=== PATIENT | male | born 1955 | race African-American/Black ===

== ENCOUNTER 2016-09-11 14:21 | Emergency (ER) | payer OTHER ==
[2016-09-11 14:34] VITALS: BP 109/69; PULSE 86; TEMP 97.9; BMI 23.5
[2016-09-11] MEDS ORDERED: LIDOCAINE 5% TOPICAL PATCH TP ONE (14:48)
--- NOTE | 2016-09-11 14:54 | PDOC ---
History of Present Illness - General Chief Complaint: Pain, Acute Stated Complaint: LEG PAIN Time Seen by Provider: 09/11/16 14:31 History Source: Patient - History of Present Illness Occurred: reports: yesterday Severity: Yes: moderate Lower Extremity Pain Location: right: other (thigh) Past History - Past Medical History Allergies/Adverse Reactions: Allergies Allergy/AdvReac Type Severity Reaction Status Date / Time Penicillins Allergy Verified 09/11/16 14:23 aspirin AdvReac Intermediate Verified 09/11/16 14:23 Home Medications: Ambulatory Orders Ammonium Lactate Lotion [Lac-Hydrin 12] 1 applic TP DAILY 07/26/15 Clotrimazole 15 gm TP BID 07/26/15 Fluocinonide 0.05% Cream [Lidex 0.05% Cream -] 1 applic TP BID 07/26/15 Ergocalciferol (Vitamin D2) [Vitamin D2] 50,000 unit PO WEEKLY #5 capsule Folic Acid - 1 mg PO DAILY #30 tablet 07/27/15 Lactobacillus Acidophilus/Pect [Acidophilus-Pectin Capsule] 1 tab PO BID #60 capsule 07/27/15 Lactulose (Oral Use) [Cephulac -] 20 gm PO BID #6 bottle 07/27/15 Levetiracetam 500 mg PO BID #60 tablet 07/27/15 Omeprazole 20 mg PO DAILY #30 capsule.dr 07/27/15 Rifaximin [Xifaxan -] 1 tab PO BID #60 tablet 07/27/15 Sucralfate Oral Suspension [Carafate Oral Suspension -] 1 gm PO TID #60 ml 07/27 Tamsulosin HCl [Flomax -] 0.4 mg PO DAILY #30 cap.er.24h 07/27/15 Lidocaine 5% Patch [Lidoderm Patch -] 1 patch TP DAILY #7 patch 09/11/16 Spironolactone 50 mg PO ASDIR 09/11/16 GI Disorders: Yes (GI bleed) HTN: Yes Liver Disease: Yes (HEP C,cirrhosis) - Surgical History Abdominal Surgery: Yes (GASTRIC BYPASS) - Psycho/Social/Smoking Cessation Hx Anxiety: No Suicidal Ideation: No Smoking History: Former smoker Have you smoked in the past 12 months: No Number of Cigarettes Smoked Daily: 10 If you are a former smoker, when did you quit?: 30 years ago Information on smoking cessation initiated: No 'Breaking Loose' booklet given: 09/10/13 Hx Alcohol Use: No Drug/Substance Use Hx: Yes (HX OF HERION, CRACK) Substance Use Type: Cocaine, Heroin Hx Substance Use Treatment: Yes Review of Systems - Review of Systems Constitutional: No: Chills, Fever Musculoskeletal: No: Back Pain, Joint Pain, Joint Swelling, Muscle Weakness Neurological: No: Numbness, Tingling, Weakness *Physical Exam - Vital Signs Last Vital Signs Temp Pulse Resp BP Pulse Ox 97.9 F 86 18 109/69 98 09/11/16 14:24 09/11/16 14:24 09/11/16 14:24 09/11/16 14:24 09/11/16 14:24 - Physical Exam General Appearance: Yes: Appropriately Dressed. No: Apparent Distress HEENT: positive: Normal Voice Neck: positive: Supple Respiratory/Chest: negative: Respiratory Distress Musculoskeletal: positive: Normal Inspection Extremity: positive: Normal Inspection, Tender. 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 Pain located to posterior aspect of right thigh, unable to describe and does not radiate. Denies any back pain currently and no sensory changes, lower extremity weakness. Patient continues to be able to bear weight with his walker. No history of similar pain in the past. States he saw his doctor yesterday and given naproxen with no relief. Pt well berkley and in in NAD w/ minimal ttp to posterior R thigh but no swelling or skin changes otherwise. Unclear etiology of pain at this time, possibly musculoskeletal. Dc w/ lidoderm patch and encourage PMD f/u if pain persists. *DC/Admit/Observation/Transfer Diagnosis at time of Disposition: Thigh pain Qualifiers: Laterality: right Qualified Code(s): M79.651 - Pain in right thigh - Discharge Dispostion Disposition: HOME - Prescriptions Prescriptions: Lidocaine 5% Patch [Lidoderm Patch -] 1 patch TP DAILY #7 patch - Patient Instructions Additional Instructions: Use patch as directed and follow up with your PMD if pain persists
== END 2016-09-11 15:22 | disposition home or self-care (01) ==
LOC: JERFT 14:21
DX: M79.651 Pain in right thigh (principal); I10 Essential (primary) hypertension; K74.69 Other cirrhosis of liver; B19.20 Unspecified viral hepatitis C without hepatic coma; Z87.891 Personal history of nicotine dependence
CPT/HCPCS: 99281-25

== ENCOUNTER 2016-11-28 19:00 | Inpatient (IN) | payer OTHER ==
--- NOTE | 2016-11-28 20:26 | PDOC ---
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 Patient reports 2 day ago he woke up when he noted some minimal swelling to the left eye. States applying a cold compress to the left eye with no improvement. He reports today the swelling became worse and now he is unable to open his eye. Denies any changes in vision. Also reports decreased appetite because he has been feeling unwell. The patient denies fever, chills, cough, SOB, chest pain, and palpitations. The patient denies abdominal pain, nausea, vomiting, and diarrhea. Allergies: penicillin, aspirin Social History: Polysubstance abuse (heroin and cocaine). Former etoh abuse ( quit several years ago) Past Surgical History: gastric bypass PCP: Dr. Rangel Bernard <Jessy Epps - Last Filed: 11/29/16 01:26> - General Stated Complaint: CELLULITIS LEFT EYE Time Seen by Provider: 11/28/16 20:24 Past History - Past Medical History GI Disorders: Yes (GI bleed) HTN: Yes Liver Disease: Yes (HEP C,cirrhosis) - Surgical History Abdominal Surgery: Yes (GASTRIC BYPASS) - Psycho/Social/Smoking Cessation Hx Anxiety: No Suicidal Ideation: No Smoking History: Current some day smoker Have you smoked in the past 12 months: Yes Number of Cigarettes Smoked Daily: 3 If you are a former smoker, when did you quit?: 30 years ago Information on smoking cessation initiated: No 'Breaking Loose' booklet given: 09/10/13 Hx Alcohol Use: No Drug/Substance Use Hx: No Substance Use Type: Cocaine, Heroin Hx Substance Use Treatment: Yes <Arlene Winter - Last Filed: 11/29/16 00:13> <Jessy Epps - Last Filed: 11/29/16 01:26> - Past Medical History Allergies/Adverse Reactions: Allergies Allergy/AdvReac Type Severity Reaction Status Date / Time Penicillins Allergy Verified 11/28/16 19:08 aspirin AdvReac Intermediate Verified 11/28/16 19:08 Home Medications: Ambulatory Orders Unobtainable [Unobtainable] 11/28/16 Review of Systems - Review of Systems Able to Perform ROS?: Yes Comments:: 11/28/16 21:07 CONSTITUTIONAL: +lack of appetite Absent: fever, no chills, no fatigue EYES: +left eye swelling and redness Absent: visual changes ENT: Absent: ear pain, no sore throat CARDIOVASCULAR: Absent: chest pain, no palpitations RESPIRATORY: Absent: cough, no SOB GI: Absent: abdominal pain, no nausea, no vomiting, no constipation, no diarrhea GENITOURINARY: Absent: dysuria, no frequency, no hematuria MUSCULOSKELETAL: Absent: back pain, no arthralgia, no myalgia SKIN: Absent: rash NEURO: Absent: headache <Jessy Epps - Last Filed: 11/29/16 01:26> *Physical Exam - Vital Signs Last Vital Signs Temp Pulse Resp BP Pulse Ox 102.1 F H 20 134/76 11/28/16 19:05 11/28/16 19:05 11/28/16 19:05 <Arlene Winter - Last Filed: 11/29/16 00:13> - Vital Signs Last Vital Signs Temp Pulse Resp BP Pulse Ox 102.1 F H 20 134/76 11/28/16 19:05 11/28/16 19:05 11/28/16 19:05 - Physical Exam Comments: 11/28/16 21:07 GENERAL: Well-appearing, well-nourished. No apparent distress. HEENT: Normocephalic, atraumatic. PERRL, EOM intact. No conjunctival pallor. Sclera are non-icteric. Left eye redness and swelling that extends across the bridge of the nose to the right side of the face. Minimal pus from the left eye. No pain with shining light to the eyes. CARDIOVASCULAR: Normal S1, S2. Regular rate and rhythm. PULMONARY: Clear to auscultation bilaterally. ABDOMEN: Soft, non-distended, non-tender. EXTREMITIES: Normal ROM in all four extremities. No gross deformities. SKIN: Warm, dry. No rash NEUROLOGICAL: No focal neurological deficits. <Jessy Epps - Last Filed: 11/29/16 01:26> Heart Score/ECG Review - ECG Impressions Comment:: 11/29/16 01:23 NSR with PVC @92bpm <Jessy Epps - Last Filed: 11/29/16 01:26> ED Treatment Course - LABORATORY CBC & Chemistry Diagram: 11/28/16 21:50 11/28/16 21:50 <Arlene Winter - Last Filed: 11/29/16 00:13> - LABORATORY CBC & Chemistry Diagram: 11/28/16 21:50 11/28/16 21:50 - RADIOLOGY Radiograph Interpretation: 11/29/16 00:26 EXAM: CT facial without contrast Reviewed by Imaging recreational therapy aide: FINDINGS: There is soft tissue thickening involving the pre-orbital and pre-nasal soft tissues as well as the upper cheek. This is most likely the known cellulitis. No abscess is identified. No post septal component. The globes and orbits are normal. I cannot identify an immature abscess or fluid collection. However, there are some gas bubbles in the soft tissues just anterior to the inferior portion of the left orbit. Correlate with physical exam in this area. EXAM: CT brain without contrast Reviewed by Imaging recreational therapy aide: FINDINGS: Chronic microvascular changes in the cerebral white matter. No hemorrhage. No mass. No visible acute infarct. Involutional changes are noted. <Jessy Epps - Last Filed: 11/29/16 01:26> Medical Decision Making - Medical Decision Making 11/28/16 23:57 Pt comes with facial cellulitis; WBC 24; pt treated wtrh clindamycin and vancomycin. Pt will be admitted for IV abx. He is also dehydrated BUN and cr are elevated. Pt will be hydrated. CT scans of face and brain done. Patient Name: Andrey Lopez THIS IS A PRELIMINARYREPORT FROM IMAGING PRINTING EQUIPMENT MECHANIC EXAM: CT brain without contrast IMAGES: 77 EXAM DATE AND TIME: 2016-11-28 22: 22:04.0 REASON FOR EXAM: Facial/orbital cellulitis COMPARISON: No FINDINGS: Chronic microvascular changes in the cerebral white matter. No hemorrhage. No mass. No visible acute infarct. Involutional changes are noted. THIS DOCUMENT HAS BEEN ELECTRONICALLY SIGNED 11/29/16 00:00 Patient Name: Andrey Lopez THIS IS A PRELIMINARYREPORT FROM IMAGING PRINTING EQUIPMENT MECHANIC EXAM: CT facial without contrast IMAGES: 458 EXAM DATE AND TIME: 2016-11-28 22 :24:49.0 REASON FOR EXAM: Facial/orbital cellulitis COMPARISON: No FINDINGS: There is soft tissue thickening involving the pre-orbital and pre-nasal soft tissues as well as the upper cheek. This is most likely the known cellulitis. No abscess is identified. No post septal component. The globes and orbits are normal. I cannot identify an immature abscess or fluid collection. However, there are some gas bubbles in the soft tissues just anterior to the inferior portion of the left orbit. Correlate with physical exam in this area. THIS DOCUMENT HAS BEEN ELECTRONICALLY SIGNED Pt will be admitted to the hospitalist, as he goes to [facility]. <Arlene Winter - Last Filed: 11/29/16 00:13> *DC/Admit/Observation/Transfer - Discharge Dispostion Admit: Yes <Arlene Winter - Last Filed: 11/29/16 00:13> - Attestations Scribe Attestion: 11/28/16 21:08 Documentation prepared by Jessy Epps, acting as medical billing supervisor for Arlene Winter MD/DO. <Jessy Epps - Last Filed: 11/29/16 01:26> Diagnosis at time of Disposition: Facial cellulitis, Periorbital cellulitis of left eye, Alcoholic cirrhosis, Hepatitis C - Referrals
[2016-11-28] MEDS ORDERED: CLINDAMYCIN 600MG PREMIX IVPB 50 ML IVPB ONE ×2 (20:28→20:47)
[2016-11-28] MEDS ORDERED: VANCOMYCIN 1,000 MG in DEXTROSE 5%-WATER - 250 ML IVPB ONE (20:45)
[2016-11-28] MEDS ORDERED: ACETAMINOPHEN INJECTION 100 ML IVPB ONE (20:51)
[2016-11-28] MEDS ORDERED: SODIUM CHLORIDE 0.9% 500 ML INFUS.BAG IV ONE (21:01)
[2016-11-28] MEDS ORDERED: ACETAMINOPHEN 1000 MG/100 ML VIAL (NON FORMULARY) IVPB ONE (21:01)
[2016-11-28 22:13] LABS: MCH 27.7 pg (25.7-33.7); MCHC 32.7 g/dl (32.0-35.9); MEAN CELL VOLUME 84.7 fl (80-96); MEAN PLT VOLUME 9.2 fl (7.5-11.1); PLATELET COUNT 121 K/MM3 (134-434); RDW 16.5 % (11.9-15.9); WHITE BLOOD COUNT 42.7 K/mm3 (4.0-10.0)
[2016-11-28 22:25] LABS: INR 1.34 (0.82-1.09); PROTHROMBIN TIME (PATIENT) 14.8 SEC (9.98-11.88)
[2016-11-28 22:27] LABS: ACTIVATED PTT 35.9 SECONDS (26.9-34.4)
[2016-11-28 22:51] LABS: ALBUMIN 2.4 g/dl (3.4-5.0); BILIRUBIN,TOTAL 1.9 mg/dL (0.2-1.0); CALCIUM 8.5 mg/dL (8.5-10.1); COCKROFT - GAULT 27.43; CREATININE 2.4 mg/dL (0.7-1.3); TOT PROT 7.9 g/dl (6.4-8.2)
[2016-11-28] MEDS ORDERED: VANCOMYCIN 1 GRAM (PRE-DOCKED) 250 ML IVPB ONE (23:51)
[2016-11-29] MEDS ORDERED: SODIUM CHLORIDE 1,000 ML IV SCH (01:15)
--- NOTE | 2016-11-29 01:16 | HP ---
Admitting History and Physical - Admission Chief Complaint: facial swelling History of Present Illness: 60 yo m with pmhx of Hep C/Cirrohsis, CKD III, hep.encephalopathy, GI bleed from varices, pancreatitis, htn, seizure do, pancreatitis, polysubstance abuse, chronic LBP who presents to the ER for evaluation of facial erythema and swelling. he is a vague historian. He reports waking up 2 days ago with facial swelling. He denies sob, fevers, cough, chills, sweats, nausea vomiting, diarrhea, trauma. he denies previous episodes of facial swelling or redness. In the ER he was found to have wbc of 42, and temp of 102. A Facial CT scan showed soft tissue thickening of the pre-orbital and prenasal soft tissues as swell as upper cheek, and gas bubbles in the soft tissues just anterior to the inferior portion of the L orbit. He was given Vanc and Clindamycin in the ER. PMH: Hep C/Cirrohsis, CKD III, hep.encephalopathy, GI bleed from varices, pancreatitis, htn, seizure do, pancreatitis, polysubstance abuse, chronic LBP Shx: Gastric Bypass Fam hx: Unknown Social hx: Smoker Ros neg except for HPI Physical Gen- in nad, sleepy HENT- facial swelling, dry DC to L eyelid, erythema to face, trachea midline, no thyromegaly, thrush on tongue Resp- no cough, no ronchi, no wheeze, no rales Cards- s1s2 heard, no JVD, no leg edema, RRR Skin- erythema to BL facial orbits, and cheeks. Swelling to BL orbits L>R, small abrasion to left eyelid Gi- soft nontender, no guarding, no rebound, BS+, no rigidity Neuro- alert, sleepy, no seizures, speech clear Psych- cooperative, no agitation Prob list facial cellulitis Sepsis hponatremia CKD thrombocytopenia transaminitis Lactic acidosis Imagin11/29/16 00:26 EXAM: CT facial without contrast Reviewed by Imaging refrigeration engineering teacher: FINDINGS: There is soft tissue thickening involving the pre-orbital and pre-nasal soft tissues as well as the upper cheek. This is most likely the known cellulitis. No abscess is identified. No post septal component. The globes and orbits are normal. I cannot identify an immature abscess or fluid collection. However, there are some gas bubbles in the soft tissues just anterior to the inferior portion of the left orbit. Correlate with physical exam in this area. EXAM: CT brain without contrast Reviewed by Imaging refrigeration engineering teacher: FINDINGS: Chronic microvascular changes in the cerebral white matter. No hemorrhage. No mass. No visible acute infarct. Involutional changes are noted. CXR appears clear by my eye A/p-60 yo m with pmhx of Hep C/Cirrohsis, CKD III, hep.encephalopathy, GI bleed from varices, pancreatitis, htn, seizure do, pancreatitis, polysubstance abuse, chronic LBP who presents to the ER for evaluation of facial erythema and swelling admitted for evaluation of their emergent condition 1. Facial cellulitis Given Vanc and Clindamycin in the ER Cont Vanc and Clinda; Add LVQ renal dosing Stat plastic surgery consult called; awaiting call back Lrinec score 7 FU Crp ID consult Continue ABX 2. Sepsis likely 2/2 cellulitis Continue ABX FU BC Cautious w IVF given hx of Varices 3. ?SILVANA on CKD Baseline Cr ~ 1.6-1.7 Monitor BMP FU renal US FU urine lytes 4. Hyponatremia (mild) Monitor BMP 5. Transamintis likely 2/2 liver disease Monitor LFTs 6. Thrombocytopenia likely chronic and 2/2 liver disease No S/S of bleeding monitor Plt 7. Lactic acidosis likely 2/2 cellulitis Judicious IVF given history of variceal bleed Trend lactic DVT prophy SCD, OOB FEN Gentle Hydration Low salt Called and paged plastics 2nd time at 330AM 11/29/16 Dispo- Requires > 2MN stay for cellulitis. Per RN, the patient is not on any home meds but reportedly gets his meds from [facility]. RN asked to FU in AM with pharmacy. History Source: Patient Limitations to Obtaining History: No Limitations - Past Medical History NPS: Yes: Other (HE) Gastrointestinal: Yes: Esophageal Varices Hepatobiliary: Yes: Cirrhosis - Smoking History Smoking history: Current some day smoker Have you smoked in the past 12 months: Yes Aproximately how many cigarettes per day: 3 If you are a former smoker, when did you quit?: 30 years ago - Alcohol/Substance Use Hx Alcohol Use: No Home Medications - Allergies Allergies/Adverse Reactions: Allergies Allergy/AdvReac Type Severity Reaction Status Date / Time Penicillins Allergy Verified 11/28/16 19:08 aspirin AdvReac Intermediate Verified 11/28/16 19:08 - Home Medications Home Medications: Ambulatory Orders NK [No Known Home Medication] 11/29/16 Physical Examination Vital Signs: Vital Signs Temperature 99.9 F H 11/28/16 23:48 Pulse Rate Respiratory Rate 20 11/28/16 19:05 Blood Pressure 134/76 11/28/16 19:05 O2 Sat by Pulse Oximetry (%) Labs: CBC, BMP 11/28/16 21:50 11/28/16 21:50 Visit type - Emergency Visit Emergency Visit: Yes ED Registration Date: 11/29/16 Care time: The patient presented to the Emergency Department on the above date and was hospitalized for further evaluation of their emergent condition. - New Patient This patient is new to me today: Yes Date on this admission: 11/29/16 - Critical Care Critical Care patient: No
[2016-11-29] MEDS ORDERED: LEVOFLOXACIN 750 MG IVPB 150 ML IVPB ONE (01:45)
[2016-11-29] MEDS ORDERED: SODIUM CHLORIDE 500 ML IV STA (02:17)
[2016-11-29 03:24] VITALS: BMI 22.1
[2016-11-29] MEDS: CLINDAMYCIN 600MG PREMIX IVPB 50 ML IVPB SCH ×3 (05:39→17:18)
--- NOTE | 2016-11-29 08:01 | PN ---
Physical Exam: SUBJECTIVE: Patient seen and examined. States he feels "stuffy". Denies shortness of breath. He denies any new mediations, any trauma. OBJECTIVE: Periorbital facial cellulitis Left eye shut closed secondary to facial edema +pus drainage, will order eye drops antbx, warm compressess and eye ointment @ Spoke with answering service for Dr. Isauro Sheets [phone] to call in consult - Dr. Sheets unable to see pt today Called placed to Dr. Juan David Stephenson MD to see patient this evening Spoke to ID (Mikayla) who will come see pt today ID wants pt on Meropenem, Clindamycin, Vancomycin Patient has Penicillin allergy Will initiate transfer to [facility] - spoke with Dr. Schmitt (plastic surgery) and Dr. Molina (oral surgery) Since source of cellulitis is uncertain, pt may need admission to internal medicine @ [facility] to fax paperwork and then will contact me with an accepting physician. Also called in ophthalmology consult with Dr. Wall - I spoke to call service and stressed that it is important for pt to be seen today Discussed CT findings with radiologist, no air in tissues seen, air under the lid adjacent to globe. No abscess Vital Signs Period Temp Pulse Resp BP Sys/Eisenberg Pulse Ox Last 24 Hr 98.1 F-99.9 F 78-85 16-18 130-136/63-70 98-98 General: Alert and oriented x 3, in on acute distress HEAD: periorbital facial swelling, +pus of left eye, erythema to face, trachea midline, no thyromegaly, thrush on tongue - +pain of facial cellulitis RESPIRATORY: Bilateral lungs clear to auscultation, no cough, no rhonchi HEART- regular rate and rhytym SKIN: +erythema to bilateral facial orbits, and cheeks. Swelling to BL orbits L> R, small abrasion to left eyelid - +pus drainage of left eye GI: soft nontender, no guarding, no rebound, BS+, no rigidity NEURO: alert and oriented x 3 Psych- cooperative, no agitation Ambulates, steady gait Laboratory Results - last 24 hr 11/29/16 11/29/16 11/29/16 00:36 02:07 04:00 Lactic Acid 2.303 H* Ammonia 20.81 U Random Total Protein 21 H Urine Creatinine 119.0 Protein/Creatinin Ratio 1.9 11/29/16 04:00 Lactic Acid Ammonia U Random Total Protein Urine Creatinine 119.0 Protein/Creatinin Ratio Active Medications Generic Name Dose Route Start Last Admin Trade Name Capo PRN Reason Stop Dose Admin Acetaminophen 650 mg 11/29/16 00:59 Tylenol - PO Q12H PRN FEVER OR PAIN Heparin Sodium (Porcine) 5,000 unit 11/29/16 22:00 Heparin - SQ TID PIERO Clindamycin Phosphate 50 mls @ 100 mls/hr 11/29/16 06:00 11/29/16 05:39 Cleocin 600 Mg Premix Ivpb - IVPB 100 mls/hr Q8H-IV PIERO Administration Vancomycin HCl 1,000 mg/ 250 mls @ 250 mls/hr 11/29/16 10:00 Dextrose IVPB DAILY PIERO Protocol Sodium Chloride 1,000 mls @ 42 mls/hr 11/29/16 01:15 11/29/16 01:40 Normal Saline - IV 42 mls/hr ASDIR PIERO Administration Levofloxacin 150 mls @ 100 mls/hr 11/30/16 10:00 Levaquin 750 Mg Premixed Ivpb - IVPB Q48H PIERO ASSESSMENT/PLAN: Patient is a 60 year old male with a significant past medical history of Hepatitis C, cirrhosis, CKD III, hep. encephalopathy, GI bleed from varices, pancreatitis, hypertension, seizure disorder, pancreatitis and polysubstance abuse (+cocaine). He presented to the ED on 11/29/2016 with facial erythema and swelling. Patient is a poor historian. As per patient, he woke up about 2 days ago with facial swelling and facial pain. He denies any shortness of breath, fever, chills, nausea or vomiting. He denies any trauma or any recent new medications. He further any recent alcohol or drug use. States last time he drank or did drugs was "last January". On admission, he was found to have the following labs: WBC of 42, and fever of 102F, lactic acidosis of 2.3. A facial CT was done call box wirer showed soft tissue thickening of the preorbital and prenasal soft tissues as well as the upper cheeks. There were gas bubbles present in the soft tissues anterior to the inferior portion of the left orbit. In the ER he was given Clindamycin and Vancomycin. Discussed case with radiologist, no air in tissues seen, air under the lid adjacent to globe. No abscess Transfer to [facility] initiated this morning, however patient seems to be responding to the antibiotics, no abscess was seen on CT and as per radiologist , no air in tissues seen (gas bubbles), air present under the lid. If patient continues to respond will continue to treat @ [place], but if swelling worsens, may need transfer to [facility] Imaging: Facial bone CT 11/29/2016: No acute facial fracture opacification of the paranasal sinus mastoid air cells or middle ear, left facial Head CT 11/29/2016: No evidence of acute intracranial hemorrhage, edema or midline shift, no mass effect or skull fracture ID: SIRS: Sepsis secondary to facial cellulitis - acute Assessment/Plan: Met sepsis criteria on admission Severe facial cellulitis on admission, patient denies trauma, new medications Pus of left eye culture sent Lactic acidosis @2.3, WBC 42, Fever 102F Given Vancomycin and Clindamycin in ER Now on Vancomycin daily, Meropenem q9 and Clindamycin q8 Normal saline @100cc/hr Repeat cbc/cmp ID consulted Ophthalmology: Lolly-orbital swelling/edema/pus Assessment/Plan: Left eye with drainage of pus, left eye closed shut Unable to assess left eye secondary to edema, pain Right eye pupil reactive to light, no trauma to right eye noted Ophthalmology consulted Bacitracin to upper lids q4 Bacitracin ointment to bilateral eyes @ hs Tobramycin eye drops Warm compresses to facial cellulitis Eyelet Punch Operator consulted Neuro: History of seizures Assessment/Plan: On Keppra 500mg BID Will order Keppra level in a.m. Renal: CKD III - acute on chronic Assessment/Plan: Creat 2.2, baseline 1.2 Normal saline @ 100cc/hr Monitor SILVANA in setting of sepsis Cardiology: Hypertension - controlled Assessment/Plan: Lisinopril on hold secondary to sepsis Utox + for cocaine, beta inocencia contraindicated Monitor BP Echo ordered secondary to htn and recent cocaine use F.E.N. Fluids: Normal saline @100cc/hr Electrolytes: monitor Nutrition: renal diet Prophylaxis: DVT: Heparin SC GI: Protonix 40mg Disposition: Requires inpatient hospitalization. Full Code. Visit type - Emergency Visit Emergency Visit: Yes ED Registration Date: 11/29/16 Care time: The patient presented to the Emergency Department on the above date and was hospitalized for further evaluation of their emergent condition. - New Patient This patient is new to me today: Yes Date on this admission: 11/29/16 - Critical Care Critical Care patient: No - Discharge Referral [facility]erred to [facility] Med P.C.: No
[2016-11-29 08:19] LABS: BASOPHIL 0.3 % (0-2.0); EOSINOPHIL 0.4 % (0-4.5); MCH 28.4 pg (25.7-33.7); MCHC 33.2 g/dl (32.0-35.9); MEAN CELL VOLUME 85.6 fl (80-96); MEAN PLT VOLUME 9.4 fl (7.5-11.1); PLATELET COUNT 103 K/MM3 (134-434); RDW 17.2 % (11.9-15.9); WHITE BLOOD COUNT 36.8 K/mm3 (4.0-10.0)
[2016-11-29 08:32] LABS: ALBUMIN 1.8 g/dl (3.4-5.0); CALCIUM 7.9 mg/dL (8.5-10.1)
[2016-11-29 08:36] LABS: BILIRUBIN,TOTAL 1.8 mg/dL (0.2-1.0); COCKROFT - GAULT 29.75; CREATININE 2.2 mg/dL (0.7-1.3); TOT PROT 6.5 g/dl (6.4-8.2)
[2016-11-29] MEDS ORDERED: PT OWN MED DRAWER 7, Y5N ONE ×4 (08:44→22:23)
[2016-11-29] MEDS: MEROPENEM 1 GM in DEXTROSE 5%-WATER - 100 ML IVPB SCH ×3 (09:33→22:27)
[2016-11-29] MEDS ORDERED: LEVOFLOXACIN 750 MG IVPB 150 ML IVPB SCH (10:00)
[2016-11-29] MEDS ORDERED: TOBRAMYCIN 0.3% OPHTH SOLN 5 ML BOTTLE OD SCH (10:00)
[2016-11-29 10:02] LABS: URINE MARIJUANA THC NEGATIVE ng/ml (CUTOFF=50)
[2016-11-29] MEDS ORDERED: BACITRACIN/POLYMYXIN B SULFATE 15 GM TUBE TP SCH (11:15)
[2016-11-29] MEDS: SODIUM CHLORIDE 1,000 ML IV SCH (11:41)
[2016-11-29] MEDS ORDERED: BACITRACIN 3.5 GM OPTHALMIC OINT TUBE OD SCH ×2 (12:00→22:00)
--- NOTE | 2016-11-29 13:31 | EKG ---
Test Reason : Blood Pressure : / mmHG Vent. Rate : 092 BPM Atrial Rate : 092 BPM P-R Int : 142 ms QRS Dur : 082 ms QT Int : 358 ms P-R-T Axes : 070 023 081 degrees QTc Int : 442 ms SINUS RHYTHM WITH FREQUENT PREMATURE VENTRICULAR COMPLEXES SEPTAL INFARCT (CITED ON OR BEFORE 20-OCT-2013) ABNORMAL ECG WHEN COMPARED WITH ECG OF 25-JUL-2015 18:03, PREMATURE VENTRICULAR COMPLEXES ARE NOW PRESENT VENT. RATE HAS INCREASED BY 43 BPM T WAVE VARIATION Confirmed by JAIRO ARGUETA MD ([id number]) on 11/29/2016 1:31:03 PM Referred By: Confirmed By:JAIRO ARGUETA MD
[2016-11-29] MEDS: levETIRAcetam 500 MG TABLET (FP) PO SCH ×2 (13:35→22:27)
[2016-11-29] MEDS: TOBRAMYCIN 0.3% OPHTH SOLN 5 ML BOTTLE OD SCH ×3 (13:37→22:29)
[2016-11-29 14:13] LABS: BASOPHIL 0.2 % (0-2.0); EOSINOPHIL 1.3 % (0-4.5); MCH 27.9 pg (25.7-33.7); MCHC 32.2 g/dl (32.0-35.9); MEAN CELL VOLUME 86.7 fl (80-96); MEAN PLT VOLUME 9.3 fl (7.5-11.1); NEUTROPHILS 84.4 % (42.8-82.8); PLATELET COUNT 98 K/MM3 (134-434); RDW 16.8 % (11.9-15.9)
[2016-11-29 14:29] LABS: ALBUMIN 1.9 g/dl (3.4-5.0); BILIRUBIN,TOTAL 1.8 mg/dL (0.2-1.0); CALCIUM 7.8 mg/dL (8.5-10.1); COCKROFT - GAULT 32.72; TOT PROT 6.6 g/dl (6.4-8.2)
[2016-11-29] MEDS ORDERED: SODIUM CHLORIDE 1,000 ML IV STA (14:47)
[2016-11-29] MEDS: PANTOPRAZOLE 40 MG TABLET (FP) PO SCH (14:57)
[2016-11-29] MEDS: ACETAMINOPHEN 325 MG TABLET (FP) PO PRN (14:57)
[2016-11-29] MEDS: TAMSULOSIN HCL 0.4 MG CAP.ER.24H (FP) PO SCH (14:58)
[2016-11-29 15:31] LABS: HIV 1 & 2 AB NEGATIVE; HIV 1 AGp24 NEGATIVE
--- NOTE | 2016-11-29 17:01 | CONSULT ---
Consult Consult Specialty:: infectious diseases Reason for Consultation:: facial cellulitits - History of Present Illness History of Present Illness: 60 yo m with pmhx of Hep C/Cirrohsis, CKD III, hep.encephalopathy, GI bleed from varices, pancreatitis, htn, seizure do, pancreatitis, polysubstance abuse, chronic LBP admitted for facial erythema and swelling. . He reports waking up 2 days ago with facial swelling. He denies sob, fevers, cough, chills, sweats, nausea vomiting, diarrhea, trauma. he denies previous episodes of facial swelling or redness. Denies any bites injuries does not know what happened In the ER he was found to have wbc of 42, and temp of 102. A Facial CT scan showed soft tissue thickening of the pre-orbital and prenasal soft tissues as swell as upper cheek, and gas bubbles in the soft tissues just anterior to the inferior portion of the L orbit. He was given Vanc and Clindamycin in the ER. 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: Other (HE) Gastrointestinal: Yes: Esophageal Varices Hepatobiliary: Yes: Cirrhosis - Alcohol/Substance Use Hx Alcohol Use: No - Smoking History Smoking history: Current some day smoker Have you smoked in the past 12 months: Yes Aproximately how many cigarettes per day: 3 If you are a former smoker, when did you quit?: 30 years ago Home Medications - Allergies Allergies/Adverse Reactions: Allergies Allergy/AdvReac Type Severity Reaction Status Date / Time Penicillins Allergy Verified 11/28/16 19:08 aspirin AdvReac Intermediate Verified 11/28/16 19:08 - Home Medications Home Medications: Ambulatory Orders Folic Acid 1 mg PO 11/29/16 Levetiracetam [Keppra -] 500 mg PO BID 11/29/16 Lisinopril 10 mg PO 11/29/16 Ropinirole HCl 0.25 mg PO 11/29/16 Spironolactone [Aldactone] 50 mg PO BID 11/29/16 Tamsulosin HCl [Flomax] 0.4 mg PO DAILY 11/29/16 Vit B Comp/C/FA/Iron/Vit E [Vitamin B Complex Tablet] 1 each PO 11/29/16 Review of Systems - Review of Systems Constitutional: reports: No Symptoms Eyes: reports: No Symptoms HENT: reports: Other (lt eye swelling lt facial swelling pus from the wound from the lt eyelid) Neck: reports: No Symptoms Cardiovascular: reports: No Symptoms Respiratory: reports: No Symptoms Gastrointestinal: reports: No Symptoms Genitourinary: reports: No Symptoms Breasts: reports: No Symptoms Reported Musculoskeletal: reports: No Symptoms Integumentary: reports: Erythema, Lesions, Wound Neurological: reports: No Symptoms Endocrine: reports: No Symptoms Hematology/Lymphatic: reports: No Symptoms Psychiatric: reports: No Symptoms Physical Exam Vital Signs: Vital Signs Temperature 98.6 F 11/29/16 15:45 Pulse Rate 86 11/29/16 15:45 Respiratory Rate 16 11/29/16 10:00 Blood Pressure 101/71 11/29/16 15:45 O2 Sat by Pulse Oximetry (%) 98 11/29/16 09:00 Constitutional: Yes: Calm, Mild Distress Eyes: Yes: Other (left eye shut due to swelling,left sided facial cellulitis wound on the left eyelid pus draiang from the wound) HENT: Yes: Atraumatic Neck: Yes: Supple, Trachea Midline Cardiovascular: Yes: Regular Rate and Rhythm Respiratory: Yes: Regular, CTA Bilaterally Gastrointestinal: Yes: Normal Bowel Sounds, Soft Musculoskeletal: Yes: WNL Extremities: Yes: WNL Integumentary: Yes: Erythema, Other (wound on left eyelid) Wound/Incision: Yes: Draining Neurological: Yes: Alert, Oriented Psychiatric: Yes: Alert, Oriented Labs: CBC, BMP 11/29/16 13:50 11/29/16 13:50 Imaging - Results Cat Scan: Report Reviewed, Image Reviewed Assessment/Plan Problems (1) Facial cellulitis Code(s): L03.211 - CELLULITIS OF FACE (2) Alcoholic cirrhosis Code(s): K70.30 - ALCOHOLIC CIRRHOSIS OF LIVER WITHOUT ASCITES (3) Hepatitis C Code(s): B19.20 - UNSPECIFIED VIRAL HEPATITIS C WITHOUT HEPATIC COMA (4) Seizure disorder Code(s): G40.909 - EPILEPSY, UNSP, NOT INTRACTABLE, WITHOUT STATUS EPILEPTICUS (5) CKD (chronic kidney disease) Code(s): N18.9 - CHRONIC KIDNEY DISEASE, UNSPECIFIED drug abuse plan will start patient on meropenam clinda await for cx report await for opthalm to see the patient close monitoring rest as per primary
--- NOTE | 2016-11-29 19:14 | CONSULT ---
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) Gastrointestinal: Yes: Esophageal Varices Hepatobiliary: Yes: Cirrhosis - Alcohol/Substance Use Hx Alcohol Use: No - Smoking History Smoking history: Current some day smoker Have you smoked in the past 12 months: Yes Aproximately how many cigarettes per day: 3 If you are a former smoker, when did you quit?: 30 years ago Home Medications - Allergies Allergies/Adverse Reactions: Allergies Allergy/AdvReac Type Severity Reaction Status Date / Time Penicillins Allergy Verified 11/28/16 19:08 aspirin AdvReac Intermediate Verified 11/28/16 19:08 - Home Medications Home Medications: Ambulatory Orders Folic Acid 1 mg PO 11/29/16 Levetiracetam [Keppra -] 500 mg PO BID 11/29/16 Lisinopril 10 mg PO 11/29/16 Naproxen [Naprosyn -] 500 mg PO BID 11/29/16 Ropinirole HCl 0.25 mg PO 11/29/16 Spironolactone [Aldactone] 50 mg PO BID 11/29/16 Tamsulosin HCl [Flomax] 0.4 mg PO DAILY 11/29/16 Vit B Comp/C/FA/Iron/Vit E [Vitamin B Complex Tablet] 1 each PO 11/29/16 Physical Exam Vital Signs: Vital Signs Temperature 98.6 F 11/29/16 15:45 Pulse Rate 86 11/29/16 15:45 Respiratory Rate 16 11/29/16 10:00 Blood Pressure 101/71 11/29/16 15:45 O2 Sat by Pulse Oximetry (%) 98 11/29/16 09:00 Labs: CBC, BMP 11/29/16 13:50 11/29/16 13:50 Assessment/Plan Patient is a 61 year-old black male admitted with cellulitis of the upper cheeks and eyelids that has improved since this morning. This patient gives a simple history of going to sleep and waking up with significant redness and swelling of the face. Additional history is that he denies any alcohol or substance abuse or recent trauma. PE: Patient is obviously cachectic with temporal and facial wasting. His upper cheeks and eyelids are swollen bilaterally. The left eye is swollen shut with eschars on the medial left upper lids. There are no other wounds on the face. Vision is normal in both eyes according to patient. He is edentulous and there are no intra-oral wounds or obvious pathology. Nasal exam is normal although the dorsum and glabella are swollen. Labs show a high WBC and Cocaine. HIV Neg. Assessment: This case is unusual. Cellulitis and facial swelling is not severe and is improving. Case is consistent with pressure changes on the upper face, with eschar over open wound of left upper eyelid. I believe this issue is NOT new and this has evolved over several days or a week. Suggest: Continue current IV antibiotic regimen and elevation. No surgical intervention indicated. Please reconsult if necessary. Thank you.
[2016-11-29] MEDS ORDERED: TOBRAMYCIN/DEXAMETHASONE OPHTH. OINTMENT 1 TUBE OS SCH (22:00)
[2016-11-29] MEDS ORDERED: VANCOMYCIN 1 GRAM (PRE-DOCKED) 250 ML IVPB SCH (22:00)
[2016-11-29] MEDS: HEPARIN NA (PORCINE) 5,000 UNITS/ML 1ML VIAL SQ SCH (22:27)
[2016-11-29] MEDS: TOBRAMYCIN/DEXAMETHASONE OPHTH. OINTMENT 1 TUBE OS SCH (22:28)
[2016-11-30] MEDS ORDERED: PT OWN MED DRAWER 7, Y5N ONE ×4 (02:33→17:39)
[2016-11-30] MEDS: MEROPENEM 1 GM in DEXTROSE 5%-WATER - 100 ML IVPB SCH ×4 (02:43→21:54)
[2016-11-30] MEDS: CLINDAMYCIN 600MG PREMIX IVPB 50 ML IVPB SCH ×3 (02:43→17:53)
[2016-11-30] MEDS: TOBRAMYCIN 0.3% OPHTH SOLN 5 ML BOTTLE OD SCH ×5 (06:35→21:58)
[2016-11-30] MEDS: HEPARIN NA (PORCINE) 5,000 UNITS/ML 1ML VIAL SQ SCH ×4 (06:38→21:56)
--- NOTE | 2016-11-30 08:36 | PN ---
Physical Exam: SUBJECTIVE: Patient seen and examined. He states he feels like he is not improving but acknowledges that he can now open his left eye slightly. Denies any visual deficits, denies headache. OBJECTIVE: Facial edema improving, pt attempting to open left eye, still some pus drainage from this eye - gram stain pending Spoke with plastic surgeon yesterday - no surgical intervention at this time Film Editor Supervisor paper/chart note reviewed - no visual loss of either eye. Patient is vague about cause of cellulitis or how long he has had same but since his urine is positive for cocaine, has history of falls, seizures and his CPK is elevated, the cellulitis may be due to injury after passing out at home ( secondary to a seizure? drug induced?) patient denies this. Labs pending Vital Signs Period Temp Pulse Resp BP Sys/Eisenberg Pulse Ox Last 24 Hr 98.1 F-98.9 F 74-86 16-18 96-110/56-72 98-98 General: Alert and oriented x 3, in on acute distress HEAD: improving periorbital facial swelling, +pus of left eye, erythema to face , trachea midline, no thyromegaly, thrush on tongue - +pain of facial cellulitis , tongue not swollen, no swelling of oral cavity. RESPIRATORY: Bilateral lungs clear to auscultation, no cough, no rhonchi HEART- regular rate and rhytym SKIN: +erythema to bilateral facial orbits, and cheeks. Swelling to BL orbits L> R, small abrasion to left eyelid - +pus drainage of left eye GI: soft nontender, no guarding, no rebound, BS+, no rigidity NEURO: alert and oriented x 3 PSYCH: cooperative, no agitation Ambulates, steady gait Laboratory Results - last 24 hr 11/29/16 11/29/16 11/29/16 06:30 06:38 06:38 WBC 36.8 H* RBC 4.04 Hgb 11.5 L Hct 34.6 L MCV 85.6 MCHC 33.2 RDW 17.2 H Plt Count 103 L MPV 9.4 Neutrophils % 83.0 H Lymphocytes % 2.0 L D Monocytes % 14.3 H Eosinophils % 0.4 D Basophils % 0.3 D Sodium 139 Potassium 4.6 Chloride 107 Carbon Dioxide 19 L Anion Gap 13 BUN 34 H Creatinine 2.2 H Creat Clearance w eGFR 30.48 Random Glucose 80 Lactic Acid Calcium 7.9 L Total Bilirubin 1.8 H AST 115 H ALT 47 Alkaline Phosphatase 119 H D Total Protein 6.5 Albumin 1.8 L D Opiates Screen Negative Methadone Screen Negative Barbiturate Screen Negative Phencyclidine Screen Negative Ur Amphetamines Screen Negative MDMA (Ecstasy) Screen Negative Benzodiazepines Screen Negative Cocaine Screen Positive U Marijuana (THC) Screen Negative HIV 1&2 Antibody Screen HIV P24 Antigen 11/29/16 11/29/16 11/29/16 06:38 13:50 13:50 WBC 37.0 H* RBC 4.09 Hgb 11.4 L Hct 35.5 MCV 86.7 MCHC 32.2 RDW 16.8 H Plt Count 98 L MPV 9.3 Neutrophils % 84.4 H Lymphocytes % 1.7 L Monocytes % 12.4 H Eosinophils % 1.3 D Basophils % 0.2 Sodium 139 Potassium 4.4 Chloride 107 Carbon Dioxide 21 Anion Gap 11 BUN 33 H Creatinine 2.0 H Creat Clearance w eGFR 34.03 Random Glucose 117 H D Lactic Acid 1.991 Calcium 7.8 L Total Bilirubin 1.8 H AST 120 H ALT 48 Alkaline Phosphatase 115 Total Protein 6.6 Albumin 1.9 L Opiates Screen Methadone Screen Barbiturate Screen Phencyclidine Screen Ur Amphetamines Screen MDMA (Ecstasy) Screen Benzodiazepines Screen Cocaine Screen U Marijuana (THC) Screen HIV 1&2 Antibody Screen HIV P24 Antigen 11/29/16 11/29/16 11/29/16 13:50 13:50 17:10 WBC RBC Hgb Hct MCV MCHC RDW Plt Count MPV Neutrophils % Lymphocytes % Monocytes % Eosinophils % Basophils % Sodium Potassium Chloride Carbon Dioxide Anion Gap BUN Creatinine Creat Clearance w eGFR Random Glucose Lactic Acid 2.383 H* 1.966 Calcium Total Bilirubin AST ALT Alkaline Phosphatase Total Protein Albumin Opiates Screen Methadone Screen Barbiturate Screen Phencyclidine Screen Ur Amphetamines Screen MDMA (Ecstasy) Screen Benzodiazepines Screen Cocaine Screen U Marijuana (THC) Screen HIV 1&2 Antibody Screen Negative HIV P24 Antigen Negative Active Medications Generic Name Dose Route Start Last Admin Trade Name Freq PRN Reason Stop Dose Admin Acetaminophen 650 mg 11/29/16 00:59 11/29/16 14:57 Tylenol - PO 650 mg Q12H PRN Administration FEVER OR PAIN Heparin Sodium (Porcine) 5,000 unit 11/29/16 22:00 11/30/16 06:38 Heparin - SQ Not Given TID PIERO Clindamycin Phosphate 50 mls @ 100 mls/hr 11/29/16 06:00 11/30/16 02:43 Cleocin 600 Mg Premix Ivpb - IVPB 100 mls/hr Q8H-IV PIERO Administration Meropenem 1 gm/ Dextrose 100 mls @ 100 mls/hr 11/29/16 09:00 11/30/16 02:43 IVPB 100 mls/hr Q6H-IV PIERO Administration Protocol Sodium Chloride 1,000 mls @ 100 mls/hr 11/29/16 11:11 11/29/16 11:41 Normal Saline - IV 100 mls/hr ASDIR PIERO Administration Levetiracetam 500 mg 11/29/16 12:45 11/29/16 22:27 Keppra - PO 500 mg BID PIERO Administration Nadolol 20 mg 11/30/16 10:00 Corgard - PO DAILY PIERO Pantoprazole Sodium 40 mg 11/29/16 14:15 11/29/16 14:57 Protonix - PO 40 mg DAILY PIERO Administration Tamsulosin HCl 0.4 mg 11/29/16 14:00 11/29/16 14:58 Flomax - PO 0.4 mg DAILY@0830 PIERO Administration Tobramycin Sulfate 1 drop 11/29/16 14:00 11/30/16 06:35 Tobrex Ophthalmic Solution - OD 1 drop Q4HWA PIERO Administration Tobramycin/Dexamethasone 1 applic 11/29/16 22:00 11/29/16 22:28 Tobradex Ophthalmic Ointment - OS 1 applic HS PIERO Administration ASSESSMENT/PLAN: Patient is a 60 year old male with a significant past medical history of Hepatitis C, cirrhosis, CKD III, hep. encephalopathy, GI bleed from varices, pancreatitis, hypertension, seizure disorder, falls, pancreatitis and polysubstance abuse (+cocaine). He presented to the ED on 11/29/2016 with facial erythema and swelling. Patient is a poor historian. As per patient, he woke up about 2 days ago with facial swelling and facial pain. He denies any shortness of breath, fever, chills, nausea or vomiting. He denies any trauma or any recent new medications. He further any recent alcohol or drug use. States last time he drank or did drugs was "last January". On admission, he was found to have the following labs: WBC of 42, and fever of 102F, lactic acidosis of 2.3. A facial CT was done gear cutter showed soft tissue thickening of the preorbital and prenasal soft tissues as well as the upper cheeks. As per night hawk reading, there were gas bubbles present in the soft tissues anterior to the inferior portion of the left orbit. In the ER he was given Clindamycin and Vancomycin. Discussed case with radiologist, no air in tissues seen, +air under the lid adjacent to globe. No abscess Transfer to [facility] initiated yesterday, however since no surgical intervention is warranted and pt is improving will continue to treat with IV antibiotics. Imaging: Facial bone CT 11/29/2016: No acute facial fracture opacification of the paranasal sinus mastoid air cells or middle ear, left facial Head CT 11/29/2016: No evidence of acute intracranial hemorrhage, edema or midline shift, no mass effect or skull fracture ID: SIRS: Sepsis secondary to facial cellulitis - improving Assessment/Plan: Met sepsis criteria on admission Severe facial cellulitis on admission, patient denies trauma, new medications Pus of left eye culture sent - pending On admission:Lactic acidosis @2.3, WBC 42, Fever 102F Lactic acidosis now resolved, WBC trending down 42>23, low grade fevers overnight (99.9F) Given Vancomycin and Clindamycin in ER Now on Meropenem (day 2) and Clindamycin (day 2), Vancomycin stopped yesterday by ID Normal saline @100cc/hr ID following Ophthalmology: Lolly-orbital swelling/edema/pus Assessment/Plan: Left eye with drainage of pus Unable to assess left eye secondary to edema, pain Right eye pupil reactive to light, no trauma to right eye noted On Tobramycin gtts and ointment Warm compresses to facial cellulitis Film Editor Supervisor notes reviewed Neuro: History of seizures - pt reports last seizure 5 years ago Assessment/Plan: On Keppra 500mg BID Keppra level pending Renal: CKD III - acute on chronic Assessment/Plan: Creat 2.2, baseline 1.2 Normal saline @ 100cc/hr Monitor SILVANA in setting of sepsis Rhabdo rule out Assessment/Plan: unable to exclude this diagnosis CPK was elevated, he has a history of drug use and has hx of seizures face trauma may be due to fall after cocaine use vs. seizure event On IVF @100cc/hr, has good urine output Renal consulted, a pt was told by PCP that he should f/u with renal for CKD Cardiology: Hypertension - controlled Assessment/Plan: Lisinopril on hold secondary to sepsis Utox + for cocaine, beta inocencia contraindicated Monitor BP Echo ordered secondary to htn and recent cocaine use Hematology: Thrombocytopenia - acute Assessment/Plan: Likely secondary to sepsis Monitor F.E.N. Fluids: Normal saline @100cc/hr Electrolytes: monitor Nutrition: renal diet Prophylaxis: DVT: Heparin SC GI: Protonix 40mg Disposition: Requires inpatient hospitalization. Full Code. Visit type - Emergency Visit Emergency Visit: Yes ED Registration Date: 11/29/16 Care time: The patient presented to the Emergency Department on the above date and was hospitalized for further evaluation of their emergent condition. - New Patient This patient is new to me today: No - Critical Care Critical Care patient: No - Discharge Referral Referred to [facility] Med P.C.: No
[2016-11-30 09:09] LABS: BASOPHIL 0.4 % (0-2.0); EOSINOPHIL 0.5 % (0-4.5); MCH 28.2 pg (25.7-33.7); MCHC 32.7 g/dl (32.0-35.9); MEAN CELL VOLUME 86.3 fl (80-96); MEAN PLT VOLUME 9.5 fl (7.5-11.1); NEUTROPHILS 81.9 % (42.8-82.8); PLATELET COUNT 92 K/MM3 (134-434); RDW 17.3 % (11.9-15.9); WHITE BLOOD COUNT 23.2 K/mm3 (4.0-10.0)
[2016-11-30] MEDS: levETIRAcetam 500 MG TABLET (FP) PO SCH ×2 (09:14→21:57)
[2016-11-30] MEDS: NADOLOL 20 MG TABLET (FP) PO SCH (09:14)
[2016-11-30] MEDS: TAMSULOSIN HCL 0.4 MG CAP.ER.24H (FP) PO SCH (09:14)
[2016-11-30] MEDS: PANTOPRAZOLE 40 MG TABLET (FP) PO SCH (09:15)
[2016-11-30 09:37] LABS: ALBUMIN 1.8 g/dl (3.4-5.0); CALCIUM 7.6 mg/dL (8.5-10.1); COCKROFT - GAULT 36.36; CREATININE 1.8 mg/dL (0.7-1.3)
[2016-11-30 09:39] LABS: BILIRUBIN,TOTAL 1.3 mg/dL (0.2-1.0)
[2016-11-30] MEDS ORDERED: LEVOFLOXACIN 750 MG IVPB 150 ML IVPB SCH (10:00)
[2016-11-30] MEDS: ACETAMINOPHEN 325 MG TABLET (FP) PO PRN ×2 (10:07→22:25)
[2016-11-30] MEDS: SODIUM CHLORIDE 1,000 ML IV SCH ×2 (12:19→21:56)
--- NOTE | 2016-11-30 12:38 | PN ---
Progress Note, Physician History of Present Illness: starting to look better still wound draining swelling improving cellulitis improving slightly more opening of the eye - Current Medication List Current Medications: Active Medications Acetaminophen (Tylenol -) 650 mg PO Q12H PRN PRN Reason: FEVER OR PAIN Last Admin: 11/30/16 10:07 Dose: 650 mg Heparin Sodium (Porcine) (Heparin -) 5,000 unit SQ TID PENDING SALE TO [facility] Last Admin: 11/30/16 06:38 Dose: Not Given Clindamycin Phosphate (Cleocin 600 Mg Premix Ivpb -) 50 mls @ 100 mls/hr IVPB Q8H-IV PENDING SALE TO [facility] Last Admin: 11/30/16 09:17 Dose: 100 mls/hr Meropenem 1 gm/ Dextrose 100 mls @ 100 mls/hr IVPB Q6H-IV PIERO PRN Reason: Protocol Last Admin: 11/30/16 09:13 Dose: 100 mls/hr Sodium Chloride (Normal Saline -) 1,000 mls @ 100 mls/hr IV ASDIR PENDING SALE TO [facility] Last Admin: 11/30/16 12:19 Dose: Not Given Levetiracetam (Keppra -) 500 mg PO BID PENDING SALE TO [facility] Last Admin: 11/30/16 09:14 Dose: 500 mg Nadolol (Corgard -) 20 mg PO DAILY PENDING SALE TO [facility] Last Admin: 11/30/16 09:14 Dose: 20 mg Pantoprazole Sodium (Protonix -) 40 mg PO DAILY PENDING SALE TO [facility] Last Admin: 11/30/16 09:15 Dose: 40 mg Tamsulosin HCl (Flomax -) 0.4 mg PO DAILY@0830 PENDING SALE TO [facility] Last Admin: 11/30/16 09:14 Dose: 0.4 mg Tobramycin Sulfate (Tobrex Ophthalmic Solution -) 1 drop OD Q4HWA PENDING SALE TO [facility] Last Admin: 11/30/16 09:15 Dose: 1 drop Tobramycin/Dexamethasone (Tobradex Ophthalmic Ointment -) 1 applic OS HS PENDING SALE TO [facility] Last Admin: 11/29/16 22:28 Dose: 1 applic - Objective Vital Signs: Vital Signs Temperature 98.9 F 11/30/16 10:00 Pulse Rate 78 11/30/16 10:00 Respiratory Rate 18 11/30/16 10:00 Blood Pressure 109/66 11/30/16 10:00 O2 Sat by Pulse Oximetry (%) 98 11/29/16 21:00 Constitutional: Yes: No Distress, Calm HENT: Yes: Other (still with draining wound from the left eyelid,swelling decreasing of the face) Cardiovascular: Yes: Regular Rate and Rhythm Respiratory: Yes: Regular, CTA Bilaterally Gastrointestinal: Yes: Normal Bowel Sounds, Soft Musculoskeletal: Yes: WNL Extremities: Yes: WNL Neurological: Yes: Alert, Oriented Psychiatric: Yes: Alert, Oriented Labs: CBC, BMP 11/30/16 08:00 11/30/16 08:00 INR, PTT INR 1.34 (0.82-1.09) H 11/28/16 21:50 Assessment/Plan Problems (1) Facial cellulitis Code(s): L03.211 - CELLULITIS OF FACE (2) Alcoholic cirrhosis Code(s): K70.30 - ALCOHOLIC CIRRHOSIS OF LIVER WITHOUT ASCITES (3) Hepatitis C Code(s): B19.20 - UNSPECIFIED VIRAL HEPATITIS C WITHOUT HEPATIC COMA (4) Seizure disorder Code(s): G40.909 - EPILEPSY, UNSP, NOT INTRACTABLE, WITHOUT STATUS EPILEPTICUS (5) CKD (chronic kidney disease) Code(s): N18.9 - CHRONIC KIDNEY DISEASE, UNSPECIFIED drug abuse plan continue current mgmt opthalm note noted close monitoring rest as per primary cx result noted
--- NOTE | 2016-11-30 17:04 | CONSULT ---
Consult Consult Specialty:: Nephrology Reason for Consultation:: CKD with acute component - History of Present Illness Chief Complaint: pain and swelling around eyes History of Present Illness: Pt is a 61 year old male with pmhx of CKD, HTN, Hep C, polysubstance abuse, and pancreatitis who presents to the ER with left eye swelling and redness. He complained of malaise and chills at the time. He was found to have elevated creatinine and I was called to evaluate him. He has history of CKD and follows with me in the office. He has missed his last few visits. He denies dysuria or hematuria. His renal function improved with fluids through the hospital course. He feels that the facial cellulitis is improving. He still used nsaids. 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 Gastrointestinal: Yes: Esophageal Varices Hepatobiliary: Yes: Cirrhosis, Hepatitis C Renal/: Yes: Renal Inusuff - Alcohol/Substance Use Hx Alcohol Use: No History of Substance Use: reports: Cocaine - Smoking History Smoking history: Current some day smoker Have you smoked in the past 12 months: Yes Aproximately how many cigarettes per day: 3 If you are a former smoker, when did you quit?: 30 years ago Home Medications - Allergies Allergies/Adverse Reactions: Allergies Allergy/AdvReac Type Severity Reaction Status Date / Time Penicillins Allergy Verified 11/28/16 19:08 aspirin AdvReac Intermediate Verified 11/28/16 19:08 - Home Medications Home Medications: Ambulatory Orders Folic Acid 1 mg PO 11/29/16 Levetiracetam [Keppra -] 500 mg PO BID 11/29/16 Lisinopril 10 mg PO 11/29/16 Naproxen [Naprosyn -] 500 mg PO BID 11/29/16 Ropinirole HCl 0.25 mg PO 11/29/16 Spironolactone [Aldactone] 50 mg PO BID 11/29/16 Tamsulosin HCl [Flomax] 0.4 mg PO DAILY 11/29/16 Vit B Comp/C/FA/Iron/Vit E [Vitamin B Complex Tablet] 1 each PO 11/29/16 Family Disease History - Family Disease History Family History: Denies Review of Systems - Review of Systems Constitutional: reports: No Symptoms Eyes: reports: Eye Pain, Other (facial cellulitis) Neck: reports: No Symptoms Cardiovascular: reports: No Symptoms Respiratory: reports: No Symptoms Gastrointestinal: reports: No Symptoms Genitourinary: reports: No Symptoms Musculoskeletal: reports: No Symptoms Integumentary: reports: No Symptoms Neurological: reports: No Symptoms Endocrine: reports: No Symptoms Hematology/Lymphatic: reports: No Symptoms Physical Exam Vital Signs: Vital Signs Temperature 98.9 F 11/30/16 10:00 Pulse Rate 78 11/30/16 10:00 Respiratory Rate 18 11/30/16 10:00 Blood Pressure 109/66 11/30/16 10:00 O2 Sat by Pulse Oximetry (%) 98 11/30/16 09:00 Constitutional: Yes: Calm Eyes: Yes: Other (facial cellulitis) Neck: Yes: Supple Cardiovascular: Yes: S1, S2 Gastrointestinal: Yes: Soft Renal/: Yes: WNL Musculoskeletal: Yes: WNL Edema: No Neurological: Yes: Oriented Psychiatric: Yes: Oriented Labs: CBC, BMP 11/30/16 08:00 11/30/16 08:00 Laboratory Tests 09/11/13 09/12/13 09/15/13 06:00 08:14 06:00 WBC Hgb Sodium Potassium Chloride Carbon Dioxide Anion Gap BUN Creatinine 1.6 H 1.4 H 1.2 Creat Clearance w eGFR Random Glucose Lactic Acid Total Bilirubin AST Creatine Kinase Cocaine Screen HIV 1&2 Antibody Screen HIV P24 Antigen 07/25/15 07/25/15 07/27/15 17:43 22:00 07:15 WBC Hgb Sodium Potassium Chloride Carbon Dioxide Anion Gap BUN Creatinine 1.7 H D 1.7 H 1.7 H Creat Clearance w eGFR Random Glucose Lactic Acid Total Bilirubin AST Creatine Kinase Cocaine Screen HIV 1&2 Antibody Screen HIV P24 Antigen 11/28/16 11/28/16 11/29/16 21:50 21:50 06:30 WBC 42.7 H* D Hgb Sodium Potassium Chloride Carbon Dioxide Anion Gap BUN Creatinine 2.4 H D Creat Clearance w eGFR Random Glucose Lactic Acid Total Bilirubin AST Creatine Kinase Cocaine Screen Positive HIV 1&2 Antibody Screen HIV P24 Antigen 11/29/16 11/29/16 11/29/16 06:38 13:50 13:50 WBC 37.0 H* Hgb 11.4 L Sodium Potassium Chloride Carbon Dioxide Anion Gap BUN Creatinine 2.2 H 2.0 H Creat Clearance w eGFR Random Glucose Lactic Acid Total Bilirubin AST Creatine Kinase Cocaine Screen HIV 1&2 Antibody Screen HIV P24 Antigen 11/29/16 11/29/16 11/29/16 13:50 13:50 17:10 WBC Hgb Sodium Potassium Chloride Carbon Dioxide Anion Gap BUN Creatinine Creat Clearance w eGFR Random Glucose Lactic Acid 2.383 H* 1.966 Total Bilirubin AST Creatine Kinase Cocaine Screen HIV 1&2 Antibody Screen Negative HIV P24 Antigen Negative 11/30/16 11/30/16 11/30/16 08:00 08:00 08:00 WBC 23.2 H D Hgb 11.0 L Sodium 143 Potassium 4.4 Chloride 111 H Carbon Dioxide 20 L Anion Gap 12 BUN 28 H Creatinine 1.8 H Creat Clearance w eGFR 38.42 Random Glucose 73 L D Lactic Acid Total Bilirubin 1.3 H D AST 128 H Creatine Kinase 442 H D Cocaine Screen HIV 1&2 Antibody Screen HIV P24 Antigen 11/30/16 08:00 WBC Hgb Sodium Potassium Chloride Carbon Dioxide Anion Gap BUN Creatinine Creat Clearance w eGFR Random Glucose Lactic Acid 1.187 Total Bilirubin AST Creatine Kinase Cocaine Screen HIV 1&2 Antibody Screen HIV P24 Antigen Imaging - Results Ultrasound: Report Reviewed (morphologically normal kidneys) Problem List - Problems (1) Facial cellulitis Code(s): L03.211 - CELLULITIS OF FACE (2) Alcoholic cirrhosis Code(s): K70.30 - ALCOHOLIC CIRRHOSIS OF LIVER WITHOUT ASCITES (3) Hepatitis C Code(s): B19.20 - UNSPECIFIED VIRAL HEPATITIS C WITHOUT HEPATIC COMA (4) Seizure disorder Code(s): G40.909 - EPILEPSY, UNSP, NOT INTRACTABLE, WITHOUT STATUS EPILEPTICUS (5) CKD (chronic kidney disease) Code(s): N18.9 - CHRONIC KIDNEY DISEASE, UNSPECIFIED Assessment/Plan Current Medications Generic Name Dose Route Start Last Admin Trade Name Freq PRN Reason Stop Dose Admin Acetaminophen 650 mg 11/29/16 00:59 11/30/16 22:25 Tylenol - PO 650 mg Q12H PRN Administration FEVER OR PAIN Benzocaine/Menthol 1 each 11/30/16 21:23 Cepacol Lozenge - MM PRN PRN SORE THROAT Guaifenesin 10 ml 11/30/16 21:22 11/30/16 21:53 Robitussin - PO 10 ml Q4H PRN Administration COUGH Heparin Sodium (Porcine) 5,000 unit 11/29/16 22:00 11/30/16 21:56 Heparin - SQ Not Given TID PIERO Clindamycin Phosphate 50 mls @ 100 mls/hr 11/29/16 06:00 11/30/16 17:53 Cleocin 600 Mg Premix Ivpb - IVPB 100 mls/hr Q8H-IV PIERO Administration Meropenem 1 gm/ Dextrose 100 mls @ 100 mls/hr 11/29/16 09:00 11/30/16 21:54 IVPB 100 mls/hr Q6H-IV PIERO Administration Protocol Sodium Chloride 1,000 mls @ 100 mls/hr 11/29/16 11:11 11/30/16 21:56 Normal Saline - IV 100 mls/hr ASDIR PIERO Administration Levetiracetam 500 mg 11/29/16 12:45 11/30/16 21:57 Keppra - PO 500 mg BID PIERO Administration Nadolol 20 mg 11/30/16 10:00 11/30/16 09:14 Corgard - PO 20 mg DAILY PIERO Administration Pantoprazole Sodium 40 mg 11/29/16 14:15 11/30/16 09:15 Protonix - PO 40 mg DAILY PIERO Administration Tamsulosin HCl 0.4 mg 11/29/16 14:00 11/30/16 09:14 Flomax - PO 0.4 mg DAILY@0830 PIERO Administration Tobramycin Sulfate 1 drop 11/29/16 14:00 11/30/16 21:58 Tobrex Ophthalmic Solution - OD 1 drop Q4HWA PIERO Administration Tobramycin/Dexamethasone 1 applic 11/29/16 22:00 11/30/16 21:58 Tobradex Ophthalmic Ointment - OS 1 applic HS PIERO Administration Impression 1. CKD with acute component 2. Hep C 3. liver cirrhosis 4. facial cellulitis 5. epilepsy 6. substance abuse Plan - renal function is improvuing - will obtain office records to check baseline creatinine - cand change fluids to 1/2ns and decrease rate - lactic acid is improved - cont abx per ID - will follow Dr Williamson
--- NOTE | 2016-11-30 21:30 | HOSP ---
[id number] slightly low BP, systolic in 80s Subjective: pt reports his cough has gotten worse since arrival to hospital, now keeping him awake at night. He states that he normally keeps it under control with halls cough drops. Denies acute SOB. "Just a lot of mucous." General: Yes: Chills Pulmonary: Yes: Cough. No: Pleuritic Chest Pain Cardiovascular: No: Chest Pain, Palpitations, Orthopnea, Light Headedness Neurological: No: Weakness Physical Examination Vital Signs: Vital Signs Temperature 98.3 F 11/30/16 19:55 Pulse Rate 64 11/30/16 19:55 Respiratory Rate 18 11/30/16 19:55 Blood Pressure 127/55 11/30/16 19:55 O2 Sat by Pulse Oximetry (%) 98 11/30/16 09:00 Constitutional: Yes: Well Nourished, No Distress, Calm Cardiovascular: Yes: Regular Rate and Rhythm, S1, S2 Respiratory: Yes: CTA Bilaterally Gastrointestinal: Yes: Normal Bowel Sounds, Soft. No: Tenderness Labs: CBC, BMP 11/30/16 08:00 11/30/16 08:00 Hospitalist Encounter Assessment: cough - start robitussin, cepacol - if persistent or becomes hypoxic, obtain CXR Hypotension (relative) - isolated finding of SBP in 80s, asymptomatic - on IVF, cont same, repeat BP in 1-2 hours. Addendum: 00:30 Repeat SBP in 80s, 250 cc bolus given. BP remains same, asymptomatic. Will defer further bolus and observe.
[2016-11-30] MEDS: guaiFENesin 200 MG/10 ML 10 ML UNIT-DOSE CUPS PO PRN (21:53)
[2016-11-30] MEDS: TOBRAMYCIN/DEXAMETHASONE OPHTH. OINTMENT 1 TUBE OS SCH (21:58)
[2016-11-30] MEDS ORDERED: SODIUM CHLORIDE 0.45% 1,000 ML IV SCH (22:45)
[2016-12-01] MEDS ORDERED: PT OWN MED DRAWER 7, Y5N ONE ×2 (01:49→14:52)
[2016-12-01] MEDS: CLINDAMYCIN 600MG PREMIX IVPB 50 ML IVPB SCH ×3 (02:01→18:06)
[2016-12-01] MEDS: MEROPENEM 1 GM in DEXTROSE 5%-WATER - 100 ML IVPB SCH ×4 (03:53→21:55)
[2016-12-01] MEDS: guaiFENesin 200 MG/10 ML 10 ML UNIT-DOSE CUPS PO PRN (04:08)
[2016-12-01] MEDS ORDERED: SODIUM CHLORIDE 250 ML IV ONE (04:30)
[2016-12-01] MEDS: HEPARIN NA (PORCINE) 5,000 UNITS/ML 1ML VIAL SQ SCH ×3 (06:27→21:55)
[2016-12-01] MEDS: TOBRAMYCIN 0.3% OPHTH SOLN 5 ML BOTTLE OD SCH ×5 (06:30→22:01)
[2016-12-01 08:09] LABS: BASOPHIL 0.6 % (0-2.0); EOSINOPHIL 2.3 % (0-4.5); MCH 28.2 pg (25.7-33.7); MCHC 32.9 g/dl (32.0-35.9); MEAN CELL VOLUME 85.6 fl (80-96); MEAN PLT VOLUME 9.4 fl (7.5-11.1); NEUTROPHILS 73.1 % (42.8-82.8); PLATELET COUNT 93 K/MM3 (134-434); RDW 17.2 % (11.9-15.9)
[2016-12-01 08:58] LABS: ALBUMIN 1.7 g/dl (3.4-5.0); CALCIUM 7.4 mg/dL (8.5-10.1); COCKROFT - GAULT 34.44; CREATININE 1.9 mg/dL (0.7-1.3)
[2016-12-01 09:00] LABS: BILIRUBIN,TOTAL 0.9 mg/dL (0.2-1.0); TOT PROT 6.2 g/dl (6.4-8.2)
[2016-12-01] MEDS: TAMSULOSIN HCL 0.4 MG CAP.ER.24H (FP) PO SCH (09:08)
[2016-12-01 09:22] LABS: URINE APPEARANCE CLEAR; URINE BILIRUBIN NEGATIVE (NEGATIVE); URINE BLOOD NEGATIVE (NEGATIVE); URINE COLOR LTYELLOW; URINE GLUCOSE (UA) NEGATIVE (NEGATIVE); URINE KETONE TRACE (NEGATIVE); URINE NITRITE NEGATIVE (NEGATIVE); URINE PROTEIN NEGATIVE (NEGATIVE); URINE UROBILINOGEN NEGATIVE E.U./dl (0.2-1.0)
[2016-12-01] MEDS: PANTOPRAZOLE 40 MG TABLET (FP) PO SCH (09:52)
[2016-12-01] MEDS: levETIRAcetam 500 MG TABLET (FP) PO SCH ×2 (09:52→21:55)
[2016-12-01] MEDS: NADOLOL 20 MG TABLET (FP) PO SCH (09:53)
[2016-12-01 09:55] LABS: URINE LEUK ESTERASE TRACE (NEGATIVE)
[2016-12-01] MEDS: BENZOCAINE/MENTH/CETYLPYRD CL 1 EACH LOZENGE MM PRN ×2 (09:56→18:10)
--- NOTE | 2016-12-01 11:12 | PN ---
Physical Exam: SUBJECTIVE: Patient seen and examined. His face is itching him. He said he tried cocain on his gums last tuesday, but doesn't remember getting bit by any bugs. Events: - Relative hypotension, no fluids given - AM Hypotension, however asymptomatic OBJECTIVE: Vital Signs Period Temp Pulse Resp BP Sys/Eisenberg Pulse Ox Last 24 Hr 98.3 F-98.8 F 64-76 18-18 85-127/51-58 98 PE Neuro: alert, awake, cn 2-12intact HEENT: facial cellulitis, erythema to forehead, over right orbital, dried skin to edges on cheeks, R supraorbital swelling, L supraorbital eye with pus, no draining + tenderness, no visual filed deficit Pulm: CTAB, + dry cough CV: s1 s2 rrr no mrg Abd: s nt nd +bs CBCD WBC 14.0 K/mm3 (4.0-10.0) H D 12/01/16 07:03 RBC 3.95 M/mm3 (4.00-5.60) L 12/01/16 07:03 Hgb 11.1 GM/dL (11.7-16.9) L 12/01/16 07:03 Hct 33.8 % (35.4-49) L 12/01/16 07:03 MCV 85.6 fl (80-96) 12/01/16 07:03 MCHC 32.9 g/dl (32.0-35.9) 12/01/16 07:03 RDW 17.2 % (11.9-15.9) H 12/01/16 07:03 Plt Count 93 K/MM3 (134-434) L 12/01/16 07:03 MPV 9.4 fl (7.5-11.1) 12/01/16 07:03 CMP Sodium 141 mmol/L (136-145) 12/01/16 07:03 Potassium 4.5 mmol/L (3.5-5.1) 12/01/16 07:03 Chloride 113 mmol/L (98-107) H 12/01/16 07:03 Carbon Dioxide 19 mmol/L (21-32) L 12/01/16 07:03 Anion Gap 9 (8-16) 12/01/16 07:03 BUN 28 mg/dL (7-18) H 12/01/16 07:03 Creatinine 1.9 mg/dL (0.7-1.3) H 12/01/16 07:03 Creat Clearance w eGFR 36.10 (>60) 12/01/16 07:03 Calcium 7.4 mg/dL (8.5-10.1) L 12/01/16 07:03 Total Bilirubin 0.9 mg/dL (0.2-1.0) D 12/01/16 07:03 AST 126 U/L (15-37) H 12/01/16 07:03 ALT 51 U/L (12-78) 12/01/16 07:03 Alkaline Phosphatase 146 U/L (45-117) H D 12/01/16 07:03 Total Protein 6.2 g/dl (6.4-8.2) L 12/01/16 07:03 Albumin 1.7 g/dl (3.4-5.0) L 12/01/16 07:03 11/30/16 08:00 Lactic Acid 1.187 Current Medications Generic Name Dose Route Start Last Admin Trade Name Freq PRN Reason Stop Dose Admin Acetaminophen 650 mg 11/29/16 00:59 11/30/16 22:25 Tylenol - PO 650 mg Q12H PRN Administration FEVER OR PAIN Benzocaine/Menthol 1 each 11/30/16 21:23 12/01/16 09:56 Cepacol Lozenge - MM 1 each PRN PRN Administration SORE THROAT Guaifenesin 10 ml 11/30/16 21:22 12/01/16 04:08 Robitussin - PO 10 ml Q4H PRN Administration COUGH Heparin Sodium (Porcine) 5,000 unit 11/29/16 22:00 12/01/16 14:59 Heparin - SQ 5,000 unit TID PIERO Administration Clindamycin Phosphate 50 mls @ 100 mls/hr 11/29/16 06:00 12/01/16 09:52 Cleocin 600 Mg Premix Ivpb - IVPB 100 mls/hr Q8H-IV PIERO Administration Meropenem 1 gm/ Dextrose 100 mls @ 100 mls/hr 11/29/16 09:00 12/01/16 14:57 IVPB 100 mls/hr Q6H-IV PIERO Administration Protocol Sodium Chloride 1,000 mls @ 40 mls/hr 12/01/16 13:28 12/01/16 14:58 1/2 Normal Saline IV Not Given ASDIR PIERO Levetiracetam 500 mg 11/29/16 12:45 12/01/16 09:52 Keppra - PO 500 mg BID PIERO Administration Pantoprazole Sodium 40 mg 11/29/16 14:15 12/01/16 09:52 Protonix - PO 40 mg DAILY PIERO Administration Tamsulosin HCl 0.4 mg 11/29/16 14:00 12/01/16 09:08 Flomax - PO 0.4 mg DAILY@0830 PIERO Administration Tobramycin Sulfate 1 drop 11/29/16 14:00 12/01/16 14:57 Tobrex Ophthalmic Solution - OD 1 drop Q4HWA PIERO Administration Tobramycin/Dexamethasone 1 applic 11/29/16 22:00 11/30/16 21:58 Tobradex Ophthalmic Ointment - OS 1 applic HS PIERO Administration Microbiology 11/29/16 11:40 Wound Culture - Preliminary Eyelid - Left Beta Hem Streptococcus Group F 11/28/16 21:50 Blood Culture - Preliminary Blood - Peripheral Venous NO GROWTH OBTAINED AFTER 48 HOURS, INCUBATION TO CONTINUE FOR 3 DAYS. 11/28/16 21:50 Blood Culture - Preliminary Blood - Peripheral Venous NO GROWTH OBTAINED AFTER 48 HOURS, INCUBATION TO CONTINUE FOR 3 DAYS. 11/29/16 04:00 Urine Culture - Preliminary Urine - Urine Clean Catch Group D Strep Or Entero Coccus Assessment: 60 year old male with Hepatitis C, cirrhosis with varices, hx of GI bleed, CKD, encephalopathy, pancreatitis, HTN, seizure disorder, falls, pancreatitis and polysubstance abuse (+cocaine) admitted with facial erythema and swelling. Plan: 1. Sepsis d/t mod facial cellulitis - Leukocytosis improving - Wound cx pre shelby beta strep - No visual compromise per optho noted - Continue meropenem (day 3) - Continue clindamycin (day 4) - Continue Tobramycin drops 2. SILVANA on CKD - Cr improving - Decrease fluids 1/2 NS 40cc/hr - Hold Spironoloctone/LEEANN 3. Liver cirrhosis with varices - Hold Nadolol 4. Seizure - Keppra 500mg BID 5. UTI - Awaiting speciation - UA +1LE 6. Substance abuse - Counseled on abstatining 7. Hypotension - Hold BB Visit type - Emergency Visit Emergency Visit: Yes ED Registration Date: 11/29/16 Care time: The patient presented to the Emergency Department on the above date and was hospitalized for further evaluation of their emergent condition. - New Patient This patient is new to me today: Yes Date on this admission: 12/01/16 - Critical Care Critical Care patient: No
--- NOTE | 2016-12-01 12:31 | PN ---
Progress Note, Physician History of Present Illness: more improvement eyelid better drainage minimal erythema less - Current Medication List Current Medications: Active Medications Acetaminophen (Tylenol -) 650 mg PO Q12H PRN PRN Reason: FEVER OR PAIN Last Admin: 11/30/16 22:25 Dose: 650 mg Benzocaine/Menthol (Cepacol Lozenge -) 1 each MM PRN PRN PRN Reason: SORE THROAT Last Admin: 12/01/16 09:56 Dose: 1 each Guaifenesin (Robitussin -) 10 ml PO Q4H PRN PRN Reason: COUGH Last Admin: 12/01/16 04:08 Dose: 10 ml Heparin Sodium (Porcine) (Heparin -) 5,000 unit SQ TID PIERO Last Admin: 12/01/16 06:27 Dose: Not Given Clindamycin Phosphate (Cleocin 600 Mg Premix Ivpb -) 50 mls @ 100 mls/hr IVPB Q8H-IV PIERO Last Admin: 12/01/16 09:52 Dose: 100 mls/hr Meropenem 1 gm/ Dextrose 100 mls @ 100 mls/hr IVPB Q6H-IV PIERO PRN Reason: Protocol Last Admin: 12/01/16 09:52 Dose: 100 mls/hr Sodium Chloride (1/2 Normal Saline) 1,000 mls @ 75 mls/hr IV ASDIR [facility] Last Admin: 12/01/16 02:04 Dose: 75 mls/hr Levetiracetam (Keppra -) 500 mg PO BID [facility] Last Admin: 12/01/16 09:52 Dose: 500 mg Pantoprazole Sodium (Protonix -) 40 mg PO DAILY [facility] Last Admin: 12/01/16 09:52 Dose: 40 mg Tamsulosin HCl (Flomax -) 0.4 mg PO DAILY@0830 [facility] Last Admin: 12/01/16 09:08 Dose: 0.4 mg Tobramycin Sulfate (Tobrex Ophthalmic Solution -) 1 drop OD Q4HWA [facility] Last Admin: 12/01/16 09:55 Dose: 1 drop Tobramycin/Dexamethasone (Tobradex Ophthalmic Ointment -) 1 applic OS HS [facility] Last Admin: 11/30/16 21:58 Dose: 1 applic - Objective Vital Signs: Vital Signs Temperature 98.6 F 12/01/16 06:00 Pulse Rate 67 12/01/16 06:00 Respiratory Rate 18 12/01/16 06:00 Blood Pressure 91/51 12/01/16 06:00 O2 Sat by Pulse Oximetry (%) 98 11/30/16 21:00 Constitutional: Yes: No Distress, Calm Eyes: Yes: Other (left eyelid improving) HENT: Yes: Other (facial cellulitits much better) Cardiovascular: Yes: Regular Rate and Rhythm Respiratory: Yes: Regular, CTA Bilaterally Gastrointestinal: Yes: Normal Bowel Sounds, Soft Musculoskeletal: Yes: WNL Extremities: Yes: WNL Integumentary: Yes: Erythema (improving) Wound/Incision: Yes: Draining Neurological: Yes: Alert, Oriented Psychiatric: Yes: Alert, Oriented Labs: CBC, BMP 12/01/16 07:03 12/01/16 07:03 INR, PTT INR 1.34 (0.82-1.09) H 11/28/16 21:50 Assessment/Plan Problems (1) Facial cellulitis Code(s): L03.211 - CELLULITIS OF FACE (2) Alcoholic cirrhosis Code(s): K70.30 - ALCOHOLIC CIRRHOSIS OF LIVER WITHOUT ASCITES (3) Hepatitis C Code(s): B19.20 - UNSPECIFIED VIRAL HEPATITIS C WITHOUT HEPATIC COMA (4) Seizure disorder Code(s): G40.909 - EPILEPSY, UNSP, NOT INTRACTABLE, WITHOUT STATUS EPILEPTICUS (5) CKD (chronic kidney disease) Code(s): N18.9 - CHRONIC KIDNEY DISEASE, UNSPECIFIED drug abuse plan continue current mgmt opthalm note noted close monitoring rest as per primary patient improving
[2016-12-01] MEDS ORDERED: SODIUM CHLORIDE 0.45% 1,000 ML IV SCH (13:28)
--- NOTE | 2016-12-01 13:28 | PN ---
Progress Note, Physician History of Present Illness: Pt seen and examined at bedside. He is awake and appears comfortable. - Current Medication List Current Medications: Active Medications Acetaminophen (Tylenol -) 650 mg PO Q12H PRN PRN Reason: FEVER OR PAIN Last Admin: 11/30/16 22:25 Dose: 650 mg Benzocaine/Menthol (Cepacol Lozenge -) 1 each MM PRN PRN PRN Reason: SORE THROAT Last Admin: 12/01/16 09:56 Dose: 1 each Guaifenesin (Robitussin -) 10 ml PO Q4H PRN PRN Reason: COUGH Last Admin: 12/01/16 04:08 Dose: 10 ml Heparin Sodium (Porcine) (Heparin -) 5,000 unit SQ TID [facility] Last Admin: 12/01/16 06:27 Dose: Not Given Clindamycin Phosphate (Cleocin 600 Mg Premix Ivpb -) 50 mls @ 100 mls/hr IVPB Q8H-IV PIERO Last Admin: 12/01/16 09:52 Dose: 100 mls/hr Meropenem 1 gm/ Dextrose 100 mls @ 100 mls/hr IVPB Q6H-IV PIERO PRN Reason: Protocol Last Admin: 12/01/16 09:52 Dose: 100 mls/hr Sodium Chloride (1/2 Normal Saline) 1,000 mls @ 75 mls/hr IV ASDIR [facility] Last Admin: 12/01/16 02:04 Dose: 75 mls/hr Levetiracetam (Keppra -) 500 mg PO BID [facility] Last Admin: 12/01/16 09:52 Dose: 500 mg Pantoprazole Sodium (Protonix -) 40 mg PO DAILY [facility] Last Admin: 12/01/16 09:52 Dose: 40 mg Tamsulosin HCl (Flomax -) 0.4 mg PO DAILY@0830 [facility] Last Admin: 12/01/16 09:08 Dose: 0.4 mg Tobramycin Sulfate (Tobrex Ophthalmic Solution -) 1 drop OD Q4HWA [facility] Last Admin: 12/01/16 09:55 Dose: 1 drop Tobramycin/Dexamethasone (Tobradex Ophthalmic Ointment -) 1 applic OS HS [facility] Last Admin: 11/30/16 21:58 Dose: 1 applic - Objective Vital Signs: Vital Signs Temperature 98.6 F 12/01/16 06:00 Pulse Rate 67 12/01/16 06:00 Respiratory Rate 18 12/01/16 06:00 Blood Pressure 91/51 12/01/16 06:00 O2 Sat by Pulse Oximetry (%) 98 11/30/16 21:00 Constitutional: Yes: Calm Eyes: Yes: Other (facila cellulitis) Cardiovascular: Yes: S1, S2 Respiratory: Yes: CTA Bilaterally Gastrointestinal: Yes: Soft Genitourinary: Yes: WNL Musculoskeletal: Yes: WNL Edema: No Neurological: Yes: Oriented Psychiatric: Yes: Oriented Labs: CBC, BMP 12/01/16 07:03 12/01/16 07:03 INR, PTT INR 1.34 (0.82-1.09) H 11/28/16 21:50 Problem List - Problems (1) Facial cellulitis Code(s): L03.211 - CELLULITIS OF FACE (2) Alcoholic cirrhosis Code(s): K70.30 - ALCOHOLIC CIRRHOSIS OF LIVER WITHOUT ASCITES (3) Hepatitis C Code(s): B19.20 - UNSPECIFIED VIRAL HEPATITIS C WITHOUT HEPATIC COMA (4) Seizure disorder Code(s): G40.909 - EPILEPSY, UNSP, NOT INTRACTABLE, WITHOUT STATUS EPILEPTICUS (5) CKD (chronic kidney disease) Code(s): N18.9 - CHRONIC KIDNEY DISEASE, UNSPECIFIED Assessment/Plan Current Medications Generic Name Dose Route Start Last Admin Trade Name Freq PRN Reason Stop Dose Admin Acetaminophen 650 mg 11/29/16 00:59 11/30/16 22:25 Tylenol - PO 650 mg Q12H PRN Administration FEVER OR PAIN Benzocaine/Menthol 1 each 11/30/16 21:23 12/01/16 09:56 Cepacol Lozenge - MM 1 each PRN PRN Administration SORE THROAT Guaifenesin 10 ml 11/30/16 21:22 12/01/16 04:08 Robitussin - PO 10 ml Q4H PRN Administration COUGH Heparin Sodium (Porcine) 5,000 unit 11/29/16 22:00 12/01/16 06:27 Heparin - SQ Not Given TID PIERO Clindamycin Phosphate 50 mls @ 100 mls/hr 11/29/16 06:00 12/01/16 09:52 Cleocin 600 Mg Premix Ivpb - IVPB 100 mls/hr Q8H-IV PIERO Administration Meropenem 1 gm/ Dextrose 100 mls @ 100 mls/hr 11/29/16 09:00 12/01/16 09:52 IVPB 100 mls/hr Q6H-IV PIERO Administration Protocol Sodium Chloride 1,000 mls @ 75 mls/hr 11/30/16 22:45 12/01/16 02:04 1/2 Normal Saline IV 75 mls/hr ASDIR PIERO Administration Levetiracetam 500 mg 11/29/16 12:45 12/01/16 09:52 Keppra - PO 500 mg BID PIERO Administration Pantoprazole Sodium 40 mg 11/29/16 14:15 12/01/16 09:52 Protonix - PO 40 mg DAILY PIERO Administration Tamsulosin HCl 0.4 mg 11/29/16 14:00 12/01/16 09:08 Flomax - PO 0.4 mg DAILY@0830 PIERO Administration Tobramycin Sulfate 1 drop 11/29/16 14:00 12/01/16 09:55 Tobrex Ophthalmic Solution - OD 1 drop Q4HWA PIERO Administration Tobramycin/Dexamethasone 1 applic 11/29/16 22:00 11/30/16 21:58 Tobradex Ophthalmic Ointment - OS 1 applic HS PIERO Administration Impression 1. CKD with acute component 2. Hep C 3. liver cirrhosis 4. facial cellulitis 5. epilepsy 6. substance abuse Plan - will decrease rate of fluids - repeat labs in am - herb counselor about drug use, cocaine - cont abx per ID - will see pt office - will follow Dr Williamson
[2016-12-01] MEDS: TOBRAMYCIN/DEXAMETHASONE OPHTH. OINTMENT 1 TUBE OS SCH (22:00)
[2016-12-01] MEDS: rOPINIRole HCL 0.25 MG TABLET PO SCH (22:08)
[2016-12-02] MEDS: guaiFENesin 200 MG/10 ML 10 ML UNIT-DOSE CUPS PO PRN ×3 (00:04→18:27)
[2016-12-02] MEDS: CLINDAMYCIN 600MG PREMIX IVPB 50 ML IVPB SCH ×3 (01:33→18:26)
[2016-12-02] MEDS: MEROPENEM 1 GM in DEXTROSE 5%-WATER - 100 ML IVPB SCH ×4 (02:31→21:29)
--- NOTE | 2016-12-02 04:25 | HOSP ---
Addendum entered and electronically signed by Kg Husain RES 12/02/16 04: 55: Pt said he is not allergic to Aspirin, it just cause heartburn and GI discomfort. Original Note: Physical Examination Vital Signs: Vital Signs Temperature 98.2 F 12/01/16 18:00 Pulse Rate 53 L 12/01/16 18:00 Respiratory Rate 20 12/01/16 21:00 Blood Pressure 103/53 12/01/16 18:00 O2 Sat by Pulse Oximetry (%) 100 12/01/16 21:00 Constitutional: Yes: Anxious Eyes: Yes: Other (periorbital swelling left worse than right) Cardiovascular: Yes: Regular Rate and Rhythm, S1, S2 Respiratory: Yes: Regular, CTA Bilaterally Gastrointestinal: Yes: Normal Bowel Sounds, Soft Musculoskeletal: Yes: Other (chest wall tenderness) Edema: No Peripheral Pulses WNL: Yes Integumentary: Yes: Erythema (facial) Neurological: Yes: Alert, Oriented ...Motor Strength: WNL Psychiatric: Yes: Alert, Oriented Labs: CBC, BMP 12/01/16 07:03 12/01/16 07:03 Hospitalist Encounter Assessment: was called to assess a 60 yo m with pmh Hep C/Cirrhosis, CKD III, hepatitis encephalopathy, GI bleed from varices, pancreatitis, htn, seizure disorder, pancreatitis, polysubstance abuse, chronic Low Back Pain who is being treated for sepsis from facial cellulitis who is now complaining of chest pain. The Chest pain is located on left chest, 7/10, sharp, intermittent, lasting less than 5mn, associated with coughing, not associated with position, no worsening factor or alleviating factor, no radiation, no diaphoresis, no feeling of impending doom. Pt said he had been having that chest pain for weeks. Pt has a h /o heart burn and acid reflux. On physical exam pt complained of chest wall tenderness in left chest in area of chest pain. Pt had recent echo which showed normal LV size, thickness, function and grade 1 diastolic dysfunction. recent EKg show SR with PVC and Qwaves in V1, V2, V3 (septal infarct, no change from 2014) Impression Atypical chest Pain, more likely pleuretic vs musculoskeletal, r/o GERD, ACS Plan Stat EKG Cardiac Profile CXR Stat Aspirin 324 mg po once Maalox PO once Visit type - Emergency Visit Emergency Visit: Yes ED Registration Date: 11/29/16 Care time: The patient presented to the Emergency Department on the above date and was hospitalized for further evaluation of their emergent condition. - New Patient This patient is new to me today: Yes Date on this admission: 12/02/16 - Critical Care Critical Care patient: No
[2016-12-02] MEDS ORDERED: ASPIRIN 81 MG CHEWABLE TABLETS PO ONE (04:33)
[2016-12-02] MEDS ORDERED: MAG HYDROX/AL HYDROX/SIMETH 30 ML UNIT-DOSE CUP PO ONE (04:34)
[2016-12-02] MEDS: ACETAMINOPHEN 325 MG TABLET (FP) PO PRN ×2 (04:46→21:31)
[2016-12-02 04:47] LABS: MCH 28.1 pg (25.7-33.7); MCHC 33.3 g/dl (32.0-35.9); MEAN CELL VOLUME 84.4 fl (80-96); MEAN PLT VOLUME 9.4 fl (7.5-11.1); PLATELET COUNT 107 K/MM3 (134-434); RDW 16.6 % (11.9-15.9)
[2016-12-02 05:19] LABS: ALBUMIN 1.8 g/dl (3.4-5.0); BILIRUBIN,TOTAL 0.8 mg/dL (0.2-1.0); CALCIUM 7.3 mg/dL (8.5-10.1); COCKROFT - GAULT 38.5; CREATININE 1.7 mg/dL (0.7-1.3); TOT PROT 6.6 g/dl (6.4-8.2)
[2016-12-02 05:28] LABS: TROPONIN I < 0.02 ng/ml (0.00-0.05)
[2016-12-02] MEDS: HEPARIN NA (PORCINE) 5,000 UNITS/ML 1ML VIAL SQ SCH ×3 (05:48→21:31)
[2016-12-02] MEDS: TOBRAMYCIN 0.3% OPHTH SOLN 5 ML BOTTLE OD SCH ×5 (05:49→21:40)
[2016-12-02 07:52] LABS: MCH 27.9 pg (25.7-33.7); MCHC 32.6 g/dl (32.0-35.9); MEAN CELL VOLUME 85.8 fl (80-96); MEAN PLT VOLUME 9.9 fl (7.5-11.1); PLATELET COUNT 97 K/MM3 (134-434); RDW 17.1 % (11.9-15.9); WHITE BLOOD COUNT 11.1 K/mm3 (4.0-10.0)
[2016-12-02] MEDS: TAMSULOSIN HCL 0.4 MG CAP.ER.24H (FP) PO SCH (08:16)
[2016-12-02 08:38] LABS: CALCIUM 7.8 mg/dL (8.5-10.1); COCKROFT - GAULT 38.5; CREATININE 1.7 mg/dL (0.7-1.3)
[2016-12-02] MEDS: levETIRAcetam 500 MG TABLET (FP) PO SCH ×2 (10:52→21:30)
[2016-12-02] MEDS: PANTOPRAZOLE 40 MG TABLET (FP) PO SCH (10:52)
[2016-12-02] MEDS: BENZOCAINE/MENTH/CETYLPYRD CL 1 EACH LOZENGE MM PRN ×2 (11:10→18:27)
[2016-12-02 11:13] LABS: PLATELET ESTIMATE DECREASED (NORMAL)
--- NOTE | 2016-12-02 12:41 | EKG ---
Test Reason : Blood Pressure : / mmHG Vent. Rate : 060 BPM Atrial Rate : 060 BPM P-R Int : 162 ms QRS Dur : 088 ms QT Int : 422 ms P-R-T Axes : 069 007 062 degrees QTc Int : 422 ms NORMAL SINUS RHYTHM POSSIBLE LEFT ATRIAL ENLARGEMENT ANTEROSEPTAL INFARCT (CITED ON OR BEFORE 20-OCT-2013) ABNORMAL ECG WHEN COMPARED WITH ECG OF 29-NOV-2016 00:33, PREMATURE VENTRICULAR COMPLEXES ARE NO LONGER PRESENT VENT. RATE HAS DECREASED BY 32 BPM T WAVE INVERSION NOW EVIDENT IN ANTERIOR LEADS Confirmed by LILI MOREJON MD ([id number]) on 12/02/2016 12:40:48 PM Referred By: Confirmed By:LILI MOREJON MD
--- NOTE | 2016-12-02 14:18 | PN ---
Physical Exam: SUBJECTIVE: Patient seen and examined. He c/o of insomnia and left sided chest discomfort overnight, from the persistent coughing. Events: - Chest pain overnight, likely pleuritic - CE negative - EKG negative for acute ischemia, old anteroseptal infarct OBJECTIVE: Vital Signs Period Temp Pulse Resp BP Sys/Eisenberg Pulse Ox Last 24 Hr 98.0 F-98.3 F 53-58 17-20 82-114/46-57 100 PE Neuro: alert, awake, cn 2-12intact HEENT: facial cellulitis, erythema-less, over right orbital skin peeling, dried scabs, L supraorbital eye with pus and dried lesion, swelling improved L eye open Pulm: CTAB, + dry cough CV: s1 s2 rrr no mrg Abd: s nt nd +bs Ext: no le edema, warm CBCD WBC 11.1 K/mm3 (4.0-10.0) H 12/02/16 06:30 RBC 4.01 M/mm3 (4.00-5.60) 12/02/16 06:30 Hgb 11.2 GM/dL (11.7-16.9) L 12/02/16 06:30 Hct 34.4 % (35.4-49) L 12/02/16 06:30 MCV 85.8 fl (80-96) 12/02/16 06:30 MCHC 32.6 g/dl (32.0-35.9) 12/02/16 06:30 RDW 17.1 % (11.9-15.9) H 12/02/16 06:30 Plt Count 97 K/MM3 (134-434) L 12/02/16 06:30 MPV 9.9 fl (7.5-11.1) 12/02/16 06:30 CMP Sodium 139 mmol/L (136-145) 12/02/16 06:30 Potassium 4.3 mmol/L (3.5-5.1) 12/02/16 06:30 Chloride 110 mmol/L (98-107) H 12/02/16 06:30 Carbon Dioxide 21 mmol/L (21-32) 12/02/16 06:30 Anion Gap 8 (8-16) 12/02/16 06:30 BUN 27 mg/dL (7-18) H 12/02/16 06:30 Creatinine 1.7 mg/dL (0.7-1.3) H 12/02/16 06:30 Creat Clearance w eGFR 41.04 (>60) 12/02/16 04:30 Calcium 7.8 mg/dL (8.5-10.1) L 12/02/16 06:30 Total Bilirubin 0.8 mg/dL (0.2-1.0) 12/02/16 04:30 AST 113 U/L (15-37) H 12/02/16 04:30 ALT 50 U/L (12-78) 12/02/16 04:30 Alkaline Phosphatase 183 U/L (45-117) H D 12/02/16 04:30 Total Protein 6.6 g/dl (6.4-8.2) 12/02/16 04:30 Albumin 1.8 g/dl (3.4-5.0) L 12/02/16 04:30 12/02/16 04:30 Creatine Kinase 182 D Creatine Kinase Index 0.7 CK-MB (CK-2) 1.214 Troponin I < 0.02 Active Medications Generic Name Dose Route Start Last Admin Trade Name Freq PRN Reason Stop Dose Admin Acetaminophen 650 mg 11/29/16 00:59 12/02/16 04:46 Tylenol - PO 650 mg Q12H PRN Administration FEVER OR PAIN Benzocaine/Menthol 1 each 11/30/16 21:23 12/02/16 11:10 Cepacol Lozenge - MM 1 each PRN PRN Administration SORE THROAT Guaifenesin 10 ml 11/30/16 21:22 12/02/16 12:11 Robitussin - PO 10 ml Q4H PRN Administration COUGH Guaifenesin 1 tablet 12/02/16 14:15 Mucinex Dm - PO BID [facility] Heparin Sodium (Porcine) 5,000 unit 11/29/16 22:00 12/02/16 05:48 Heparin - SQ 5,000 unit TID [facility] Administration Clindamycin Phosphate 50 mls @ 100 mls/hr 11/29/16 06:00 12/02/16 10:51 Cleocin 600 Mg Premix Ivpb - IVPB 100 mls/hr Q8H-IV [facility] Administration Meropenem 1 gm/ Dextrose 100 mls @ 100 mls/hr 11/29/16 09:00 12/02/16 10:51 IVPB 100 mls/hr Q6H-IV [facility] Administration Protocol Levetiracetam 500 mg 11/29/16 12:45 12/02/16 10:52 Keppra - PO 500 mg BID [facility] Administration Pantoprazole Sodium 40 mg 11/29/16 14:15 12/02/16 10:52 Protonix - PO 40 mg DAILY [facility] Administration Ropinirole HCl 0.25 mg 12/01/16 22:00 12/01/16 22:08 Requip - PO 0.25 mg HS [facility] Administration Tamsulosin HCl 0.4 mg 11/29/16 14:00 12/02/16 08:16 Flomax - PO 0.4 mg DAILY@0830 [facility] Administration Tobramycin Sulfate 1 drop 11/29/16 14:00 12/02/16 10:54 Tobrex Ophthalmic Solution - OD 1 drop Q4HWA [facility] Administration Tobramycin/Dexamethasone 1 applic 11/29/16 22:00 12/01/16 22:00 Tobradex Ophthalmic Ointment - OS 1 applic HS [facility] Administration Microbiology 11/28/16 21:50 Blood Culture - Preliminary Blood - Peripheral Venous NO GROWTH OBTAINED AFTER 72 HOURS, INCUBATION TO CONTINUE FOR 2 DAYS. 11/28/16 21:50 Blood Culture - Preliminary Blood - Peripheral Venous NO GROWTH OBTAINED AFTER 72 HOURS, INCUBATION TO CONTINUE FOR 2 DAYS. 11/29/16 04:00 Urine Culture - Final Urine - Urine Clean Catch Enterococcus Faecalis 11/29/16 11:40 Wound Culture - Final Eyelid - Left Beta Hem Streptococcus Group F Assessment: 60 year old male with Hepatitis C, cirrhosis with varices, hx of GI bleed, CKD, encephalopathy, pancreatitis, HTN, seizure disorder, falls, pancreatitis and polysubstance abuse (+cocaine) admitted with facial erythema and swelling. Plan: 1. Sepsis d/t mod facial cellulitis 2/2 beta strep group F - Sepsis resolved - Cellulitis improving - Continue meropenem (day 4) - Continue clindamycin (day 5) - Continue Tobramycin drops q4WA, HS 2. SILVANA on CKD - Cr stable - Will stop fluids - Hold Spironoloctone/LEEANN 3. Liver cirrhosis with varices - Hold Nadolol 4. Seizure - Keppra 500mg BID 5. Enterococcus Faecalis UTI - Abx as above 6. Substance abuse - Counseled on abstatining 7. Hypotension - BP improving - Likely restart BB tomorrow 8. Musculoskeletal CP d/t persistent dry cough - Start mucinex BID - Incentive spirometry - Tylenol PRN - Avoid NSAIDs/nephrotoxic agents Visit type - Emergency Visit Emergency Visit: Yes ED Registration Date: 11/29/16 Care time: The patient presented to the Emergency Department on the above date and was hospitalized for further evaluation of their emergent condition. - New Patient This patient is new to me today: No - Critical Care Critical Care patient: No
[2016-12-02] MEDS ORDERED: LIDOCAINE 5% TOPICAL PATCH TP ONE ×3 (14:44→18:15)
[2016-12-02] MEDS ORDERED: PT OWN MED DRAWER 7, Y5N ONE ×3 (15:10→16:31)
--- NOTE | 2016-12-02 15:15 | PN ---
Progress Note, Physician History of Present Illness: Pt seen and examined at bedside. He feels that his facial cellulitis is much improved. He denies shortness of breath. - Current Medication List Current Medications: Active Medications Acetaminophen (Tylenol -) 650 mg PO Q4H PRN PRN Reason: FEVER OR PAIN Benzocaine/Menthol (Cepacol Lozenge -) 1 each MM PRN PRN PRN Reason: SORE THROAT Last Admin: 12/02/16 11:10 Dose: 1 each Diphenhydramine HCl (Benadryl -) 25 mg PO HS [facility] Guaifenesin (Robitussin -) 10 ml PO Q4H PRN PRN Reason: COUGH Last Admin: 12/02/16 12:11 Dose: 10 ml Guaifenesin (Mucinex Dm -) 1 tablet PO BID [facility] Heparin Sodium (Porcine) (Heparin -) 5,000 unit SQ TID [facility] Last Admin: 12/02/16 05:48 Dose: 5,000 unit Clindamycin Phosphate (Cleocin 600 Mg Premix Ivpb -) 50 mls @ 100 mls/hr IVPB Q8H-IV [facility] Last Admin: 12/02/16 10:51 Dose: 100 mls/hr Meropenem 1 gm/ Dextrose 100 mls @ 100 mls/hr IVPB Q6H-IV [facility] PRN Reason: Protocol Last Admin: 12/02/16 10:51 Dose: 100 mls/hr Levetiracetam (Keppra -) 500 mg PO BID [facility] Last Admin: 12/02/16 10:52 Dose: 500 mg Lidocaine (Lidoderm Patch -) 1 patch TP ONCE ONE Stop: 12/02/16 14:45 Pantoprazole Sodium (Protonix -) 40 mg PO DAILY [facility] Last Admin: 12/02/16 10:52 Dose: 40 mg Ropinirole HCl (Requip -) 0.25 mg PO HS [facility] Last Admin: 12/01/16 22:08 Dose: 0.25 mg Tamsulosin HCl (Flomax -) 0.4 mg PO DAILY@0830 [facility] Last Admin: 12/02/16 08:16 Dose: 0.4 mg Tobramycin Sulfate (Tobrex Ophthalmic Solution -) 1 drop OD Q4HWA [facility] Last Admin: 12/02/16 10:54 Dose: 1 drop Tobramycin/Dexamethasone (Tobradex Ophthalmic Ointment -) 1 applic OS HS [facility] Last Admin: 12/01/16 22:00 Dose: 1 applic - Objective Vital Signs: Vital Signs Temperature 98.0 F 12/02/16 14:00 Pulse Rate 57 L 12/02/16 14:00 Respiratory Rate 17 12/02/16 14:00 Blood Pressure 82/46 12/02/16 14:00 O2 Sat by Pulse Oximetry (%) 100 12/01/16 21:00 Constitutional: Yes: Calm Eyes: Yes: Conjunctiva Clear HENT: Yes: Atraumatic Neck: Yes: Supple Cardiovascular: Yes: S1, S2 Respiratory: Yes: CTA Bilaterally Gastrointestinal: Yes: Soft Genitourinary: Yes: WNL Musculoskeletal: Yes: WNL Edema: No Neurological: Yes: Oriented Psychiatric: Yes: Oriented Labs: CBC, BMP 12/02/16 06:30 12/02/16 06:30 INR, PTT INR 1.34 (0.82-1.09) H 11/28/16 21:50 Problem List - Problems (1) Facial cellulitis Code(s): L03.211 - CELLULITIS OF FACE (2) Alcoholic cirrhosis Code(s): K70.30 - ALCOHOLIC CIRRHOSIS OF LIVER WITHOUT ASCITES (3) Hepatitis C Code(s): B19.20 - UNSPECIFIED VIRAL HEPATITIS C WITHOUT HEPATIC COMA (4) Seizure disorder Code(s): G40.909 - EPILEPSY, UNSP, NOT INTRACTABLE, WITHOUT STATUS EPILEPTICUS (5) CKD (chronic kidney disease) Code(s): N18.9 - CHRONIC KIDNEY DISEASE, UNSPECIFIED Assessment/Plan Current Medications Generic Name Dose Route Start Last Admin Trade Name Freq PRN Reason Stop Dose Admin Acetaminophen 650 mg 12/02/16 14:43 Tylenol - PO Q4H PRN FEVER OR PAIN Benzocaine/Menthol 1 each 11/30/16 21:23 12/02/16 11:10 Cepacol Lozenge - MM 1 each PRN PRN Administration SORE THROAT Diphenhydramine HCl 25 mg 12/02/16 22:00 Benadryl - PO HS [facility] Guaifenesin 10 ml 11/30/16 21:22 12/02/16 12:11 Robitussin - PO 10 ml Q4H PRN Administration COUGH Guaifenesin 1 tablet 12/02/16 14:15 Mucinex Dm - PO BID [facility] Heparin Sodium (Porcine) 5,000 unit 11/29/16 22:00 12/02/16 05:48 Heparin - SQ 5,000 unit TID [facility] Administration Clindamycin Phosphate 50 mls @ 100 mls/hr 11/29/16 06:00 12/02/16 10:51 Cleocin 600 Mg Premix Ivpb - IVPB 100 mls/hr Q8H-IV [facility] Administration Meropenem 1 gm/ Dextrose 100 mls @ 100 mls/hr 11/29/16 09:00 12/02/16 10:51 IVPB 100 mls/hr Q6H-IV [facility] Administration Protocol Levetiracetam 500 mg 11/29/16 12:45 12/02/16 10:52 Keppra - PO 500 mg BID [facility] Administration Lidocaine 1 patch 12/02/16 14:44 Lidoderm Patch - TP 12/02/16 14:45 ONCE ONE Pantoprazole Sodium 40 mg 11/29/16 14:15 12/02/16 10:52 Protonix - PO 40 mg DAILY [facility] Administration Ropinirole HCl 0.25 mg 12/01/16 22:00 12/01/16 22:08 Requip - PO 0.25 mg HS [facility] Administration Tamsulosin HCl 0.4 mg 11/29/16 14:00 12/02/16 08:16 Flomax - PO 0.4 mg DAILY@0830 [facility] Administration Tobramycin Sulfate 1 drop 11/29/16 14:00 12/02/16 10:54 Tobrex Ophthalmic Solution - OD 1 drop Q4HWA [facility] Administration Tobramycin/Dexamethasone 1 applic 11/29/16 22:00 12/01/16 22:00 Tobradex Ophthalmic Ointment - OS 1 applic HS [facility] Administration Impression 1. CKD with acute component 2. Hep C 3. liver cirrhosis 4. facial cellulitis 5. epilepsy 6. substance abuse Plan - can stop fluids - monitor renal function - will see pt in office - counselled about drug use, cocaine - cont abx per ID - discussed with hospitalist team - will follow Dr Williamson
--- NOTE | 2016-12-02 17:08 | PN ---
Progress Note, Physician History of Present Illness: doing well eye looks much better minimal draiange - Current Medication List Current Medications: Active Medications Acetaminophen (Tylenol -) 650 mg PO Q4H PRN PRN Reason: FEVER OR PAIN Benzocaine/Menthol (Cepacol Lozenge -) 1 each MM PRN PRN PRN Reason: SORE THROAT Last Admin: 12/02/16 11:10 Dose: 1 each Diphenhydramine HCl (Benadryl -) 25 mg PO [facility] Guaifenesin (Robitussin -) 10 ml PO Q4H PRN PRN Reason: COUGH Last Admin: 12/02/16 12:11 Dose: 10 ml Guaifenesin (Mucinex Dm -) 1 tablet PO BID [facility] Heparin Sodium (Porcine) (Heparin -) 5,000 unit SQ TID [facility] Last Admin: 12/02/16 15:40 Dose: 5,000 unit Clindamycin Phosphate (Cleocin 600 Mg Premix Ivpb -) 50 mls @ 100 mls/hr IVPB Q8H-IV [facility] Last Admin: 12/02/16 10:51 Dose: 100 mls/hr Meropenem 1 gm/ Dextrose 100 mls @ 100 mls/hr IVPB Q6H-IV [facility] PRN Reason: Protocol Last Admin: 12/02/16 15:40 Dose: 100 mls/hr Levetiracetam (Keppra -) 500 mg PO BID [facility] Last Admin: 12/02/16 10:52 Dose: 500 mg Pantoprazole Sodium (Protonix -) 40 mg PO DAILY [facility] Last Admin: 12/02/16 10:52 Dose: 40 mg Ropinirole HCl (Requip -) 0.25 mg PO [facility] Last Admin: 12/01/16 22:08 Dose: 0.25 mg Tamsulosin HCl (Flomax -) 0.4 mg PO DAILY@0830 [facility] Last Admin: 12/02/16 08:16 Dose: 0.4 mg Tobramycin Sulfate (Tobrex Ophthalmic Solution -) 1 drop OD Q4HWA [facility] Last Admin: 12/02/16 15:41 Dose: 1 drop Tobramycin/Dexamethasone (Tobradex Ophthalmic Ointment -) 1 applic OS [facility] Last Admin: 12/01/16 22:00 Dose: 1 applic - Objective Vital Signs: Vital Signs Temperature 98.0 F 12/02/16 14:00 Pulse Rate 57 L 12/02/16 14:00 Respiratory Rate 17 12/02/16 14:00 Blood Pressure 82/46 12/02/16 14:00 O2 Sat by Pulse Oximetry (%) 97 12/02/16 09:00 Constitutional: Yes: No Distress, Calm Cardiovascular: Yes: Regular Rate and Rhythm Respiratory: Yes: Regular, CTA Bilaterally Gastrointestinal: Yes: Normal Bowel Sounds, Soft Musculoskeletal: Yes: WNL Extremities: Yes: WNL Integumentary: Yes: Erythema (of the eye much better) Wound/Incision: Yes: Other (im) Neurological: Yes: Alert, Oriented Psychiatric: Yes: Alert Labs: CBC, BMP 12/02/16 06:30 12/02/16 06:30 INR, PTT INR 1.34 (0.82-1.09) H 11/28/16 21:50 Assessment/Plan Problems (1) Facial cellulitis Code(s): L03.211 - CELLULITIS OF FACE (2) Alcoholic cirrhosis Code(s): K70.30 - ALCOHOLIC CIRRHOSIS OF LIVER WITHOUT ASCITES (3) Hepatitis C Code(s): B19.20 - UNSPECIFIED VIRAL HEPATITIS C WITHOUT HEPATIC COMA (4) Seizure disorder Code(s): G40.909 - EPILEPSY, UNSP, NOT INTRACTABLE, WITHOUT STATUS EPILEPTICUS (5) CKD (chronic kidney disease) Code(s): N18.9 - CHRONIC KIDNEY DISEASE, UNSPECIFIED drug abuse plan continue current mgmt improving close monitoring rest as per primary patient improving
[2016-12-02] MEDS: guaiFENesin/D-METHORPHAN HB 1 EACH TAB.ER.12H PO SCH ×2 (18:26→21:30)
[2016-12-02] MEDS: diphenhydrAMINE HCL 25 MG CAPSULE (FP) PO SCH (21:30)
[2016-12-02] MEDS: rOPINIRole HCL 0.25 MG TABLET PO SCH (21:37)
[2016-12-02] MEDS: TOBRAMYCIN/DEXAMETHASONE OPHTH. OINTMENT 1 TUBE OS SCH (21:41)
[2016-12-03] MEDS: CLINDAMYCIN 600MG PREMIX IVPB 50 ML IVPB SCH ×3 (02:00→17:12)
[2016-12-03] MEDS: MEROPENEM 1 GM in DEXTROSE 5%-WATER - 100 ML IVPB SCH ×4 (02:56→21:15)
[2016-12-03] MEDS: HEPARIN NA (PORCINE) 5,000 UNITS/ML 1ML VIAL SQ SCH ×3 (06:20→21:15)
[2016-12-03] MEDS: TOBRAMYCIN 0.3% OPHTH SOLN 5 ML BOTTLE OD SCH ×5 (06:21→21:20)
[2016-12-03 07:34] LABS: MCH 28.9 pg (25.7-33.7); MCHC 34.1 g/dl (32.0-35.9); MEAN CELL VOLUME 84.8 fl (80-96); MEAN PLT VOLUME 9.8 fl (7.5-11.1); PLATELET COUNT 116 K/MM3 (134-434); RDW 16.8 % (11.9-15.9); WHITE BLOOD COUNT 8.7 K/mm3 (4.0-10.0)
[2016-12-03 08:47] LABS: PLATELET ESTIMATE DECREASED (NORMAL)
[2016-12-03 08:48] LABS: CALCIUM 7.7 mg/dL (8.5-10.1); COCKROFT - GAULT 38.5; CREATININE 1.7 mg/dL (0.7-1.3)
--- NOTE | 2016-12-03 10:12 | PN ---
Progress Note, Physician History of Present Illness: much better now eye nearly open still some swelling left with induration and erythema drainage minimal - Current Medication List Current Medications: Active Medications Acetaminophen (Tylenol -) 650 mg PO Q4H PRN PRN Reason: FEVER OR PAIN Last Admin: 12/02/16 21:31 Dose: 650 mg Benzocaine/Menthol (Cepacol Lozenge -) 1 each MM PRN PRN PRN Reason: SORE THROAT Last Admin: 12/02/16 18:27 Dose: 1 each Diphenhydramine HCl (Benadryl -) 25 mg PO HS [facility] Last Admin: 12/02/16 21:30 Dose: 25 mg Guaifenesin (Robitussin -) 10 ml PO Q4H PRN PRN Reason: COUGH Last Admin: 12/02/16 18:27 Dose: 10 ml Guaifenesin (Mucinex Dm -) 1 tablet PO BID [facility] Last Admin: 12/02/16 21:30 Dose: 1 tablet Heparin Sodium (Porcine) (Heparin -) 5,000 unit SQ TID [facility] Last Admin: 12/03/16 06:20 Dose: 5,000 unit Clindamycin Phosphate (Cleocin 600 Mg Premix Ivpb -) 50 mls @ 100 mls/hr IVPB Q8H-IV [facility] Last Admin: 12/03/16 02:00 Dose: 100 mls/hr Meropenem 1 gm/ Dextrose 100 mls @ 100 mls/hr IVPB Q6H-IV [facility] PRN Reason: Protocol Last Admin: 12/03/16 02:56 Dose: 100 mls/hr Levetiracetam (Keppra -) 500 mg PO BID [facility] Last Admin: 12/02/16 21:30 Dose: 500 mg Pantoprazole Sodium (Protonix -) 40 mg PO DAILY [facility] Last Admin: 12/02/16 10:52 Dose: 40 mg Ropinirole HCl (Requip -) 0.25 mg PO HS [facility] Last Admin: 12/02/16 21:37 Dose: 0.25 mg Tamsulosin HCl (Flomax -) 0.4 mg PO DAILY@0830 [facility] Last Admin: 12/02/16 08:16 Dose: 0.4 mg Tobramycin Sulfate (Tobrex Ophthalmic Solution -) 1 drop OD Q4HWA [facility] Last Admin: 12/03/16 06:21 Dose: 1 drop Tobramycin/Dexamethasone (Tobradex Ophthalmic Ointment -) 1 applic OS HS [facility] Last Admin: 12/02/16 21:41 Dose: 1 applic - Objective Vital Signs: Vital Signs Temperature 98.3 F 12/03/16 05:46 Pulse Rate 51 L 12/03/16 05:46 Respiratory Rate 20 12/03/16 05:46 Blood Pressure 108/67 12/03/16 05:46 O2 Sat by Pulse Oximetry (%) 98 12/02/16 21:00 Constitutional: Yes: No Distress, Calm Eyes: Yes: Other (wound healing on the eyelid and swelling less) HENT: Yes: Other (facial cellulitits minimal) Cardiovascular: Yes: Regular Rate and Rhythm Respiratory: Yes: Regular, CTA Bilaterally Gastrointestinal: Yes: Normal Bowel Sounds, Soft Musculoskeletal: Yes: WNL Extremities: Yes: WNL Integumentary: Yes: Erythema (minimal) Wound/Incision: Yes: Clean/Dry Neurological: Yes: Alert, Oriented Psychiatric: Yes: Alert, Oriented Labs: CBC, BMP 12/03/16 06:00 12/03/16 06:00 INR, PTT INR 1.34 (0.82-1.09) H 11/28/16 21:50 Assessment/Plan Problems (1) Facial cellulitis Code(s): L03.211 - CELLULITIS OF FACE (2) Alcoholic cirrhosis Code(s): K70.30 - ALCOHOLIC CIRRHOSIS OF LIVER WITHOUT ASCITES (3) Hepatitis C Code(s): B19.20 - UNSPECIFIED VIRAL HEPATITIS C WITHOUT HEPATIC COMA (4) Seizure disorder Code(s): G40.909 - EPILEPSY, UNSP, NOT INTRACTABLE, WITHOUT STATUS EPILEPTICUS (5) CKD (chronic kidney disease) Code(s): N18.9 - CHRONIC KIDNEY DISEASE, UNSPECIFIED drug abuse uti plan continue current mgmt improving draiange minimal no treatment for uti rest as per primary
[2016-12-03] MEDS ORDERED: PT OWN MED DRAWER 7, Y5N ONE ×3 (10:13→20:48)
[2016-12-03] MEDS: TAMSULOSIN HCL 0.4 MG CAP.ER.24H (FP) PO SCH (10:18)
[2016-12-03] MEDS: ACETAMINOPHEN 325 MG TABLET (FP) PO PRN ×2 (10:18→17:11)
[2016-12-03] MEDS: PANTOPRAZOLE 40 MG TABLET (FP) PO SCH (10:18)
[2016-12-03] MEDS: levETIRAcetam 500 MG TABLET (FP) PO SCH ×2 (10:19→21:15)
[2016-12-03] MEDS: guaiFENesin/D-METHORPHAN HB 1 EACH TAB.ER.12H PO SCH ×2 (10:20→21:16)
--- NOTE | 2016-12-03 15:35 | PN ---
Physical Exam: SUBJECTIVE: Patient seen and examined. He has rectal pain, his chest is still operator batch or continuous and painful when he takes a deep breathing, is sleeping better. OBJECTIVE: Vital Signs Period Temp Pulse Resp BP Sys/Eisenberg Pulse Ox Last 24 Hr 98.2 F-98.6 F 50-56 17-21 100-108/53-67 98-98 PE Neuro: alert, awake, cn 2-12intact HEENT: facial cellulitis, over right orbital with suborbital edema, dried scab L supraorbital eye with pus, swelling improved L eye open Pulm: CTAB, + dry cough- improved CV: s1 s2 rrr no mrg, +substernal tenderness to palpation Abd: s nt nd +bs :no internal hemorrhoids palpated, no external noted, no erythema, no discharge Ext: no le edema, warm Laboratory Results - last 24 hr 11/29/16 12/03/16 12/03/16 17:10 06:00 06:00 WBC 8.7 RBC 4.15 Hgb 12.0 Hct 35.2 L MCV 84.8 MCHC 34.1 RDW 16.8 H Plt Count 116 L MPV 9.8 Neutrophils % 60.0 Lymphocytes % 20.0 D Monocytes % 12.0 H D Eosinophils % 5.0 H Band Neutrophils 1.0 D Reactive Lymphocytes 2 Platelet Estimate Decreased Platelet Comment No clumping noted Sodium 142 Potassium 4.3 Chloride 112 H Carbon Dioxide 22 Anion Gap 8 BUN 26 H Creatinine 1.7 H Random Glucose 88 Calcium 7.7 L Levetiracetam 11.1 Active Medications Generic Name Dose Route Start Last Admin Trade Name Capo PRN Reason Stop Dose Admin Acetaminophen 650 mg 12/02/16 14:43 12/03/16 10:18 Tylenol - PO 650 mg Q4H PRN Administration FEVER OR PAIN Benzocaine/Menthol 1 each 11/30/16 21:23 12/02/16 18:27 Cepacol Lozenge - MM 1 each PRN PRN Administration SORE THROAT Diphenhydramine HCl 25 mg 12/02/16 22:00 12/02/16 21:30 Benadryl - PO 25 mg HS [facility] Administration Guaifenesin 10 ml 11/30/16 21:22 12/02/16 18:27 Robitussin - PO 10 ml Q4H PRN Administration COUGH Guaifenesin 1 tablet 12/02/16 14:15 12/03/16 10:20 Mucinex Dm - PO 1 tablet BID [facility] Administration Heparin Sodium (Porcine) 5,000 unit 11/29/16 22:00 12/03/16 14:41 Heparin - SQ 5,000 unit TID [facility] Administration Clindamycin Phosphate 50 mls @ 100 mls/hr 11/29/16 06:00 12/03/16 10:15 Cleocin 600 Mg Premix Ivpb - IVPB 100 mls/hr Q8H-IV [facility] Administration Meropenem 1 gm/ Dextrose 100 mls @ 100 mls/hr 11/29/16 09:00 12/03/16 14:40 IVPB 100 mls/hr Q6H-IV [facility] Administration Protocol Levetiracetam 500 mg 11/29/16 12:45 12/03/16 10:19 Keppra - PO 500 mg BID [facility] Administration Pantoprazole Sodium 40 mg 11/29/16 14:15 12/03/16 10:18 Protonix - PO 40 mg DAILY [facility] Administration Ropinirole HCl 0.25 mg 12/01/16 22:00 12/02/16 21:37 Requip - PO 0.25 mg HS [facility] Administration Tamsulosin HCl 0.4 mg 11/29/16 14:00 12/03/16 10:18 Flomax - PO 0.4 mg DAILY@0830 [facility] Administration Tobramycin Sulfate 1 drop 11/29/16 14:00 12/03/16 14:41 Tobrex Ophthalmic Solution - OD 1 drop Q4HWA [facility] Administration Tobramycin/Dexamethasone 1 applic 11/29/16 22:00 12/02/16 21:41 Tobradex Ophthalmic Ointment - OS 1 applic HS [facility] Administration Assessment: 60 year old male with Hepatitis C, cirrhosis with varices, hx of GI bleed, CKD, encephalopathy, pancreatitis, HTN, seizure disorder, falls, pancreatitis and polysubstance abuse (+cocaine) admitted with facial erythema and swelling. Plan: 1. Sepsis d/t mod facial cellulitis 2/2 beta strep group F - Sepsis resolved - Cellulitis improving - Continue Meropenem (day 5) - Continue Clindamycin (day 6) - Continue Tobramycin drops q4WA, HS 2. SILVANA on CKD - Cr stable - Hold Spironoloctone/LEEANN 3. Liver cirrhosis with varices - Hold Nadolol, hypotensive 4. Seizure - Keppra 500mg BID 5. Enterococcus Faecalis UTI - Abx as above 6. Substance abuse - Counseled on abstatining 7. Hypotension - Asymptomatic, however will hold meds 8. Musculoskeletal CP d/t persistent dry cough - Mucinex BID - Incentive spirometry - Tylenol PRN - Will give ibuprofen 400mg x1, OK with renal 9. Rectal burning/itching - No bleeding on digital rectal - Start anusol Visit type - Emergency Visit Emergency Visit: Yes ED Registration Date: 11/29/16 Care time: The patient presented to the Emergency Department on the above date and was hospitalized for further evaluation of their emergent condition. - New Patient This patient is new to me today: No - Critical Care Critical Care patient: No
[2016-12-03] MEDS ORDERED: IBUPROFEN 400 MG TABLET (FP) PO ONE (15:39)
[2016-12-03] MEDS: guaiFENesin 200 MG/10 ML 10 ML UNIT-DOSE CUPS PO PRN (17:12)
[2016-12-03] MEDS: HYDROCORTISONE 2.5% TOPICAL CREAM 30 GM TUBE TP SCH (17:52)
--- NOTE | 2016-12-03 19:09 | PN ---
Progress Note, Physician History of Present Illness: Pt seen and examined at bedside. He is awake and alert. He denies shortness of breath. - Current Medication List Current Medications: Active Medications Acetaminophen (Tylenol -) 650 mg PO Q4H PRN PRN Reason: FEVER OR PAIN Last Admin: 12/03/16 17:11 Dose: 650 mg Benzocaine/Menthol (Cepacol Lozenge -) 1 each MM PRN PRN PRN Reason: SORE THROAT Last Admin: 12/02/16 18:27 Dose: 1 each Diphenhydramine HCl (Benadryl -) 25 mg PO HS PIERO Last Admin: 12/02/16 21:30 Dose: 25 mg Guaifenesin (Robitussin -) 10 ml PO Q4H PRN PRN Reason: COUGH Last Admin: 12/03/16 17:12 Dose: 10 ml Guaifenesin (Mucinex Dm -) 1 tablet PO BID REPLACED BY [facility] Last Admin: 12/03/16 10:20 Dose: 1 tablet Heparin Sodium (Porcine) (Heparin -) 5,000 unit SQ TID REPLACED BY [facility] Last Admin: 12/03/16 14:41 Dose: 5,000 unit Hydrocortisone (Anusol 2.5% Hc Cream -) 1 applic TP DAILY REPLACED BY [facility] Last Admin: 12/03/16 17:52 Dose: 1 applic Clindamycin Phosphate (Cleocin 600 Mg Premix Ivpb -) 50 mls @ 100 mls/hr IVPB Q8H-IV [facility]ERO Last Admin: 12/03/16 17:12 Dose: 100 mls/hr Meropenem 1 gm/ Dextrose 100 mls @ 100 mls/hr IVPB Q6H-IV [facility]ERO PRN Reason: Protocol Last Admin: 12/03/16 14:40 Dose: 100 mls/hr Levetiracetam (Keppra -) 500 mg PO BID REPLACED BY [facility] Last Admin: 12/03/16 10:19 Dose: 500 mg Pantoprazole Sodium (Protonix -) 40 mg PO DAILY REPLACED BY [facility] Last Admin: 12/03/16 10:18 Dose: 40 mg Ropinirole HCl (Requip -) 0.25 mg PO HS REPLACED BY [facility] Last Admin: 12/02/16 21:37 Dose: 0.25 mg Tamsulosin HCl (Flomax -) 0.4 mg PO DAILY@0830 REPLACED BY [facility] Last Admin: 12/03/16 10:18 Dose: 0.4 mg Tobramycin Sulfate (Tobrex Ophthalmic Solution -) 1 drop OD Q4HWA REPLACED BY [facility] Last Admin: 12/03/16 17:13 Dose: 1 drop Tobramycin/Dexamethasone (Tobradex Ophthalmic Ointment -) 1 applic OS HS REPLACED BY [facility] Last Admin: 12/02/16 21:41 Dose: 1 applic - Objective Vital Signs: Vital Signs Temperature 98.2 F 12/03/16 14:00 Pulse Rate 50 L 12/03/16 14:00 Respiratory Rate 17 12/03/16 14:00 Blood Pressure 102/66 12/03/16 10:00 O2 Sat by Pulse Oximetry (%) 98 12/03/16 10:00 Constitutional: Yes: Calm Eyes: Yes: Conjunctiva Clear HENT: Yes: Atraumatic Cardiovascular: Yes: S1, S2 Respiratory: Yes: On Nasal O2 Genitourinary: Yes: WNL Musculoskeletal: Yes: WNL Edema: No Neurological: Yes: Oriented Psychiatric: Yes: Oriented Labs: CBC, BMP 12/03/16 06:00 12/03/16 06:00 INR, PTT INR 1.34 (0.82-1.09) H 11/28/16 21:50 Problem List - Problems (1) Facial cellulitis Code(s): L03.211 - CELLULITIS OF FACE (2) Alcoholic cirrhosis Code(s): K70.30 - ALCOHOLIC CIRRHOSIS OF LIVER WITHOUT ASCITES (3) Hepatitis C Code(s): B19.20 - UNSPECIFIED VIRAL HEPATITIS C WITHOUT HEPATIC COMA (4) Seizure disorder Code(s): G40.909 - EPILEPSY, UNSP, NOT INTRACTABLE, WITHOUT STATUS EPILEPTICUS (5) CKD (chronic kidney disease) Code(s): N18.9 - CHRONIC KIDNEY DISEASE, UNSPECIFIED Assessment/Plan Current Medications Generic Name Dose Route Start Last Admin Trade Name Freq PRN Reason Stop Dose Admin Acetaminophen 650 mg 12/02/16 14:43 12/03/16 17:11 Tylenol - PO 650 mg Q4H PRN Administration FEVER OR PAIN Benzocaine/Menthol 1 each 11/30/16 21:23 12/02/16 18:27 Cepacol Lozenge - MM 1 each PRN PRN Administration SORE THROAT Diphenhydramine HCl 25 mg 12/02/16 22:00 12/02/16 21:30 Benadryl - PO 25 mg HS PIERO Administration Guaifenesin 10 ml 11/30/16 21:22 12/03/16 17:12 Robitussin - PO 10 ml Q4H PRN Administration COUGH Guaifenesin 1 tablet 12/02/16 14:15 12/03/16 10:20 Mucinex Dm - PO 1 tablet BID PIERO Administration Heparin Sodium (Porcine) 5,000 unit 11/29/16 22:00 12/03/16 14:41 Heparin - SQ 5,000 unit TID [facility]ERO Administration Hydrocortisone 1 applic 12/03/16 16:30 12/03/16 17:52 Anusol 2.5% Hc Cream - TP 1 applic DAILY [facility]ERO Administration Clindamycin Phosphate 50 mls @ 100 mls/hr 11/29/16 06:00 12/03/16 17:12 Cleocin 600 Mg Premix Ivpb - IVPB 100 mls/hr Q8H-IV PIERO Administration Meropenem 1 gm/ Dextrose 100 mls @ 100 mls/hr 11/29/16 09:00 12/03/16 14:40 IVPB 100 mls/hr Q6H-IV PIERO Administration Protocol Levetiracetam 500 mg 11/29/16 12:45 12/03/16 10:19 Keppra - PO 500 mg BID PIERO Administration Pantoprazole Sodium 40 mg 11/29/16 14:15 12/03/16 10:18 Protonix - PO 40 mg DAILY PIERO Administration Ropinirole HCl 0.25 mg 12/01/16 22:00 12/02/16 21:37 Requip - PO 0.25 mg HS PIERO Administration Tamsulosin HCl 0.4 mg 11/29/16 14:00 12/03/16 10:18 Flomax - PO 0.4 mg DAILY@0830 [facility] Administration Tobramycin Sulfate 1 drop 11/29/16 14:00 12/03/16 17:13 Tobrex Ophthalmic Solution - OD 1 drop Q4HWA PIERO Administration Tobramycin/Dexamethasone 1 applic 11/29/16 22:00 12/02/16 21:41 Tobradex Ophthalmic Ointment - OS 1 applic HS PIERO Administration Impression 1. CKD with acute component 2. Hep C 3. liver cirrhosis 4. facial cellulitis 5. epilepsy 6. substance abuse Plan - renal function is stable - will give one dose of ibuprofen for chest wall discomfort, discusses with pt and hospitalist - repeat labs in am - will see pt in office - counselled about drug use, cocaine - cont abx per ID - will follow Dr Williamson
[2016-12-03] MEDS: diphenhydrAMINE HCL 25 MG CAPSULE (FP) PO SCH (21:15)
[2016-12-03] MEDS: rOPINIRole HCL 0.25 MG TABLET PO SCH (21:17)
[2016-12-03] MEDS: TOBRAMYCIN/DEXAMETHASONE OPHTH. OINTMENT 1 TUBE OS SCH (21:18)
[2016-12-04] MEDS: CLINDAMYCIN 600MG PREMIX IVPB 50 ML IVPB SCH ×3 (02:20→18:05)
[2016-12-04] MEDS: MEROPENEM 1 GM in DEXTROSE 5%-WATER - 100 ML IVPB SCH ×3 (03:50→15:11)
[2016-12-04] MEDS: HEPARIN NA (PORCINE) 5,000 UNITS/ML 1ML VIAL SQ SCH ×3 (05:55→21:52)
[2016-12-04] MEDS: TOBRAMYCIN 0.3% OPHTH SOLN 5 ML BOTTLE OD SCH ×5 (05:55→21:55)
[2016-12-04] MEDS: TAMSULOSIN HCL 0.4 MG CAP.ER.24H (FP) PO SCH (08:04)
[2016-12-04 09:16] LABS: MCH 28.2 pg (25.7-33.7); MEAN CELL VOLUME 85.5 fl (80-96); MEAN PLT VOLUME 9.5 fl (7.5-11.1); PLATELET COUNT 136 K/MM3 (134-434); RDW 16.9 % (11.9-15.9); WHITE BLOOD COUNT 7.6 K/mm3 (4.0-10.0)
[2016-12-04 09:27] LABS: CALCIUM 7.4 mg/dL (8.5-10.1); COCKROFT - GAULT 38.5; CREATININE 1.7 mg/dL (0.7-1.3)
--- NOTE | 2016-12-04 09:46 | PN ---
Physical Exam: SUBJECTIVE: Patient seen and examined. His chest discomfort has improved, still gets it when he moves his arm or coughs. He said the Benadryl isn't helping him sleep. Also reports watery stool/incontinence OBJECTIVE: Vital Signs Period Temp Pulse Resp BP Sys/Eisenberg Pulse Ox Last 24 Hr 97.7 F-98.4 F 50-60 17-20 93-132/63-90 98-98 PE Neuro: alert, awake, cn 2-12intact HEENT: facial cellulitis- improved, L supra orbital scab, b/l infraorbital edema - greatly improved Pulm: CTAB CV: s1 s2 rrr no mrg, mild substernal tenderness w/ movement Abd: s nt nd +bs Ext: no le edema, warm Laboratory Results - last 24 hr 12/04/16 12/04/16 08:10 08:10 WBC 7.6 RBC 4.03 Hgb 11.4 L Hct 34.5 L MCV 85.5 MCHC 33.0 RDW 16.9 H Plt Count 136 MPV 9.5 Neutrophils % Y Lymphocytes % Y Sodium 140 Potassium 4.2 Chloride 110 H Carbon Dioxide 24 Anion Gap 6 L BUN 24 H Creatinine 1.7 H Random Glucose 83 Calcium 7.4 L Active Medications Generic Name Dose Route Start Last Admin Trade Name Freq PRN Reason Stop Dose Admin Acetaminophen 650 mg 12/02/16 14:43 12/03/16 17:11 Tylenol - PO 650 mg Q4H PRN Administration FEVER OR PAIN Benzocaine/Menthol 1 each 11/30/16 21:23 12/02/16 18:27 Cepacol Lozenge - MM 1 each PRN PRN Administration SORE THROAT Diphenhydramine HCl 25 mg 12/02/16 22:00 12/03/16 21:15 Benadryl - PO 25 mg HS PIERO Administration Guaifenesin 10 ml 11/30/16 21:22 12/03/16 17:12 Robitussin - PO 10 ml Q4H PRN Administration COUGH Guaifenesin 1 tablet 12/02/16 14:15 12/03/16 21:16 Mucinex Dm - PO 1 tablet BID PIERO Administration Heparin Sodium (Porcine) 5,000 unit 11/29/16 22:00 12/04/16 05:55 Heparin - SQ 5,000 unit TID PIERO Administration Hydrocortisone 1 applic 12/03/16 16:30 12/03/16 17:52 Anusol 2.5% Hc Cream - TP 1 applic DAILY [facility] Administration Clindamycin Phosphate 50 mls @ 100 mls/hr 11/29/16 06:00 12/04/16 02:20 Cleocin 600 Mg Premix Ivpb - IVPB 100 mls/hr Q8H-IV PIERO Administration Meropenem 1 gm/ Dextrose 100 mls @ 100 mls/hr 11/29/16 09:00 12/04/16 03:50 IVPB 100 mls/hr Q6H-IV PIERO Administration Protocol Levetiracetam 500 mg 11/29/16 12:45 12/03/16 21:15 Keppra - PO 500 mg BID PIERO Administration Pantoprazole Sodium 40 mg 11/29/16 14:15 12/03/16 10:18 Protonix - PO 40 mg DAILY PIERO Administration Ropinirole HCl 0.25 mg 12/01/16 22:00 12/03/16 21:17 Requip - PO 0.25 mg HS PIERO Administration Tamsulosin HCl 0.4 mg 11/29/16 14:00 12/04/16 08:04 Flomax - PO 0.4 mg DAILY@0830 [facility] Administration Tobramycin Sulfate 1 drop 11/29/16 14:00 12/04/16 05:55 Tobrex Ophthalmic Solution - OD 1 drop Q4HWA [facility]ERO Administration Tobramycin/Dexamethasone 1 applic 11/29/16 22:00 12/03/16 21:18 Tobradex Ophthalmic Ointment - OS 1 applic HS PIERO Administration Assessment: 60 year old male with Hepatitis C, cirrhosis with varices, hx of GI bleed, CKD, encephalopathy, pancreatitis, HTN, seizure disorder, falls, pancreatitis and polysubstance abuse (+cocaine) admitted with facial erythema and swelling. Plan: 1. Sepsis d/t mod facial cellulitis 2/2 beta strep group F - Sepsis resolved - Continue Meropenem (day 6) - Continue Clindamycin (day 7) - Continue Tobramycin drops q4WA, HS 2. Diarrhea - Send C diff - Deescalate abx per ID 3. SILVANA on CKD - Cr stable - Hold Spironoloctone/LEEANN 4. Liver cirrhosis with varices - Resume Nadolol today 5. Seizure - Keppra 500mg BID 6. Enterococcus Faecalis UTI - Abx as above 7. Hypotension - Improved - Will resume nadolol 20mg daily 8. Musculoskeletal CP d/t persistent dry cough - Improved - Mucinex BID, will DC tomorrow 9. Rectal Itching - Possibly from increased diarrhea - Cont anusol 10. Substance abuse - Counseled on abstatining Visit type - Emergency Visit Emergency Visit: Yes ED Registration Date: 11/29/16 Care time: The patient presented to the Emergency Department on the above date and was hospitalized for further evaluation of their emergent condition. - New Patient This patient is new to me today: No - Critical Care Critical Care patient: No
[2016-12-04] MEDS ORDERED: PT OWN MED DRAWER 7, Y5N ONE ×4 (09:48→15:09)
[2016-12-04] MEDS: PANTOPRAZOLE 40 MG TABLET (FP) PO SCH (09:57)
[2016-12-04] MEDS: levETIRAcetam 500 MG TABLET (FP) PO SCH ×2 (09:57→21:51)
[2016-12-04] MEDS: guaiFENesin/D-METHORPHAN HB 1 EACH TAB.ER.12H PO SCH ×2 (09:58→21:52)
[2016-12-04] MEDS: BENZOCAINE/MENTH/CETYLPYRD CL 1 EACH LOZENGE MM PRN (09:59)
[2016-12-04] MEDS: HYDROCORTISONE 2.5% TOPICAL CREAM 30 GM TUBE TP SCH (09:59)
[2016-12-04] MEDS: NADOLOL 20 MG TABLET (FP) PO SCH (12:25)
--- NOTE | 2016-12-04 12:54 | PN ---
Progress Note, Physician History of Present Illness: Pt seen and examined at bedside. He has loose stools. - Current Medication List Current Medications: Active Medications Acetaminophen (Tylenol -) 650 mg PO Q4H PRN PRN Reason: FEVER OR PAIN Last Admin: 12/03/16 17:11 Dose: 650 mg Benzocaine/Menthol (Cepacol Lozenge -) 1 each MM PRN PRN PRN Reason: SORE THROAT Last Admin: 12/04/16 09:59 Dose: 1 each Diphenhydramine HCl (Benadryl -) 25 mg PO HS PIERO Last Admin: 12/03/16 21:15 Dose: 25 mg Guaifenesin (Robitussin -) 10 ml PO Q4H PRN PRN Reason: COUGH Last Admin: 12/03/16 17:12 Dose: 10 ml Guaifenesin (Mucinex Dm -) 1 tablet PO BID [facility]ERO Last Admin: 12/04/16 09:58 Dose: 1 tablet Heparin Sodium (Porcine) (Heparin -) 5,000 unit SQ TID [facility]ERO Last Admin: 12/04/16 05:55 Dose: 5,000 unit Hydrocortisone (Anusol 2.5% Hc Cream -) 1 applic TP DAILY [facility] Last Admin: 12/04/16 09:59 Dose: 1 applic Clindamycin Phosphate (Cleocin 600 Mg Premix Ivpb -) 50 mls @ 100 mls/hr IVPB Q8H-IV PIERO Last Admin: 12/04/16 09:57 Dose: 100 mls/hr Meropenem 1 gm/ Dextrose 100 mls @ 100 mls/hr IVPB Q6H-IV PIERO PRN Reason: Protocol Last Admin: 12/04/16 09:57 Dose: 100 mls/hr Levetiracetam (Keppra -) 500 mg PO BID [facility]ERO Last Admin: 12/04/16 09:57 Dose: 500 mg Nadolol (Corgard -) 20 mg PO DAILY [facility] Last Admin: 12/04/16 12:25 Dose: 20 mg Pantoprazole Sodium (Protonix -) 40 mg PO DAILY [facility] Last Admin: 12/04/16 09:57 Dose: 40 mg Ropinirole HCl (Requip -) 0.25 mg PO HS [facility] Last Admin: 12/03/16 21:17 Dose: 0.25 mg Tamsulosin HCl (Flomax -) 0.4 mg PO DAILY@0830 [facility] Last Admin: 12/04/16 08:04 Dose: 0.4 mg Tobramycin Sulfate (Tobrex Ophthalmic Solution -) 1 drop OD Q4HWA [facility] Last Admin: 12/04/16 09:58 Dose: 1 drop Tobramycin/Dexamethasone (Tobradex Ophthalmic Ointment -) 1 applic OS HS [facility] Last Admin: 12/03/16 21:18 Dose: 1 applic - Objective Vital Signs: Vital Signs Temperature 97.7 F 12/04/16 05:43 Pulse Rate 60 12/04/16 05:43 Respiratory Rate 20 12/04/16 05:43 Blood Pressure 132/90 12/04/16 05:43 O2 Sat by Pulse Oximetry (%) 98 12/03/16 21:00 Constitutional: Yes: Calm Cardiovascular: Yes: S1, S2 Respiratory: Yes: CTA Bilaterally Gastrointestinal: Yes: Soft Genitourinary: Yes: WNL Musculoskeletal: Yes: WNL Edema: No Neurological: Yes: Oriented Psychiatric: Yes: Oriented Labs: CBC, BMP 12/04/16 08:10 12/04/16 08:10 INR, PTT INR 1.34 (0.82-1.09) H 11/28/16 21:50 Problem List - Problems (1) Facial cellulitis Code(s): L03.211 - CELLULITIS OF FACE (2) Alcoholic cirrhosis Code(s): K70.30 - ALCOHOLIC CIRRHOSIS OF LIVER WITHOUT ASCITES (3) Hepatitis C Code(s): B19.20 - UNSPECIFIED VIRAL HEPATITIS C WITHOUT HEPATIC COMA (4) Seizure disorder Code(s): G40.909 - EPILEPSY, UNSP, NOT INTRACTABLE, WITHOUT STATUS EPILEPTICUS (5) CKD (chronic kidney disease) Code(s): N18.9 - CHRONIC KIDNEY DISEASE, UNSPECIFIED Assessment/Plan Current Medications Generic Name Dose Route Start Last Admin Trade Name Freq PRN Reason Stop Dose Admin Acetaminophen 650 mg 12/02/16 14:43 12/03/16 17:11 Tylenol - PO 650 mg Q4H PRN Administration FEVER OR PAIN Benzocaine/Menthol 1 each 11/30/16 21:23 12/04/16 09:59 Cepacol Lozenge - MM 1 each PRN PRN Administration SORE THROAT Diphenhydramine HCl 25 mg 12/02/16 22:00 12/03/16 21:15 Benadryl - PO 25 mg HS PIERO Administration Guaifenesin 10 ml 11/30/16 21:22 12/03/16 17:12 Robitussin - PO 10 ml Q4H PRN Administration COUGH Guaifenesin 1 tablet 12/02/16 14:15 12/04/16 09:58 Mucinex Dm - PO 1 tablet BID PIERO Administration Heparin Sodium (Porcine) 5,000 unit 11/29/16 22:00 12/04/16 05:55 Heparin - SQ 5,000 unit TID PIERO Administration Hydrocortisone 1 applic 12/03/16 16:30 12/04/16 09:59 Anusol 2.5% Hc Cream - TP 1 applic DAILY [facility] Administration Clindamycin Phosphate 50 mls @ 100 mls/hr 11/29/16 06:00 12/04/16 09:57 Cleocin 600 Mg Premix Ivpb - IVPB 100 mls/hr Q8H-IV PIERO Administration Meropenem 1 gm/ Dextrose 100 mls @ 100 mls/hr 11/29/16 09:00 12/04/16 09:57 IVPB 100 mls/hr Q6H-IV PIERO Administration Protocol Levetiracetam 500 mg 11/29/16 12:45 12/04/16 09:57 Keppra - PO 500 mg BID PIERO Administration Nadolol 20 mg 12/04/16 10:00 12/04/16 12:25 Corgard - PO 20 mg DAILY [facility]ERO Administration Pantoprazole Sodium 40 mg 11/29/16 14:15 12/04/16 09:57 Protonix - PO 40 mg DAILY PIERO Administration Ropinirole HCl 0.25 mg 12/01/16 22:00 12/03/16 21:17 Requip - PO 0.25 mg HS PIERO Administration Tamsulosin HCl 0.4 mg 11/29/16 14:00 12/04/16 08:04 Flomax - PO 0.4 mg DAILY@0830 [facility] Administration Tobramycin Sulfate 1 drop 11/29/16 14:00 12/04/16 09:58 Tobrex Ophthalmic Solution - OD 1 drop Q4HWA [facility] Administration Tobramycin/Dexamethasone 1 applic 11/29/16 22:00 12/03/16 21:18 Tobradex Ophthalmic Ointment - OS 1 applic HS PIERO Administration Impression 1. CKD with acute component 2. Hep C 3. liver cirrhosis 4. facial cellulitis 5. epilepsy 6. substance abuse Plan - will see pt in office - renal function is stable - cont current meds - discussed with hospitalist - counselled about drug use, cocaine - cont abx per ID - will follow PRN Dr Williamson
[2016-12-04 14:31] LABS: METAMYELOCYTE 3 % (0-2)
[2016-12-04 14:32] LABS: PLATELET ESTIMATE ADEQUATE (NORMAL)
--- NOTE | 2016-12-04 18:28 | PN ---
Progress Note, Physician History of Present Illness: much better now minimal swelling now no drainage scab formation over the wound eye nearly completely open - Current Medication List Current Medications: Active Medications Acetaminophen (Tylenol -) 650 mg PO Q4H PRN PRN Reason: FEVER OR PAIN Last Admin: 12/03/16 17:11 Dose: 650 mg Benzocaine/Menthol (Cepacol Lozenge -) 1 each MM PRN PRN PRN Reason: SORE THROAT Last Admin: 12/04/16 09:59 Dose: 1 each Diphenhydramine HCl (Benadryl -) 25 mg PO HS PIERO Last Admin: 12/03/16 21:15 Dose: 25 mg Guaifenesin (Robitussin -) 10 ml PO Q4H PRN PRN Reason: COUGH Last Admin: 12/03/16 17:12 Dose: 10 ml Guaifenesin (Mucinex Dm -) 1 tablet PO BID [facility]ERO Last Admin: 12/04/16 09:58 Dose: 1 tablet Heparin Sodium (Porcine) (Heparin -) 5,000 unit SQ TID [facility]ERO Last Admin: 12/04/16 15:11 Dose: 5,000 unit Hydrocortisone (Anusol 2.5% Hc Cream -) 1 applic TP DAILY [facility] Last Admin: 12/04/16 09:59 Dose: 1 applic Clindamycin Phosphate (Cleocin 600 Mg Premix Ivpb -) 50 mls @ 100 mls/hr IVPB Q8H-IV PIERO Last Admin: 12/04/16 18:05 Dose: 100 mls/hr Meropenem 1 gm/ Dextrose 100 mls @ 100 mls/hr IVPB Q6H-IV PIERO PRN Reason: Protocol Last Admin: 12/04/16 15:11 Dose: 100 mls/hr Levetiracetam (Keppra -) 500 mg PO BID [facility] Last Admin: 12/04/16 09:57 Dose: 500 mg Nadolol (Corgard -) 20 mg PO DAILY [facility] Last Admin: 12/04/16 12:25 Dose: 20 mg Pantoprazole Sodium (Protonix -) 40 mg PO DAILY [facility] Last Admin: 12/04/16 09:57 Dose: 40 mg Ropinirole HCl (Requip -) 0.25 mg PO HS [facility] Last Admin: 12/03/16 21:17 Dose: 0.25 mg Tamsulosin HCl (Flomax -) 0.4 mg PO DAILY@0830 [facility] Last Admin: 12/04/16 08:04 Dose: 0.4 mg Tobramycin Sulfate (Tobrex Ophthalmic Solution -) 1 drop OD Q4HWA [facility] Last Admin: 12/04/16 18:05 Dose: 1 drop Tobramycin/Dexamethasone (Tobradex Ophthalmic Ointment -) 1 applic OS HS [facility] Last Admin: 12/03/16 21:18 Dose: 1 applic - Objective Vital Signs: Vital Signs Temperature 97.5 F L 12/04/16 17:56 Pulse Rate 71 12/04/16 17:56 Respiratory Rate 20 12/04/16 17:56 Blood Pressure 112/62 12/04/16 17:56 O2 Sat by Pulse Oximetry (%) 100 12/04/16 09:00 Constitutional: Yes: No Distress, Calm Eyes: Yes: Other (much better) HENT: Yes: Other (facial cellultits nearly resolved) Cardiovascular: Yes: Regular Rate and Rhythm Respiratory: Yes: Regular, CTA Bilaterally Gastrointestinal: Yes: Normal Bowel Sounds, Soft Musculoskeletal: Yes: WNL Extremities: Yes: WNL Wound/Incision: Yes: Clean/Dry Neurological: Yes: Alert, Oriented Psychiatric: Yes: Alert, Oriented Labs: CBC, BMP 12/04/16 08:10 12/04/16 08:10 INR, PTT INR 1.34 (0.82-1.09) H 11/28/16 21:50 Assessment/Plan Problems (1) Facial cellulitis Code(s): L03.211 - CELLULITIS OF FACE (2) Alcoholic cirrhosis Code(s): K70.30 - ALCOHOLIC CIRRHOSIS OF LIVER WITHOUT ASCITES (3) Hepatitis C Code(s): B19.20 - UNSPECIFIED VIRAL HEPATITIS C WITHOUT HEPATIC COMA (4) Seizure disorder Code(s): G40.909 - EPILEPSY, UNSP, NOT INTRACTABLE, WITHOUT STATUS EPILEPTICUS (5) CKD (chronic kidney disease) Code(s): N18.9 - CHRONIC KIDNEY DISEASE, UNSPECIFIED drug abuse uti plan continue current mgmt improving draiange minimal no treatment for uti rest as per primary might deescalate abx in a day or so depending on the facial cellulitits
[2016-12-04] MEDS: diphenhydrAMINE HCL 25 MG CAPSULE (FP) PO SCH (21:52)
[2016-12-04] MEDS: rOPINIRole HCL 0.25 MG TABLET PO SCH (21:53)
[2016-12-04] MEDS: TOBRAMYCIN/DEXAMETHASONE OPHTH. OINTMENT 1 TUBE OS SCH (21:55)
[2016-12-05] MEDS: CLINDAMYCIN HCL 150 MG CAPSULE (FP) PO SCH ×4 (00:05→17:09)
[2016-12-05] MEDS: ACETAMINOPHEN 325 MG TABLET (FP) PO PRN ×2 (00:13→21:28)
[2016-12-05] MEDS: MEROPENEM 1 GM in DEXTROSE 5%-WATER - 100 ML IVPB SCH ×3 (01:56→17:09)
[2016-12-05] MEDS: HEPARIN NA (PORCINE) 5,000 UNITS/ML 1ML VIAL SQ SCH ×3 (06:23→21:29)
[2016-12-05] MEDS: TOBRAMYCIN 0.3% OPHTH SOLN 5 ML BOTTLE OD SCH ×5 (06:24→21:31)
[2016-12-05] MEDS: LACTOBACILLUS ACIDOPHILUS 1 EACH TAB (FP) PO SCH ×2 (07:52→09:11)
[2016-12-05] MEDS: TAMSULOSIN HCL 0.4 MG CAP.ER.24H (FP) PO SCH (08:09)
[2016-12-05] MEDS ORDERED: PT OWN MED DRAWER 7, Y5N ONE (09:10)
[2016-12-05] MEDS: levETIRAcetam 500 MG TABLET (FP) PO SCH ×2 (09:11→21:28)
[2016-12-05] MEDS: PANTOPRAZOLE 40 MG TABLET (FP) PO SCH (09:11)
[2016-12-05] MEDS: guaiFENesin/D-METHORPHAN HB 1 EACH TAB.ER.12H PO SCH ×2 (09:12→21:30)
[2016-12-05] MEDS: NADOLOL 20 MG TABLET (FP) PO SCH (09:12)
[2016-12-05] MEDS: HYDROCORTISONE 2.5% TOPICAL CREAM 30 GM TUBE TP SCH (09:14)
--- NOTE | 2016-12-05 10:10 | PN ---
Physical Exam: SUBJECTIVE: Patient seen and examined. He says his loose stool is better, he has yet to go this AM. His chest discomfort comes and goes OBJECTIVE: Vital Signs Period Temp Pulse Resp BP Sys/Eisenberg Pulse Ox Last 24 Hr 97.5 F-98 F 62-71 20-20 107-115/57-71 100 PE Neuro: alert, awake, cn 2-12intact HEENT: L supra orbital scab with mild infraorbital edema, R eye mild edema- overall improved Pulm: CTAB CV: s1 s2 rrr no mrg, mild substernal tenderness Abd: s nt nd +bs Ext: no le edema, warm Active Medications Generic Name Dose Route Start Last Admin Trade Name Freq PRN Reason Stop Dose Admin Acetaminophen 650 mg 12/02/16 14:43 12/05/16 00:13 Tylenol - PO 650 mg Q4H PRN Administration FEVER OR PAIN Benzocaine/Menthol 1 each 11/30/16 21:23 12/04/16 09:59 Cepacol Lozenge - MM 1 each PRN PRN Administration SORE THROAT Clindamycin HCl 300 mg 12/05/16 00:00 12/05/16 06:23 Cleocin - PO 300 mg Q6HPO [facility]ERO Administration Diphenhydramine HCl 25 mg 12/02/16 22:00 12/04/16 21:52 Benadryl - PO 25 mg HS PIERO Administration Guaifenesin 10 ml 11/30/16 21:22 12/03/16 17:12 Robitussin - PO 10 ml Q4H PRN Administration COUGH Guaifenesin 1 tablet 12/02/16 14:15 12/05/16 09:12 Mucinex Dm - PO 1 tablet BID PIERO Administration Heparin Sodium (Porcine) 5,000 unit 11/29/16 22:00 12/05/16 06:23 Heparin - SQ 5,000 unit TID [facility]ERO Administration Hydrocortisone 1 applic 12/03/16 16:30 12/05/16 09:14 Anusol 2.5% Hc Cream - TP 1 applic DAILY [facility] Administration Meropenem 1 gm/ Dextrose 100 mls @ 100 mls/hr 12/05/16 02:00 12/05/16 09:48 IVPB 100 mls/hr Q8H-IV PIERO Administration Protocol Lactobacillus Acidophilus 1 tab 12/04/16 18:30 12/05/16 09:11 Bacid - PO 1 tab DAILY [facility]ERO Administration Levetiracetam 500 mg 11/29/16 12:45 12/05/16 09:11 Keppra - PO 500 mg BID PIERO Administration Nadolol 20 mg 12/04/16 10:00 12/05/16 09:12 Corgard - PO 20 mg DAILY [facility] Administration Pantoprazole Sodium 40 mg 11/29/16 14:15 12/05/16 09:11 Protonix - PO 40 mg DAILY [facility]ERO Administration Ropinirole HCl 0.25 mg 12/01/16 22:00 12/04/16 21:53 Requip - PO 0.25 mg HS [facility]ERO Administration Tamsulosin HCl 0.4 mg 11/29/16 14:00 12/05/16 08:09 Flomax - PO 0.4 mg DAILY@0830 [facility] Administration Tobramycin Sulfate 1 drop 11/29/16 14:00 12/05/16 09:13 Tobrex Ophthalmic Solution - OD 1 drop Q4HWA [facility] Administration Tobramycin/Dexamethasone 1 applic 11/29/16 22:00 12/04/16 21:55 Tobradex Ophthalmic Ointment - OS 1 applic HS [facility] Administration Assessment: 60 year old male with Hepatitis C, cirrhosis with varices, hx of GI bleed, CKD, encephalopathy, pancreatitis, HTN, seizure disorder, falls, pancreatitis and polysubstance abuse (+cocaine) admitted with facial erythema and swelling. Plan: 1. Sepsis d/t mod facial cellulitis 2/2 beta strep group F - Sepsis resolved - Decreased Meropenem q8hr (day 7) - Transition to PO Clindamycin 300mg q6 (day 8) - Continue Tobramycin drops q4WA, HS - Abx per ID 2. Diarrhea - C Diff negative 3. SILVANA on CKD - Cr stable - Hold Spironoloctone/LEEANN 4. Liver cirrhosis with varices - Nadolol 20mg daily 5. Seizure - Keppra 500mg BID 6. Enterococcus Faecalis UTI - Abx as above 7. Hypotension - Resolved 8. Musculoskeletal CP d/t persistent dry cough - Resolving - DC mucinex tonight 9. Rectal Itching - Improved - Cont anusol until diarrhea resolved 10. Substance abuse - Counseled on abstatining Visit type - Emergency Visit Emergency Visit: Yes ED Registration Date: 11/29/16 Care time: The patient presented to the Emergency Department on the above date and was hospitalized for further evaluation of their emergent condition. - New Patient This patient is new to me today: No - Critical Care Critical Care patient: No
--- NOTE | 2016-12-05 12:07 | PN ---
Progress Note, Physician History of Present Illness: cellulitits significantly better wound healed patient still c/o of some pain in the face no drainage - Current Medication List Current Medications: Active Medications Acetaminophen (Tylenol -) 650 mg PO Q4H PRN PRN Reason: FEVER OR PAIN Last Admin: 12/05/16 00:13 Dose: 650 mg Benzocaine/Menthol (Cepacol Lozenge -) 1 each MM PRN PRN PRN Reason: SORE THROAT Last Admin: 12/04/16 09:59 Dose: 1 each Clindamycin HCl (Cleocin -) 300 mg PO Q6HPO [facility] Last Admin: 12/05/16 11:34 Dose: 300 mg Diphenhydramine HCl (Benadryl -) 25 mg PO HS [facility] Last Admin: 12/04/16 21:52 Dose: 25 mg Guaifenesin (Robitussin -) 10 ml PO Q4H PRN PRN Reason: COUGH Last Admin: 12/03/16 17:12 Dose: 10 ml Guaifenesin (Mucinex Dm -) 1 tablet PO BID [facility] Stop: 12/05/16 23:59 Last Admin: 12/05/16 09:12 Dose: 1 tablet Heparin Sodium (Porcine) (Heparin -) 5,000 unit SQ TID [facility] Last Admin: 12/05/16 06:23 Dose: 5,000 unit Hydrocortisone (Anusol 2.5% Hc Cream -) 1 applic TP DAILY [facility] Last Admin: 12/05/16 09:14 Dose: 1 applic Meropenem 1 gm/ Dextrose 100 mls @ 100 mls/hr IVPB Q8H-IV [facility] PRN Reason: Protocol Last Admin: 12/05/16 09:48 Dose: 100 mls/hr Lactobacillus Acidophilus (Bacid -) 1 tab PO DAILY [facility] Last Admin: 12/05/16 09:11 Dose: 1 tab Levetiracetam (Keppra -) 500 mg PO BID [facility] Last Admin: 12/05/16 09:11 Dose: 500 mg Nadolol (Corgard -) 20 mg PO DAILY [facility] Last Admin: 12/05/16 09:12 Dose: 20 mg Pantoprazole Sodium (Protonix -) 40 mg PO DAILY [facility] Last Admin: 12/05/16 09:11 Dose: 40 mg Ropinirole HCl (Requip -) 0.25 mg PO HS [facility] Last Admin: 12/04/16 21:53 Dose: 0.25 mg Tamsulosin HCl (Flomax -) 0.4 mg PO DAILY@0830 [facility] Last Admin: 12/05/16 08:09 Dose: 0.4 mg Tobramycin Sulfate (Tobrex Ophthalmic Solution -) 1 drop OD Q4HWA [facility] Last Admin: 12/05/16 09:13 Dose: 1 drop Tobramycin/Dexamethasone (Tobradex Ophthalmic Ointment -) 1 applic OS [facility] Last Admin: 12/04/16 21:55 Dose: 1 applic - Objective Vital Signs: Vital Signs Temperature 97.9 F 12/05/16 10:00 Pulse Rate 56 L 12/05/16 10:00 Respiratory Rate 18 12/05/16 10:00 Blood Pressure 125/58 12/05/16 10:00 O2 Sat by Pulse Oximetry (%) 100 12/04/16 20:30 Constitutional: Yes: No Distress, Calm Eyes: Yes: Other HENT: Yes: Atraumatic Cardiovascular: Yes: Regular Rate and Rhythm Respiratory: Yes: Regular Gastrointestinal: Yes: Normal Bowel Sounds, Soft Musculoskeletal: Yes: WNL Extremities: Yes: WNL Integumentary: Yes: Erythema (resolved) Neurological: Yes: Alert, Oriented Psychiatric: Yes: Alert, Oriented Labs: CBC, BMP 12/04/16 08:10 12/04/16 08:10 INR, PTT INR 1.34 (0.82-1.09) H 11/28/16 21:50 Assessment/Plan Problems (1) Facial cellulitis Code(s): L03.211 - CELLULITIS OF FACE (2) Alcoholic cirrhosis Code(s): K70.30 - ALCOHOLIC CIRRHOSIS OF LIVER WITHOUT ASCITES (3) Hepatitis C Code(s): B19.20 - UNSPECIFIED VIRAL HEPATITIS C WITHOUT HEPATIC COMA (4) Seizure disorder Code(s): G40.909 - EPILEPSY, UNSP, NOT INTRACTABLE, WITHOUT STATUS EPILEPTICUS (5) CKD (chronic kidney disease) Code(s): N18.9 - CHRONIC KIDNEY DISEASE, UNSPECIFIED drug abuse uti plan continue current mgmt improving draiange minimal no treatment for uti rest as per primary will stop iv abx tomorrow
[2016-12-05] MEDS: diphenhydrAMINE HCL 25 MG CAPSULE (FP) PO SCH (21:28)
[2016-12-05] MEDS: TOBRAMYCIN/DEXAMETHASONE OPHTH. OINTMENT 1 TUBE OS SCH (21:32)
[2016-12-05] MEDS: rOPINIRole HCL 0.25 MG TABLET PO SCH (21:32)
[2016-12-06] MEDS: CLINDAMYCIN HCL 150 MG CAPSULE (FP) PO SCH ×5 (00:28→23:34)
[2016-12-06] MEDS: MEROPENEM 1 GM in DEXTROSE 5%-WATER - 100 ML IVPB SCH ×2 (02:46→10:01)
[2016-12-06] MEDS: TOBRAMYCIN 0.3% OPHTH SOLN 5 ML BOTTLE OD SCH ×5 (05:29→21:13)
[2016-12-06] MEDS: HEPARIN NA (PORCINE) 5,000 UNITS/ML 1ML VIAL SQ SCH ×3 (05:32→21:13)
[2016-12-06 08:10] LABS: MCH 28.3 pg (25.7-33.7); MCHC 33.1 g/dl (32.0-35.9); MEAN CELL VOLUME 85.4 fl (80-96); MEAN PLT VOLUME 9.3 fl (7.5-11.1); PLATELET COUNT 165 K/MM3 (134-434); RDW 16.9 % (11.9-15.9); WHITE BLOOD COUNT 7.7 K/mm3 (4.0-10.0)
[2016-12-06] MEDS: TAMSULOSIN HCL 0.4 MG CAP.ER.24H (FP) PO SCH (08:26)
[2016-12-06 08:41] LABS: CALCIUM 7.6 mg/dL (8.5-10.1)
[2016-12-06 08:43] LABS: COCKROFT - GAULT 43.63; CREATININE 1.5 mg/dL (0.7-1.3); MAGNESIUM 1.9 mg/dL (1.8-2.4); PHOSPHOROUS 2.1 mg/dL (2.5-4.9)
[2016-12-06] MEDS ORDERED: PT OWN MED DRAWER 7, Y5N ONE ×2 (09:57→21:12)
[2016-12-06] MEDS: NADOLOL 20 MG TABLET (FP) PO SCH (10:00)
[2016-12-06] MEDS: LACTOBACILLUS ACIDOPHILUS 1 EACH TAB (FP) PO SCH (10:01)
[2016-12-06] MEDS: levETIRAcetam 500 MG TABLET (FP) PO SCH ×2 (10:01→21:13)
[2016-12-06] MEDS: PANTOPRAZOLE 40 MG TABLET (FP) PO SCH (10:01)
[2016-12-06] MEDS: HYDROCORTISONE 2.5% TOPICAL CREAM 30 GM TUBE TP SCH (10:03)
--- NOTE | 2016-12-06 10:46 | PN ---
Physical Exam: SUBJECTIVE: Patient seen and examined. He states that feels much better. Denies chest pain, shortness of breath. Denies dizziness or lightheadness. OBJECTIVE: Facial cellulitis resolved left upper lid with scab which is likely where the infection started States he is still having diarrhea, likely secondary to antibiotics, on Bacid - he is Cdiff negative Physical therapy to ambulate patient Once cleared by ID, can be d/c per ID recommendations Vital Signs Period Temp Pulse Resp BP Sys/Eisenberg Pulse Ox Last 24 Hr 97.7 F-98.0 F 50-69 18-20 86-107/45-70 100 General: Alert and oriented x 3, in on acute distress HEAD: resolved periorbital facial swelling, able to open left eye and right eye without difficulty. small scab over left eye lid likely initial entry point of bacteria trachea midline, no thyromegaly RESPIRATORY: Bilateral lungs clear to auscultation, no cough, no rhonchi - mild/ fine right lower lobe crackles at base HEART- regular rate and rhytym SKIN: facial cellulities resolved GI: soft nontender, no guarding, no rebound, BS+, no rigidity NEURO: alert and oriented x 3 PSYCH: cooperative, no agitation Laboratory Results - last 24 hr 12/06/16 12/06/16 07:10 07:10 WBC 7.7 RBC 3.87 L Hgb 11.0 L Hct 33.1 L MCV 85.4 MCHC 33.1 RDW 16.9 H Plt Count 165 D MPV 9.3 Neutrophils % Y Lymphocytes % Y Sodium 141 Potassium 4.2 Chloride 108 H Carbon Dioxide 23 Anion Gap 10 BUN 20 H Creatinine 1.5 H Random Glucose 75 Calcium 7.6 L Phosphorus 2.1 L Magnesium 1.9 Active Medications Generic Name Dose Route Start Last Admin Trade Name Freq PRN Reason Stop Dose Admin Acetaminophen 650 mg 12/02/16 14:43 12/05/16 21:28 Tylenol - PO 650 mg Q4H PRN Administration FEVER OR PAIN Benzocaine/Menthol 1 each 11/30/16 21:23 12/04/16 09:59 Cepacol Lozenge - MM 1 each PRN PRN Administration SORE THROAT Clindamycin HCl 300 mg 12/05/16 00:00 12/06/16 05:28 Cleocin - PO 300 mg Q6HPO [facility] Administration Diphenhydramine HCl 25 mg 12/02/16 22:00 12/05/16 21:28 Benadryl - PO 25 mg HS [facility] Administration Guaifenesin 10 ml 11/30/16 21:22 12/03/16 17:12 Robitussin - PO 10 ml Q4H PRN Administration COUGH Heparin Sodium (Porcine) 5,000 unit 11/29/16 22:00 12/06/16 05:32 Heparin - SQ Not Given TID [facility] Hydrocortisone 1 applic 12/03/16 16:30 12/06/16 10:03 Anusol 2.5% Hc Cream - TP 1 applic DAILY [facility] Administration Meropenem 1 gm/ Dextrose 100 mls @ 100 mls/hr 12/05/16 02:00 12/06/16 10:01 IVPB 100 mls/hr Q8H-IV [facility] Administration Protocol Lactobacillus Acidophilus 1 tab 12/04/16 18:30 12/06/16 10:01 Bacid - PO 1 tab DAILY [facility] Administration Levetiracetam 500 mg 11/29/16 12:45 12/06/16 10:01 Keppra - PO 500 mg BID [facility] Administration Nadolol 20 mg 12/04/16 10:00 12/06/16 10:00 Corgard - PO Not Given DAILY [facility] Pantoprazole Sodium 40 mg 11/29/16 14:15 12/06/16 10:01 Protonix - PO 40 mg DAILY [facility] Administration Ropinirole HCl 0.25 mg 12/01/16 22:00 12/05/16 21:32 Requip - PO 0.25 mg HS [facility] Administration Tamsulosin HCl 0.4 mg 11/29/16 14:00 12/06/16 08:26 Flomax - PO 0.4 mg DAILY@0830 [facility] Administration Tobramycin Sulfate 1 drop 11/29/16 14:00 12/06/16 10:02 Tobrex Ophthalmic Solution - OD 1 drop Q4HWA [facility] Administration Tobramycin/Dexamethasone 1 applic 11/29/16 22:00 12/05/16 21:32 Tobradex Ophthalmic Ointment - OS 1 applic HS [facility] Administration ASSESSMENT/PLAN: Patient is a 60 year old male with a significant past medical history of Hepatitis C, cirrhosis, CKD III, hep. encephalopathy, GI bleed from varices, pancreatitis, hypertension, seizure disorder, falls, pancreatitis and polysubstance abuse (+cocaine). He presented to the ED on 11/29/2016 with facial erythema and swelling. Patient is a poor historian. As per patient, he woke up about 2 days ago with facial swelling and facial pain. He denies any shortness of breath, fever, chills, nausea or vomiting. He denies any trauma or any recent new medications. He further any recent alcohol or drug use. States last time he drank or did drugs was "last January". On admission, he was found to have the following labs: WBC of 42, and fever of 102F, lactic acidosis of 2.3. A facial CT was done call center associate showed soft tissue thickening of the preorbital and prenasal soft tissues as well as the upper cheeks. As per night hawk reading, there were gas bubbles present in the soft tissues anterior to the inferior portion of the left orbit. But after discussion with radiologist, no air in tissues seen, +air under the lid adjacent to globe. No abscess. Imaging: Facial bone CT 11/29/2016: No acute facial fracture opacification of the paranasal sinus mastoid air cells or middle ear, left facial Head CT 11/29/2016: No evidence of acute intracranial hemorrhage, edema or midline shift, no mass effect or skull fracture ID: SIRS: Sepsis secondary to facial cellulitis - resolved Assessment/Plan: Met sepsis criteria on admission, now resolved Facial cellulitis resolved on Meropenem, and Clindamycin WBC 42>7.7, lactic acidosis resolved, afebrile, vitals stable ID following Ophthalmology: Lolly-orbital swelling/edema/pus - resolved Assessment/Plan: no further drainage of left eye, able to open left eye spontaneously Scab noted on left eye Bilateral eyes reactive to light On Tobramycin gtts and ointment Neuro: History of seizures - pt reports last seizure 5 years ago - chronic Assessment/Plan: On Keppra 500mg BID Keppra level within normal limits Renal: CKD III - acute on chronic - improved Assessment/Plan: Creat 2.2 on admission now 1.[address] Williamson on discharge Rhabdo - resolved Assessment/Plan: to follow up with renal as outpatient Cardiology: Hypertension - controlled Assessment/Plan: Lisinopril on hold since hospitalized Restart on d/c Hematology: Thrombocytopenia - resolved F.E.N. Fluids: tolerating PO Electrolytes: within normal limits Nutrition: renal diet Prophylaxis: DVT: Heparin SC GI: Protonix 40mg Disposition: Discharge once cleared by ID. Full Code. Visit type - Emergency Visit Emergency Visit: Yes ED Registration Date: 11/29/16 Care time: The patient presented to the Emergency Department on the above date and was hospitalized for further evaluation of their emergent condition. - New Patient This patient is new to me today: No - Critical Care Critical Care patient: No - Discharge Referral Referred to [facility] No
--- NOTE | 2016-12-06 12:19 | PN ---
Progress Note, Physician History of Present Illness: Pt seen and examined at bedside. He is awake and alert. He has no complaints. - Current Medication List Current Medications: Active Medications Acetaminophen (Tylenol -) 650 mg PO Q4H PRN PRN Reason: FEVER OR PAIN Last Admin: 12/05/16 21:28 Dose: 650 mg Benzocaine/Menthol (Cepacol Lozenge -) 1 each MM PRN PRN PRN Reason: SORE THROAT Last Admin: 12/04/16 09:59 Dose: 1 each Clindamycin HCl (Cleocin -) 300 mg PO Q6HPO [facility] Last Admin: 12/06/16 05:28 Dose: 300 mg Diphenhydramine HCl (Benadryl -) 25 mg PO HS [facility] Last Admin: 12/05/16 21:28 Dose: 25 mg Guaifenesin (Robitussin -) 10 ml PO Q4H PRN PRN Reason: COUGH Last Admin: 12/03/16 17:12 Dose: 10 ml Heparin Sodium (Porcine) (Heparin -) 5,000 unit SQ TID [facility] Last Admin: 12/06/16 05:32 Dose: Not Given Hydrocortisone (Anusol 2.5% Hc Cream -) 1 applic TP DAILY [facility] Last Admin: 12/06/16 10:03 Dose: 1 applic Meropenem 1 gm/ Dextrose 100 mls @ 100 mls/hr IVPB Q8H-IV [facility] PRN Reason: Protocol Last Admin: 12/06/16 10:01 Dose: 100 mls/hr Lactobacillus Acidophilus (Bacid -) 1 tab PO DAILY [facility] Last Admin: 12/06/16 10:01 Dose: 1 tab Levetiracetam (Keppra -) 500 mg PO BID [facility] Last Admin: 12/06/16 10:01 Dose: 500 mg Nadolol (Corgard -) 20 mg PO DAILY [facility] Last Admin: 12/06/16 10:00 Dose: Not Given Pantoprazole Sodium (Protonix -) 40 mg PO DAILY [facility] Last Admin: 12/06/16 10:01 Dose: 40 mg Ropinirole HCl (Requip -) 0.25 mg PO HS [facility] Last Admin: 12/05/16 21:32 Dose: 0.25 mg Tamsulosin HCl (Flomax -) 0.4 mg PO DAILY@0830 [facility] Last Admin: 12/06/16 08:26 Dose: 0.4 mg Tobramycin Sulfate (Tobrex Ophthalmic Solution -) 1 drop OD Q4HWA [facility] Last Admin: 12/06/16 10:02 Dose: 1 drop Tobramycin/Dexamethasone (Tobradex Ophthalmic Ointment -) 1 applic OS HS [facility] Last Admin: 12/05/16 21:32 Dose: 1 applic - Objective Vital Signs: Vital Signs Temperature 98.0 F 12/06/16 10:00 Pulse Rate 69 12/06/16 10:00 Respiratory Rate 20 12/06/16 10:00 Blood Pressure 86/45 12/06/16 10:00 O2 Sat by Pulse Oximetry (%) 100 12/05/16 21:00 Constitutional: Yes: Calm HENT: Yes: Atraumatic Cardiovascular: Yes: S1, S2 Respiratory: Yes: CTA Bilaterally Gastrointestinal: Yes: Soft Genitourinary: Yes: WNL Musculoskeletal: Yes: WNL Edema: No Neurological: Yes: Oriented Psychiatric: Yes: Oriented Labs: CBC, BMP 12/06/16 07:10 12/06/16 07:10 INR, PTT INR 1.34 (0.82-1.09) H 11/28/16 21:50 Problem List - Problems (1) Facial cellulitis Code(s): L03.211 - CELLULITIS OF FACE (2) Alcoholic cirrhosis Code(s): K70.30 - ALCOHOLIC CIRRHOSIS OF LIVER WITHOUT ASCITES (3) Hepatitis C Code(s): B19.20 - UNSPECIFIED VIRAL HEPATITIS C WITHOUT HEPATIC COMA (4) Seizure disorder Code(s): G40.909 - EPILEPSY, UNSP, NOT INTRACTABLE, WITHOUT STATUS EPILEPTICUS (5) CKD (chronic kidney disease) Code(s): N18.9 - CHRONIC KIDNEY DISEASE, UNSPECIFIED Assessment/Plan Current Medications Generic Name Dose Route Start Last Admin Trade Name Freq PRN Reason Stop Dose Admin Acetaminophen 650 mg 12/02/16 14:43 12/05/16 21:28 Tylenol - PO 650 mg Q4H PRN Administration FEVER OR PAIN Benzocaine/Menthol 1 each 11/30/16 21:23 12/04/16 09:59 Cepacol Lozenge - MM 1 each PRN PRN Administration SORE THROAT Clindamycin HCl 300 mg 12/05/16 00:00 12/06/16 05:28 Cleocin - PO 300 mg Q6HPO [facility] Administration Diphenhydramine HCl 25 mg 12/02/16 22:00 12/05/16 21:28 Benadryl - PO 25 mg HS [facility] Administration Guaifenesin 10 ml 11/30/16 21:22 12/03/16 17:12 Robitussin - PO 10 ml Q4H PRN Administration COUGH Heparin Sodium (Porcine) 5,000 unit 11/29/16 22:00 12/06/16 05:32 Heparin - SQ Not Given TID [facility] Hydrocortisone 1 applic 12/03/16 16:30 12/06/16 10:03 Anusol 2.5% Hc Cream - TP 1 applic DAILY [facility] Administration Meropenem 1 gm/ Dextrose 100 mls @ 100 mls/hr 12/05/16 02:00 12/06/16 10:01 IVPB 100 mls/hr Q8H-IV [facility] Administration Protocol Lactobacillus Acidophilus 1 tab 12/04/16 18:30 12/06/16 10:01 Bacid - PO 1 tab DAILY [facility] Administration Levetiracetam 500 mg 11/29/16 12:45 12/06/16 10:01 Keppra - PO 500 mg BID [facility] Administration Nadolol 20 mg 12/04/16 10:00 12/06/16 10:00 Corgard - PO Not Given DAILY [facility] Pantoprazole Sodium 40 mg 11/29/16 14:15 12/06/16 10:01 Protonix - PO 40 mg DAILY [facility] Administration Ropinirole HCl 0.25 mg 12/01/16 22:00 12/05/16 21:32 Requip - PO 0.25 mg HS [facility] Administration Tamsulosin HCl 0.4 mg 11/29/16 14:00 12/06/16 08:26 Flomax - PO 0.4 mg DAILY@0830 [facility] Administration Tobramycin Sulfate 1 drop 11/29/16 14:00 12/06/16 10:02 Tobrex Ophthalmic Solution - OD 1 drop Q4HWA [facility] Administration Tobramycin/Dexamethasone 1 applic 11/29/16 22:00 12/05/16 21:32 Tobradex Ophthalmic Ointment - OS 1 applic HS [facility] Administration Impression 1. CKD with acute component 2. Hep C 3. liver cirrhosis 4. facial cellulitis 5. epilepsy 6. substance abuse Plan - renal function is stable - pt is tolerating diet, no need for fluids - abx per ID - will see pt in office - renal function is actually improved - counselled about drug use, cocaine - will follow PRN Dr Williamson
[2016-12-06 14:25] LABS: PLATELET ESTIMATE ADEQUATE (NORMAL)
--- NOTE | 2016-12-06 17:07 | PN ---
Progress Note, Physician History of Present Illness: patient doing much better no new issues eye looks normal scab formation over the eye - Current Medication List Current Medications: Active Medications Acetaminophen (Tylenol -) 650 mg PO Q4H PRN PRN Reason: FEVER OR PAIN Last Admin: 12/05/16 21:28 Dose: 650 mg Benzocaine/Menthol (Cepacol Lozenge -) 1 each MM PRN PRN PRN Reason: SORE THROAT Last Admin: 12/04/16 09:59 Dose: 1 each Clindamycin HCl (Cleocin -) 300 mg PO Q6HPO [facility] Last Admin: 12/06/16 12:23 Dose: 300 mg Diphenhydramine HCl (Benadryl -) 25 mg PO HS [facility] Last Admin: 12/05/16 21:28 Dose: 25 mg Guaifenesin (Robitussin -) 10 ml PO Q4H PRN PRN Reason: COUGH Last Admin: 12/03/16 17:12 Dose: 10 ml Heparin Sodium (Porcine) (Heparin -) 5,000 unit SQ TID [facility] Last Admin: 12/06/16 13:55 Dose: 5,000 unit Hydrocortisone (Anusol 2.5% Hc Cream -) 1 applic TP DAILY [facility] Last Admin: 12/06/16 10:03 Dose: 1 applic Meropenem 1 gm/ Dextrose 100 mls @ 100 mls/hr IVPB Q8H-IV [facility] PRN Reason: Protocol Last Admin: 12/06/16 10:01 Dose: 100 mls/hr Lactobacillus Acidophilus (Bacid -) 1 tab PO DAILY [facility] Last Admin: 12/06/16 10:01 Dose: 1 tab Levetiracetam (Keppra -) 500 mg PO BID [facility] Last Admin: 12/06/16 10:01 Dose: 500 mg Nadolol (Corgard -) 20 mg PO DAILY [facility] Last Admin: 12/06/16 10:00 Dose: Not Given Pantoprazole Sodium (Protonix -) 40 mg PO DAILY [facility] Last Admin: 12/06/16 10:01 Dose: 40 mg Ropinirole HCl (Requip -) 0.25 mg PO HS [facility] Last Admin: 12/05/16 21:32 Dose: 0.25 mg Tamsulosin HCl (Flomax -) 0.4 mg PO DAILY@0830 [facility] Last Admin: 12/06/16 08:26 Dose: 0.4 mg Tobramycin Sulfate (Tobrex Ophthalmic Solution -) 1 drop OD Q4HWA [facility] Last Admin: 12/06/16 13:55 Dose: 1 drop Tobramycin/Dexamethasone (Tobradex Ophthalmic Ointment -) 1 applic OS HS [facility] Last Admin: 12/05/16 21:32 Dose: 1 applic - Objective Vital Signs: Vital Signs Temperature 98.0 F 12/06/16 10:00 Pulse Rate 69 12/06/16 10:00 Respiratory Rate 20 12/06/16 10:00 Blood Pressure 86/45 12/06/16 10:00 O2 Sat by Pulse Oximetry (%) 100 12/05/16 21:00 Constitutional: Yes: No Distress, Calm Eyes: Yes: Other (eye looks normal) HENT: Yes: Other (facial cellulitits resolved) Cardiovascular: Yes: Regular Rate and Rhythm Respiratory: Yes: Regular, CTA Bilaterally Gastrointestinal: Yes: Normal Bowel Sounds, Soft Musculoskeletal: Yes: WNL Extremities: Yes: WNL Integumentary: Yes: WNL Wound/Incision: Yes: Clean/Dry Neurological: Yes: Alert, Oriented Psychiatric: Yes: Alert, Oriented Labs: CBC, BMP 12/06/16 07:10 12/06/16 07:10 INR, PTT INR 1.34 (0.82-1.09) H 11/28/16 21:50 Assessment/Plan Problems (1) Facial cellulitis Code(s): L03.211 - CELLULITIS OF FACE (2) Alcoholic cirrhosis Code(s): K70.30 - ALCOHOLIC CIRRHOSIS OF LIVER WITHOUT ASCITES (3) Hepatitis C Code(s): B19.20 - UNSPECIFIED VIRAL HEPATITIS C WITHOUT HEPATIC COMA (4) Seizure disorder Code(s): G40.909 - EPILEPSY, UNSP, NOT INTRACTABLE, WITHOUT STATUS EPILEPTICUS (5) CKD (chronic kidney disease) Code(s): N18.9 - CHRONIC KIDNEY DISEASE, UNSPECIFIED drug abuse uti plan stop zeusopemaria antonia can send patient home on clinda 300mg every 8hourly for another 5 days
[2016-12-06] MEDS: rOPINIRole HCL 0.25 MG TABLET PO SCH (21:13)
[2016-12-06] MEDS: diphenhydrAMINE HCL 25 MG CAPSULE (FP) PO SCH (21:13)
[2016-12-06] MEDS: TOBRAMYCIN/DEXAMETHASONE OPHTH. OINTMENT 1 TUBE OS SCH (21:13)
[2016-12-07] MEDS: CLINDAMYCIN HCL 150 MG CAPSULE (FP) PO SCH (05:40)
[2016-12-07] MEDS: TOBRAMYCIN 0.3% OPHTH SOLN 5 ML BOTTLE OD SCH ×2 (05:40→09:20)
[2016-12-07] MEDS: HEPARIN NA (PORCINE) 5,000 UNITS/ML 1ML VIAL SQ SCH (05:41)
[2016-12-07 06:23] VITALS: TEMP 97.8
[2016-12-07] MEDS ORDERED: PT OWN MED DRAWER 7, Y5N ONE ×2 (06:27→09:10)
--- NOTE | 2016-12-07 07:30 | DS ---
Physical Exam: SUBJECTIVE: On 12/06/2016, pt seen and examined He states that feels much better. Denies chest pain, shortness of breath. Denies dizziness or lightheadness. OBJECTIVE: Facial cellulitis resolved left upper lid with scab which is likely where the infection started States he is still having diarrhea, likely secondary to antibiotics, on Bacid - he is Cdiff negative Physical therapy to ambulate patient Once cleared by ID, can be d/c per ID recommendations Vital Signs Period Temp Pulse Resp BP Sys/Eisenberg Pulse Ox Last 24 Hr 97.8 F-98.0 F 56-69 18-20 86-139/45-85 PHYSICAL EXAM GENERAL: The patient is awake, alert, and fully oriented, in no acute distress. HEAD: Normal with no signs of trauma. EYES: PERRL, extraocular movements intact, sclera anicteric, conjunctiva clear. ENT: Ears normal, nares patent, oropharynx clear without exudates, moist mucous membranes. NECK: Trachea midline, full range of motion, supple. LUNGS: Breath sounds equal, clear to auscultation bilaterally, no wheezes, no crackles, no accessory muscle use. HEART: Regular rate and rhythm, S1, S2 without murmur, rub or gallop. ABDOMEN: Soft, nontender, nondistended, normoactive bowel sounds, no guarding, no rebound, no hepatosplenomegaly, no masses. EXTREMITIES: 2+ pulses, warm, well-perfused, no edema. NEUROLOGICAL: Cranial nerves II through XII grossly intact. Normal speech, gait not observed. PSYCH: Normal mood, normal affect. SKIN: Warm, dry, normal turgor, no rashes or lesions noted. LABS Laboratory Results - last 24 hr 12/06/16 12/06/16 07:10 07:10 WBC 7.7 RBC 3.87 L Hgb 11.0 L Hct 33.1 L MCV 85.4 MCHC 33.1 RDW 16.9 H Plt Count 165 D MPV 9.3 Neutrophils % 50.0 Lymphocytes % 21.0 Monocytes % 18.0 H Eosinophils % 4.0 Basophils % 1.0 D Band Neutrophils 1.0 Myelocytes 3 H D Differential Comment Manual diff done Reactive Lymphocytes 2 Platelet Estimate Adequate Sodium 141 Potassium 4.2 Chloride 108 H Carbon Dioxide 23 Anion Gap 10 BUN 20 H Creatinine 1.5 H Random Glucose 75 Calcium 7.6 L Phosphorus 2.1 L Magnesium 1.9 HOSPITAL COURSE: Date of Admission:11/29/16 Date of Discharge: 12/06/16 Patient is a 60 year old male with a significant past medical history of Hepatitis C, cirrhosis, CKD III, hep. encephalopathy, GI bleed from varices, pancreatitis, hypertension, seizure disorder, falls, pancreatitis and polysubstance abuse (+cocaine). He presented to the ED on 11/29/2016 with facial erythema and swelling. Patient is a poor historian. As per patient, he woke up about 2 days ago with facial swelling and facial pain. He denies any shortness of breath, fever, chills, nausea or vomiting. He denies any trauma or any recent new medications. He further any recent alcohol or drug use. States last time he drank or did drugs was "last January". On admission, he was found to have the following labs: WBC of 42, and fever of 102F, lactic acidosis of 2.3. A facial CT was done predatory hunter showed soft tissue thickening of the preorbital and prenasal soft tissues as well as the upper cheeks. As per night hawk reading, there were gas bubbles present in the soft tissues anterior to the inferior portion of the left orbit. But after discussion with radiologist, no air in tissues seen, +air under the lid adjacent to globe. No abscess. Imaging: Facial bone CT 11/29/2016: No acute facial fracture opacification of the paranasal sinus mastoid air cells or middle ear, left facial Head CT 11/29/2016: No evidence of acute intracranial hemorrhage, edema or midline shift, no mass effect or skull fracture ID: SIRS: Sepsis secondary to facial cellulitis - resolved Assessment/Plan: Met sepsis criteria on admission, now resolved Facial cellulitis resolved on Meropenem, and Clindamycin WBC 42>7.7, lactic acidosis resolved, afebrile, vitals stable ID following Ophthalmology: Lolly-orbital swelling/edema/pus - resolved Assessment/Plan: no further drainage of left eye, able to open left eye spontaneously Scab noted on left eye Bilateral eyes reactive to light On Tobramycin gtts and ointment Neuro: History of seizures - pt reports last seizure 5 years ago - chronic Assessment/Plan: On Keppra 500mg BID Keppra level within normal limits Renal: CKD III - acute on chronic - improved Assessment/Plan: Creat 2.2 on admission now 1.[address] Williamson on discharge Rhabdo - resolved Assessment/Plan: to follow up with renal as outpatient Cardiology: Hypertension - controlled Assessment/Plan: Lisinopril on hold since hospitalized Restart on d/c Hematology: Thrombocytopenia - resolved Disposition: Discharge home to follow up with PCP and Renal as an outpatient. Full Code. Minutes to complete discharge: 60 Discharge Summary Reason For Visit: FACIAL CELLULITIS ALCOHOLIC CIRRHOSIS Current Active Problems CKD (chronic kidney disease) (Acute) Facial cellulitis (Acute) Periorbital cellulitis of left eye (Acute) Alcoholic cirrhosis (Chronic) Hepatitis C (Chronic) Condition: Stable - Instructions Diet, Activity, Other Instructions: Mr. Lopez: Continue Clindamycin 300mg every 8 hours for 5 more days Continue the eye drops and ointment as prescribed Please take all medications that were sent to your pharmacy as prescribed. Please follow up with your PCP and Dr. Williamson within 5 days after discharge. Please return to the ER with any new or persistent symptoms. Referrals: Sofia Degroot MD [Staff Physician] - Rangel Bernard MD [Primary Care Provider] - Bismark Williamson MD [Staff Physician] - Disposition: HOME - Home Medications Comprehensive Discharge Medication List: Ambulatory Orders Folic Acid 1 mg PO 11/29/16 Levetiracetam [Keppra -] 500 mg PO BID 11/29/16 Lisinopril 10 mg PO 11/29/16 Ropinirole HCl 0.25 mg PO 11/29/16 Spironolactone [Aldactone] 50 mg PO BID 11/29/16 Tamsulosin HCl [Flomax -] 0.4 mg PO DAILY 11/29/16 Vit B Comp/C/FA/Iron/Vit E [Vitamin B Complex Tablet] 1 each PO 11/29/16 Clindamycin [Cleocin -] 300 mg PO Q8H #20 tab 12/06/16 Levetiracetam [Keppra -] 500 mg PO BID tablet 12/06/16 Nadolol [Corgard -] 20 mg PO DAILY #30 tablet 12/06/16 Pantoprazole Sodium [Protonix -] 40 mg PO DAILY #30 tab 12/06/16 Tamsulosin HCl [Flomax -] 0.4 mg PO DAILY@0830 #30 cap 12/06/16 Tobramycin 0.3% Ophth Soln [Tobrex Ophthalmic Solution -] 1 drop OD Q4HWA #1 bottle 12/06/16 Tobramycin Sulf/Dexamethasone [Tobradex Ophthalmic Ointment -] 1 applic OS HS # 1 tube 12/06/16 This patient is new to me today: No Emergency Visit: Yes ED Registration Date: 11/29/16 Care time: The patient presented to the Emergency Department on the above date and was hospitalized for further evaluation of their emergent condition. Critical Care patient: No - Discharge Referral Referred to [facility] Med P.C.: No
[2016-12-07] MEDS: TAMSULOSIN HCL 0.4 MG CAP.ER.24H (FP) PO SCH (08:16)
[2016-12-07] MEDS: ACETAMINOPHEN 325 MG TABLET (FP) PO PRN (08:19)
[2016-12-07] MEDS: NADOLOL 20 MG TABLET (FP) PO SCH (09:20)
[2016-12-07] MEDS: PANTOPRAZOLE 40 MG TABLET (FP) PO SCH (09:20)
[2016-12-07] MEDS: LACTOBACILLUS ACIDOPHILUS 1 EACH TAB (FP) PO SCH (09:20)
[2016-12-07] MEDS: levETIRAcetam 500 MG TABLET (FP) PO SCH (09:20)
[2016-12-07] MEDS: HYDROCORTISONE 2.5% TOPICAL CREAM 30 GM TUBE TP SCH (09:25)
[2016-12-07 09:35] VITALS: BP 117/74; PULSE 64
== END 2016-12-07 11:32 | disposition home or self-care (01) | DRG 720 ==
LOC: JER 19:00 → JERBED 11-29 00:14 → J6S 11-29 02:25
PROVIDERS: ADMIT Internal Medicine; ATTEND Nurse Practitioner Family
DX: A41.9 Sepsis, unspecified organism (principal); N17.9 Acute kidney failure, unspecified; E87.2 Acidosis; R64 Cachexia; D69.6 Thrombocytopenia, unspecified; K70.30 Alcoholic cirrhosis of liver without ascites; I95.9 Hypotension, unspecified; E87.1 Hypo-osmolality and hyponatremia; N18.3 Chronic kidney disease, stage 3 (moderate); L03.211 Cellulitis of face; N39.0 Urinary tract infection, site not specified; B19.20 Unspecified viral hepatitis C without hepatic coma; F14.10 Cocaine abuse, uncomplicated; F10.10 Alcohol abuse, uncomplicated; F11.10 Opioid abuse, uncomplicated; I12.9 Hypertensive chronic kidney disease with stage 1 through stage 4 chronic kidney disease, or unspecified chronic kidney disease; M54.5 Low back pain; Z88.0 Allergy status to penicillin; G40.909 Epilepsy, unspecified, not intractable, without status epilepticus; R74.0 Nonspecific elevation of levels of transaminase and lactic acid dehydrogenase [LDH]; F17.210 Nicotine dependence, cigarettes, uncomplicated; R05 Cough; B95.2 Enterococcus as the cause of diseases classified elsewhere; R07.89 Other chest pain; R19.7 Diarrhea, unspecified; Z68.22 Body mass index [BMI] 22.0-22.9, adult
CPT/HCPCS: 36415; 70450-TC; 70486-TC; 71010-TC; 76775-TC; 80048; 80053; 80307; 81003; 81015; 82140; 82550; 82553; 82570; 83605; 83735; 84100; 84156; 84484; 85025; 85610; 85730; 86140; 87040; 87070; 87086; 87186; 87205; 87324; 87389; 87449; 93005; 93010; 93306-TC; 94010; 97116-GP; 97161-GP; 99283-25; J1644

== ENCOUNTER 2017-05-09 10:13 | Day surgery (SDC) | payer OTHER ==
[2017-05-09] MEDS ORDERED: LEVOFLOXACIN 500 MG IVPB 100 ML IVPB ONE (10:17)
[2017-05-09] MEDS ORDERED: MIDAZOLAM HCL 2 MG/2 ML SINGLE DOSE VIAL ONE (10:17)
[2017-05-09 11:02] VITALS: BMI 21.6
[2017-05-09] MEDS ORDERED: ONDANSETRON 4 MG/2 ML VIAL IVPUSH PRN (11:20)
[2017-05-09] MEDS ORDERED: oxyCODONE HCL 5 MG TABLET PO PRN (11:20)
[2017-05-09] MEDS ORDERED: LACTATED RINGERS SOLUTION 1,000 ML IV SCH (11:30)
[2017-05-09] MEDS ORDERED: LEVOFLOXACIN 500 MG PREMIX BAG IVPB ONE (12:00)
[2017-05-09 13:34] VITALS: TEMP 99
[2017-05-09 14:11] VITALS: BP 132/71
[2017-05-09 14:14] VITALS: PULSE 60
--- NOTE | 2017-05-09 16:04 | OP ---
Operative Note - Note: Operative Date: 05/09/17 Pre-Operative Diagnosis: left renal stone Operation: left eswl Post-Operative Diagnosis: Same as Pre-op Surgeon: Larry Merino Anesthesia: Fractional
--- NOTE | 2017-05-10 14:38 | OP ---
DATE OF OPERATION: 05/09/2017 PREOPERATIVE DIAGNOSIS: Left renal stone. POSTOPERATIVE DIAGNOSIS: Left renal stone. PROCEDURE: Left extracorporeal shock wave lithotripsy. ATTENDING: Angel Luu MD ANESTHESIA: Fractional. DESCRIPTION OF OPERATION: The patient was brought in the operating room and placed in a supine position on the operating room table. Ultrasonography and fluoroscopy were performed. A 5-mm left mid-pole stone was identified. At this point, anesthesia was administered as well as preoperative surgical prophylactic antibiotics. With this accomplished, extracorporeal shock wave lithotripsy was performed; 2500 impulses at 17 joules of power were administered to the stone. Excellent fragmentation was noted under real-time ultrasonography and fluoroscopy. No complications were noted. The patient tolerated the procedure very well. The disposition of the patient was to the recovery room. ANGEL LUU M.D. [id number]
== END 2017-05-09 14:16 | disposition home or self-care (01) ==
LOC: JASU-SURG 10:13
PROVIDERS: ATTEND Urology
PROC: 0TF4XZZ Fragmentation in Left Kidney Pelvis, External Approach (ICD-10-PCS; principal; 2017-05-09 10:15)
DX: N20.0 Calculus of kidney (principal)
CPT/HCPCS: 94760

== ENCOUNTER 2017-11-16 12:41 | Emergency (ER) | payer OTHER ==
[2017-11-16 12:57] VITALS: BMI 22.1
--- NOTE | 2017-11-16 13:29 | PDOC ---
History of Present Illness - General Chief Complaint: Bleeding from Anus Stated Complaint: GI BLEED Time Seen by Provider: 11/16/17 12:58 - History of Present Illness Initial Comments: 11/16/17 13:34 62yo M with h/o Hep C, IVTUYET who presents today from Dr. Lopez's office where she noted the patients hemoglobin trending down and multiple frequent falls. 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 He experienced some weakness which caused him to have multiple frequent falls. At this point he went to see Dr. Lopez prompting his evaluation here. Pt endorses periods of diarrhea and constipation, however he reports never looking at his BM and that he was unaware of any blood in his stool until his guaiac assessment today. Pt denies any pain with defecation. In addition he endorses some slight anorexia because his taste of food has change, but still has some appetite. In addition, pt has had prior workup for hepatitis C prior, but did not remember his physician's name. Pt denies any history of colonoscopy or endoscopy before. Pt denies fever/chills, nausea, vomiting, SOB, CP/discomfort, abdominal pain, dysuria. PCP: Dr. Bernard (seen by Dr. Lopez today) Past History - Past Medical History Allergies/Adverse Reactions: Allergies Allergy/AdvReac Type Severity Reaction Status Date / Time Penicillins Allergy Verified 11/16/17 12:56 aspirin AdvReac Intermediate Verified 11/16/17 12:56 Home Medications: Ambulatory Orders Folic Acid 1 mg PO DAILY 11/29/16 Lisinopril 10 mg PO DAILY 11/29/16 Vit B Comp/C/Folic/Iron/Vit E [Vitamin B Complex Tablet] 1 each PO DAILY levETIRAcetam [Keppra -] 500 mg PO BID tablet 12/06/16 Budesonide/Formeterol Fumarate [SYMBICORT 160/4.5mcg -] 1 inh PO BID 11/16/17 Cholecalciferol (Vitamin D3) [Vitamin D3 -] 2,000 unit PO DAILY 11/16/17 Lipase/Protease/Amylase [Kwame Curry 36,000 Units Capsule] 1 each PO TID 11/16/17 Oxybutynin Chloride [Oxybutynin Chloride ER] 10 mg PO DAILY 11/16/17 Ropinirole HCl [Requip] 0.25 mg PO DAILY 11/16/17 Tamsulosin HCl [Flomax -] 0.4 mg PO BID 11/16/17 CVA: (hepatic encephalopathy) COPD: No Diabetes: No GI Disorders: Yes (GI bleed) Disorders: Yes (STONES,BPH) HTN: Yes Liver Disease: Yes (CIRRHOSIS) Seizures: Yes (5YRS AGO) Thyroid Disease: No Other medical history: BPH, GERD,HEP C - Surgical History Abdominal Surgery: Yes (GASTRIC BYPASS) - Suicide/Smoking/Psychosocial Hx Smoking History: Former smoker Have you smoked in the past 12 months: No Number of Cigarettes Smoked Daily: 3 If you are a former smoker, when did you quit?: 2001 Information on smoking cessation initiated: No 'Breaking Loose' booklet given: 09/10/13 Hx Alcohol Use: No Drug/Substance Use Hx: No Substance Use Type: Cocaine Hx Substance Use Treatment: Yes Review of Systems - Review of Systems Constitutional: Yes: Weakness. No: Chills, Fever, Night Sweats HEENTM: No: Eye Pain, Blurred Vision, Nose Congestion, Throat Pain Respiratory: No: Cough, Shortness of Breath, Wheezing Cardiac (ROS): No: Chest Pain, Edema, Lightheadedness, Palpitations, Syncope, Chest Tightness ABD/GI: Yes: Constipated, Diarrhea, Poor Appetite. No: Abdominal Distended, Abd. Pain w/ defecation, Nausea, Vomiting, Abdominal cramping : No: Dysuria, Frequency, Incontinence Musculoskeletal: Yes: Back Pain. No: Neck Pain Integumentary: Yes: Pallor. No: Rash Neurological: No: Headache, Numbness, Tingling Psychiatric: No: Anxiety, Depression Hematologic/Lymphatic: No: Easy Bleeding, Easy Bruising *Physical Exam - Vital Signs Last Vital Signs Temp Pulse Resp BP Pulse Ox 98.1 F 51 L 16 133/63 100 11/16/17 12:52 11/16/17 12:52 11/16/17 12:52 11/16/17 12:52 11/16/17 12:52 - Physical Exam Comments: 11/16/17 14:40 GEN: NAD, awake, alert, cachectic appearing, pallor around eyes HEENT: NC/AT, EOMI, JOSE ALBERTO, conjunctival pallor, sclera discoloration noted, dry- moist mucosa, poor dentition, Temporal wasting LUNGS: CTA bilaterally CARDIAC: RRR no murmurs appreciated ABD: Soft, hyperactive BS, nondistended, discomfort with deep palpation near lower quadrants, hepatomegaly (1.5 finger widths below rib angle), no rebound, negative Moore's RECTAL: No mass, stool soft, good sphincter tone, light brown coloured stool, prostate slightly enlarged EXT: No edema, 2+ DP pulses Heart Score/ECG Review #1 11/16/17 15:00 NSR @58bpm, frequent PVCs noted, normal axis, normal R wave progression. OK interval 152ms, Qtc 420ms. No ST abnormalities ED Treatment Course - LABORATORY CBC & Chemistry Diagram: 11/16/17 13:35 11/16/17 15:08 Medical Decision Making - Medical Decision Making 11/16/17 13:44 62yo M sent over for decreasing Hgb, stool + occult blood, weakness/fatigue --R/o GI bleed (upper vs. lower), r/o mass, r/o diverticulitis, r/o mass, r/ o GI bleed, r/o 11/16/17 14:29 CBC with Hgb of 13.0, CMP hemolyzed (will redraw), Guaiac postive for occult blood Will attempt to call Dr. Lopez and discuss 11/16/17 14:[address] Lopez: If able to will add on AFP and CEA, stated that earlier she tried to find a GI office to send the pt to, however offices were full and Dr. Alonzo's office can see him tomorrow --Will touch base with Dr. Silvia Alonzo's office --Being that pt has stool positive guaiac in the setting of extreme weight loss, cachexia, and decreased appetite will order abd CT to r/o mass 11/16/17 15:[address] Silvia Alonzo's office: pt can come as early as 9am tomorrow to follow-up. *DC/Admit/Observation/Transfer Diagnosis at time of Disposition: Rectal bleed - Discharge Dispostion Disposition: HOME Condition at time of disposition: Stable Admit: No - Referrals Referrals: Rangel Bernard MD [Primary Care Provider] - Sonny Alonzo DO [Staff Physician] - Miguel Angel Coates MD [Staff Physician] - - Patient Instructions Printed Discharge Instructions: Gastrointestinal Bleeding Additional Instructions: You were seen here because Dr. Lopez noticed rectal bleeding. We also found that you have some rectal bleeding, however your blood counts were normal. You other labs were also unchanged from your prior labs. The CAT scan of your abdomen showed you have gallstones and we recommend you have elective surgery at a later point if you have abdominal pain that bothers you. --I gave you the information for Dr. Coates who is a general surgeon and if you would like to have surgery it would be best discussed with him I spoke to Dr. Devin Alonzo's office (a license distributor) and you can see him tomorrow as early as 9am --It is VERY important to see him as he will most likely need to do a scope to find a source of the bleeding It is also very important to follow-up with your general doctor (either Dr. Lopez or Dr. Bernard) - Post Discharge Activity
[2017-11-16 13:46] LABS: BASO % 0.5 % (0-2.0); EOS % 2.5 % (0-4.5); HEMATOCRIT 39.2 % (35.4-49); LYMPH % 22.1 % (8-40); MCH 29.1 pg (25.7-33.7); MCHC 33.2 g/dl (32.0-35.9); MEAN CELL VOLUME 87.6 fl (80-96); MEAN PLT VOLUME 9.4 fl (7.5-11.1); MONO % 13.3 % (3.8-10.2); NEUT % 61.6 % (42.8-82.8); PLATELET COUNT 125 K/MM3 (134-434); RBC 4.47 M/mm3 (4.00-5.60); RDW 17.8 % (11.9-15.9); WHITE BLOOD COUNT 6.6 K/mm3 (4.0-10.0)
[2017-11-16 13:58] LABS: INR 1.04 (0.82-1.09); PROTHROMBIN TIME (PATIENT) 11.7 SEC (9.7-13.0)
--- NOTE | 2017-11-16 14:44 | PDOC ---
Attending Attestation - Resident Resident Name: ZoëMissael - ED Attending Attestation I have performed the following: I have examined & evaluated the patient, The case was reviewed & discussed with the resident, I agree w/resident's findings & plan, Exceptions are as noted - HPI HPI: 11/16/17 14:29 Mr Lopez is a 62 yo M who presents to the ER from PMDs office due to progressively decreasing Hgb and weakness. No fevers or chills No abdominal pain, no nausea or vomiting Pt reports repeated falls No dizziness, no vertigo No headache no focal weakness or numbness - Physicial Exam PE: 11/16/17 14:44 GENERAL: The patient is in no acute distress. EYES: PERRLA, EOMI, sclera anicteric, conjunctiva clear. ENT: Ears normal, nares patent, oropharynx clear without exudates. Moist mucous membranes. NECK: Normal range of motion, supple LUNGS: Breath sounds equal, clear to auscultation bilaterally. No wheezes, and no crackles. HEART:Regular rate and rhythm, normal S1 and S2 without murmur, rub or gallop. ABDOMEN: Soft, nontender EXTREMITIES: Normal range of motion, no edema. NEUROLOGICAL: Cranial nerves II through XII grossly intact. Normal speech. No focal neurological deficits. MUSCULOSKELETAL: Back non-tender to palpation, no CVA tenderness SKIN: Warm, Dry, normal turgor, no rashes or lesions noted. - Medical Decision Making 11/16/17 14:46 Laboratory Tests 11/16/17 11/16/17 11/16/17 13:35 13:35 14:08 WBC 6.6 Hgb 13.0 Hct 39.2 Plt Count 125 L INR 1.04 Stool Occult Blood Positive Pt Hgb is 13.0 here Case reviewed with Dr. Lopez. She requests adding AFP and CEA Stool positive guaiac + weight loss, cachexia, and decreased appetite will order abd CT to r/o mass (no prior colonscopy) CT demonstrates: cholelithiasis, ductal dilitation which is stable, no masses seen Will discharge to home Pt to follow up with PMD in 1 week We have scheduled follow up with Dr Alonzo tomorrow Clinical Impression: guiaic positive stools, initial presentation
--- NOTE | 2017-11-16 15:33 | EKG ---
Test Reason : Blood Pressure : / mmHG Vent. Rate : 058 BPM Atrial Rate : 058 BPM P-R Int : 152 ms QRS Dur : 084 ms QT Int : 428 ms P-R-T Axes : 069 005 060 degrees QTc Int : 420 ms SINUS BRADYCARDIA WITH FREQUENT PREMATURE VENTRICULAR COMPLEXES OTHERWISE NORMAL ECG WHEN COMPARED WITH ECG OF 02-DEC-2016 04:16, PREMATURE VENTRICULAR COMPLEXES ARE NOW PRESENT CRITERIA FOR ANTEROSEPTAL INFARCT ARE NO LONGER PRESENT T WAVE INVERSION NO LONGER EVIDENT IN ANTERIOR LEADS Confirmed by ETHEL BOYD, CHEIKH ([id number]) on 11/16/2017 3:32:46 PM Referred By: Confirmed By:CHEIKH DAVENPORT MD
[2017-11-16 15:41] LABS: ALBUMIN 3.1 g/dl (3.4-5.0); ANION GAP 4 (8-16); BILIRUBIN,TOTAL 0.8 mg/dL (0.2-1.0); BLOOD UREA NITROGEN 15 mg/dL (7-18); CALCIUM 9.5 mg/dL (8.5-10.1); CHLORIDE 110 mmol/L (98-107); CO2 27 mmol/L (21-32); CREATININE 1.6 mg/dL (0.7-1.3); GLUCOSE,RANDOM 77 mg/dL (74-106); SGPT/ALT 46 U/L (12-78); SODIUM 141 mmol/L (136-145); TOT PROT 8.9 g/dl (6.4-8.2)
[2017-11-16 15:44] LABS: ALK PHOS 203 U/L (45-117)
[2017-11-16 15:50] LABS: POTASSIUM 4.8 mmol/L (3.5-5.1); SGOT/AST 51 U/L (15-37)
[2017-11-16 17:43] VITALS: TEMP 97.8
[2017-11-16 21:38] VITALS: BP 129/76; PULSE 54
== END 2017-11-16 21:09 | disposition home or self-care (01) ==
LOC: JER 12:41
DX: K62.5 Hemorrhage of anus and rectum (principal); K74.60 Unspecified cirrhosis of liver; B18.2 Chronic viral hepatitis C; Z91.81 History of falling; Z87.442 Personal history of urinary calculi; Z87.891 Personal history of nicotine dependence; N40.0 Benign prostatic hyperplasia without lower urinary tract symptoms
CPT/HCPCS: 36415; 74176-TC; 80053; 82105; 82272; 82378; 82550; 84484; 85025; 85610; 93005; 93010; 99283-25

== ENCOUNTER 2017-11-22 10:55 | Day surgery (SDC) | payer OTHER ==
[2017-11-21 15:23] VITALS: BMI 22.1
[2017-11-22] MEDS ORDERED: PROPOFOL 20 ML ONE (11:30)
[2017-11-22] MEDS ORDERED: SODIUM CHLORIDE 1,000 ML IV SCH (14:15)
[2017-11-22 14:27] LABS: HEMATOCRIT 33.3 % (35.4-49); MCH 29.2 pg (25.7-33.7); MCHC 33.1 g/dl (32.0-35.9); MEAN CELL VOLUME 88.1 fl (80-96); MEAN PLT VOLUME 9.3 fl (7.5-11.1); PLATELET COUNT 95 K/MM3 (134-434); RBC 3.78 M/mm3 (4.00-5.60); RDW 18.3 % (11.9-15.9); WHITE BLOOD COUNT 5.3 K/mm3 (4.0-10.0)
--- NOTE | 2017-11-22 14:33 | HP ---
CHIEF COMPLAINT: Rectal Bleeding s/p colonoscopy PCP: Dr Clements GI: Dr. Parham HISTORY OF PRESENT ILLNESS: 62 year old M with pmh of cirrhosis, hepatitis C, GERD, CKD stage 3, IVDA, HTN, pancreatic insufficiency, rectal variceal bleeding, bph, and seizure d/o presented with rectal bleeding during colonoscopy. Patient went to PCP a week ago and found to have low hgb and + FOBT. Patient sent to ER for further evaluation. Patient f/u with Dr. Parham today for colonoscpoy. During procedure, patient found to have erythematous mucosa, which was biopsied. Patient had significant bleeding after biopsy. Hemostasis was achieved with endoclips. Patient to be observed for further bleeding after procedure. Patient endorses 10 lb weight loss over past month and loss of appetite. Patient denies fever, chills, night sweats, chest pain, sob, blood in urine, yellow stool, yellowing of skin/eyes. Currently patient feels well without any headache, dizziness or lightheadedness. PAST MEDICAL HISTORY: as per hpi PAST SURGICAL HISTORY: gastric bypass Social History: Smoking: quit years ago Alcohol: quit 2 years ago Drugs: +cocaine Family History: Allergies Penicillins Allergy (Verified 11/16/17 12:56) aspirin Adverse Reaction (Intermediate, Verified 11/16/17 12:56) HOME MEDICATIONS: Home Medications Medication Instructions Recorded Folic Acid 1 mg PO DAILY 11/29/16 Lisinopril 10 mg PO DAILY 11/29/16 Vit B Comp/C/Folic/Iron/Vit E 1 each PO DAILY 11/29/16 [Vitamin B Complex Tablet] levETIRAcetam [Keppra -] 500 mg PO BID tablet 12/06/16 Budesonide/Formeterol Fumarate 1 inh PO BID 11/16/17 [SYMBICORT 160/4.5mcg -] Cholecalciferol (Vitamin D3) 2,000 unit PO DAILY 11/16/17 [Vitamin D3 -] Lipase/Protease/Amylase [Kwame Curry 1 each PO TID 11/16/17 36,000 Units Capsule] Oxybutynin Chloride [Oxybutynin 10 mg PO DAILY 11/16/17 Chloride ER] Ropinirole HCl [Requip] 0.25 mg PO DAILY 11/16/17 Tamsulosin HCl [Flomax -] 0.4 mg PO BID 11/16/17 REVIEW OF SYSTEMS CONSTITUTIONAL: Absent: fever, chills, diaphoresis, generalized weakness, malaise, loss of appetite, weight change HEENT: Absent: rhinorrhea, nasal congestion, throat pain, throat swelling, difficulty swallowing, mouth swelling, ear pain, eye pain, visual changes CARDIOVASCULAR: Absent: chest pain, syncope, palpitations, irregular heart rate, lightheadedness , peripheral edema RESPIRATORY: Absent: cough, shortness of breath, dyspnea with exertion, orthopnea, wheezing, stridor, hemoptysis GASTROINTESTINAL: Absent: abdominal pain, abdominal distension, nausea, vomiting, diarrhea, constipation, melena, hematochezia GENITOURINARY: Absent: dysuria, frequency, urgency, hesitancy, hematuria, flank pain, genital pain MUSCULOSKELETAL: Absent: myalgia, arthralgia, joint swelling, back pain, neck pain SKIN: Absent: rash, itching, pallor HEMATOLOGIC/IMMUNOLOGIC: Absent: easy bleeding, easy bruising, lymphadenopathy, frequent infections ENDOCRINE: Absent: unexplained weight gain, unexplained weight loss, heat intolerance, cold intolerance NEUROLOGIC: Absent: headache, focal weakness or paresthesias, dizziness, unsteady gait, seizure, mental status changes, bladder or bowel incontinence PSYCHIATRIC: Absent: anxiety, depression, suicidal or homicidal ideation, hallucinations. PHYSICAL EXAMINATION Vital Signs - 24 hr 11/22/17 11/22/17 11/22/17 12:11 13:13 13:30 Temperature 98.3 F 97.8 F Pulse Rate 69 76 62 Respiratory 18 20 18 Rate Blood Pressure 135/85 148/95 116/69 O2 Sat by Pulse 100 100 100 Oximetry (%) 11/22/17 11/22/17 13:46 14:07 Temperature Pulse Rate 53 L 64 Respiratory 18 18 Rate Blood Pressure 146/59 154/99 O2 Sat by Pulse 100 100 Oximetry (%) GENERAL: Awake, alert, and fully oriented, in no acute distress. +appears uncomfortable in bed HEAD: Normal with no signs of trauma. EYES: Pupils equal, round and reactive to light, Extraocular movements intact, sclera anicteric, conjunctiva clear. No lid lag. EARS, NOSE, THROAT: Oropharynx clear without exudates. Moist mucous membranes. LUNGS: Breath sounds equal, clear to auscultation bilaterally. No wheezes, and no crackles. No accessory muscle use. HEART: Regular rate and rhythm, normal S1 and S2 without murmur, rub or gallop. ABDOMEN: Soft, nontender, not distended, normoactive bowel sounds, no guarding, no rebound, no masses. \ UPPER EXTREMITIES: 2+ pulses, cool. No cyanosis. No clubbing. No peripheral edema. LOWER EXTREMITIES: 2+ pulses, cool. No calf tenderness. No peripheral edema. NEUROLOGICAL: Normal speech. PSYCHIATRIC: Cooperative. Good eye contact. Appropriate mood and affect. SKIN: cool peripheral extremities, dry ASSESSMENT/PLAN: 62 year old M with pmh of cirrhosis, hepatitis C, GERD, CKD stage 3, IVDA, HTN, pancreatic insufficiency, rectal variceal bleeding, bph, and seizure d/o presented with rectal bleeding during colonoscopy placed into observation for further monitoring #Rectal bleeding s/p colonoscopy in setting of chronic liver disease, DDx: Rectal varicies, supratheraputic INR, aneurysm, thrombocytopenia -GI consult, Dr. Parham -Clear liquid diet -CBC q6h, if H/H <7 or patient is symptomatic, transfuse as needed -NS @ 100 cc/hr -Monitor for further episodes of bleeding -If INR >1.5, will give FFP and vitamin K -Monitor vital signs, maintain BP > 90/60 -PT/INR, CBC, CMP pending -Type and screen pending #COPD, stable -continue symbicort #Seizure d/o -continue keppra 500 mg bid #Pancreatic insufficency -continue pancreatic enzymes #BPH -continue flomax and oxybutynin #HTN -continue lisinopril #GERD -continue protonix #CKD stage 3 -cmp pending -avoid nephrotoxic medications, no nsaids -monitor cr, urine output #FEN/GI -NS @ 100 cc/hr -will monitor -clear liquid diet #PPx -SCDs -protonix Dispo: M/S Obs Visit type - Emergency Visit Emergency Visit: No - New Patient This patient is new to me today: Yes Date on this admission: 11/22/17 - Critical Care Critical Care patient: No Hospitalist Screening - Colonoscopy Questionnaire Colonoscopy Questionnaire: Colonoscopy Questionnaire - Patient: 50 - 75 years old and never had a screening colonoscopy: No History of colon or rectal polyps, or CA: Unknown History of IBD, Crohn's disease or UC: Unknown History of abdominal radiation therapy as a child: Unknown - Relative: 1 with colon or rectal CA, or polyps at age 60 or younger: Unknown Colon or rectal CA diagnosed at age 45 or younger: Unknown Multiple relatives with colon or rectal CA: Unknown - Outcome: Screening Result: Negative Screen
[2017-11-22 14:37] LABS: INR 1.11 (0.82-1.09); PROTHROMBIN TIME (PATIENT) 12.5 SEC (9.7-13.0)
[2017-11-22 15:16] LABS: ALBUMIN 2.8 g/dl (3.4-5.0); ALK PHOS 144 U/L (45-117); ANION GAP 6 (8-16); BILIRUBIN,TOTAL 0.8 mg/dL (0.2-1.0); BLOOD UREA NITROGEN 13 mg/dL (7-18); CALCIUM 8.1 mg/dL (8.5-10.1); CHLORIDE 112 mmol/L (98-107); CO2 24 mmol/L (21-32); CREATININE 1.4 mg/dL (0.7-1.3); GLUCOSE,RANDOM 83 mg/dL (74-106); POTASSIUM 4.4 mmol/L (3.5-5.1); SGOT/AST 43 U/L (15-37); SGPT/ALT 31 U/L (12-78); SODIUM 142 mmol/L (136-145); TOT PROT 7.8 g/dl (6.4-8.2)
--- NOTE | 2017-11-22 16:32 | CON.GI ---
Consult Consult Specialty:: GI Referred by:: Hospitalist Service Reason for Consultation:: Cirrhosis / rectal bleed - History of Present Illness Chief Complaint: S/P colonoscopy with rectal bleeding History of Present Illness: 62M whom I recently met in office after he was referred for evaluation of guaiac + stool. He has a history of HCV that was treated at the [facility] and has h/o alcohol abuse with sequela of cirrhosis. He was guaiac negative when I saw him in office and he gave no history of overt GI bleeding. Hgb last week was 13. He underwent colonoscopy today for evaluation of guaiac positive stool. He had a fair colon prep, two small sigmoid polyps were removed and there were tow patches of erythematous rectal mucosa that were biopsied. One of the biopsy sites in the rectum developed active bright red bleeding. This was stopped through tamponade with the tip of the endoscope and placement of two endoclips. His vitals remained stable and he denied any focal complaints. - History Source History Provided By: Patient Limitations to Obtaining History: No Limitations - Past Medical History [employer]: Yes: Other (HE) Gastrointestinal: Yes: Esophageal Varices (Unclear by his history) Hepatobiliary: Yes: Cirrhosis Renal/: Yes: Renal Inusuff - Alcohol/Substance Use Hx Alcohol Use: Yes (previous alcohol abuse) History of Substance Use: reports: Cocaine, Heroin - Smoking History Smoking history: Former smoker Have you smoked in the past 12 months: No Aproximately how many cigarettes per day: 3 If you are a former smoker, when did you quit?: 2001 - Social History Usual Living Arrangement: Alone ADL: Support Services Place of : [facility] Home Medications - Allergies Allergies/Adverse Reactions: Allergies Allergy/AdvReac Type Severity Reaction Status Date / Time Penicillins Allergy Verified 11/16/17 12:56 aspirin AdvReac Intermediate Verified 11/16/17 12:56 - Home Medications Home Medications: Ambulatory Orders Folic Acid 1 mg PO DAILY 11/29/16 Lisinopril 10 mg PO DAILY 11/29/16 Vit B Comp/C/Folic/Iron/Vit E [Vitamin B Complex Tablet] 1 each PO DAILY levETIRAcetam [Keppra -] 500 mg PO BID tablet 12/06/16 Budesonide/Formeterol Fumarate [SYMBICORT 160/4.5mcg -] 1 inh PO BID 11/16/17 Cholecalciferol (Vitamin D3) [Vitamin D3 -] 2,000 unit PO DAILY 11/16/17 Lipase/Protease/Amylase [Kwame Curry 36,000 Units Capsule] 1 each PO TID 11/16/17 Oxybutynin Chloride [Oxybutynin Chloride ER] 10 mg PO DAILY 11/16/17 Ropinirole HCl [Requip] 0.25 mg PO DAILY 11/16/17 Tamsulosin HCl [Flomax -] 0.4 mg PO BID 11/16/17 Family Disease History - Family Disease History Other Family History: No family history of colorectal cancer or liver disease Review of Systems - Review of Systems Constitutional: denies: Chills Cardiovascular: denies: Chest Pain Respiratory: denies: SOB Gastrointestinal: reports: Rectal Bleeding (as described above). denies: Abdominal Pain, Melena, Nausea, Vomiting, Vomiting Blood Physical Exam-GI Vital Signs: Vital Signs Temperature 97.8 F 11/22/17 15:18 Pulse Rate 61 11/22/17 15:18 Respiratory Rate 18 11/22/17 15:18 Blood Pressure 161/100 11/22/17 15:18 O2 Sat by Pulse Oximetry (%) 100 11/22/17 15:18 Constitutional: Yes: Calm Eyes: No: Sclera Icterus Cardiovascular: Yes: Regular Rate and Rhythm Respiratory: Yes: CTA Bilaterally Gastrointestinal Inspection: No: Distention ...Auscultate: Yes: Normoactive Bowel Sounds ...Palpate: No: Tenderness ...Percussion: No: Tympanitic ...Rectal Exam: Yes: Other (Performed prior to colonoscopy. enlarged prostate) Edema: No (No LE edema) Neurological: Yes: Alert, Oriented. No: Asterixis Labs: CBC, BMP 11/22/17 14:00 11/22/17 14:00 INR, PTT INR 1.11 (0.82-1.09) 11/22/17 14:00 Laboratory Tests 07/15/17 11/16/17 11:50 15:08 Tumor Marker AFP 2.7 2.9 Problem List - Problems (1) Rectal bleed Assessment/Plan: Unclear if the erythematous patch was just overlying a small highly vascular area, underlying hemorrhoid or less likely rectal varix. there were no overt rectal varices noted on examination of the rectum Plan for now: Clear liquids tonight and advance if no further bleeding in AM Is scheduled for EGD next week to screen for varices Patient counseled in office regarding his liver disease, If active bleeding, transfer to ICU setting. Code(s): K62.5 - HEMORRHAGE OF ANUS AND RECTUM
[2017-11-22] MEDS: PANTOPRAZOLE SODIUM 40 MG VIAL IVPUSH SCH (17:18)
[2017-11-22 18:21] LABS: HEMATOCRIT 35.1 % (35.4-49); HEMOGLOBIN 11.7 GM/dL (11.7-16.9); MCHC 33.4 g/dl (32.0-35.9); MEAN CELL VOLUME 86.8 fl (80-96); MEAN PLT VOLUME 9.9 fl (7.5-11.1); PLATELET COUNT 99 K/MM3 (134-434); RBC 4.05 M/mm3 (4.00-5.60); RDW 17.3 % (11.9-15.9); WHITE BLOOD COUNT 6.1 K/mm3 (4.0-10.0)
--- NOTE | 2017-11-22 19:08 | PN ---
Teaching Attending Note Name of Resident: Clyde Fung ATTENDING PHYSICIAN STATEMENT I saw and evaluated the patient. I reviewed the resident's note and discussed the case with the resident. I agree with the resident's findings and plan as documented. SUBJECTIVE: Patient is a 62yo male with PMHx of HCV, Alcohol abuse; liver cirrhosis was in endoscopy suite today where 2 small sigmoid polyps were removed and biopsied as per GI, one of the site of the biopsy developed active bright red, bleeding. Patient denies any shortness of breath, No dizziness. Denies any loss of consciousness. OBJECTIVE: Vital Signs Temperature 98.0 F 11/22/17 18:00 Pulse Rate 57 L 11/22/17 18:00 Respiratory Rate 18 11/22/17 18:00 Blood Pressure 146/93 11/22/17 18:00 O2 Sat by Pulse Oximetry (%) 100 11/22/17 15:18 GENERAL: Awake, alert, and fully oriented, in no acute distress. +appears uncomfortable in bed HEAD: Normal with no signs of trauma. EYES: Pupils equal, round and reactive to light, Extraocular movements intact, sclera anicteric, conjunctiva clear. EARS, NOSE, THROAT: Oropharynx clear without exudates. Moist mucous membranes. LUNGS: Breath sounds equal, clear to auscultation bilaterally. No wheezes, and no crackles. No accessory muscle use. HEART: Regular rate and rhythm, normal S1 and S2 without murmur, rub or gallop. ABDOMEN: Soft, nontender, not distended, normoactive bowel sounds, no guarding, no rebound, no masses. \ EXTREMITIES: 2+ pulses, cool. No cyanosis. No clubbing. No peripheral edema. NEUROLOGICAL: Normal speech. PSYCHIATRIC: Cooperative. Good eye contact. Appropriate mood and affect. SKIN: cool peripheral extremities, dry CBCD WBC 6.1 K/mm3 (4.0-10.0) 11/22/17 18:00 RBC 4.05 M/mm3 (4.00-5.60) 11/22/17 18:00 Hgb 11.7 GM/dL (11.7-16.9) 11/22/17 18:00 Hct 35.1 % (35.4-49) L 11/22/17 18:00 MCV 86.8 fl (80-96) 11/22/17 18:00 MCHC 33.4 g/dl (32.0-35.9) 11/22/17 18:00 RDW 17.3 % (11.9-15.9) H 11/22/17 18:00 Plt Count 99 K/MM3 (134-434) L 11/22/17 18:00 MPV 9.9 fl (7.5-11.1) 11/22/17 18:00 CMP Sodium 142 mmol/L (136-145) 11/22/17 14:00 Potassium 4.4 mmol/L (3.5-5.1) 11/22/17 14:00 Chloride 112 mmol/L (98-107) H 11/22/17 14:00 Carbon Dioxide 24 mmol/L (21-32) 11/22/17 14:00 Anion Gap 6 (8-16) L 11/22/17 14:00 BUN 13 mg/dL (7-18) 11/22/17 14:00 Creatinine 1.4 mg/dL (0.7-1.3) H 11/22/17 14:00 Creat Clearance w eGFR 51.18 (>60) 11/22/17 14:00 Random Glucose 83 mg/dL (74-106) 11/22/17 14:00 Calcium 8.1 mg/dL (8.5-10.1) L 11/22/17 14:00 Total Bilirubin 0.8 mg/dL (0.2-1.0) 11/22/17 14:00 AST 43 U/L (15-37) H 11/22/17 14:00 ALT 31 U/L (12-78) D 11/22/17 14:00 Alkaline Phosphatase 144 U/L (45-117) H D 11/22/17 14:00 Total Protein 7.8 g/dl (6.4-8.2) 11/22/17 14:00 Albumin 2.8 g/dl (3.4-5.0) L 11/22/17 14:00 Current Medications Generic Name Dose Route Start Last Admin Trade Name Freq PRN Reason Stop Dose Admin Budesonide/Formoterol Fumarate 1 puff 11/22/17 22:00 Symbicort 160/4.5mcg - IH BID PIERO Folic Acid 1 mg 11/23/17 10:00 Folic Acid - PO DAILY PIERO Sodium Chloride 1,000 mls @ 100 mls/hr 11/22/17 14:15 11/22/17 17:18 Normal Saline - IV Not Given ASDIR PIERO Levetiracetam 500 mg 11/22/17 22:00 Keppra - PO BID PIERO Lisinopril 10 mg 11/23/17 10:00 Prinivil PO DAILY [facility] Pancrelipase 1 cap 11/23/17 08:00 Kwame Curry 36,000 Units Capsule PO TIDCM [facility] Pantoprazole Sodium 40 mg 11/22/17 18:00 11/22/17 17:18 Protonix Iv IVPUSH 40 mg DAILY [facility] Administration Ropinirole HCl 0.25 mg 11/23/17 10:00 Requip - PO DAILY [facility] Solifenacin 5 mg 11/23/17 10:00 Vesicare - PO DAILY [facility] Tamsulosin HCl 0.4 mg 11/22/17 22:00 Flomax - PO BID [facility] Home Medications Medication Instructions Recorded Folic Acid 1 mg PO DAILY 11/29/16 Lisinopril 10 mg PO DAILY 11/29/16 Vit B Comp/C/Folic/Iron/Vit E 1 each PO DAILY 11/29/16 [Vitamin B Complex Tablet] levETIRAcetam [Keppra -] 500 mg PO BID tablet 12/06/16 Budesonide/Formeterol Fumarate 1 inh PO BID 11/16/17 [SYMBICORT 160/4.5mcg -] Cholecalciferol (Vitamin D3) 2,000 unit PO DAILY 11/16/17 [Vitamin D3 -] Lipase/Protease/Amylase [Kwame Curry 1 each PO TID 11/16/17 36,000 Units Capsule] Oxybutynin Chloride [Oxybutynin 10 mg PO DAILY 11/16/17 Chloride ER] Ropinirole HCl [Requip] 0.25 mg PO DAILY 11/16/17 Tamsulosin HCl [Flomax -] 0.4 mg PO BID 11/16/17 ASSESSMENT AND PLAN: Patient is a 62yo male with PMHx of HCV, Alcohol abuse; liver cirrhosis was in endoscopy suite today where 2 small sigmoid polyps were removed and biopsied as per GI, one of the site of the biopsy developed active bright red, bleeding. Patient denies any shortness of breath, No dizziness. Denies any loss of consciousness. # Acute Rectal bleed per rectum , will monitor H/h, protonix IV Daily , clears, GI on the case , advance if no further bleed in am. If active bleeding, transfer patient to ICU , type and screen. If no further bleed will discuss in am with Dr. bone for possible discharge. DVT Px: SCDs
[2017-11-22] MEDS ORDERED: TAMSULOSIN HCL 0.4 MG CAP.ER.24H (FP) PO SCH (22:00)
[2017-11-22] MEDS: levETIRAcetam 500 MG TABLET (FP) PO SCH (22:18)
[2017-11-22] MEDS: BUDESONIDE/FORMETEROL FUMARATE 160/4.5 mcg INHALER IH SCH (22:52)
[2017-11-23] MEDS ORDERED: TAMSULOSIN HCL 0.4 MG CAP.ER.24H (FP) PO SCH (07:13)
--- NOTE | 2017-11-23 08:48 | PN ---
GI Progress Note Subjective: No rectal bleeding reported No focal complaints - Objective Vital Signs: Vital Signs Temperature 98.3 F 11/23/17 06:00 Pulse Rate 83 11/23/17 06:00 Respiratory Rate 18 11/23/17 06:00 Blood Pressure 127/74 11/23/17 06:00 O2 Sat by Pulse Oximetry (%) 100 11/22/17 15:18 Constitutional: Calm Eyes: No: Sclera Icterus Cardiovascular: Yes: Regular Rate and Rhythm Gastrointestinal Inspection: No: Distention ...Auscultate: Yes: Normoactive Bowel Sounds ...Palpate: No: Tenderness Edema: No (No LE edema) Neurological: Yes: Alert, Oriented Labs: AM CBC pending Problem List - Problems (1) Rectal bleed Assessment/Plan: Resolved rectal bleeding s/p endoclip of rectal biopsy site Awaiting CBC Added MiraLAX 17g once daily to regimen to facilitate softer BM's Scheduled for EGD next tuesday as outpatient Advanced diet No objection to d/c home today if no further bleeding this morning Code(s): K62.5 - HEMORRHAGE OF ANUS AND RECTUM
[2017-11-23 08:52] LABS: BASO % 0.8 % (0-2.0); EOS % 2.1 % (0-4.5); HEMATOCRIT 31.3 % (35.4-49); HEMOGLOBIN 10.3 GM/dL (11.7-16.9); LYMPH % 21.8 % (8-40); MCH 28.9 pg (25.7-33.7); MEAN CELL VOLUME 87.6 fl (80-96); MEAN PLT VOLUME 9.2 fl (7.5-11.1); MONO % 16.9 % (3.8-10.2); NEUT % 58.4 % (42.8-82.8); PLATELET COUNT 88 K/MM3 (134-434); RBC 3.57 M/mm3 (4.00-5.60); RDW 17.3 % (11.9-15.9); WHITE BLOOD COUNT 5.5 K/mm3 (4.0-10.0)
[2017-11-23 09:24] LABS: ALBUMIN 2.5 g/dl (3.4-5.0); ALK PHOS 117 U/L (45-117); ANION GAP 5 (8-16); BILIRUBIN,TOTAL 0.9 mg/dL (0.2-1.0); BLOOD UREA NITROGEN 13 mg/dL (7-18); CALCIUM 7.8 mg/dL (8.5-10.1); CHLORIDE 111 mmol/L (98-107); CO2 25 mmol/L (21-32); CREATININE 1.4 mg/dL (0.7-1.3); GLUCOSE,RANDOM 90 mg/dL (74-106); POTASSIUM 3.9 mmol/L (3.5-5.1); SGOT/AST 35 U/L (15-37); SGPT/ALT 28 U/L (12-78); SODIUM 141 mmol/L (136-145)
[2017-11-23] MEDS ORDERED: PT OWN MED DRAWER 7, Y5N ONE ×2 (09:27→12:39)
[2017-11-23] MEDS: levETIRAcetam 500 MG TABLET (FP) PO SCH (09:34)
[2017-11-23] MEDS: LIPASE/PROTEASE/AMYLASE 36,000 UNIT CAPSULE PO SCH ×2 (09:35→12:41)
[2017-11-23] MEDS: PANTOPRAZOLE SODIUM 40 MG VIAL IVPUSH SCH ×2 (09:35→09:52)
[2017-11-23] MEDS ORDERED: rOPINIRole HCL 0.25 MG TABLET PO SCH (10:00)
[2017-11-23] MEDS ORDERED: PANTOPRAZOLE 40 MG TABLET (FP) PO SCH (10:00)
[2017-11-23] MEDS ORDERED: FOLIC ACID 1 MG TABLET (FP) PO SCH (10:00)
[2017-11-23] MEDS ORDERED: POLYETHYLENE GLYCOL 3350 119 GM BTL PO SCH (10:00)
[2017-11-23] MEDS ORDERED: LISINOPRIL 10 MG TABLET (FP) PO SCH (10:00)
[2017-11-23] MEDS ORDERED: SOLIFENACIN SUCCINATE 5 MG TAB (FP) PO SCH (10:00)
[2017-11-23] MEDS: BUDESONIDE/FORMETEROL FUMARATE 160/4.5 mcg INHALER IH SCH (10:15)
--- NOTE | 2017-11-23 11:26 | EKG ---
Test Reason : Blood Pressure : / mmHG Vent. Rate : 071 BPM Atrial Rate : 071 BPM P-R Int : 160 ms QRS Dur : 096 ms QT Int : 412 ms P-R-T Axes : 077 003 071 degrees QTc Int : 447 ms NORMAL SINUS RHYTHM SEPTAL INFARCT , AGE UNDETERMINED ABNORMAL ECG WHEN COMPARED WITH ECG OF 16-NOV-2017 13:26, PREMATURE VENTRICULAR COMPLEXES ARE NO LONGER PRESENT SEPTAL INFARCT IS NOW PRESENT Confirmed by ETHEL BOYD, CHEIKH ([id number]) on 11/23/2017 11:26:38 AM Referred By: Herberth Alonzo Confirmed By:CHEIKH DAVENPORT MD
[2017-11-23 14:46] VITALS: BP 153/89; PULSE 83; TEMP 98
--- NOTE | 2017-11-23 15:01 | DS ---
Physical Exam: Selected Entries 11/23/17 14:45 Temperature 98.0 F Pulse Rate 83 Respiratory 18 Rate Blood Pressure 153/89 Laboratory Tests 11/22/17 11/22/17 11/23/17 14:00 18:00 08:10 WBC 5.3 5.5 Hgb 11.0 L D 11.7 10.3 L D Hct 33.3 L D 35.1 L 31.3 L Plt Count 88 L HOSPITAL COURSE: Date of Admission:11/22/17 Date of Discharge: 11/23/17 62 year old M with pmh of cirrhosis, hepatitis C, GERD, CKD stage 3, IVDA, HTN, pancreatic insufficiency, rectal variceal bleeding, bph, and seizure d/o presented with rectal bleeding during colonoscopy. During procedure, patient found to have erythematous mucosa, which was biopsied. Patient had significant bleeding after biopsy. Hemostasis was achieved with endoclips. Patient was observed for further bleeding after procedure. No further bleeding noted. Patient's h/h stable. No alterations in the hemodynamics. Patient will f/u outpt with pcp and GI for biopsy results and further workup with EGD. Minutes to complete discharge: 38 Discharge Summary Reason For Visit: OTHER FECAL ABNORMALITIES & CIRRHOSIS OF LIVER Current Active Problems Rectal bleed (Acute) Condition: Improved - Instructions Diet, Activity, Other Instructions: You were observed in the hospital for bleeding during your colonoscopy. The bleeding was clipped and your blood counts have been stable. Please follow up with your pcp and GI doctor within 1 week. You a scheduled for EGD next tuesday as outpatient with Dr. Alonzo. Contact information has been provided, please call to make an appointment. Continue your home medications as prescribed. Take Miralax, can be bought over the counter for have softer bowel movements. Make sure to drink plenty of fluids to stay hydrated. If you have chest pain, shortness of breath, large bloody bowel movements, loss of consciousness or any new/worsening symptoms please come back to the hospital immediately. Take miralax to soften your stool and avoid constipation . your endoscopy is scheduled for next Tuesday Referrals: Rangel Bernard MD [Staff Physician] - 1 Week Sonny Alonzo DO [Staff Physician] - 1 Week Disposition: HOME - Home Medications Comprehensive Discharge Medication List: Ambulatory Orders Folic Acid 1 mg PO DAILY 11/29/16 Lisinopril 10 mg PO DAILY 11/29/16 Vit B Comp/C/Folic/Iron/Vit E [Vitamin B Complex Tablet] 1 each PO DAILY levETIRAcetam [Keppra -] 500 mg PO BID tablet 12/06/16 Budesonide/Formeterol Fumarate [SYMBICORT 160/4.5mcg -] 1 inh PO BID 11/16/17 Cholecalciferol (Vitamin D3) [Vitamin D -] 2,000 unit PO DAILY 11/16/17 Lipase/Protease/Amylase [Creon Dr 36,000 Units Capsule] 1 each PO TID 11/16/17 Oxybutynin Chloride [Oxybutynin Chloride ER] 10 mg PO DAILY 11/16/17 Ropinirole HCl [Requip] 0.25 mg PO DAILY 11/16/17 Tamsulosin HCl [Flomax -] 0.4 mg PO BID 11/16/17 Polyethylene Glycol 3350 [Miralax 119 gm Btl -] 17 gm PO DAILY #1 bottle Ranitidine HCl [Zantac] 150 mg PO BID #60 tablet 11/23/17 This patient is new to me today: No Emergency Visit: Yes Care time: The patient presented to the Emergency Department on the above date and was hospitalized for further evaluation of their emergent condition. Critical Care patient: No - Discharge Referral Referred to [facility] Med [facility].: No
--- NOTE | 2017-11-23 15:01 | PN ---
Teaching Attending Note Name of Resident: Clyde Fung ATTENDING PHYSICIAN STATEMENT I saw and evaluated the patient. I reviewed the resident's note and discussed the case with the resident. I agree with the resident's findings and plan as documented. SUBJECTIVE: No fever or chills, no abd pain, one liquid green bowel movement this morning . no rectal bleed OBJECTIVE: NAD Cv: Regularly irreg , 3/6 SM at LLSb Abd: soft, Nd, NL BS , NT Ext : no edema ASSESSMENT AND PLAN: 62 y/o man with h/o Hep C , cirrhosis , ETOH abuse who presented after developing rectal bleed due to polyp biopsy . 1- Lower GI bleed. resolved . HB slightly dropped but on IVF. stable hemodynamically cont diet as tolerated f/u with GI for bx results and repeat blood work EGD in 1 week as scheduled by GI 2- H/o HEp C and cirrhosis . f/u with GI . dispo : dc home
--- NOTE | 2017-11-24 15:42 | PATH ---
Surgical Pathology Report Patient Name: COLTON VALENTINO [facility]. Rec. #: [id number] /Age/Gender: 1955 (Age: 62) / M Account: [id number] Location: U-ENDOSCOPY Taken: 11/22/2017 Received: 11/22/2017 Reported: 11/24/2017 Physicians: Alexis Alonzo D.O. Specimen(s) Received A: BX SIGMOID COLON POLYPS B: BX RECTUM Clinical History Fecal abnormalities, abnormal liver function test Postoperative diagnosis: Colon polyp, bleeding Final Diagnosis A. SIGMOID COLON, POLYPS, BIOPSY: HYPERPLASTIC POLYPS B. RECTUM, BIOPSY: COLONIC/RECTAL MUCOSA SHOWING MILD SURFACE HYPERPLASTIC CHANGE. Electronically Signed Ama Artis M.D. Gross Description A. Received in formalin, labeled "biopsy sigmoid colon polyps" are 3 maher, irregular portions of soft tissue ranging from 0.1-0.2 cm. in greatest dimension. The specimens are submitted in toto in one cassette. B. Received in formalin, labeled "biopsy rectum" are 2 maher, irregular portions of soft tissue averaging 0.2 cm. in greatest dimension. The specimens are submitted in toto in one cassette. /11/22/2017 saudi11/22/2017
--- NOTE | 2017-11-30 13:09 | PN ---
Progress Note (short form) - Note Progress Note: Spoke with his son Pravin via telephone today Mr. Lopez gave me permission to speak to him earlier today Explained diagnosis of cirrhosis, varices, his father's continued drug use. Made him aware that chronic liver disease and complications from it can be life threatening. Problem List - Problems (1) Rectal bleed Code(s): K62.5 - HEMORRHAGE OF ANUS AND RECTUM
== END 2017-11-23 20:11 | disposition home or self-care (01) ==
LOC: JASU-ENDO 10:55 → SUATTDRO 10:55 → J8W 15:00 → JASU-ENDO 11-23 20:11
PROVIDERS: ATTEND Internal Medicine
PROC: 0DBN8ZX Excision of Sigmoid Colon, Via Natural or Artificial Opening Endoscopic, Diagnostic (ICD-10-PCS; 2017-11-22)
PROC: 0DBP8ZX Excision of Rectum, Via Natural or Artificial Opening Endoscopic, Diagnostic (ICD-10-PCS; principal; 2017-11-22 12:45)
DX: K63.5 Polyp of colon (principal); K62.5 Hemorrhage of anus and rectum; R19.5 Other fecal abnormalities; B18.2 Chronic viral hepatitis C; K74.60 Unspecified cirrhosis of liver; K21.9 Gastro-esophageal reflux disease without esophagitis; I12.9 Hypertensive chronic kidney disease with stage 1 through stage 4 chronic kidney disease, or unspecified chronic kidney disease; N18.3 Chronic kidney disease, stage 3 (moderate); N40.0 Benign prostatic hyperplasia without lower urinary tract symptoms; G40.909 Epilepsy, unspecified, not intractable, without status epilepticus; F10.10 Alcohol abuse, uncomplicated
CPT/HCPCS: 36415; 71250-TC; 80053; 85025; 85027; 85610; 86850; 86900; 86901; 88305-TC; 93005; 93010

== ENCOUNTER 2017-11-29 11:31 | Observation (INO) | payer OTHER ==
[2017-11-29 11:54] VITALS: BMI 24.1
[2017-11-29 11:55] LABS: BASO % 1.4 % (0-2.0); EOS % 6.8 % (0-4.5); HEMATOCRIT 31.7 % (35.4-49); HEMOGLOBIN 10.7 GM/dL (11.7-16.9); MCHC 33.9 g/dl (32.0-35.9); MEAN CELL VOLUME 88.3 fl (80-96); MEAN PLT VOLUME 8.9 fl (7.5-11.1); MONO % 17.5 % (3.8-10.2); NEUT % 52.3 % (42.8-82.8); PLATELET COUNT 103 K/MM3 (134-434); RBC 3.59 M/mm3 (4.00-5.60); RDW 17.3 % (11.9-15.9); WHITE BLOOD COUNT 5.5 K/mm3 (4.0-10.0)
[2017-11-29 12:08] LABS: ACTIVATED PTT 34.8 SECONDS (26.9-34.4)
[2017-11-29 12:15] LABS: INR 1.16 (0.82-1.09); PROTHROMBIN TIME (PATIENT) 13.1 SEC (9.7-13.0)
[2017-11-29] MEDS ORDERED: LIDOCAINE HCL/PF 2% SDV 5ML VIAL ONE (12:24)
[2017-11-29] MEDS ORDERED: PROPOFOL 20 ML ONE ×2 (12:24)
--- NOTE | 2017-11-29 14:16 | HP ---
<Myra Lux - Last Filed: 11/29/17 15:52> CHIEF COMPLAINT: GI bleeding PCP: Dr Lopez HISTORY OF PRESENT ILLNESS: The patient is a 62 year old male with pmh of cirrhosis, hepatitis C, GERD, CKD stage 3, h/o IVDA, cocaine use, HTN, pancreatic insufficiency, bph, and seizure disease, presented to the hospital for upper endoscopy. During procedure, he was found to have esophageal varices that were banded. No bleeding was noted. The patient was admitted to be observed for further bleeding after procedure in light of bradycardia and cocaine use (last one last week), that would prevent to treat the patient with b blockers. He was recently discharged from [facility] for rectal bleeding during colonoscopy, 11/23/17. When I saw the patient after endoscopy, he was complaining of difficulty urinating that started after the procedure. He denies nausea, vomiting, bleeding , diarrhea, constipation. He also denies fever, chills, night sweats, chest pain , sob, blood in urine. He doesn't know his home medications but follows [facility] 3 x week where he is getting help with that. History was taken from the patient as well as from medical records as the patient is poor historian. PAST MEDICAL HISTORY: as above PAST SURGICAL HISTORY: none Social History: Smoking:former smoker, quit in 2017, 1/2 pack/day for 40 years Alcohol:quit in 2016 Drugs: heroin, speedballs, intranasal cocaine- last time week ago lives alone and uses walker. Family History: Mother: none Father: ESRD, on HD brother: sickle cell disease children healthy Allergies Penicillins Allergy (Verified 11/16/17 12:56) aspirin Adverse Reaction (Intermediate, Verified 11/16/17 12:56) HOME MEDICATIONS: Home Medications Medication Instructions Recorded Folic Acid 1 mg PO DAILY 11/29/16 Lisinopril 10 mg PO DAILY 11/29/16 Vit B Comp/C/Folic/Iron/Vit E 1 each PO DAILY 11/29/16 [Vitamin B Complex Tablet] levETIRAcetam [Keppra -] 500 mg PO BID tablet 12/06/16 Budesonide/Formeterol Fumarate 1 inh PO BID 11/16/17 [SYMBICORT 160/4.5mcg -] Cholecalciferol (Vitamin D3) 2,000 unit PO DAILY 11/16/17 [Vitamin D -] Lipase/Protease/Amylase [Creon Dr 1 each PO TID 11/16/17 36,000 Units Capsule] Oxybutynin Chloride [Oxybutynin 10 mg PO DAILY 11/16/17 Chloride ER] Ropinirole HCl [Requip] 0.25 mg PO DAILY 11/16/17 Tamsulosin HCl [Flomax -] 0.4 mg PO BID 11/16/17 Polyethylene Glycol 3350 [Miralax 17 gm PO DAILY #1 bottle 11/23/17 119 gm Btl -] Ranitidine HCl [Zantac] 150 mg PO BID #60 tablet 11/23/17 REVIEW OF SYSTEMS CONSTITUTIONAL: Absent: fever, chills, diaphoresis, generalized weakness, HEENT: Absent: rhinorrhea,visual changes CARDIOVASCULAR: Absent: chest pain, syncope, palpitations, irregular heart rate, lightheadedness , peripheral edema RESPIRATORY: Absent: cough, shortness of breath, dyspnea with exertion, orthopnea, wheezing, stridor, hemoptysis GASTROINTESTINAL:abdominal pain, abdominal distension Absent: nausea, vomiting, diarrhea, constipation, melena, hematochezia GENITOURINARY: dysuria, Absent: frequency, urgency, hesitancy, hematuria, flank pain, genital pain MUSCULOSKELETAL: Absent: myalgia, arthralgia, joint swelling, back pain, neck pain ENDOCRINE: Absent: unexplained weight gain, unexplained weight loss, NEUROLOGIC: unsteady gait Absent: headache, focal weakness or paresthesias, dizziness, seizure, PSYCHIATRIC: Absent: anxiety, depression PHYSICAL EXAMINATION Vital Signs - 24 hr 11/29/17 11/29/17 11/29/17 11:40 13:14 13:29 Temperature 97.9 F 97.7 F Pulse Rate 51 L 86 85 Respiratory 14 15 22 Rate Blood Pressure 106/71 133/79 158/89 O2 Sat by Pulse 99 100 100 Oximetry (%) 11/29/17 13:44 Temperature Pulse Rate 80 Respiratory 17 Rate Blood Pressure 152/100 O2 Sat by Pulse 100 Oximetry (%) GENERAL: Awake, alert, and fully oriented, in no acute distress. HEAD: Normal with no signs of trauma. EYES: Extraocular movements intact, sclera anicteric, conjunctiva clear. EARS, NOSE, THROAT: Oropharynx clear without exudates. Moist mucous membranes. NECK: Normal range of motion, supple without lymphadenopathy, JVD, or masses. LUNGS: Breath sounds equal, clear to auscultation bilaterally. No wheezes, and no crackles. No accessory muscle use. HEART: Regular rate and rhythm, normal S1 and S2 without murmur, rub or gallop. ABDOMEN: Tender to palpation in lower abdomen, distended, normoactive bowel sounds, no guarding, no rebound, no masses. Organomegaly not assessed due to distention. MUSCULOSKELETAL: Normal range of motion at all joints. No bony deformities or tenderness. UPPER EXTREMITIES: No peripheral edema. LOWER EXTREMITIES: 2+ pulses, no peripheral edema. NEUROLOGICAL: Normal speech, no facial asymmetry, gait not observed. PSYCHIATRIC: Cooperative. Good eye contact. Appropriate mood and affect. SKIN: Warm, dry, normal turgor, no rashes or lesions noted. Laboratory Results - last 24 hr 11/29/17 11/29/17 11/29/17 11:42 11:42 11:42 WBC 5.5 RBC 3.59 L Hgb 10.7 L Hct 31.7 L MCV 88.3 MCH 30.0 MCHC 33.9 RDW 17.3 H Plt Count 103 L MPV 8.9 Neutrophils % 52.3 Lymphocytes % 22.0 Monocytes % 17.5 H Eosinophils % 6.8 H D Basophils % 1.4 PT with INR 13.10 H INR 1.16 H PTT (Actin FS) 34.8 H Blood Type O POSITIVE Antibody Screen Negative ASSESSMENT/PLAN: The patient is a 62 year old male with pmh of cirrhosis, hepatitis C, GERD, CKD stage 3, h/o IVDA, cocaine use, HTN, pancreatic insufficiency, bph, and seizure disease, presented to the hospital for upper endoscopy. During procedure, he was found to have esophageal varices that were banded. No bleeding was noted. The patient was admitted to be observed for further bleeding after procedure in light of bradycardia and cocaine use (last one last week), that would prevent to treat the patient with b blockers. S/p endoscopy: ( two columns of medium to large varices spanning from 30 cmfrom the incisors to 40 cm just prox. to the GE Junction., two large varices were more distally. 4 bands were applied) -continue Protonix 20 mg daily -NS given in endoscopy -clear liquid diet and then continue full liquid with dinner -no B Blockers -monitor for signs of bleeding -CBC in the morning -discussed with Dr Alexis Parham, will follow up recommendations Liver cirrhosis: -secondary due to Hepatitis C along with history of alcohol abuse. Recently treated at [facility], PCR was undetectable -cont to have GI follow up as outpatient ( US every 6 months and tumor markers) BPH: -the patient has been complaining of urinary retention after the procedure -Bladder scan was ordered as well as staight cath., followed by Mensah catheter. -Flomax 0.4 mg ONCE was ordered and home dose resumed, starting this evening -cont. oxybutynin Bradycardia: -no more episodes after the procedure -will monitor vital signs COPD -stable -continue symbicort Seizures -continue Keppra 500 mg bid Pancreatic insufficency -continue pancreatic enzymes HTN -continue lisinopril in Am when CMP stable CKD stage 3 -cmp pending -avoid nephrotoxic medications, no nsaids -monitor Cr, urine output FEN/GI -no fluids -will monitor -clear liquid diet PPx -SCDs, no Heparin -protonix Dispo: M/S Obs Discussed with Dr Hanna Problem List - Problem (1) Alcoholic cirrhosis Code(s): K70.30 - ALCOHOLIC CIRRHOSIS OF LIVER WITHOUT ASCITES (2) CKD (chronic kidney disease) Code(s): N18.9 - CHRONIC KIDNEY DISEASE, UNSPECIFIED (3) DVT prophylaxis Code(s): [id number] - (4) Hepatitis C Code(s): B19.20 - UNSPECIFIED VIRAL HEPATITIS C WITHOUT HEPATIC COMA (5) Hypertension Code(s): I10 - ESSENTIAL (PRIMARY) HYPERTENSION (6) Rectal bleed Code(s): K62.5 - HEMORRHAGE OF ANUS AND RECTUM (7) Seizure disorder Code(s): G40.909 - EPILEPSY, UNSP, NOT INTRACTABLE, WITHOUT STATUS EPILEPTICUS (8) Substance abuse Code(s): F19.10 - OTHER PSYCHOACTIVE SUBSTANCE ABUSE, UNCOMPLICATED Visit type - Emergency Visit Emergency Visit: No - New Patient This patient is new to me today: Yes Date on this admission: 11/29/17 - Critical Care Critical Care patient: No Hospitalist Screening - Colonoscopy Questionnaire Colonoscopy Questionnaire: Colonoscopy Questionnaire - Patient: 50 - 75 years old and never had a screening colonoscopy: No History of colon or rectal polyps, or CA: No History of IBD, Crohn's disease or UC: No History of abdominal radiation therapy as a child: No - Relative: 1 with colon or rectal CA, or polyps at age 60 or younger: No Colon or rectal CA diagnosed at age 45 or younger: No Multiple relatives with colon or rectal CA: No - Outcome: Screening Result: Negative Screen <Kavitha Hanna - Last Filed: 11/29/17 19:00> patient seen and examined with Dr Fajardo, Agree with above findings and plan of care with exceptions below. O/e: Vss in no acute distress in bed, attempting to urinate Abdomen: soft, mild suprapubic tenderness, NT/ND otherwise Extremities: no edema Chest: CTAB, no rales or wheezing Assessment/Plan: -Esophageal varices s/p banding _-CKD stage III Cr 1.6 -Pancreatic insufficiency -Bradycardia with PVCs GI input appreciated. Monitor overnight and trend CBC in AM. Monitor renal function. Bladder scan and straight cath prn, patient agreable. Resume oxybutynin and flomax. COntinue home meds. Monitor Mg/Phos D/c in 24 hours if h/h stable and no concerns. PLan discussed with patient in detail, and all questions answered. Total admit time 50 min. Hospitalist Screening - Colonoscopy Questionnaire Colonoscopy Questionnaire: Colonoscopy Questionnaire
--- NOTE | 2017-11-29 14:37 | PN ---
Progress Note (short form) - Note Progress Note: EGD complete. copy left in physical chart and to be scanned into [facility]. I discussed findings of esophageal varices with Mr. Lopez. He gives an unclear history as to whether or not he had banding performed in the past. We discussed his cocaines use and that he needs to completely abstain from this as well as other illicit drugs and alcohol. I explained that continued cocaine use prevents the use of beta inocencia as part of treating his esophageal varices. His episodic bradycardia is prohibitive as well and will need to be investigated further. He complained of being unable to pass urine s/p EGD. This is being evaluated by the medical team. He does have a history of BPH.
[2017-11-29] MEDS ORDERED: TAMSULOSIN HCL 0.4 MG CAP.ER.24H (FP) PO ONE (15:15)
[2017-11-29] MEDS: PANTOPRAZOLE 20 MG TABLET (FP) PO SCH (15:33)
[2017-11-29 17:23] LABS: ALBUMIN 2.9 g/dl (3.4-5.0); ALK PHOS 127 U/L (45-117); ANION GAP 6 (8-16); BILIRUBIN,TOTAL 0.7 mg/dL (0.2-1.0); BLOOD UREA NITROGEN 12 mg/dL (7-18); CALCIUM 8.2 mg/dL (8.5-10.1); CHLORIDE 111 mmol/L (98-107); CO2 26 mmol/L (21-32); CREATININE 1.6 mg/dL (0.7-1.3); GLUCOSE,RANDOM 75 mg/dL (74-106); MAGNESIUM 1.9 mg/dL (1.8-2.4); PHOSPHOROUS 3.1 mg/dL (2.5-4.9); POTASSIUM 3.8 mmol/L (3.5-5.1); SGOT/AST 38 U/L (15-37); SGPT/ALT 30 U/L (12-78); SODIUM 143 mmol/L (136-145); TOT PROT 7.7 g/dl (6.4-8.2)
[2017-11-29] MEDS: ACETAMINOPHEN 325 MG TABLET (FP) PO ONE (20:35)
[2017-11-29] MEDS: TAMSULOSIN HCL 0.4 MG CAP.ER.24H (FP) PO SCH (20:35)
[2017-11-29] MEDS: BUDESONIDE/FORMETEROL FUMARATE 160/4.5 mcg INHALER IH SCH (21:04)
[2017-11-29] MEDS: levETIRAcetam 500 MG TABLET (FP) PO SCH (21:04)
[2017-11-29] MEDS ORDERED: BUDESONIDE/FORMETEROL FUMARATE 160/4.5 mcg INHALER IH SCH (22:00)
[2017-11-30] MEDS: TAMSULOSIN HCL 0.4 MG CAP.ER.24H (FP) PO SCH ×2 (07:51→21:21)
[2017-11-30] MEDS: LIPASE/PROTEASE/AMYLASE 36,000 UNIT CAPSULE PO SCH ×3 (07:51→17:48)
--- NOTE | 2017-11-30 08:41 | PN ---
GI Progress Note Subjective: No acute events Had mariano catheter placed for urinary retention Some abdominal cramping, + Flatus - Objective Vital Signs: Vital Signs Temperature 97.8 F 11/30/17 06:38 Pulse Rate 66 11/30/17 06:38 Respiratory Rate 20 11/30/17 06:38 Blood Pressure 122/79 11/30/17 06:38 O2 Sat by Pulse Oximetry (%) 97 11/30/17 06:00 Constitutional: Calm Eyes: No: Sclera Icterus Cardiovascular: Yes: Regular Rate and Rhythm Respiratory: Yes: CTA Bilaterally Gastrointestinal Inspection: No: Distention ...Auscultate: Yes: Normoactive Bowel Sounds ...Palpate: No: Tenderness ...Percussion: No: Tympanitic Edema: No Neurological: Yes: Alert, Oriented Labs: INR 1.16 (0.82-1.09) H 11/29/17 11:42 Hepatic Panel Total Bilirubin 0.7 mg/dL (0.2-1.0) D 11/29/17 16:00 AST 38 U/L (15-37) H 11/29/17 16:00 ALT 30 U/L (12-78) 11/29/17 16:00 Alkaline Phosphatase 127 U/L (45-117) H 11/29/17 16:00 Albumin 2.9 g/dl (3.4-5.0) L 11/29/17 16:00 Problem List - Problems (1) Esophageal varices determined by endoscopy Assessment/Plan: He does not give a history of variceal bleeding in the past. 2 columns of medium to large varices noted on EGD yesterday. Two with red jose sign. s/p band ligation x 4 Given continued cocaine use and episodes of bradycardia, non-selective beta inocencia therapy deferred Will need continued endoscopic ablation as therapy as primary prophylaxis of variceal bleeding Explained this again to Mr. Lopez today. Advised the need for illicit drug cessation and avoidance of alcohol Full liquid diet for 2 more days as outpatient then soft diet Repeat EGD in 2 weeks Code(s): I85.00 - ESOPHAGEAL VARICES WITHOUT BLEEDING (2) Urinary retention Assessment/Plan: Plan per medical team. h/o BPH with elevated baseline creatinine. unclear if any other etiology Code(s): R33.9 - RETENTION OF URINE, UNSPECIFIED (3) Bradycardia Assessment/Plan: Intermittent episodes of bradycardia w/ PAC's / PVC's. Noted prior to procedure and seen on previous EKG. W/U per primary team Code(s): R00.1 - BRADYCARDIA, UNSPECIFIED (4) Chest pain Assessment/Plan: Describes intermittent episodes of left sided chest pain lasting a few seconds. Mr. Lopez's nurse was in the room with me when he described this. She stated that she would tell the medical team this morning. Code(s): R07.9 - CHEST PAIN, UNSPECIFIED
[2017-11-30 09:10] LABS: HEMATOCRIT 34.5 % (35.4-49); HEMOGLOBIN 11.7 GM/dL (11.7-16.9); MCH 29.9 pg (25.7-33.7); MCHC 33.8 g/dl (32.0-35.9); MEAN CELL VOLUME 88.5 fl (80-96); MEAN PLT VOLUME 10.3 fl (7.5-11.1); PLATELET COUNT 113 K/MM3 (134-434); RDW 17.4 % (11.9-15.9); WHITE BLOOD COUNT 6.2 K/mm3 (4.0-10.0)
--- NOTE | 2017-11-30 09:17 | PN ---
<Felisha Carmona - Last Filed: 11/30/17 17:10> Physical Exam: SUBJECTIVE: Patient seen and examined at bedside. Pt s/p esophageal banding. Overnight, c/o abdominal cramping- received Tylenol [id number]. This AM, pt still c /o cramping and lower back pain. Otherwise denies GALE, fever, chills, SOB, or chest pain. OBJECTIVE: Vital Signs Period Temp Pulse Resp BP Sys/Eisenberg Pulse Ox Last 24 Hr 97.7 F-99.4 F 51-86 14-22 106-158/70-100 97-100 GENERAL: The patient is lying down; awake, alert, and fully oriented, in mild distress HEAD: Normal with no signs of trauma. EYES: PERRL, extraocular movements intact, sclera anicteric, conjunctiva clear. ENT: Ears normal, nares patent, oropharynx clear without exudates, dry mucous membranes TEETH: +poor dentition NECK: Trachea midline, supple. LUNGS: Breath sounds equal, clear to auscultation bilaterally, no wheezes, no crackles, no accessory muscle use. HEART: Regular rate and rhythm, S1, S2 without murmur, rub or gallop. ABDOMEN: Soft, nontender, nondistended, normoactive bowel sounds, no guarding, no rebound, no hepatosplenomegaly, no masses. EXTREMITIES: 2+ pulses, warm, well-perfused, no edema. NEUROLOGICAL: Cranial nerves II through XII grossly intact. Normal speech, gait not observed. PSYCH: Normal mood, normal affect. SKIN: Warm, dry, normal turgor, no rashes or lesions noted Laboratory Results - last 24 hr 11/29/17 11/29/17 11/29/17 11:42 11:42 11:42 WBC 5.5 RBC 3.59 L Hgb 10.7 L Hct 31.7 L MCV 88.3 MCH 30.0 MCHC 33.9 RDW 17.3 H Plt Count 103 L MPV 8.9 Neutrophils % 52.3 Lymphocytes % 22.0 Monocytes % 17.5 H Eosinophils % 6.8 H D Basophils % 1.4 PT with INR 13.10 H INR 1.16 H PTT (Actin FS) 34.8 H Sodium Alkaline Phosphatase Total Protein Albumin Blood Type O POSITIVE Antibody Screen Negative 11/29/17 16:00 PTT (Actin FS) Sodium 143 Potassium 3.8 Chloride 111 H Carbon Dioxide 26 Anion Gap 6 L BUN 12 Creatinine 1.6 H Creat Clearance w eGFR 43.87 Random Glucose 75 Calcium 8.2 L Phosphorus 3.1 D Magnesium 1.9 Total Bilirubin 0.7 D AST 38 H ALT 30 Alkaline Phosphatase 127 H Total Protein 7.7 Albumin 2.9 L Blood Type Active Medications Generic Name Dose Route Start Last Admin Trade Name Freq PRN Reason Stop Dose Admin Budesonide/Formoterol Fumarate 2 puff 11/29/17 22:00 11/29/17 21:04 Symbicort 160/4.5mcg - IH 2 puff BID PIERO Administration Cholecalciferol 2,000 unit 11/30/17 10:00 Vitamin D3 - PO DAILY [facility] Folic Acid 1 mg 11/30/17 10:00 Folic Acid - PO DAILY PIERO Levetiracetam 500 mg 11/29/17 22:00 11/29/17 21:04 Keppra - PO 500 mg BID PIERO Administration Lisinopril 10 mg 11/30/17 10:00 Prinivil PO DAILY [facility] Multivitamins 1 each 11/30/17 10:00 Total B With C - PO DAILY [facility] Pancrelipase 1 cap 11/30/17 08:00 11/30/17 07:51 Creon 36,000 Units Capsule PO 1 cap TIDCM PIERO Administration Pantoprazole Sodium 20 mg 11/29/17 14:45 11/29/17 15:33 Protonix - PO 20 mg DAILY PIERO Administration Ropinirole HCl 0.25 mg 11/30/17 10:00 Requip - PO DAILY [facility] Solifenacin 5 mg 11/30/17 10:00 Vesicare - PO DAILY [facility] Tamsulosin HCl 0.4 mg 11/29/17 20:30 11/30/17 07:51 Flomax - PO 0.4 mg BID@0830,2030 PIERO Administration EGD: two columns of medium to large varices spanning from 30 cm from the incisors to 40 cm just prox. to the GE Junction., two large varices distally. 4 bands applied ASSESSMENT/PLAN: 62 y/o M with PMH cirrhosis, hepatitis C, GERD, CKD stage 3, h/o IVDA, cocaine use, HN, pancreatic insufficiency, BPH, and seizure disease, who presented to the hospital for upper endoscopy. Pt s/p variceal banding - Day 1. #s/p variceal banding - Day 1 -Continue protonix 20mg PO qd -Will need continued endoscopic ablation as therapy as primary prophylaxis of variceal bleeding -Full liquid diet for two additional days when d/c as outpatient then soft diet - Post procedural H&H: 11.7/34.5 -GI- -F/u CBC #abdominal cramping s/p food intake -F/u CT abdomen pelvis w/o contrast (no IV contrast- CKD stage 3 - however with PO contrast) -to determine whether any additional pathology #episodic bradycardia -last recorded on admission - HR ~50s -Cardio consult: Dr. Christianson -F/u ECHO -F/u TSH -Holter monitoring r/o syncopal events #hepatic cirrhosis 2/2 Hepatitis C, hx alcohol abuse -recently treated at [facility], PCR was undetectable -will need GI followup as outpt (US every 6 months, AFP, CEA) #BPH -bladder scan, straight cath -With mariano - trial off -Continue tamsulosin 0.4mg PO BID -vesicare 5mg PO qd #COPD -without current complaint -continue symbicort 2 puff IH BID #Seizures -continue Keppra 500 mg BID #Pancreatic insufficency -continue pancreatic enzymes (lipase/protease/amylase) #HTN-controlled -continue lisinopril 10mg PO qd #CKD stage 3 -avoid nephrotoxic medications, no NSAIDs -continue to monitor Cr, urine output #F/E/N -not on IVF currently -monitoring lytes -full liquid diet #PPX DVT: SCD's, no heparin #Dispo in observation Visit type - Emergency Visit Emergency Visit: No - New Patient This patient is new to me today: Yes Date on this admission: 11/30/17 - Critical Care Critical Care patient: No <Rhina Zavala - Last Filed: 12/01/17 18:26> Physical Exam: Agree with the resident's note, cardio consult appreciated.
[2017-11-30] MEDS: FOLIC ACID 1 MG TABLET (FP) PO SCH (09:55)
[2017-11-30] MEDS: PANTOPRAZOLE 20 MG TABLET (FP) PO SCH (09:55)
[2017-11-30] MEDS: levETIRAcetam 500 MG TABLET (FP) PO SCH ×2 (09:55→21:22)
[2017-11-30 09:57] LABS: ANION GAP 7 (8-16); BLOOD UREA NITROGEN 13 mg/dL (7-18); CALCIUM 8.4 mg/dL (8.5-10.1); CHLORIDE 110 mmol/L (98-107); CO2 25 mmol/L (21-32); GLUCOSE,RANDOM 60 mg/dL (74-106); MAGNESIUM 1.9 mg/dL (1.8-2.4); POTASSIUM 4.6 mmol/L (3.5-5.1); SODIUM 142 mmol/L (136-145)
[2017-11-30] MEDS: LISINOPRIL 10 MG TABLET (FP) PO SCH (09:58)
[2017-11-30] MEDS: rOPINIRole HCL 0.25 MG TABLET PO SCH (09:58)
[2017-11-30] MEDS: CHOLECALCIFEROL (VITAMIN D3) 400 UNIT TABLET (FP) PO SCH (09:59)
[2017-11-30] MEDS: BUDESONIDE/FORMETEROL FUMARATE 160/4.5 mcg INHALER IH SCH ×2 (09:59→21:22)
[2017-11-30] MEDS: VITAMIN B COMPLEX W/C COMBO TABLET (FP) PO SCH (09:59)
[2017-11-30] MEDS: SOLIFENACIN SUCCINATE 5 MG TAB (FP) PO SCH (09:59)
[2017-11-30 10:00] LABS: CREATININE 1.6 mg/dL (0.7-1.3); PHOSPHOROUS 3.3 mg/dL (2.5-4.9)
--- NOTE | 2017-11-30 12:24 | PN ---
Teaching Attending Note Name of Resident: Felisha Carmona ATTENDING PHYSICIAN STATEMENT I saw and evaluated the patient. I reviewed the resident's note and discussed the case with the resident. I agree with the resident's findings and plan as documented. SUBJECTIVE: Patient is c/o having abdominal cramps post eating. OBJECTIVE: Vital Signs Temperature 97.8 F 11/30/17 06:38 Pulse Rate 74 11/30/17 10:00 Respiratory Rate 18 11/30/17 10:00 Blood Pressure 112/64 11/30/17 10:00 O2 Sat by Pulse Oximetry (%) 97 11/30/17 06:00 CBCD WBC 6.2 K/mm3 (4.0-10.0) 11/30/17 07:45 RBC 3.90 M/mm3 (4.00-5.60) L 11/30/17 07:45 Hgb 11.7 GM/dL (11.7-16.9) 11/30/17 07:45 Hct 34.5 % (35.4-49) L 11/30/17 07:45 MCV 88.5 fl (80-96) 11/30/17 07:45 MCHC 33.8 g/dl (32.0-35.9) 11/30/17 07:45 RDW 17.4 % (11.9-15.9) H 11/30/17 07:45 Plt Count 113 K/MM3 (134-434) L 11/30/17 07:45 MPV 10.3 fl (7.5-11.1) D 11/30/17 07:45 CMP Sodium 142 mmol/L (136-145) 11/30/17 07:45 Potassium 4.6 mmol/L (3.5-5.1) D 11/30/17 07:45 Chloride 110 mmol/L (98-107) H 11/30/17 07:45 Carbon Dioxide 25 mmol/L (21-32) 11/30/17 07:45 Anion Gap 7 (8-16) L 11/30/17 07:45 BUN 13 mg/dL (7-18) 11/30/17 07:45 Creatinine 1.6 mg/dL (0.7-1.3) H 11/30/17 07:45 Creat Clearance w eGFR 43.87 (>60) 11/29/17 16:00 Random Glucose 60 mg/dL (74-106) L 11/30/17 07:45 Calcium 8.4 mg/dL (8.5-10.1) L 11/30/17 07:45 Total Bilirubin 0.7 mg/dL (0.2-1.0) D 11/29/17 16:00 AST 38 U/L (15-37) H 11/29/17 16:00 ALT 30 U/L (12-78) 11/29/17 16:00 Alkaline Phosphatase 127 U/L (45-117) H 11/29/17 16:00 Total Protein 7.7 g/dl (6.4-8.2) 11/29/17 16:00 Albumin 2.9 g/dl (3.4-5.0) L 11/29/17 16:00 Current Medications Generic Name Dose Route Start Last Admin Trade Name Freq PRN Reason Stop Dose Admin Budesonide/Formoterol Fumarate 2 puff 11/29/17 22:00 11/30/17 09:59 Symbicort 160/4.5mcg - IH 2 puff BID PIERO Administration Cholecalciferol 2,000 unit 11/30/17 10:00 11/30/17 09:59 Vitamin D3 - PO 2,000 unit DAILY PIERO Administration Folic Acid 1 mg 11/30/17 10:00 11/30/17 09:55 Folic Acid - PO 1 mg DAILY PIERO Administration Levetiracetam 500 mg 11/29/17 22:00 11/30/17 09:55 Keppra - PO 500 mg BID PIERO Administration Lisinopril 10 mg 11/30/17 10:00 11/30/17 09:58 Prinivil PO 10 mg DAILY PIERO Administration Multivitamins 1 each 11/30/17 10:00 11/30/17 09:59 Total B With C - PO 1 each DAILY PIERO Administration Pancrelipase 1 cap 11/30/17 08:00 11/30/17 07:51 Kwame Curry 36,000 Units Capsule PO 1 cap TIDCM PIERO Administration Pantoprazole Sodium 20 mg 11/29/17 14:45 11/30/17 09:55 Protonix - PO 20 mg DAILY PIERO Administration Ropinirole HCl 0.25 mg 11/30/17 10:00 11/30/17 09:58 Requip - PO 0.25 mg DAILY PIERO Administration Solifenacin 5 mg 11/30/17 10:00 11/30/17 09:59 Vesicare - PO 5 mg DAILY PIERO Administration Tamsulosin HCl 0.4 mg 11/29/17 20:30 11/30/17 07:51 Flomax - PO 0.4 mg BID@0830,2030 PIERO Administration Home Medications Medication Instructions Recorded Folic Acid 1 mg PO DAILY 11/29/16 Lisinopril 10 mg PO DAILY 11/29/16 Vit B Comp/C/Folic/Iron/Vit E 1 each PO DAILY 11/29/16 [Vitamin B Complex Tablet] levETIRAcetam [Keppra -] 500 mg PO BID tablet 12/06/16 Budesonide/Formeterol Fumarate 1 inh PO BID 11/16/17 [SYMBICORT 160/4.5mcg -] Cholecalciferol (Vitamin D3) 2,000 unit PO DAILY 11/16/17 [Vitamin D -] Lipase/Protease/Amylase [Kwame Dr 1 each PO TID 11/16/17 36,000 Units Capsule] Oxybutynin Chloride [Oxybutynin 10 mg PO DAILY 11/16/17 Chloride ER] Ropinirole HCl [Requip] 0.25 mg PO DAILY 11/16/17 Tamsulosin HCl [Flomax -] 0.4 mg PO BID 11/16/17 Polyethylene Glycol 3350 [Miralax 17 gm PO DAILY #1 bottle 11/23/17 119 gm Btl -] Ranitidine HCl [Zantac] 150 mg PO BID #60 tablet 11/23/17 ASSESSMENT AND PLAN: Cardio to evaluate the patient patient is going for CT scan of abdomen
--- NOTE | 2017-11-30 15:55 | CON.CARD ---
Cardiology Consult (text) - Consultation Consultation Note: Full Consult Dictated IMP: Hep C Cirrhosis Esophageal Varices Cocaine Abuse Incidentally detected Sinus Bradycardia REC: 1. Echo 2. Holter 3. TSH 4. Keep electrolytes normalized 5. I share the same hesitation w/ Dr. Alonzo re use of beta blockers to treat his varices.
--- NOTE | 2017-11-30 16:39 | CONS ---
CARDIOLOGY CONSULTATION DATE OF CONSULTATION: 11/30/2017 CONSULTATION REQUESTED BY: Dr. Parham. REASON FOR EVALUATION: Consultation is requested for evaluation of sinus bradycardia and PVCs. HISTORY PRESENT ILLNESS: The patient is a 62-year-old male with past medical history of alcoholic and hepatitis C cirrhosis, hepatitis C, hypertension, history of seizure disorder, restless leg syndrome, GERD, BPH, COPD, CKD, former smoker, former alcohol abuse, former IV drug abuse with heroin, former cocaine use, last usage 1 week ago. The patient was admitted for upper endoscopy due to guaiac-positive stool which he underwent on November 29, showing large varices, gastritis. During the procedure he was noted to be intermittently bradycardic, sinus bradycardia with PVCs and PACs. Cardiology consultation was therefore obtained. He denies any cardiac history. Denies syncope, denies loss of consciousness, denies previous history of bradycardia. HOME MEDICATIONS: Include Cipro, Ultram, Symbicort, Spiriva, vitamin D3, tramadol, Naprosyn p.r.n., Flonase, Requip, lactulose, Keppra, Flomax, lisinopril, omeprazole and spironolactone. ALLERGIES: PENICILLIN and ASPIRIN. FAMILY HISTORY: Noncontributory. SOCIAL HISTORY: As above. LABORATORY: White count 6, hematocrit 34.5, platelets 113. INR 1.16. Sodium 142, potassium 4.6, creatinine 1.6, magnesium 1.9. PHYSICAL EXAM:Vital Signs: Temperature 97.8, blood pressure 122/79, 97 on room air. Neck: No JVD or bruits.Heart: S1, 2 regular. No murmurs. Chest: Clear. Abdomen: Soft, nontender. Extremities: No edema. There is no EKG in the chart to review. IMPRESSION: 1. Hepatitis C. 2. Cirrhosis. 3. Drug abuse, including recent cocaine use. 4. Incidentally detected sinus bradycardiac and premature ventricular contractions. RECOMMENDATIONS: 1. Echocardiogram. 2. Holter monitor and EKG. 3. Keep electrolytes normalized. 4. I share the same hesitation with Dr. Parham for the use of beta blockers for prophylaxis for variceal bleeding in this patient. Serial banding should be considered. Further recommendations pending above. LIZA MORRIS M.D. [id number]
--- NOTE | 2017-11-30 17:07 | PATH ---
Surgical Pathology Report Patient Name: COLTON VALENTINO [facility]. Rec. #: [id number] /Age/Gender: 1955 (Age: 62) / M Account: [id number] Location: [address] [place] [address]/[facility] Taken: 11/29/2017 Received: 11/29/2017 Reported: 11/30/2017 Physicians: Alexis Alonzo D.O. Specimen(s) Received BX ANTRUM EROSION Clinical History Cirrhosis of liver Postoperative diagnosis: Antral erosions, medium to large esophageal varices Final Diagnosis STOMACH, ANTRUM, BIOPSY:GASTRIC ANTRAL MUCOSA WITH MILD CHRONIC ACTIVE GASTRITIS AND ASSOCIATED FOCAL EROSION. IMMUNOHISTOCHEMICAL STAIN FOR H. PYLORI IS NEGATIVE. Electronically Signed Trang Dey M.D. Gross Description Received in formalin, labeled "biopsy antral erosions" are 2 maher, irregular portions of soft tissue measuring 0.1 and 0.4 cm. in greatest dimension. The specimens are submitted in toto in one cassette. 11/29/2017 [facility]11/29/2017
[2017-11-30] MEDS ORDERED: ACETAMINOPHEN 325 MG TABLET (FP) ONE (21:20)
[2017-11-30] MEDS: ACETAMINOPHEN 325 MG TABLET (FP) PO ONE (21:21)
[2017-11-30] MEDS ORDERED: ACETAMINOPHEN 325 MG TABLET (FP) PO ONE (21:45)
[2017-12-01] MEDS ORDERED: PT OWN MED DRAWER 7, Y5N ONE ×2 (06:36→21:27)
[2017-12-01 07:22] LABS: BASO % 0.8 % (0-2.0); EOS % 3.1 % (0-4.5); HEMATOCRIT 35.2 % (35.4-49); HEMOGLOBIN 11.6 GM/dL (11.7-16.9); LYMPH % 16.5 % (8-40); MCH 29.1 pg (25.7-33.7); MCHC 32.9 g/dl (32.0-35.9); MEAN CELL VOLUME 88.5 fl (80-96); MEAN PLT VOLUME 8.7 fl (7.5-11.1); MONO % 17.5 % (3.8-10.2); NEUT % 62.1 % (42.8-82.8); PLATELET COUNT 104 K/MM3 (134-434); RBC 3.97 M/mm3 (4.00-5.60); RDW 17.5 % (11.9-15.9); WHITE BLOOD COUNT 7.4 K/mm3 (4.0-10.0)
[2017-12-01 08:44] LABS: ANION GAP 5 (8-16); BLOOD UREA NITROGEN 11 mg/dL (7-18); CALCIUM 8.3 mg/dL (8.5-10.1); CHLORIDE 109 mmol/L (98-107); CO2 27 mmol/L (21-32); GLUCOSE,RANDOM 71 mg/dL (74-106); POTASSIUM 4.4 mmol/L (3.5-5.1); SODIUM 141 mmol/L (136-145)
[2017-12-01] MEDS: TAMSULOSIN HCL 0.4 MG CAP.ER.24H (FP) PO SCH ×2 (08:47→21:29)
[2017-12-01] MEDS: LIPASE/PROTEASE/AMYLASE 36,000 UNIT CAPSULE PO SCH ×3 (08:49→17:41)
[2017-12-01 08:54] LABS: CREATININE 1.6 mg/dL (0.7-1.3)
[2017-12-01] MEDS: CHOLECALCIFEROL (VITAMIN D3) 400 UNIT TABLET (FP) PO SCH (09:47)
[2017-12-01] MEDS: PANTOPRAZOLE 20 MG TABLET (FP) PO SCH (09:48)
[2017-12-01] MEDS: SOLIFENACIN SUCCINATE 5 MG TAB (FP) PO SCH (09:48)
[2017-12-01] MEDS: VITAMIN B COMPLEX W/C COMBO TABLET (FP) PO SCH (09:48)
[2017-12-01] MEDS: FOLIC ACID 1 MG TABLET (FP) PO SCH (09:48)
[2017-12-01] MEDS: levETIRAcetam 500 MG TABLET (FP) PO SCH ×2 (09:49→21:29)
[2017-12-01] MEDS: rOPINIRole HCL 0.25 MG TABLET PO SCH (09:50)
[2017-12-01] MEDS: LISINOPRIL 10 MG TABLET (FP) PO SCH (09:50)
[2017-12-01] MEDS: BUDESONIDE/FORMETEROL FUMARATE 160/4.5 mcg INHALER IH SCH ×2 (09:50→21:29)
--- NOTE | 2017-12-01 10:13 | PN ---
Teaching Attending Note Name of Resident: Felisha Carmona ATTENDING PHYSICIAN STATEMENT I saw and evaluated the patient. I reviewed the resident's note and discussed the case with the resident. I agree with the resident's findings and plan as documented. SUBJECTIVE: Patient continues to have mid-epigastric pain. OBJECTIVE: Vital Signs Temperature 98.3 F 12/01/17 08:05 Pulse Rate 75 12/01/17 08:05 Respiratory Rate 20 12/01/17 08:05 Blood Pressure 108/69 12/01/17 08:05 O2 Sat by Pulse Oximetry (%) 96 12/01/17 02:00 CBCD WBC 7.4 K/mm3 (4.0-10.0) 12/01/17 06:40 RBC 3.97 M/mm3 (4.00-5.60) L 12/01/17 06:40 Hgb 11.6 GM/dL (11.7-16.9) L 12/01/17 06:40 Hct 35.2 % (35.4-49) L 12/01/17 06:40 MCV 88.5 fl (80-96) 12/01/17 06:40 MCHC 32.9 g/dl (32.0-35.9) 12/01/17 06:40 RDW 17.5 % (11.9-15.9) H 12/01/17 06:40 Plt Count 104 K/MM3 (134-434) L 12/01/17 06:40 MPV 8.7 fl (7.5-11.1) D 12/01/17 06:40 CMP Sodium 141 mmol/L (136-145) 12/01/17 06:40 Potassium 4.4 mmol/L (3.5-5.1) 12/01/17 06:40 Chloride 109 mmol/L (98-107) H 12/01/17 06:40 Carbon Dioxide 27 mmol/L (21-32) 12/01/17 06:40 Anion Gap 5 (8-16) L 12/01/17 06:40 BUN 11 mg/dL (7-18) 12/01/17 06:40 Creatinine 1.6 mg/dL (0.7-1.3) H 12/01/17 06:40 Creat Clearance w eGFR 43.87 (>60) 11/29/17 16:00 Random Glucose 71 mg/dL (74-106) L 12/01/17 06:40 Calcium 8.3 mg/dL (8.5-10.1) L 12/01/17 06:40 Total Bilirubin 0.7 mg/dL (0.2-1.0) D 11/29/17 16:00 AST 38 U/L (15-37) H 11/29/17 16:00 ALT 30 U/L (12-78) 11/29/17 16:00 Alkaline Phosphatase 127 U/L (45-117) H 11/29/17 16:00 Total Protein 7.7 g/dl (6.4-8.2) 11/29/17 16:00 Albumin 2.9 g/dl (3.4-5.0) L 11/29/17 16:00 Current Medications Generic Name Dose Route Start Last Admin Trade Name Freq PRN Reason Stop Dose Admin Budesonide/Formoterol Fumarate 2 puff 11/29/17 22:00 12/01/17 09:50 Symbicort 160/4.5mcg - IH 2 puff BID PIERO Administration Cholecalciferol 2,000 unit 11/30/17 10:00 12/01/17 09:47 Vitamin D3 - PO 2,000 unit DAILY PIERO Administration Folic Acid 1 mg 11/30/17 10:00 12/01/17 09:48 Folic Acid - PO 1 mg DAILY PIERO Administration Levetiracetam 500 mg 11/29/17 22:00 12/01/17 09:49 Keppra - PO 500 mg BID PIERO Administration Lisinopril 10 mg 11/30/17 10:00 12/01/17 09:50 Prinivil PO Not Given DAILY [facility] Multivitamins 1 each 11/30/17 10:00 12/01/17 09:48 Total B With C - PO 1 each DAILY PIERO Administration Pancrelipase 1 cap 11/30/17 08:00 12/01/17 08:49 Kwame Curry 36,000 Units Capsule PO 1 cap TIDCM PIERO Administration Pantoprazole Sodium 20 mg 11/29/17 14:45 12/01/17 09:48 Protonix - PO 20 mg DAILY PIERO Administration Ropinirole HCl 0.25 mg 11/30/17 10:00 12/01/17 09:50 Requip - PO 0.25 mg DAILY PIERO Administration Solifenacin 5 mg 11/30/17 10:00 12/01/17 09:48 Vesicare - PO 5 mg DAILY PIERO Administration Tamsulosin HCl 0.4 mg 11/29/17 20:30 12/01/17 08:47 Flomax - PO 0.4 mg BID@0830,2030 PIERO Administration Home Medications Medication Instructions Recorded Folic Acid 1 mg PO DAILY 11/29/16 Lisinopril 10 mg PO DAILY 11/29/16 Vit B Comp/C/Folic/Iron/Vit E 1 each PO DAILY 11/29/16 [Vitamin B Complex Tablet] levETIRAcetam [Keppra -] 500 mg PO BID tablet 12/06/16 Budesonide/Formeterol Fumarate 1 inh PO BID 11/16/17 [SYMBICORT 160/4.5mcg -] Cholecalciferol (Vitamin D3) 2,000 unit PO DAILY 11/16/17 [Vitamin D -] Lipase/Protease/Amylase [Kwame Curry 1 each PO TID 11/16/17 36,000 Units Capsule] Oxybutynin Chloride [Oxybutynin 10 mg PO DAILY 11/16/17 Chloride ER] Ropinirole HCl [Requip] 0.25 mg PO DAILY 11/16/17 Tamsulosin HCl [Flomax -] 0.4 mg PO BID 11/16/17 Polyethylene Glycol 3350 [Miralax 17 gm PO DAILY #1 bottle 11/23/17 119 gm Btl -] Ranitidine HCl [Zantac] 150 mg PO BID #60 tablet 11/23/17 PE: per resident's note EGD: two columns of medium to large varices spanning from 30 cm from the incisors to 40 cm just prox. to the [place]unction., two large varices distally. 4 bands applied ASSESSMENT/PLAN: 62 y/o M with PMH cirrhosis, hepatitis C, GERD, CKD stage 3, h/o IVDA, cocaine use, HN, pancreatic insufficiency, BPH, and seizure disease, who presented to the hospital for upper endoscopy. Pt s/p variceal banding #s/p variceal banding - Day 3 ,on protonix 20mg PO qd, Ct #abdominal cramping s/p food intake also CT of abdomen and pelvix reports gallstones, will discuss with GI #episodic bradycardia Cardio consult: Dr. Christianson; f/u ECHO, TSH -Holter monitoring while patient is in hospital r/o syncopal events #hepatic cirrhosis 2/2 Hepatitis C, hx alcohol abuse;recently treated at [facility], PCR was undetectable;will need GI followup as outpt (US every 6 months, AFP, CEA) #BPH Continue tamsulosin 0.4mg PO BID ;vesicare 5mg PO qd #COPD without current complaint ;continue symbicort 2 puff IH BID #Seizures continue Keppra 500 mg BID #Pancreatic insufficency continue pancreatic enzymes (lipase/protease/amylase) #HTN-controlled continue lisinopril 10mg PO qd #CKD stage 3 avoid nephrotoxic medications, no NSAIDs continue to monitor DVT Px: SCD's, no heparin due to varices
--- NOTE | 2017-12-01 11:41 | EKG ---
Test Reason : Blood Pressure : / mmHG Vent. Rate : 063 BPM Atrial Rate : 063 BPM P-R Int : 152 ms QRS Dur : 086 ms QT Int : 422 ms P-R-T Axes : 080 004 059 degrees QTc Int : 431 ms SINUS RHYTHM WITH FREQUENT PREMATURE VENTRICULAR COMPLEXES SEPTAL INFARCT (CITED ON OR BEFORE 20-OCT-2013) ABNORMAL ECG WHEN COMPARED WITH ECG OF 23-NOV-2017 11:02, PREMATURE VENTRICULAR COMPLEXES ARE NOW PRESENT QUESTIONABLE CHANGE IN INITIAL FORCES OF SEPTAL LEADS Confirmed by LILI MOREJON MD ([id number]) on 12/01/2017 11:41:15 AM Referred By: LIZA MORRIS Confirmed By:LILI MOREJON MD
[2017-12-01] MEDS ORDERED: ACETAMINOPHEN 500 MG TABLET (FP) PO ONE (13:14)
--- NOTE | 2017-12-01 14:57 | PN ---
Physical Exam: SUBJECTIVE: Patient seen and examined at bedside. Overnight pt continues to c/o abdominal cramping, received Tylenol 650mg PO x 1. Today, pt c/o same pain, given additional dose of tylenol. Otherwise pt denies GALE, fever, chills, SOB, or changes in urinary or bowel function. OBJECTIVE: Vital Signs Period Temp Pulse Resp BP Sys/Eisenberg Pulse Ox Last 24 Hr 98.3 F-99.0 F 66-76 18-21 95-130/55-80 96-98 GENERAL: The patient is lying down. awake, alert, and fully oriented, in mild distress HEAD: Normal with no signs of trauma. EYES: PERRL, extraocular movements intact, sclera anicteric, conjunctiva clear. ENT: Ears normal, nares patent, oropharynx clear without exudates, dry mucous membranes NECK: Trachea midline, supple. LUNGS: Breath sounds equal, clear to auscultation bilaterally, no wheezes, no crackles, no accessory muscle use. HEART: Regular rate and rhythm, S1, S2 without murmur, rub or gallop. ABDOMEN: Soft, nontender, nondistended, normoactive bowel sounds, no guarding, no rebound, no hepatosplenomegaly, no masses. EXTREMITIES: 2+ posterior tibial pulses, warm, well-perfused, no edema. NEUROLOGICAL: Cranial nerves II through XII grossly intact. Normal speech, gait not observed. PSYCH: Normal mood, normal affect. SKIN: Warm, dry, normal turgor, no rashes or lesions noted Laboratory Results - last 24 hr 12/01/17 12/01/17 06:40 06:40 WBC 7.4 RBC 3.97 L Hgb 11.6 L Hct 35.2 L MCV 88.5 MCH 29.1 MCHC 32.9 RDW 17.5 H Plt Count 104 L MPV 8.7 D Neutrophils % 62.1 Lymphocytes % 16.5 D Monocytes % 17.5 H Eosinophils % 3.1 Basophils % 0.8 Sodium 141 Potassium 4.4 Chloride 109 H Carbon Dioxide 27 Anion Gap 5 L BUN 11 Creatinine 1.6 H Random Glucose 71 L Calcium 8.3 L TSH 1.69 Active Medications Generic Name Dose Route Start Last Admin Trade Name Freq PRN Reason Stop Dose Admin Budesonide/Formoterol Fumarate 2 puff 11/29/17 22:00 12/01/17 09:50 Symbicort 160/4.5mcg - IH 2 puff BID PIERO Administration Cholecalciferol 2,000 unit 11/30/17 10:00 12/01/17 09:47 Vitamin D3 - PO 2,000 unit DAILY PIERO Administration Folic Acid 1 mg 11/30/17 10:00 12/01/17 09:48 Folic Acid - PO 1 mg DAILY PIERO Administration Levetiracetam 500 mg 11/29/17 22:00 12/01/17 09:49 Keppra - PO 500 mg BID PIERO Administration Lisinopril 10 mg 11/30/17 10:00 12/01/17 09:50 Prinivil PO Not Given DAILY [facility] Multivitamins 1 each 11/30/17 10:00 12/01/17 09:48 Total B With C - PO 1 each DAILY PIERO Administration Pancrelipase 1 cap 11/30/17 08:00 12/01/17 12:30 Kwame Curry 36,000 Units Capsule PO 1 cap TIDCM PIERO Administration Pantoprazole Sodium 20 mg 11/29/17 14:45 12/01/17 09:48 Protonix - PO 20 mg DAILY PIERO Administration Ropinirole HCl 0.25 mg 11/30/17 10:00 12/01/17 09:50 Requip - PO 0.25 mg DAILY PIERO Administration Solifenacin 5 mg 11/30/17 10:00 12/01/17 09:48 Vesicare - PO 5 mg DAILY PIERO Administration Tamsulosin HCl 0.4 mg 11/29/17 20:30 12/01/17 08:47 Flomax - PO 0.4 mg BID@ PIERO Administration ASSESSMENT/PLAN: 62 y/o M with PMH cirrhosis, hepatitis C, GERD, CKD stage 3, h/o IVDA, cocaine use, HN, pancreatic insufficiency, BPH, and seizure disease, who presented to the hospital for upper endoscopy. Pt s/p variceal banding - Day 1. #s/p variceal banding - Day 2 -Continue protonix 20mg PO qd -Will need continued endoscopic ablation as therapy as primary prophylaxis of variceal bleeding -Full liquid diet will continue on soft diet after additional day -GI- -F/u CBC #abdominal cramping s/p food intake -F/u CT abdomen pelvis w/o contrast (no IV contrast- CKD stage 3 - however with PO contrast) -to determine whether any additional pathology #episodic bradycardia -last recorded on admission - HR ~50s -Cardio consult: Dr. Christianson -F/u ECHO - still pending -TSH WNL (1.69) -Holter monitoring r/o syncopal events #hepatic cirrhosis 2/2 Hepatitis C, hx alcohol abuse -recently treated at [facility], PCR was undetectable -will need GI followup as outpt (US every 6 months, AFP, CEA) #BPH -bladder scan, straight cath -With mariano - trial off -Continue tamsulosin 0.4mg PO BID -vesicare 5mg PO qd #COPD -without current complaint -continue symbicort 2 puff IH BID #Seizures -continue Keppra 500 mg BID #Pancreatic insufficency -continue pancreatic enzymes (lipase/protease/amylase) #HTN-controlled -continue lisinopril 10mg PO qd #CKD stage 3 -avoid nephrotoxic medications, no NSAIDs -continue to monitor Cr, urine output #F/E/N -not on IVF currently -monitoring lytes -full liquid diet #PPX DVT: SCD's, no heparin as pt with varices. #Dispo in observation Visit type - Emergency Visit Emergency Visit: No - New Patient This patient is new to me today: No - Critical Care Critical Care patient: No
--- NOTE | 2017-12-01 19:44 | PN ---
GI Progress Note Subjective: No acute events Abdominal cramping has improved CT scan had revealed cirrhotic looking liver, small amount of ascites and question of thickening in multiple part of intestinal that have all just recently been directly visualized. - Objective Vital Signs: Vital Signs Temperature 98.7 F 12/01/17 18:00 Pulse Rate 61 12/01/17 18:00 Respiratory Rate 18 12/01/17 18:00 Blood Pressure 115/63 12/01/17 18:00 O2 Sat by Pulse Oximetry (%) 98 12/01/17 18:00 Constitutional: Calm Eyes: No: Sclera Icterus Cardiovascular: Yes: Regular Rate and Rhythm Respiratory: Yes: CTA Bilaterally ...Auscultate: Yes: Normoactive Bowel Sounds ...Palpate: No: Hepatomegaly, Tenderness ...Percussion: No: Tympanitic Edema: No (No LE edema) Neurological: Yes: Alert, Oriented. No: Asterixis Labs: CBC, BMP 12/01/17 06:40 12/01/17 06:40 INR, PTT INR 1.16 (0.82-1.09) H 11/29/17 11:42 - ....Imaging Cat Scan: Report Reviewed, Image Reviewed Problem List - Problems (1) Esophageal varices determined by endoscopy Assessment/Plan: I suspect that the thickening of the esophagus seen on CT scan is from the banding H/H stable Full liquid one more day then soft diet, sodium controlled. Can go home on full liquid diet Thickening on CT scan: cecum and upper GI tract just recently directly visualized. No diarrhea suggestive of colitis. ? if overreading of thickening by the radiologist Avoid opiate analgesia Repeat EGD in 2 weeks. Follow-up in office in 1 week Code(s): I85.00 - ESOPHAGEAL VARICES WITHOUT BLEEDING (2) Urinary retention Code(s): R33.9 - RETENTION OF URINE, UNSPECIFIED (3) Bradycardia Code(s): R00.1 - BRADYCARDIA, UNSPECIFIED (4) Chest pain Code(s): R07.9 - CHEST PAIN, UNSPECIFIED
[2017-12-02 06:09] VITALS: TEMP 98.3
[2017-12-02 07:38] LABS: BASO % 1.2 % (0-2.0); EOS % 4.2 % (0-4.5); HEMATOCRIT 32.6 % (35.4-49); HEMOGLOBIN 10.8 GM/dL (11.7-16.9); LYMPH % 19.8 % (8-40); MCH 29.2 pg (25.7-33.7); MCHC 33.1 g/dl (32.0-35.9); MEAN CELL VOLUME 88.2 fl (80-96); MEAN PLT VOLUME 8.8 fl (7.5-11.1); MONO % 15.2 % (3.8-10.2); NEUT % 59.6 % (42.8-82.8); PLATELET COUNT 106 K/MM3 (134-434); RDW 17.2 % (11.9-15.9); WHITE BLOOD COUNT 6.9 K/mm3 (4.0-10.0)
[2017-12-02 08:01] LABS: CHLORIDE 110 mmol/L (98-107); SODIUM 142 mmol/L (136-145)
[2017-12-02] MEDS: TAMSULOSIN HCL 0.4 MG CAP.ER.24H (FP) PO SCH (08:18)
[2017-12-02 08:27] LABS: ANION GAP 7 (8-16); BLOOD UREA NITROGEN 9 mg/dL (7-18); CALCIUM 8.3 mg/dL (8.5-10.1); CO2 25 mmol/L (21-32); CREATININE 1.6 mg/dL (0.7-1.3); GLUCOSE,RANDOM 82 mg/dL (74-106)
--- NOTE | 2017-12-02 08:51 | PN ---
Progress Note, Physician Chief Complaint: alert and oriented Holter in progress - Current Medication List Current Medications: Active Medications Budesonide/Formoterol Fumarate (Symbicort 160/4.5mcg -) 2 puff IH BID [facility] Last Admin: 12/01/17 21:29 Dose: 2 puff Cholecalciferol (Vitamin D3 -) 2,000 unit PO DAILY [facility] Last Admin: 12/01/17 09:47 Dose: 2,000 unit Folic Acid (Folic Acid -) 1 mg PO DAILY [facility] Last Admin: 12/01/17 09:48 Dose: 1 mg Levetiracetam (Keppra -) 500 mg PO BID [facility] Last Admin: 12/01/17 21:29 Dose: 500 mg Lisinopril (Prinivil) 10 mg PO DAILY [facility] Last Admin: 12/01/17 09:50 Dose: Not Given Multivitamins (Total B With C -) 1 each PO DAILY [facility] Last Admin: 12/01/17 09:48 Dose: 1 each Pancrelipase (Creon Dr 36,000 Units Capsule) 1 cap PO TIDCM [facility] Last Admin: 12/01/17 17:41 Dose: 1 cap Pantoprazole Sodium (Protonix -) 20 mg PO DAILY [facility] Last Admin: 12/01/17 09:48 Dose: 20 mg Ropinirole HCl (Requip -) 0.25 mg PO DAILY [facility] Last Admin: 12/01/17 09:50 Dose: 0.25 mg Solifenacin (Vesicare -) 5 mg PO DAILY [facility] Last Admin: 12/01/17 09:48 Dose: 5 mg Tamsulosin HCl (Flomax -) 0.4 mg PO BID@0830,2030 [facility] Last Admin: 12/02/17 08:18 Dose: 0.4 mg - Objective Vital Signs: Vital Signs Temperature 98.3 F 12/02/17 06:00 Pulse Rate 55 L 12/02/17 06:00 Respiratory Rate 16 12/02/17 06:00 Blood Pressure 106/68 12/02/17 06:00 O2 Sat by Pulse Oximetry (%) 98 12/02/17 06:00 Constitutional: Yes: No Distress Cardiovascular: Yes: Regular Rate and Rhythm Respiratory: Yes: CTA Bilaterally Gastrointestinal: Yes: Soft Edema: No Neurological: Yes: Alert, Oriented ...Motor Strength: WNL Labs: CBC, BMP 12/02/17 06:30 12/02/17 06:30 INR, PTT INR 1.16 (0.82-1.09) H 11/29/17 11:42 Assessment/Plan IMP: Hep C Cirrhosis Esophageal Varices Cocaine Abuse Incidentally detected Sinus Bradycardia REC: 1. F/u Holter 2. Echo 3. Avoid AV bert agents
[2017-12-02] MEDS: LIPASE/PROTEASE/AMYLASE 36,000 UNIT CAPSULE PO SCH ×2 (08:57→11:48)
[2017-12-02] MEDS: VITAMIN B COMPLEX W/C COMBO TABLET (FP) PO SCH (09:38)
[2017-12-02] MEDS: SOLIFENACIN SUCCINATE 5 MG TAB (FP) PO SCH (09:38)
[2017-12-02] MEDS: CHOLECALCIFEROL (VITAMIN D3) 400 UNIT TABLET (FP) PO SCH (09:38)
[2017-12-02] MEDS: PANTOPRAZOLE 20 MG TABLET (FP) PO SCH (09:38)
[2017-12-02] MEDS: FOLIC ACID 1 MG TABLET (FP) PO SCH (09:38)
[2017-12-02] MEDS: levETIRAcetam 500 MG TABLET (FP) PO SCH (09:38)
[2017-12-02] MEDS: LISINOPRIL 10 MG TABLET (FP) PO SCH (09:38)
[2017-12-02] MEDS: BUDESONIDE/FORMETEROL FUMARATE 160/4.5 mcg INHALER IH SCH (09:39)
[2017-12-02 09:47] VITALS: BP 101/58; PULSE 78
[2017-12-02] MEDS ORDERED: PT OWN MED DRAWER 7, Y5N ONE (11:23)
[2017-12-02] MEDS: rOPINIRole HCL 0.25 MG TABLET PO SCH (11:48)
--- NOTE | 2017-12-02 13:48 | DS ---
Physical Exam: SUBJECTIVE: Patient seen and examined at bedside. No acute events overnight. Today, pt states that he feels well and would like to go home. Son at bedside. Denies GALE, fever, chills, SOB, chest pain, or changes in bowel or urinary function. OBJECTIVE: Vital Signs Period Temp Pulse Resp BP Sys/Eisenberg Pulse Ox Last 24 Hr 98.3 F-98.8 F 55-78 16-20 101-121/58-72 98-98 PHYSICAL EXAM GENERAL: The patient is sitting up. OOB, awake, alert, and fully oriented, in no acute distress. HEAD: Normal with no signs of trauma. EYES: PERRL, extraocular movements intact, sclera anicteric, conjunctiva clear. ENT: Ears normal, nares patent, oropharynx clear without exudates, moist mucous membranes. NECK: Trachea midline, supple. LUNGS: Breath sounds equal, clear to auscultation bilaterally, no wheezes, no crackles, no accessory muscle use. HEART: Regular rate and rhythm, S1, S2 without murmur, rub or gallop. ABDOMEN: Soft, nontender, nondistended, normoactive bowel sounds, no guarding EXTREMITIES: 2+ posterior tibial pulses, warm, well-perfused, no edema. NEUROLOGICAL: Cranial nerves II through XII grossly intact. Normal speech PSYCH: Normal mood, normal affect. SKIN: Warm, dry, normal turgor LABS Laboratory Results 12/02/17 12/02/17 06:30 06:30 WBC 6.9 RBC 3.70 L Hgb 10.8 L Hct 32.6 L MCV 88.2 MCH 29.2 MCHC 33.1 RDW 17.2 H Plt Count 106 L MPV 8.8 Neutrophils % 59.6 Lymphocytes % 19.8 Monocytes % 15.2 H Eosinophils % 4.2 Basophils % 1.2 Sodium 142 Potassium 4.0 Chloride 110 H Carbon Dioxide 25 Anion Gap 7 L BUN 9 Creatinine 1.6 H Random Glucose 82 Calcium 8.3 L RADIOLOGY: -CTAP 11/30/17: mild emphysematous changes and minimal atelectatic changes in R lung base extending to the posterior costophrenic angle with mild pleural thickening. Dense calcification of the coronary arteries. Findings are again compatible with liver cirrhosis. Interval small to moderate amount of free fluid /ascites in the RUQ and to a lesser extent int he RLQ and pelvis. Partial distension of the stomach with suggestion of thickening of the fundal and body wall, mainly anteriorly. Further evaluation needed. There is also thickening of the distal esophageal wall. Multiple gallstones without CT evidence of acute cholecystitis. 5 mm nonobstructing L renal lower pole stone. Poor visualization of the appendix due to surrounding inflammatory changes and fluid. However, there is now questionable thickening of the cecal wall. Rule out colitis. 2 small stones again seen layering in the urinary bladder. There is mild diffuse thickening of the urinary bladder wall that may be due to inadequate distension vs. cystitis. No free air is present in the abdomen and pelvis. -EGD 11/29/17 : two columns of medium to large varices spanning from 30 cm from the incisors to 40 cm just prox. to the GE Junction., two large varices distally. 4 bands applied HOSPITAL COURSE: Date of Admission:11/29/17 Date of Discharge: 12/02/17 Admit diagnosis: esophageal varices s/p banding 62 y/o M with PMH cirrhosis, hepatitis C, GERD, CKD stage 3, h/o IVDA, cocaine use, HTN, pancreatic insufficiency, BPH, and seizure disease, who presented to the hospital for upper endoscopy. During the procedure, he was found to have esophageal varices that were banded. Specifically, two columns of medium to large varices were found spanning from 30 cm from the incisors to 40 cm just prox. to the GE Junction.,as well as two large varices distally. No bleeding was noted. The patient was admitted to be observed for further bleeding after procedure in light of bradycardia and cocaine use (last use last week). Pt was seen in the hospital by GI, maintained on protonix 20mg qd, with gradual advancement of diet. He will follow with GI upon d/c for follow-up EGD. Pt also underwent a CTAP d/t abdominal cramping after eating, which revealed liver cirrhosis, gallstones, L renal lower pole stone, as well as a reading of colitis. However, as pt was without diarrhea, this was less likely. He will continue GI follow up on d/c for further investigation if needed. During hospitalization, pt also with runs of bradycardia seen by cardiology. He was monitored on a holter monitor, had a TSH checked (WNL; 1.67) and was seen by cardio. He will follow in a week. Minutes to complete discharge: 32 <Felisha Carmona - Last Filed: 12/02/17 14:14> Physical Exam: Patient is comfortable and cam be discharged home. No new complains. Vital Signs Temperature 98.3 F 12/02/17 08:50 Pulse Rate 78 12/02/17 08:50 Respiratory Rate 20 12/02/17 08:50 Blood Pressure 101/58 12/02/17 08:50 O2 Sat by Pulse Oximetry (%) 98 12/02/17 06:00 CBCD WBC 6.9 K/mm3 (4.0-10.0) 12/02/17 06:30 RBC 3.70 M/mm3 (4.00-5.60) L 12/02/17 06:30 Hgb 10.8 GM/dL (11.7-16.9) L 12/02/17 06:30 Hct 32.6 % (35.4-49) L 12/02/17 06:30 MCV 88.2 fl (80-96) 12/02/17 06:30 MCHC 33.1 g/dl (32.0-35.9) 12/02/17 06:30 RDW 17.2 % (11.9-15.9) H 12/02/17 06:30 Plt Count 106 K/MM3 (134-434) L 12/02/17 06:30 MPV 8.8 fl (7.5-11.1) 12/02/17 06:30 CMP Sodium 142 mmol/L (136-145) 12/02/17 06:30 Potassium 4.0 mmol/L (3.5-5.1) 12/02/17 06:30 Chloride 110 mmol/L (98-107) H 12/02/17 06:30 Carbon Dioxide 25 mmol/L (21-32) 12/02/17 06:30 Anion Gap 7 (8-16) L 12/02/17 06:30 BUN 9 mg/dL (7-18) 12/02/17 06:30 Creatinine 1.6 mg/dL (0.7-1.3) H 12/02/17 06:30 Creat Clearance w eGFR 43.87 (>60) 11/29/17 16:00 Random Glucose 82 mg/dL (74-106) 12/02/17 06:30 Calcium 8.3 mg/dL (8.5-10.1) L 12/02/17 06:30 Total Bilirubin 0.7 mg/dL (0.2-1.0) D 11/29/17 16:00 AST 38 U/L (15-37) H 11/29/17 16:00 ALT 30 U/L (12-78) 11/29/17 16:00 Alkaline Phosphatase 127 U/L (45-117) H 11/29/17 16:00 Total Protein 7.7 g/dl (6.4-8.2) 11/29/17 16:00 Albumin 2.9 g/dl (3.4-5.0) L 11/29/17 16:00 Home Medications Medication Instructions Recorded Folic Acid 1 mg PO DAILY 11/29/16 Lisinopril 10 mg PO DAILY 11/29/16 Vit B Comp/C/Folic/Iron/Vit E 1 each PO DAILY 11/29/16 [Vitamin B Complex Tablet] levETIRAcetam [Keppra -] 500 mg PO BID tablet 12/06/16 Budesonide/Formeterol Fumarate 1 inh PO BID 11/16/17 [SYMBICORT 160/4.5mcg -] Cholecalciferol (Vitamin D3) 2,000 unit PO DAILY 11/16/17 [Vitamin D -] Lipase/Protease/Amylase [Creon Dr 1 each PO TID 11/16/17 36,000 Units Capsule] Oxybutynin Chloride [Oxybutynin 10 mg PO DAILY 11/16/17 Chloride ER] Ropinirole HCl [Requip] 0.25 mg PO DAILY 11/16/17 Tamsulosin HCl [Flomax -] 0.4 mg PO BID 11/16/17 Polyethylene Glycol 3350 [Miralax 17 gm PO DAILY #1 bottle 11/23/17 119 gm Btl -] Pantoprazole Sodium [Protonix -] 20 mg PO BID #30 tablet.ec 12/02/17 Minutes to complete discharge: 35 <Rhina Zavala - Last Filed: 12/02/17 20:03> Discharge Summary Reason For Visit: OTHER FECAL ABNORMALITIES,OTHER CIRRHOSIS OF LIVER - Home Medications Comprehensive Discharge Medication List: Ambulatory Orders Folic Acid 1 mg PO DAILY 11/29/16 Lisinopril 10 mg PO DAILY 11/29/16 Vit B Comp/C/Folic/Iron/Vit E [Vitamin B Complex Tablet] 1 each PO DAILY levETIRAcetam [Keppra -] 500 mg PO BID tablet 12/06/16 Budesonide/Formeterol Fumarate [SYMBICORT 160/4.5mcg -] 1 inh PO BID 11/16/17 Cholecalciferol (Vitamin D3) [Vitamin D -] 2,000 unit PO DAILY 11/16/17 Lipase/Protease/Amylase [Kwame Curry 36,000 Units Capsule] 1 each PO TID 11/16/17 Oxybutynin Chloride [Oxybutynin Chloride ER] 10 mg PO DAILY 11/16/17 Ropinirole HCl [Requip] 0.25 mg PO DAILY 11/16/17 Tamsulosin HCl [Flomax -] 0.4 mg PO BID 11/16/17 Polyethylene Glycol 3350 [Miralax 119 gm Btl -] 17 gm PO DAILY #1 bottle Pantoprazole Sodium [Protonix -] 20 mg PO BID #30 tablet.ec 12/02/17 <Felisha Carmona - Last Filed: 12/02/17 14:14> - Home Medications Comprehensive Discharge Medication List: Ambulatory Orders Folic Acid 1 mg PO DAILY 11/29/16 Lisinopril 10 mg PO DAILY 11/29/16 Vit B Comp/C/Folic/Iron/Vit E [Vitamin B Complex Tablet] 1 each PO DAILY levETIRAcetam [Keppra -] 500 mg PO BID tablet 12/06/16 Budesonide/Formeterol Fumarate [SYMBICORT 160/4.5mcg -] 1 inh PO BID 11/16/17 Cholecalciferol (Vitamin D3) [Vitamin D -] 2,000 unit PO DAILY 11/16/17 Lipase/Protease/Amylase [Kwame Curry 36,000 Units Capsule] 1 each PO TID 11/16/17 Oxybutynin Chloride [Oxybutynin Chloride ER] 10 mg PO DAILY 11/16/17 Ropinirole HCl [Requip] 0.25 mg PO DAILY 11/16/17 Tamsulosin HCl [Flomax -] 0.4 mg PO BID 11/16/17 Polyethylene Glycol 3350 [Miralax 119 gm Btl -] 17 gm PO DAILY #1 bottle Pantoprazole Sodium [Protonix -] 20 mg PO BID #30 tablet.ec 12/02/17 <Rhina Zavala - Last Filed: 12/02/17 20:03> Condition: Good - Instructions Diet, Activity, Other Instructions: You were recently in the hospital to have an upper endoscopy. During the procedure, you had banding done of varices in your esophagus. These are dilated vessels. Please continue a soft diet when you go home. We would like you to follow up with Dr. Alexis Alonzo, the gastrointestinal (GI) doctor that saw you in the hospital in one week. You will need a repeat EGD (scope) in two weeks; he will discuss this at your visit. You will likely need to follow up with him frequently after to have abdominal ultrasounds and screenings. Please continue the acid suppressing medication, protonix 20mg twice a day until your visit with Dr. Alonzo. You may continue your other medications. We would also like you to follow up with your primary care physician in a week ( Dr. Clemnets), and a filter cloth maker, Dr. Christianson who saw you in the hospital. Please refrain from alcohol or any drug use, as these will harm your current condition. If you develop chest pain, notice any blood in your stool, or feel as if you will pass out, please go to the hospital. We hope you feel better soon. Referrals: Rangel Bernard MD [Primary Care Provider] - Sonny Alonzo DO [Staff Physician] - 1 Week Musa Christianson MD [Staff Physician] - 1 Week Disposition: HOME This patient is new to me today: No Emergency Visit: No Critical Care patient: No - Discharge Referral Referred to [facility] No <Felisha Carmona - Last Filed: 12/02/17 14:14>
--- NOTE | 2017-12-02 14:03 | HOL ---
Hook-up date: 2017-12-01 09:39:00 Duration: 24:00:00 Test Indications: BRADYCARDIA Medications: 59945 QRS complexes 8261 Ventricular ectopics which represent 8 % of total QRS comp. 23 Supraventricular ectopics which represent <1 % of total QRS comp. * Paced QRS complexs which represent % of total QRS comp. * % of Time Classified as Noise VENTRICULAR ECTOPY 8257 Isolated 266 Bigeminal Cycles 2 Couplets 0 Runs 0 Beats in Runs * Beats LONGEST at * BPM at :: -- * Beats FASTEST at * BPM at :: -- SUPRAVENTRICULAR ECTOPY 21 Isolated 1 Couplets 0 Runs 0 Beats in Runs * Beats LONGEST at * BPM at :: -- * Beats FASTEST at * BPM at :: -- HEART RATES 42 MIN at 04:39:20 2017-12-02 67 AVG 102 MAX at 17:49:43 2017-12-01 LONGEST RR 1.584 secs at 05:08:14 2017-12-02 The underlying rhythm is NSR with an average rate of 67bpm. Frequent single VPCs. Rare ventricular couplets. VPCs occasionally seen in a pattern of bigeminy, Rare APCs. No significant pauses. No diary entries. Confirmed by LIZA MORRIS MD ([id number]) on 12/02/2017 2:02:33 PM Referred By: CLAUDE AVELAR DR Overread By: LIZA MORRIS MD
== END 2017-12-02 14:04 | disposition home or self-care (01) ==
LOC: SUATTDRO 11:31 → JASU-ENDO 11:31 → J6W 14:17 → JASU-ENDO 14:30 → J6S 14:30 → JASU-ENDO 12-02 07:15 → J6S 12-02 07:15 → JASU-ENDO 12-02 14:04
PROVIDERS: ADMIT Internal Medicine; ATTEND Internal Medicine
PROC: 0DB68ZX Excision of Stomach, Via Natural or Artificial Opening Endoscopic, Diagnostic (ICD-10-PCS; 2017-11-29)
PROC: 0T9B70Z Drainage of Bladder with Drainage Device, Via Natural or Artificial Opening (ICD-10-PCS; 2017-11-29)
PROC: 3E0F7GC Introduction of Other Therapeutic Substance into Respiratory Tract, Via Natural or Artificial Opening (ICD-10-PCS; 2017-11-29)
PROC: 06L38CZ Occlusion of Esophageal Vein with Extraluminal Device, Via Natural or Artificial Opening Endoscopic (ICD-10-PCS; principal; 2017-11-29 10:00)
DX: Z13.810 Encounter for screening for upper gastrointestinal disorder (principal); I85.00 Esophageal varices without bleeding; K25.7 Chronic gastric ulcer without hemorrhage or perforation; I12.9 Hypertensive chronic kidney disease with stage 1 through stage 4 chronic kidney disease, or unspecified chronic kidney disease; N18.3 Chronic kidney disease, stage 3 (moderate); N40.0 Benign prostatic hyperplasia without lower urinary tract symptoms; G40.909 Epilepsy, unspecified, not intractable, without status epilepticus; R00.1 Bradycardia, unspecified; K70.30 Alcoholic cirrhosis of liver without ascites; B19.20 Unspecified viral hepatitis C without hepatic coma; F14.90 Cocaine use, unspecified, uncomplicated; R33.9 Retention of urine, unspecified; R07.9 Chest pain, unspecified; J44.9 Chronic obstructive pulmonary disease, unspecified; R10.9 Unspecified abdominal pain; M54.5 Low back pain; K86.89 Other specified diseases of pancreas
CPT/HCPCS: 36415; 51702; 74176-TC; 80048; 80053; 83735; 84100; 84443; 85025; 85027; 85610; 85730; 86850; 86900; 86901; 88305-TC; 88342-TC; 93005; 93010; 93225; 93226; 93306-TC; 94640; G0378

== ENCOUNTER 2017-12-13 11:43 | Day surgery (SDC) | payer OTHER ==
[2017-12-13 11:57] LABS: HEMATOCRIT 31.9 % (35.4-49); HEMOGLOBIN 10.5 GM/dL (11.7-16.9); MCH 28.9 pg (25.7-33.7); MEAN CELL VOLUME 87.6 fl (80-96); MEAN PLT VOLUME 8.5 fl (7.5-11.1); PLATELET COUNT 131 K/MM3 (134-434); RBC 3.64 M/mm3 (4.00-5.60); RDW 17.7 % (11.9-15.9)
[2017-12-13 12:06] VITALS: BMI 23.8
[2017-12-13 13:39] VITALS: TEMP 97.5
[2017-12-13 15:12] VITALS: BP 145/60; PULSE 78
== END 2017-12-13 15:05 | disposition home or self-care (01) ==
LOC: JASU-ENDO 11:43
PROVIDERS: ATTEND Internal Medicine Gastroenterology
PROC: 06L38CZ Occlusion of Esophageal Vein with Extraluminal Device, Via Natural or Artificial Opening Endoscopic (ICD-10-PCS; principal; 2017-12-13 12:15)
DX: I85.00 Esophageal varices without bleeding (principal); K29.70 Gastritis, unspecified, without bleeding; K29.80 Duodenitis without bleeding; B19.20 Unspecified viral hepatitis C without hepatic coma; I10 Essential (primary) hypertension; K74.60 Unspecified cirrhosis of liver; F14.90 Cocaine use, unspecified, uncomplicated; N40.0 Benign prostatic hyperplasia without lower urinary tract symptoms; Z87.891 Personal history of nicotine dependence; J44.9 Chronic obstructive pulmonary disease, unspecified; F10.21 Alcohol dependence, in remission
CPT/HCPCS: 36415; 85027; 86850; 86900; 86901

== ENCOUNTER 2018-01-03 08:50 | Day surgery (SDC) | payer OTHER ==
[2018-01-03] MEDS ORDERED: PROPOFOL 20 ML ONE ×2 (09:21)
[2018-01-03] MEDS ORDERED: LIDOCAINE HCL/PF 1% SDV 5ML VIAL ONE (09:22)
[2018-01-03 09:56] VITALS: BMI 26.2
[2018-01-03 10:25] VITALS: TEMP 97.7
[2018-01-03 15:39] VITALS: BP 110/72; PULSE 74
--- NOTE | 2018-01-04 16:32 | PATH ---
Surgical Pathology Report Patient Name: COLTON VALENTINO [facility]. Rec. #: [id number] /Age/Gender: 1955 (Age: 62) / M Account: [id number] Location: U-ENDOSCOPY Taken: 01/03/2018 Received: 01/03/2018 Reported: 01/04/2018 Physicians: Alexis Alonzo D.O. Specimen(s) Received BX ANTRAL EROSIONS Clinical History Esophageal varices surveillance Final Diagnosis stomach, antrum, biopsy: Gastric Antral mucosa with MILD chronic FOCAL ACTIVE gastritis. Immunohistochemical STAIN FOR H. Pylori is negative. Electronically Signed By Trang Dey M.D. Gross Description Received in formalin, labeled "antral erosions, ruled out H. pylori " are 2 maher, irregular portions of soft tissue measuring 0.4 cm. in greatest dimension. The specimen is submitted in toto in one cassette. LIGIA/01/03/2018 araceli/01/03/2018
== END 2018-01-03 11:50 | disposition home or self-care (01) ==
LOC: JASU-ENDO 08:50
PROVIDERS: ATTEND Internal Medicine Gastroenterology
PROC: 0DB68ZX Excision of Stomach, Via Natural or Artificial Opening Endoscopic, Diagnostic (ICD-10-PCS; principal; 2018-01-03 09:00)
DX: I85.00 Esophageal varices without bleeding (principal); K29.00 Acute gastritis without bleeding; K44.9 Diaphragmatic hernia without obstruction or gangrene; K22.2 Esophageal obstruction
CPT/HCPCS: 88305-TC; 88342-TC

== ENCOUNTER 2018-06-20 12:36 | Day surgery (SDC) | payer OTHER ==
[2018-06-19 17:00] VITALS: BMI 28.3
[2018-06-20 15:14] VITALS: TEMP 98.6
[2018-06-20 16:09] VITALS: BP 110/60; PULSE 75
== END 2018-06-20 16:09 | disposition home or self-care (01) ==
LOC: JASU-ENDO 12:36
PROVIDERS: ATTEND Internal Medicine Gastroenterology
PROC: 0DJ08ZZ Inspection of Upper Intestinal Tract, Via Natural or Artificial Opening Endoscopic (ICD-10-PCS; principal; 2018-06-20 13:30)
DX: I85.10 Secondary esophageal varices without bleeding (principal); K76.6 Portal hypertension; K70.31 Alcoholic cirrhosis of liver with ascites; K31.89 Other diseases of stomach and duodenum; K44.9 Diaphragmatic hernia without obstruction or gangrene; K22.2 Esophageal obstruction; F10.21 Alcohol dependence, in remission; F19.11 Other psychoactive substance abuse, in remission

== ENCOUNTER 2018-09-15 19:11 | Emergency (ER) | payer OTHER ==
--- NOTE | 2018-09-15 19:15 | PDOC ---
Rapid Medical Evaluation Time Seen by Provider: 09/15/18 19:14 Medical Evaluation: Allergies Allergy/AdvReac Type Severity Reaction Status Date / Time Penicillins Allergy Unknown Verified 04/26/18 20:00 aspirin AdvReac Intermediate Verified 04/26/18 15:16 09/15/18 19:14 I have performed a brief in-person evaluation of this patient. The patient presents with a chief complaint of: Abd pain today w/ intermittent diarrhea x 1 week. H/o ETOH cirrhosis (c/b ascites-s/p paracentesis 05/11 while admitted at [facility]), HCV, on lactulose, former cocaine user, HTN, CKD, seizures. Pertinent physical exam findings:Stable and in NAD I have ordered the following:labs The patient will proceed to the ED for further evaluation. Discharge Disposition - Diagnosis Abdominal pain Qualifiers: Abdominal location: unspecified location Qualified Code(s): R10.9 - Unspecified abdominal pain - Referrals - Patient Instructions - Post Discharge Activity
[2018-09-15 19:23] VITALS: BP 161/88; PULSE 87; TEMP 98.4; BMI 28.3
--- NOTE | 2018-09-15 20:24 | PDOC ---
History of Present Illness - General Chief Complaint: Pain Stated Complaint: ABDOMINAL PAIN Time Seen by Provider: 09/15/18 19:14 - History of Present Illness Initial Comments: Patient eloped before medical evaluation. Past History - Past Medical History Allergies/Adverse Reactions: Allergies Allergy/AdvReac Type Severity Reaction Status Date / Time Penicillins Allergy Unknown Verified 04/26/18 20:00 aspirin AdvReac Intermediate Verified 04/26/18 15:16 Home Medications: Ambulatory Orders Folic Acid 1 mg PO DAILY 11/29/16 levETIRAcetam [Keppra -] 500 mg PO BID tablet 12/06/16 Oxybutynin Chloride [Oxybutynin Chloride ER] 10 mg PO DAILY 11/16/17 Ropinirole HCl [Requip] 0.25 mg PO DAILY 11/16/17 Tamsulosin HCl [Flomax -] 0.4 mg PO BID 11/16/17 Spironolactone [Aldactone -] 50 mg PO DAILY #30 tablet 02/03/18 Furosemide [Lasix] 40 mg PO DAILY #30 tablet 02/07/18 Multivitamin with Iron [Multivitamins with Iron] 1 each PO DAILY 04/27/18 Pantoprazole Sodium [Protonix -] 20 mg PO DAILY 04/27/18 Melatonin 5 mg PO HS PRN tab 04/28/18 Budesonide/Formeterol Fumarate [SYMBICORT 160/4.5mcg -] 1 inh PO BID 06/20/18 Lactulose 20 gm PO TID 06/20/18 Lipase/Protease/Amylase [Zenaidaon Dr 36,000 Units Capsule] 1 cap PO DAILY 06/20/18 Xalatan 0.005% Eye Drops - 1 drop OU DAILY 06/20/18 Cardiac Disorders: (CKD) CVA: (hepatic encephalopathy) COPD: Yes CHF: No Diabetes: No GI Disorders: Yes (GI bleed;GERD;ESOPHAGEAL VARICES) Disorders: Yes (CKD,STONES,BPH) HTN: Yes Hypercholesterolemia: Yes Liver Disease: Yes (CIRRHOSIS,HEP C) Seizures: Yes Thyroid Disease: No - Surgical History Abdominal Surgery: Yes (EGD,COLONOSCOPY) - Suicide/Smoking/Psychosocial Hx Smoking History: Current some day smoker Have you smoked in the past 12 months: No Number of Cigarettes Smoked Daily: 1 If you are a former smoker, when did you quit?: 2017 Information on smoking cessation initiated: No 'Breaking Loose' booklet given: 09/10/13 Hx Alcohol Use: No Drug/Substance Use Hx: No Substance Use Type: None Hx Substance Use Treatment: No *Physical Exam - Vital Signs Last Vital Signs Temp Pulse Resp BP Pulse Ox 98.4 F 87 18 161/88 98 09/15/18 19:16 09/15/18 19:16 09/15/18 19:16 09/15/18 19:16 09/15/18 19:16 Moderate Sedation - Procedure Monitoring Vital Signs: Procedure Monitoring Vital Signs Temperature 98.4 F 09/15/18 19:16 Pulse Rate 87 09/15/18 19:16 Respiratory Rate 18 09/15/18 19:16 Blood Pressure 161/88 09/15/18 19:16 O2 Sat by Pulse Oximetry (%) 98 09/15/18 19:16 Medical Decision Making - Medical Decision Making Patient not in room 3 09/15/18 20:31 Patient eloped before medical evaluation 09/15/18 20:51 *DC/Admit/Observation/Transfer Diagnosis at time of Disposition: Abdominal pain Qualifiers: Abdominal location: unspecified location Qualified Code(s): R10.9 - Unspecified abdominal pain - Discharge Dispostion Disposition: ELOPED - Referrals - Patient Instructions - Post Discharge Activity
== END 2018-09-15 20:38 | disposition left against medical advice (07) ==
LOC: JER 19:11
DX: R10.9 Unspecified abdominal pain (principal); I12.9 Hypertensive chronic kidney disease with stage 1 through stage 4 chronic kidney disease, or unspecified chronic kidney disease; N18.9 Chronic kidney disease, unspecified; F17.200 Nicotine dependence, unspecified, uncomplicated; J44.9 Chronic obstructive pulmonary disease, unspecified; K70.31 Alcoholic cirrhosis of liver with ascites; Z86.69 Personal history of other diseases of the nervous system and sense organs; Z87.442 Personal history of urinary calculi; B18.2 Chronic viral hepatitis C; Z87.19 Personal history of other diseases of the digestive system
CPT/HCPCS: 99281-25

== ENCOUNTER 2018-10-05 15:52 | Inpatient (IN) | payer OTHER ==
--- NOTE | 2018-10-05 16:16 | PDOC ---
Rapid Medical Evaluation Time Seen by Provider: 10/05/18 16:13 Medical Evaluation: Allergies Allergy/AdvReac Type Severity Reaction Status Date / Time Penicillins Allergy Unknown Verified 04/26/18 20:00 aspirin AdvReac Intermediate Verified 04/26/18 15:16 10/05/18 16:13 I performed a brief in-person evaluation of this patient. Chief complaint: Abd pain, diarrhea, hx cirrhosis but has stopped taking lactulose Pertinent physical exam findings: Abd mod distended with fluid wave, diffusely tender I have ordered the following: CBC, CMP, lipase, PT/INR, UA Patient will proceed to the ED for further evaluation. Discharge Disposition - Diagnosis Ascites, Abdominal pain - Referrals - Patient Instructions - Post Discharge Activity
[2018-10-05 17:09] LABS: BASO % 1.3 % (0-2.0); EOS % 4.8 % (0-4.5); HEMATOCRIT 34.7 % (35.4-49); HEMOGLOBIN 11.9 GM/dL (11.7-16.9); LYMPH % 12.6 % (8-40); MCH 30.2 pg (25.7-33.7); MCHC 34.1 g/dl (32.0-35.9); MEAN CELL VOLUME 88.4 fl (80-96); MEAN PLT VOLUME 10.1 fl (7.5-11.1); MONO % 17.9 % (3.8-10.2); NEUT % 63.4 % (42.8-82.8); PLATELET COUNT 81 K/MM3 (134-434); RBC 3.93 M/mm3 (4.00-5.60); RDW 18.4 % (11.9-15.9); WHITE BLOOD COUNT 6.3 K/mm3 (4.0-10.0)
[2018-10-05 17:26] LABS: INR 1.07 (0.83-1.09); PROTHROMBIN TIME (PATIENT) 12.6 SEC (9.7-13.0)
[2018-10-05 17:40] LABS: ALBUMIN 2.6 g/dl (3.4-5.0); ALK PHOS 225 U/L (45-117); ANION GAP 4 MMOL/L (8-16); BILIRUBIN,TOTAL 0.8 mg/dL (0.2-1); BLOOD UREA NITROGEN 17 mg/dL (7-18); CALCIUM 8.4 mg/dL (8.5-10.1); CHLORIDE 112 mmol/L (98-107); CO2 23 mmol/L (21-32); CREATININE 1.8 mg/dL (0.55-1.3); GLUCOSE,RANDOM 77 mg/dL (74-106); LIPASE 762 U/L (73-393); POTASSIUM 3.7 mmol/L (3.5-5.1); SGOT/AST 42 U/L (15-37); SGPT/ALT 31 U/L (13-61); SODIUM 140 mmol/L (136-145); TOT PROT 7.2 g/dl (6.4-8.2)
--- NOTE | 2018-10-05 19:36 | PDOC ---
History of Present Illness - General History Source: Patient Exam Limitations: No Limitations - History of Present Illness Initial Comments: 10/05/18 21:10 The patient is a 63-year-old male with a past medical history significant for Alcoholic cirrhosis, HTN, COPD, and CKD present to the emergency department with abdominal bloating. The patient presents with abdominal pressure, associated with pain with pushing on the abdomen. The patient reports the symptoms are accompanied with the feeling full; however, he hasnt had anything to eat. The patient reports associated symptoms of nausea, watery NBNB diarrhea since yesterday, and a productive cough with clear phlegm production for the past 3 days. The patient reports he had difficulty passing urine secondary to an enlarged prostate. The patient ambulates with a walker secondary to an unsteady gait. The patient states his last bowel movement was at noon, which was watery. Denies recent travel, chest pain, SOB, rashes, dysuria. Allergies: penicillins and ASA. PCP: GI: Dr. Bone Cards: Dr. Alexander. <Desiree Cordero - Last Filed: 10/05/18 22:46> <Jennifer Stephen - Last Filed: 10/05/18 23:04> - General Chief Complaint: Pain Stated Complaint: ABD PAIN/ LOWER BACK PAIN Time Seen by Provider: 10/05/18 16:13 Past History <Desiree Cordero - Last Filed: 10/05/18 22:46> - Past Medical History Cardiac Disorders: (CKD) CVA: (hepatic encephalopathy) COPD: Yes CHF: No Diabetes: No GI Disorders: Yes (GI bleed;GERD;ESOPHAGEAL VARICES) Disorders: Yes (CKD,STONES,BPH) HTN: Yes Hypercholesterolemia: Yes Liver Disease: Yes (CIRRHOSIS,HEP C) Seizures: Yes Thyroid Disease: No - Surgical History Abdominal Surgery: Yes (EGD,COLONOSCOPY) - Immunization History Immunization Up to Date: Yes - Suicide/Smoking/Psychosocial Hx Smoking History: Never smoked Have you smoked in the past 12 months: No Number of Cigarettes Smoked Daily: 1 If you are a former smoker, when did you quit?: 2017 Information on smoking cessation initiated: No 'Breaking Loose' booklet given: 09/10/13 Hx Alcohol Use: No Drug/Substance Use Hx: No Substance Use Type: None Hx Substance Use Treatment: No <Jennifer Stephen - Last Filed: 10/05/18 23:04> - Past Medical History Allergies/Adverse Reactions: Allergies Allergy/AdvReac Type Severity Reaction Status Date / Time Penicillins Allergy Unknown Verified 10/05/18 16:18 aspirin AdvReac Intermediate Verified 10/05/18 16:18 Home Medications: Ambulatory Orders Folic Acid 1 mg PO DAILY 11/29/16 levETIRAcetam [Keppra -] 500 mg PO BID tablet 12/06/16 Oxybutynin Chloride [Oxybutynin Chloride ER] 10 mg PO DAILY 11/16/17 Ropinirole HCl [Requip] 0.25 mg PO DAILY 11/16/17 Tamsulosin HCl [Flomax -] 0.4 mg PO BID 11/16/17 Spironolactone [Aldactone -] 50 mg PO DAILY #30 tablet 02/03/18 Furosemide [Lasix] 40 mg PO DAILY #30 tablet 02/07/18 Multivitamin with Iron [Multivitamins with Iron] 1 each PO DAILY 04/27/18 Pantoprazole Sodium [Protonix -] 20 mg PO DAILY 04/27/18 Melatonin 5 mg PO HS PRN tab 04/28/18 Budesonide/Formeterol Fumarate [SYMBICORT 160/4.5mcg -] 1 inh PO BID 06/20/18 Lactulose 20 gm PO TID 06/20/18 Lipase/Protease/Amylase [Kwame Curry 36,000 Units Capsule] 1 cap PO DAILY 06/20/18 Xalatan 0.005% Eye Drops - 1 drop OU DAILY 06/20/18 *Physical Exam - Vital Signs Last Vital Signs Temp Pulse Resp BP Pulse Ox 98.1 F 75 17 166/74 100 10/05/18 16:12 10/05/18 16:12 10/05/18 16:12 10/05/18 16:12 10/05/18 16:12 - Physical Exam Comments: 10/05/18 20:57 GENERAL: Awake, alert, and fully oriented, in no acute distress HEAD: No signs of trauma EYES: PERRLA, EOMI, sclera anicteric, conjunctiva clear ENT: Auricles normal inspection, hearing grossly normal, nares patent, oropharynx clear without exudates. Moist mucosa NECK: Normal ROM, supple, no lymphadenopathy, JVD, or masses LUNGS: +diminished breath sounds at the base. clear to auscultation bilaterally. No wheezes, and no crackles HEART: Regular rate and rhythm, normal S1 and S2, no murmurs, rubs or gallops ABDOMEN: +soft, tenderness to the umbilicus across the lower abdomen to the right and left. Didnt appreciate fluid waves. EXTREMITIES: No edema to the legs. Normal range of motion, no edema. No clubbing or cyanosis. No cords, erythema, or tenderness NEUROLOGICAL: Cranial nerves II through XII grossly intact. Normal speech. SKIN: Warm, Dry, normal turgor, no rashes or lesions noted. <Desiree Cordero - Last Filed: 10/05/18 22:46> - Vital Signs Last Vital Signs Temp Pulse Resp BP Pulse Ox 98.1 F 75 17 166/74 100 10/05/18 16:12 10/05/18 16:12 10/05/18 16:12 10/05/18 16:12 10/05/18 16:12 <Jennifer Stephen - Last Filed: 10/05/18 23:04> Moderate Sedation - Procedure Monitoring Vital Signs: Procedure Monitoring Vital Signs Temperature 98.1 F 10/05/18 16:12 Pulse Rate 75 10/05/18 16:12 Respiratory Rate 17 10/05/18 16:12 Blood Pressure 166/74 10/05/18 16:12 O2 Sat by Pulse Oximetry (%) 100 10/05/18 16:12 <Desiree Cordero - Last Filed: 10/05/18 22:46> - Procedure Monitoring Vital Signs: Procedure Monitoring Vital Signs Temperature 98.1 F 10/05/18 16:12 Pulse Rate 75 10/05/18 16:12 Respiratory Rate 17 10/05/18 16:12 Blood Pressure 166/74 10/05/18 16:12 O2 Sat by Pulse Oximetry (%) 100 10/05/18 16:12 <Jennifer Stephen - Last Filed: 10/05/18 23:04> ED Treatment Course - LABORATORY CBC & Chemistry Diagram: 10/05/18 16:47 10/05/18 16:47 - ADDITIONAL ORDERS Additional order review: Laboratory Results 10/05/18 10/05/18 16:47 16:47 PT with INR 12.60 INR 1.07 Sodium 140 Potassium 3.7 Chloride 112 H Carbon Dioxide 23 Anion Gap 4 L BUN 17 Creatinine 1.8 H Creat Clearance w eGFR 38.18 Random Glucose 77 Calcium 8.4 L Total Bilirubin 0.8 AST 42 H ALT 31 Alkaline Phosphatase 225 H Total Protein 7.2 Albumin 2.6 L Lipase 762 H 10/05/18 16:47 RBC 3.93 L MCV 88.4 MCHC 34.1 RDW 18.4 H MPV 10.1 Neutrophils % 63.4 D Lymphocytes % 12.6 D Monocytes % 17.9 H Eosinophils % 4.8 H Basophils % 1.3 <Desiree Cordero - Last Filed: 10/05/18 22:46> - LABORATORY CBC & Chemistry Diagram: 10/05/18 16:47 10/05/18 16:47 - ADDITIONAL ORDERS Additional order review: Laboratory Results 10/05/18 10/05/18 16:47 16:47 PT with INR 12.60 INR 1.07 Sodium 140 Potassium 3.7 Chloride 112 H Carbon Dioxide 23 Anion Gap 4 L BUN 17 Creatinine 1.8 H Creat Clearance w eGFR 38.18 Random Glucose 77 Calcium 8.4 L Total Bilirubin 0.8 AST 42 H ALT 31 Alkaline Phosphatase 225 H Total Protein 7.2 Albumin 2.6 L Lipase 762 H 10/05/18 16:47 RBC 3.93 L MCV 88.4 MCHC 34.1 RDW 18.4 H MPV 10.1 Neutrophils % 63.4 D Lymphocytes % 12.6 D Monocytes % 17.9 H Eosinophils % 4.8 H Basophils % 1.3 - RADIOLOGY Radiology Studies Ordered: Category Date Time Status ABDOMEN & PELVIS CT WITH CONTR [CT] Stat CT Scan 10/05/18 19:15 Ordered <Jennifer Stephen - Last Filed: 10/05/18 23:04> Medical Decision Making - Medical Decision Making 10/05/18 22:[address] Bone at 10:46 pm. <Desiree Cordero - Last Filed: 10/05/18 22:46> - Medical Decision Making 10/05/18 19:33 63yo male with hx of cirrhosis with diarrhea yesterday and abd pain today -hx of paracentesis in the past -Gi dr. bone -pmd: tricia -pt with diarrhea yesterday and today with lower abd pain -will obtain labs, ct abd/pelvis with contrast to eval for poss colitis -poss small amount of ascites, but not a big fluid wave -will monitor and reassess -denies blood in stool -no vomiting 10/05/18 21:49 pt with ckd - mild elevated cr from baseline pt with elevated lipase ct pending 10/05/18 22:43 pt with gallstones elevated lipase concern for gallstone pancreatitis, will discuss with dr. bone 10/05/18 23:03 pt updated on labs and imaging pain currently controlled still with ttp at the umbilicus pt willing to stay for further eval call placed to Dr. Bone case discussed with Bony from [facility] <Jennifer Stephen - Last Filed: 10/05/18 23:04> *DC/Admit/Observation/Transfer - Attestations Scribe Attestion: 10/05/18 20:57 Documentation prepared by Desiree Cordero, acting as medical hospital sales for Jennifer Stephen DO. <Desiree Cordero - Last Filed: 10/05/18 22:46> - Discharge Dispostion Decision to Admit order: Yes - Attestations Physician Attestion: 10/05/18 23:04 I, Dr. Jennifer Stephen DO, attest that this document has been prepared under my direction and personally reviewed by me in its entirety. I further attest, that it accurately reflects all work, treatment, procedures and medical decision -making performed by me. <Jennifer Stephen - Last Filed: 10/05/18 23:04> Diagnosis at time of Disposition: Ascites, Abdominal pain, Gallstone pancreatitis - Discharge Dispostion Condition at time of disposition: Fair - Referrals Referrals: Rangel Bernard MD [Primary Care Provider] - - Patient Instructions - Post Discharge Activity
[2018-10-05] MEDS ORDERED: SODIUM CHLORIDE 0.9% 1000 ML INFUS.BAG IV ONE (21:33)
[2018-10-05 21:50] LABS: URINE APPEARANCE SLCLOUDY; URINE BILIRUBIN NEGATIVE (<2.0 mg/dL); URINE COLOR DKYELLOW; URINE GLUCOSE (UA) NEGATIVE (NEGATIVE); URINE KETONE NEGATIVE (NEGATIVE); URINE LEUK ESTERASE 3+ (NEGATIVE); URINE NITRITE NEGATIVE (NEGATIVE); URINE PROTEIN 2+ (NEGATIVE)
[2018-10-05] MEDS ORDERED: LACTATED RINGERS SOLUTION 1000 ML INFUS.BAG IV ONE (22:45)
[2018-10-05 23:11] LABS: EPI CELLS RARE /HPF (FEW); URINE MUCUS RARE
--- NOTE | 2018-10-05 23:57 | PN ---
Teaching Attending Note Name of Resident: Micah Bishop ATTENDING PHYSICIAN STATEMENT I saw and evaluated the patient. I reviewed the resident's note and discussed the case with the resident. I agree with the resident's findings and plan as documented. SUBJECTIVE: Patient is a 63 year old man with PMH of Alcoholic liver cirrhosis, Penicillin allergy, HTN, COPD, and CKD who presents to the ER with abdominal bloating. The patient presents with abdominal pressure, associated with pain with pushing on the abdomen. The patient reports the symptoms are accompanied with the feeling fullness; however, he hasnt had anything to eat. The patient reports associated symptoms of nausea, watery NBNB diarrhea since yesterday, and a productive cough with clear phlegm for the past 3 days. The patient reports he had difficulty passing urine secondary to an enlarged prostate. The patient ambulates with a walker secondary to an unsteady gait. The patient states his last bowel movement was at noon, which was watery. Started having loose stools yesterday. Denies recent travel, chest pain, SOB, rashes, dysuria. OBJECTIVE: Alert Vital Signs Period Temp Pulse Resp BP Sys/Eisenberg Pulse Ox Last 24 Hr 98.1 F 75 17 166/74 100 HEENT: No Jaundice, eye redness or discharge, PERRLA, EOMI. Normocephalic, atraumatic. External ears are normal and hearing is grossly intact. No nasal discharge. Neck: Supple, nontender. No palpable adenopathy or thyromegaly. No JVD Chest: Good effort. Clear to auscultation and percussion. Heart: Regular. No S3, rub or murmur Abdomen: Distended, soft, periumblical and lower abdominal tenderness and no HSM. No rebound or guarding. Normal bowel sounds. Ext: Peripheral pulses intact. Left leg edema. Skin: Warm and dry. No petechiae, rash or ecchymosis. Neuro: Alert. Oriented x3. CN 2-12 grossly intact. No tremors or asterexis. Sensation grossly intact in all four extremities and DTR are symmetric. Psych: Appropriate mood and affect. Good insight. Current Medications Generic Name Dose Route Start Last Admin Trade Name Freq PRN Reason Stop Dose Admin Levofloxacin 750 mg in 150 mls @ 100 mls/hr 10/05/18 23:35 Levaquin 750 Mg Premixed Ivpb - IVPB 10/06/18 01:04 ONCE ONE Protocol Home Medications Medication Instructions Recorded Folic Acid 1 mg PO DAILY 11/29/16 levETIRAcetam [Keppra -] 500 mg PO BID tablet 12/06/16 Oxybutynin Chloride [Oxybutynin 10 mg PO DAILY 11/16/17 Chloride ER] Ropinirole HCl [Requip] 0.25 mg PO DAILY 11/16/17 Tamsulosin HCl [Flomax -] 0.4 mg PO BID 11/16/17 Spironolactone [Aldactone -] 50 mg PO DAILY #30 tablet 02/03/18 Furosemide [Lasix] 40 mg PO DAILY #30 tablet 02/07/18 Multivitamin with Iron 1 each PO DAILY 04/27/18 [Multivitamins with Iron] Pantoprazole Sodium [Protonix -] 20 mg PO DAILY 04/27/18 Melatonin 5 mg PO HS PRN tab 04/28/18 Budesonide/Formeterol Fumarate 1 inh PO BID 06/20/18 [SYMBICORT 160/4.5mcg -] Lactulose 20 gm PO TID 06/20/18 Lipase/Protease/Amylase [Creon Dr 1 cap PO DAILY 06/20/18 36,000 Units Capsule] Xalatan 0.005% Eye Drops - 1 drop OU DAILY 06/20/18 Abnormal Lab Results 10/05/18 10/05/18 10/05/18 16:47 16:47 21:30 RBC 3.93 L Hct 34.7 L RDW 18.4 H Plt Count 81 L Monocytes % 17.9 H Eosinophils % 4.8 H Chloride 112 H Anion Gap 4 L Creatinine 1.8 H Calcium 8.4 L AST 42 H Alkaline Phosphatase 225 H Albumin 2.6 L Lipase 762 H Urine Protein 2+ H Ur Leukocyte Esterase 3+ H ASSESSMENT AND PLAN: 1. UTI/Diarrhea - While gallstone pancreatitis is possible in view of elevated lipase, CT scan didnot show evidence of pancreatitis, but showed advanced hepatocellular disease, small and lobulated liver, ascites, cholelithiasis and splenomegaly. Small bladder calculi were also note. Will send stool for culture , analyses and C. Diff toxin. Consult IR for diagnostic paracentesis. Based on historical culture showing Enterococcus, will treat UTI with Levaquin and add Flagyl to cover for possible colitis. He is getting IV LR. Low platelets likely due to liver disease. EKG showed NSR with no significant ST-T wave changes. Consult GI and ID. 2. Hypoalbuminemia - Possibly due to combined effects of malnutrition, proteinuria and inflammation associated with comorbid chronic conditions. Will ensure adequate dietary protein intake and also consult wind turbine engineer. 3. CKD - Cause unclear. Consult nephrology and avoid nephrotoxic agents such as NSAIDS, aminoglycosides, contrast dyes and certain Alternative medicine products. 4. Anemia - Likely multifactorial. Will do basic anemia work up including serial stool guaiacs, reticulocyte count and iron studies. 5. Alcohol abuse - Though he says he has not had a drink since January 2018, we will monitor him closely. Implement CIWA Ativan alcohol withdrawal protocol, seizure, fall and aspiration precautions. Treat with thiamine and folic acid and monitor electrolytes (Ca,Mg,K,P). 6. Uncontrolled Hypertension - Restart outpatient antihypertensive drugs and revise regimen to ensure smooth [id number] good BP control. Nonpharmacologic measures to control hypertension like weight loss, salt restriction and exercise discussed. 7. DVT prophylaxis -.Lovenox 40 mg SQ q 24 hours and monitor platelet count daily 8. Advance directives - Full code
--- NOTE | 2018-10-06 00:42 | HP ---
CHIEF COMPLAINT: Abdominal fullness, cramps and soreness PCP: Dr. Lopez HISTORY OF PRESENT ILLNESS: Pt. is a 63 y.o. M presenting with abdominal fullness and soreness associated with watery diarrhea x1 day. Pt. stated that he had a very dark colored bowel movement and was concerned that it could be blood. Pt. states that he did not look at his watery bowel movements and notes that they could have been dark as well. Pt. endorses froilan-umbilical abdominal pain 8-9/10 in severity that radiates bilaterally to the flanks. Pt. denies any fever or chills. Pt. endorses a productive cough for the last 3 days with white phlegm. Pt. endorses baseline dyspnea on exertion and can walk 1/4 block before feeling short of breath. Pt. endorses difficulty urinating and states that he likes to urinate when he is defecating because it is easier. Pt. endorses unsteady gait and uses walker to ambulate. Pt. denies any chest pain and shortness of breath at rest. Pt. denies any dysuria, hematuria or polyuria and states his urine is usually clear or yellow depending on what he drinks. Pt. denies any dizziness, lightheadedness, numbess/tingling, changes in vision, hallucinations, bugs crawling on skin, nausea or vomiting at this time. ER course was notable for: (1)labs, LA, Lipase (2)UA, CT-A/P (3)IVF(1L NS, 1L LR), Levaquin Recent Travel: No PAST MEDICAL HISTORY: Recurrent UTI, HTN, COPD, CKD(Stage 3a vs 3b?), Esophageal varices, Hep C(Treated?), Seizure Disorder( last seizure 15 years ago ), Restless leg syndrome PAST SURGICAL HISTORY: Social History: Smoking: Smoke 1PPD for 40-50 years, Quit 2016 Alcohol: Pt. states used to drink 1 pint of vodka a day. Last Drink was January of last year. Drugs: "I've done every drug except PCP and sniffing glue," Last drug use was crack cocaine ~1 year ago. Family History: Grandfather from Heat Failure, Father had ESRD, Brother has Sickle Cell Allergies Penicillins Allergy (Unknown, Verified 10/05/18 16:18) aspirin Adverse Reaction (Intermediate, Verified 10/05/18 16:18) HOME MEDICATIONS: Home Medications Medication Instructions Recorded Folic Acid 1 mg PO DAILY 11/29/16 levETIRAcetam [Keppra -] 500 mg PO BID tablet 12/06/16 Oxybutynin Chloride [Oxybutynin 10 mg PO DAILY 11/16/17 Chloride ER] Ropinirole HCl [Requip] 0.25 mg PO DAILY 11/16/17 Tamsulosin HCl [Flomax -] 0.4 mg PO BID 11/16/17 Spironolactone [Aldactone -] 50 mg PO DAILY #30 tablet 02/03/18 Furosemide [Lasix] 40 mg PO DAILY #30 tablet 02/07/18 Multivitamin with Iron 1 each PO DAILY 04/27/18 [Multivitamins with Iron] Pantoprazole Sodium [Protonix -] 20 mg PO DAILY 04/27/18 Melatonin 5 mg PO HS PRN tab 04/28/18 Budesonide/Formeterol Fumarate 1 inh PO BID 06/20/18 [SYMBICORT 160/4.5mcg -] Lactulose 20 gm PO TID 06/20/18 Lipase/Protease/Amylase [Creon Dr 1 cap PO DAILY 06/20/18 36,000 Units Capsule] Xalatan 0.005% Eye Drops - 1 drop OU DAILY 06/20/18 REVIEW OF SYSTEMS CONSTITUTIONAL: Absent: fever, chills, diaphoresis, generalized weakness, malaise, loss of appetite, weight change HEENT: Absent: rhinorrhea, nasal congestion, throat pain, throat swelling, difficulty swallowing, mouth swelling, ear pain, eye pain, visual changes CARDIOVASCULAR: Absent: chest pain, syncope, palpitations, irregular heart rate, lightheadedness , peripheral edema RESPIRATORY: cough, dyspnea with exertion, Absent: shortness of breath, orthopnea, wheezing, stridor, hemoptysis GASTROINTESTINAL: abdominal pain, diarrhea, melena,nausea, Absent: abdominal distension, vomiting, constipation, hematochezia GENITOURINARY: hesitancy Absent: dysuria, frequency, urgency, hematuria, flank pain, genital pain MUSCULOSKELETAL: Absent: myalgia, arthralgia, joint swelling, back pain, neck pain SKIN: Absent: rash, itching, pallor HEMATOLOGIC/IMMUNOLOGIC: Absent: easy bleeding, easy bruising, lymphadenopathy, frequent infections ENDOCRINE: Absent: unexplained weight gain, unexplained weight loss, heat intolerance, cold intolerance NEUROLOGIC: unsteady gait Absent: headache, focal weakness or paresthesias, dizziness, seizure, mental status changes, bladder or bowel incontinence PSYCHIATRIC: Absent: anxiety, depression, suicidal or homicidal ideation, hallucinations. PHYSICAL EXAMINATION Vital Signs - 24 hr 10/05/18 16:12 Temperature 98.1 F Pulse Rate 75 Respiratory 17 Rate Blood Pressure 166/74 O2 Sat by Pulse 100 Oximetry (%) GENERAL: Awake, alert, and fully oriented, in no acute distress. HEAD: Normal with no signs of trauma. EYES: Pupils equal, round and reactive to light, extraocular movements intact, sclera anicteric, conjunctiva clear. No lid lag. EARS, NOSE, THROAT: Ears normal, nares patent, oropharynx clear without exudates. Moist mucous membranes. NECK: Normal range of motion, supple without lymphadenopathy, JVD, or masses. LUNGS: Breath sounds equal, clear to auscultation bilaterally. No wheezes, and no crackles. No accessory muscle use. HEART: Regular rate and rhythm, normal S1 and S2 without murmur, rub or gallop. ABDOMEN: Soft, nontender, not distended, normoactive bowel sounds, no guarding, no rebound, no masses. No hepatomegaly or splenomegaly. MUSCULOSKELETAL: Normal range of motion at all joints. No bony deformities or tenderness. No CVA tenderness. UPPER EXTREMITIES: 2+ pulses, warm, well-perfused. No cyanosis. No clubbing. No peripheral edema. LOWER EXTREMITIES: 2+ pulses, warm, well-perfused. No calf tenderness. No peripheral edema. NEUROLOGICAL: Cranial nerves II-XII intact. Normal speech. Normal gait. PSYCHIATRIC: Cooperative. Good eye contact. Appropriate mood and affect. SKIN: Warm, dry, normal turgor, no rashes or lesions noted, normal capillary refill. Laboratory Results - last 24 hr 10/05/18 10/05/18 10/05/18 16:46 16:47 16:47 WBC 6.3 RBC 3.93 L Hgb 11.9 Hct 34.7 L MCV 88.4 MCH 30.2 D MCHC 34.1 RDW 18.4 H Plt Count 81 L MPV 10.1 Absolute Neuts (auto) 4.0 Neutrophils % 63.4 D Lymphocytes % 12.6 D Monocytes % 17.9 H Eosinophils % 4.8 H Basophils % 1.3 Nucleated RBC % 0 PT with INR 12.60 INR 1.07 PTT (Actin FS) Sodium Potassium Chloride Carbon Dioxide Anion Gap BUN Creatinine Creat Clearance w eGFR Random Glucose Lactic Acid Calcium Total Bilirubin AST ALT Alkaline Phosphatase Total Protein Albumin Triglycerides 59 Lipase Urine Color Urine Appearance Urine pH Ur Specific [place] Urine Protein Urine Glucose (UA) Urine Ketones Urine Blood Urine Nitrite Urine Bilirubin Urine Urobilinogen Ur Leukocyte Esterase Urine WBC (Auto) Urine RBC (Auto) Ur Epithelial Cells Urine Mucus Stool Occult Blood Blood Type Antibody Screen 10/05/18 10/05/18 10/05/18 16:47 20:53 20:54 WBC RBC Hgb Hct MCV MCH MCHC RDW Plt Count MPV Absolute Neuts (auto) Neutrophils % Lymphocytes % Monocytes % Eosinophils % Basophils % Nucleated RBC % PT with INR INR PTT (Actin FS) 35.5 Sodium 140 Potassium 3.7 Chloride 112 H Carbon Dioxide 23 Anion Gap 4 L BUN 17 Creatinine 1.8 H Creat Clearance w eGFR 38.18 Random Glucose 77 Lactic Acid 1.3 Calcium 8.4 L Total Bilirubin 0.8 AST 42 H ALT 31 Alkaline Phosphatase 225 H Total Protein 7.2 Albumin 2.6 L Triglycerides Lipase 762 H Urine Color Urine Appearance Urine pH Ur Specific [place] Urine Protein Urine Glucose (UA) Urine Ketones Urine Blood Urine Nitrite Urine Bilirubin Urine Urobilinogen Ur Leukocyte Esterase Urine WBC (Auto) Urine RBC (Auto) Ur Epithelial Cells Urine Mucus Stool Occult Blood Blood Type Antibody Screen 10/05/18 10/05/18 10/06/18 20:54 21:30 00:25 WBC RBC Hgb Hct MCV MCH MCHC RDW Plt Count MPV Absolute Neuts (auto) Neutrophils % Lymphocytes % Monocytes % Eosinophils % Basophils % Nucleated RBC % PT with INR INR PTT (Actin FS) Sodium Potassium Chloride Carbon Dioxide Anion Gap BUN Creatinine Creat Clearance w eGFR Random Glucose Lactic Acid Calcium Total Bilirubin AST ALT Alkaline Phosphatase Total Protein Albumin Triglycerides Lipase Urine Color Dkyellow Urine Appearance Slcloudy Urine pH 5.0 Ur Specific [place] 1.021 Urine Protein 2+ H Urine Glucose (UA) Negative Urine Ketones Negative Urine Blood Negative Urine Nitrite Negative Urine Bilirubin Negative Urine Urobilinogen 2.0 Ur Leukocyte Esterase 3+ H Urine WBC (Auto) 113 Urine RBC (Auto) 12 Ur Epithelial Cells Rare Urine Mucus Rare Stool Occult Blood Negative Blood Type Cancelled Antibody Screen Cancelled ASSESSMENT/PLAN: Pt. is a 63 y.o. M w/ PMHx. of Recurrent UTI, HTN, COPD, CKD(Stage 3a vs 3b?), Esophageal varices, Hep C(Treated?), Seizure Disorder( last seizure 15 years ago ), Restless leg syndrome presents with abdominal fullness and soreness associated with watery diarrhea x1 day. #Abdominal Pain 2/2 Acute Pancreatitis vs. Colitis vs. Cystitis -CT-A/P: negative for acute pathology, shows advance hepatocellular disease( small, lobulated liver, ascites, and splenomegaly), non-obstructing cholelithiasis, small bladder calculi, arthritic changes @L4-S1 -UA +, f/u UCx. Pt.without fever, or elevated WBCs, deferred BCx. -Received Levaquin 750mg (EKG showed NSR, QTc: 467) in ED, Pt. has Hx. of Seizures and prolonged QTc, would consider using Carbapenem, Doxycycline or Clindamycin considering Penicillin allergy. -f/u stool cultures, daily labs and lactoferrin, low suspicion for C. Diff as Pt. has had no recent Abx. use however if work-up is still equivocal would consider C.Diff Ag. #HTN-uncontrolled -resume home meds: Aldactone and Lasix -BP may be elevated 2/2 pain, will reassess when pain is decreased, may need to add medications and consider drug history when adding (avoid BB). #FEN -LR -monitor electrolytes and replete as needed -NPO #DVT Ppx. -Lovenox 40mg SQ -MUST monitor platelets daily(currently 81k) Visit type - Emergency Visit Emergency Visit: Yes ED Registration Date: 10/05/18 Care time: The patient presented to the Emergency Department on the above date and was hospitalized for further evaluation of their emergent condition. - New Patient This patient is new to me today: Yes Date on this admission: 10/06/18 - Critical Care Critical Care patient: No
[2018-10-06] MEDS ORDERED: metroNIDAZOLE 250 MG TABLET PO ONE (01:29)
[2018-10-06] MEDS: rOPINIRole HCL 0.25 MG TABLET PO SCH ×2 (02:29→22:54)
[2018-10-06] MEDS: MELATONIN 5 MG TABLETS PO PRN (03:04)
[2018-10-06 04:21] VITALS: BMI 25.1
[2018-10-06 07:10] LABS: BASO % 1.1 % (0-2.0); EOS % 6.6 % (0-4.5); HEMATOCRIT 32.2 % (35.4-49); LYMPH % 15.1 % (8-40); MCH 30.2 pg (25.7-33.7); MCHC 34.2 g/dl (32.0-35.9); MEAN CELL VOLUME 88.2 fl (80-96); MONO % 19.5 % (3.8-10.2); NEUT % 57.7 % (42.8-82.8); PLATELET COUNT 76 K/MM3 (134-434); RBC 3.65 M/mm3 (4.00-5.60); WHITE BLOOD COUNT 5.6 K/mm3 (4.0-10.0)
[2018-10-06 07:18] LABS: INR 1.2 (0.83-1.09); PROTHROMBIN TIME (PATIENT) 14.2 SEC (9.7-13.0)
[2018-10-06 07:54] LABS: ALBUMIN 2.2 g/dl (3.4-5.0); ALK PHOS 169 U/L (45-117); ANION GAP 4 MMOL/L (8-16); BILIRUBIN,TOTAL 1.1 mg/dL (0.2-1); BLOOD UREA NITROGEN 17 mg/dL (7-18); CHLORIDE 113 mmol/L (98-107); CO2 24 mmol/L (21-32); CREATININE 1.6 mg/dL (0.55-1.3); GLUCOSE,RANDOM 70 mg/dL (74-106); MAGNESIUM 1.9 mg/dL (1.8-2.4); PHOSPHOROUS 2.6 mg/dL (2.5-4.9); POTASSIUM 3.6 mmol/L (3.5-5.1); SGOT/AST 34 U/L (15-37); SGPT/ALT 25 U/L (13-61); SODIUM 140 mmol/L (136-145); TOT PROT 6.3 g/dl (6.4-8.2)
--- NOTE | 2018-10-06 08:57 | CON.GI ---
Consult Consult Specialty:: GI Referred by:: Hospitalist Service Reason for Consultation:: Abdominal pain and diarrhea - History of Present Illness Chief Complaint: I had abdominal pain and diarrhea History of Present Illness: 63 y/o male with a history of alcoholic cirrhosis, Hepatitis C, esophageal varices with banding, hypoalbumienemia, GERD presenting to [facility] ER for evaluation of 2 day history of abdominal pain and diarrhea. He thinks the diarrhea may have been dark. He points to the suprapubic region when asked where the pain was. Abdominal CT revealed small ascites, uricary bladder calculi , cholelithiasis as well as splenomegaly. He has had serial banding of varcies as he was actively using cocaine and could safely be beta blocked. He is non compliant with a low sodium diet. He denies fevers/chills. He currently states that he is starving. 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 Cardio/Vascular: Yes: HTN Pulmonary: Yes: COPD Gastrointestinal: Yes: Esophageal Varices (Unclear by his history), GERD Hepatobiliary: Yes: Cirrhosis, Hepatitis C Renal/: Yes: Renal Inusuff, BPH - Alcohol/Substance Use Hx Alcohol Use: No History of Substance Use: reports: Cocaine (states abstinence for 1 year), Heroin - Smoking History Smoking history: Never smoked Have you smoked in the past 12 months: No Aproximately how many cigarettes per day: 1 If you are a former smoker, when did you quit?: 2017 - Social History Usual Living Arrangement: Alone ADL: Support Services Occupation: not currently working Place of : [facility] History of Recent Travel: No Home Medications - Allergies Allergies/Adverse Reactions: Allergies Allergy/AdvReac Type Severity Reaction Status Date / Time Penicillins Allergy Unknown Verified 10/05/18 16:18 aspirin AdvReac Intermediate Verified 10/05/18 16:18 - Home Medications Home Medications: Ambulatory Orders Folic Acid 1 mg PO DAILY 11/29/16 levETIRAcetam [Keppra -] 500 mg PO BID tablet 12/06/16 Oxybutynin Chloride [Oxybutynin Chloride ER] 10 mg PO DAILY 11/16/17 Ropinirole HCl [Requip] 0.25 mg PO DAILY 11/16/17 Tamsulosin HCl [Flomax -] 0.4 mg PO BID 11/16/17 Spironolactone [Aldactone -] 50 mg PO DAILY #30 tablet 02/03/18 Furosemide [Lasix] 40 mg PO DAILY #30 tablet 02/07/18 Multivitamin with Iron [Multivitamins with Iron] 1 each PO DAILY 04/27/18 Pantoprazole Sodium [Protonix -] 20 mg PO DAILY 04/27/18 Melatonin 5 mg PO HS PRN tab 04/28/18 Budesonide/Formeterol Fumarate [SYMBICORT 160/4.5mcg -] 1 inh PO BID 06/20/18 Lactulose 20 gm PO TID 06/20/18 Lipase/Protease/Amylase [Kwame Curry 36,000 Units Capsule] 1 cap PO DAILY 06/20/18 Xalatan 0.005% Eye Drops - 1 drop OU DAILY 06/20/18 Family Disease History - Family Disease History Other Family History: No family history of colorectal cancer or other GI malignancy Review of Systems - Review of Systems Constitutional: denies: Chills Cardiovascular: denies: Chest Pain Respiratory: denies: Cough Gastrointestinal: reports: Abdominal Pain, Diarrhea. denies: Rectal Bleeding, Vomiting, Vomiting Blood Physical Exam-GI Vital Signs: Vital Signs Temperature 98.3 F 10/06/18 05:45 Pulse Rate 71 10/06/18 05:45 Respiratory Rate 18 10/06/18 05:45 Blood Pressure 137/82 10/06/18 05:45 O2 Sat by Pulse Oximetry (%) 97 10/06/18 01:32 Constitutional: Yes: Calm Eyes: No: Sclera Icterus Cardiovascular: Yes: Regular Rate and Rhythm, Murmur Respiratory: Yes: CTA Bilaterally Gastrointestinal Inspection: No: Distention ...Auscultate: Yes: Normoactive Bowel Sounds ...Palpate: Yes: Tenderness (TTP suprapubic region) ...Percussion: No: Tympanitic Edema: No (No LE edema) Neurological: Yes: Alert. No: Asterixis Labs: CBC, BMP 10/06/18 06:45 10/06/18 06:45 INR, PTT INR 1.20 (0.83-1.09) H 10/06/18 06:45 Hepatic Panel Total Bilirubin 1.1 mg/dL (0.2-1) H 10/06/18 06:45 AST 34 U/L (15-37) 10/06/18 06:45 ALT 25 U/L (13-61) 10/06/18 06:45 Alkaline Phosphatase 169 U/L (45-117) H 10/06/18 06:45 Albumin 2.2 g/dl (3.4-5.0) L 10/06/18 06:45 Imaging - Results Cat Scan: Report Reviewed, Image Reviewed Problem List - Problems (1) Abdominal pain Assessment/Plan: Tenderness seems focused in the pelvis. He described diarrhea along with the cramping pain and has no further diarrhea. Rectal exam failed to reveal blood or melena and H/H stable. ER diagnosis was gallstone pancreatitis. LFT pattern has been chronic in nature and there was no ductal dulatation on recent abdominal US. He did have stones in his bladder so I question if he may have passed a ureteral stone into the bladder contributing to his pain. He is hungry and there was no evidence of acute pancreatitis on CT scan. I advanced him to a sodium controlled full liquid diet Non contrast MRI/MRCP ordered He states that he has an upcoming appointment with me in October. I advised that he keep it Code(s): R10.9 - UNSPECIFIED ABDOMINAL PAIN
[2018-10-06 09:29] LABS: LIPASE 248 U/L (73-393)
[2018-10-06] MEDS ORDERED: ENOXAPARIN NA (PORCINE) 40 MG/0.4 ML DISP.SYRIN SQ SCH (10:00)
[2018-10-06] MEDS: MULTIVITAMINS THER W-MINERALS COMBO TABLET (FP) PO SCH (10:21)
[2018-10-06] MEDS: PANTOPRAZOLE 20 MG TABLET (FP) PO SCH (10:21)
[2018-10-06] MEDS: SPIRONOLACTONE 25 MG TABLET (FP) PO SCH (10:21)
[2018-10-06] MEDS: levETIRAcetam 500 MG TABLET (FP) PO SCH ×2 (10:21→22:54)
[2018-10-06] MEDS: TAMSULOSIN HCL 0.4 MG CAP PO SCH ×2 (10:22→22:54)
[2018-10-06] MEDS: BUDESONIDE/FORMETEROL FUMARATE 160/4.5 mcg INHALER IH SCH ×2 (10:22→22:53)
[2018-10-06] MEDS: FOLIC ACID 1 MG TABLET (FP) PO SCH (10:22)
[2018-10-06] MEDS: SOLIFENACIN SUCCINATE 5 MG TAB (FP) PO SCH (10:22)
[2018-10-06] MEDS: FUROSEMIDE 40 MG TABLET (FP) PO SCH (10:22)
[2018-10-06] MEDS: LIPASE/PROTEASE/AMYLASE 36,000 UNIT CAPSULE PO SCH ×3 (10:22→18:05)
--- NOTE | 2018-10-06 10:56 | EKG ---
Test Reason : Blood Pressure : / mmHG Vent. Rate : 073 BPM Atrial Rate : 073 BPM P-R Int : 160 ms QRS Dur : 086 ms QT Int : 424 ms P-R-T Axes : 065 -11 056 degrees QTc Int : 467 ms NORMAL SINUS RHYTHM NORMAL ECG Confirmed by LIZA MRORIS MD ([id number]) on 10/06/2018 10:56:23 AM Referred By: Confirmed By:LIZA MORRIS MD
--- NOTE | 2018-10-06 11:47 | PN ---
Progress Note (short form) - Note Progress Note: ID consult dictated imp/reccd 63 yo man with liver cirrhosis, treated hep c gastric varices BPH admitted with abdominal pain for 3 days having difficulty pushing the urine out +uri symptoms one episode diarrhea - dark but FOBT negative on exam has suprapubic abdominal pain no cvat crackles right lung base labs notable for pyuria received levaquin last night urine culture just sent this am probable UTI ?penicillin allergy would continue levaquin 250 mg daily for uti f/u cultures will need urology eval as outpt as he has bph and bladder stones liver cirrhosis- for MRCP thrombocytopenia CKD at baseline
--- NOTE | 2018-10-06 12:31 | PN ---
Physical Exam: SUBJECTIVE: Patient seen and examined at bedside. Abdominal pain improved. Ongoing dysuria. One further episode of diarrhea since admission, no blood noted in stool. OBJECTIVE: Vital Signs Period Temp Pulse Resp BP Sys/Eisenberg Pulse Ox Last 24 Hr 98.1 F-98.3 F 64-75 17-20 137-166/74-86 97-100 GENERAL: A&Ox3, NAD HEENT: NC/AT, PERRLA, EOMI, MMM NECK: Trachea midline, full range of motion, supple. LUNGS: CTA b/l HEART: RRR no m/r/g ABDOMEN: non-tender, distended, tympanitic, trace fluid wave, at baseline from prior encounters EXTREMITIES: 2+ pulses, warm, well-perfused, no edema. 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 No asterixis PSYCH: Normal mood, normal affect. SKIN: Warm, dry, normal turgor, no rashes or lesions noted Laboratory Results - last 24 hr 10/05/18 10/05/18 10/05/18 16:46 16:47 16:47 WBC 6.3 RBC 3.93 L Hgb 11.9 Hct 34.7 L MCV 88.4 MCH 30.2 D MCHC 34.1 RDW 18.4 H Plt Count 81 L MPV 10.1 Absolute Neuts (auto) 4.0 Neutrophils % 63.4 D Lymphocytes % 12.6 D Monocytes % 17.9 H Eosinophils % 4.8 H Basophils % 1.3 Nucleated RBC % 0 PT with INR 12.60 INR 1.07 PTT (Actin FS) Sodium Potassium Chloride Carbon Dioxide Anion Gap BUN Creatinine Creat Clearance w eGFR Random Glucose Lactic Acid Calcium Phosphorus Magnesium Total Bilirubin AST ALT Alkaline Phosphatase Total Protein Albumin Triglycerides 59 Lipase Urine Color Urine Appearance Urine pH Ur Specific [place] Urine Protein Urine Glucose (UA) Urine Ketones Urine Blood Urine Nitrite Urine Bilirubin Urine Urobilinogen Ur Leukocyte Esterase Urine WBC (Auto) Urine RBC (Auto) Ur Epithelial Cells Urine Mucus Stool Occult Blood Blood Type Antibody Screen 10/05/18 10/05/18 10/05/18 16:47 20:53 20:54 WBC RBC Hgb Hct MCV MCH MCHC RDW Plt Count MPV Absolute Neuts (auto) Neutrophils % Lymphocytes % Monocytes % Eosinophils % Basophils % Nucleated RBC % PT with INR INR PTT (Actin FS) 35.5 Sodium 140 Potassium 3.7 Chloride 112 H Carbon Dioxide 23 Anion Gap 4 L BUN 17 Creatinine 1.8 H Creat Clearance w eGFR 38.18 Random Glucose 77 Lactic Acid 1.3 Calcium 8.4 L Phosphorus Magnesium Total Bilirubin 0.8 AST 42 H ALT 31 Alkaline Phosphatase 225 H Total Protein 7.2 Albumin 2.6 L Triglycerides Lipase 762 H Urine Color Urine Appearance Urine pH Ur Specific [place] Urine Protein Urine Glucose (UA) Urine Ketones Urine Blood Urine Nitrite Urine Bilirubin Urine Urobilinogen Ur Leukocyte Esterase Urine WBC (Auto) Urine RBC (Auto) Ur Epithelial Cells Urine Mucus Stool Occult Blood Blood Type Antibody Screen 10/05/18 10/05/18 10/06/18 20:54 21:30 00:25 WBC RBC Hgb Hct MCV MCH MCHC RDW Plt Count MPV Absolute Neuts (auto) Neutrophils % Lymphocytes % Monocytes % Eosinophils % Basophils % Nucleated RBC % PT with INR INR PTT (Actin FS) Sodium Potassium Chloride Carbon Dioxide Anion Gap BUN Creatinine Creat Clearance w eGFR Random Glucose Lactic Acid Calcium Phosphorus Magnesium Total Bilirubin AST ALT Alkaline Phosphatase Total Protein Albumin Triglycerides Lipase Urine Color Dkyellow Urine Appearance Slcloudy Urine pH 5.0 Ur Specific [place] 1.021 Urine Protein 2+ H Urine Glucose (UA) Negative Urine Ketones Negative Urine Blood Negative Urine Nitrite Negative Urine Bilirubin Negative Urine Urobilinogen 2.0 Ur Leukocyte Esterase 3+ H Urine WBC (Auto) 113 Urine RBC (Auto) 12 Ur Epithelial Cells Rare Urine Mucus Rare Stool Occult Blood Negative Blood Type Cancelled Antibody Screen Cancelled 10/06/18 10/06/18 10/06/18 06:45 06:45 06:45 WBC 5.6 RBC 3.65 L Hgb 11.0 L Hct 32.2 L MCV 88.2 MCH 30.2 MCHC 34.2 RDW 18.0 H Plt Count 76 L MPV 10.0 Absolute Neuts (auto) 3.2 Neutrophils % 57.7 Lymphocytes % 15.1 Monocytes % 19.5 H Eosinophils % 6.6 H Basophils % 1.1 Nucleated RBC % 0 PT with INR 14.20 H INR 1.20 H PTT (Actin FS) Sodium 140 Potassium 3.6 Chloride 113 H Carbon Dioxide 24 Anion Gap 4 L BUN 17 Creatinine 1.6 H Creat Clearance w eGFR 43.74 Random Glucose 70 L Lactic Acid Calcium 8.0 L Phosphorus 2.6 Magnesium 1.9 Total Bilirubin 1.1 H AST 34 ALT 25 Alkaline Phosphatase 169 H Total Protein 6.3 L Albumin 2.2 L Triglycerides Lipase 248 Urine Color Urine Appearance Urine pH Ur Specific [place] Urine Protein Urine Glucose (UA) Urine Ketones Urine Blood Urine Nitrite Urine Bilirubin Urine Urobilinogen Ur Leukocyte Esterase Urine WBC (Auto) Urine RBC (Auto) Ur Epithelial Cells Urine Mucus Stool Occult Blood Blood Type Antibody Screen Active Medications Generic Name Dose Route Start Last Admin Trade Name Freq PRN Reason Stop Dose Admin Budesonide/Formoterol Fumarate 1 puff 10/06/18 10:00 10/06/18 10:22 Symbicort 160/4.5mcg - IH 1 puff BID PIERO Administration Enoxaparin Sodium 40 mg 10/06/18 10:00 Lovenox - SQ DAILY PIERO Folic Acid 1 mg 10/06/18 10:00 10/06/18 10:22 Folic Acid - PO 1 mg DAILY PIERO Administration Furosemide 40 mg 10/06/18 10:00 10/06/18 10:22 Lasix - PO 40 mg DAILY PIERO Administration Levofloxacin 250 mg in 50 mls @ 50 mls/hr 10/07/18 10:00 Levaquin 250 Mg Premixed Ivpb - IVPB DAILY [facility] Protocol Latanoprost 1 drop 10/06/18 22:00 Xalatan 0.005% Eye Drops - OU HS PIERO Levetiracetam 500 mg 10/06/18 10:00 10/06/18 10:21 Keppra - PO 500 mg BID PIERO Administration Melatonin 5 mg 10/06/18 01:53 10/06/18 03:04 Melatonin PO 5 mg HS PRN Administration INSOMNIA Multivitamins/Minerals 1 each 10/06/18 10:00 10/06/18 10:21 Theragran-M PO 1 each DAILY PIERO Administration Pancrelipase 1 cap 10/06/18 08:00 10/06/18 10:[address] 36,000 Units Capsule PO 1 cap TIDCM PIERO Administration Pantoprazole Sodium 20 mg 10/06/18 10:00 10/06/18 10:21 Protonix - PO 20 mg DAILY PIERO Administration Ropinirole HCl 0.25 mg 10/06/18 02:00 10/06/18 02:29 Requip - PO 0.25 mg HS PIERO Administration Solifenacin 5 mg 10/06/18 10:00 10/06/18 10:22 Vesicare - PO 5 mg DAILY PIERO Administration Spironolactone 50 mg 10/06/18 10:00 10/06/18 10:21 Aldactone - PO 50 mg DAILY PIERO Administration Tamsulosin HCl 0.4 mg 10/06/18 10:00 10/06/18 10:22 Flomax - PO 0.4 mg BID PIERO Administration ASSESSMENT/PLAN: 63 y/o M w/ PMHx cirrhosis, hepatitis C, COPD, pancreatic insufficiency, EtOH/ cocaine/heroin abuse, esophageal varices s/p banding, Sz disorder in remission, RLS, p/w 1 day h/o of abdominal pain and discomfort, watery diarrhea, single dark stool noted, additionally +dysuria on ROS. Admitted for probable UTI with positive UA. #UTI -afebrile w/o leukocytosis throughout -UA: WBC 113, LE 3+; UCx pending -ID consulted -cont Levaquin -cont Flomax -cont Vesicare #abd pain and diarrhea in setting of known cirrhosis 2/2 hepatitis C and pancreatic insufficiency -known chronic LFT and chemical hepatobiliary abnormalities -GI consulted -MRCP pending -cont Lasix, Aldactone, PTX, Creon -Na-controlled full liquid diet #Sz disorder -cont Keppra #RLS -cont ropinirole #COPD -cont symbicort #FEN -no IVF -monitor and replete electrolytes -Na-controlled full liquid diet, adv as per GI #PPx -DVT: Lovenox sq -GI: PTX #code -full #dispo -cont to monitor on med/surg Visit type - Emergency Visit Emergency Visit: No - New Patient This patient is new to me today: Yes Date on this admission: 10/06/18 - Critical Care Critical Care patient: No
[2018-10-06] MEDS ORDERED: ACETAMINOPHEN 325 MG TABLET (FP) PO ONE (14:14)
--- NOTE | 2018-10-06 18:42 | PN ---
Teaching Attending Note Name of Resident: Phil Weiss ATTENDING PHYSICIAN STATEMENT I saw and evaluated the patient. I reviewed the resident's note and discussed the case with the resident. I agree with the resident's findings and plan as documented. SUBJECTIVE: Still having some abdominal discomfort and watery diarrhea. Dark - no hematochezia. No fever/chills/nausea/vomiting. OBJECTIVE: Afebrile, Hemodynamically Stable. Last Vital Signs Temp Pulse Resp BP Pulse Ox 98 F 71 18 155/84 98 10/06/18 14:08 10/06/18 14:08 10/06/18 14:08 10/06/18 14:08 10/06/18 10:00 HEENT - Atraumatic, Normocephalic Heart - S1, S2, RRR Lungs - clear to auscultation Abdomen - Soft, mild distension, non-tender. Bowel Sounds normal Extremities - No calf tenderness. Neuro - AAO x 3. Tone/Power normal all 4 extremities. Laboratory Results - last 24 hr 10/05/18 10/05/18 10/05/18 16:46 20:53 20:54 WBC RBC Hgb Hct MCV MCH MCHC RDW Plt Count MPV Absolute Neuts (auto) Neutrophils % Lymphocytes % Monocytes % Eosinophils % Basophils % Nucleated RBC % PT with INR INR PTT (Actin FS) 35.5 Sodium Potassium Chloride Carbon Dioxide Anion Gap BUN Creatinine Creat Clearance w eGFR Random Glucose Lactic Acid 1.3 Calcium Phosphorus Magnesium Total Bilirubin AST ALT Alkaline Phosphatase Total Protein Albumin Triglycerides 59 Lipase Urine Color Urine Appearance Urine pH Ur Specific [place] Urine Protein Urine Glucose (UA) Urine Ketones Urine Blood Urine Nitrite Urine Bilirubin Urine Urobilinogen Ur Leukocyte Esterase Urine WBC (Auto) Urine RBC (Auto) Ur Epithelial Cells Urine Mucus Stool Occult Blood Blood Type Antibody Screen 10/05/18 10/05/18 10/06/18 20:54 21:30 00:25 WBC RBC Hgb Hct MCV MCH MCHC RDW Plt Count MPV Absolute Neuts (auto) Neutrophils % Lymphocytes % Monocytes % Eosinophils % Basophils % Nucleated RBC % PT with INR INR PTT (Actin FS) Sodium Potassium Chloride Carbon Dioxide Anion Gap BUN Creatinine Creat Clearance w eGFR Random Glucose Lactic Acid Calcium Phosphorus Magnesium Total Bilirubin AST ALT Alkaline Phosphatase Total Protein Albumin Triglycerides Lipase Urine Color Dkyellow Urine Appearance Slcloudy Urine pH 5.0 Ur Specific [place] 1.021 Urine Protein 2+ H Urine Glucose (UA) Negative Urine Ketones Negative Urine Blood Negative Urine Nitrite Negative Urine Bilirubin Negative Urine Urobilinogen 2.0 Ur Leukocyte Esterase 3+ H Urine WBC (Auto) 113 Urine RBC (Auto) 12 Ur Epithelial Cells Rare Urine Mucus Rare Stool Occult Blood Negative Blood Type Cancelled Antibody Screen Cancelled 10/06/18 10/06/18 10/06/18 06:45 06:45 06:45 WBC 5.6 RBC 3.65 L Hgb 11.0 L Hct 32.2 L MCV 88.2 MCH 30.2 MCHC 34.2 RDW 18.0 H Plt Count 76 L MPV 10.0 Absolute Neuts (auto) 3.2 Neutrophils % 57.7 Lymphocytes % 15.1 Monocytes % 19.5 H Eosinophils % 6.6 H Basophils % 1.1 Nucleated RBC % 0 PT with INR 14.20 H INR 1.20 H PTT (Actin FS) Sodium 140 Potassium 3.6 Chloride 113 H Carbon Dioxide 24 Anion Gap 4 L BUN 17 Creatinine 1.6 H Creat Clearance w eGFR 43.74 Random Glucose 70 L Lactic Acid Calcium 8.0 L Phosphorus 2.6 Magnesium 1.9 Total Bilirubin 1.1 H AST 34 ALT 25 Alkaline Phosphatase 169 H Total Protein 6.3 L Albumin 2.2 L Triglycerides Lipase 248 Urine Color Urine Appearance Urine pH Ur Specific [place] Urine Protein Urine Glucose (UA) Urine Ketones Urine Blood Urine Nitrite Urine Bilirubin Urine Urobilinogen Ur Leukocyte Esterase Urine WBC (Auto) Urine RBC (Auto) Ur Epithelial Cells Urine Mucus Stool Occult Blood Blood Type Antibody Screen Laboratory Results - last 24 hr 10/05/18 10/05/18 10/05/18 16:46 20:53 20:54 WBC RBC Hgb Hct MCV MCH MCHC RDW Plt Count MPV Absolute Neuts (auto) Neutrophils % Lymphocytes % Monocytes % Eosinophils % Basophils % Nucleated RBC % PT with INR INR PTT (Actin FS) 35.5 Sodium Potassium Chloride Carbon Dioxide Anion Gap BUN Creatinine Creat Clearance w eGFR Random Glucose Lactic Acid 1.3 Calcium Phosphorus Magnesium Total Bilirubin AST ALT Alkaline Phosphatase Total Protein Albumin Triglycerides 59 Lipase Urine Color Urine Appearance Urine pH Ur Specific [place] Urine Protein Urine Glucose (UA) Urine Ketones Urine Blood Urine Nitrite Urine Bilirubin Urine Urobilinogen Ur Leukocyte Esterase Urine WBC (Auto) Urine RBC (Auto) Ur Epithelial Cells Urine Mucus Stool Occult Blood Blood Type Antibody Screen 0310/05/18 10/06/18 20:54 21:30 00:25 WBC RBC Hgb Hct MCV MCH MCHC RDW Plt Count MPV Absolute Neuts (auto) Neutrophils % Lymphocytes % Monocytes % Eosinophils % Basophils % Nucleated RBC % PT with INR INR PTT (Actin FS) Sodium Potassium Chloride Carbon Dioxide Anion Gap BUN Creatinine Creat Clearance w eGFR Random Glucose Lactic Acid Calcium Phosphorus Magnesium Total Bilirubin AST ALT Alkaline Phosphatase Total Protein Albumin Triglycerides Lipase Urine Color Dkyellow Urine Appearance Slcloudy Urine pH 5.0 Ur Specific [place] 1.021 Urine Protein 2+ H Urine Glucose (UA) Negative Urine Ketones Negative Urine Blood Negative Urine Nitrite Negative Urine Bilirubin Negative Urine Urobilinogen 2.0 Ur Leukocyte Esterase 3+ H Urine WBC (Auto) 113 Urine RBC (Auto) 12 Ur Epithelial Cells Rare Urine Mucus Rare Stool Occult Blood Negative Blood Type Cancelled Antibody Screen Cancelled 10/06/18 10/06/18 10/06/18 06:45 06:45 06:45 WBC 5.6 RBC 3.65 L Hgb 11.0 L Hct 32.2 L MCV 88.2 MCH 30.2 MCHC 34.2 RDW 18.0 H Plt Count 76 L MPV 10.0 Absolute Neuts (auto) 3.2 Neutrophils % 57.7 Lymphocytes % 15.1 Monocytes % 19.5 H Eosinophils % 6.6 H Basophils % 1.1 Nucleated RBC % 0 PT with INR 14.20 H INR 1.20 H PTT (Actin FS) Sodium 140 Potassium 3.6 Chloride 113 H Carbon Dioxide 24 Anion Gap 4 L BUN 17 Creatinine 1.6 H Creat Clearance w eGFR 43.74 Random Glucose 70 L Lactic Acid Calcium 8.0 L Phosphorus 2.6 Magnesium 1.9 Total Bilirubin 1.1 H AST 34 ALT 25 Alkaline Phosphatase 169 H Total Protein 6.3 L Albumin 2.2 L Triglycerides Lipase 248 Urine Color Urine Appearance Urine pH Ur Specific [place] Urine Protein Urine Glucose (UA) Urine Ketones Urine Blood Urine Nitrite Urine Bilirubin Urine Urobilinogen Ur Leukocyte Esterase Urine WBC (Auto) Urine RBC (Auto) Ur Epithelial Cells Urine Mucus Stool Occult Blood Blood Type Antibody Screen Current Medications Generic Name Dose Route Start Last Admin Trade Name Freq PRN Reason Stop Dose Admin Budesonide/Formoterol Fumarate 1 puff 10/06/18 10:00 10/06/18 10:22 Symbicort 160/4.5mcg - IH 1 puff BID PIERO Administration Enoxaparin Sodium 40 mg 10/06/18 10:00 Lovenox - SQ DAILY PIERO Folic Acid 1 mg 10/06/18 10:00 10/06/18 10:22 Folic Acid - PO 1 mg DAILY PIERO Administration Furosemide 40 mg 10/06/18 10:00 10/06/18 10:22 Lasix - PO 40 mg DAILY PIERO Administration Levofloxacin 250 mg in 50 mls @ 50 mls/hr 10/07/18 10:00 Levaquin 250 Mg Premixed Ivpb - IVPB DAILY [facility] Protocol Latanoprost 1 drop 10/06/18 22:00 Xalatan 0.005% Eye Drops - OU HS PIERO Levetiracetam 500 mg 10/06/18 10:00 10/06/18 10:21 Keppra - PO 500 mg BID PIERO Administration Melatonin 5 mg 10/06/18 01:53 10/06/18 03:04 Melatonin PO 5 mg HS PRN Administration INSOMNIA Multivitamins/Minerals 1 each 10/06/18 10:00 10/06/18 10:21 Theragran-M PO 1 each DAILY PIERO Administration Pancrelipase 1 cap 10/06/18 08:00 10/06/18 18:05 Kwame Curry 36,000 Units Capsule PO 1 cap TIDCM PIERO Administration Pantoprazole Sodium 20 mg 10/06/18 10:00 10/06/18 10:21 Protonix - PO 20 mg DAILY PIERO Administration Ropinirole HCl 0.25 mg 10/06/18 02:00 10/06/18 02:29 Requip - PO 0.25 mg HS PIERO Administration Solifenacin 5 mg 10/06/18 10:00 10/06/18 10:22 Vesicare - PO 5 mg DAILY PIERO Administration Spironolactone 50 mg 10/06/18 10:00 10/06/18 10:21 Aldactone - PO 50 mg DAILY PIERO Administration Tamsulosin HCl 0.4 mg 10/06/18 10:00 10/06/18 10:22 Flomax - PO 0.4 mg BID PIERO Administration ASSESSMENT AND PLAN: 63 year old male with history of Substance Abuse (cocaine), HTN, COPD, recurrent UTIs, Hepatic Portal Hypertension with esophageal varices (s/p Banding ) secondary to Liver Cirrhosis, history of Hepatitis C (treated), CKD 3, Seizure Disorder, RLS, presents with 1 day history of abdominal discomfort, distension, and diarrhea. No fever/chills. No nausea/vomiting. CT-A/P: negative for acute pathology, shows advance hepatocellular disease ( small, lobulated liver, small vol ascites, and splenomegaly), non-obstructing cholelithiasis, small bladder calculi, arthritic changes @L4-S1 1. Non-specific abdominal pain and Diarrhea, etiology unclear, possible UTI. FOBT negative No colitis/enteritis on CT. No evidence of SBP Afebrile, Hemodynamically Stable, no leukocytosis UA - Pyuria, Urine Cx pending, Stool Cx pending. Received Levofloxacin/Flagyl on admission - seen by ID - now only on Levofloxacin for possible UTI 2. HTN - continue Aldactone. 3. History of Portal Hypertension with Esophageal Varices (s/p Banding) secondary to Liver Cirrhosis Elevated Lipase on admission but no evidence of pancreatitis clinically or radiologically. Continue Lasix, Aldactone Evaluated by GI - MRCP requested. 4. BPH/Overactive bladder/multiple Bladder Calculi - Continue Tamsulosin and Vesicare. Urology evaluation requested for bladder calculi in setting of Pyuria. 5. RLS - Continue Requip 6. COPD - Stable - Continue Symbicort 7. Seizure disorder - Continue Keppra. 8. Thrombocytopenia sec to Liver Cirrhosis - no evidence of bruising/bleeding. DVT Px - SCDs. Hold Lovenox sec to Thrombocytopenia
[2018-10-06] MEDS ORDERED: PT OWN MED DRAWER 7, Y5N ONE (22:51)
[2018-10-06] MEDS: LATANOPROST 0.005% OPHTH SOLN 2.5ML BOTTLE OU SCH (22:54)
[2018-10-07] MEDS ORDERED: ACETAMINOPHEN 325 MG TABLET (FP) PO ONE (00:15)
--- NOTE | 2018-10-07 06:20 | CONS ---
DATE OF CONSULTATION: DATE OF DICTATION: 10/06/2018 REQUESTED BY: The hospitalist service. HISTORY OF PRESENT ILLNESS: This is a 63-year-old man with liver cirrhosis, treated hepatitis C, gastric varices and BPH. He is admitted with abdominal discomfort for the last 3 days and having difficulty pushing his urine out. He also notes URI symptoms and 1 episode of diarrhea that was dark but FOBT negative. Comes to the emergency room with these complaints and I am asked to see him for possible UTI. He is awake and alert this morning. He reports feeling improved since admission. He received a dose of Levaquin yesterday. PAST MEDICAL HISTORY: Notable for recurrent UTI, hypertension, COPD, CKD, esophageal varices, hepatitis C, seizure disorder, restless leg syndrome and liver cirrhosis. He denies any fevers and chills. SOCIAL HISTORY: Former cocaine and heroin. Denies any current substance use. No history of smoking. He lives alone. He is unemployed. ALLERGIES: He is allergic to PENICILLIN. Allergy is not clear. He has a history of asthma and allergy as well. MEDICATIONS: As an outpatient include folic acid, Keppra, oxybutynin, Requip, Flomax, Aldactone, Lasix, multivitamins, Protonix, Symbicort, lipase and Xalatan eye drops. FAMILY HISTORY: Unremarkable. REVIEW OF SYSTEMS: There are no chills, but he does have abdominal pain and difficulty urinating. PHYSICAL EXAMINATION: General: He is awake and alert. Vital Signs: Temperature is 98, pulse is 64, blood pressure 162/86, respiratory rate is 18, he is saturating 98%. HEENT: He is normocephalic. His eyes are anicteric. Neck: Supple. Lungs: Have diminished breath sounds at the bases. He has crackles at the right base. Abdomen: Distended but soft. He has got suprapubic discomfort but no CVA tenderness. Extremities: Without edema. LABORATORIES: Notable for a white count of 5.6, hemoglobin 11, platelets of 76,000. INR is 1.2. BUN is 17 and creatinine 1.6. Urinalysis has 3+ leukocyte esterase with 113 white cells. His alkaline phosphatase is 169. Lipase was 762 on admission, repeat is 258. Stool occult blood is negative and cultures are pending of his urine and stool. He had a CAT scan of his abdomen and pelvis mainly notable for findings consistent with advanced hepatocellular carcinoma, cholelithiasis, but no evidence of intraabdominal retroperitoneal adenopathy and no evidence of bowel obstruction or diverticulitis or appendicitis. ASSESSMENT AND RECOMMENDATIONS: 1. In summary, this is a 63-year-old man with probable urinary tract infection and a question of PENICILLIN allergy. Would continue his Levaquin. He will need urology evaluation as an outpatient as he has benign prostatic hypertrophy and bladder stones. 2. Liver cirrhosis. He is scheduled for magnetic resonance cholangiopancreatography. 3. Thrombocytopenia on the basis of liver cirrhosis, chronic kidney disease to which his antibiotics will need to be adjusted. Further recommendations to follow. Asim MEMBRENO/[id number]
--- NOTE | 2018-10-07 08:06 | PN ---
Physical Exam: SUBJECTIVE: Patient seen and examined at bedside. No further abd pain/ discomfort. No further dysuria. One episode of diarrhea after dinner last night , no normal BMs, since admission. OBJECTIVE: Vital Signs Period Temp Pulse Resp BP Sys/Eisenberg Pulse Ox Last 24 Hr 98 F-98.2 F 61-72 16-18 113-162/63-94 97-98 GENERAL: A&Ox3, NAD HEENT: NC/AT, PERRLA, EOMI, MMM NECK: Trachea midline, full range of motion, supple. LUNGS: CTA b/l HEART: RRR no m/r/g ABDOMEN: mild lower abdominal tenderness, distended, tympanitic, trace fluid wave, at baseline from prior encounters EXTREMITIES: 2+ pulses, warm, well-perfused, no edema. 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 No asterixis. + Dysarthria is baseline w/o discrete lower CN deficit. PSYCH: Normal mood, normal affect. SKIN: Warm, dry, normal turgor, no rashes or lesions noted Laboratory Results - last 24 hr 10/06/18 06:45 Sodium 140 Potassium 3.6 Chloride 113 H Carbon Dioxide 24 Anion Gap 4 L BUN 17 Creatinine 1.6 H Creat Clearance w eGFR 43.74 Random Glucose 70 L Calcium 8.0 L Phosphorus 2.6 Magnesium 1.9 Total Bilirubin 1.1 H AST 34 ALT 25 Alkaline Phosphatase 169 H Total Protein 6.3 L Albumin 2.2 L Lipase 248 Active Medications Generic Name Dose Route Start Last Admin Trade Name Freq PRN Reason Stop Dose Admin Budesonide/Formoterol Fumarate 1 puff 10/06/18 10:00 10/06/18 22:53 Symbicort 160/4.5mcg - IH 1 puff BID PIERO Administration Enoxaparin Sodium 40 mg 10/06/18 10:00 Lovenox - SQ DAILY PIERO Folic Acid 1 mg 10/06/18 10:00 10/06/18 10:22 Folic Acid - PO 1 mg DAILY PIERO Administration Furosemide 40 mg 10/06/18 10:00 10/06/18 10:22 Lasix - PO 40 mg DAILY PIERO Administration Levofloxacin 250 mg in 50 mls @ 50 mls/hr 10/07/18 10:00 Levaquin 250 Mg Premixed Ivpb - IVPB DAILY [facility] Protocol Latanoprost 1 drop 10/06/18 22:00 10/06/18 22:54 Xalatan 0.005% Eye Drops - OU 1 drop HS PIERO Administration Levetiracetam 500 mg 10/06/18 10:00 10/06/18 22:54 Keppra - PO 500 mg BID PIERO Administration Melatonin 5 mg 10/06/18 01:53 10/06/18 03:04 Melatonin PO 5 mg HS PRN Administration INSOMNIA Multivitamins/Minerals 1 each 10/06/18 10:00 10/06/18 10:21 Theragran-M PO 1 each DAILY PIERO Administration Pancrelipase 1 cap 10/06/18 08:00 10/06/18 18:05 Credillan Curry 36,000 Units Capsule PO 1 cap TIDCM PIERO Administration Pantoprazole Sodium 20 mg 10/06/18 10:00 10/06/18 10:21 Protonix - PO 20 mg DAILY PIERO Administration Ropinirole HCl 0.25 mg 10/06/18 02:00 10/06/18 22:54 Requip - PO 0.25 mg HS PIERO Administration Solifenacin 5 mg 10/06/18 10:00 10/06/18 10:22 Vesicare - PO 5 mg DAILY PIERO Administration Spironolactone 50 mg 10/06/18 10:00 10/06/18 10:21 Aldactone - PO 50 mg DAILY PIERO Administration Tamsulosin HCl 0.4 mg 10/06/18 10:00 10/06/18 22:54 Flomax - PO 0.4 mg BID PIERO Administration ASSESSMENT/PLAN: 63 y/o M w/ PMHx cirrhosis, hepatitis C, COPD, pancreatic insufficiency, EtOH/ cocaine/heroin abuse, esophageal varices s/p banding, Sz disorder in remission, RLS, p/w 1 day h/o of abdominal pain and discomfort, watery diarrhea, single dark stool noted, additionally +dysuria on ROS. Admitted for probable UTI with positive UA. #UTI -afebrile w/o leukocytosis throughout -UA: WBC 113, LE 3+; UCx pending -Stool Cx pending -ID consulted -urology consulted for comorbid bladder stones -cont Levaquin (day 3) -cont Flomax -cont Vesicare #abd pain and diarrhea in setting of known cirrhosis 2/2 hepatitis C and pancreatic insufficiency -known chronic LFT and chemical hepatobiliary abnormalities -GI consulted -MRCP pending -cont Lasix, Aldactone, PTX, Creon -Na-controlled full liquid diet as per GI #Sz disorder -cont Keppra #RLS -cont ropinirole #COPD -cont symbicort #FEN -no IVF -monitor and replete electrolytes -Na-controlled full liquid diet, adv as per GI #PPx -DVT: Lovenox sq -GI: PTX #code -full #dispo -cont to monitor on med/surg Visit type - Emergency Visit Emergency Visit: No - New Patient This patient is new to me today: No - Critical Care Critical Care patient: No
[2018-10-07 08:39] LABS: BASO % 1.2 % (0-2.0); EOS % 5.4 % (0-4.5); HEMOGLOBIN 11.2 GM/dL (11.7-16.9); LYMPH % 17.9 % (8-40); MCH 29.8 pg (25.7-33.7); MCHC 33.9 g/dl (32.0-35.9); MEAN CELL VOLUME 87.7 fl (80-96); MEAN PLT VOLUME 9.6 fl (7.5-11.1); MONO % 19.5 % (3.8-10.2); PLATELET COUNT 78 K/MM3 (134-434); RBC 3.76 M/mm3 (4.00-5.60); RDW 18.1 % (11.9-15.9); WHITE BLOOD COUNT 5.4 K/mm3 (4.0-10.0)
[2018-10-07 09:00] LABS: ALBUMIN 2.3 g/dl (3.4-5.0); ALK PHOS 170 U/L (45-117); ANION GAP 5 MMOL/L (8-16); BILIRUBIN,TOTAL 0.8 mg/dL (0.2-1); BLOOD UREA NITROGEN 16 mg/dL (7-18); CALCIUM 8.1 mg/dL (8.5-10.1); CHLORIDE 111 mmol/L (98-107); CO2 24 mmol/L (21-32); CREATININE 1.7 mg/dL (0.55-1.3); GLUCOSE,RANDOM 81 mg/dL (74-106); MAGNESIUM 1.8 mg/dL (1.8-2.4); PHOSPHOROUS 2.9 mg/dL (2.5-4.9); POTASSIUM 3.7 mmol/L (3.5-5.1); SGOT/AST 42 U/L (15-37); SGPT/ALT 27 U/L (13-61); SODIUM 139 mmol/L (136-145); TOT PROT 6.6 g/dl (6.4-8.2)
[2018-10-07] MEDS: FUROSEMIDE 40 MG TABLET (FP) PO SCH (09:57)
[2018-10-07] MEDS: SOLIFENACIN SUCCINATE 5 MG TAB (FP) PO SCH (09:57)
[2018-10-07] MEDS: levETIRAcetam 500 MG TABLET (FP) PO SCH ×2 (09:57→22:20)
[2018-10-07] MEDS: FOLIC ACID 1 MG TABLET (FP) PO SCH (09:57)
[2018-10-07] MEDS: LIPASE/PROTEASE/AMYLASE 36,000 UNIT CAPSULE PO SCH ×3 (09:57→17:18)
[2018-10-07] MEDS: PANTOPRAZOLE 20 MG TABLET (FP) PO SCH (09:57)
[2018-10-07] MEDS: MULTIVITAMINS THER W-MINERALS COMBO TABLET (FP) PO SCH (09:57)
[2018-10-07] MEDS: TAMSULOSIN HCL 0.4 MG CAP PO SCH ×2 (09:57→22:19)
[2018-10-07] MEDS: BUDESONIDE/FORMETEROL FUMARATE 160/4.5 mcg INHALER IH SCH ×2 (09:58→22:24)
[2018-10-07] MEDS: SPIRONOLACTONE 25 MG TABLET (FP) PO SCH (09:58)
--- NOTE | 2018-10-07 11:13 | PN ---
Teaching Attending Note Name of Resident: Phil Weiss ATTENDING PHYSICIAN STATEMENT I saw and evaluated the patient. I reviewed the resident's note and discussed the case with the resident. I agree with the resident's findings and plan as documented. SUBJECTIVE: Still having some abdominal discomfort and watery diarrhea. Dark - no hematochezia. No fever/chills/nausea/vomiting. OBJECTIVE: Afebrile, Hemodynamically Stable. Last Vital Signs Temp Pulse Resp BP Pulse Ox 98.0 F 90 16 138/91 97 10/07/18 09:55 10/07/18 09:55 10/07/18 09:55 10/07/18 09:55 10/06/18 21:00 HEENT - Atraumatic, Normocephalic Heart - S1, S2, RRR Lungs - clear to auscultation Abdomen - Soft, mild distension. Bowel Sounds normal Extremities - No calf tenderness. Neuro - AAO x 3. Tone/Power normal all 4 extremities. Laboratory Results - last 24 hr 10/07/18 10/07/18 07:00 07:00 WBC 5.4 RBC 3.76 L Hgb 11.2 L Hct 33.0 L MCV 87.7 MCH 29.8 MCHC 33.9 RDW 18.1 H Plt Count 78 L MPV 9.6 Absolute Neuts (auto) 3.0 Neutrophils % 56.0 Lymphocytes % 17.9 Monocytes % 19.5 H Eosinophils % 5.4 H Basophils % 1.2 Nucleated RBC % 0 Sodium 139 Potassium 3.7 Chloride 111 H Carbon Dioxide 24 Anion Gap 5 L BUN 16 Creatinine 1.7 H Creat Clearance w eGFR 40.78 Random Glucose 81 Calcium 8.1 L Phosphorus 2.9 Magnesium 1.8 Total Bilirubin 0.8 AST 42 H ALT 27 Alkaline Phosphatase 170 H Total Protein 6.6 Albumin 2.3 L Current Medications Generic Name Dose Route Start Last Admin Trade Name Freq PRN Reason Stop Dose Admin Budesonide/Formoterol Fumarate 1 puff 10/06/18 10:00 10/07/18 09:58 Symbicort 160/4.5mcg - IH 1 puff BID PIERO Administration Folic Acid 1 mg 10/06/18 10:00 10/07/18 09:57 Folic Acid - PO 1 mg DAILY PIERO Administration Furosemide 40 mg 10/06/18 10:00 03/16/19 09:57 Lasix - PO 40 mg DAILY PIERO Administration Levofloxacin 250 mg in 50 mls @ 50 mls/hr 10/07/18 10:00 10/07/18 09:58 Levaquin 250 Mg Premixed Ivpb - IVPB 50 mls/hr DAILY PIERO Administration Protocol Latanoprost 1 drop 10/06/18 22:00 10/06/18 22:54 Xalatan 0.005% Eye Drops - OU 1 drop HS PIERO Administration Levetiracetam 500 mg 10/06/18 10:00 10/07/18 09:57 Keppra - PO 500 mg BID PIERO Administration Melatonin 5 mg 10/06/18 01:53 10/06/18 03:04 Melatonin PO 5 mg HS PRN Administration INSOMNIA Multivitamins/Minerals 1 each 10/06/18 10:00 10/07/18 09:57 Theragran-M PO 1 each DAILY PIERO Administration Pancrelipase 1 cap 10/06/18 08:00 10/07/18 09:[address] 36,000 Units Capsule PO 1 cap TIDCM PIERO Administration Pantoprazole Sodium 20 mg 10/06/18 10:00 10/07/18 09:57 Protonix - PO 20 mg DAILY PIERO Administration Ropinirole HCl 0.25 mg 10/06/18 02:00 10/06/18 22:54 Requip - PO 0.25 mg HS PIERO Administration Solifenacin 5 mg 10/06/18 10:00 10/07/18 09:57 Vesicare - PO 5 mg DAILY PIERO Administration Spironolactone 50 mg 10/06/18 10:00 10/07/18 09:58 Aldactone - PO 50 mg DAILY PIERO Administration Tamsulosin HCl 0.4 mg 10/06/18 10:00 10/07/18 09:57 Flomax - PO 0.4 mg BID PIERO Administration ASSESSMENT AND PLAN: 63 year old male with history of Substance Abuse (cocaine), HTN, COPD, recurrent UTIs, Hepatic Portal Hypertension with esophageal varices (s/p Banding ) secondary to Liver Cirrhosis, history of Hepatitis C (treated), CKD 3, Seizure Disorder, RLS, presents with 1 day history of abdominal discomfort, distension, and diarrhea. No fever/chills. No nausea/vomiting. CT-A/P: negative for acute pathology, shows advance hepatocellular disease ( small, lobulated liver, small vol ascites, and splenomegaly), non-obstructing cholelithiasis, small bladder calculi, arthritic changes @L4-S1 1. Non-specific abdominal pain and Diarrhea, etiology unclear, possible UTI. FOBT negative No colitis/enteritis on CT. No evidence of SBP Afebrile, Hemodynamically Stable, no leukocytosis UA - Pyuria, Urine Cx pending, Stool Cx pending. Received Levofloxacin/Flagyl on admission - seen by ID - now only on Levofloxacin for possible UTI 2. HTN - continue Aldactone. 3. History of Portal Hypertension with Esophageal Varices (s/p Banding) secondary to Liver Cirrhosis Elevated Lipase on admission but no evidence of pancreatitis clinically or radiologically. Continue Lasix, Aldactone Evaluated by GI - MRCP pending. 4. BPH/Overactive bladder/multiple Bladder Calculi - Continue Tamsulosin and Vesicare. Urology evaluation requested for bladder calculi in setting of Pyuria. 5. RLS - Continue Requip 6. COPD - Stable - Continue Symbicort 7. Seizure disorder - Continue Keppra. 8. Thrombocytopenia sec to Liver Cirrhosis - no evidence of bruising/bleeding. DVT Px - SCDs. Hold Lovenox sec to Thrombocytopenia
--- NOTE | 2018-10-07 11:56 | PN ---
GI Progress Note Subjective: States feeling well No abdominal pain + loose BMs - Objective Vital Signs: Vital Signs Temperature 98.0 F 10/07/18 09:55 Pulse Rate 90 10/07/18 09:55 Respiratory Rate 16 10/07/18 09:55 Blood Pressure 138/91 10/07/18 09:55 O2 Sat by Pulse Oximetry (%) 100 10/07/18 10:00 Constitutional: Calm Eyes: No: Sclera Icterus Cardiovascular: Yes: Regular Rate and Rhythm Gastrointestinal Inspection: No: Distention ...Auscultate: Yes: Normoactive Bowel Sounds ...Palpate: Yes: Hepatomegaly, Soft. No: Tenderness Edema: No (No LE edema) Neurological: Yes: Alert Labs: CBC, BMP 10/07/18 07:00 10/07/18 07:00 INR, PTT INR 1.20 (0.83-1.09) H 10/06/18 06:45 Problem List - Problems (1) Abdominal pain Assessment/Plan: Clinically improved advance diet MRCP when able Code(s): R10.9 - UNSPECIFIED ABDOMINAL PAIN
--- NOTE | 2018-10-07 12:25 | PN ---
Progress Note (short form) - Note Progress Note: feels well abdominal discomfort is resolved reports good urine output to diuretics Vital Signs Period Temp Pulse Resp BP Sys/Eisenberg Pulse Ox Last 24 Hr 98 F-98.1 F 61-90 16-18 113-155/63-94 97-100 cor-rrr lungs clear abd much softer, no suprapubic discomfort ext no edema CBC, BMP 10/07/18 07:00 10/07/18 07:00 cultures pending a/p probable UTI ?penicillin allergy would continue levaquin 250 mg daily for uti f/u cultures will need urology eval as outpt as he has bph and bladder stones liver cirrhosis- for MRCP thrombocytopenia diarrhea- stools pending, diarrhea has resolved CKD
[2018-10-07 12:47] LABS: COCAINE, UR NEGATIVE ng/ml (CUTOFF=300); METHADONE, UR NEGATIVE ng/ml (CUTOFF=300); OPIATES, URI NEGATIVE ng/ml (CUTOFF=300); PHENCYCLIDINE,URINE NEGATIVE ng/ml (CUTOFF=25); URINE AMPHETAMINES NEGATIVE ng/ml (CUTOFF=500); URINE BARBITURATES NEGATIVE ng/ml (CUTOFF=200); URINE BENZODIAZEPINES NEGATIVE ng/ml (CUTOFF=200)
[2018-10-07] MEDS ORDERED: guaiFENesin 200 MG/10 ML 10 ML UNIT-DOSE CUPS PO ONE (21:55)
[2018-10-07] MEDS: rOPINIRole HCL 0.25 MG TABLET PO SCH (22:19)
[2018-10-07] MEDS: MELATONIN 5 MG TABLETS PO PRN (22:20)
[2018-10-07] MEDS: LATANOPROST 0.005% OPHTH SOLN 2.5ML BOTTLE OU SCH (22:24)
[2018-10-08 08:37] LABS: BASO % 0.8 % (0-2.0); EOS % 3.9 % (0-4.5); LYMPH % 16.5 % (8-40); MCH 29.8 pg (25.7-33.7); MCHC 34.2 g/dl (32.0-35.9); MEAN CELL VOLUME 87.1 fl (80-96); MEAN PLT VOLUME 9.1 fl (7.5-11.1); MONO % 16.7 % (3.8-10.2); NEUT % 62.1 % (42.8-82.8); PLATELET COUNT 76 K/MM3 (134-434); RBC 3.68 M/mm3 (4.00-5.60); RDW 17.9 % (11.9-15.9); WHITE BLOOD COUNT 6.1 K/mm3 (4.0-10.0)
[2018-10-08 09:03] LABS: ALBUMIN 2.2 g/dl (3.4-5.0); ALK PHOS 170 U/L (45-117); ANION GAP 8 MMOL/L (8-16); BILIRUBIN,TOTAL 0.6 mg/dL (0.2-1); BLOOD UREA NITROGEN 14 mg/dL (7-18); CALCIUM 8.2 mg/dL (8.5-10.1); CHLORIDE 110 mmol/L (98-107); CO2 24 mmol/L (21-32); CREATININE 1.7 mg/dL (0.55-1.3); GLUCOSE,RANDOM 86 mg/dL (74-106); MAGNESIUM 1.7 mg/dL (1.8-2.4); PHOSPHOROUS 2.8 mg/dL (2.5-4.9); POTASSIUM 3.6 mmol/L (3.5-5.1); SGOT/AST 43 U/L (15-37); SGPT/ALT 26 U/L (13-61); SODIUM 142 mmol/L (136-145); TOT PROT 6.4 g/dl (6.4-8.2)
[2018-10-08] MEDS: SPIRONOLACTONE 25 MG TABLET (FP) PO SCH (09:48)
[2018-10-08] MEDS: PANTOPRAZOLE 20 MG TABLET (FP) PO SCH (09:48)
[2018-10-08] MEDS: SOLIFENACIN SUCCINATE 5 MG TAB (FP) PO SCH (09:48)
[2018-10-08] MEDS: FUROSEMIDE 40 MG TABLET (FP) PO SCH (09:48)
[2018-10-08] MEDS: MULTIVITAMINS THER W-MINERALS COMBO TABLET (FP) PO SCH (09:48)
[2018-10-08] MEDS: FOLIC ACID 1 MG TABLET (FP) PO SCH (09:48)
[2018-10-08] MEDS: BUDESONIDE/FORMETEROL FUMARATE 160/4.5 mcg INHALER IH SCH ×2 (09:49→21:14)
[2018-10-08] MEDS: TAMSULOSIN HCL 0.4 MG CAP PO SCH ×2 (09:49→21:13)
[2018-10-08] MEDS: levETIRAcetam 500 MG TABLET (FP) PO SCH ×2 (09:49→21:13)
[2018-10-08] MEDS: LIPASE/PROTEASE/AMYLASE 36,000 UNIT CAPSULE PO SCH ×3 (09:50→18:06)
--- NOTE | 2018-10-08 12:07 | PN ---
Progress Note (short form) - Note Progress Note: MRI performed. No acute events. Awaiting MRCP result Problem List - Problems (1) Abdominal pain Code(s): R10.9 - UNSPECIFIED ABDOMINAL PAIN
--- NOTE | 2018-10-08 13:16 | PN ---
Progress Note (short form) - Note Progress Note: SUBJECTIVE: No further abdominal discomfort. LAst diarrheal episode last evening - no further BMs since. No fever/chills/nausea/vomiting. OBJECTIVE: Afebrile, Hemodynamically Stable. Last Vital Signs Temp Pulse Resp BP Pulse Ox 98.4 F 73 18 116/73 96 10/08/18 10:00 10/08/18 10:00 10/08/18 10:00 10/08/18 10:00 10/08/18 09:00 HEENT - Atraumatic, Normocephalic Heart - S1, S2, RRR, SM Lungs - clear to auscultation Abdomen - Soft, mild distension. Bowel Sounds normal Extremities - No calf tenderness. No edema. Neuro - AAO x 3. Tone/Power normal all 4 extremities. Laboratory Results - last 24 hr 10/08/18 10/08/18 07:30 07:30 WBC 6.1 RBC 3.68 L Hgb 11.0 L Hct 32.0 L MCV 87.1 MCH 29.8 MCHC 34.2 RDW 17.9 H Plt Count 76 L MPV 9.1 Absolute Neuts (auto) 3.8 Neutrophils % 62.1 Lymphocytes % 16.5 Monocytes % 16.7 H Eosinophils % 3.9 Basophils % 0.8 Nucleated RBC % 0 Sodium 142 Potassium 3.6 Chloride 110 H Carbon Dioxide 24 Anion Gap 8 BUN 14 Creatinine 1.7 H Creat Clearance w eGFR 40.78 Random Glucose 86 Calcium 8.2 L Phosphorus 2.8 Magnesium 1.7 L Total Bilirubin 0.6 AST 43 H ALT 26 Alkaline Phosphatase 170 H Total Protein 6.4 Albumin 2.2 L Current Medications Generic Name Dose Route Start Last Admin Trade Name Freq PRN Reason Stop Dose Admin Budesonide/Formoterol Fumarate 1 puff 10/06/18 10:00 10/08/18 09:49 Symbicort 160/4.5mcg - IH 1 puff BID PIERO Administration Folic Acid 1 mg 10/06/18 10:00 10/08/18 09:48 Folic Acid - PO 1 mg DAILY PIERO Administration Furosemide 40 mg 10/06/18 10:00 10/08/18 09:48 Lasix - PO 40 mg DAILY PIERO Administration Levofloxacin 250 mg in 50 mls @ 50 mls/hr 10/07/18 10:00 10/08/18 09:48 Levaquin 250 Mg Premixed Ivpb - IVPB 50 mls/hr DAILY PIERO Administration Protocol Latanoprost 1 drop 10/06/18 22:00 10/07/18 22:24 Xalatan 0.005% Eye Drops - OU 1 drop HS PIERO Administration Levetiracetam 500 mg 10/06/18 10:00 10/08/18 09:49 Keppra - PO 500 mg BID PIERO Administration Melatonin 5 mg 10/06/18 01:53 10/07/18 22:20 Melatonin PO 5 mg HS PRN Administration INSOMNIA Multivitamins/Minerals 1 each 10/06/18 10:00 10/08/18 09:48 Theragran-M PO 1 each DAILY PIERO Administration Pancrelipase 1 cap 10/06/18 08:00 10/08/18 09:50 Creon 36,000 Units Capsule PO 1 cap TIDCM PIERO Administration Pantoprazole Sodium 20 mg 10/06/18 10:00 10/08/18 09:48 Protonix - PO 20 mg DAILY PIERO Administration Ropinirole HCl 0.25 mg 10/06/18 02:00 10/07/18 22:19 Requip - PO 0.25 mg HS PIERO Administration Solifenacin 5 mg 10/06/18 10:00 10/08/18 09:48 Vesicare - PO 5 mg DAILY PIERO Administration Spironolactone 50 mg 10/06/18 10:00 10/08/18 09:48 Aldactone - PO 50 mg DAILY PIERO Administration Tamsulosin HCl 0.4 mg 10/06/18 10:00 10/08/18 09:49 Flomax - PO 0.4 mg BID PIERO Administration ASSESSMENT AND PLAN: 63 year old male with history of Substance Abuse (cocaine), HTN, COPD, recurrent UTIs, Hepatic Portal Hypertension with esophageal varices (s/p Banding ) secondary to Liver Cirrhosis, history of Hepatitis C (treated), CKD 3, Seizure Disorder, RLS, presents with 1 day history of abdominal discomfort, distension, and diarrhea. No fever/chills. No nausea/vomiting. CT A/P: negative for acute pathology, shows advance hepatocellular disease ( small, lobulated liver, small vol ascites, and splenomegaly), non-obstructing cholelithiasis, small bladder calculi, arthritic changes @L4-S1 1. Non-specific abdominal pain and Diarrhea, etiology unclear, resolving FOBT negative No colitis/enteritis on CT. No evidence of SBP Afebrile, Hemodynamically Stable, no leukocytosis UA - Pyuria, Urine Cx - negative, Stool Cx negative. Received Levofloxacin/Flagyl on admission - seen by ID - now only on Levofloxacin - further Abx as per ID. 2. HTN - continue Aldactone. 3. History of Portal Hypertension with Esophageal Varices (s/p Banding) secondary to Liver Cirrhosis Elevated Lipase on admission but no evidence of pancreatitis clinically or radiologically. Continue Lasix, Aldactone Evaluated by GI - MRCP result pending. 4. BPH/Overactive bladder/multiple Bladder Calculi - Continue Tamsulosin and Vesicare. Awaiting Urology evaluation for bladder calculi in setting of Pyuria. 5. RLS - Continue Requip 6. COPD - Stable - Continue Symbicort 7. Seizure disorder - Continue Keppra. 8. Thrombocytopenia sec to Liver Cirrhosis - no evidence of bruising/bleeding. 9. CKD 3 - appears stable. Creat at baseline. 10. Hypomagnesemia - will replete. DVT Px - SCDs. Hold Lovenox sec to Thrombocytopenia Visit type - Emergency Visit Emergency Visit: No - New Patient This patient is new to me today: No - Critical Care Critical Care patient: No - Discharge Referral Referred to [facility] Med [facility] No
--- NOTE | 2018-10-08 13:17 | CON.GU ---
Consult Consult Specialty:: Referred by:: medicine Reason for Consultation:: bladder stones - History of Present Illness Chief Complaint: dysuria History of Present Illness: 63 yaer old male with liver CA who was foung to have small bladder stones on CT. He reoprts that when admitted he was having some dysuria butit has resolved. Urine cx is neg. 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 Cardio/Vascular: Yes: HTN Pulmonary: Yes: COPD Gastrointestinal: Yes: Esophageal Varices (Unclear by his history), GERD Hepatobiliary: Yes: Cirrhosis, Hepatitis C Renal/: Yes: Renal Inusuff, BPH - Alcohol/Substance Use Hx Alcohol Use: No History of Substance Use: reports: Cocaine (states abstinence for 1 year), Heroin - Smoking History Smoking history: Never smoked Have you smoked in the past 12 months: No Aproximately how many cigarettes per day: 1 If you are a former smoker, when did you quit?: 2017 - Social History Usual Living Arrangement: Alone ADL: Support Services Occupation: not currently working History of Recent Travel: No Home Medications - Allergies Allergies/Adverse Reactions: Allergies Allergy/AdvReac Type Severity Reaction Status Date / Time Penicillins Allergy Unknown Verified 10/05/18 16:18 aspirin AdvReac Intermediate Verified 10/05/18 16:18 - Home Medications Home Medications: Ambulatory Orders Folic Acid 1 mg PO DAILY 11/29/16 levETIRAcetam [Keppra -] 500 mg PO BID tablet 12/06/16 Oxybutynin Chloride [Oxybutynin Chloride ER] 10 mg PO DAILY 11/16/17 Ropinirole HCl [Requip] 0.25 mg PO DAILY 11/16/17 Tamsulosin HCl [Flomax -] 0.4 mg PO BID 11/16/17 Spironolactone [Aldactone -] 50 mg PO DAILY #30 tablet 02/03/18 Furosemide [Lasix] 40 mg PO DAILY #30 tablet 02/07/18 Multivitamin with Iron [Multivitamins with Iron] 1 each PO DAILY 04/27/18 Pantoprazole Sodium [Protonix -] 20 mg PO DAILY 04/27/18 Melatonin 5 mg PO HS PRN tab 04/28/18 Budesonide/Formeterol Fumarate [SYMBICORT 160/4.5mcg -] 1 inh PO BID 06/20/18 Lactulose 20 gm PO TID 06/20/18 Lipase/Protease/Amylase [Kwame Curry 36,000 Units Capsule] 1 cap PO DAILY 06/20/18 Xalatan 0.005% Eye Drops - 1 drop OU DAILY 06/20/18 Family Disease History - Family Disease History Other Family History: No family history of colorectal cancer or other GI malignancy Review of Systems - Review of Systems Genitourinary: reports: Dysuria Physical Exam- Vital Signs: Vital Signs Temperature 98.4 F 10/08/18 10:00 Pulse Rate 73 10/08/18 10:00 Respiratory Rate 18 10/08/18 10:00 Blood Pressure 116/73 10/08/18 10:00 O2 Sat by Pulse Oximetry (%) 96 10/08/18 09:00 Renal/: No: Bladder Distention, CVA Tenderness - Left, CVA Tenderness - Right , [place] Present, Hematuria Labs: CBC, BMP 10/08/18 07:30 10/08/18 07:30 Imaging - Results Cat Scan: Report Reviewed Assessment/Plan Bladder calclui and BPH currently asymptomatic. home on flomax and follow up as outpatient . Dr. Brian [phone]
[2018-10-08] MEDS ORDERED: MAGNESIUM SULF 50% (8.12 MEQ/2 ML-1 GM VIAL) IVPB ONE (13:18)
[2018-10-08] MEDS: guaiFENesin/D-METHORPHAN HB 10 ML UNIT-DOSE CUPS PO PRN (14:44)
--- NOTE | 2018-10-08 17:33 | PN ---
Progress Note (short form) - Note Progress Note: no dysuria no abdominal pain feels well s/p mrcp Vital Signs Period Temp Pulse Resp BP Sys/Eisenberg Pulse Ox Last 24 Hr 97.7 F-98.7 F 65-75 16-18 116-155/64-76 96-100 cor-rrr lungs clear abd soft,nt ext no edema CBC, BMP 10/08/18 07:30 10/08/18 07:30 Microbiology 10/06/18 11:30 Stool Salmonella/Shigella Culture - Preliminary NO ENTERIC PATHOGENS, 24 HOURS, ON PRIMARY PLATES 10/06/18 11:30 Stool Yersinia Culture - Preliminary NO ENTERIC PATHOGENS, 24 HOURS, ON PRIMARY PLATES 10/06/18 11:30 Stool Vibrio Culture - Final NO GROWTH OF VIBRIO SPECIES OBTAINED 10/06/18 11:30 Stool Escherichia coli 0157 Culture - Final NO GROWTH OF E COLI 0157 OBTAINED 10/06/18 11:30 Urine - Urine Clean Catch Urine Culture - Final NO GROWTH OBTAINED 10/06/18 11:30 Stool Gram Stain - Final a/p urine culture is negative will d/c levaquin liver cirrhosis- for MRCP thrombocytopenia diarrhea- stools pending, diarrhea has resolved CKD please call back if needed
[2018-10-08] MEDS ORDERED: PT OWN MED DRAWER 7, Y5N ONE (18:10)
[2018-10-08] MEDS ORDERED: INSULIN (NOVOLOG) ASPART 100 UNITS/ML 10ML VIAL ONE (18:10)
[2018-10-08] MEDS ORDERED: ACETAMINOPHEN 325 MG TABLET (FP) PO ONE (18:15)
[2018-10-08] MEDS: MELATONIN 5 MG TABLETS PO PRN (21:13)
[2018-10-08] MEDS: rOPINIRole HCL 0.25 MG TABLET PO SCH (21:13)
[2018-10-08] MEDS: LATANOPROST 0.005% OPHTH SOLN 2.5ML BOTTLE OU SCH (21:14)
[2018-10-09 07:01] VITALS: PULSE 70
[2018-10-09] MEDS ORDERED: PT OWN MED DRAWER 7, Y5N ONE (08:50)
[2018-10-09] MEDS: LIPASE/PROTEASE/AMYLASE 36,000 UNIT CAPSULE PO SCH ×3 (09:05→17:51)
[2018-10-09] MEDS: FUROSEMIDE 40 MG TABLET (FP) PO SCH (10:20)
[2018-10-09] MEDS: SOLIFENACIN SUCCINATE 5 MG TAB (FP) PO SCH (10:21)
[2018-10-09] MEDS: TAMSULOSIN HCL 0.4 MG CAP PO SCH (10:21)
[2018-10-09] MEDS: FOLIC ACID 1 MG TABLET (FP) PO SCH (10:21)
[2018-10-09] MEDS: SPIRONOLACTONE 25 MG TABLET (FP) PO SCH (10:21)
[2018-10-09] MEDS: PANTOPRAZOLE 20 MG TABLET (FP) PO SCH (10:21)
[2018-10-09] MEDS: levETIRAcetam 500 MG TABLET (FP) PO SCH (10:22)
[2018-10-09] MEDS: MULTIVITAMINS THER W-MINERALS COMBO TABLET (FP) PO SCH (10:22)
[2018-10-09] MEDS: BUDESONIDE/FORMETEROL FUMARATE 160/4.5 mcg INHALER IH SCH (10:23)
--- NOTE | 2018-10-09 12:59 | PN ---
Physical Exam: SUBJECTIVE: Patient seen and examined at bedside. Having ongoing diarrhea, otherwise no acute complaints. OBJECTIVE: Vital Signs Period Temp Pulse Resp BP Sys/Eisenberg Pulse Ox Last 24 Hr 97.6 F-98.1 F 60-70 17-20 116-153/70-81 99 GENERAL: A&Ox3, NAD HEENT: NC/AT, PERRLA, EOMI, MMM NECK: Trachea midline, full range of motion, supple. LUNGS: CTA b/l HEART: RRR no m/r/g ABDOMEN: non-tender, distended, tympanitic, trace fluid wave, at baseline from prior encounters EXTREMITIES: 2+ pulses, warm, well-perfused, no edema. NEUROLOGICAL: neuro ophthalmologist, motor, sensory systems w/o focal deficit. No asterixis. + Dysarthria is baseline w/o discrete lower CN deficit. PSYCH: Normal mood, normal affect. SKIN: Warm, dry, normal turgor, no rashes or lesions noted Active Medications Generic Name Dose Route Start Last Admin Trade Name Freq PRN Reason Stop Dose Admin Budesonide/Formoterol Fumarate 1 puff 10/06/18 10:00 10/09/18 10:23 Symbicort 160/4.5mcg - IH 1 puff BID PIERO Administration Folic Acid 1 mg 10/06/18 10:00 10/09/18 10:21 Folic Acid - PO 1 mg DAILY PIERO Administration Furosemide 40 mg 10/06/18 10:00 10/09/18 10:20 Lasix - PO 40 mg DAILY PIERO Administration Guaifenesin 10 ml 10/08/18 13:47 10/08/18 14:44 Robitussin Dm - PO 10 ml Q8H PRN Administration COUGH Latanoprost 1 drop 10/06/18 22:00 10/08/18 21:14 Xalatan 0.005% Eye Drops - OU 1 drop HS PIERO Administration Levetiracetam 500 mg 10/06/18 10:00 10/09/18 10:22 Keppra - PO 500 mg BID PIERO Administration Melatonin 5 mg 10/06/18 01:53 10/08/18 21:13 Melatonin PO 5 mg HS PRN Administration INSOMNIA Multivitamins/Minerals 1 each 10/06/18 10:00 10/09/18 10:22 Theragran-M PO 1 each DAILY PIERO Administration Pancrelipase 1 cap 10/06/18 08:00 10/09/18 11:[address] 36,000 Units Capsule PO 1 cap TIDCM PIERO Administration Pantoprazole Sodium 20 mg 10/06/18 10:00 10/09/18 10:21 Protonix - PO 20 mg DAILY PIERO Administration Ropinirole HCl 0.25 mg 10/06/18 02:00 10/08/18 21:13 Requip - PO 0.25 mg HS PIERO Administration Solifenacin 5 mg 10/06/18 10:00 10/09/18 10:21 Vesicare - PO 5 mg DAILY PIERO Administration Spironolactone 50 mg 10/06/18 10:00 10/09/18 10:21 Aldactone - PO 50 mg DAILY PIERO Administration Tamsulosin HCl 0.4 mg 10/06/18 10:00 10/09/18 10:21 Flomax - PO 0.4 mg BID PIERO Administration ASSESSMENT/PLAN: 63 y/o M w/ PMHx cirrhosis, hepatitis C, COPD, pancreatic insufficiency, EtOH/ cocaine/heroin abuse, esophageal varices s/p banding, Sz disorder in remission, RLS, p/w 1 day h/o of abdominal pain and discomfort, watery diarrhea, single dark stool noted, additionally +dysuria on ROS. Admitted for probable UTI with positive UA. #ID -ID consulted -stool Cx and UCx negative -no further ABx #abd pain and diarrhea in setting of known cirrhosis 2/2 hepatitis C and pancreatic insufficiency -known chronic LFT and chemical hepatobiliary abnormalities -GI consulted -MRCP pending -cont Lasix, Aldactone, PTX, Creon -Na-controlled full liquid diet as per GI #Sz disorder -cont Keppra #RLS -cont ropinirole #COPD -cont symbicort # -cont Flomax -cont Vesicare #FEN -no IVF -monitor and replete electrolytes -fat/Na-controlled diet #PPx -DVT: mechanical only -GI: PTX #code -full #dispo -cont to monitor on med/surg -discharge to outpatient primary and GI f/u if MRCP negative Visit type - Emergency Visit Emergency Visit: No - New Patient This patient is new to me today: No - Critical Care Critical Care patient: No
[2018-10-09 13:28] VITALS: BP 127/75; TEMP 98.3
--- NOTE | 2018-10-09 16:02 | PN ---
Progress Note (short form) - Note Progress Note: Brief GI chart review note Discussed MRCP findings with housestaff - recommend MRI triple phase liver protocol with contrast for further assessment for HCC
[2018-10-09] MEDS: guaiFENesin/D-METHORPHAN HB 10 ML UNIT-DOSE CUPS PO PRN (16:15)
--- NOTE | 2018-10-09 17:38 | PN ---
Teaching Attending Note Name of Resident: Phil Weiss ATTENDING PHYSICIAN STATEMENT I saw and evaluated the patient. I reviewed the resident's note and discussed the case with the resident. I agree with the resident's findings and plan as documented. SUBJECTIVE: No further abdominal discomfort. Soft stool today - no blood. No fever/chills/nausea/vomiting. OBJECTIVE: Afebrile, Hemodynamically Stable. Last Vital Signs Temp Pulse Resp BP Pulse Ox 98.3 F 70 18 127/75 99 10/09/18 13:26 10/09/18 13:26 10/09/18 13:26 10/09/18 13:26 10/08/18 21:00 HEENT - Atraumatic, Normocephalic Heart - S1, S2, RRR, SM Lungs - clear to auscultation Abdomen - Soft, mild distension. Bowel Sounds normal Extremities - No calf tenderness. No edema. Neuro - AAO x 3. Tone/Power normal all 4 extremities. Current Medications Generic Name Dose Route Start Last Admin Trade Name Freq PRN Reason Stop Dose Admin Budesonide/Formoterol Fumarate 1 puff 10/06/18 10:00 10/09/18 10:23 Symbicort 160/4.5mcg - IH 1 puff BID PIERO Administration Folic Acid 1 mg 10/06/18 10:00 10/09/18 10:21 Folic Acid - PO 1 mg DAILY PIERO Administration Furosemide 40 mg 10/06/18 10:00 10/09/18 10:20 Lasix - PO 40 mg DAILY PIERO Administration Guaifenesin 10 ml 10/08/18 13:47 10/09/18 16:15 Robitussin Dm - PO 10 ml Q8H PRN Administration COUGH Latanoprost 1 drop 10/06/18 22:00 10/08/18 21:14 Xalatan 0.005% Eye Drops - OU 1 drop HS PIERO Administration Levetiracetam 500 mg 10/06/18 10:00 10/09/18 10:22 Keppra - PO 500 mg BID PIERO Administration Melatonin 5 mg 10/06/18 01:53 10/08/18 21:13 Melatonin PO 5 mg HS PRN Administration INSOMNIA Multivitamins/Minerals 1 each 10/06/18 10:00 10/09/18 10:22 Theragran-M PO 1 each DAILY PIERO Administration Pancrelipase 1 cap 10/06/18 08:00 10/09/18 11:30 Credillan Curry 36,000 Units Capsule PO 1 cap TIDCM PIERO Administration Pantoprazole Sodium 20 mg 10/06/18 10:00 10/09/18 10:21 Protonix - PO 20 mg DAILY PIERO Administration Ropinirole HCl 0.25 mg 10/06/18 02:00 10/08/18 21:13 Requip - PO 0.25 mg HS PIERO Administration Solifenacin 5 mg 10/06/18 10:00 10/09/18 10:21 Vesicare - PO 5 mg DAILY PIERO Administration Spironolactone 50 mg 10/06/18 10:00 10/09/18 10:21 Aldactone - PO 50 mg DAILY PIERO Administration Tamsulosin HCl 0.4 mg 10/06/18 10:00 10/09/18 10:21 Flomax - PO 0.4 mg BID PIERO Administration ASSESSMENT AND PLAN: 63 year old male with history of Substance Abuse (cocaine), HTN, COPD, recurrent UTIs, Hepatic Portal Hypertension with esophageal varices (s/p Banding ) secondary to Liver Cirrhosis, history of Hepatitis C (treated), CKD 3, Seizure Disorder, RLS, presents with 1 day history of abdominal discomfort, distension, and diarrhea. No fever/chills. No nausea/vomiting. CT A/P: negative for acute pathology, shows advance hepatocellular disease ( small, lobulated liver, small volume ascites, and splenomegaly), non- obstructing cholelithiasis, small bladder calculi, arthritic changes @L4-S1 1. Non-specific abdominal pain and Diarrhea, etiology unclear, resolving FOBT negative No colitis/enteritis on CT. No evidence of SBP Afebrile, Hemodynamically Stable, no leukocytosis UA - Pyuria, Urine Cx - negative, Stool Cx negative. Received 4 days of Levofloxacin - discontinued by ID 2. HTN - continue Aldactone. 3. History of Portal Hypertension with Esophageal Varices (s/p Banding) secondary to Liver Cirrhosis and likely Liver Mass (possible HCC) Elevated Lipase on admission but no evidence of pancreatitis clinically or radiologically. Continue Lasix, Aldactone Evaluated by GI - MRCP shows a mass 4.4 x 3.4cm L lobe, likely HCC As per Radiologist Report and GI eval of scan results, MRI triple phase with contrast was requested, with view to possible need for biopsy - however the study was declined by Radiology Department for unclear reasons. After discussion with Gastroenterology, the recommendation was for discharge with out- patient [facility]: Dr. Guo [address] September, at 12pm Patient is hemodynamically stable for discharge with out-patient follow up. 4. BPH/Overactive bladder/multiple Bladder Calculi - Continue Tamsulosin and Vesicare. Urology evaluated for bladder calculi - recommend out-patient follow up. 5. RLS - Continue Requip 6. COPD - Stable - Continue Symbicort 7. Seizure disorder - Continue Keppra. 8. Thrombocytopenia sec to Liver Cirrhosis - no evidence of bruising/bleeding. 9. CKD 3 - appears stable. Creat at baseline. 10. Hypomagnesemia - repleted Plan is for discharge with out-patient Hepatology and Urology follow up.
--- NOTE | 2018-10-10 11:54 | DS ---
Physical Exam: SUBJECTIVE: Patient seen and examined at bedside. Having ongoing diarrhea, otherwise no acute complaints. OBJECTIVE: Vital Signs Period Temp Pulse Resp BP Sys/Eisenberg Pulse Ox Last 24 Hr 98.3 F 70 18 127/75 PHYSICAL EXAM GENERAL: A&Ox3, NAD HEENT: NC/AT, PERRLA, EOMI, MMM NECK: Trachea midline, full range of motion, supple. LUNGS: CTA b/l HEART: RRR no m/r/g ABDOMEN: non-tender, distended, tympanitic, trace fluid wave, at baseline from prior encounters EXTREMITIES: 2+ pulses, warm, well-perfused, no edema. 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 No asterixis. + Dysarthria is baseline w/o discrete lower CN deficit. PSYCH: Normal mood, normal affect. SKIN: Warm, dry, normal turgor, no rashes or lesions noted LABS HOSPITAL COURSE: Date of Admission:10/06/18 Patient is a 63 y/o M w/ PMHx cirrhosis, hepatitis C, COPD, pancreatic insufficiency, CKD, EtOH/cocaine/heroin abuse, esophageal varices s/p banding, Sz disorder in remission, RLS, p/w 1 day h/o of abdominal pain and discomfort, watery diarrhea, single dark stool noted, additionally +dysuria on ROS. Positive UA on admission, however all cultures negative. CT a/p identified cirrhosis and incidentally identified bladder calculi, for which urology was consulted and recommended outpatient f/u without further inpatient intervention. Otherwise ID and gastroenterology were consulted. Empiric ABx were given prior to clean cultures. Home medications were restarted and diet slowly advanced. MCRP w/o contrast identified previously known GI/hepatic disease as well as a 4.4 x 3.4 cm hepatic dome mass concerning for HCC; attending radiologist recommended contrast MRI to assess further. GI then recommended triple phase MRI w/ contrast for better visualization and assessment of the liver mass. Patient's creatinine was within acceptable limits for gadolinium study. However, at that point, attending radiologist declined to allow further imaging and did not communicate rationale to hospitalist team. Under the circumstances, GI arranged referral to outpatient hepatology follow up as outlined in discharge plan. Patient was additionally referred to outpatient urology and primary medical care follow up. Date of Discharge: 10/09/18 Minutes to complete discharge: 40 Discharge Summary Reason For Visit: ASCITES, HEPATIC CIRRHOSIS, GALLSTONE PANCREATITIS Condition: Stable - Instructions Diet, Activity, Other Instructions: You were hospitalized due to abdominal discomfort and diarrhea. You had an MRI scan of your liver which found a concerning mass, potentially representing cancer in your liver. The fish and wildlife technician recommended that you be kept inpatient for a second, more diagnostic MRI of the liver, and possible further testing from that point including a biopsy of your liver. The radiology doctor declined to pursue this MRI scan. You are therefore being referred to hepatology (liver medicine) service for outpatient workup of your liver. Appointments are being made on your behalf, please be certain to keep them. Please resume your home medications. You do not require any further prescriptions at this time. You are also being referred to regular gastroenterology, Dr. Alonzo, to urology for outpatient evaluation of small stones incidentally found in your bladder, and to primary medical care. Please keep appointments with these providers within 2 weeks of your discharge. If you experience any new or worsening abdominal pain, change in mental status, chest pain, shortness of breath, fever, chills, or any other new or concerning symptoms, please return to the Emergency Department. The following appointment has been made for you: Liver Doctor: Dr. Sari Ly [address] [place] [address], [address] [place] [address] Next Monday 10/16 at 12 pm. Please call to confirm and keep this appointment. It is urgently important for your health and well-being that you do so. Referrals: [facility] [place] [Provider Group] Sonny Alonzo DO [Staff Physician] - Tyree Brian MD [Staff Physician] - Disposition: HOME - Home Medications Comprehensive Discharge Medication List: Ambulatory Orders Folic Acid 1 mg PO DAILY 11/29/16 levETIRAcetam [Keppra -] 500 mg PO BID tablet 12/06/16 Oxybutynin Chloride [Oxybutynin Chloride ER] 10 mg PO DAILY 11/16/17 Ropinirole HCl [Requip] 0.25 mg PO DAILY 11/16/17 Tamsulosin HCl [Flomax -] 0.4 mg PO BID 11/16/17 Spironolactone [Aldactone -] 50 mg PO DAILY #30 tablet 02/03/18 Furosemide [Lasix] 40 mg PO DAILY #30 tablet 02/07/18 Multivitamin with Iron [Multivitamins with Iron] 1 each PO DAILY 04/27/18 Pantoprazole Sodium [Protonix -] 20 mg PO DAILY 04/27/18 Melatonin 5 mg PO HS PRN tab 04/28/18 Budesonide/Formeterol Fumarate [SYMBICORT 160/4.5mcg -] 1 inh PO BID 06/20/18 Lactulose 20 gm PO TID 06/20/18 Lipase/Protease/Amylase [Kwame Curry 36,000 Units Capsule] 1 cap PO DAILY 06/20/18 Xalatan 0.005% Eye Drops - 1 drop OU DAILY 06/20/18 This patient is new to me today: No Emergency Visit: No Critical Care patient: No - Discharge Referral Referred to [facility] No
== END 2018-10-09 19:13 | disposition home or self-care (01) | DRG 280 ==
LOC: JER 15:52 → JERBED 23:06 → J5S 10-06 00:43
PROVIDERS: ADMIT Internal Medicine
DX: K70.31 Alcoholic cirrhosis of liver with ascites (principal); N39.0 Urinary tract infection, site not specified; R19.7 Diarrhea, unspecified; I12.9 Hypertensive chronic kidney disease with stage 1 through stage 4 chronic kidney disease, or unspecified chronic kidney disease; D64.9 Anemia, unspecified; N40.0 Benign prostatic hyperplasia without lower urinary tract symptoms; G25.81 Restless legs syndrome; N18.3 Chronic kidney disease, stage 3 (moderate); D69.6 Thrombocytopenia, unspecified; E83.42 Hypomagnesemia; J44.9 Chronic obstructive pulmonary disease, unspecified; G40.909 Epilepsy, unspecified, not intractable, without status epilepticus; N21.0 Calculus in bladder; K21.9 Gastro-esophageal reflux disease without esophagitis; R16.1 Splenomegaly, not elsewhere classified; E88.09 Other disorders of plasma-protein metabolism, not elsewhere classified
CPT/HCPCS: 36415; 71045-TC-FY; 74176-TC; 74181-TC; 80053; 80307; 81003; 81015; 82272; 83605; 83690; 83735; 84100; 84478; 85025; 85610; 85730; 87045; 87046; 87086; 87205; 93005; 93010; 99282-25; J7030

== ENCOUNTER 2018-11-24 12:02 | Inpatient (IN) | payer OTHER ==
[2018-11-24] MEDS ORDERED: ACETAMINOPHEN 1000 MG/100 ML VIAL (NON FORMULARY) IVPB ONE (13:25)
[2018-11-24 14:13] LABS: BASO % 0.6 % (0-2.0); EOS % 4.1 % (0-4.5); HEMATOCRIT 37.6 % (35.4-49); HEMOGLOBIN 12.5 GM/dL (11.7-16.9); LYMPH % 16.1 % (8-40); MCH 29.7 pg (25.7-33.7); MCHC 33.1 g/dl (32.0-35.9); MEAN CELL VOLUME 89.6 fl (80-96); MEAN PLT VOLUME 9.8 fl (7.5-11.1); MONO % 22.2 % (3.8-10.2); PLATELET COUNT 101 K/MM3 (134-434); RBC 4.19 M/mm3 (4.00-5.60); RDW 18.5 % (11.9-15.9); WHITE BLOOD COUNT 6.5 K/mm3 (4.0-10.0)
[2018-11-24] MEDS ORDERED: ACETAMINOPHEN INJECTION 100 ML IVPB ONE (14:15)
[2018-11-24 14:52] LABS: EPI CELLS 0.7 /HPF (0-5/HPF); PH,URINE 5.5 (5.0-8.0); URINE APPEARANCE CLOUDY; URINE BACTERIA 34.5 /hpf (NEGATIVE); URINE BILIRUBIN NEGATIVE (NEGATIVE); URINE CASTS 5 /lpf (0-8); URINE COLOR YELLOW; URINE GLUCOSE (UA) NEGATIVE (NEGATIVE); URINE KETONE NEGATIVE (NEGATIVE); URINE LEUK ESTERASE 3+ (NEGATIVE); URINE NITRITE NEGATIVE (NEGATIVE); URINE PROTEIN NEGATIVE (NEGATIVE); URINE RBC 2 /hpf (0-4); URINE UROBILINOGEN 0.2 mg/dL (0.2-1.0); URINE WBC 152 /hpf (0-5)
[2018-11-24 14:52] LABS: ALBUMIN 3.1 g/dl (3.4-5.0); ALK PHOS 192 U/L (45-117); ANION GAP 5 MMOL/L (8-16); BILIRUBIN,TOTAL 0.6 mg/dL (0.2-1); BLOOD UREA NITROGEN 48 mg/dL (7-18); CALCIUM 9.4 mg/dL (8.5-10.1); CHLORIDE 106 mmol/L (98-107); CO2 26 mmol/L (21-32); GLUCOSE,RANDOM 89 mg/dL (74-106); POTASSIUM 5.3 mmol/L (3.5-5.1); SGOT/AST 54 U/L (15-37); SGPT/ALT 33 U/L (13-61); SODIUM 136 mmol/L (136-145); TOT PROT 8.5 g/dl (6.4-8.2)
[2018-11-24 15:08] LABS: ANISOCYTOSIS 0; MACROCYTOSIS 0; PLATELET ESTIMATE DECREASED
--- NOTE | 2018-11-24 15:30 | PDOC ---
History of Present Illness - General Chief Complaint: Weakness Stated Complaint: WEAKNESS Time Seen by Provider: 11/24/18 12:30 History Source: Patient - History of Present Illness Timing/Duration: other (yesterday) Past History - Past Medical History Allergies/Adverse Reactions: Allergies Allergy/AdvReac Type Severity Reaction Status Date / Time Penicillins Allergy Unknown Verified 11/24/18 12:27 aspirin AdvReac Intermediate Verified 11/24/18 12:27 Home Medications: Ambulatory Orders Folic Acid 1 mg PO DAILY 11/29/16 levETIRAcetam [Keppra -] 500 mg PO BID tablet 12/06/16 Oxybutynin Chloride [Oxybutynin Chloride ER] 10 mg PO DAILY 11/16/17 Ropinirole HCl [Requip] 0.25 mg PO DAILY 11/16/17 Tamsulosin HCl [Flomax -] 0.4 mg PO BID 11/16/17 Spironolactone [Aldactone -] 50 mg PO DAILY #30 tablet 02/03/18 Furosemide [Lasix] 40 mg PO DAILY #30 tablet 02/07/18 Multivitamin with Iron [Multivitamins with Iron] 1 each PO DAILY 04/27/18 Pantoprazole Sodium [Protonix -] 20 mg PO DAILY 04/27/18 Melatonin 5 mg PO HS PRN tab 04/28/18 Budesonide/Formeterol Fumarate [SYMBICORT 160/4.5mcg -] 1 inh PO BID 06/20/18 Lactulose 20 gm PO TID 06/20/18 Lipase/Protease/Amylase [Creon Dr 36,000 Units Capsule] 36,000 unit PO DAILY Xalatan 0.005% Eye Drops - 1 drop OU DAILY 06/20/18 Cardiac Disorders: (CKD) CVA: (hepatic encephalopathy) COPD: No CHF: No Diabetes: No GI Disorders: Yes (GI bleed;GERD;ESOPHAGEAL VARICES) Disorders: Yes (CKD,STONES,BPH, hepatitis B and C) HTN: Yes Hypercholesterolemia: Yes Liver Disease: Yes (CIRRHOSIS,HEP C) Seizures: Yes Thyroid Disease: No - Surgical History Abdominal Surgery: Yes (EGD,COLONOSCOPY) - Immunization History Immunization Up to Date: Yes - Suicide/Smoking/Psychosocial Hx Smoking History: Never smoked Have you smoked in the past 12 months: No Number of Cigarettes Smoked Daily: 1 If you are a former smoker, when did you quit?: 2017 Information on smoking cessation initiated: No 'Breaking Loose' booklet given: 09/10/13 Hx Alcohol Use: No Drug/Substance Use Hx: No Substance Use Type: None Hx Substance Use Treatment: No Review of Systems - Review of Systems Respiratory: No: Shortness of Breath Cardiac (ROS): No: Chest Pain, Palpitations ABD/GI: No: Diarrhea, Nausea, Vomiting, Abdominal cramping Musculoskeletal: No: Back Pain Neurological: No: Numbness, Tingling, Weakness *Physical Exam - Vital Signs Last Vital Signs Temp Pulse Resp BP Pulse Ox 97.9 F 68 16 133/67 100 11/24/18 12:24 11/24/18 12:24 11/24/18 12:24 11/24/18 12:24 11/24/18 12:24 - Physical Exam General Appearance: Yes: Appropriately Dressed. No: Apparent Distress HEENT: positive: Normal Voice Neck: positive: Supple Respiratory/Chest: negative: Respiratory Distress Gastrointestinal/Abdominal: positive: Soft. negative: Tender Musculoskeletal: negative: CVA Tenderness Extremity: positive: Normal Inspection, Normal Range of Motion. negative: Tender, Swelling Integumentary: positive: Dry, Warm Neurologic: positive: Fully Oriented, Alert, Normal Mood/Affect, Motor Strength /5 ED Treatment Course - LABORATORY CBC & Chemistry Diagram: 11/24/18 14:00 11/24/18 14:00 - ADDITIONAL ORDERS Additional order review: Laboratory Results 11/24/18 11/24/18 14:00 13:24 Sodium 136 Potassium 5.3 H Chloride 106 Carbon Dioxide 26 Anion Gap 5 L BUN 48 H Creatinine 3.0 H Creat Clearance w eGFR 21.17 Random Glucose 89 Calcium 9.4 Total Bilirubin 0.6 AST 54 H ALT 33 Alkaline Phosphatase 192 H Total Protein 8.5 H Albumin 3.1 L Urine Color Yellow Urine Appearance Cloudy Urine pH 5.5 Ur Specific [place] 1.014 Urine Protein Negative Urine Glucose (UA) Negative Urine Ketones Negative Urine Blood Negative Urine Nitrite Negative Urine Bilirubin Negative Urine Urobilinogen 0.2 Ur Leukocyte Esterase 3+ H Urine WBC (Auto) 152 Urine RBC (Auto) 2 Urine Casts (Auto) 5 U Epithel Cells (Auto) 0.7 Urine Bacteria (Auto) 34.5 11/24/18 14:00 RBC 4.19 MCV 89.6 MCHC 33.1 RDW 18.5 H MPV 9.8 Neutrophils % 57.0 Lymphocytes % 16.1 Monocytes % 22.2 H Eosinophils % 4.1 Basophils % 0.6 - RADIOLOGY Radiology Studies Ordered: Category Date Time Status KIDNEY / RENAL US [US] Stat Ultrasound 11/24/18 13:25 Ordered - Medications Given in the ED: ED Medications Discontinued Medications Generic Name Dose Route Start Last Admin Trade Name Freq PRN Reason Stop Dose Admin Acetaminophen 1,000 mg 11/24/18 13:25 11/24/18 14:20 Ofirmev Injection - IVPB 11/24/18 13:26 1,000 mg ONCE ONE Administration Medical Decision Making - Medical Decision Making 11/24/18 15:36 63-year-old male, HCV cirrhosis (ascites, esophageal banding), known liver mass (beign w/u for possible malignancy), pancreatic insufficiency, ETOH/cocaine/ heroin abuse, COPD, CKD, RLS, chronic back pain with multiple disc herniation to LS spine on recent MRI, on gabapentin, ambulates with walker, here w/ complaint that since yesterday, he has had difficulty ambulating though states he is unsure why. Does states it could be due to his RLS. Denies pain, LE weakness, sensory changes, saddle anesthesia or bowel or bladder incontinence. No trauma See exam Difficulty ambulating No LE weakness/back pain No recent trauma Possibly due to known h/o RLS -labs r/o other source -reassess 11/24/18 15:40 Dr Osborne, district court justice at [facility], contacted me with information regarding patient. [facility] patient was seen by him 3 days ago and found to have a creatinine of 3, which is almost double from cr of 1.7, 09/2018. States pt known to have bladder stones, which was found incidentally while inpatient for diarrhea recently. Recommends labs, renal ultrasound and renal consult at this time. States if admitted, patient to go to the hospitalist service 11/24/18 15:47 Cr 3 w/ K of 5.3. EKG pending. Renal US read as normal. Renal paged, a/w callback to discuss dispo. Of note pt denies n/v, acute change in UO, CP or SOB. 11/24/18 15:[address] Samarneh who knows patient well and states patient should be admitted for acute renal failure. Asim requesting Utox, urine creatinine, and urine electrolytes and states he will be down to evaluate patient *DC/Admit/Observation/Transfer Diagnosis at time of Disposition: ARF (acute renal failure) Qualifiers: Acute renal failure type: unspecified Qualified Code(s): N17.9 - Acute kidney failure, unspecified - Discharge Dispostion Condition at time of disposition: Fair Decision to Admit order: Yes - Referrals Referrals: Rangel Bernard MD [Primary Care Provider] - - Patient Instructions - Post Discharge Activity
--- NOTE | 2018-11-24 16:17 | HP ---
CHIEF COMPLAINT: "I have trouble walking" PCP: Dr Osborne HISTORY OF PRESENT ILLNESS: This is a 63 yo M with PMH of CKD, renal calculi, HCV cirrhosis (ascites, esophageal banding), known liver mass (beign w/u for possible malignancy), pancreatic insufficiency, ETOH/cocaine/heroin abuse, COPD, RLS, chronic back pain with multiple disc herniation to LS spine on recent MRI, who presents due to difficulty walking since yesterday. incidentally on labs patient found to have creat 3 up from 1.7 09/2018. Patient is a poor historian. He reports taking large amount of ibuprofen for back and leg pain over the past several weeks. reports occasional dysuria. denies f/c, hematuria, polyiria. He is on gabapentin (recentlys tarted and ambulates with walker. Denies LE weakness, sensory changes, saddle anesthesia or bowel or bladder incontinence. No trauma ER course was notable for: (1)ekg, labs (2)renal us (3)iv tylenol Recent Travel: denies PAST MEDICAL HISTORY: as above PAST SURGICAL HISTORY: as above Social History: Smoking: denies Alcohol: cocaine heroin Drugs: etoh abuse Family History: noncontributory Allergies Penicillins Allergy (Unknown, Verified 11/24/18 12:27) aspirin Adverse Reaction (Intermediate, Verified 11/24/18 12:27) HOME MEDICATIONS: Home Medications Medication Instructions Recorded Folic Acid 1 mg PO DAILY 11/29/16 levETIRAcetam [Keppra -] 500 mg PO BID tablet 12/06/16 Oxybutynin Chloride [Oxybutynin 10 mg PO DAILY 11/16/17 Chloride ER] Ropinirole HCl [Requip] 0.25 mg PO DAILY 11/16/17 Tamsulosin HCl [Flomax -] 0.4 mg PO BID 11/16/17 Spironolactone [Aldactone -] 50 mg PO DAILY #30 tablet 02/03/18 Furosemide [Lasix] 40 mg PO DAILY #30 tablet 02/07/18 Multivitamin with Iron 1 each PO DAILY 04/27/18 [Multivitamins with Iron] Pantoprazole Sodium [Protonix -] 20 mg PO DAILY 04/27/18 Melatonin 5 mg PO HS PRN tab 04/28/18 Budesonide/Formeterol Fumarate 1 inh PO BID 06/20/18 [SYMBICORT 160/4.5mcg -] Lactulose 20 gm PO TID 06/20/18 Lipase/Protease/Amylase [Kwame Curry 36,000 unit PO DAILY 06/20/18 36,000 Units Capsule] Xalatan 0.005% Eye Drops - 1 drop OU DAILY 06/20/18 REVIEW OF SYSTEMS CONSTITUTIONAL: Absent: fever, chills HEENT: Absent: rhinorrhea, nasal congestion, throat pain CARDIOVASCULAR: Absent: chest pain, syncope, palpitations, irregular heart rate, lightheadedness , peripheral edema RESPIRATORY: Absent: cough, shortness of breath GASTROINTESTINAL: Absent: abdominal pain, abdominal distension, nausea, vomiting, diarrhea, constipation, melena, hematochezia GENITOURINARY: Absent: dysuria MUSCULOSKELETAL: Absent: back pain, neck pain SKIN: Absent: rash, itching, pallor HEMATOLOGIC/IMMUNOLOGIC: Absent: easy bleeding, easy bruising ENDOCRINE: Absent: unexplained weight gain, unexplained weight loss NEUROLOGIC: Absent: headache, focal weakness or paresthesias PSYCHIATRIC: Absent: anxiety, depression PHYSICAL EXAMINATION Vital Signs - 24 hr 11/24/18 12:24 Temperature 97.9 F Pulse Rate 68 Respiratory 16 Rate Blood Pressure 133/67 O2 Sat by Pulse 100 Oximetry (%) GENERAL: Awake, alert, and fully oriented, in no acute distress, cachectic, slurred speech. HEAD: Normal with no signs of trauma. EYES: Pupils equal, round and reactive to light, extraocular movements intact, sclera anicteric, conjunctiva clear. EARS, NOSE, THROAT: Moist mucous membranes. NECK: supple LUNGS: Breath sounds equal, clear to auscultation bilaterally. HEART: Regular rate and rhythm, normal S1 and S2 ABDOMEN: Soft, mildly tender in suprapubic region, not distended, normoactive bowel sounds, no guarding, no rebound, no masses. MUSCULOSKELETAL: No CVA tenderness. UPPER EXTREMITIES: 2+ pulses, warm, well-perfused. No peripheral edema. LOWER EXTREMITIES: warm, well-perfused. No calf tenderness. No peripheral edema. NEUROLOGICAL: Cranial nerves II-XII grossly intact. Normal speech. pain with b/ l hip flexion in his thighs. 2+ patellar reflexes PSYCHIATRIC: Cooperative. Good eye contact. Appropriate mood and affect. SKIN: Warm, dry Laboratory Results - last 24 hr 11/24/18 11/24/18 11/24/18 13:24 14:00 14:00 WBC 6.5 RBC 4.19 Hgb 12.5 Hct 37.6 D MCV 89.6 MCH 29.7 MCHC 33.1 RDW 18.5 H Plt Count 101 L D MPV 9.8 Absolute Neuts (auto) 3.7 Neutrophils % 57.0 Neutrophils % (Manual) 55.2 Band Neutrophils % 0.0 Lymphocytes % 16.1 Lymphocytes % (Manual) 18.8 Monocytes % 22.2 H Monocytes % (Manual) 21 H Eosinophils % 4.1 Eosinophils % (Manual) 2.1 Basophils % 0.6 Basophils % (Manual) 1.0 Myelocytes % (Man) 0 Promyelocytes % (Man) 0 Blast Cells % (Manual) 0 Nucleated RBC % 0 Metamyelocytes 0 Hypochromia 0 Platelet Estimate Decreased Polychromasia 0 Poikilocytosis 0 Anisocytosis 0 Microcytosis 0 Macrocytosis 0 Sodium 136 Potassium 5.3 H Chloride 106 Carbon Dioxide 26 Anion Gap 5 L BUN 48 H Creatinine 3.0 H Creat Clearance w eGFR 21.17 Random Glucose 89 Calcium 9.4 Total Bilirubin 0.6 AST 54 H ALT 33 Alkaline Phosphatase 192 H Total Protein 8.5 H Albumin 3.1 L Urine Color Yellow Urine Appearance Cloudy Urine pH 5.5 Ur Specific [place] 1.014 Urine Protein Negative Urine Glucose (UA) Negative Urine Ketones Negative Urine Blood Negative Urine Nitrite Negative Urine Bilirubin Negative Urine Urobilinogen 0.2 Ur Leukocyte Esterase 3+ H Urine WBC (Auto) 152 Urine RBC (Auto) 2 Urine Casts (Auto) 5 U Epithel Cells (Auto) 0.7 Urine Bacteria (Auto) 34.5 ASSESSMENT/PLAN: This is a 63 yo M with PMH of CKD, renal calculi, HCV cirrhosis (ascites, esophageal banding), known liver mass (beign w/u for possible malignancy), pancreatic insufficiency, ETOH/cocaine/heroin abuse, COPD, RLS, chronic back pain with multiple disc herniation to LS spine on recent MRI, who presents due to difficulty walking since yesterday, found to have creat 3 SILVANA on CKD Difficulty ambulating/RLS HCV cirrhosis liver mass possible ca pancreatic insufficiency COPD chronic back pain -possible SILVANA etiology includes NSAID use, HCV nephropathy, UTI related or obstructive. -IV hydration -rocephin; f/u urine culture -urine tox -renal consult -continue home keppra and gabapentin -neurosurgery consult Visit type - Emergency Visit Emergency Visit: Yes Care time: The patient presented to the Emergency Department on the above date and was hospitalized for further evaluation of their emergent condition. - New Patient This patient is new to me today: Yes Date on this admission: 11/24/18 - Critical Care Critical Care patient: No
[2018-11-24] MEDS ORDERED: ALBUTEROL SO4 0.083% IH SOL 2.5 MG/3 ML VIAL.NEB. NEB PRN (16:41)
--- NOTE | 2018-11-24 16:43 | PN ---
Teaching Attending Note Name of Resident: Maura Nova ATTENDING PHYSICIAN STATEMENT I saw and evaluated the patient. I reviewed the resident's note and discussed the case with the resident. I agree with the resident's findings and plan as documented. SUBJECTIVE:63yo M with PMH ETOH cirrhosis, HCV (unclear if treated), seizure, pancreatic insufficiency, COPD, CKD, HTN, variceal bleeding s/p banding and remote cocaine dependence presented to the ED for worsening back pain sometimes radiating to his anterior thighs, states its starting to affect the way he walks. pt is a poor historian but states hes been taking 3-4 tabs of motrin once to twice a day for the pain with modest relief. went to his PMD and MRI of his back whichhe seems unclear of what the next step was. admits to urinary frequency. denies CP, SOB, fever, chills, N/V/C/D, dysuria, bowel/bladder incontinence, saddle anesthesia, OBJECTIVE: Last Vital Signs Temp Pulse Resp BP Pulse Ox 97.9 F 68 16 133/67 100 11/24/18 12:24 11/24/18 12:24 11/24/18 12:24 11/24/18 12:24 11/24/18 12:24 Intake & Output 11/21/18 11/22/18 11/23/18 11/24/18 23:59 23:59 23:59 23:59 Weight 140 lb General NAD, speech is slow CV S1 S2 RRR no murmur/rub/gallop Lungs CTA B/L no wheezing/rales/rhonchi Abdomen soft +suprapubic tenderness no rebound or guarding Extremities no pedal edema negative SLR on both sides Back no bone or muscular tenderness along the spine. good forward flexion ASSESSMENT AND PLAN: 63yo M with PMH ETOH cirrhosis, HCV (unclear if treated), seizure, pancreatic insufficiency, COPD, CKD, HTN, variceal bleeding s/p banding and remote cocaine dependence presented to the ED with difficulty ambulating and found to have acute renal failure 1. Acute on CKD- liekly due to medications vs NSAID vs UTI. making good urine. will start 1/2NS and monitor for renal recovery. monitor UOP. mariano not necessary at this time as he can monitor in urinal. renal u/s noted. will hold diuretics. nephro consulted 2. Difficulty ambulating- due to multi-level disc disease. MRI reviewed however does not have any neurolgical deficits or signs of cord compression. will have PT eval. will need neurosurg eval as outpatient. will give tylenol as needed for pain. avoid NSAIDS 3. +UA- has urinary frequency. will start ceftriaxone. f/u cx 4. Hyperkalemia- due to SILVANA. no peaked T waves. making good urine. will repeat 5. thrombocytopenia- due to cirrhosis. no signs of bleeding. above baseline 6. ETOH cirrhosis- appears to be well compensated. GI outpatient management 7. seizure- no reported seizure activity. cont antieleptics 8. Pancreatic insuff- cont pancrealipase 9. COPD- no signs of exacerbation. not on steroids 10. HTN- controlled 11. Variceal bleeding s/p banding- 12. DVT ppx- hep sq
--- NOTE | 2018-11-24 17:16 | CONSULT ---
Consult Consult Specialty:: Nephrology Reason for Consultation:: SILVANA - History of Present Illness Chief Complaint: sent in for abnormal labs History of Present Illness: PT is a 63 year old male with pmhx of CKD, HCV, multi drug abuse, pancreatic insufficiency, COPD and chornic back pain who was sent in for renal failure. He has history of CKD and he follows with me in the office. He missed his last few appointments. He complains of fatigue and malaise. He denies shortness of breath or lower ext edema. He complains of muscle pains. - History Source History Provided By: Patient, Medical Record - Past Medical History RN CASE MANAGEMENT: Yes: Seizure Cardio/Vascular: Yes: HTN Pulmonary: Yes: COPD Gastrointestinal: Yes: Esophageal Varices (Unclear by his history), GERD Hepatobiliary: Yes: Cirrhosis, Hepatitis C Renal/: Yes: Renal Inusuff, BPH - Alcohol/Substance Use Hx Alcohol Use: No History of Substance Use: reports: Cocaine (states abstinence for 1 year), Heroin - Smoking History Smoking history: Never smoked Have you smoked in the past 12 months: No Aproximately how many cigarettes per day: 1 If you are a former smoker, when did you quit?: 2017 - Social History Usual Living Arrangement: Alone ADL: Support Services Occupation: not currently working History of Recent Travel: No Home Medications - Allergies Allergies/Adverse Reactions: Allergies Allergy/AdvReac Type Severity Reaction Status Date / Time Penicillins Allergy Unknown Verified 11/24/18 12:27 aspirin AdvReac Intermediate Verified 11/24/18 12:27 - Home Medications Home Medications: Ambulatory Orders Folic Acid 1 mg PO DAILY 11/29/16 levETIRAcetam [Keppra -] 500 mg PO BID tablet 12/06/16 Oxybutynin Chloride [Oxybutynin Chloride ER] 10 mg PO DAILY 11/16/17 Ropinirole HCl [Requip] 0.25 mg PO DAILY 11/16/17 Tamsulosin HCl [Flomax -] 0.4 mg PO BID 11/16/17 Spironolactone [Aldactone -] 50 mg PO DAILY #30 tablet 02/03/18 Furosemide [Lasix] 40 mg PO DAILY #30 tablet 02/07/18 Multivitamin with Iron [Multivitamins with Iron] 1 each PO DAILY 04/27/18 Pantoprazole Sodium [Protonix -] 20 mg PO DAILY 04/27/18 Melatonin 5 mg PO HS PRN tab 04/28/18 Budesonide/Formeterol Fumarate [SYMBICORT 160/4.5mcg -] 1 inh PO BID 06/20/18 Lactulose 20 gm PO TID 06/20/18 Lipase/Protease/Amylase [Kwame Curry 36,000 Units Capsule] 36,000 unit PO DAILY Xalatan 0.005% Eye Drops - 1 drop OU DAILY 06/20/18 Albuterol 0.083% Nebulizer Belen [Ventolin 0.083% Nebulizer Soln -] 1 amp IH Q4H PRN 11/24/18 Gabapentin 300 mg PO BID 11/24/18 Family Disease History - Family Disease History Family History: Denies Review of Systems - Review of Systems Constitutional: reports: Malaise. denies: Chills Eyes: reports: No Symptoms HENT: reports: No Symptoms Neck: reports: No Symptoms Cardiovascular: reports: No Symptoms Respiratory: reports: No Symptoms Gastrointestinal: reports: No Symptoms Genitourinary: reports: No Symptoms Musculoskeletal: reports: Muscle Pain, Muscle Cramps, Muscle Weakness Integumentary: reports: No Symptoms Neurological: reports: No Symptoms Endocrine: reports: No Symptoms Hematology/Lymphatic: reports: No Symptoms Psychiatric: reports: No Symptoms Physical Exam Vital Signs: Vital Signs Temperature 97.9 F 11/24/18 12:24 Pulse Rate 68 11/24/18 12:24 Respiratory Rate 16 11/24/18 12:24 Blood Pressure 133/67 11/24/18 12:24 O2 Sat by Pulse Oximetry (%) 100 11/24/18 12:24 Constitutional: Yes: Calm Eyes: Yes: Conjunctiva Clear HENT: Yes: Atraumatic Neck: Yes: Supple Cardiovascular: Yes: S1, S2 Respiratory: Yes: CTA Bilaterally Gastrointestinal: Yes: Soft Renal/: Yes: WNL Edema: No Neurological: Yes: Oriented Psychiatric: Yes: Oriented Labs: CBC, BMP 11/24/18 14:00 11/24/18 14:00 Laboratory Tests 10/06/18 10/07/18 10/08/18 06:45 07:00 07:30 WBC Hgb Sodium Potassium Creatinine 1.6 H 1.7 H 1.7 H Urine Color Urine Protein Urine Blood 11/24/18 11/24/18 11/24/18 13:24 14:00 14:00 WBC 6.5 Hgb 12.5 Sodium 136 Potassium 5.3 H Creatinine 3.0 H Urine Color Yellow Urine Protein Negative Urine Blood Negative Imaging - Results Ultrasound: Report Reviewed Assessment/Plan Current Medications Generic Name Dose Route Start Last Admin Trade Name Freq PRN Reason Stop Dose Admin Albuterol Sulfate 1 amp 11/24/18 16:41 Ventolin 0.083% Nebulizer Soln - NEB Q4H PRN SHORT OF BREATH/WHEEZING Budesonide/Formoterol Fumarate 1 puff 11/24/18 22:00 Symbicort 160/4.5mcg - IH BID PIERO Folic Acid 1 mg 11/25/18 10:00 Folic Acid - PO DAILY PIERO Furosemide 40 mg 11/25/18 10:00 Lasix - PO DAILY PIERO Gabapentin 300 mg 11/24/18 22:00 Neurontin - PO BID PIERO Lactulose 20 gm 11/24/18 22:00 Cephulac (Oral Use) PO TID PIERO Levetiracetam 500 mg 11/24/18 22:00 Keppra - PO BID [facility] Melatonin 5 mg 11/24/18 16:41 Melatonin PO HS PRN INSOMNIA Oxybutynin Chloride 10 mg 11/25/18 10:00 Ditropan - PO DAILY [facility] Pancrelipase cap 11/25/18 10:00 Credillan Curry 36,000 Units Capsule PO DAILY PIERO Pantoprazole Sodium 20 mg 11/25/18 10:00 Protonix - PO DAILY [facility] Ropinirole HCl 0.25 mg 11/25/18 10:00 Requip - PO DAILY [facility] Spironolactone 50 mg 11/25/18 10:00 Aldactone - PO DAILY [facility] Tamsulosin HCl 0.4 mg 11/24/18 22:00 Flomax - PO BID PIERO Impression 1. CKD 2. Hep C 3. liver cirrhosis 4. ascites 5. epilepsy 6. substance abuse 7. hepatic encephalopathy 8. SILVANA Plan - check cpk - send urine lytes and road marker - hold diuretics for now - repeat labs in am - renal ultrasound reviewed - will follow Dr Williamson
[2018-11-24] MEDS ORDERED: SODIUM CHLORIDE 0.45% 1,000 ML IV SCH (17:30)
[2018-11-24] MEDS ORDERED: CEFTRIAXONE 2 GM/100 ML BAG IVPB ONE (18:01)
[2018-11-24] MEDS: CEFTRIAXONE 2 GM in DEXTROSE 5%-WATER 100 ML IVPB SCH (18:02)
[2018-11-24 18:18] LABS: COCAINE, UR NEGATIVE ng/ml (CUTOFF=300); METHADONE, UR NEGATIVE ng/ml (CUTOFF=300); OPIATES, URI NEGATIVE ng/ml (CUTOFF=300); PHENCYCLIDINE,URINE NEGATIVE ng/ml (CUTOFF=25); URINE AMPHETAMINES NEGATIVE ng/ml (CUTOFF=500); URINE BARBITURATES NEGATIVE ng/ml (CUTOFF=200); URINE BENZODIAZEPINES NEGATIVE ng/ml (CUTOFF=200)
[2018-11-24] MEDS: LACTULOSE 20 GM/30 ML UDC (FOR ORAL USE ONLY) PO SCH ×2 (22:14→22:20)
[2018-11-24] MEDS: MELATONIN 5 MG TABLETS PO PRN (22:15)
[2018-11-24] MEDS: GABAPENTIN 300 MG CAPSULE (FP) PO SCH (22:15)
[2018-11-24] MEDS: TAMSULOSIN HCL 0.4 MG CAP PO SCH (22:15)
[2018-11-24] MEDS: levETIRAcetam 500 MG TABLET (FP) PO SCH (22:15)
[2018-11-24] MEDS: HEPARIN NA (PORCINE) 5,000 UNITS/ML 1ML VIAL SQ SCH (22:15)
[2018-11-24] MEDS: BUDESONIDE/FORMETEROL FUMARATE 160/4.5 mcg INHALER IH SCH (22:59)
[2018-11-25] MEDS: HEPARIN NA (PORCINE) 5,000 UNITS/ML 1ML VIAL SQ SCH ×3 (06:05→21:33)
[2018-11-25] MEDS: LACTULOSE 20 GM/30 ML UDC (FOR ORAL USE ONLY) PO SCH ×3 (06:05→21:49)
[2018-11-25] MEDS ORDERED: PT OWN MED DRAWER 7, Y5N ONE ×3 (07:27→20:17)
[2018-11-25] MEDS: LIPASE/PROTEASE/AMYLASE 36,000 UNIT CAPSULE PO SCH ×3 (07:28→17:27)
[2018-11-25 08:11] LABS: EOS % 5.9 % (0-4.5); HEMATOCRIT 36.8 % (35.4-49); HEMOGLOBIN 12.2 GM/dL (11.7-16.9); LYMPH % 20.8 % (8-40); MCH 29.8 pg (25.7-33.7); MCHC 33.1 g/dl (32.0-35.9); MEAN CELL VOLUME 90.1 fl (80-96); MEAN PLT VOLUME 9.5 fl (7.5-11.1); MONO % 20.6 % (3.8-10.2); NEUT % 51.7 % (42.8-82.8); PLATELET COUNT 79 K/MM3 (134-434); RBC 4.08 M/mm3 (4.00-5.60); RDW 18.6 % (11.9-15.9); WHITE BLOOD COUNT 5.4 K/mm3 (4.0-10.0)
[2018-11-25 09:43] LABS: ALK PHOS 186 U/L (45-117); ANION GAP 7 MMOL/L (8-16); BILIRUBIN,TOTAL 0.5 mg/dL (0.2-1); BLOOD UREA NITROGEN 44 mg/dL (7-18); CALCIUM 8.8 mg/dL (8.5-10.1); CHLORIDE 108 mmol/L (98-107); CO2 27 mmol/L (21-32); CREATININE 2.9 mg/dL (0.55-1.3); GLUCOSE,RANDOM 104 mg/dL (74-106); POTASSIUM 4.4 mmol/L (3.5-5.1); SGOT/AST 38 U/L (15-37); SGPT/ALT 28 U/L (13-61); SODIUM 141 mmol/L (136-145); TOT PROT 7.7 g/dl (6.4-8.2)
--- NOTE | 2018-11-25 09:43 | EKG ---
Test Reason : Blood Pressure : / mmHG Vent. Rate : 054 BPM Atrial Rate : 054 BPM P-R Int : 164 ms QRS Dur : 090 ms QT Int : 450 ms P-R-T Axes : 069 013 056 degrees QTc Int : 426 ms SINUS BRADYCARDIA WITH SINUS ARRHYTHMIA MINIMAL VOLTAGE CRITERIA FOR LVH, MAY BE NORMAL VARIANT SEPTAL INFARCT , AGE UNDETERMINED ABNORMAL ECG WHEN COMPARED WITH ECG OF 05-OCT-2018 22:36, SEPTAL INFARCT IS NOW PRESENT T WAVE AMPLITUDE HAS INCREASED IN LATERAL LEADS Confirmed by ETHEL BOYD, CHEIKH ([id number]) on 11/25/2018 9:43:11 AM Referred By: Confirmed By:CHEIKH DAVENPORT MD
[2018-11-25] MEDS ORDERED: SPIRONOLACTONE 25 MG TABLET (FP) PO SCH (10:00)
[2018-11-25] MEDS ORDERED: LIPASE/PROTEASE/AMYLASE 36,000 UNIT CAPSULE PO SCH (10:00)
[2018-11-25] MEDS ORDERED: FUROSEMIDE 40 MG TABLET (FP) PO SCH (10:00)
[2018-11-25] MEDS ORDERED: rOPINIRole HCL 0.25 MG TABLET PO SCH (10:00)
--- NOTE | 2018-11-25 10:06 | CONSULT ---
Consult - text type - Consultation Consultation Note: Patient is a 63 year old male with a history of chronic back pain and imbalance requiring use of a walker. He has medical problems including Hepatitis and substance abuse history. The patient denies any aggravation of back pain with vibration and jostling such as riding in a car over a bumpy road, pot holes or rail road tracks. The patient does not have aggravation of symptoms associated with Valsalvas maneuver. The patient does not walk better with a stooped posture such as pushing a shopping cart. He describes his difficulties which seem more like imbalance rather than neurogenic claudication. MRI Lumbar demonstrates all levels with moderate to severe spondylosis with osteophytes, disc bulges and hypertrophic facets and ligamentum flavum. There is no clear focal pathology which may be amenable to direct surgical intervention. The patient has significant symptoms of Cervical Spondylotic Myelopathy with numbness and tingling in the hands. The patienthas been dropping things and has problems with fine motor tasks. He was unable to open a packet of maple syrup for his breakfast and describes problems fastening buttons and tying his shoes. He also has severe imbalance. The patient has had Physical Therapy in the past without benefit. The patient describes severe limitations of activities of daily living and a poor quality of life. With regards to his Lumbar spine, I described the potential role of injections, bracing, and Physical Therapy as well as medical management in detail. I feel that he would benefit from Cervical MRI at this time.
[2018-11-25] MEDS ORDERED: DEXTROSE 5%-WATER 100 ML IVPB ONE (10:29)
[2018-11-25] MEDS: OXYBUTYNIN CHLORIDE 5 MG TABLET PO SCH (11:11)
[2018-11-25] MEDS: GABAPENTIN 300 MG CAPSULE (FP) PO SCH ×2 (11:12→21:49)
[2018-11-25] MEDS: FOLIC ACID 1 MG TABLET (FP) PO SCH (11:12)
[2018-11-25] MEDS: CEFTRIAXONE 2 GM in DEXTROSE 5%-WATER 100 ML IVPB SCH (11:12)
[2018-11-25] MEDS: TAMSULOSIN HCL 0.4 MG CAP PO SCH ×2 (11:12→21:49)
[2018-11-25] MEDS: PANTOPRAZOLE 20 MG TABLET (FP) PO SCH (11:12)
[2018-11-25] MEDS: levETIRAcetam 500 MG TABLET (FP) PO SCH ×2 (11:12→21:49)
--- NOTE | 2018-11-25 11:22 | PN ---
Progress Note (short form) - Note Progress Note: asymptomatic. denies CP, SOB, fever, chills, N/V/C/D Current Medications Generic Name Dose Route Start Last Admin Trade Name Capo PRN Reason Stop Dose Admin Albuterol Sulfate 1 amp 11/24/18 16:41 Ventolin 0.083% Nebulizer Soln - NEB Q4H PRN SHORT OF BREATH/WHEEZING Budesonide/Formoterol Fumarate 1 puff 11/24/18 22:00 11/24/18 22:59 Symbicort 160/4.5mcg - IH Not Given BID PIERO Folic Acid 1 mg 11/25/18 10:00 11/25/18 11:12 Folic Acid - PO 1 mg DAILY PIERO Administration Gabapentin 300 mg 11/24/18 22:00 11/25/18 11:12 Neurontin - PO 300 mg BID PIERO Administration Heparin Sodium (Porcine) 5,000 unit 11/24/18 22:00 11/25/18 06:05 Heparin - SQ Not Given TID PIERO Ceftriaxone Sodium 2 gm/ 100 mls @ 200 mls/hr 11/24/18 17:45 11/25/18 11:12 Dextrose IVPB 200 mls/hr DAILY PIERO Administration Lactulose 20 gm 11/24/18 22:00 11/25/18 06:05 Cephulac (Oral Use) PO 20 gm TID PIERO Administration Levetiracetam 500 mg 11/24/18 22:00 11/25/18 11:12 Keppra - PO 500 mg BID PIERO Administration Melatonin 5 mg 11/24/18 16:41 11/24/18 22:15 Melatonin PO 5 mg HS PRN Administration INSOMNIA Oxybutynin Chloride 10 mg 11/25/18 10:00 11/25/18 11:11 Ditropan - PO 10 mg DAILY PIERO Administration Pancrelipase 2 cap 11/25/18 07:00 11/25/18 11:13 Kwame Curry 36,000 Units Capsule PO 2 cap TIDAC IPERO Administration Pantoprazole Sodium 20 mg 11/25/18 10:00 11/25/18 11:12 Protonix - PO 20 mg DAILY PIERO Administration Ropinirole HCl 0.25 mg 11/25/18 10:00 Requip - PO DAILY PIERO Tamsulosin HCl 0.4 mg 11/24/18 22:00 11/25/18 11:12 Flomax - PO 0.4 mg BID PIERO Administration Last Vital Signs Temp Pulse Resp BP Pulse Ox 97.8 F 52 L 18 137/73 95 11/25/18 06:00 11/25/18 06:00 11/25/18 06:00 11/25/18 06:00 11/24/18 22:00 General NAD, speech is slow CV S1 S2 RRR no murmur/rub/gallop Lungs CTA B/L no wheezing/rales/rhonchi Abdomen soft +suprapubic tenderness no rebound or guarding Extremities no pedal edema CBCD WBC 5.4 K/mm3 (4.0-10.0) 11/25/18 06:00 RBC 4.08 M/mm3 (4.00-5.60) 11/25/18 06:00 Hgb 12.2 GM/dL (11.7-16.9) 11/25/18 06:00 Hct 36.8 % (35.4-49) 11/25/18 06:00 MCV 90.1 fl (80-96) 11/25/18 06:00 MCHC 33.1 g/dl (32.0-35.9) 11/25/18 06:00 RDW 18.6 % (11.9-15.9) H 11/25/18 06:00 Plt Count 79 K/MM3 (134-434) L D 11/25/18 06:00 MPV 9.5 fl (7.5-11.1) 11/25/18 06:00 CMP Sodium 141 mmol/L (136-145) 11/25/18 06:00 Potassium 4.4 mmol/L (3.5-5.1) 11/25/18 06:00 Chloride 108 mmol/L (98-107) H 11/25/18 06:00 Carbon Dioxide 27 mmol/L (21-32) 11/25/18 06:00 Anion Gap 7 MMOL/L (8-16) L 11/25/18 06:00 BUN 44 mg/dL (7-18) H 11/25/18 06:00 Creatinine 2.9 mg/dL (0.55-1.3) H 11/25/18 06:00 Creat Clearance w eGFR 22.02 (>60) 11/25/18 06:00 Calcium 8.8 mg/dL (8.5-10.1) 11/25/18 06:00 Total Bilirubin 0.5 mg/dL (0.2-1) 11/25/18 06:00 AST 38 U/L (15-37) H 11/25/18 06:00 ALT 28 U/L (13-61) 11/25/18 06:00 Alkaline Phosphatase 186 U/L (45-117) H 11/25/18 06:00 Total Protein 7.7 g/dl (6.4-8.2) 11/25/18 06:00 Albumin 3.0 g/dl (3.4-5.0) L 11/25/18 06:00 ASSESSMENT AND PLAN: 63yo M with PMH ETOH cirrhosis, HCV (unclear if treated), seizure, pancreatic insufficiency, COPD, CKD, HTN, variceal bleeding s/p banding and remote cocaine dependence presented to the ED with difficulty ambulating and found to have acute renal failure 1. Acute on CKD- liekly due to medications vs NSAID vs UTI. making good urine. modest improvement in renal function. will cont to monitor. CPK pending although low suspicion given UA. will hold diuretics, no signs of volume overload. nephro on board 2. Difficulty ambulating- due to multi-level disc disease. MRI reviewed.spoek with neurosurg. will need to have trial of injections and PT. no indication for surgery at this time. will f/u as outpatient. avoid NSAIDS 3. +UTI- on ceftriaxone day 2. f/u cx 4. Hyperkalemia- due to SILVANA. resolved 5. thrombocytopenia- due to cirrhosis. no signs of bleeding. above baseline 6. ETOH cirrhosis- appears to be well compensated. GI outpatient management 7. seizure- no reported seizure activity. cont antieleptics 8. Pancreatic insuff- cont pancrealipase 9. COPD- no signs of exacerbation. not on steroids 10. HTN- controlled 11. Variceal bleeding s/p banding- 12. DVT ppx- hep sq Visit type - Emergency Visit Emergency Visit: Yes ED Registration Date: 11/24/18 Care time: The patient presented to the Emergency Department on the above date and was hospitalized for further evaluation of their emergent condition. - New Patient This patient is new to me today: No - Critical Care Critical Care patient: No - Discharge Referral Referred to [facility] Med [facility] No
[2018-11-25] MEDS: BUDESONIDE/FORMETEROL FUMARATE 160/4.5 mcg INHALER IH SCH ×2 (12:25→21:50)
[2018-11-25 15:10] LABS: PLATELET ESTIMATE DECREASED
--- NOTE | 2018-11-25 15:55 | PN ---
Progress Note, Physician History of Present Illness: Pt seen and examined at bedside. He is more awake and alert today. - Current Medication List Current Medications: Active Medications Albuterol Sulfate (Ventolin 0.083% Nebulizer Soln -) 1 amp NEB Q4H PRN PRN Reason: SHORT OF BREATH/WHEEZING Budesonide/Formoterol Fumarate (Symbicort 160/4.5mcg -) 1 puff IH BID [facility] Last Admin: 11/25/18 12:25 Dose: 1 puff Folic Acid (Folic Acid -) 1 mg PO DAILY [facility] Last Admin: 11/25/18 11:12 Dose: 1 mg Gabapentin (Neurontin -) 300 mg PO BID [facility] Last Admin: 11/25/18 11:12 Dose: 300 mg Heparin Sodium (Porcine) (Heparin -) 5,000 unit SQ TID [facility] Last Admin: 11/25/18 13:51 Dose: 5,000 unit Ceftriaxone Sodium 2 gm/ (Dextrose) 100 mls @ 200 mls/hr IVPB DAILY [facility] Last Admin: 11/25/18 11:12 Dose: 200 mls/hr Lactulose (Cephulac (Oral Use)) 20 gm PO TID [facility] Last Admin: 11/25/18 13:51 Dose: 20 gm Levetiracetam (Keppra -) 500 mg PO BID [facility] Last Admin: 11/25/18 11:12 Dose: 500 mg Melatonin (Melatonin) 5 mg PO HS PRN PRN Reason: INSOMNIA Last Admin: 11/24/18 22:15 Dose: 5 mg Oxybutynin Chloride (Ditropan -) 10 mg PO DAILY [facility] Last Admin: 11/25/18 11:11 Dose: 10 mg Pancrelipase (Creon Dr 36,000 Units Capsule) 2 cap PO TIDAC [facility] Last Admin: 11/25/18 11:13 Dose: 2 cap Pantoprazole Sodium (Protonix -) 20 mg PO DAILY [facility] Last Admin: 11/25/18 11:12 Dose: 20 mg Ropinirole HCl (Requip -) 0.25 mg PO HS [facility] Tamsulosin HCl (Flomax -) 0.4 mg PO BID [facility] Last Admin: 11/25/18 11:12 Dose: 0.4 mg - Objective Vital Signs: Vital Signs Temperature 97.3 F L 11/25/18 15:29 Pulse Rate 90 11/25/18 15:29 Respiratory Rate 18 11/25/18 15:29 Blood Pressure 152/73 11/25/18 15:29 O2 Sat by Pulse Oximetry (%) 95 11/24/18 22:00 Constitutional: Yes: Calm Eyes: Yes: Conjunctiva Clear HENT: Yes: Atraumatic Neck: Yes: Supple Cardiovascular: Yes: S1, S2 Respiratory: Yes: CTA Bilaterally Gastrointestinal: Yes: Soft Genitourinary: Yes: WNL Musculoskeletal: Yes: WNL Edema: No Neurological: Yes: Oriented Psychiatric: Yes: Oriented Labs: CBC, BMP 11/25/18 06:00 11/25/18 06:00 Assessment/Plan Current Medications Generic Name Dose Route Start Last Admin Trade Name Freq PRN Reason Stop Dose Admin Albuterol Sulfate 1 amp 11/24/18 16:41 Ventolin 0.083% Nebulizer Soln - NEB Q4H PRN SHORT OF BREATH/WHEEZING Budesonide/Formoterol Fumarate 1 puff 11/24/18 22:00 11/25/18 12:25 Symbicort 160/4.5mcg - IH 1 puff BID [facility] Administration Folic Acid 1 mg 11/25/18 10:00 11/25/18 11:12 Folic Acid - PO 1 mg DAILY [facility] Administration Gabapentin 300 mg 11/24/18 22:00 11/25/18 11:12 Neurontin - PO 300 mg BID [facility] Administration Heparin Sodium (Porcine) 5,000 unit 11/24/18 22:00 11/25/18 13:51 Heparin - SQ 5,000 unit TID [facility] Administration Ceftriaxone Sodium 2 gm/ 100 mls @ 200 mls/hr 11/24/18 17:45 11/25/18 11:12 Dextrose IVPB 200 mls/hr DAILY [facility] Administration Lactulose 20 gm 11/24/18 22:00 11/25/18 13:51 Cephulac (Oral Use) PO 20 gm TID [facility] Administration Levetiracetam 500 mg 11/24/18 22:00 11/25/18 11:12 Keppra - PO 500 mg BID [facility] Administration Melatonin 5 mg 11/24/18 16:41 11/24/18 22:15 Melatonin PO 5 mg HS PRN Administration INSOMNIA Oxybutynin Chloride 10 mg 11/25/18 10:00 11/25/18 11:11 Ditropan - PO 10 mg DAILY [facility] Administration Pancrelipase 2 cap 11/25/18 07:00 11/25/18 11:13 Credillan Curry 36,000 Units Capsule PO 2 cap TIDAC [facility] Administration Pantoprazole Sodium 20 mg 11/25/18 10:00 11/25/18 11:12 Protonix - PO 20 mg DAILY [facility] Administration Ropinirole HCl 0.25 mg 11/25/18 11:53 Requip - PO HS [facility] Tamsulosin HCl 0.4 mg 11/24/18 22:00 11/25/18 11:12 Flomax - PO 0.4 mg BID [facility] Administration Laboratory Tests 11/24/18 11/24/18 13:24 17:32 Urine Protein Negative Urine Blood Negative Ur Random Sodium 33 L Impression 1. CKD 2. Hep C 3. liver cirrhosis 4. ascites 5. epilepsy 6. substance abuse 7. hepatic encephalopathy 8. SILVANA 9. UTI Plan - potassium improved - cont to monitor renal function - check cpk - hold diuretics for now - repeat labs in am - will follow - follow urine cultures Dr Williamson
[2018-11-25] MEDS: MELATONIN 5 MG TABLETS PO PRN (21:49)
[2018-11-25] MEDS: rOPINIRole HCL 0.25 MG TABLET PO SCH (21:49)
[2018-11-26] MEDS: HEPARIN NA (PORCINE) 5,000 UNITS/ML 1ML VIAL SQ SCH ×3 (06:26→22:08)
[2018-11-26] MEDS: LACTULOSE 20 GM/30 ML UDC (FOR ORAL USE ONLY) PO SCH ×3 (06:43→22:08)
[2018-11-26] MEDS: LIPASE/PROTEASE/AMYLASE 36,000 UNIT CAPSULE PO SCH ×3 (06:43→17:39)
--- NOTE | 2018-11-26 08:38 | PN ---
Physical Exam: SUBJECTIVE: Patient seen and examined at bedside this morning. Patient does not endorse acute complaints. OBJECTIVE: Vital Signs Period Temp Pulse Resp BP Sys/Eisenberg Pulse Ox Last 24 Hr 97.3 F-97.8 F 46-90 18-20 137-152/65-78 95-95 GENERAL: The patient is awake, alert, and fully oriented, in no acute distress. HEAD: Normocephalic, atraumatic EYES: PERRL, extraocular movements intact, sclera anicteric, conjunctiva clear. ENT: Oropharynx clear without exudates, moist mucous membranes. NECK: Supple without lymphadenopathy LUNGS: Clear to auscultation bilaterally, no wheezes, no crackles. No accessory muscle use. HEART: Regular rate and rhythm, S1, S2 without murmur, rub or gallop. ABDOMEN: Soft, nontender x4 quadrants, nondistended. Normoactive bowel sounds. No guarding, no rebound tenderness. EXTREMITIES: 2+ radial, dorsalis pedis pulses bilaterally, warm, well-perfused. No lower extremity edema bilaterally. NEUROLOGICAL: Cranial nerves II through XII grossly intact. Normal speech. PSYCH: Normal mood, normal affect upon my encounter. SKIN: Warm, dry Laboratory Results - last 24 hr 11/25/18 11/25/18 06:00 06:00 Total Counted 100 Neutrophils % (Manual) 62.0 Lymphocytes % (Manual) 14.0 D Monocytes % (Manual) 17 H Eosinophils % (Manual) 7.0 H D Platelet Estimate Decreased Platelet Comment No clumping noted Sodium 141 Potassium 4.4 Chloride 108 H Carbon Dioxide 27 Anion Gap 7 L BUN 44 H Creatinine 2.9 H Creat Clearance w eGFR 22.02 Random Glucose 104 Calcium 8.8 Total Bilirubin 0.5 AST 38 H ALT 28 Alkaline Phosphatase 186 H Creatine Kinase 96 Total Protein 7.7 Albumin 3.0 L Active Medications Generic Name Dose Route Start Last Admin Trade Name Freq PRN Reason Stop Dose Admin Albuterol Sulfate 1 amp 11/24/18 16:41 Ventolin 0.083% Nebulizer Soln - NEB Q4H PRN SHORT OF BREATH/WHEEZING Budesonide/Formoterol Fumarate 1 puff 11/24/18 22:00 11/25/18 21:50 Symbicort 160/4.5mcg - IH 1 puff BID [facility] Administration Folic Acid 1 mg 11/25/18 10:00 11/25/18 11:12 Folic Acid - PO 1 mg DAILY [facility] Administration Gabapentin 300 mg 11/24/18 22:00 11/25/18 21:49 Neurontin - PO 300 mg BID [facility] Administration Heparin Sodium (Porcine) 5,000 unit 11/24/18 22:00 11/26/18 06:26 Heparin - SQ Not Given TID [facility] Ceftriaxone Sodium 2 gm/ 100 mls @ 200 mls/hr 11/24/18 17:45 11/25/18 11:12 Dextrose IVPB 200 mls/hr DAILY [facility] Administration Lactulose 20 gm 11/24/18 22:00 11/26/18 06:43 Cephulac (Oral Use) PO 20 gm TID [facility] Administration Levetiracetam 500 mg 11/24/18 22:00 11/25/18 21:49 Keppra - PO 500 mg BID [facility] Administration Melatonin 5 mg 11/24/18 16:41 11/25/18 21:49 Melatonin PO 5 mg HS PRN Administration INSOMNIA Oxybutynin Chloride 10 mg 11/25/18 10:00 11/25/18 11:11 Ditropan - PO 10 mg DAILY [facility] Administration Pancrelipase 2 cap 11/25/18 07:00 11/26/18 06:43 Credillan Curry 36,000 Units Capsule PO 2 cap TIDAC [facility] Administration Pantoprazole Sodium 20 mg 11/25/18 10:00 11/25/18 11:12 Protonix - PO 20 mg DAILY [facility] Administration Ropinirole HCl 0.25 mg 11/25/18 11:53 11/25/18 21:49 Requip - PO 0.25 mg HS [facility] Administration Tamsulosin HCl 0.4 mg 11/24/18 22:00 11/25/18 21:49 Flomax - PO 0.4 mg BID [facility] Administration ASSESSMENT/PLAN: Patient is a 63 year old male with history of cirrhosis (secondary to alcohol abuse), esophageal varices (s/p band), hepatitis C virus, pancreatic insufficiency, seizures, COPD, CKD, hypertension presents with difficulty ambulating. Multi-level spinal disease -Recent spinal MRI shows spondylosis, ostephytes, and disc bulges. -Neurosurgery evaluation (Dr. Chang) appreciated. No acute surgical intervention at this time -Physical therapy evaluation Acute on chronic kidney disease -Patient endorses taking NSAIDs- likely ATN -Cr improving to 2.1 -1 liter IV fluid bolus today -Nephrology consult (Dr. Williamson) appreciated Acute complicated urinary tract infection -Ceftriaxone 2 gram IV daily (day #3) -Follow urine cultures BPH -Tamsulosin 0.4mg PO BID Overactive bladder -Oxybutynin 10mg PO daily History of pancreatic insufficiency -Continue Creon 2 capsules PO TID History of seizures -No recent reported seizure activity -Keppra 500mg PO BID History of hepatic cirrhosis -Patient endorses significant alcohol conumption history -Lactulose 20 grams PO TID FEN -1 liter IV normal saline bolus -Follow CMP -Renal diet Prophylaxis -Heparin 5000u subq TID Visit type - Emergency Visit Emergency Visit: Yes ED Registration Date: 11/24/18 Care time: The patient presented to the Emergency Department on the above date and was hospitalized for further evaluation of their emergent condition. - New Patient This patient is new to me today: Yes Date on this admission: 11/26/18 - Critical Care Critical Care patient: No - Discharge Referral Referred to [facility] Med P.C.: No
[2018-11-26 08:51] LABS: ALBUMIN 2.8 g/dl (3.4-5.0); ALK PHOS 166 U/L (45-117); ANION GAP 9 MMOL/L (8-16); BILIRUBIN,TOTAL 0.6 mg/dL (0.2-1); BLOOD UREA NITROGEN 33 mg/dL (7-18); CALCIUM 8.9 mg/dL (8.5-10.1); CHLORIDE 112 mmol/L (98-107); CO2 23 mmol/L (21-32); CREATININE 2.1 mg/dL (0.55-1.3); GLUCOSE,RANDOM 97 mg/dL (74-106); POTASSIUM 4.2 mmol/L (3.5-5.1); SGOT/AST 35 U/L (15-37); SGPT/ALT 27 U/L (13-61); SODIUM 143 mmol/L (136-145); TOT PROT 7.5 g/dl (6.4-8.2)
[2018-11-26] MEDS ORDERED: DEXTROSE 5%-WATER 100 ML IVPB ONE (10:42)
[2018-11-26] MEDS: FOLIC ACID 1 MG TABLET (FP) PO SCH (10:54)
[2018-11-26] MEDS: TAMSULOSIN HCL 0.4 MG CAP PO SCH ×2 (10:55→22:08)
[2018-11-26] MEDS: PANTOPRAZOLE 20 MG TABLET (FP) PO SCH (10:55)
[2018-11-26] MEDS: OXYBUTYNIN CHLORIDE 5 MG TABLET PO SCH (10:55)
[2018-11-26] MEDS: GABAPENTIN 300 MG CAPSULE (FP) PO SCH ×2 (10:55→22:08)
[2018-11-26] MEDS: levETIRAcetam 500 MG TABLET (FP) PO SCH ×2 (10:55→22:08)
[2018-11-26] MEDS: CEFTRIAXONE 2 GM in DEXTROSE 5%-WATER 100 ML IVPB SCH (10:56)
[2018-11-26] MEDS: BUDESONIDE/FORMETEROL FUMARATE 160/4.5 mcg INHALER IH SCH ×2 (10:59→22:09)
[2018-11-26] MEDS ORDERED: SODIUM CHLORIDE 1,000 ML IV STA (11:03)
--- NOTE | 2018-11-26 12:57 | PN ---
Teaching Attending Note Name of Resident: Jack Carey ATTENDING PHYSICIAN STATEMENT I saw and evaluated the patient. I reviewed the resident's note and discussed the case with the resident. I agree with the resident's findings and plan as documented. SUBJECTIVE: OBJECTIVE: s1 and s2 rrr lungs CTA good air entry cachetic due to liver cirrhosis ASSESSMENT AND PLAN: This is a 63 year old male with history of cirrhosis (secondary to alcohol abuse ), esophageal varices (s/p band), hepatitis C virus, pancreatic insufficiency, seizures, COPD, CKD, hypertension presents with difficulty ambulating 2/2 chronic back pain. Multi-level spinal disease -Recent spinal MRI shows spondylosis, ostephytes, and disc bulges. -Neurosurgery evaluation (Dr. Chang), without any acute surgical intervention at this time -Physical therapy evaluation - pain management - avoid NSAID's due to SILVANA Acute on chronic kidney disease -Patient endorses taking NSAIDs- likely ATN -Cr improving to 2.1 -1 liter IV fluid bolus today Acute complicated urinary tract infection -Ceftriaxone 2 gram IV daily -Follow urine cultures BPH - tamsulosin 0.4mg PO BID -Oxybutynin 10mg PO daily History of pancreatic insufficiency -Continue Creon capsules 2PO TID History of seizures -No recent reported seizure activity -Keppra 500mg PO BID History of hepatic cirrhosis -Patient endorses significant alcohol conumption history -Lactulose 20 grams PO TID Problem List - Problems (1) Moderate protein-energy malnutrition Code(s): E44.0 - MODERATE PROTEIN-CALORIE MALNUTRITION (2) ARF (acute renal failure) Code(s): N17.9 - ACUTE KIDNEY FAILURE, UNSPECIFIED Qualifiers: Acute renal failure type: unspecified Qualified Code(s): N17.9 - Acute kidney failure, unspecified (3) Ascites of liver Code(s): R18.8 - OTHER ASCITES (4) UTI (urinary tract infection) due to Enterococcus Code(s): N39.0 - URINARY TRACT INFECTION, SITE NOT SPECIFIED; B95.2 - ENTEROCOCCUS THE CAUSE OF DISEASES CLASSIFIED ELSEWHERE (5) Esophageal varices determined by endoscopy Code(s): I85.00 - ESOPHAGEAL VARICES WITHOUT BLEEDING (6) Hepatitis C Code(s): B19.20 - UNSPECIFIED VIRAL HEPATITIS C WITHOUT HEPATIC COMA (7) Hypertension Code(s): I10 - ESSENTIAL (PRIMARY) HYPERTENSION (8) Seizures Code(s): R56.9 - UNSPECIFIED CONVULSIONS (9) Substance abuse Code(s): F19.10 - OTHER PSYCHOACTIVE SUBSTANCE ABUSE, UNCOMPLICATED (10) Hepatic encephalopathy Code(s): K72.90 - HEPATIC FAILURE, UNSPECIFIED WITHOUT COMA
--- NOTE | 2018-11-26 17:11 | PN ---
Progress Note (short form) - Note Progress Note: Patient sitting comfortably in chair, talking on phone. No acute distress or difficulties.
--- NOTE | 2018-11-26 18:51 | PN ---
Progress Note, Physician History of Present Illness: Pt seen and examined at bedside. He is awake and alert. He denies shortness of breath. - Current Medication List Current Medications: Active Medications Albuterol Sulfate (Ventolin 0.083% Nebulizer Soln -) 1 amp NEB Q4H PRN PRN Reason: SHORT OF BREATH/WHEEZING Budesonide/Formoterol Fumarate (Symbicort 160/4.5mcg -) 1 puff IH BID [facility] Last Admin: 11/26/18 10:59 Dose: 1 puff Folic Acid (Folic Acid -) 1 mg PO DAILY [facility] Last Admin: 11/26/18 10:54 Dose: 1 mg Gabapentin (Neurontin -) 300 mg PO BID [facility] Last Admin: 11/26/18 10:55 Dose: 300 mg Heparin Sodium (Porcine) (Heparin -) 5,000 unit SQ TID [facility] Last Admin: 11/26/18 15:29 Dose: 5,000 unit Ceftriaxone Sodium 2 gm/ (Dextrose) 100 mls @ 200 mls/hr IVPB DAILY [facility] Last Admin: 11/26/18 10:56 Dose: 200 mls/hr Lactulose (Cephulac (Oral Use)) 20 gm PO TID [facility] Last Admin: 11/26/18 15:28 Dose: Not Given Levetiracetam (Keppra -) 500 mg PO BID [facility] Last Admin: 11/26/18 10:55 Dose: 500 mg Melatonin (Melatonin) 5 mg PO HS PRN PRN Reason: INSOMNIA Last Admin: 11/25/18 21:49 Dose: 5 mg Oxybutynin Chloride (Ditropan -) 10 mg PO DAILY [facility] Last Admin: 11/26/18 10:55 Dose: 10 mg Pancrelipase (Creon Dr 36,000 Units Capsule) 2 cap PO TIDAC [facility] Last Admin: 11/26/18 17:39 Dose: 2 cap Pantoprazole Sodium (Protonix -) 20 mg PO DAILY [facility] Last Admin: 11/26/18 10:55 Dose: 20 mg Ropinirole HCl (Requip -) 0.25 mg PO HS [facility] Last Admin: 11/25/18 21:49 Dose: 0.25 mg Tamsulosin HCl (Flomax -) 0.4 mg PO BID [facility] Last Admin: 11/26/18 10:55 Dose: 0.4 mg - Objective Vital Signs: Vital Signs Temperature 97.9 F 11/26/18 15:40 Pulse Rate 65 11/26/18 15:40 Respiratory Rate 18 11/26/18 15:40 Blood Pressure 140/68 11/26/18 15:40 O2 Sat by Pulse Oximetry (%) 95 11/26/18 09:00 Constitutional: Yes: Calm Eyes: Yes: Conjunctiva Clear HENT: Yes: Atraumatic Neck: Yes: Supple Cardiovascular: Yes: S1, S2 Respiratory: Yes: CTA Bilaterally Gastrointestinal: Yes: Soft Genitourinary: Yes: WNL Musculoskeletal: Yes: Back Pain Edema: No Neurological: Yes: Oriented Psychiatric: Yes: Oriented Labs: CBC, BMP 11/25/18 06:00 11/26/18 07:28 Assessment/Plan Current Medications Generic Name Dose Route Start Last Admin Trade Name Freq PRN Reason Stop Dose Admin Albuterol Sulfate 1 amp 11/24/18 16:41 Ventolin 0.083% Nebulizer Soln - NEB Q4H PRN SHORT OF BREATH/WHEEZING Budesonide/Formoterol Fumarate 1 puff 11/24/18 22:00 11/26/18 10:59 Symbicort 160/4.5mcg - IH 1 puff BID [facility] Administration Folic Acid 1 mg 11/25/18 10:00 11/26/18 10:54 Folic Acid - PO 1 mg DAILY [facility] Administration Gabapentin 300 mg 11/24/18 22:00 11/26/18 10:55 Neurontin - PO 300 mg BID [facility] Administration Heparin Sodium (Porcine) 5,000 unit 11/24/18 22:00 11/26/18 15:29 Heparin - SQ 5,000 unit TID [facility] Administration Ceftriaxone Sodium 2 gm/ 100 mls @ 200 mls/hr 11/24/18 17:45 11/26/18 10:56 Dextrose IVPB 200 mls/hr DAILY [facility] Administration Lactulose 20 gm 11/24/18 22:00 11/26/18 15:28 Cephulac (Oral Use) PO Not Given TID [facility] Levetiracetam 500 mg 11/24/18 22:00 11/26/18 10:55 Keppra - PO 500 mg BID [facility] Administration Melatonin 5 mg 11/24/18 16:41 11/25/18 21:49 Melatonin PO 5 mg HS PRN Administration INSOMNIA Oxybutynin Chloride 10 mg 11/25/18 10:00 11/26/18 10:55 Ditropan - PO 10 mg DAILY [facility] Administration Pancrelipase 2 cap 11/25/18 07:00 11/26/18 17:39 Creon 36,000 Units Capsule PO 2 cap TIDAC [facility] Administration Pantoprazole Sodium 20 mg 11/25/18 10:00 11/26/18 10:55 Protonix - PO 20 mg DAILY [facility] Administration Ropinirole HCl 0.25 mg 11/25/18 11:53 11/25/18 21:49 Requip - PO 0.25 mg HS [facility] Administration Tamsulosin HCl 0.4 mg 11/24/18 22:00 11/26/18 10:55 Flomax - PO 0.4 mg BID [facility] Administration Impression 1. CKD 2. Hep C 3. liver cirrhosis 4. ascites 5. epilepsy 6. substance abuse 7. hepatic encephalopathy 8. SILVANA 9. UTI Plan - renal function is improving - potassium is improved - will restart diuretics in next 24 to 48 hrs - repeat labs in am - will follow - follow urine cultures Dr Williamson
[2018-11-26] MEDS: rOPINIRole HCL 0.25 MG TABLET PO SCH (22:08)
[2018-11-26] MEDS: MELATONIN 5 MG TABLETS PO PRN (22:17)
[2018-11-27] MEDS: LACTULOSE 20 GM/30 ML UDC (FOR ORAL USE ONLY) PO SCH ×2 (06:35→14:06)
[2018-11-27] MEDS: LIPASE/PROTEASE/AMYLASE 36,000 UNIT CAPSULE PO SCH ×2 (06:35→12:47)
[2018-11-27] MEDS: HEPARIN NA (PORCINE) 5,000 UNITS/ML 1ML VIAL SQ SCH (06:35)
[2018-11-27 07:51] LABS: HEMATOCRIT 32.8 % (35.4-49); HEMOGLOBIN 10.9 GM/dL (11.7-16.9); MCH 29.9 pg (25.7-33.7); MCHC 33.3 g/dl (32.0-35.9); MEAN CELL VOLUME 89.7 fl (80-96); MEAN PLT VOLUME 9.8 fl (7.5-11.1); PLATELET COUNT 69 K/MM3 (134-434); RBC 3.65 M/mm3 (4.00-5.60); RDW 18.4 % (11.9-15.9); WHITE BLOOD COUNT 5.2 K/mm3 (4.0-10.0)
[2018-11-27 07:57] LABS: ALBUMIN 2.4 g/dl (3.4-5.0); ALK PHOS 147 U/L (45-117); ANION GAP 10 MMOL/L (8-16); BILIRUBIN,TOTAL 0.5 mg/dL (0.2-1); BLOOD UREA NITROGEN 24 mg/dL (7-18); CALCIUM 8.3 mg/dL (8.5-10.1); CHLORIDE 113 mmol/L (98-107); CO2 21 mmol/L (21-32); CREATININE 1.7 mg/dL (0.55-1.3); GLUCOSE,RANDOM 90 mg/dL (74-106); POTASSIUM 4.6 mmol/L (3.5-5.1); SGOT/AST 36 U/L (15-37); SGPT/ALT 27 U/L (13-61); SODIUM 144 mmol/L (136-145); TOT PROT 6.7 g/dl (6.4-8.2)
--- NOTE | 2018-11-27 08:32 | PN ---
Physical Exam: SUBJECTIVE: Patient seen and examined OBJECTIVE: Vital Signs Period Temp Pulse Resp BP Sys/Eisenberg Pulse Ox Last 24 Hr 97.4 F-98.0 F 63-77 18-20 108-145/51-99 95-95 GENERAL: The patient is awake, alert, and fully oriented, in no acute distress. HEAD: Normal with no signs of trauma. EYES: PERRL, extraocular movements intact, sclera anicteric, conjunctiva clear. No ptosis. ENT: Ears normal, nares patent, oropharynx clear without exudates, moist mucous membranes. NECK: Trachea midline, full range of motion, supple. LUNGS: Breath sounds equal, clear to auscultation bilaterally, no wheezes, no crackles, no accessory muscle use. HEART: Regular rate and rhythm, S1, S2 without murmur, rub or gallop. ABDOMEN: Soft, nontender, nondistended, normoactive bowel sounds, no guarding, no rebound, no hepatosplenomegaly, no masses. EXTREMITIES: 2+ pulses, warm, well-perfused, no edema. NEUROLOGICAL: Cranial nerves II through XII grossly intact. Normal speech, gait not observed. PSYCH: Normal mood, normal affect. SKIN: Warm, dry, normal turgor, no rashes or lesions noted Laboratory Results - last 24 hr 11/26/18 11/27/18 11/27/18 07:28 06:30 06:30 WBC 5.2 RBC 3.65 L Hgb 10.9 L Hct 32.8 L MCV 89.7 MCH 29.9 MCHC 33.3 RDW 18.4 H Plt Count 69 L MPV 9.8 Sodium 143 144 Potassium 4.2 4.6 Chloride 112 H 113 H Carbon Dioxide 23 21 Anion Gap 9 10 BUN 33 H 24 H Creatinine 2.1 H 1.7 H Creat Clearance w eGFR 31.96 40.78 Random Glucose 97 90 Calcium 8.9 8.3 L Total Bilirubin 0.6 0.5 AST 35 36 ALT 27 27 Alkaline Phosphatase 166 H 147 H Creatine Kinase 87 Total Protein 7.5 6.7 Albumin 2.8 L 2.4 L Active Medications Generic Name Dose Route Start Last Admin Trade Name Freq PRN Reason Stop Dose Admin Albuterol Sulfate 1 amp 11/24/18 16:41 Ventolin 0.083% Nebulizer Soln - NEB Q4H PRN SHORT OF BREATH/WHEEZING Budesonide/Formoterol Fumarate 1 puff 11/24/18 22:00 11/26/18 22:09 Symbicort 160/4.5mcg - IH 1 puff BID [facility] Administration Folic Acid 1 mg 11/25/18 10:00 11/26/18 10:54 Folic Acid - PO 1 mg DAILY [facility] Administration Gabapentin 300 mg 11/24/18 22:00 11/26/18 22:08 Neurontin - PO 300 mg BID [facility] Administration Heparin Sodium (Porcine) 5,000 unit 11/24/18 22:00 11/27/18 06:35 Heparin - SQ Not Given TID [facility] Ceftriaxone Sodium 2 gm/ 100 mls @ 200 mls/hr 11/24/18 17:45 11/26/18 10:56 Dextrose IVPB 200 mls/hr DAILY [facility] Administration Lactulose 20 gm 11/24/18 22:00 11/27/18 06:35 Cephulac (Oral Use) PO 20 gm TID [facility] Administration Levetiracetam 500 mg 11/24/18 22:00 11/26/18 22:08 Keppra - PO 500 mg BID [facility] Administration Melatonin 5 mg 11/24/18 16:41 11/26/18 22:17 Melatonin PO 5 mg HS PRN Administration INSOMNIA Oxybutynin Chloride 10 mg 11/25/18 10:00 11/26/18 10:55 Ditropan - PO 10 mg DAILY [facility] Administration Pancrelipase 2 cap 11/25/18 07:00 11/27/18 06:[address] 36,000 Units Capsule PO 2 cap TIDAC [facility] Administration Pantoprazole Sodium 20 mg 11/25/18 10:00 11/26/18 10:55 Protonix - PO 20 mg DAILY [facility] Administration Ropinirole HCl 0.25 mg 11/25/18 11:53 11/26/18 22:08 Requip - PO 0.25 mg HS [facility] Administration Tamsulosin HCl 0.4 mg 11/24/18 22:00 11/26/18 22:08 Flomax - PO 0.4 mg BID [facility] Administration ASSESSMENT/PLAN: Patient is a 63 year old male with history of cirrhosis (secondary to alcohol abuse), esophageal varices (s/p band), hepatitis C virus, pancreatic insufficiency, seizures, COPD, CKD, hypertension presents with difficulty ambulating. Multi-level spinal disease -Recent spinal MRI shows spondylosis, ostephytes, and disc bulges. -Neurosurgery evaluation (Dr. Chang) appreciated. No acute surgical intervention at this time -Physical therapy evaluation Acute on chronic kidney disease -Patient endorses taking NSAIDs- likely ATN -Cr improving to 2.1 -1 liter IV fluid bolus today -Nephrology consult (Dr. Williamson) appreciated Acute complicated urinary tract infection -Ceftriaxone 2 gram IV daily (day #3) -Follow urine cultures BPH -Tamsulosin 0.4mg PO BID Overactive bladder -Oxybutynin 10mg PO daily History of pancreatic insufficiency -Continue Creon 2 capsules PO TID History of seizures -No recent reported seizure activity -Keppra 500mg PO BID History of hepatic cirrhosis -Patient endorses significant alcohol conumption history -Lactulose 20 grams PO TID FEN -1 liter IV normal saline bolus -Follow CMP -Renal diet Prophylaxis -Heparin 5000u subq TID
[2018-11-27] MEDS ORDERED: DEXTROSE 5%-WATER 100 ML IVPB ONE (10:35)
[2018-11-27] MEDS: PANTOPRAZOLE 20 MG TABLET (FP) PO SCH (10:39)
[2018-11-27] MEDS: FOLIC ACID 1 MG TABLET (FP) PO SCH (10:39)
[2018-11-27] MEDS: OXYBUTYNIN CHLORIDE 5 MG TABLET PO SCH (10:39)
[2018-11-27] MEDS: GABAPENTIN 300 MG CAPSULE (FP) PO SCH (10:39)
[2018-11-27] MEDS: TAMSULOSIN HCL 0.4 MG CAP PO SCH (10:39)
[2018-11-27] MEDS: levETIRAcetam 500 MG TABLET (FP) PO SCH (10:39)
[2018-11-27] MEDS: BUDESONIDE/FORMETEROL FUMARATE 160/4.5 mcg INHALER IH SCH (10:40)
[2018-11-27] MEDS: CEFTRIAXONE 2 GM in DEXTROSE 5%-WATER 100 ML IVPB SCH (10:49)
[2018-11-27 10:50] VITALS: BP 140/78; PULSE 70; TEMP 98.2
[2018-11-27] MEDS ORDERED: PT OWN MED DRAWER 7, Y5N ONE (12:46)
--- NOTE | 2018-11-27 13:26 | DS ---
Physical Exam: SUBJECTIVE: Patient seen and examined at bedside- no acute events overnight patient states that he is feeling better; he denies any urinary symptoms; no CP/ SOB/N.v OBJECTIVE: Vital Signs Period Temp Pulse Resp BP Sys/Eisenberg Pulse Ox Last 24 Hr 97.4 F-98.2 F 63-77 18-20 108-145/51-78 95 PHYSICAL EXAM GENERAL: The patient is awake, alert, and fully oriented, in no acute distress.. EYES: PEERLA: EOMI; no scleral icterus. NECK: no JVD; no lymphadenopathy LUNGS: CTA B/L; no rales, rhnchi or wheezing HEART: Regular rate and rhythm, S1, S2 without murmur, rub or gallop. ABDOMEN: Soft, nontender, nondistended, normoactive bowel sounds, no guarding, no rebound, no hepatosplenomegaly, no masses. EXTREMITIES: 2+ pulses, warm, well-perfused, no edema. PSYCH: Normal mood, normal affect. SKIN: Warm, dry, normal turgor, no rashes or lesions noted. LABS Laboratory Results - last 24 hr 11/27/18 11/27/18 06:30 06:30 WBC 5.2 RBC 3.65 L Hgb 10.9 L Hct 32.8 L MCV 89.7 MCH 29.9 MCHC 33.3 RDW 18.4 H Plt Count 69 L MPV 9.8 Sodium 144 Potassium 4.6 Chloride 113 H Carbon Dioxide 21 Anion Gap 10 BUN 24 H Creatinine 1.7 H Creat Clearance w eGFR 40.78 Random Glucose 90 Calcium 8.3 L Total Bilirubin 0.5 AST 36 ALT 27 Alkaline Phosphatase 147 H Total Protein 6.7 Albumin 2.4 L HOSPITAL COURSE: Date of Admission:11/24/18 This is a 63 yo M with PMH of CKD, renal calculi, HCV cirrhosis (ascites, esophageal banding), known liver mass (beign w/u for possible malignancy), pancreatic insufficiency, ETOH/cocaine/heroin abuse, COPD, RLS, chronic back pain with multiple disc herniation to LS spine on recent MRI, who presents due to difficulty walking since yesterday. incidentally on labs patient found to have creat 3 up from 1.7 09/2018. Patient is a poor historian. He reports taking large amount of ibuprofen for back and leg pain over the past several weeks. reports occasional dysuria. denies f/c, hematuria, polyiria. He is on gabapentin (recentlys tarted and ambulates with walker. Denies LE weakness, sensory changes, saddle anesthesia or bowel or bladder incontinence. No trauma. Patient had a renal ultrasound done which showed no evidence of stones or obstruction. patient was also found to have a UTI and was started on ceftriaxone. he was hydrated and his Cr improved. He was also seen by neurosurgery who suggested he get an MRI as an outpatient but that no surgical intervention was necessary. His Cr improved with hydration and he was discharged home on another 3 days of antibiotics in addition to renal and neurosurgery follow up. patient will need to continue his physical therapy on the outpatient setting at his [facility] center Date of Discharge: 11/27/18 Minutes to complete discharge: 35 Discharge Summary Reason For Visit: ACUTE RENAL FAILURE Current Active Problems ARF (acute renal failure) (Acute) Moderate protein-energy malnutrition (Acute) Condition: Good - Instructions Diet, Activity, Other Instructions: You came to the hospital with trouble walking in addition were found to have an acute kidney injury. We did an ultrasound of your kidneys which showed no evidence of any stones or obstruction , we hydrated you and your kidney numbers improved. We also had a neurosurgeon come to evaluate you for your back pain and he suggested you get an MRI as an outpatient and to see him upon discharged Please resume all of your home medications in addition: for your urinary tract infection, please take the antibiotic Ceftin 250mg twice a day for three days please continue taking Lasxi 40mg daily starting tomorrow Please DO NOT take Aldactone until you see Dr. Williamson Please follow up with your primary care physician within one week Please follow up with the neurosurgeon, Dr. Chang within one week Please follow up with Dr. Williamson within one week You will be resuming your physical therapy upon discharge if you begin to experience any chest pains, shortness of breath nausea/vomiting please return to the emergency room immediately Referrals: Keven Chang MD, FAANS [Staff Physician] - 1 Week Bismark Williamson MD [Staff Physician] - 1 Week Disposition: HOME - Home Medications Comprehensive Discharge Medication List: Ambulatory Orders Folic Acid 1 mg PO DAILY 11/29/16 levETIRAcetam [Keppra -] 500 mg PO BID tablet 12/06/16 Oxybutynin Chloride [Oxybutynin Chloride ER] 10 mg PO DAILY 11/16/17 Ropinirole HCl [Requip] 0.25 mg PO DAILY 11/16/17 Tamsulosin HCl [Flomax -] 0.4 mg PO BID 11/16/17 Spironolactone [Aldactone -] 50 mg PO DAILY #30 tablet 02/03/18 Furosemide [Lasix] 40 mg PO DAILY #30 tablet 02/07/18 Multivitamin with Iron [Multivitamins with Iron] 1 each PO DAILY 04/27/18 Pantoprazole Sodium [Protonix -] 20 mg PO DAILY 04/27/18 Melatonin 5 mg PO HS PRN tab 04/28/18 Budesonide/Formeterol Fumarate [SYMBICORT 160/4.5mcg -] 1 inh PO BID 06/20/18 Lactulose 20 gm PO TID 06/20/18 Lipase/Protease/Amylase [Creon Dr 36,000 Units Capsule] 36,000 unit PO DAILY Xalatan 0.005% Eye Drops - 1 drop OU DAILY 06/20/18 Albuterol 0.083% Nebulizer Belen [Ventolin 0.083% Nebulizer Soln -] 1 amp IH Q4H PRN 11/24/18 Gabapentin 300 mg PO BID 11/24/18 Problem List - Problems (1) ARF (acute renal failure) Code(s): N17.9 - ACUTE KIDNEY FAILURE, UNSPECIFIED Qualifiers: Acute renal failure type: unspecified Qualified Code(s): N17.9 - Acute kidney failure, unspecified (2) UTI (urinary tract infection) due to Enterococcus Code(s): N39.0 - URINARY TRACT INFECTION, SITE NOT SPECIFIED; B95.2 - ENTEROCOCCUS THE CAUSE OF DISEASES CLASSIFIED ELSEWHERE This patient is new to me today: Yes Date on this admission: 11/27/18 Emergency Visit: Yes ED Registration Date: 11/24/18 Care time: The patient presented to the Emergency Department on the above date and was hospitalized for further evaluation of their emergent condition. Critical Care patient: No - Discharge Referral Referred to [facility] Med P.C.: No
--- NOTE | 2018-11-27 14:07 | PN ---
Progress Note, Physician History of Present Illness: Pt seen and examined at bedside. He is awake and alert. He denies shortness of breath. - Current Medication List Current Medications: Active Medications Albuterol Sulfate (Ventolin 0.083% Nebulizer Soln -) 1 amp NEB Q4H PRN PRN Reason: SHORT OF BREATH/WHEEZING Budesonide/Formoterol Fumarate (Symbicort 160/4.5mcg -) 1 puff IH BID [facility] Last Admin: 11/27/18 10:40 Dose: 1 puff Folic Acid (Folic Acid -) 1 mg PO DAILY [facility] Last Admin: 11/27/18 10:39 Dose: 1 mg Gabapentin (Neurontin -) 300 mg PO BID [facility] Last Admin: 11/27/18 10:39 Dose: 300 mg Ceftriaxone Sodium 2 gm/ (Dextrose) 100 mls @ 200 mls/hr IVPB DAILY [facility] Last Admin: 11/27/18 10:49 Dose: Not Given Lactulose (Cephulac (Oral Use)) 20 gm PO TID [facility] Last Admin: 11/27/18 06:35 Dose: 20 gm Levetiracetam (Keppra -) 500 mg PO BID [facility] Last Admin: 11/27/18 10:39 Dose: 500 mg Melatonin (Melatonin) 5 mg PO HS PRN PRN Reason: INSOMNIA Last Admin: 11/26/18 22:17 Dose: 5 mg Oxybutynin Chloride (Ditropan -) 10 mg PO DAILY [facility] Last Admin: 11/27/18 10:39 Dose: 10 mg Pancrelipase (Creon Dr 36,000 Units Capsule) 2 cap PO TIDAC [facility] Last Admin: 11/27/18 12:47 Dose: 2 cap Pantoprazole Sodium (Protonix -) 20 mg PO DAILY [facility] Last Admin: 11/27/18 10:39 Dose: 20 mg Ropinirole HCl (Requip -) 0.25 mg PO HS [facility] Last Admin: 11/26/18 22:08 Dose: 0.25 mg Tamsulosin HCl (Flomax -) 0.4 mg PO BID [facility] Last Admin: 11/27/18 10:39 Dose: 0.4 mg - Objective Vital Signs: Vital Signs Temperature 98.2 F 11/27/18 09:49 Pulse Rate 70 11/27/18 09:49 Respiratory Rate 20 11/27/18 09:49 Blood Pressure 140/78 11/27/18 09:49 O2 Sat by Pulse Oximetry (%) 95 11/26/18 21:00 Constitutional: Yes: Calm Eyes: Yes: Conjunctiva Clear HENT: Yes: Atraumatic Neck: Yes: Supple Cardiovascular: Yes: S1, S2 Respiratory: Yes: CTA Bilaterally Gastrointestinal: Yes: Soft Genitourinary: Yes: WNL Edema: LLE: Trace, RLE: Trace Neurological: Yes: Oriented Psychiatric: Yes: Oriented Labs: CBC, BMP 11/27/18 06:30 11/27/18 06:30 Assessment/Plan Current Medications Generic Name Dose Route Start Last Admin Trade Name Freq PRN Reason Stop Dose Admin Albuterol Sulfate 1 amp 11/24/18 16:41 Ventolin 0.083% Nebulizer Soln - NEB Q4H PRN SHORT OF BREATH/WHEEZING Budesonide/Formoterol Fumarate 1 puff 11/24/18 22:00 11/27/18 10:40 Symbicort 160/4.5mcg - IH 1 puff BID PIERO Administration Folic Acid 1 mg 11/25/18 10:00 11/27/18 10:39 Folic Acid - PO 1 mg DAILY PIERO Administration Gabapentin 300 mg 11/24/18 22:00 11/27/18 10:39 Neurontin - PO 300 mg BID PIERO Administration Ceftriaxone Sodium 2 gm/ 100 mls @ 200 mls/hr 11/24/18 17:45 11/27/18 10:49 Dextrose IVPB Not Given DAILY PIERO Lactulose 20 gm 11/24/18 22:00 11/27/18 06:35 Cephulac (Oral Use) PO 20 gm TID PIERO Administration Levetiracetam 500 mg 11/24/18 22:00 11/27/18 10:39 Keppra - PO 500 mg BID PIERO Administration Melatonin 5 mg 11/24/18 16:41 11/26/18 22:17 Melatonin PO 5 mg HS PRN Administration INSOMNIA Oxybutynin Chloride 10 mg 11/25/18 10:00 11/27/18 10:39 Ditropan - PO 10 mg DAILY PIERO Administration Pancrelipase 2 cap 11/25/18 07:00 11/27/18 12:47 Kwame Curry 36,000 Units Capsule PO 2 cap TIDAC PIERO Administration Pantoprazole Sodium 20 mg 11/25/18 10:00 11/27/18 10:39 Protonix - PO 20 mg DAILY PIERO Administration Ropinirole HCl 0.25 mg 11/25/18 11:53 11/26/18 22:08 Requip - PO 0.25 mg HS PIERO Administration Tamsulosin HCl 0.4 mg 11/24/18 22:00 11/27/18 10:39 Flomax - PO 0.4 mg BID PIERO Administration Impression 1. CKD 2. Hep C 3. liver cirrhosis 4. ascites 5. epilepsy 6. substance abuse 7. hepatic encephalopathy 8. SILVANA 9. UTI Plan - renal function continues to improve - restart lasix tomorrow at 40 mg - hold aldactone until volume status and potassium re-evaluated - will need outpt follow, spoke to him and his . He missed his last few appointments. - discussed with medical team Dr Williamson
[2018-11-27 14:51] VITALS: BMI 23.9
--- NOTE | 2018-11-27 15:01 | PN ---
Progress Note (short form) - Note Progress Note: Patient sitting comfortably. Able to open foil lid of beverage with minimal difficulty. Overall, patient states that he feels better.
--- NOTE | 2018-11-27 18:26 | PN ---
Teaching Attending Note Name of Resident: Gloria Azevedo ATTENDING PHYSICIAN STATEMENT I saw and evaluated the patient. I reviewed the resident's note and discussed the case with the resident. I agree with the resident's findings and plan as documented. SUBJECTIVE: Feeling better. Less pain, more mobile. No dysuria/hematuria. No nausea/vomiting. No fever/chills. OBJECTIVE: Afebrile, Hemodynamically Stable. Last Vital Signs Temp Pulse Resp BP Pulse Ox 98.2 F 70 20 140/78 95 11/27/18 09:49 11/27/18 09:49 11/27/18 09:49 11/27/18 09:49 11/27/18 09:00 HEENT - Atraumatic, Normocephalic. Heart - S1, S2, RRR Lungs - clear to auscultation. Abdomen- Soft, non-tender. bowel Soudns normal. Extremities - no calf tenderness. Neuro - AAO x 3. Tone/Power normal all 4 extremities. Laboratory Results - last 24 hr 11/27/18 11/27/18 06:30 06:30 WBC 5.2 RBC 3.65 L Hgb 10.9 L Hct 32.8 L MCV 89.7 MCH 29.9 MCHC 33.3 RDW 18.4 H Plt Count 69 L MPV 9.8 Sodium 144 Potassium 4.6 Chloride 113 H Carbon Dioxide 21 Anion Gap 10 BUN 24 H Creatinine 1.7 H Creat Clearance w eGFR 40.78 Random Glucose 90 Calcium 8.3 L Total Bilirubin 0.5 AST 36 ALT 27 Alkaline Phosphatase 147 H Total Protein 6.7 Albumin 2.4 L Discharge Medications Medication Instructions Recorded Folic Acid 1 mg PO DAILY 11/29/16 levETIRAcetam [Keppra -] 500 mg PO BID tablet 12/06/16 Oxybutynin Chloride [Oxybutynin 10 mg PO DAILY 11/16/17 Chloride ER] Ropinirole HCl [Requip] 0.25 mg PO DAILY 11/16/17 Tamsulosin HCl [Flomax -] 0.4 mg PO BID 11/16/17 Spironolactone [Aldactone -] 50 mg PO DAILY #30 tablet 02/03/18 Furosemide [Lasix] 40 mg PO DAILY #30 tablet 02/07/18 Multivitamin with Iron 1 each PO DAILY 04/27/18 [Multivitamins with Iron] Pantoprazole Sodium [Protonix -] 20 mg PO DAILY 04/27/18 Melatonin 5 mg PO HS PRN tab 04/28/18 Budesonide/Formeterol Fumarate 1 inh PO BID 06/20/18 [SYMBICORT 160/4.5mcg -] Lactulose 20 gm PO TID 06/20/18 Lipase/Protease/Amylase [Creon Dr 36,000 unit PO DAILY 06/20/18 36,000 Units Capsule] Xalatan 0.005% Eye Drops - 1 drop OU DAILY 06/20/18 Albuterol 0.083% Nebulizer Belen 1 amp IH Q4H PRN 11/24/18 [Ventolin 0.083% Nebulizer Soln -] Gabapentin 300 mg PO BID 11/24/18 Levofloxacin 750mg daily for 7 days 11/28/2018 ASSESSMENT AND PLAN: 63 year old male with history of Liver Cirrhosis (secondary to alcohol abuse/ Hep C), Portal Gastropathy with Esophageal varices (s/p banding), hepatitis C, pancreatic insufficiency, seizure disorder, COPD, CKD 3, hypertension presents with difficulty ambulating secondary to chronic back pain. 1. Osteoarthritis with Multi-level DJD of Spine Recent spinal MRI shows spondylosis, ostephytes, and disc bulges. Neurosurgery evaluation (Dr. Chang) - no recommendation for acute surgical intervention at this time Pain management as per Neurosurgery. NSAIDs avoided to prevent SILVANA. For further spinal imaging and intervention by Neurosurgery as out-patient. No extremity weakness, bladder or bowel dysfucntion. 2. SILVANA on CKD 3, possible ATN due to NSAIDs Creat improving Further monitoring as out-patient by PCP/Nephrology 3. UTI Treated empirically with Cephalosporin. Afebrile, Hemodynamically Stable. Discharged on Ceftin, however Urine Cx returned positive for Enterococcus, sens to Levofloxacin (Patient is PCN allergic) Will call patient and recommend change to Levofloxacin for 7 days - prescription to be sent to pharmacy. 4. BPH/Overactive Bladder - Continue Tamsulosin 0.4mg PO BID and Oxybutynin 10mg PO daily 5. History of pancreatic insufficiency -Continue Creon capsules 2PO TID 6. Seizure Disorder - No recent reported seizure activity - continue Keppra 500mg PO BID 7. Liver Cirrhosis secondary to Hepatitis C/Alcohol Abuse - no evidence of decompensation. Unclear whether he has received HepC treatment For out-patient referral by PCP to GI/Hepatology Continue Lactulose 20 grams PO TID and Lasix. Medically stable for discharge.
== END 2018-11-27 15:35 | disposition home or self-care (01) | DRG 469 ==
LOC: JER 12:02 → JERBED 15:58 → J5S 19:55
PROVIDERS: ADMIT Internal Medicine
DX: N17.9 Acute kidney failure, unspecified (principal); G25.81 Restless legs syndrome; J44.9 Chronic obstructive pulmonary disease, unspecified; N18.3 Chronic kidney disease, stage 3 (moderate); K86.89 Other specified diseases of pancreas; M51.27 Other intervertebral disc displacement, lumbosacral region; K74.69 Other cirrhosis of liver; I12.9 Hypertensive chronic kidney disease with stage 1 through stage 4 chronic kidney disease, or unspecified chronic kidney disease; F14.20 Cocaine dependence, uncomplicated; E87.5 Hyperkalemia; D69.6 Thrombocytopenia, unspecified; N39.0 Urinary tract infection, site not specified; B95.2 Enterococcus as the cause of diseases classified elsewhere; K21.9 Gastro-esophageal reflux disease without esophagitis; N40.0 Benign prostatic hyperplasia without lower urinary tract symptoms; Z86.19 Personal history of other infectious and parasitic diseases; K72.90 Hepatic failure, unspecified without coma; G40.909 Epilepsy, unspecified, not intractable, without status epilepticus; R18.8 Other ascites; M47.12 Other spondylosis with myelopathy, cervical region; K31.9 Disease of stomach and duodenum, unspecified; N32.81 Overactive bladder; F10.10 Alcohol abuse, uncomplicated; M47.9 Spondylosis, unspecified
CPT/HCPCS: 36415; 71045-TC-FY; 76775-TC; 80053; 80307; 81003; 82436; 82550; 82565; 84133; 84300; 85025; 85027; 87086; 87186; 93005; 93010; 97116-GP; 97161-GP; 99285-25; J0131; J1644; J7030

== ENCOUNTER 2019-03-08 12:55 | Inpatient (IN) | payer MEDICARE, OTHER ==
[2019-03-08 13:02] VITALS: BMI 24.6
[2019-03-08] MEDS ORDERED: morphine CARPU-JECT 4 MG/1 ML DISP.SYRIN IVPUSH ONE (13:36)
--- NOTE | 2019-03-08 13:42 | PDOC ---
History of Present Illness - General Chief Complaint: Pain Stated Complaint: ABD PAIN Time Seen by Provider: 03/08/19 13:13 - History of Present Illness Initial Comments: The pt is a 64M w/ a history of HTN, HCV s/p treatment, liver cancer s/p left lobe resection (12/2018 at [facility]) who presents for 1 week of generalized (more upper) abdominal pain w/ associated watery diarrhea and bloating. His pain is pressure, diffuse, intermittent, non-radiating, exacerbated by touch and not alleviated by anything he can identify. He denies N/V, fevers/chills, or blood in his stool. He did not have these symptoms during his time in rehab. He has not tried taking anything for his pain. He was seen at his surgeon's office ( Dr. Short) last week where he was told everything was progressing well and his follow up is 04/11/19. He denies changes to his diet, has been compliant with his post-operative diet. 03/08/19 13:37 Past History - Past Medical History Allergies/Adverse Reactions: Allergies Allergy/AdvReac Type Severity Reaction Status Date / Time Penicillins Allergy Unknown Verified 03/08/19 13:02 aspirin AdvReac Intermediate Verified 03/08/19 13:02 Home Medications: Ambulatory Orders levETIRAcetam [Keppra -] 500 mg PO BID tablet 12/06/16 Tamsulosin HCl [Flomax -] 0.4 mg PO DAILY 11/16/17 Furosemide [Lasix] 40 mg PO DAILY #30 tablet 02/07/18 Multivitamin with Iron [Multivitamins with Iron] 1 each PO DAILY 04/27/18 Pantoprazole Sodium [Protonix -] 40 mg PO DAILY 04/27/18 Budesonide/Formeterol Fumarate [SYMBICORT 160/4.5mcg -] 1 inh PO BID 06/20/18 Xalatan 0.005% Eye Drops - 1 drop OU DAILY 06/20/18 Albuterol 0.083% Nebulizer Belen [Ventolin 0.083% Nebulizer Soln -] 1 amp IH Q4H PRN 11/24/18 Gabapentin 300 mg PO BID 11/24/18 Hydralazine HCl 10 mg PO Q8H 03/09/19 Tramadol HCl 50 mg PO BID 03/09/19 traZODone HCL [Trazodone HCl] 25 mg PO DAILY 03/09/19 Lipase/Protease/Amylase [Kwame Curry 36,000 Units Capsule] 1 cap PO DAILY capsule. 03/10/19 Melatonin 5 mg PO HS PRN tab 03/10/19 Ropinirole HCl [Requip -] 0.25 mg PO DAILY tablet 03/10/19 Folic Acid - 1 mg PO DAILY tablet 03/11/19 Spironolactone [Aldactone -] 50 mg PO DAILY 30 Days #60 tablet 03/11/19 Cardiac Disorders: (CKD) CVA: (hepatic encephalopathy) COPD: No CHF: No Diabetes: No GI Disorders: Yes (GI bleed;GERD;ESOPHAGEAL VARICES) Disorders: Yes (CKD,STONES,BPH, hepatitis B and C) HTN: Yes Hypercholesterolemia: Yes Liver Disease: Yes (CIRRHOSIS,HEP C) Seizures: Yes Thyroid Disease: No - Surgical History Abdominal Surgery: Yes (EGD,COLONOSCOPY) - Immunization History Immunization Up to Date: Yes - Suicide/Smoking/Psychosocial Hx Smoking History: Never smoked Have you smoked in the past 12 months: No Number of Cigarettes Smoked Daily: 1 If you are a former smoker, when did you quit?: 2017 Information on smoking cessation initiated: No 'Breaking Loose' booklet given: 09/10/13 Hx Alcohol Use: No Drug/Substance Use Hx: No Substance Use Type: Alcohol, Cocaine, Heroin Hx Substance Use Treatment: Yes Review of Systems - Review of Systems Able to Perform ROS?: Yes Comments:: GENERAL/CONSTITUTIONAL: No fever or chills. No weakness HEAD, EYES, EARS, NOSE AND THROAT: No change in vision. No sore throat CARDIOVASCULAR: No chest pain or shortness of breath RESPIRATORY: Denies cough, hemoptysis GASTROINTESTINAL: +diarrhea; No nausea, vomiting GENITOURINARY: No dysuria, frequency, or change in urination MUSCULOSKELETAL: +chronic back and leg pain SKIN: No rash NEUROLOGIC: No headache, vertigo, loss of consciousness, or change in strength/ sensation ENDOCRINE: No increased thirst. No abnormal weight change HEMATOLOGIC/LYMPHATIC: No anemia, easy bleeding, or history of blood clots ALLERGIC/IMMUNOLOGIC: No hives or skin allergy 03/08/19 13:37 Is the patient limited Israeli proficient: No *Physical Exam - Vital Signs Last Vital Signs Temp Pulse Resp BP Pulse Ox 97.8 F 58 L 18 140/88 99 03/08/19 12:58 03/08/19 12:58 03/08/19 12:58 03/08/19 12:58 03/08/19 12:58 - Physical Exam Comments: GENERAL: Awake, alert, and oriented to person/place/time, in no acute distress HEAD: No signs of trauma, normocephalic, atraumatic EYES: PERRLA, EOMI, sclera anicteric, conjunctiva clear ENT: Hearing grossly normal, nares patent, oropharynx clear without exudates. No uvular deviation. Moist mucosa LUNGS: No distress, speaks in full sentences, clear to auscultation bilaterally HEART: Regular rate and rhythm, normal S1 and S2, no murmurs appreciated, peripheral pulses normal and equal bilaterally ABDOMEN: Protuberant, mild distention, generalized TTP w/o rebound or guarding, small fluid wave palpated EXTREMITIES: Normal inspection, Normal range of motion, no edema. No clubbing or cyanosis NEUROLOGICAL: Cranial nerves II through XII grossly intact. Normal speech, no focal sensorimotor deficits SKIN: Warm, Dry 03/08/19 13:37 ED Treatment Course - LABORATORY CBC & Chemistry Diagram: 03/10/19 05:35 03/10/19 11:02 - RADIOLOGY Radiology Studies Ordered: Category Date Time Status ABDOMEN & PELVIS CT WITH CONTR [CT] Stat CT Scan 03/08/19 13:36 Ordered Medical Decision Making - Medical Decision Making The pt is a 64M w/ a history of liver cancer s/p left lobe resection (12/2018), HTN, HCV s/p treatment who presents for 1 week of generalized abdominal pain and diarrhea Ddx: ascites related to decreased liver function, viral enteritis, consider surgical site bleed/leak, less likely AAA/AD ED Course CMP, CBC, Coags POCUS US w/ ascites CT A&P w/ IV contrast Morphine 2mg IV once for pain 03/08/19 13:44 Trop I neg LFTs mildly elevated w/ known liver disease CT w/o obtained w/ evidence of chronic pathology and ascites Plan for admission for likely therapeutic paracentesis Pt signed out to [facility] Admitting Dispo: Admit *DC/Admit/Observation/Transfer Diagnosis at time of Disposition: Ascites Qualifiers: Ascites type: other type Qualified Code(s): R18.8 - Other ascites Abdominal pain Qualifiers: Abdominal location: unspecified location Qualified Code(s): R10.9 - Unspecified abdominal pain CKD (chronic kidney disease) Qualifiers: Chronic kidney disease stage: unspecified stage Qualified Code(s): N18.9 - Chronic kidney disease, unspecified - Discharge Dispostion Condition at time of disposition: Fair Decision to Admit order: Yes - Referrals - Patient Instructions - Post Discharge Activity
[2019-03-08] MEDS ORDERED: MORPHINE SULFATE 2 MG/ML VIAL ONE (14:05)
[2019-03-08 14:46] LABS: BASO % 0.9 % (0-2.0); EOS % 3.6 % (0-4.5); HEMATOCRIT 36.3 % (35.4-49); HEMOGLOBIN 11.6 GM/dL (11.7-16.9); LYMPH % 19.1 % (8-40); MCH 29.1 pg (25.7-33.7); MCHC 31.9 g/dl (32.0-35.9); MEAN CELL VOLUME 91.3 fl (80-96); MEAN PLT VOLUME 9.7 fl (7.5-11.1); MONO % 18.6 % (3.8-10.2); NEUT % 57.8 % (42.8-82.8); PLATELET COUNT 93 K/MM3 (134-434); RBC 3.98 M/mm3 (4.00-5.60); RDW 16.9 % (11.9-15.9); WHITE BLOOD COUNT 5.2 K/mm3 (4.0-10.0)
[2019-03-08 15:08] LABS: ALBUMIN 2.9 g/dl (3.4-5.0); ALK PHOS 242 U/L (45-117); ANION GAP 6 MMOL/L (8-16); BILIRUBIN,TOTAL 1.1 mg/dL (0.2-1); CALCIUM 8.8 mg/dL (8.5-10.1); CHLORIDE 113 mmol/L (98-107); CO2 29 mmol/L (21-32); GLUCOSE,RANDOM 101 mg/dL (74-106); MAGNESIUM 2.1 mg/dL (1.8-2.4); POTASSIUM 4.5 mmol/L (3.5-5.1); SGOT/AST 55 U/L (15-37); SGPT/ALT 34 U/L (13-61); SODIUM 147 mmol/L (136-145)
[2019-03-08 15:24] LABS: INR 1.11 (0.83-1.09); PROTHROMBIN TIME (PATIENT) 13.1 SEC (9.7-13.0)
[2019-03-08 15:27] LABS: ACTIVATED PTT 39.2 SECONDS (25.2-36.5)
--- NOTE | 2019-03-08 16:19 | PDOC ---
Documentation entered by Shelly Irving SCRIBE, acting as scribe for Kavitha Valdez MD. Kavitha Valdez MD: This documentation has been prepared by the Aristides logan Brenda, SCRIBE, under my direction and personally reviewed by me in its entirety. I confirm that the documentation accurately reflects all work, treatment, procedures, and medical decision making performed by me. Attending Attestation - Resident Resident Name: Regino Poe - ED Attending Attestation I have performed the following: I have examined & evaluated the patient, The case was reviewed & discussed with the resident, I agree w/resident's findings & plan, Exceptions are as noted - HPI HPI: 03/08/19 13:27 Mr Lopez is a 64 yo M h/o HTN, prior h/o Hep C with cirrhosis (ascites and esophageal banding), liver mass s/p Left liver lobectomy, pancreatic insufficiency, He presents today for 1 week of upper abdominal pain and abdominal bloating ETOH /cocaine/heroin abuse, COPD, CKD, RLS, chronic back pain with multiple disc herniation to LS spine on recent MRI, on gabapentin, ambulates with a walker, who presents to the emergency department with 1 week of upper abdominal pain and abdominal bloating. Pt also reports diarrhea x 1 week All symptoms have been present since leaving rehab Pt denies fevers, chills, vomiting, nausea The patient denies chest pain, shortness of breath, headache and dizziness. Denies fever, chills, nausea, vomiting, and constipation. Denies any urinary symptoms.. Allergies: NKA Past surgical history: EGD,COLONOSCOPY, Liver lobectomy for liver cancer., Social history: former smoker, quit 2017. PCP: Kwadwo Osborne - Physicial Exam PE: 03/08/19 13:28 GENERAL: The patient is in no acute distress. ENT: Ears normal, nares patent, oropharynx clear without exudates. Moist mucous membranes. NECK: Normal range of motion, supple LUNGS: Breath sounds equal, clear to auscultation bilaterally. No wheezes, and no crackles. HEART:Regular rate and rhythm, normal S1 and S2 without murmur, rub or gallop. ABDOMEN: Soft, protruberant, (+) fluid wave, diffusely tender to palpation. EXTREMITIES: Normal range of motion, no edema. NEUROLOGICAL: Cranial nerves II through XII grossly intact. Normal speech. No focal neurological deficits. SKIN: Warm, Dry, normal turgor, no rashes or lesions noted. - Medical Decision Making 03/08/19 15:01 64 yo M s/p Laproscopic hepatic lobectomy 2 months ago for liver cancer Pt presents with a complaint of progressively worsening abdominal distention He also notes lower back pain No fevers or chills No abdominal tenderness per say These symptoms have been present for the past week [facility] EKG: SB rate of 53 bpm, axis nml, intervals nml, no st elevation or depression, (+) PVC 03/08/19 16:16 Bedside US demonstrates ascites, possible splenic subcapsular hematoma Laboratory Tests 03/08/19 03/08/19 03/08/19 14:25 14:25 14:25 WBC 5.2 Hgb 11.6 L Hct 36.3 Plt Count 93 L D INR 1.11 H Sodium 147 H Potassium 4.5 Chloride 113 H Carbon Dioxide 29 BUN 23.0 H Creatinine 2.0 H Random Glucose 101 Alkaline Phosphatase 242 H Troponin I < 0.02 CT pending 03/08/19 16:18 03/08/19 17:37 CT demonstrates moderate ascites, no bleeding No other findings Will admit Clinical impression: ascites, initial presentation 03/09/19 10:55
--- NOTE | 2019-03-08 17:00 | CONSULT ---
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 He says that he has had the symptoms for about a week. He denies fevers or chills. He does complain of loose stools. He says that he takes all of his meds but does not remember what he is on. He says he does have appetite. 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: Yes: Seizure Cardio/Vascular: Yes: HTN Pulmonary: Yes: COPD Gastrointestinal: Yes: Esophageal Varices (Unclear by his history), GERD Hepatobiliary: Yes: Cirrhosis, Hepatitis C Renal/: Yes: Renal Inusuff, BPH - Alcohol/Substance Use Hx Alcohol Use: No History of Substance Use: reports: Cocaine (states abstinence for 1 year), Heroin - Smoking History Smoking history: Never smoked Have you smoked in the past 12 months: No Aproximately how many cigarettes per day: 1 If you are a former smoker, when did you quit?: 2017 - Social History Usual Living Arrangement: Alone ADL: Support Services Occupation: not currently working History of Recent Travel: No Home Medications - Allergies Allergies/Adverse Reactions: Allergies Allergy/AdvReac Type Severity Reaction Status Date / Time Penicillins Allergy Unknown Verified 03/08/19 13:02 aspirin AdvReac Intermediate Verified 03/08/19 13:02 - Home Medications Home Medications: Ambulatory Orders Folic Acid 1 mg PO DAILY 11/29/16 levETIRAcetam [Keppra -] 500 mg PO BID tablet 12/06/16 Oxybutynin Chloride [Oxybutynin Chloride ER] 10 mg PO DAILY 11/16/17 Ropinirole HCl [Requip] 0.25 mg PO DAILY 11/16/17 Tamsulosin HCl [Flomax -] 0.4 mg PO BID 11/16/17 Spironolactone [Aldactone -] 50 mg PO DAILY #30 tablet 02/03/18 Furosemide [Lasix] 40 mg PO DAILY #30 tablet 02/07/18 Multivitamin with Iron [Multivitamins with Iron] 1 each PO DAILY 04/27/18 Pantoprazole Sodium [Protonix -] 20 mg PO DAILY 04/27/18 Melatonin 5 mg PO HS PRN tab 04/28/18 Budesonide/Formeterol Fumarate [SYMBICORT 160/4.5mcg -] 1 inh PO BID 06/20/18 Lactulose 20 gm PO TID 06/20/18 Lipase/Protease/Amylase [Creon Dr 36,000 Units Capsule] 36,000 unit PO DAILY Xalatan 0.005% Eye Drops - 1 drop OU DAILY 06/20/18 Albuterol 0.083% Nebulizer Belen [Ventolin 0.083% Nebulizer Soln -] 1 amp IH Q4H PRN 11/24/18 Gabapentin 300 mg PO BID 11/24/18 levoFLOXacin [Levaquin] 750 mg PO DAILY 7 Days #7 tab 11/28/18 Family Disease History - Family Disease History Family History: Denies Review of Systems - Review of Systems Constitutional: reports: Malaise. denies: Chills, Fever Eyes: reports: No Symptoms HENT: reports: No Symptoms Neck: reports: No Symptoms Cardiovascular: reports: Edema Respiratory: reports: No Symptoms Gastrointestinal: reports: Abdominal Pain, Bloating, Diarrhea Genitourinary: reports: No Symptoms Musculoskeletal: reports: No Symptoms Integumentary: reports: No Symptoms Neurological: reports: No Symptoms Endocrine: reports: No Symptoms Hematology/Lymphatic: reports: No Symptoms Psychiatric: reports: No Symptoms Physical Exam Vital Signs: Vital Signs Temperature 97.8 F 03/08/19 12:58 Pulse Rate 58 L 03/08/19 12:58 Respiratory Rate 18 03/08/19 12:58 Blood Pressure 140/88 03/08/19 12:58 O2 Sat by Pulse Oximetry (%) 99 03/08/19 12:58 Constitutional: Yes: Calm Eyes: Yes: Conjunctiva Clear HENT: Yes: Atraumatic Cardiovascular: Yes: S1, S2 Respiratory: Yes: CTA Bilaterally Gastrointestinal: Yes: Soft, Distention Renal/: Yes: WNL Musculoskeletal: Yes: WNL Extremities: Yes: WNL Edema: Yes Edema: LLE: 1+, RLE: 1+ Neurological: Yes: Oriented Psychiatric: Yes: Oriented Labs: CBC, BMP 03/08/19 14:25 03/08/19 14:25 Problem List - Problems (1) Abdominal pain Code(s): R10.9 - UNSPECIFIED ABDOMINAL PAIN (2) CKD (chronic kidney disease) Code(s): N18.9 - CHRONIC KIDNEY DISEASE, UNSPECIFIED (3) Cirrhosis Code(s): K74.60 - UNSPECIFIED CIRRHOSIS OF LIVER Qualifiers: Assessment/Plan Impression 1. CKD 2. Hep C 3. liver cirrhosis 4. ascites 5. epilepsy 6. substance abuse 7. hx of lobectomy 8. diarrhea 9. abd pain Plan - baseline harm reduction worker is about 1.7 - repeat labs in am - avoid nsaids - follow up ct scan - check ua - check urine lytes and harm reduction worker
--- NOTE | 2019-03-08 19:06 | PN ---
Teaching Attending Note Name of Resident: Erika Gordon ATTENDING PHYSICIAN STATEMENT I saw and evaluated the patient. I reviewed the resident's note and discussed the case with the resident. I agree with the resident's findings and plan as documented. SUBJECTIVE: Patient is a 64 year old man with PMH of HTN, Penicillin allergy, CKD, COPD, Back pain, HCV disease with cirrhosis (s/p treatment), Remote alcohol/drug abuse and Liver cancer (s/p left lobe resection 12/2018 at [facility]) who presents for 1 week of generalized abdominal pain associated with watery diarrhea and bloating. His pain is pressure-like, diffuse, intermittent, non-radiating, exacerbated by touch and not alleviated by anything he can identify. He denies nausea, vomiting, fevers/chills, or blood in his stool. He did not have these symptoms during his time in Rehab. Also reports diarrhea for 1 week and all symptoms have been present since leaving Rehab. Has family history of DM and CKD. The patient denies chest pain, shortness of breath, headache and dizziness. Denies any urinary symptoms, recent travel or known sick contacts. OBJECTIVE: Alert Vital Signs Period Temp Pulse Resp BP Sys/Eisenberg Pulse Ox Last 24 Hr 97.8 F 58-62 18-18 133-140/72-88 99-100 HEENT: No Jaundice, eye redness or discharge, PERRLA, EOMI. Normocephalic, atraumatic. Edentulous. External ears are normal and hearing is grossly intact. No nasal discharge. Neck: Supple, nontender. No palpable adenopathy or thyromegaly. No JVD Chest: Good effort. Clear to auscultation and percussion. Heart: Regular. No S3, rub or murmur Abdomen: Distended with shifting dullness, soft, nontender and no HSM. No rebound or guarding. Normal bowel sounds. Ext: Peripheral pulses intact. No leg edema. Skin: Warm and dry. No petechiae, rash or ecchymosis. Neuro: Alert. Oriented x3. CN 2-12 grossly intact. Sensation grossly intact in all four extremities and DTR are symmetric. Psych: Appropriate mood and affect. Good insight. Home Medications Medication Instructions Recorded Folic Acid 1 mg PO DAILY 11/29/16 levETIRAcetam [Keppra -] 500 mg PO BID tablet 12/06/16 Oxybutynin Chloride [Oxybutynin 10 mg PO DAILY 11/16/17 Chloride ER] Ropinirole HCl [Requip] 0.25 mg PO DAILY 11/16/17 Tamsulosin HCl [Flomax -] 0.4 mg PO BID 11/16/17 Spironolactone [Aldactone -] 50 mg PO DAILY #30 tablet 02/03/18 Furosemide [Lasix] 40 mg PO DAILY #30 tablet 02/07/18 Multivitamin with Iron 1 each PO DAILY 04/27/18 [Multivitamins with Iron] Pantoprazole Sodium [Protonix -] 20 mg PO DAILY 04/27/18 Melatonin 5 mg PO HS PRN tab 04/28/18 Budesonide/Formeterol Fumarate 1 inh PO BID 06/20/18 [SYMBICORT 160/4.5mcg -] Lactulose 20 gm PO TID 06/20/18 Lipase/Protease/Amylase [Creon Dr 36,000 unit PO DAILY 06/20/18 36,000 Units Capsule] Xalatan 0.005% Eye Drops - 1 drop OU DAILY 06/20/18 Albuterol 0.083% Nebulizer Belen 1 amp IH Q4H PRN 11/24/18 [Ventolin 0.083% Nebulizer Soln -] Gabapentin 300 mg PO BID 11/24/18 levoFLOXacin [Levaquin] 750 mg PO DAILY 7 Days #7 tab 11/28/18 Abnormal Lab Results 03/08/19 03/08/19 03/08/19 14:25 14:25 14:25 RBC 3.98 L Hgb 11.6 L MCHC 31.9 L RDW 16.9 H Plt Count 93 L D Monocytes % 18.6 H PT with INR 13.10 H INR 1.11 H PTT (Actin FS) 39.2 H Sodium 147 H Chloride 113 H Anion Gap 6 L BUN 23.0 H Creatinine 2.0 H Total Bilirubin 1.1 H AST 55 H Alkaline Phosphatase 242 H Albumin 2.9 L ASSESSMENT AND PLAN: 1. Abdominal pain syndrome/Ascites and Diarrhea - Only significant new change noted on CT abdomen/pelvis is moderate to large ascites - all the other findings are chronic. There is no clinical evidence that he has peritonitis - will refer to IR for diagnostic/therapeutic paracentesis. Loose stool may be due to lactulose therapy. Will send stool for analysis including C.diff. Consult GI. EKG shows sinus bradycardia with PACs - will monitor closely and repeat EKG. Low platelets likely due to liver disease - will monitor daily. Consult GI 2. Hypoalbuminemia - Possibly due to combined effects of malnutrition and inflammation associated with comorbid chronic conditions. Will ensure adequate dietary protein intake and also consult type rolling machine operator. 3. CKD? - Cause unclear. Will consult nephrology and avoid nephrotoxic agents such as NSAIDS, aminoglycosides, contrast dyes and certain Alternative medicine products. 4. Anemia - Likely multifactorial. Will do basic anemia work up including serial stool guaiacs, reticulocyte count and iron studies. 5. Hypertension - Restart suitable outpatient antihypertensive drugs when clinically appropriate. Revise regimen to ensure [id number] excellent BP control and agency legal counsel patient on the injurious effects of uncontrolled hypertension. Nonpharmacologic measures to control hypertension like weight loss , salt restriction and exercise discussed. Importance of adherence to treatment regimen and attainment of normotension emphasized. 6. DVT prophylaxis - Heparin 5000u sq tid. (Monitor platelet count daily). 7. Advance directives - Full code
[2019-03-08 19:38] LABS: URINE APPEARANCE CLEAR; URINE BILIRUBIN NEGATIVE (NEGATIVE); URINE COLOR YELLOW; URINE GLUCOSE (UA) NEGATIVE (NEGATIVE); URINE KETONE NEGATIVE (NEGATIVE); URINE LEUK ESTERASE NEGATIVE (NEGATIVE); URINE NITRITE NEGATIVE (NEGATIVE); URINE PROTEIN NEGATIVE (NEGATIVE); URINE UROBILINOGEN 0.2 mg/dL (0.2-1.0)
--- NOTE | 2019-03-08 20:50 | HP ---
CHIEF COMPLAINT: Abd bloating and pain PCP: Dr. Jama HISTORY OF PRESENT ILLNESS: Patient is a 64 year old male with PMH of HTN, HCV (s/p treatment), liver CA (s/ p resection 12/2018), epilepsy, and COPD who presents who presents with generalized upper abd pain and bloating for one week. Pt describes his pain as a pressure sensation, intermittent, non-radiating, and exacerbated by touch. Pain is associated with several episodes of watery diarrhea and progressive abd distension over the past week. He has not taken anything for pain and cannot identify any alleviating factors. He denies associated nausea, vomiting, fevers , chills, melena, or urinary symptoms. Pt endorses a good appetite, has not made any changes in his diet or medications, although he admits he sometimes forgets to take his meds. Pt had left liver lobe resection in December [address] Short at [facility]. He was sent to rehab s/p surgery where he recovered for 2 months. Pt was discharged home 2 weeks ago. He states that he has not had any of these symptoms up until a week ago. Pt last saw Dr. Short one week ago and told he was progressing well and should f/u in March. ER course was notable for: (1) CT abd: increased ascites noted within the abd and pelvis (mod-large). No other interval changes from prior imaging (2) BUN: 23, Cr: 2 (3) Given morphine 2mg for pain Recent Travel: denies PAST MEDICAL HISTORY: HTN HCV (s/p treatment several years ago) Liver CA (s/p resection January 10) Epilepsy COPD PAST SURGICAL HISTORY: Liver: L lobe resection January 10 @ [facility] Social History: Smokin pack year history - quit 5 years ago Alcohol: heavy drinker for 45 years - quit 1 year ago Drugs: heroin, cocaine - quit 1 year ago Family History: Father: CKD, DM Mother: HTN, DM Allergies Penicillins Allergy (Unknown, Verified 03/08/19 13:02) aspirin Adverse Reaction (Intermediate, Verified 03/08/19 13:02) HOME MEDICATIONS: Home Medications Medication Instructions Recorded Folic Acid 1 mg PO DAILY 11/29/16 levETIRAcetam [Keppra -] 500 mg PO BID tablet 12/06/16 Oxybutynin Chloride [Oxybutynin 10 mg PO DAILY 11/16/17 Chloride ER] Ropinirole HCl [Requip] 0.25 mg PO DAILY 11/16/17 Tamsulosin HCl [Flomax -] 0.4 mg PO BID 11/16/17 Spironolactone [Aldactone -] 50 mg PO DAILY #30 tablet 02/03/18 Furosemide [Lasix] 40 mg PO DAILY #30 tablet 02/07/18 Multivitamin with Iron 1 each PO DAILY 04/27/18 [Multivitamins with Iron] Pantoprazole Sodium [Protonix -] 20 mg PO DAILY 04/27/18 Melatonin 5 mg PO HS PRN tab 04/28/18 Budesonide/Formeterol Fumarate 1 inh PO BID 06/20/18 [SYMBICORT 160/4.5mcg -] Lactulose 20 gm PO TID 06/20/18 Lipase/Protease/Amylase [Creon Dr 36,000 unit PO DAILY 06/20/18 36,000 Units Capsule] Xalatan 0.005% Eye Drops - 1 drop OU DAILY 06/20/18 Albuterol 0.083% Nebulizer Belen 1 amp IH Q4H PRN 11/24/18 [Ventolin 0.083% Nebulizer Soln -] Gabapentin 300 mg PO BID 11/24/18 levoFLOXacin [Levaquin] 750 mg PO DAILY 7 Days #7 tab 11/28/18 REVIEW OF SYSTEMS CONSTITUTIONAL: Absent: fever, chills, diaphoresis, generalized weakness, malaise, loss of appetite, weight change HEENT: Absent: rhinorrhea, nasal congestion, throat pain, throat swelling, difficulty swallowing, mouth swelling, ear pain, eye pain, visual changes CARDIOVASCULAR: Absent: chest pain, syncope, palpitations, irregular heart rate, lightheadedness , peripheral edema RESPIRATORY: Absent: cough, shortness of breath, dyspnea with exertion, orthopnea, wheezing, stridor, hemoptysis GASTROINTESTINAL: abdominal pain, abdominal distension, diarrhea Absent: nausea, vomiting, constipation, melena, hematochezia GENITOURINARY: Absent: dysuria, frequency, urgency, hesitancy, hematuria, flank pain, genital pain MUSCULOSKELETAL: Absent: myalgia, arthralgia, joint swelling, back pain, neck pain SKIN: Absent: rash, itching, pallor HEMATOLOGIC/IMMUNOLOGIC: Absent: easy bleeding, easy bruising, lymphadenopathy, frequent infections ENDOCRINE: Absent: unexplained weight gain, unexplained weight loss, heat intolerance, cold intolerance NEUROLOGIC: Absent: headache, focal weakness or paresthesias, dizziness, unsteady gait, seizure, mental status changes, bladder or bowel incontinence PSYCHIATRIC: Absent: anxiety, depression, suicidal or homicidal ideation, hallucinations. PHYSICAL EXAMINATION Vital Signs - 24 hr 03/08/19 03/08/19 12:58 19:22 Temperature 97.8 F Pulse Rate 58 L Pulse Rate [ 62 Right Radial] Respiratory 18 18 Rate Blood Pressure 140/88 Blood Pressure 133/72 [Right Arm] O2 Sat by Pulse 99 100 Oximetry (%) GENERAL: Awake, alert, and fully oriented, in no acute distress. HEAD: Normal with no signs of trauma. EYES: Pupils equal, round and reactive to light, extraocular movements intact, sclera anicteric, conjunctiva clear. No lid lag. EARS, NOSE, THROAT: Ears normal, nares patent, oropharynx clear without exudates. Moist mucous membranes. NECK: Normal range of motion, supple without lymphadenopathy, JVD, or masses. LUNGS: Breath sounds equal, clear to auscultation bilaterally. No wheezes, and no crackles. No accessory muscle use. HEART: Regular rate and rhythm, normal S1 and S2 without murmur, rub or gallop. ABDOMEN: Distended, shifting dullnes, mild tenderness, but no peritoneal signs, normoactive bowel sounds, no guarding, no rebound, no masses. No hepatomegaly or splenomegaly. MUSCULOSKELETAL: Normal range of motion at all joints. No bony deformities or tenderness. No CVA tenderness. UPPER EXTREMITIES: 2+ pulses, warm, well-perfused. No cyanosis. No clubbing. No peripheral edema. LOWER EXTREMITIES: 2+ pulses, warm, well-perfused. No calf tenderness. No peripheral edema. NEUROLOGICAL: Cranial nerves II-XII intact. Slurred speech. Gait not observed. PSYCHIATRIC: Cooperative. Good eye contact. Appropriate mood and affect. SKIN: Warm, dry, normal turgor, no rashes or lesions noted, normal capillary refill. Laboratory Results - last 24 hr CBC, BMP 03/08/19 14:25 03/08/19 14:25 Urine Test Results Urine Color Yellow Urine Appearance Clear Urine pH 5.0 (5.0-8.0) Ur Specific Sebastian 1.013 (1.010-1.035) Urine Protein Negative (NEGATIVE) Urine Glucose (UA) Negative (NEGATIVE) Urine Ketones Negative (NEGATIVE) Urine Blood Negative (NEGATIVE) Urine Nitrite Negative (NEGATIVE) Urine Bilirubin Negative (NEGATIVE) Ur Leukocyte Esterase Negative (NEGATIVE) Hepatic Panel Total Bilirubin 1.1 mg/dL (0.2-1) H AST 55 U/L (15-37) H ALT 34 U/L (13-61) Alkaline Phosphatase 242 U/L (45-117) H Albumin 2.9 g/dl (3.4-5.0) L ASSESSMENT/PLAN: Patient is a 64 year old male with PMH of HTN, HCV (s/p treatment), liver CA (s/ p resection 12/2018), epilepsy, and COPD who presents who presents with generalized upper abd pain and bloating for one week. #Abd distension and pain Likely 2/2 increased ascites given pt's liver hx and recent surgery CT abd: increased ascites noted within the abd and pelvis (mod-large). No other interval changes. Consulting GI for paracentesis as it will be both therapeutic and diagnostic. Send for fluid analysis Hold off on abx for now, as there is low suspicion for SBO (afebrile, no leukocytosis, not in acute distress, absence of peritoneal signs) Morphine 2mg prn for pain Close monitoring for any signs of infection Holding pt's asa for now, awaiting paracentesis in am #SILVANA vs CKD BUN: 23 Cr: 2 (pt's baseline Cr: 1.7) Likely chronic 2/2 pt's liver disease Nephrology (Dr. Williamson) consulted, f/u recommendations F/u urine electrolytes, Cr, and UA Avoid nephrotoxic agents Cont to monitor kidney function #Normocytic anemia Hgb: 11.6, Hct: 6.3 (baseline Hgb: ~10) PT: 13.1, PTT: 39.2, INR: 1.11 F/u FOBT Likely 2/2 chronic disease. Will hold off on further w/u at pt is stable #Bradycardia HR: 58. New onset, as pt's HR at last admission (11/2018) was in the 70s-80s. On review of meds, there is nothing that would cause pt's bradycardia Pt is asymptomatic at this time Repeat EKG in am Close cardiac monitoring #Liver disease Cont home meds: spironolactone 50mg daily and lasix 40mg daily #HTN Cont home meds #Epilepsy Cont home meds: keppra 500mg BID #COPD Cont home meds: symbicort, albuterol #FEN No standing fluids Keep NPO, awaiting paracentesis #DVT ppx SCDs, given low platelet count. F/u platelet count and coags #Dispo Monitor on med-surg Visit type - Emergency Visit Emergency Visit: Yes ED Registration Date: 03/08/19 Care time: The patient presented to the Emergency Department on the above date and was hospitalized for further evaluation of their emergent condition. - New Patient This patient is new to me today: Yes Date on this admission: 03/09/19 - Critical Care Critical Care patient: No ATTENDING PHYSICIAN STATEMENT I saw and evaluated the patient. I reviewed the resident's note and discussed the case with the resident. I agree with the resident's findings and plan as documented. SUBJECTIVE: OBJECTIVE: ASSESSMENT AND PLAN:
[2019-03-08] MEDS ORDERED: ALBUTEROL SO4 0.083% IH SOL 2.5 MG/3 ML VIAL.NEB. NEB PRN (22:53)
--- NOTE | 2019-03-09 00:29 | CON.GI ---
Consult Consult Specialty:: GI Referred by:: Hospitalist Service Reason for Consultation:: Ascites - History of Present Illness Chief Complaint: Abdominal bloating History of Present Illness: 64 y/o male with a history of alcoholic / CHC cirrhosis with sequelae of esophageal varices (ablated via banding), hepatic encephalopathy, HCC s/p recent resection at [facility] admitted for evaluation of abdominal distention. States that he follows with senior technologist Dr. Ly at [facility] but is uncertain when his next appointment is with her. He is supposed to follow-up with Dr. Jorge Ascencio, hepatobiliary surgeon who performed the resection, in March. Called by primary team for "paracentesis". The patient denies shortness of breath, abdominal pain. He describes loose bowel movements intermittently. [facility] refer [facility] for previous endoscopy reports and colonoscopy findings. CT scan on admission revealed moderate to large ascites. 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: Seizure Cardio/Vascular: Yes: HTN Pulmonary: Yes: COPD Gastrointestinal: Yes: Esophageal Varices (Unclear by his history), GERD Hepatobiliary: Yes: Cirrhosis (with sequelae of hepatic encephalopathy, esophageal varices, HCC ), Hepatitis C Renal/: Yes: Renal Inusuff, BPH - Past Surgical History Additional Surgical History: Resection of HCC - Alcohol/Substance Use Hx Alcohol Use: Yes History of Substance Use: reports: Cocaine (states abstinence for 1 year), Heroin - Smoking History Smoking history: Never smoked Have you smoked in the past 12 months: No Aproximately how many cigarettes per day: 1 If you are a former smoker, when did you quit?: 2017 - Social History Usual Living Arrangement: Alone ADL: Support Services Occupation: not currently working Place of : [facility] History of Recent Travel: No Home Medications - Allergies Allergies/Adverse Reactions: Allergies Allergy/AdvReac Type Severity Reaction Status Date / Time Penicillins Allergy Unknown Verified 03/08/19 13:02 aspirin AdvReac Intermediate Verified 03/08/19 13:02 - Home Medications Home Medications: Ambulatory Orders Folic Acid 1 mg PO DAILY 11/29/16 levETIRAcetam [Keppra -] 500 mg PO BID tablet 12/06/16 Oxybutynin Chloride [Oxybutynin Chloride ER] 10 mg PO DAILY 11/16/17 Ropinirole HCl [Requip] 0.25 mg PO DAILY 11/16/17 Tamsulosin HCl [Flomax -] 0.4 mg PO BID 11/16/17 Spironolactone [Aldactone -] 50 mg PO DAILY #30 tablet 02/03/18 Furosemide [Lasix] 40 mg PO DAILY #30 tablet 02/07/18 Multivitamin with Iron [Multivitamins with Iron] 1 each PO DAILY 04/27/18 Pantoprazole Sodium [Protonix -] 20 mg PO DAILY 04/27/18 Melatonin 5 mg PO HS PRN tab 04/28/18 Budesonide/Formeterol Fumarate [SYMBICORT 160/4.5mcg -] 1 inh PO BID 06/20/18 Lactulose 20 gm PO TID 06/20/18 Lipase/Protease/Amylase [Kwame Curry 36,000 Units Capsule] 36,000 unit PO DAILY Xalatan 0.005% Eye Drops - 1 drop OU DAILY 06/20/18 Albuterol 0.083% Nebulizer Belen [Ventolin 0.083% Nebulizer Soln -] 1 amp IH Q4H PRN 11/24/18 Gabapentin 300 mg PO BID 11/24/18 levoFLOXacin [Levaquin] 750 mg PO DAILY 7 Days #7 tab 11/28/18 Family Disease History - Family Disease History Other Family History: No family history of colorectal cancer, liver disease Review of Systems - Review of Systems Constitutional: denies: Chills Cardiovascular: denies: Chest Pain Respiratory: denies: SOB Gastrointestinal: denies: Abdominal Pain, Nausea, Vomiting Physical Exam-GI Vital Signs: Vital Signs Temperature 98.3 F 03/08/19 21:00 Pulse Rate 65 03/08/19 21:00 Respiratory Rate 18 03/08/19 21:00 Blood Pressure 158/88 03/08/19 21:00 O2 Sat by Pulse Oximetry (%) 100 03/08/19 21:00 Constitutional: Yes: Calm Eyes: No: Sclera Icterus Cardiovascular: Yes: Regular Rate and Rhythm, Murmur Respiratory: Yes: CTA Bilaterally Gastrointestinal Inspection: Yes: Distention (mildly protuberant), Scars ( pelvic scar, healed abdominal trochar scars) ...Auscultate: Yes: Normoactive Bowel Sounds ...Palpate: Yes: Soft. No: Tenderness ...Percussion: Yes: Fluid Wave Edema: No (No LE edema) Neurological: Yes: Alert. No: [employer] Labs: CBC, BMP 03/08/19 14:25 03/08/19 14:25 INR, PTT INR 1.11 (0.83-1.09) H 03/08/19 14:25 Imaging - Results Cat Scan: Report Reviewed, Image Reviewed Problem List - Problems (1) Ascites Assessment/Plan: Sequelae of his chronic liver disease Paracentesis can be performed for diagnostic and therapeutic purposes. It is non emergent and is generally performed by interventional radiology in that setting. US guided paracentesis has been ordered. Also, proper fluid analysis needs to be ordered along with a paracentesis. Fluid for cell count with diff, culture, albumin, total protein have been ordered. Fluid cytology needs to be ordered as well. As noted in [employer], that needs to be ordered in the physical chart. Fluid management will be difficult given the restrictions that his renal insufficiency poses to adequate diuresis. Renal has been consulted and Mr. Lopez will be best served following up at his liver center [facility]. Please make sure that proper follow-up with senior technologist Dr. Ly has been arranged for Mr. Lopez prior to his discharge. He will need to be maintained on a 2 g low sodium diet (preferably chopped given his history of schatzki's ring). Code(s): R18.8 - OTHER ASCITES
[2019-03-09 07:45] LABS: BASO % 1.4 % (0-2.0); EOS % 5.3 % (0-4.5); HEMATOCRIT 31.2 % (35.4-49); HEMOGLOBIN 10.3 GM/dL (11.7-16.9); LYMPH % 21.2 % (8-40); MCH 29.6 pg (25.7-33.7); MCHC 33.1 g/dl (32.0-35.9); MEAN CELL VOLUME 89.3 fl (80-96); MEAN PLT VOLUME 9.4 fl (7.5-11.1); MONO % 18.1 % (3.8-10.2); PLATELET COUNT 75 K/MM3 (134-434); RBC 3.49 M/mm3 (4.00-5.60); RDW 16.5 % (11.9-15.9); WHITE BLOOD COUNT 4.4 K/mm3 (4.0-10.0)
[2019-03-09 08:10] LABS: ALBUMIN 2.2 g/dl (3.4-5.0); BILIRUBIN,TOTAL 0.9 mg/dL (0.2-1); BLOOD UREA NITROGEN 20.3 mg/dL (7-18); CALCIUM 8.2 mg/dL (8.5-10.1); CREATININE 1.8 mg/dL (0.55-1.3); MAGNESIUM 2.1 mg/dL (1.8-2.4); PHOSPHOROUS 3.4 mg/dL (2.5-4.9); POTASSIUM 4.1 mmol/L (3.5-5.1); TOT PROT 6.1 g/dl (6.4-8.2)
[2019-03-09] MEDS: FUROSEMIDE 40 MG TABLET (FP) PO SCH (09:19)
[2019-03-09] MEDS: BUDESONIDE/FORMETEROL FUMARATE 160/4.5 mcg INHALER IH SCH ×2 (09:19→21:20)
[2019-03-09] MEDS: levETIRAcetam 500 MG TABLET (FP) PO SCH ×2 (09:19→21:20)
[2019-03-09] MEDS: SPIRONOLACTONE 25 MG TABLET (FP) PO SCH (09:19)
[2019-03-09] MEDS: TAMSULOSIN HCL 0.4 MG CAP PO SCH ×2 (09:19→21:20)
[2019-03-09 09:25] LABS: PH,URINE 5.5 (5.0-8.0); URINE APPEARANCE CLEAR; URINE BILIRUBIN NEGATIVE (NEGATIVE); URINE COLOR YELLOW; URINE GLUCOSE (UA) NEGATIVE (NEGATIVE); URINE KETONE NEGATIVE (NEGATIVE); URINE LEUK ESTERASE TRACE (NEGATIVE); URINE NITRITE NEGATIVE (NEGATIVE); URINE PROTEIN NEGATIVE (NEGATIVE)
--- NOTE | 2019-03-09 11:35 | EKG ---
Test Reason : Blood Pressure : / mmHG Vent. Rate : 058 BPM Atrial Rate : 058 BPM P-R Int : 150 ms QRS Dur : 080 ms QT Int : 452 ms P-R-T Axes : 074 -11 045 degrees QTc Int : 443 ms SINUS BRADYCARDIA WITH SINUS ARRHYTHMIA WITH OCCASIONAL PREMATURE VENTRICULAR COMPLEXES SEPTAL INFARCT , AGE UNDETERMINED ABNORMAL ECG Confirmed by ARTURO BOYD, LIZA ([id number]) on 03/09/2019 11:34:53 AM Referred By: KAITLIN MENDIOLA Confirmed By:LIZA MORRIS MD
--- NOTE | 2019-03-09 11:43 | EKG ---
Test Reason : Blood Pressure : / mmHG Vent. Rate : 053 BPM Atrial Rate : 053 BPM P-R Int : 148 ms QRS Dur : 082 ms QT Int : 440 ms P-R-T Axes : 058 001 058 degrees QTc Int : 412 ms SINUS BRADYCARDIA WITH PREMATURE ATRIAL COMPLEXES WITH ABERRANT CONDUCTION POSSIBLE LEFT ATRIAL ENLARGEMENT WHEN COMPARED WITH ECG OF 24-NOV-2018 16:22, ABERRANT CONDUCTION IS NOW PRESENT CRITERIA FOR SEPTAL INFARCT ARE NO LONGER PRESENT Confirmed by LIZA MORRIS MD ([id number]) on 03/09/2019 11:43:43 AM Referred By: Confirmed By:LIZA MORRIS MD
--- NOTE | 2019-03-09 12:31 | PN ---
Progress Note, Physician History of Present Illness: Pt seen and examined at bedside. He had the paracentesis done. - Current Medication List Current Medications: Active Medications Albuterol Sulfate (Ventolin 0.083% Nebulizer Soln -) 1 amp NEB Q4H PRN PRN Reason: SHORT OF BREATH/WHEEZING Budesonide/Formoterol Fumarate (Symbicort 160/4.5mcg -) 2 puff IH BID [facility] Last Admin: 03/09/19 09:19 Dose: 2 puff Furosemide (Lasix -) 40 mg PO DAILY [facility] Last Admin: 03/09/19 09:19 Dose: 40 mg Levetiracetam (Keppra -) 500 mg PO BID [facility] Last Admin: 03/09/19 09:19 Dose: 500 mg Spironolactone (Aldactone -) 50 mg PO DAILY [facility] Last Admin: 03/09/19 09:19 Dose: 50 mg Tamsulosin HCl (Flomax -) 0.4 mg PO Q12H [facility] Last Admin: 03/09/19 09:19 Dose: 0.4 mg - Objective Vital Signs: Vital Signs Temperature 98.3 F 03/09/19 10:00 Pulse Rate 61 03/09/19 10:00 Respiratory Rate 16 03/09/19 10:00 Blood Pressure 129/62 03/09/19 10:00 O2 Sat by Pulse Oximetry (%) 100 03/09/19 09:00 Constitutional: Yes: Calm Eyes: Yes: Conjunctiva Clear HENT: Yes: Atraumatic Neck: Yes: Supple Cardiovascular: Yes: S1, S2 Respiratory: Yes: CTA Bilaterally Gastrointestinal: Yes: Soft, Ascites Genitourinary: Yes: WNL Musculoskeletal: Yes: WNL Edema: Yes Edema: LLE: 1+, RLE: 1+ Neurological: Yes: Oriented Psychiatric: Yes: Oriented Labs: CBC, BMP 03/09/19 06:42 03/09/19 06:42 INR, PTT INR 1.11 (0.83-1.09) H 03/08/19 14:25 Problem List - Problems (1) Abdominal pain Code(s): R10.9 - UNSPECIFIED ABDOMINAL PAIN (2) CKD (chronic kidney disease) Code(s): N18.9 - CHRONIC KIDNEY DISEASE, UNSPECIFIED (3) Cirrhosis Code(s): K74.60 - UNSPECIFIED CIRRHOSIS OF LIVER Qualifiers: Assessment/Plan Current Medications Generic Name Dose Route Start Last Admin Trade Name Freq PRN Reason Stop Dose Admin Albuterol Sulfate 1 amp 03/08/19 22:53 Ventolin 0.083% Nebulizer Soln - NEB Q4H PRN SHORT OF BREATH/WHEEZING Budesonide/Formoterol Fumarate 2 puff 03/09/19 10:00 03/09/19 09:19 Symbicort 160/4.5mcg - IH 2 puff BID [facility] Administration Furosemide 40 mg 03/09/19 10:00 03/09/19 09:19 Lasix - PO 40 mg DAILY [facility] Administration Levetiracetam 500 mg 03/09/19 10:00 03/09/19 09:19 Keppra - PO 500 mg BID [facility] Administration Spironolactone 50 mg 03/09/19 10:00 03/09/19 09:19 Aldactone - PO 50 mg DAILY [facility] Administration Tamsulosin HCl 0.4 mg 03/09/19 08:30 03/09/19 09:19 Flomax - PO 0.4 mg Q12H [facility] Administration Laboratory Tests 03/09/19 06:50 Urine Protein Negative Urine Blood Negative Impression 1. CKD 2. Hep C 3. liver cirrhosis 4. ascites 5. epilepsy 6. substance abuse 7. hx of lobectomy 8. diarrhea 9. abd pain Plan - renal function is improving - cont diuretics - 2 gram sodium diet - will see in office - ua neg for blood or protein - avoid nsaids
[2019-03-09 14:11] LABS: BF WBC & OTHER NUCLEATED CELLS 178 /mm3
--- NOTE | 2019-03-09 14:46 | PN ---
Physical Exam: SUBJECTIVE: Patient seen and examined at bedside. Pt states that he has abdominal pain which feels like pressure that radiates to his back. OBJECTIVE: Vital Signs Period Temp Pulse Resp BP Sys/Eisenberg Pulse Ox Last 24 Hr 97.8 F-98.3 F 61-66 16-18 107-158/51-88 100-100 GENERAL: The patient is awake, alert, and fully oriented, in no acute distress. LUNGS: Breath sounds equal, clear to auscultation bilaterally, no wheezes, no crackles, no accessory muscle use. HEART: Regular rate and rhythm, S1, S2 without murmur, rub or gallop. ABDOMEN: diffusely tender more on lower quadrants, mildly distended, normoactive bowel sounds, no guarding, no rebound, + hepatomegaly EXTREMITIES: 2+ pulses, warm, well-perfused, no edema. SKIN: Warm, dry, normal turgor, no rashes or lesions noted Laboratory Last Values WBC 4.4 K/mm3 (4.0-10.0) 03/09/19 06:42 RBC 3.49 M/mm3 (4.00-5.60) L 03/09/19 06:42 Hgb 10.3 GM/dL (11.7-16.9) L 03/09/19 06:42 Hct 31.2 % (35.4-49) L 03/09/19 06:42 MCV 89.3 fl (80-96) 03/09/19 06:42 MCH 29.6 pg (25.7-33.7) 03/09/19 06:42 MCHC 33.1 g/dl (32.0-35.9) 03/09/19 06:42 RDW 16.5 % (11.9-15.9) H 03/09/19 06:42 Plt Count 75 K/MM3 (134-434) L 03/09/19 06:42 MPV 9.4 fl (7.5-11.1) 03/09/19 06:42 Absolute Neuts (auto) 2.4 K/mm3 (1.5-8.0) 03/09/19 06:42 Neutrophils % 54.0 % (42.8-82.8) 03/09/19 06:42 Lymphocytes % 21.2 % (8-40) 03/09/19 06:42 Monocytes % 18.1 % (3.8-10.2) H 03/09/19 06:42 Eosinophils % 5.3 % (0-4.5) H 03/09/19 06:42 Basophils % 1.4 % (0-2.0) 03/09/19 06:42 Nucleated RBC % 0 % (0-0) 03/09/19 06:42 PT with INR 13.10 SEC (9.7-13.0) H 03/08/19 14:25 INR 1.11 (0.83-1.09) H 03/08/19 14:25 PTT (Actin FS) 39.2 SECONDS (25.2-36.5) H 03/08/19 14:25 Sodium 147 mmol/L (136-145) H 03/09/19 06:42 Potassium 4.1 mmol/L (3.5-5.1) 03/09/19 06:42 Chloride 114 mmol/L (98-107) H 03/09/19 06:42 Carbon Dioxide 27 mmol/L (21-32) 03/09/19 06:42 Anion Gap 7 MMOL/L (8-16) L 03/09/19 06:42 BUN 20.3 mg/dL (7-18) H 03/09/19 06:42 Creatinine 1.8 mg/dL (0.55-1.3) H 03/09/19 06:42 Est GFR (CKD-EPI)AfAm 44.78 03/09/19 06:42 Est GFR (CKD-EPI)NonAf 38.63 03/09/19 06:42 Random Glucose 79 mg/dL (74-106) 03/09/19 06:42 Calcium 8.2 mg/dL (8.5-10.1) L 03/09/19 06:42 Phosphorus 3.4 mg/dL (2.5-4.9) 03/09/19 06:42 Magnesium 2.1 mg/dL (1.8-2.4) 03/09/19 06:42 Total Bilirubin 0.9 mg/dL (0.2-1) 03/09/19 06:42 AST 40 U/L (15-37) H 03/09/19 06:42 ALT 25 U/L (13-61) 03/09/19 06:42 Alkaline Phosphatase 161 U/L (45-117) H 03/09/19 06:42 Troponin I < 0.02 ng/ml (0.00-0.05) 03/08/19 14:25 Total Protein 6.1 g/dl (6.4-8.2) L 03/09/19 06:42 Albumin 2.2 g/dl (3.4-5.0) L 03/09/19 06:42 Urine Color Yellow 03/09/19 06:50 Urine Appearance Clear 03/09/19 06:50 Urine pH 5.5 (5.0-8.0) 03/09/19 06:50 Ur Specific [place] 1.015 (1.010-1.035) 03/09/19 06:50 Urine Protein Negative (NEGATIVE) 03/09/19 06:50 Urine Glucose (UA) Negative (NEGATIVE) 03/09/19 06:50 Urine Ketones Negative (NEGATIVE) 03/09/19 06:50 Urine Blood Negative (NEGATIVE) 03/09/19 06:50 Urine Nitrite Negative (NEGATIVE) 03/09/19 06:50 Urine Bilirubin Negative (NEGATIVE) 03/09/19 06:50 Urine Urobilinogen 1.0 mg/dL (0.2-1.0) 03/09/19 06:50 Ur Leukocyte Esterase Trace (NEGATIVE) 03/09/19 06:50 Fluid Source Ascites 03/09/19 10:11 Fluid WBC 178 /mm3 03/09/19 10:11 Fluid RBC 191 /mm3 03/09/19 10:11 Current Medications Albuterol Sulfate (Ventolin 0.083% Nebulizer Soln -) 1 amp NEB Q4H PRN PRN Reason: SHORT OF BREATH/WHEEZING Budesonide/Formoterol Fumarate (Symbicort 160/4.5mcg -) 2 puff IH BID [facility] Last Admin: 03/09/19 09:19 Dose: 2 puff Furosemide (Lasix -) 40 mg PO DAILY [facility] Last Admin: 03/09/19 09:19 Dose: 40 mg Levetiracetam (Keppra -) 500 mg PO BID [facility] Last Admin: 03/09/19 09:19 Dose: 500 mg Spironolactone (Aldactone -) 50 mg PO DAILY [facility] Last Admin: 03/09/19 09:19 Dose: 50 mg Tamsulosin HCl (Flomax -) 0.4 mg PO Q12H [facility] Last Admin: 03/09/19 09:19 Dose: 0.4 mg ASSESSMENT/PLAN: 64 yo M with PMH of HTN, HCV (s/p treatment), liver CA (s/p resection 12/2018), epilepsy, and COPD who presents p/w diffuse abdominal pain and distention for one week. Ascites - pt recently had liver resection at [facility] -CT abdomen/pelvis reviewed, results above -Paracentisis, r/o SBP, awaiting cultures -GI following -f/u w/ Hepatology Dr. Ly -Morphine 2mg prn for pain Acute on Chronic renal disease -BUN/Cr: -Nephrology recommendations appreciated -Avoid nephrotoxic agents Normocytic anemia, likely 2/2 chronic disease -H/H stable -no evidence of acute bleed -FOBT negative -continue to monitor Liver disease -c/w home spironolactone 50mg daily and lasix 40mg daily Thrombocytopenia -likely 2/2 Liver disease HTN -c/w home meds Bradicardia -on EKG -new onset Epilepsy -c/w home keppra 500mg BID COPD -C/w symbicort, albuterol F/E/N -low sodium diet -restrict 2 g sodium daily DVT ppx -SCDs Dispo -continue to monitor on med-surg Visit type - Emergency Visit Emergency Visit: No - New Patient This patient is new to me today: Yes Date on this admission: 03/09/19 - Critical Care Critical Care patient: No - Discharge Referral Referred to [facility] Med P.C.: Yes Physician Referral: Alexis Alonzo DO (GI) ATTENDING PHYSICIAN STATEMENT I saw and evaluated the patient. I reviewed the resident's note and discussed the case with the resident. I agree with the resident's findings and plan as documented. SUBJECTIVE: OBJECTIVE: ASSESSMENT AND PLAN:
--- NOTE | 2019-03-09 15:33 | PN.GI ---
GI Progress Note Subjective: No focal complaints. resting comfortably s/p 2 L paracentesis - Objective Vital Signs: Vital Signs Temperature 98.3 F 03/09/19 10:00 Pulse Rate 61 03/09/19 10:00 Respiratory Rate 16 03/09/19 10:00 Blood Pressure 129/62 03/09/19 10:00 O2 Sat by Pulse Oximetry (%) 100 03/09/19 09:00 Constitutional: Calm Eyes: No: Sclera Icterus Cardiovascular: Yes: Regular Rate and Rhythm, Murmur Respiratory: Yes: CTA Bilaterally Gastrointestinal Inspection: Yes: Distention (softly distended), Scars ...Auscultate: Yes: Normoactive Bowel Sounds ...Palpate: Yes: Soft. No: Splenomegaly, Tenderness ...Percussion: No: Tympanitic Edema: No (No LE edema) Neurological: Yes: Alert Labs: CBC, BMP 03/09/19 06:42 03/09/19 06:42 INR, PTT INR 1.11 (0.83-1.09) H 03/08/19 14:25 Problem List - Problems (1) Ascites Assessment/Plan: Follow-up fluid analysis. So far WBC < 200. No suggestive of SBP 2g sodium controlled diet Renal following re: renal insufficiency / diuresis Arrange f/u w/ fire control technician b Dr. Ly Code(s): R18.8 - OTHER ASCITES
[2019-03-09 16:03] LABS: EPI CELLS 2.4 /HPF (0-5/HPF); HYALINE CASTS 5.25 /lpf (0-8); URINE BACTERIA 10.7 /hpf (NEGATIVE); URINE WBC 6.6 /hpf (0-5)
[2019-03-09 16:05] LABS: BODY FLUID MONOCYTE 7 %; BODYL FLD EOSINOPHIL 1 %
[2019-03-09 16:06] LABS: BODY FLUID BASOPHIL 0 %; BODY FLUID MACROPHAGES 14 %; BODY FLUID MESOTHELIAL 27 %; BODY FLUID PLASMA CELL 1 %
--- NOTE | 2019-03-09 18:13 | PN ---
Teaching Attending Note Name of Resident: Krysta Gates ATTENDING PHYSICIAN STATEMENT I saw and evaluated the patient. I reviewed the resident's note and discussed the case with the resident. I agree with the resident's findings and plan as documented. SUBJECTIVE: Abdominal pain resolving. No chest pain/palpitations/SOB. No fever/ chills. OBJECTIVE: Afebrile, Hemodynamically Stable. Last Vital Signs Temp Pulse Resp BP Pulse Ox 98.7 F 56 L 18 115/58 L 100 03/09/19 17:17 03/09/19 17:17 03/09/19 17:17 03/09/19 17:17 03/09/19 09:00 HEENT - Atraumatic, Normocephalic Heart - S1, S2, RRR Lungs - Clear to auscultation Abdomen - soft s/p paracentesis. Soft, non-tender. Extremities - No edema, no calf tenderness. Neuro - AAO x 3. Tone/Power normal all 4 extremities. Laboratory Results - last 24 hr 03/08/19 03/09/19 03/09/19 19:00 06:42 06:42 WBC 4.4 RBC 3.49 L Hgb 10.3 L Hct 31.2 L MCV 89.3 MCH 29.6 MCHC 33.1 RDW 16.5 H Plt Count 75 L MPV 9.4 Absolute Neuts (auto) 2.4 Neutrophils % 54.0 Lymphocytes % 21.2 Monocytes % 18.1 H Eosinophils % 5.3 H Basophils % 1.4 Nucleated RBC % 0 Sodium 147 H Potassium 4.1 Chloride 114 H Carbon Dioxide 27 Anion Gap 7 L BUN 20.3 H Creatinine 1.8 H Est GFR (CKD-EPI)AfAm 44.78 Est GFR (CKD-EPI)NonAf 38.63 Random Glucose 79 Calcium 8.2 L Phosphorus 3.4 Magnesium 2.1 Total Bilirubin 0.9 AST 40 H ALT 25 Alkaline Phosphatase 161 H Total Protein 6.1 L Albumin 2.2 L Urine Color Yellow Urine Appearance Clear Urine pH 5.0 Ur Specific [place] 1.013 Urine Protein Negative Urine Glucose (UA) Negative Urine Ketones Negative Urine Blood Negative Urine Nitrite Negative Urine Bilirubin Negative Urine Urobilinogen 0.2 Ur Leukocyte Esterase Negative Urine WBC (Auto) Urine RBC (Auto) Urine Casts (Auto) U Epithel Cells (Auto) Urine Bacteria (Auto) Fluid Source Fluid WBC Fluid RBC Fluid Neutrophils Fluid Lymphocytes Pleural Monocytes Pleural Eosinophils Pleural Basophils Pleural Plasma Cells Pleural Macrophages Pleural Mesothelial 03/09/19 03/09/19 06:50 10:11 WBC RBC Hgb Hct MCV MCH MCHC RDW Plt Count MPV Absolute Neuts (auto) Neutrophils % Lymphocytes % Monocytes % Eosinophils % Basophils % Nucleated RBC % Sodium Potassium Chloride Carbon Dioxide Anion Gap BUN Creatinine Est GFR (CKD-EPI)AfAm Est GFR (CKD-EPI)NonAf Random Glucose Calcium Phosphorus Magnesium Total Bilirubin AST ALT Alkaline Phosphatase Total Protein Albumin Urine Color Yellow Urine Appearance Clear Urine pH 5.5 Ur Specific [place] 1.015 Urine Protein Negative Urine Glucose (UA) Negative Urine Ketones Negative Urine Blood Negative Urine Nitrite Negative Urine Bilirubin Negative Urine Urobilinogen 1.0 Ur Leukocyte Esterase Trace Urine WBC (Auto) 6.6 Urine RBC (Auto) 1.0 Urine Casts (Auto) 5.25 U Epithel Cells (Auto) 2.4 Urine Bacteria (Auto) 10.7 Fluid Source Ascites Fluid WBC 178 Fluid RBC 191 Fluid Neutrophils 21 Fluid Lymphocytes 30 Pleural Monocytes 7 Pleural Eosinophils 1 Pleural Basophils 0 Pleural Plasma Cells 1 Pleural Macrophages 14 Pleural Mesothelial 27 Current Medications Generic Name Dose Route Start Last Admin Trade Name Freq PRN Reason Stop Dose Admin Albuterol Sulfate 1 amp 03/08/19 22:53 Ventolin 0.083% Nebulizer Soln - NEB Q4H PRN SHORT OF BREATH/WHEEZING Budesonide/Formoterol Fumarate 2 puff 03/09/19 10:00 03/09/19 09:19 Symbicort 160/4.5mcg - IH 2 puff BID PIERO Administration Furosemide 40 mg 03/09/19 10:00 03/09/19 09:19 Lasix - PO 40 mg DAILY PIERO Administration Levetiracetam 500 mg 03/09/19 10:00 03/09/19 09:19 Keppra - PO 500 mg BID PIERO Administration Spironolactone 50 mg 03/09/19 10:00 03/09/19 09:19 Aldactone - PO 50 mg DAILY PIERO Administration Tamsulosin HCl 0.4 mg 03/09/19 08:30 03/09/19 09:19 Flomax - PO 0.4 mg Q12H PIERO Administration Home Medications Medication Instructions Recorded Folic Acid 1 mg PO DAILY 11/29/16 levETIRAcetam [Keppra -] 500 mg PO BID tablet 12/06/16 Oxybutynin Chloride [Oxybutynin 10 mg PO DAILY 11/16/17 Chloride ER] Ropinirole HCl [Requip] 0.25 mg PO DAILY 11/16/17 Tamsulosin HCl [Flomax -] 0.4 mg PO DAILY 11/16/17 Spironolactone [Aldactone -] 50 mg PO DAILY #30 tablet 02/03/18 Furosemide [Lasix] 40 mg PO DAILY #30 tablet 02/07/18 Multivitamin with Iron 1 each PO DAILY 04/27/18 [Multivitamins with Iron] Pantoprazole Sodium [Protonix -] 40 mg PO DAILY 04/27/18 Melatonin 5 mg PO HS PRN tab 04/28/18 Budesonide/Formeterol Fumarate 1 inh PO BID 06/20/18 [SYMBICORT 160/4.5mcg -] Lactulose 20 gm PO TID 06/20/18 Lipase/Protease/Amylase [Creon Dr 36,000 unit PO DAILY 06/20/18 36,000 Units Capsule] Xalatan 0.005% Eye Drops - 1 drop OU DAILY 06/20/18 Albuterol 0.083% Nebulizer Belen 1 amp IH Q4H PRN 11/24/18 [Ventolin 0.083% Nebulizer Soln -] Gabapentin 300 mg PO BID 11/24/18 levoFLOXacin [Levaquin] 750 mg PO DAILY 7 Days #7 tab 11/28/18 Hydralazine HCl 10 mg PO Q8H 03/09/19 Spironolactone 25 mg PO DAILY 03/09/19 Tramadol HCl 50 mg PO BID 03/09/19 traZODone HCL [Trazodone HCl] 25 mg PO DAILY 03/09/19 ASSESSMENT/PLAN: 64 year old male with history of HTN, CKD 3, COPD, CBP, HCV (s/p treatment), Liver Cirrhosis, Hx Liver Ca s/p left lobe resection 01/10 at [facility]), remote alcohol/drug abuse presents with 1 week of generalized abdominal pain associated with watery diarrhea and bloating. 1. Non-specific Abdominal Pain CT abdomen/pelvis - moderate to large ascites, otherwise unremarkable. s/p Ascitic tap to exclude SBP and for therapeutic relief. 2L drained. Cell count not indicative of SBP 2. Liver Cirrhosis/Hx Liver Ca s/p resection/Hx HepC (treated) - with secondary portal HTN s/p diagnostic/therapeutic tap Contiunue Spironolactone, Lasix. Resume Lactulose once watery stool resolves. 3. CKD 3 - Stable 4. HTN - continue Spironolactone/hydralazine 5. Normocytic Anemia, likely sec to CKD/cirrhosis - iron work-up requested. 6. BPH - continue Flomax 7. Thrombocytopenia - sec to Cirrhosis. No bleeding/bruising. DVT Px - Heparin SQ
[2019-03-09 20:45] LABS: IRON SERUM 51 ug/dL (50-175); TOTAL IRON BINDING CAPACITY 190 ug/dL (250-450)
[2019-03-09] MEDS: hydrALAZINE HCL 10 MG TABLET PO SCH (21:20)
[2019-03-09] MEDS: GABAPENTIN 300 MG CAPSULE (FP) PO SCH (21:20)
[2019-03-09] MEDS ORDERED: ACETAMINOPHEN 325 MG TABLET (FP) PO ONE (23:03)
[2019-03-09] MEDS: MELATONIN 5 MG TABLETS PO PRN (23:24)
[2019-03-10] MEDS ORDERED: PT OWN MED DRAWER 7, Y5N ONE (02:39)
[2019-03-10] MEDS: LIPASE/PROTEASE/AMYLASE 36,000 UNIT CAPSULE PO SCH ×3 (06:00→16:43)
[2019-03-10] MEDS: hydrALAZINE HCL 10 MG TABLET PO SCH ×3 (06:00→21:18)
[2019-03-10 07:16] LABS: EOS % 2.8 % (0-4.5); HEMATOCRIT 32.1 % (35.4-49); HEMOGLOBIN 10.7 GM/dL (11.7-16.9); LYMPH % 20.6 % (8-40); MCH 29.8 pg (25.7-33.7); MCHC 33.4 g/dl (32.0-35.9); MEAN CELL VOLUME 89.1 fl (80-96); MEAN PLT VOLUME 9.4 fl (7.5-11.1); MONO % 16.1 % (3.8-10.2); NEUT % 59.5 % (42.8-82.8); PLATELET COUNT 68 K/MM3 (134-434); RDW 16.5 % (11.9-15.9)
--- NOTE | 2019-03-10 07:39 | PN.GI ---
GI Progress Note Subjective: S/P PARACENTESIS -- FLUID CHEMISTRY AND CULTURES ARE PENDING RESULTS C/W PRESENT MEDICAL MANAGEMENT 2GM SODIUM DIET AVOID NSAID WILL F/U - Objective Vital Signs: Vital Signs Temperature 98.3 F 03/10/19 06:00 Pulse Rate 55 L 03/10/19 06:00 Respiratory Rate 18 03/10/19 06:00 Blood Pressure 120/72 03/10/19 06:00 O2 Sat by Pulse Oximetry (%) 99 03/09/19 19:51 Labs: CBC, BMP 03/09/19 06:42 INR, PTT INR 1.11 (0.83-1.09) H 03/08/19 14:25
[2019-03-10] MEDS: TAMSULOSIN HCL 0.4 MG CAP PO SCH ×2 (08:47→21:18)
[2019-03-10] MEDS: BUDESONIDE/FORMETEROL FUMARATE 160/4.5 mcg INHALER IH SCH ×2 (09:14→21:17)
[2019-03-10] MEDS: levETIRAcetam 500 MG TABLET (FP) PO SCH ×2 (09:15→21:18)
[2019-03-10] MEDS: rOPINIRole HCL 0.25 MG TABLET PO SCH (09:15)
[2019-03-10] MEDS: GABAPENTIN 300 MG CAPSULE (FP) PO SCH ×2 (09:15→21:18)
[2019-03-10] MEDS: FOLIC ACID 1 MG TABLET (FP) PO SCH (09:15)
[2019-03-10] MEDS: SOLIFENACIN SUCCINATE 5 MG TAB PO SCH (09:15)
[2019-03-10] MEDS: FUROSEMIDE 40 MG TABLET (FP) PO SCH (09:15)
[2019-03-10] MEDS: MULTIVITAMINS THER W-MINERALS COMBO TABLET (FP) PO SCH (09:15)
[2019-03-10] MEDS: SPIRONOLACTONE 25 MG TABLET (FP) PO SCH (09:15)
[2019-03-10] MEDS ORDERED: LIPASE/PROTEASE/AMYLASE 36,000 UNIT CAPSULE PO SCH (10:00)
--- NOTE | 2019-03-10 11:32 | CON.CARD ---
Consult Consult Specialty:: cardio - History of Present Illness Chief Complaint: abnl ekg History of Present Illness: 64 M here with abdominal pain. noted to have large ascites related to known cirrhosis, s/p tap. treated with lasix and spironolactone. had nonspecific ECG changes (qrs vector in lead V2), in absence of chest pain or other ischemic sx's. monitored on tele--frequent PVCs noted pt denies palpitaitons or syncope. no cp, no sob. 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 Cardio/Vascular: Yes: HTN Pulmonary: Yes: COPD Gastrointestinal: Yes: Esophageal Varices (Unclear by his history), GERD Hepatobiliary: Yes: Cirrhosis (with sequelae of hepatic encephalopathy, esophageal varices, HCC ), Hepatitis C Renal/: Yes: Renal Inusuff, BPH - Past Surgical History Additional Surgical History: Resection of HCC - Alcohol/Substance Use Hx Alcohol Use: Yes History of Substance Use: reports: Cocaine (states abstinence for 1 year), Heroin - Smoking History Smoking history: Never smoked Have you smoked in the past 12 months: No Aproximately how many cigarettes per day: 1 If you are a former smoker, when did you quit?: 2017 - Social History Usual Living Arrangement: Alone ADL: Support Services Occupation: not currently working History of Recent Travel: No Home Medications - Allergies Allergies/Adverse Reactions: Allergies Allergy/AdvReac Type Severity Reaction Status Date / Time Penicillins Allergy Unknown Verified 03/08/19 13:02 aspirin AdvReac Intermediate Verified 03/08/19 13:02 - Home Medications Home Medications: Ambulatory Orders Folic Acid 1 mg PO DAILY 11/29/16 levETIRAcetam [Keppra -] 500 mg PO BID tablet 12/06/16 Oxybutynin Chloride [Oxybutynin Chloride ER] 10 mg PO DAILY 11/16/17 Ropinirole HCl [Requip] 0.25 mg PO DAILY 11/16/17 Tamsulosin HCl [Flomax -] 0.4 mg PO DAILY 11/16/17 Spironolactone [Aldactone -] 50 mg PO DAILY #30 tablet 07/13/18 Furosemide [Lasix] 40 mg PO DAILY #30 tablet 02/07/18 Multivitamin with Iron [Multivitamins with Iron] 1 each PO DAILY 04/27/18 Pantoprazole Sodium [Protonix -] 40 mg PO DAILY 04/27/18 Melatonin 5 mg PO HS PRN tab 04/28/18 Budesonide/Formeterol Fumarate [SYMBICORT 160/4.5mcg -] 1 inh PO BID 06/20/18 Lactulose 20 gm PO TID 06/20/18 Lipase/Protease/Amylase [Kwame Curry 36,000 Units Capsule] 36,000 unit PO DAILY Xalatan 0.005% Eye Drops - 1 drop OU DAILY 06/20/18 Albuterol 0.083% Nebulizer Belen [Ventolin 0.083% Nebulizer Soln -] 1 amp IH Q4H PRN 11/24/18 Gabapentin 300 mg PO BID 11/24/18 levoFLOXacin [Levaquin] 750 mg PO DAILY 7 Days #7 tab 11/28/18 Hydralazine HCl 10 mg PO Q8H 03/09/19 Spironolactone 25 mg PO DAILY 03/09/19 Tramadol HCl 50 mg PO BID 03/09/19 traZODone HCL [Trazodone HCl] 25 mg PO DAILY 03/09/19 Family Disease History - Family Disease History Family History: Denies (no known cmp) Other Family History: No family history of colorectal cancer, liver disease Review of Systems - Review of Systems Constitutional: denies: Chills, Fever Eyes: denies: Eye Pain HENT: denies: Nasal Congestion Neck: denies: Stiffness Cardiovascular: denies: Palpitations Respiratory: denies: Orthopnea, PND Gastrointestinal: denies: Diarrhea, Rectal Bleeding Genitourinary: denies: Burning, Hematuria Musculoskeletal: denies: Muscle Pain Integumentary: denies: Rash Neurological: denies: Numbness, Seizure, Syncope Endocrine: denies: Excessive Sweating Hematology/Lymphatic: denies: Excessive Bleeding Vital Signs: Vital Signs Temperature 98.2 F 03/10/19 08:00 Pulse Rate 73 03/10/19 08:00 Respiratory Rate 16 03/10/19 08:00 Blood Pressure 114/63 03/10/19 08:00 O2 Sat by Pulse Oximetry (%) 99 03/10/19 07:31 Constitutional: Yes: Well Nourished, No Distress Eyes: No: Sclera Icterus HENT: No: Nasal Congestion Neck: No: Decreased ROM Respiratory: Yes: CTA Bilaterally. No: Accessory Muscle Use, Rales, Wheezes Gastrointestinal: Yes: Normal Bowel Sounds, Distention. No: Hepatomegaly, Palpable Mass, Tenderness Cardiovascular: Yes: Regular Rate and Rhythm JVD: No Carotid Bruit: No PMI: Non-Displaced Heart Sounds: Yes: S1, S2. No: Gallop Murmur: No: Systolic Murmur, Diastolic Murmur Musculoskeletal: Yes: Other (No kyphosis) Extremities: No: Cool, Cyanosis Edema: No Peripheral Pulses: 2+ Left Carotid, 2+ Right Carotid, 2+ Left Doralis Pedis, 2+ Right Dorsalis Pedis Integumentary: No: Jaundice Neurological: Yes: Alert, Oriented (x3) Psychiatric: No: Agitated - Other Data Labs, Other Data: CBC, BMP 03/10/19 05:35 INR, PTT INR 1.11 (0.83-1.09) H 03/08/19 14:25 Troponin, BNP 03/09/19 19:05 Troponin I < 0.02 Troponin, BNP 03/09/19 19:05 Troponin I < 0.02 Assessment/Plan Echo 12/09: nl LV/EF. no RWMA nl RV. nl LA. trace MR/TR. no RVSP. ECG 03/08: NSR (53 bpm), normal axis/intervals. PVCs. ? old ASMI. no ST-T = similar to prior 12/10 ECG 03/09: NSR (58 bpm). small q wave in V2 in qrs pattern on prior--now QS pattern tele: NSR, freq PVCs. no VT abnl ECG: -chronic findings of q waves in V1/V2 since at least 2018--echo done then with no signs of infarct/scar, normal LV regional and global function = hence this was nonspecific finding -currently with nonspecific change in qrs morphology in V2 (qrs to QS). no sx's of myocardial ischemia--no stress testing warranted -troponin negative x 1 yest--rpt ordered -reasonable to continue tele x 24 hrs, then can d/c if remains stable with no cardiac sx's PVCs: -freq pvc's on tele. no s/sx of ischemia or chf. -echo unrevealing 12/09--will repeat to confirm no structural dz -? related to fluid/electrolyte shifts s/p paracentesis?? -K/Mag have been WNL--routine repletion prn -no BB therapy warranted if echo ok--consider nonspecific BB (e.g. nadolol) for portal HTN if indicated, per GI cirrhosis/ascites, portal HTN -s/p tap -mgmt per GI team HTN: -bp controlled -same meds CKD: -baseline creat 1.5-1.8 -currently stable at baseline
[2019-03-10 11:48] LABS: ALBUMIN 2.7 g/dl (3.4-5.0); ALK PHOS 210 U/L (45-117); ANION GAP 7 MMOL/L (8-16); BLOOD UREA NITROGEN 22.1 mg/dL (7-18); CALCIUM 8.7 mg/dL (8.5-10.1); CHLORIDE 108 mmol/L (98-107); CO2 27 mmol/L (21-32); GLUCOSE,RANDOM 129 mg/dL (74-106); IRON SERUM 81 ug/dL (50-175); MAGNESIUM 2.2 mg/dL (1.8-2.4); PHOSPHOROUS 2.2 mg/dL (2.5-4.9); POTASSIUM 4.2 mmol/L (3.5-5.1); SGOT/AST 47 U/L (15-37); SGPT/ALT 34 U/L (13-61); SODIUM 142 mmol/L (136-145); TOT PROT 7.9 g/dl (6.4-8.2)
--- NOTE | 2019-03-10 12:58 | PN ---
Teaching Attending Note Name of Resident: Ashlyn Gordon ATTENDING PHYSICIAN STATEMENT I saw and evaluated the patient. I reviewed the resident's note and discussed the case with the resident. I agree with the resident's findings and plan as documented. SUBJECTIVE: Abdominal pain resolved. No chest pain/palpitations/SOB. No fever/ chills. No nausea/vomiting/melena/hematochezia OBJECTIVE: Afebrile, Hemodynamically Stable. Last Vital Signs Temp Pulse Resp BP Pulse Ox 98.2 F 73 16 114/63 99 03/10/19 08:00 03/10/19 08:00 03/10/19 08:00 03/10/19 08:00 03/10/19 07:31 Heart - S1, S2, RRR Lungs - Clear to auscultation Abdomen - Soft, non-tender. Bowel Sounds normal. Extremities - No edema, no calf tenderness. Neuro - AAO x 3. Tone/Power normal all 4 extremities. Laboratory Results - last 24 hr 03/09/19 03/09/19 03/09/19 06:50 10:11 19:05 WBC RBC Hgb Hct MCV MCH MCHC RDW Plt Count MPV Absolute Neuts (auto) Neutrophils % Lymphocytes % Monocytes % Eosinophils % Basophils % Nucleated RBC % Sodium Potassium Chloride Carbon Dioxide Anion Gap BUN Creatinine Est GFR (CKD-EPI)AfAm Est GFR (CKD-EPI)NonAf Random Glucose Calcium Phosphorus Magnesium Iron TIBC Iron Saturation Unsaturated IBC Ferritin Total Bilirubin AST ALT Alkaline Phosphatase Troponin I < 0.02 Total Protein Albumin Vitamin B12 Serum Folate Urine WBC (Auto) 6.6 Urine RBC (Auto) 1.0 Urine Casts (Auto) 5.25 U Epithel Cells (Auto) 2.4 Urine Bacteria (Auto) 10.7 Fluid Source Ascites Fluid WBC 178 Fluid RBC 191 Fluid Neutrophils 21 Fluid Lymphocytes 30 Pleural Monocytes 7 Pleural Eosinophils 1 Pleural Basophils 0 Pleural Plasma Cells 1 Pleural Macrophages 14 Pleural Mesothelial 27 03/09/19 03/09/19 03/10/19 19:05 19:05 05:35 WBC 5.0 RBC 3.60 L Hgb 10.7 L Hct 32.1 L MCV 89.1 MCH 29.8 MCHC 33.4 RDW 16.5 H Plt Count 68 L MPV 9.4 Absolute Neuts (auto) 3.0 Neutrophils % 59.5 Lymphocytes % 20.6 Monocytes % 16.1 H Eosinophils % 2.8 Basophils % 1.0 Nucleated RBC % 0 Sodium Potassium Chloride Carbon Dioxide Anion Gap BUN Creatinine Est GFR (CKD-EPI)AfAm Est GFR (CKD-EPI)NonAf Random Glucose Calcium Phosphorus Magnesium Iron 51 TIBC 190 L Iron Saturation 26 Unsaturated IBC 139 L Ferritin Total Bilirubin AST ALT Alkaline Phosphatase Troponin I Total Protein Albumin Vitamin B12 953 Serum Folate 16 Urine WBC (Auto) Urine RBC (Auto) Urine Casts (Auto) U Epithel Cells (Auto) Urine Bacteria (Auto) Fluid Source Fluid WBC Fluid RBC Fluid Neutrophils Fluid Lymphocytes Pleural Monocytes Pleural Eosinophils Pleural Basophils Pleural Plasma Cells Pleural Macrophages Pleural Mesothelial 03/10/19 11:02 WBC RBC Hgb Hct MCV MCH MCHC RDW Plt Count MPV Absolute Neuts (auto) Neutrophils % Lymphocytes % Monocytes % Eosinophils % Basophils % Nucleated RBC % Sodium 142 Potassium 4.2 Chloride 108 H Carbon Dioxide 27 Anion Gap 7 L BUN 22.1 H Creatinine 2.0 H Est GFR (CKD-EPI)AfAm 39.42 Est GFR (CKD-EPI)NonAf 34.01 Random Glucose 129 H Calcium 8.7 Phosphorus 2.2 L Magnesium 2.2 Iron 81 TIBC Iron Saturation Unsaturated IBC Ferritin 57.3 Total Bilirubin 1.0 AST 47 H ALT 34 Alkaline Phosphatase 210 H Troponin I Total Protein 7.9 Albumin 2.7 L Vitamin B12 Serum Folate Urine WBC (Auto) Urine RBC (Auto) Urine Casts (Auto) U Epithel Cells (Auto) Urine Bacteria (Auto) Fluid Source Fluid WBC Fluid RBC Fluid Neutrophils Fluid Lymphocytes Pleural Monocytes Pleural Eosinophils Pleural Basophils Pleural Plasma Cells Pleural Macrophages Pleural Mesothelial Current Medications Generic Name Dose Route Start Last Admin Trade Name Freq PRN Reason Stop Dose Admin Albuterol Sulfate 1 amp 03/08/19 22:53 Ventolin 0.083% Nebulizer Soln - NEB Q4H PRN SHORT OF BREATH/WHEEZING Budesonide/Formoterol Fumarate 2 puff 03/09/19 10:00 03/10/19 09:14 Symbicort 160/4.5mcg - IH 2 puff BID PIERO Administration Folic Acid 1 mg 03/10/19 10:00 03/10/19 09:15 Folic Acid - PO 1 mg DAILY PIERO Administration Furosemide 40 mg 03/09/19 10:00 03/10/19 09:15 Lasix - PO 40 mg DAILY PIERO Administration Gabapentin 300 mg 03/09/19 22:00 03/10/19 09:15 Neurontin - PO 300 mg BID PIERO Administration Hydralazine HCl 10 mg 03/09/19 22:00 03/10/19 06:00 Apresoline - PO 10 mg TID PIERO Administration Levetiracetam 500 mg 03/09/19 10:00 03/10/19 09:15 Keppra - PO 500 mg BID PIERO Administration Melatonin 5 mg 03/09/19 18:17 03/09/19 23:24 Melatonin PO 5 mg HS PRN Administration INSOMNIA Multivitamins/Minerals 1 each 03/10/19 10:00 03/10/19 09:15 Theragran-M PO 1 each DAILY PIERO Administration Pancrelipase 36,000 cap 03/10/19 07:00 03/10/19 11:[address] 36,000 Units Capsule PO 36,000 cap TIDAC PIERO Administration Ropinirole HCl 0.25 mg 03/10/19 10:00 03/10/19 09:15 Requip - PO 0.25 mg DAILY PIERO Administration Solifenacin 5 mg 03/10/19 10:00 03/10/19 09:15 Vesicare - PO 5 mg DAILY PIERO Administration Spironolactone 50 mg 03/09/19 10:00 03/10/19 09:15 Aldactone - PO 50 mg DAILY PIERO Administration Tamsulosin HCl 0.4 mg 03/09/19 08:30 03/10/19 08:47 Flomax - PO 0.4 mg Q12H PIERO Administration Home Medications Medication Instructions Recorded Folic Acid 1 mg PO DAILY 11/29/16 levETIRAcetam [Keppra -] 500 mg PO BID tablet 12/06/16 Oxybutynin Chloride [Oxybutynin 10 mg PO DAILY 11/16/17 Chloride ER] Ropinirole HCl [Requip] 0.25 mg PO DAILY 11/16/17 Tamsulosin HCl [Flomax -] 0.4 mg PO DAILY 11/16/17 Spironolactone [Aldactone -] 50 mg PO DAILY #30 tablet 02/03/18 Furosemide [Lasix] 40 mg PO DAILY #30 tablet 02/07/18 Multivitamin with Iron 1 each PO DAILY 04/27/18 [Multivitamins with Iron] Pantoprazole Sodium [Protonix -] 40 mg PO DAILY 04/27/18 Melatonin 5 mg PO HS PRN tab 04/28/18 Budesonide/Formeterol Fumarate 1 inh PO BID 06/20/18 [SYMBICORT 160/4.5mcg -] Lactulose 20 gm PO TID 06/20/18 Lipase/Protease/Amylase [Kwame Curry 36,000 unit PO DAILY 06/20/18 36,000 Units Capsule] Xalatan 0.005% Eye Drops - 1 drop OU DAILY 06/20/18 Albuterol 0.083% Nebulizer Belen 1 amp IH Q4H PRN 11/24/18 [Ventolin 0.083% Nebulizer Soln -] Gabapentin 300 mg PO BID 11/24/18 levoFLOXacin [Levaquin] 750 mg PO DAILY 7 Days #7 tab 11/28/18 Hydralazine HCl 10 mg PO Q8H 03/09/19 Spironolactone 25 mg PO DAILY 03/09/19 Tramadol HCl 50 mg PO BID 03/09/19 traZODone HCL [Trazodone HCl] 25 mg PO DAILY 03/09/19 ASSESSMENT/PLAN: 64 year old male with history of HTN, CKD 3, COPD, CBP, HCV (s/p treatment), Liver Cirrhosis, Hx Liver Ca s/p left lobe resection 01/10 at [facility]), remote alcohol/drug abuse presents with 1 week of generalized abdominal pain associated with watery diarrhea and bloating. 1. Non-specific Abdominal Pain CT abdomen/pelvis - moderate to large ascites, otherwise unremarkable. s/p Ascitic tap to exclude SBP and for therapeutic relief. 2L drained. Cell count not indicative of SBP 2. Liver Cirrhosis/Hx Liver Ca s/p resection/Hx HepC (treated) - with secondary portal HTN s/p diagnostic/therapeutic tap Continue Spironolactone, Lasix. Resume Lactulose. GI to consider introducing nadolol as out-patient. Follow up with [employer] Dr. Ly. 3. CKD 3 - Stable 4. HTN - continue Spironolactone/hydralazine 5. Normocytic Anemia, likely sec to CKD/Cirrhosis - Iron/Folate/B12 levels normal. Outpatient Nephrology follow up. 6. BPH - continue Flomax 7. Thrombocytopenia - sec to Cirrhosis. No bleeding/bruising. 8. Abnormal ECG - Q waves in V1/2 - TropI neg. No CP. Freq PVCs on tele. Cardiology evaluated - normal LV function on Echo 12/09, no symptoms of ischemia , no stress test indicated. 9. Hypophosphatemia - will replete 10. Seizure Disorder - Continue Keppra. DVT Px - Heparin SQ held due to thrombocytopenia Dispo - stable for discharge after 24 hours of tele.
[2019-03-10] MEDS ORDERED: ALBUTEROL SO4 0.083% IH SOL 2.5 MG/3 ML VIAL.NEB. NEB PRN (19:26)
[2019-03-11] MEDS: MELATONIN 5 MG TABLETS PO PRN (02:14)
[2019-03-11] MEDS ORDERED: MORPHINE SULFATE 2 MG/ML VIAL IVPUSH ONE (02:24)
--- NOTE | 2019-03-11 03:25 | PN ---
Physical Exam: SUBJECTIVE: Patient seen and examined at bedside. No acute events overnight. Frequent PVCs noted on tele. Patient denies fever, chills, chest pain, SOB, abdominal pain, diarrhea, urinary symptoms. OBJECTIVE: Vital Signs Temperature 98.5 F 03/11/19 01:55 Pulse Rate 80 03/11/19 01:55 Respiratory Rate 18 03/11/19 01:55 Blood Pressure 132/75 03/11/19 01:55 O2 Sat by Pulse Oximetry (%) 96 03/10/19 21:00 GENERAL: The patient is awake, alert, and fully oriented, in no acute distress. ENT: moist mucous membranes. NECK: Trachea midline, full range of motion, supple. LUNGS: Breath sounds equal, clear to auscultation bilaterally. HEART: Regular rate and rhythm, S1, S2 without murmur, rub or gallop. ABDOMEN: Soft, mild tenderness on lower quadrants, normoactive bowel sounds. EXTREMITIES: 2+ pulses, warm, well-perfused, no edema. NEUROLOGICAL: Cranial nerves II through XII grossly intact. Normal speech, gait not observed. PSYCH: Normal mood, normal affect. SKIN: Warm, dry, normal turgor, no rashes or lesions noted Laboratory Results - last 24 hr 03/10/19 03/10/19 05:35 11:02 WBC 5.0 RBC 3.60 L Hgb 10.7 L Hct 32.1 L MCV 89.1 MCH 29.8 MCHC 33.4 RDW 16.5 H Plt Count 68 L MPV 9.4 Absolute Neuts (auto) 3.0 Neutrophils % 59.5 Lymphocytes % 20.6 Monocytes % 16.1 H Eosinophils % 2.8 Basophils % 1.0 Nucleated RBC % 0 Sodium 142 Potassium 4.2 Chloride 108 H Carbon Dioxide 27 Anion Gap 7 L BUN 22.1 H Creatinine 2.0 H Est GFR (CKD-EPI)AfAm 39.42 Est GFR (CKD-EPI)NonAf 34.01 Random Glucose 129 H Calcium 8.7 Phosphorus 2.2 L Magnesium 2.2 Iron 81 Ferritin 57.3 Total Bilirubin 1.0 AST 47 H ALT 34 Alkaline Phosphatase 210 H Troponin I < 0.02 Total Protein 7.9 Albumin 2.7 L Active Medications Generic Name Dose Route Start Last Admin Trade Name Freq PRN Reason Stop Dose Admin Albuterol Sulfate 1 amp 03/10/19 19:26 Ventolin 0.083% Nebulizer Soln - NEB Q4H PRN SHORT OF BREATH/WHEEZING Budesonide/Formoterol Fumarate 2 puff 03/10/19 22:00 03/10/19 21:17 Symbicort 160/4.5mcg - IH 2 puff BID PIERO Administration Folic Acid 1 mg 03/10/19 10:00 03/10/19 09:15 Folic Acid - PO 1 mg DAILY PIERO Administration Furosemide 40 mg 03/11/19 10:00 Lasix - PO DAILY PIERO Gabapentin 300 mg 03/09/19 22:00 03/10/19 21:18 Neurontin - PO 300 mg BID PIERO Administration Hydralazine HCl 10 mg 03/09/19 22:00 03/10/19 21:18 Apresoline - PO 10 mg TID PIERO Administration Levetiracetam 500 mg 03/10/19 22:00 03/10/19 21:18 Keppra - PO 500 mg BID PIERO Administration Melatonin 5 mg 03/09/19 18:17 03/11/19 02:14 Melatonin PO 5 mg HS PRN Administration INSOMNIA Multivitamins/Minerals 1 each 03/10/19 10:00 03/10/19 09:15 Theragran-M PO 1 each DAILY PIERO Administration Pancrelipase 36,000 cap 03/10/19 07:00 03/10/19 16:[address] 36,000 Units Capsule PO 36,000 cap TIDAC PIERO Administration Ropinirole HCl 0.25 mg 03/10/19 10:00 03/10/19 09:15 Requip - PO 0.25 mg DAILY PIERO Administration Solifenacin 5 mg 03/10/19 10:00 03/10/19 09:15 Vesicare - PO 5 mg DAILY PIERO Administration Spironolactone 50 mg 03/11/19 10:00 Aldactone - PO DAILY PIERO Tamsulosin HCl 0.4 mg 03/10/19 20:30 03/10/19 21:18 Flomax - PO 0.4 mg Q12H PIERO Administration ASSESSMENT/PLAN: Patient is a 64 year old male with past medical history of HTN, HCV (s/p treatment), liver CA (s/p resection), epilepsy, and COPD who presented with diffuse abdominal pain and and distention. #Abdominal pain -pt recently had liver resection at [facility] -CT abdomen/pelvis showed moderate to large ascites -s/p paracentesis for diagnosis and therapeutic -initial fluid analysis not indicative of SBP, fluid chemistry and cultures still pending -GI consulted. -Limit diet to 2g sodium daily -To Follow up with Dr. Ly upon discharge -Morphine PRN for pain #Abnromal EKG -Q waves in V1/V2, trop neg x2 -frequent PVCs on tele -Cardiology (Dr. Shelton) consulted. recommendations appreciated. -reasonable to continue tele x 24 hrs, then can d/c if remains stable with no cardiac sx's #CKD -Cr 2.0 today -Nephrology recommendations appreciated -Avoid nephrotoxic agents -will monitor renal function #Normocytic anemia, likely 2/2 chronic disease -H/H stable -no evidence of acute bleed -FOBT negative -continue to monitor #Liver cirrhosis, Hx Liver CA -c/w home spironolactone 50mg daily and lasix 40mg daily #Thrombocytopenia -stable -likely 2/2 Liver disease #HTN -c/w home meds #Epilepsy -c/w home keppra 500mg BID #COPD -C/w symbicort, albuterol #F/E/N -low sodium diet -restrict 2 g sodium daily -Electrolytes wnl,routine bmp monitoring -Not on any standing fluids #DVT ppx -SCDs #Dispo -plan for discharge tomorrow if with with no events on tele overnight. Visit type - Emergency Visit Emergency Visit: Yes ED Registration Date: 03/08/19 Care time: The patient presented to the Emergency Department on the above date and was hospitalized for further evaluation of their emergent condition. - New Patient This patient is new to me today: No - Critical Care Critical Care patient: No ATTENDING PHYSICIAN STATEMENT I saw and evaluated the patient. I reviewed the resident's note and discussed the case with the resident. I agree with the resident's findings and plan as documented. SUBJECTIVE: OBJECTIVE: ASSESSMENT AND PLAN:
[2019-03-11 06:22] VITALS: BP 110/72; PULSE 84
[2019-03-11] MEDS ORDERED: PT OWN MED DRAWER 7, Y5N ONE ×3 (06:45→09:08)
[2019-03-11] MEDS: hydrALAZINE HCL 10 MG TABLET PO SCH ×2 (07:08→13:51)
[2019-03-11] MEDS: LIPASE/PROTEASE/AMYLASE 36,000 UNIT CAPSULE PO SCH ×2 (07:09→11:45)
--- NOTE | 2019-03-11 08:15 | PN.GI ---
GI Progress Note Subjective: NO NEW COMPLAINTS FEELS WELL - Objective Vital Signs: Vital Signs Temperature 98.4 F 03/11/19 06:00 Pulse Rate 84 03/11/19 06:00 Respiratory Rate 18 03/11/19 06:00 Blood Pressure 110/72 03/11/19 06:00 O2 Sat by Pulse Oximetry (%) 96 03/10/19 21:00 Constitutional: Well Nourished, No Distress, Calm Eyes: Yes: WNL HENT: Yes: WNL Neck: Yes: WNL, Supple Cardiovascular: Yes: WNL, Regular Rate and Rhythm Respiratory: Yes: WNL, Regular, CTA Bilaterally Gastrointestinal Inspection: Yes: WNL ...Auscultate: Yes: Normoactive Bowel Sounds Extremities: Yes: WNL Edema: No Labs: CBC, BMP 03/10/19 05:35 03/10/19 11:02 INR, PTT INR 1.11 (0.83-1.09) H 03/08/19 14:25 Problem List - Problems (1) Ascites of liver Assessment/Plan: - C/W LASIX / ALDACTONE - MONITOR WEIGHTS/ CREATININE - 2 GM SODIUM DIET - AVOID NSAID - CULTURES ARE SO FAR NEGATIVE FROM ASCITES FLUID - F/U FINAL RESULTS. - CONSIDER STARTING LACTULOSE TID - TITRATE TO THREE BM QD Code(s): R18.8 - OTHER ASCITES
[2019-03-11] MEDS: TAMSULOSIN HCL 0.4 MG CAP PO SCH (08:44)
[2019-03-11] MEDS: GABAPENTIN 300 MG CAPSULE (FP) PO SCH (09:05)
[2019-03-11] MEDS: levETIRAcetam 500 MG TABLET (FP) PO SCH (09:05)
[2019-03-11] MEDS: MULTIVITAMINS THER W-MINERALS COMBO TABLET (FP) PO SCH (09:05)
[2019-03-11] MEDS: FOLIC ACID 1 MG TABLET (FP) PO SCH (09:05)
[2019-03-11] MEDS: SOLIFENACIN SUCCINATE 5 MG TAB PO SCH (09:06)
[2019-03-11] MEDS: rOPINIRole HCL 0.25 MG TABLET PO SCH (09:08)
[2019-03-11] MEDS: BUDESONIDE/FORMETEROL FUMARATE 160/4.5 mcg INHALER IH SCH (09:09)
[2019-03-11] MEDS ORDERED: FUROSEMIDE 40 MG TABLET (FP) PO SCH (10:00)
[2019-03-11] MEDS ORDERED: SPIRONOLACTONE 25 MG TABLET (FP) PO SCH (10:00)
--- NOTE | 2019-03-11 11:18 | PN ---
Progress Note, Physician Chief Complaint: abnl ekg, PVCs History of Present Illness: no cp, sob, palpitations. no abd pain - Current Medication List Current Medications: Active Medications Albuterol Sulfate (Ventolin 0.083% Nebulizer Soln -) 1 amp NEB Q4H PRN PRN Reason: SHORT OF BREATH/WHEEZING Budesonide/Formoterol Fumarate (Symbicort 160/4.5mcg -) 2 puff IH BID [facility] Last Admin: 03/11/19 09:09 Dose: 2 puff Folic Acid (Folic Acid -) 1 mg PO DAILY [facility] Last Admin: 03/11/19 09:05 Dose: 1 mg Furosemide (Lasix -) 40 mg PO DAILY [facility] Last Admin: 03/11/19 09:05 Dose: 40 mg Gabapentin (Neurontin -) 300 mg PO BID [facility] Last Admin: 03/11/19 09:05 Dose: 300 mg Hydralazine HCl (Apresoline -) 10 mg PO TID [facility] Last Admin: 03/11/19 07:08 Dose: 10 mg Levetiracetam (Keppra -) 500 mg PO BID [facility] Last Admin: 03/11/19 09:05 Dose: 500 mg Melatonin (Melatonin) 5 mg PO HS PRN PRN Reason: INSOMNIA Last Admin: 03/11/19 02:14 Dose: 5 mg Multivitamins/Minerals (Theragran-M) 1 each PO DAILY [facility] Last Admin: 03/11/19 09:05 Dose: 1 each Pancrelipase (Creon Dr 36,000 Units Capsule) 36,000 cap PO TIDAC [facility] Last Admin: 03/11/19 07:09 Dose: 36,000 cap Potassium Phos/Sodium Phos (Phos-Nak Packet -) 1 packet PO TID [facility] Stop: 03/12/19 06:01 Ropinirole HCl (Requip -) 0.25 mg PO DAILY [facility] Last Admin: 03/11/19 09:08 Dose: 0.25 mg Solifenacin (Vesicare -) 5 mg PO DAILY [facility] Last Admin: 03/11/19 09:06 Dose: 5 mg Spironolactone (Aldactone -) 50 mg PO DAILY [facility] Last Admin: 03/11/19 09:05 Dose: 50 mg Tamsulosin HCl (Flomax -) 0.4 mg PO Q12H [facility] Last Admin: 03/11/19 08:44 Dose: 0.4 mg - Objective Vital Signs: Vital Signs Temperature 98.4 F 03/11/19 06:00 Pulse Rate 84 03/11/19 06:00 Respiratory Rate 16 03/11/19 08:25 Blood Pressure 110/72 03/11/19 06:00 O2 Sat by Pulse Oximetry (%) 97 03/11/19 08:25 Constitutional: Yes: Well Nourished, No Distress, Calm Cardiovascular: Yes: Regular Rate and Rhythm, S1, S2. No: Gallop, Murmur Respiratory: Yes: Regular, CTA Bilaterally. No: Accessory Muscle Use Gastrointestinal: Yes: Distention Extremities: No: Cold Edema: No Neurological: Yes: Alert, Oriented Psychiatric: No: Agitated Labs: CBC, BMP 03/10/19 05:35 03/10/19 11:02 INR, PTT INR 1.11 (0.83-1.09) H 03/08/19 14:25 Assessment/Plan Echo 12/09: nl LV/EF. no RWMA nl RV. nl LA. trace MR/TR. no RVSP. ECG 03/08: NSR (53 bpm), normal axis/intervals. PVCs. ? old ASMI. no ST-T = similar to prior 12/10 ECG 03/09: NSR (58 bpm). small q wave in V2 in qrs pattern on prior--now QS pattern tele: NSR, PVCs, sinus tach, artifact. no VT abnl ECG: -chronic findings of q waves in V1/V2 since at least 2017--echo done then with no signs of infarct/scar, normal LV regional and global function = hence this was nonspecific finding -currently with nonspecific change in qrs morphology in V2 (qrs to QS). no sx's of myocardial ischemia--no stress testing warranted -troponin negative x 3 here. -tele benign--can d/c -no ischemia w/u indicated in asymptomatic pt PVCs: -freq pvc's on tele. no s/sx of ischemia or chf. -echo unrevealing 12/09--will repeat to confirm no structural dz -? related to fluid/electrolyte shifts s/p paracentesis?? -K/Mag have been WNL--routine repletion prn -no BB therapy warranted if echo ok--consider nonspecific BB (e.g. nadolol) for portal HTN if indicated, per GI cirrhosis/ascites, portal HTN -s/p tap -mgmt per GI team HTN: -bp controlled -same meds CKD: -baseline creat 1.5-1.8 -currently stable at baseline D/C TELEMETRY
--- NOTE | 2019-03-11 13:26 | DS ---
Physical Exam: SUBJECTIVE: Abdominal pain resolved. No chest pain/palpitations/SOB. No fever/ chills. No nausea/vomiting/melena/hematochezia OBJECTIVE: Afebrile, Hemodynamically Stable. Last Vital Signs Temp Pulse Resp BP Pulse Ox 98.4 F 84 16 110/72 97 03/11/19 06:00 03/11/19 06:00 03/11/19 08:25 03/11/19 06:00 03/11/19 08:25 Heart - S1, S2, RRR Lungs - Clear to auscultation Abdomen - Soft, non-tender. Bowel Sounds normal. Extremities - No edema, no calf tenderness. Neuro - AAO x 3. Tone/Power normal all 4 extremities. Laboratory Tests 03/08/19 03/08/19 03/08/19 14:25 14:25 14:25 WBC 5.2 RBC 3.98 L Hgb 11.6 L Hct 36.3 MCV 91.3 MCH 29.1 MCHC 31.9 L RDW 16.9 H Plt Count 93 L D MPV 9.7 Absolute Neuts (auto) 3.0 Neutrophils % 57.8 Lymphocytes % 19.1 Monocytes % 18.6 H Eosinophils % 3.6 Basophils % 0.9 Nucleated RBC % 0 PT with INR 13.10 H INR 1.11 H PTT (Actin FS) 39.2 H Sodium 147 H Potassium 4.5 Chloride 113 H Carbon Dioxide 29 Anion Gap 6 L BUN 23.0 H Creatinine 2.0 H Est GFR (CKD-EPI)AfAm 39.42 Est GFR (CKD-EPI)NonAf 34.01 Random Glucose 101 Calcium 8.8 Phosphorus Magnesium 2.1 Iron TIBC Iron Saturation Unsaturated IBC Ferritin Total Bilirubin 1.1 H AST 55 H ALT 34 Alkaline Phosphatase 242 H Troponin I < 0.02 Total Protein 8.0 Albumin 2.9 L Vitamin B12 Serum Folate Urine Color Urine Appearance Urine pH Ur Specific Blanchard Urine Protein Urine Glucose (UA) Urine Ketones Urine Blood Urine Nitrite Urine Bilirubin Urine Urobilinogen Ur Leukocyte Esterase Urine WBC (Auto) Urine RBC (Auto) Urine Casts (Auto) U Epithel Cells (Auto) Urine Bacteria (Auto) Fluid Source Fluid WBC Fluid RBC Fluid Neutrophils Fluid Lymphocytes Pleural Monocytes Pleural Eosinophils Pleural Basophils Pleural Plasma Cells Pleural Macrophages Pleural Mesothelial 03/08/19 03/08/19 03/09/19 14:25 19:00 06:42 WBC 4.4 RBC 3.49 L Hgb 10.3 L Hct 31.2 L MCV 89.3 MCH 29.6 MCHC 33.1 RDW 16.5 H Plt Count 75 L MPV 9.4 Absolute Neuts (auto) 2.4 Neutrophils % 54.0 Lymphocytes % 21.2 Monocytes % 18.1 H Eosinophils % 5.3 H Basophils % 1.4 Nucleated RBC % 0 PT with INR Cancelled INR Cancelled PTT (Actin FS) Sodium Potassium Chloride Carbon Dioxide Anion Gap BUN Creatinine Est GFR (CKD-EPI)AfAm Est GFR (CKD-EPI)NonAf Random Glucose Calcium Phosphorus Magnesium Iron TIBC Iron Saturation Unsaturated IBC Ferritin Total Bilirubin AST ALT Alkaline Phosphatase Troponin I Total Protein Albumin Vitamin B12 Serum Folate Urine Color Yellow Urine Appearance Clear Urine pH 5.0 Ur Specific Blanchard 1.013 Urine Protein Negative Urine Glucose (UA) Negative Urine Ketones Negative Urine Blood Negative Urine Nitrite Negative Urine Bilirubin Negative Urine Urobilinogen 0.2 Ur Leukocyte Esterase Negative Urine WBC (Auto) Urine RBC (Auto) Urine Casts (Auto) U Epithel Cells (Auto) Urine Bacteria (Auto) Fluid Source Fluid WBC Fluid RBC Fluid Neutrophils Fluid Lymphocytes Pleural Monocytes Pleural Eosinophils Pleural Basophils Pleural Plasma Cells Pleural Macrophages Pleural Mesothelial 03/09/19 03/09/19 03/09/19 06:42 06:50 10:11 WBC RBC Hgb Hct MCV MCH MCHC RDW Plt Count MPV Absolute Neuts (auto) Neutrophils % Lymphocytes % Monocytes % Eosinophils % Basophils % Nucleated RBC % PT with INR INR PTT (Actin FS) Sodium 147 H Potassium 4.1 Chloride 114 H Carbon Dioxide 27 Anion Gap 7 L BUN 20.3 H Creatinine 1.8 H Est GFR (CKD-EPI)AfAm 44.78 Est GFR (CKD-EPI)NonAf 38.63 Random Glucose 79 Calcium 8.2 L Phosphorus 3.4 Magnesium 2.1 Iron TIBC Iron Saturation Unsaturated IBC Ferritin Total Bilirubin 0.9 AST 40 H ALT 25 Alkaline Phosphatase 161 H Troponin I Total Protein 6.1 L Albumin 2.2 L Vitamin B12 Serum Folate Urine Color Yellow Urine Appearance Clear Urine pH 5.5 Ur Specific Blanchard 1.015 Urine Protein Negative Urine Glucose (UA) Negative Urine Ketones Negative Urine Blood Negative Urine Nitrite Negative Urine Bilirubin Negative Urine Urobilinogen 1.0 Ur Leukocyte Esterase Trace Urine WBC (Auto) 6.6 Urine RBC (Auto) 1.0 Urine Casts (Auto) 5.25 U Epithel Cells (Auto) 2.4 Urine Bacteria (Auto) 10.7 Fluid Source Ascites Fluid WBC 178 Fluid RBC 191 Fluid Neutrophils 21 Fluid Lymphocytes 30 Pleural Monocytes 7 Pleural Eosinophils 1 Pleural Basophils 0 Pleural Plasma Cells 1 Pleural Macrophages 14 Pleural Mesothelial 27 03/09/19 03/09/19 03/09/19 19:05 19:05 19:05 WBC RBC Hgb Hct MCV MCH MCHC RDW Plt Count MPV Absolute Neuts (auto) Neutrophils % Lymphocytes % Monocytes % Eosinophils % Basophils % Nucleated RBC % PT with INR INR PTT (Actin FS) Sodium Potassium Chloride Carbon Dioxide Anion Gap BUN Creatinine Est GFR (CKD-EPI)AfAm Est GFR (CKD-EPI)NonAf Random Glucose Calcium Phosphorus Magnesium Iron 51 TIBC 190 L Iron Saturation 26 Unsaturated IBC 139 L Ferritin Total Bilirubin AST ALT Alkaline Phosphatase Troponin I < 0.02 Total Protein Albumin Vitamin B12 953 Serum Folate 16 Urine Color Urine Appearance Urine pH Ur Specific Blanchard Urine Protein Urine Glucose (UA) Urine Ketones Urine Blood Urine Nitrite Urine Bilirubin Urine Urobilinogen Ur Leukocyte Esterase Urine WBC (Auto) Urine RBC (Auto) Urine Casts (Auto) U Epithel Cells (Auto) Urine Bacteria (Auto) Fluid Source Fluid WBC Fluid RBC Fluid Neutrophils Fluid Lymphocytes Pleural Monocytes Pleural Eosinophils Pleural Basophils Pleural Plasma Cells Pleural Macrophages Pleural Mesothelial 03/10/19 03/10/19 05:35 11:02 WBC 5.0 RBC 3.60 L Hgb 10.7 L Hct 32.1 L MCV 89.1 MCH 29.8 MCHC 33.4 RDW 16.5 H Plt Count 68 L MPV 9.4 Absolute Neuts (auto) 3.0 Neutrophils % 59.5 Lymphocytes % 20.6 Monocytes % 16.1 H Eosinophils % 2.8 Basophils % 1.0 Nucleated RBC % 0 PT with INR INR PTT (Actin FS) Sodium 142 Potassium 4.2 Chloride 108 H Carbon Dioxide 27 Anion Gap 7 L BUN 22.1 H Creatinine 2.0 H Est GFR (CKD-EPI)AfAm 39.42 Est GFR (CKD-EPI)NonAf 34.01 Random Glucose 129 H Calcium 8.7 Phosphorus 2.2 L Magnesium 2.2 Iron 81 TIBC Iron Saturation Unsaturated IBC Ferritin 57.3 Total Bilirubin 1.0 AST 47 H ALT 34 Alkaline Phosphatase 210 H Troponin I < 0.02 Total Protein 7.9 Albumin 2.7 L Vitamin B12 Serum Folate Urine Color Urine Appearance Urine pH Ur Specific Blanchard Urine Protein Urine Glucose (UA) Urine Ketones Urine Blood Urine Nitrite Urine Bilirubin Urine Urobilinogen Ur Leukocyte Esterase Urine WBC (Auto) Urine RBC (Auto) Urine Casts (Auto) U Epithel Cells (Auto) Urine Bacteria (Auto) Fluid Source Fluid WBC Fluid RBC Fluid Neutrophils Fluid Lymphocytes Pleural Monocytes Pleural Eosinophils Pleural Basophils Pleural Plasma Cells Pleural Macrophages Pleural Mesothelial Discharge Medications Medication Instructions Recorded levETIRAcetam [Keppra -] 500 mg PO BID tablet 12/06/16 Tamsulosin HCl [Flomax -] 0.4 mg PO DAILY 11/16/17 Furosemide [Lasix] 40 mg PO DAILY #30 tablet 02/07/18 Multivitamin with Iron 1 each PO DAILY 04/27/18 [Multivitamins with Iron] Pantoprazole Sodium [Protonix -] 40 mg PO DAILY 04/27/18 Budesonide/Formeterol Fumarate 1 inh PO BID 06/20/18 [SYMBICORT 160/4.5mcg -] Xalatan 0.005% Eye Drops - 1 drop OU DAILY 06/20/18 Albuterol 0.083% Nebulizer Belen 1 amp IH Q4H PRN 11/24/18 [Ventolin 0.083% Nebulizer Soln -] Gabapentin 300 mg PO BID 11/24/18 Hydralazine HCl 10 mg PO Q8H 03/09/19 Tramadol HCl 50 mg PO BID 03/09/19 traZODone HCL [Trazodone HCl] 25 mg PO DAILY 03/09/19 Lipase/Protease/Amylase [Creon Dr 1 cap PO DAILY capsule.dr 03/10/19 36,000 Units Capsule] Melatonin 5 mg PO HS PRN tab 03/10/19 Ropinirole HCl [Requip -] 0.25 mg PO DAILY tablet 03/10/19 Folic Acid - 1 mg PO DAILY tablet 03/11/19 Spironolactone [Aldactone -] 50 mg PO DAILY 30 Days #60 tablet 03/11/19 Date of Admission:03/08/19 Date of Discharge: 03/11/19 Minutes to complete discharge: 40 Discharge Summary Reason For Visit: ASCITES,ABDOMINAL PAIN,HYPERTENSION Hospital Course: 64 year old male with history of HTN, CKD 3, COPD, CBP, HCV (s/p treatment), Liver Cirrhosis, Hx Liver Ca s/p left lobe resection 01/[address] [facility]), remote alcohol/drug abuse presents with 1 week of generalized abdominal pain associated with watery diarrhea and bloating. Symptoms have now resolved s/p therapeutic paracentesis of 2L. He remained stable post-procedure and is tolerating oral intake and is currently medically stable for discharge. 1. Non-specific Abdominal Pain - secondary to ascitic distension - resolved. CT abdomen/pelvis - moderate to large ascites, otherwise unremarkable. s/p Ascitic tap to exclude SBP and for therapeutic relief. 2L drained. Cell count not indicative of SBP remains Afebrile and hemodynamically stable Medicaly optimized for discharge. 2. Liver Cirrhosis/Hx Liver Ca s/p resection/Hx HepC (treated) - with secondary portal HTN s/p diagnostic/therapeutic tap Continue Spironolactone, Lasix. Resumed on Lactulose. GI to consider introducing nadolol as out-patient. Follow up with [employer] Dr. Ly. 3. CKD 3 - Stable 4. HTN - continue Spironolactone/hydralazine 5. Normocytic Anemia, likely sec to CKD/Cirrhosis - Iron/Folate/B12 levels normal. Outpatient Nephrology follow up. 6. BPH - continue Flomax 7. Thrombocytopenia - sec to Cirrhosis. No bleeding/bruising. 8. Abnormal ECG - Q waves in V1/2 - TropI neg. No CP. Freq PVCs on tele. Cardiology evaluated - normal LV function on Echo 12/09, no symptoms of ischemia , no stress test indicated. No adverse telemonitoring events and cleared for discharge. 9. Hypophosphatemia - repleted. 10. Seizure Disorder - Continue Keppra. DVT Px - Heparin SQ held due to Thrombocytopenia Dispo - stable for discharge Condition: Improved - Instructions Diet, Activity, Other Instructions: Your visit You were admitted to the hospital because you had abdominal pain. This was likely cause by the fluid accumulating in your belly because of the liver disease. A procedure was done to take out the fluid. Please follow up with the liver disease specialist (Dr. Ly) within 1 week. You were also evaluated by the pearl glue drier for some abnormal rhythm noted on the heart monitor. Please follow up with the pearl glue drier upon discharge. Medications Please continue your home medications Follow up Please follow up with your primary care doctor within 1 week. Please follow up with your Liver disease specialist (Dr. Ly) within 1-2 weeks. Please follow up with the smoking pipe liner (Dr. Williamson) within 1-2 weeks. Please follow up with the pearl glue drier (Dr. Shelton) within 1-2 weeks. Additional info -Minimize salt intake, limit to 2g of sodium per day. -Please call 911 or go to the ED if with any worsening fever, chills, headache, dizziness, chest pain, shortness of breath, belly pain, diarrhea, or any new concerns noted. Referrals: Sari Ly MD [Other] Michael Shelton MD [Staff Physician] - Bismark Williamson MD [Staff Physician] - Disposition: HOME - Home Medications Comprehensive Discharge Medication List: Ambulatory Orders levETIRAcetam [Keppra -] 500 mg PO BID tablet 12/06/16 Tamsulosin HCl [Flomax -] 0.4 mg PO DAILY 11/16/17 Furosemide [Lasix] 40 mg PO DAILY #30 tablet 02/07/18 Multivitamin with Iron [Multivitamins with Iron] 1 each PO DAILY 04/27/18 Pantoprazole Sodium [Protonix -] 40 mg PO DAILY 04/27/18 Budesonide/Formeterol Fumarate [SYMBICORT 160/4.5mcg -] 1 inh PO BID 06/20/18 Xalatan 0.005% Eye Drops - 1 drop OU DAILY 06/20/18 Albuterol 0.083% Nebulizer Belen [Ventolin 0.083% Nebulizer Soln -] 1 amp IH Q4H PRN 11/24/18 Gabapentin 300 mg PO BID 11/24/18 Hydralazine HCl 10 mg PO Q8H 03/09/19 Tramadol HCl 50 mg PO BID 03/09/19 traZODone HCL [Trazodone HCl] 25 mg PO DAILY 03/09/19 Lipase/Protease/Amylase [Kwame Curry 36,000 Units Capsule] 1 cap PO DAILY capsule. 03/10/19 Melatonin 5 mg PO HS PRN tab 03/10/19 Ropinirole HCl [Requip -] 0.25 mg PO DAILY tablet 03/10/19 Folic Acid - 1 mg PO DAILY tablet 03/11/19 Spironolactone [Aldactone -] 50 mg PO DAILY 30 Days #60 tablet 03/11/19 Problem List - Problems (1) Ascites Code(s): R18.8 - OTHER ASCITES This patient is new to me today: No Emergency Visit: Yes ED Registration Date: 03/08/19 Care time: The patient presented to the Emergency Department on the above date and was hospitalized for further evaluation of their emergent condition. Critical Care patient: No - Discharge Referral Referred to [facility] Med P.C.: No Physician Referral: Alexis Alonzo DO (GI)
[2019-03-11 13:43] VITALS: TEMP 97.7
[2019-03-11] MEDS ORDERED: NAPH,MB-DB/K PH,MBDB POWDER PACKET PO SCH (14:00)
[2019-03-12 15:09] LABS: BODY FLUID ALBUMIN 0.5 g/dL (.)
--- NOTE | 2019-03-13 14:45 | PATH ---
Cytology Non-Gynecological Report Patient Name: COLTON VALENTINO [facility]. Rec. #: [id number] /Age/Gender: 1955 (Age: 64) / M Account: [id number] Location: 4 W TELEMETRY U Taken: 03/09/2019 Received: 03/09/2019 Reported: 03/13/2019 Physicians: Alexis Alonzo D.O. Specimen(s) Received A: ABDOMINAL FLUID B: ABDOMINAL FLUID Clinical History Ascites Final Diagnosis A-B. ABDOMINAL FLUID, PARACENTESIS: SATISFACTORY FOR EVALUATION. NO MALIGNANT CELLS IDENTIFIED. MESOTHELIAL CELLS, MACROPHAGES, AND LYMPHOCYTES PRESENT. Electronically Signed Trang Dey M.D. Gross Description A. Approximately 50 cc of yellow fluid received fixed in 50% alcohol. One cytofunnel prepared and Pap stained. One cellblock prepared. B. Approximately 4000 cc of yellow fluid received fresh. One cytofunnel prepared and Pap stained. One cellblock prepared.
== END 2019-03-11 18:25 | disposition home or self-care (01) | DRG 948 ==
LOC: JER 12:55 → JERBED 18:06 → J7W 21:23 → J4W 03-09 18:36
PROVIDERS: ADMIT Internal Medicine
PROC: 0W9G3ZX Drainage of Peritoneal Cavity, Percutaneous Approach, Diagnostic (ICD-10-PCS; principal; 2019-03-09)
DX: R18.8 Other ascites (principal); I85.00 Esophageal varices without bleeding; E46 Unspecified protein-calorie malnutrition; N17.9 Acute kidney failure, unspecified; K76.6 Portal hypertension; C22.9 Malignant neoplasm of liver, not specified as primary or secondary; R16.0 Hepatomegaly, not elsewhere classified; I12.9 Hypertensive chronic kidney disease with stage 1 through stage 4 chronic kidney disease, or unspecified chronic kidney disease; N18.3 Chronic kidney disease, stage 3 (moderate); F14.10 Cocaine abuse, uncomplicated; F10.10 Alcohol abuse, uncomplicated; G25.81 Restless legs syndrome; M51.27 Other intervertebral disc displacement, lumbosacral region; B19.20 Unspecified viral hepatitis C without hepatic coma; N40.0 Benign prostatic hyperplasia without lower urinary tract symptoms; K21.9 Gastro-esophageal reflux disease without esophagitis; G40.909 Epilepsy, unspecified, not intractable, without status epilepticus; K74.60 Unspecified cirrhosis of liver; Z68.22 Body mass index [BMI] 22.0-22.9, adult; D63.8 Anemia in other chronic diseases classified elsewhere; R00.1 Bradycardia, unspecified; D69.6 Thrombocytopenia, unspecified; E83.39 Other disorders of phosphorus metabolism; R94.31 Abnormal electrocardiogram [ECG] [EKG]; J44.9 Chronic obstructive pulmonary disease, unspecified; Z88.0 Allergy status to penicillin
CPT/HCPCS: 36415; 74176-TC; 76942-TC; 80053; 81003; 82042; 82150; 82607; 82728; 82746; 82945; 83540; 83550; 83615; 83735; 84100; 84157; 84478; 84484; 85025; 85610; 85730; 87070; 87075; 87086; 87102; 87116; 87205; 87206; 87210; 88108; 88305-TC; 93005; 93010; 99282-25

== ENCOUNTER 2019-03-21 10:41 | Inpatient (IN) | payer MEDICARE, OTHER ==
[2019-03-21 11:48] LABS: BASO % 0.1 % (0-2.0); EOS % 3.7 % (0-4.5); HEMOGLOBIN 11.7 GM/dL (11.7-16.9); LYMPH % 14.3 % (8-40); MCH 29.1 pg (25.7-33.7); MCHC 32.6 g/dl (32.0-35.9); MEAN CELL VOLUME 89.4 fl (80-96); MEAN PLT VOLUME 10.5 fl (7.5-11.1); MONO % 21.6 % (3.8-10.2); NEUT % 60.3 % (42.8-82.8); PLATELET COUNT 98 K/MM3 (134-434); RBC 4.03 M/mm3 (4.00-5.60); RDW 17.6 % (11.9-15.9); WHITE BLOOD COUNT 6.5 K/mm3 (4.0-10.0)
[2019-03-21 11:59] LABS: INR 1.04 (0.83-1.09); PROTHROMBIN TIME (PATIENT) 12.3 SEC (9.7-13.0)
[2019-03-21 12:34] LABS: ALBUMIN 2.7 g/dl (3.4-5.0); BILIRUBIN,TOTAL 0.5 mg/dL (0.2-1); BLOOD UREA NITROGEN 30.2 mg/dL (7-18); CALCIUM 8.9 mg/dL (8.5-10.1); CREATININE 2.3 mg/dL (0.55-1.3); POTASSIUM 5.6 mmol/L (3.5-5.1); TOT PROT 7.8 g/dl (6.4-8.2)
[2019-03-21 13:37] LABS: ANISOCYTOSIS 1+; MACROCYTOSIS 0; PLATELET ESTIMATE DECREASED
--- NOTE | 2019-03-21 13:37 | PDOC ---
History of Present Illness - General Chief Complaint: Pain, Acute Stated Complaint: ABD PAIN Time Seen by Provider: 03/21/19 10:52 History Source: Patient Exam Limitations: No Limitations Past History - Travel Traveled outside of the country in the last 30 days: No Close contact w/someone who was outside of country & ill: No - Past Medical History Allergies/Adverse Reactions: Allergies Allergy/AdvReac Type Severity Reaction Status Date / Time Penicillins Allergy Unknown Verified 03/21/19 11:16 aspirin AdvReac Intermediate Verified 03/21/19 11:16 Home Medications: Ambulatory Orders levETIRAcetam [Keppra -] 500 mg PO BID tablet 12/06/16 Tamsulosin HCl [Flomax -] 0.4 mg PO DAILY 11/16/17 Furosemide [Lasix] 40 mg PO DAILY #30 tablet 02/07/18 Multivitamin with Iron [Multivitamins with Iron] 1 each PO DAILY 04/27/18 Pantoprazole Sodium [Protonix -] 40 mg PO DAILY 04/27/18 Budesonide/Formeterol Fumarate [SYMBICORT 160/4.5mcg -] 1 inh PO BID 06/20/18 Xalatan 0.005% Eye Drops - 1 drop OU DAILY 06/20/18 Albuterol 0.083% Nebulizer Belen [Ventolin 0.083% Nebulizer Soln -] 1 amp IH Q4H PRN 11/24/18 Gabapentin 300 mg PO BID 11/24/18 Hydralazine HCl 10 mg PO Q8H 03/09/19 Tramadol HCl 50 mg PO BID 03/09/19 traZODone HCL [Trazodone HCl] 25 mg PO DAILY 03/09/19 Lipase/Protease/Amylase [Kwame Curry 36,000 Units Capsule] 1 cap PO DAILY capsule. 03/10/19 Melatonin 5 mg PO HS PRN tab 03/10/19 Ropinirole HCl [Requip -] 0.25 mg PO DAILY tablet 03/10/19 Folic Acid - 1 mg PO DAILY tablet 03/11/19 Spironolactone [Aldactone -] 50 mg PO DAILY 30 Days #60 tablet 03/11/19 Cardiac Disorders: (CKD) CVA: (hepatic encephalopathy) COPD: No CHF: No Diabetes: No GI Disorders: Yes (GI bleed;GERD;ESOPHAGEAL VARICES) Disorders: Yes (CKD,STONES,BPH, hepatitis B and C) HTN: Yes Hypercholesterolemia: Yes Liver Disease: Yes (CIRRHOSIS,HEP C) Seizures: Yes Thyroid Disease: No - Surgical History Abdominal Surgery: Yes (EGD,COLONOSCOPY) - Immunization History Immunization Up to Date: Yes - Suicide/Smoking/Psychosocial Hx Smoking History: Former smoker Have you smoked in the past 12 months: No Number of Cigarettes Smoked Daily: 1 If you are a former smoker, when did you quit?: 2017 Information on smoking cessation initiated: No 'Breaking Loose' booklet given: 09/10/13 Hx Alcohol Use: No Drug/Substance Use Hx: No Substance Use Type: Alcohol, Cocaine, Heroin Hx Substance Use Treatment: Yes Review of Systems - Review of Systems Able to Perform ROS?: Yes Comments:: 03/21/19 16:01 CONSTITUTIONAL: Absent: fever, chills, diaphoresis, generalized weakness, malaise, loss of appetite HEENT: Absent: rhinorrhea, nasal congestion, throat pain, throat swelling, difficulty swallowing, mouth swelling, ear pain, eye pain, visual Changes CARDIOVASCULAR: Absent: chest pain, loss of consciousness, palpitations, irregular heart rate, peripheral edema RESPIRATORY: Absent: cough, shortness of breath, dyspnea with exertion, orthopnea, wheezing, stridor, hemoptysis GASTROINTESTINAL: Present: abdominal pain, abdominal distension Absent: nausea, vomiting, diarrhea , constipation, melena, hematochezia GENITOURINARY: Absent: dysuria, frequency, urgency, hesitancy, hematuria, flank pain, genital pain MUSCULOSKELETAL: Absent: myalgia, arthralgia, joint swelling SKIN: Absent: rash, itching, pallor HEMATOLOGIC/IMMUNOLOGIC: Absent: easy bleeding, easy bruising, lymphadenopathy, frequent infections ENDOCRINE: Absent: unexplained weight gain, unexplained weight loss, heat intolerance, cold intolerance NEUROLOGIC: Absent: headache, focal weakness or paresthesias, dizziness, unsteady gait, seizure, mental status changes, bladder or bowel incontinence PSYCHIATRIC: Absent: anxiety, depression, suicidal or homicidal ideation, hallucinations. Is the patient limited Divehi proficient: No *Physical Exam - Vital Signs Last Vital Signs Temp Pulse Resp BP Pulse Ox 98.5 F 65 22 H 150/88 100 03/21/19 10:49 03/21/19 10:49 03/21/19 10:49 03/21/19 10:49 03/21/19 10:49 - Physical Exam Comments: 03/21/19 16:02 GENERAL: Well developed, well nourished. Awake and alert. No acute distress. HEENT: Normocephalic, atraumatic. PERRLA, EOMI. No conjunctival pallor. Sclera are non- icteric. Moist mucous membranes. Oropharynx is clear. NECK: Supple. Full ROM. No JVD. Carotid pulses 2+ and symmetric, without bruits. No thyromegaly. No lymphadenopathy. CARDIOVASCULAR: Regular rate and rhythm. No murmurs, rubs, or gallops. Distal pulses are 2+ and symmetric. PULMONARY: No evidence of respiratory distress. Lungs clear to auscultation bilaterally. No wheezing, rales or rhonchi. ABDOMINAL: Distended. Lower abdominal tenderness. No rebound or guarding. enlarged liver. Normoactive bowel sounds. MUSCULOSKELETAL Normal range of motion at all joints. No bony deformities or tenderness. No CVA tenderness. EXTREMITIES: No cyanosis. No clubbing. No edema. No calf tenderness. SKIN: Warm and dry. Normal capillary refill. No rashes. No jaundice. NEUROLOGICAL: Alert, awake, appropriate. Cranial nerves 2-12 intact. No deficits to light touch and temperature in face, upper extremities and lower extremities. No motor deficits in the in face, upper extremities and lower extremities. Normoreflexic in the upper and lower extremities. Normal speech. Toes are down- going bilaterally. Gait is normal without ataxia. PSYCHIATRIC: Cooperative. Good eye contact. Appropriate mood and affect. ED Treatment Course - LABORATORY CBC & Chemistry Diagram: 03/21/19 11:40 03/21/19 11:40 - ADDITIONAL ORDERS Additional order review: Laboratory Results 03/21/19 03/21/19 11:40 11:40 PT with INR 12.30 INR 1.04 Sodium 142 Potassium 5.6 H Chloride 111 H Carbon Dioxide 25 Anion Gap 6 L BUN 30.2 H Creatinine 2.3 H Est GFR (CKD-EPI)AfAm 33.29 Est GFR (CKD-EPI)NonAf 28.73 Random Glucose 84 Calcium 8.9 Total Bilirubin 0.5 AST 48 H ALT 39 Alkaline Phosphatase 317 H Total Protein 7.8 Albumin 2.7 L 03/21/19 11:40 RBC 4.03 MCV 89.4 MCHC 32.6 RDW 17.6 H MPV 10.5 D Neutrophils % 60.3 Lymphocytes % 14.3 D Monocytes % 21.6 H Eosinophils % 3.7 Basophils % 0.1 - RADIOLOGY Radiology Studies Ordered: Category Date Time Status ABDOMEN US -LIMITED [US] Stat Ultrasound 03/21/19 11:09 Completed Medical Decision Making - Medical Decision Making 03/21/19 15:52 The pt is a 64M w/ a history of HTN, HCV s/p treatment, liver cancer s/p left lobe resection (12/2018 at [facility]) who presents for 3 days of generalized (mostly lower) abdominal pain. Patient states he feels distended and tension in his lower abdomen and that it has increased in size over the past three days. He was recently admitted for paracentesis on 03/08/19. Denies fevers, chills, shortness of breath, chest pain, n/v/d. A/P: Ascites, SILVNAA On exam patient has tight, distended abdomen with poor fluid wave US abdomen shows large ascites WBC WNL CR elevated from 2.0 --> 2.3 today Covered with Ceftriaxone Pending urine Attempted beside paracentesis however, no safe pocket visualized on exam Will admit to hospitalists for IR drainage and management of SILVANA *DC/Admit/Observation/Transfer Diagnosis at time of Disposition: Ascites of liver CKD (chronic kidney disease) Qualifiers: Chronic kidney disease stage: unspecified stage Qualified Code(s): N18.9 - Chronic kidney disease, unspecified ARF (acute renal failure) Qualifiers: Acute renal failure type: unspecified Qualified Code(s): N17.9 - Acute kidney failure, unspecified - Discharge Dispostion Condition at time of disposition: Guarded Decision to Admit order: Yes - Referrals Referrals: Kwadwo Osborne MD [Primary Care Provider] - - Patient Instructions - Post Discharge Activity
--- NOTE | 2019-03-21 14:49 | EKG ---
Test Reason : Blood Pressure : / mmHG Vent. Rate : 066 BPM Atrial Rate : 066 BPM P-R Int : 146 ms QRS Dur : 080 ms QT Int : 418 ms P-R-T Axes : 060 -11 068 degrees QTc Int : 438 ms NORMAL SINUS RHYTHM SEPTAL INFARCT (CITED ON OR BEFORE 24-NOV-2018) ABNORMAL ECG WHEN COMPARED WITH ECG OF 09-MAR-2019 08:48, PREMATURE VENTRICULAR COMPLEXES ARE NO LONGER PRESENT QUESTIONABLE CHANGE IN INITIAL FORCES OF SEPTAL LEADS Confirmed by ETHEL BOYD, CHEIKH ([id number]) on 03/21/2019 2:49:19 PM Referred By: Confirmed By:CHEIKH DAVENPORT MD
[2019-03-21] MEDS ORDERED: LIDOCAINE HCL 2% (50ML VIAL) SQ ONE (14:55)
[2019-03-21] MEDS ORDERED: LIDOCAINE HCL 2% (20ML MULTI-DOSE VIAL) NR ONE (15:08)
[2019-03-21] MEDS ORDERED: CEFTRIAXONE 1,000 MG in DEXTROSE 5%-WATER - 50 ML IVPB ONE (15:57)
[2019-03-21] MEDS ORDERED: MELATONIN 5 MG TABLETS PO PRN (16:15)
[2019-03-21] MEDS ORDERED: CEFTRIAXONE 1 GM/50 ML BAG ONE (16:22)
--- NOTE | 2019-03-21 18:12 | HP ---
Admitting History and Physical - Primary Care Physician PCP: Kwadwo Osborne - Admission Chief Complaint: abdominal distension History of Present Illness: The pt is a 64M w/ a history of HTN, HCV s/p treatment, liver cancer s/p left lobe resection (12/2018 at [facility]) who presents for 3 days of generalized (mostly lower) abdominal pain. Patient states he feels distended and tension in his lower abdomen and that it has increased in size over the past three days. He was recently admitted for paracentesis on 03/08/19 discharged on 03/11 Denies fevers, chills, shortness of breath, chest pain, n/v/d. 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 Cardiovascular: Yes: HTN, Hyperlipdemia Gastrointestinal: Yes: Esophageal Varices (Unclear by his history), GERD Hepatobiliary: Yes: Cirrhosis (with sequelae of hepatic encephalopathy, esophageal varices, HCC ), Hepatitis C Renal/: Yes: Renal Inusuff, BPH - Smoking History Smoking history: Former smoker Have you smoked in the past 12 months: No Aproximately how many cigarettes per day: 1 If you are a former smoker, when did you quit?: 2017 - Alcohol/Substance Use Hx Alcohol Use: No History of Substance Use: reports: Cocaine (states abstinence for 1 year), Heroin - Social History ADL: Support Services Occupation: not currently working History of Recent Travel: No Home Medications - Allergies Allergies/Adverse Reactions: Allergies Allergy/AdvReac Type Severity Reaction Status Date / Time Penicillins Allergy Unknown Verified 03/21/19 11:16 aspirin AdvReac Intermediate Verified 03/21/19 11:16 - Home Medications Home Medications: Ambulatory Orders levETIRAcetam [Keppra -] 500 mg PO BID tablet 12/06/16 Tamsulosin HCl [Flomax -] 0.4 mg PO DAILY 11/16/17 Furosemide [Lasix] 40 mg PO DAILY #30 tablet 02/07/18 Multivitamin with Iron [Multivitamins with Iron] 1 each PO DAILY 04/27/18 Pantoprazole Sodium [Protonix -] 40 mg PO DAILY 04/27/18 Budesonide/Formeterol Fumarate [SYMBICORT 160/4.5mcg -] 1 inh PO BID 06/20/18 Xalatan 0.005% Eye Drops - 1 drop OU DAILY 06/20/18 Albuterol 0.083% Nebulizer Belen [Ventolin 0.083% Nebulizer Soln -] 1 amp IH Q4H PRN 11/24/18 Gabapentin 300 mg PO BID 11/24/18 Hydralazine HCl 10 mg PO Q8H 03/09/19 Tramadol HCl 50 mg PO BID 03/09/19 traZODone HCL [Trazodone HCl] 25 mg PO DAILY 03/09/19 Lipase/Protease/Amylase [Kwame Curry 36,000 Units Capsule] 1 cap PO DAILY capsule. 03/10/19 Melatonin 5 mg PO HS PRN tab 03/10/19 Ropinirole HCl [Requip -] 0.25 mg PO DAILY tablet 03/10/19 Folic Acid - 1 mg PO DAILY tablet 03/11/19 Spironolactone [Aldactone -] 50 mg PO DAILY 30 Days #60 tablet 03/11/19 Family Disease History - Family Disease History Family History: Denies Review of Systems - Review of Systems Constitutional: reports: No Symptoms Eyes: reports: No Symptoms HENT: reports: No Symptoms Neck: reports: No Symptoms Cardiovascular: reports: No Symptoms Respiratory: reports: Cough (clear sputum) Gastrointestinal: reports: Bloating, Vomiting (x 1 this am , non bloody), Other (ascites) Genitourinary: reports: No Symptoms Breasts: reports: No Symptoms Reported Musculoskeletal: reports: Back Pain (LBP) Integumentary: reports: No Symptoms Neurological: reports: No Symptoms Endocrine: reports: No Symptoms Hematology/Lymphatic: reports: No Symptoms Psychiatric: reports: No Symptoms Physical Examination Vital Signs: Vital Signs Temperature 98.5 F 03/21/19 10:49 Pulse Rate 57 L 03/21/19 17:58 Respiratory Rate 20 03/21/19 17:58 Blood Pressure 140/93 03/21/19 17:58 O2 Sat by Pulse Oximetry (%) 98 03/21/19 17:59 Constitutional: Yes: No Distress, Calm, Thin Eyes: Yes: WNL, Conjunctiva Clear, EOM Intact HENT: Yes: WNL Neck: Yes: WNL, Supple, Trachea Midline Cardiovascular: Yes: WNL, Regular Rate and Rhythm Respiratory: Yes: WNL, Regular Gastrointestinal: Yes: Normal Bowel Sounds, Ascites ...Rectal Exam: Yes: Deferred Renal/: Yes: WNL Breast(s): Yes: WNL Musculoskeletal: Yes: WNL Extremities: Yes: WNL Edema: No Peripheral Pulses WNL: Yes Integumentary: Yes: WNL Neurological: Yes: WNL, Alert, Oriented ...Motor Strength: WNL Psychiatric: Yes: WNL, Alert, Oriented Labs: CBC, BMP 03/21/19 11:40 03/21/19 11:40 Imaging - Results Ultrasound: Report Reviewed (Large amout or free flowing ascites. Cirrhotic liver) Problem List - Problems (1) HCC (hepatocellular carcinoma) Assessment/Plan: s/p liver resection for HCC. Pt to follow with textile engineer at [facility] (has appointment on 03/[address] Ly) Code(s): C22.0 - LIVER CELL CARCINOMA (2) Acute on chronic kidney failure Assessment/Plan: acute on CKD Cr 2.3, K 5.6 renal consult appreciated d/c aldactone, cont lasix will give lokelma as per renal monitor lytes - Code(s): N17.9 - ACUTE KIDNEY FAILURE, UNSPECIFIED; N18.9 - CHRONIC KIDNEY DISEASE, UNSPECIFIED (3) History of resection of liver Assessment/Plan: To follow with Dr Ly [facility] Code(s): Z90.49 - ACQUIRED ABSENCE OF OTHER SPECIFIED PARTS OF DIGESTIVE TRACT (4) Hepatic encephalopathy Assessment/Plan: on lactulose during last admission but not taking now will restart to prevent encehpalopathy Code(s): K72.90 - HEPATIC FAILURE, UNSPECIFIED WITHOUT COMA (5) Ascites Assessment/Plan: continue lasix, hold aldactone will arrange for ultrasounded guided paracentesis no signs of SBP, last fluid from paracentesis negative, afebrile given one dose of ceftriuaxone in ED will continue if wbc increases of becomes febrile Code(s): R18.8 - OTHER ASCITES Qualifiers: Ascites type: other type Qualified Code(s): R18.8 - Other ascites (6) Prophylactic measure Assessment/Plan: FEN no additional IVF needed renal diet, NPO after mn for paracentesis tomorrow monitor electrolytes DVT no chemical anticoagulation early ambulation Dispo admit to inpatient full code discharge planning Code(s): Z29.9 - ENCOUNTER FOR PROPHYLACTIC MEASURES, UNSPECIFIED (7) Epilepsy Assessment/Plan: continue keppra Code(s): G40.909 - EPILEPSY, UNSP, NOT INTRACTABLE, WITHOUT STATUS EPILEPTICUS (8) Cirrhosis Code(s): K74.60 - UNSPECIFIED CIRRHOSIS OF LIVER Qualifiers: (9) Hepatitis C Code(s): B19.20 - UNSPECIFIED VIRAL HEPATITIS C WITHOUT HEPATIC COMA (10) Hypertension Assessment/Plan: c/w home hydralazine Code(s): I10 - ESSENTIAL (PRIMARY) HYPERTENSION Assessment/Plan y Visit type - Emergency Visit Emergency Visit: Yes ED Registration Date: 03/21/19 Care time: The patient presented to the Emergency Department on the above date and was hospitalized for further evaluation of their emergent condition. - New Patient This patient is new to me today: Yes Date on this admission: 03/21/19 - Critical Care Critical Care patient: No
[2019-03-21 18:50] LABS: EPI CELLS 1.5 /HPF (0-5/HPF); HYALINE CASTS 48 /lpf (0-8); PH,URINE 6.5 (5.0-8.0); URINE APPEARANCE CLOUDY; URINE BACTERIA 17.1 /hpf (NEGATIVE); URINE BILIRUBIN NEGATIVE (NEGATIVE); URINE COLOR YELLOW; URINE GLUCOSE (UA) NEGATIVE (NEGATIVE); URINE KETONE NEGATIVE (NEGATIVE); URINE LEUK ESTERASE TRACE (NEGATIVE); URINE NITRITE NEGATIVE (NEGATIVE); URINE PROTEIN NEGATIVE (NEGATIVE); URINE RBC 9 /hpf (0-4); URINE WBC 0 /hpf (0-5)
--- NOTE | 2019-03-21 19:00 | CONSULT ---
Consult Consult Specialty:: Nephrology Reason for Consultation:: SILVANA/hyperkalemia - History of Present Illness Chief Complaint: abdominal distension History of Present Illness: Pt is a 64 year old male with pmhx of ckd, liver cirrhosis, hep c, drug abuse and copd who presents for abdominal distension. He denies fevers or chills. He was found to have ascites. He recently had a paracentesis. He complains of worsening distension and discomfort. He is taking his diuretics. 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 Cardio/Vascular: Yes: HTN Pulmonary: Yes: COPD Gastrointestinal: Yes: Esophageal Varices (Unclear by his history), GERD Hepatobiliary: Yes: Cirrhosis (with sequelae of hepatic encephalopathy, esophageal varices, HCC ), Hepatitis C Renal/: Yes: Renal Inusuff, BPH - Alcohol/Substance Use Hx Alcohol Use: No History of Substance Use: reports: Cocaine (states abstinence for 1 year), Heroin - Smoking History Smoking history: Former smoker Have you smoked in the past 12 months: No Aproximately how many cigarettes per day: 1 If you are a former smoker, when did you quit?: 2017 - Social History Usual Living Arrangement: Alone ADL: Support Services Occupation: not currently working History of Recent Travel: No Home Medications - Allergies Allergies/Adverse Reactions: Allergies Allergy/AdvReac Type Severity Reaction Status Date / Time Penicillins Allergy Unknown Verified 03/21/19 11:16 aspirin AdvReac Intermediate Verified 03/21/19 11:16 - Home Medications Home Medications: Ambulatory Orders levETIRAcetam [Keppra -] 500 mg PO BID tablet 12/06/16 Tamsulosin HCl [Flomax -] 0.4 mg PO DAILY 11/16/17 Furosemide [Lasix] 40 mg PO DAILY #30 tablet 02/07/18 Multivitamin with Iron [Multivitamins with Iron] 1 each PO DAILY 04/27/18 Pantoprazole Sodium [Protonix -] 40 mg PO DAILY 04/27/18 Budesonide/Formeterol Fumarate [SYMBICORT 160/4.5mcg -] 1 inh PO BID 06/20/18 Xalatan 0.005% Eye Drops - 1 drop OU DAILY 06/20/18 Albuterol 0.083% Nebulizer Belen [Ventolin 0.083% Nebulizer Soln -] 1 amp IH Q4H PRN 11/24/18 Gabapentin 300 mg PO BID 11/24/18 Hydralazine HCl 10 mg PO Q8H 03/09/19 Tramadol HCl 50 mg PO BID 03/09/19 traZODone HCL [Trazodone HCl] 25 mg PO DAILY 03/09/19 Lipase/Protease/Amylase [Kwame Dr 36,000 Units Capsule] 1 cap PO DAILY capsule. 03/10/19 Melatonin 5 mg PO HS PRN tab 03/10/19 Ropinirole HCl [Requip -] 0.25 mg PO DAILY tablet 03/10/19 Folic Acid - 1 mg PO DAILY tablet 03/11/19 Spironolactone [Aldactone -] 50 mg PO DAILY 30 Days #60 tablet 03/11/19 Family Disease History - Family Disease History Family History: Denies Review of Systems - Review of Systems Constitutional: reports: Malaise Eyes: reports: No Symptoms HENT: reports: No Symptoms Neck: reports: No Symptoms Cardiovascular: reports: Edema Gastrointestinal: reports: Other (ascites) Genitourinary: reports: No Symptoms Musculoskeletal: reports: No Symptoms Integumentary: reports: No Symptoms Neurological: reports: No Symptoms Endocrine: reports: No Symptoms Hematology/Lymphatic: reports: No Symptoms Physical Exam Vital Signs: Vital Signs Temperature 98.5 F 03/21/19 10:49 Pulse Rate 57 L 03/21/19 17:58 Respiratory Rate 20 03/21/19 17:58 Blood Pressure 140/93 03/21/19 17:58 O2 Sat by Pulse Oximetry (%) 98 03/21/19 17:59 Constitutional: Yes: Calm Eyes: Yes: Conjunctiva Clear HENT: Yes: Atraumatic Neck: Yes: Supple Cardiovascular: Yes: S1, S2 Respiratory: Yes: CTA Bilaterally Gastrointestinal: Yes: Ascites Renal/: Yes: WNL Musculoskeletal: Yes: WNL Edema: Yes Edema: LLE: 1+, RLE: 1+ Neurological: Yes: Oriented Psychiatric: Yes: Oriented Labs: CBC, BMP 03/21/19 11:40 03/21/19 11:40 Laboratory Tests 03/21/19 03/21/19 11:40 18:00 Sodium 142 Potassium 5.6 H Anion Gap 6 L BUN 30.2 H Creatinine 2.3 H Urine Protein Negative Urine Blood Negative Imaging - Results Chest X-ray: Report Reviewed Ultrasound: Report Reviewed Assessment/Plan Current Medications Generic Name Dose Route Start Last Admin Trade Name Freq PRN Reason Stop Dose Admin Budesonide/Formoterol Fumarate 2 puff 03/21/19 22:00 Symbicort 160/4.5mcg - IH BID PIERO Folic Acid 1 mg 03/22/19 10:00 Folic Acid - PO DAILY PIERO Furosemide 40 mg 03/22/19 10:00 Lasix - PO DAILY PIERO Gabapentin 300 mg 03/21/19 22:00 Neurontin - PO BID PIERO Heparin Sodium (Porcine) 5,000 unit 03/21/19 22:00 Heparin - SQ BID PIERO Hydralazine HCl 10 mg 03/21/19 16:15 Apresoline - PO Q8H PIERO Levetiracetam 500 mg 03/21/19 22:00 Keppra - PO BID PIERO Melatonin 5 mg 03/21/19 16:15 Melatonin PO HS PRN INSOMNIA Pancrelipase 1 cap 03/21/19 17:30 Creon 36,000 Units Capsule PO TIDCM PIERO Pantoprazole Sodium 40 mg 03/22/19 10:00 Protonix - PO DAILY PIERO Ropinirole HCl 0.25 mg 03/22/19 10:00 Requip - PO DAILY PIERO Spironolactone 50 mg 03/22/19 10:00 Aldactone - PO DAILY PIERO Tamsulosin HCl 0.4 mg 03/22/19 08:30 Flomax - PO DAILY@0830 PIERO Tramadol HCl 50 mg 03/21/19 22:00 Ultram - PO BID PIERO Trazodone HCl 25 mg 03/22/19 22:00 Desyrel - PO HS PIERO Impression 1. CKD 2. Hep C 3. liver cirrhosis 4. ascites 5. epilepsy 6. substance abuse 7. hx of lobectomy 8. diarrhea 9. abd pain 10. hyperkalemia Plan - d/c aldactone - cont lasix - will give lokelma - monitor lytes - pt to have paracentesis - GI eval - ua neg for blood or protein - avoid nsaids - discussed with ER team earlier today Dr Williamson
[2019-03-21] MEDS ORDERED: SODIUM ZIRCONIUM CYCLOSILICATE (LOKELMA) 5 GM PACKET PO ONE (19:06)
[2019-03-21 20:12] VITALS: BMI 24.3
[2019-03-21] MEDS ORDERED: PT OWN MED DRAWER 7, Y5N ONE (21:00)
[2019-03-21] MEDS: GABAPENTIN 300 MG CAPSULE (FP) PO SCH (21:08)
[2019-03-21] MEDS: levETIRAcetam 500 MG TABLET (FP) PO SCH (21:08)
[2019-03-21] MEDS: traMADol HCL 50 MG TABLET PO SCH (21:08)
[2019-03-21] MEDS ORDERED: HEPARIN NA (PORCINE) 5,000 UNITS/ML 1ML VIAL SQ SCH (22:00)
[2019-03-21] MEDS: BUDESONIDE/FORMETEROL FUMARATE 160/4.5 mcg INHALER IH SCH (22:39)
[2019-03-22] MEDS ORDERED: SODIUM ZIRCONIUM CYCLOSILICATE (LOKELMA) 5 GM PACKET PO ONE
[2019-03-22] MEDS: hydrALAZINE HCL 10 MG TABLET PO SCH ×4 (00:25→21:46)
[2019-03-22] MEDS ORDERED: PT OWN MED DRAWER 7, Y5N ONE ×2 (07:00→23:25)
[2019-03-22 07:15] LABS: HEMATOCRIT 32.9 % (35.4-49); HEMOGLOBIN 10.9 GM/dL (11.7-16.9); MCH 29.3 pg (25.7-33.7); MCHC 33.1 g/dl (32.0-35.9); MEAN CELL VOLUME 88.5 fl (80-96); MEAN PLT VOLUME 10.3 fl (7.5-11.1); PLATELET COUNT 87 K/MM3 (134-434); RBC 3.72 M/mm3 (4.00-5.60); RDW 16.8 % (11.9-15.9); WHITE BLOOD COUNT 5.6 K/mm3 (4.0-10.0)
[2019-03-22 07:41] LABS: INR 1.1 (0.83-1.09)
[2019-03-22] MEDS ORDERED: LACTULOSE 20 GM/30 ML UDC (FOR ORAL USE ONLY) PO PRN (08:19)
--- NOTE | 2019-03-22 08:19 | PN ---
Progress Note, Physician Chief Complaint: awaiting paracentesis History of Present Illness: The pt is a 64M w/ a history of HTN, HCV s/p treatment, liver cancer s/p left lobe resection (12/2018 at [facility]) who presents for 3 days of generalized (mostly lower) abdominal pain. Patient states he feels distended and tension in his lower abdomen and that it has increased in size over the past three days. He was recently admitted for paracentesis on 03/08/19 discharged on 03/11 Denies fevers, chills, shortness of breath, chest pain, n/v/d. - Current Medication List Current Medications: Active Medications Budesonide/Formoterol Fumarate (Symbicort 160/4.5mcg -) 2 puff IH BID [facility] Last Admin: 03/21/19 22:39 Dose: 2 puff Folic Acid (Folic Acid -) 1 mg PO DAILY [facility] Furosemide (Lasix -) 40 mg PO DAILY [facility] Gabapentin (Neurontin -) 300 mg PO BID [facility] Last Admin: 03/21/19 21:08 Dose: 300 mg Hydralazine HCl (Apresoline -) 10 mg PO TID [facility] Last Admin: 03/22/19 06:34 Dose: 10 mg Levetiracetam (Keppra -) 500 mg PO BID [facility] Last Admin: 03/21/19 21:08 Dose: 500 mg Melatonin (Melatonin) 5 mg PO HS PRN PRN Reason: INSOMNIA Pancrelipase (Creon Dr 36,000 Units Capsule) 1 cap PO TIDCM [facility] Pantoprazole Sodium (Protonix -) 40 mg PO DAILY [facility] Ropinirole HCl (Requip -) 0.25 mg PO DAILY [facility] Tamsulosin HCl (Flomax -) 0.4 mg PO DAILY@0830 [facility] Tramadol HCl (Ultram -) 50 mg PO BID [facility] Last Admin: 03/21/19 21:08 Dose: 50 mg Trazodone HCl (Desyrel -) 25 mg PO HS [facility] - Objective Vital Signs: Vital Signs Temperature 98.1 F 03/22/19 05:55 Pulse Rate 56 L 03/22/19 05:55 Respiratory Rate 20 03/22/19 05:55 Blood Pressure 126/68 03/22/19 05:55 O2 Sat by Pulse Oximetry (%) 100 03/21/19 20:22 Constitutional: Yes: No Distress, Calm, Thin Eyes: Yes: WNL, Conjunctiva Clear, EOM Intact HENT: Yes: WNL, Atraumatic, Normocephalic Neck: Yes: WNL, Supple, Trachea Midline Cardiovascular: Yes: WNL, Regular Rate and Rhythm, Bradycardia Respiratory: Yes: WNL, Regular, CTA Bilaterally Gastrointestinal: Yes: Normal Bowel Sounds, Ascites, Distention ...Rectal Exam: Yes: Deferred Breast(s): Yes: WNL Musculoskeletal: Yes: Back Pain (chronic lower) Extremities: Yes: WNL Edema: No Peripheral Pulses WNL: Yes Integumentary: Yes: WNL Neurological: Yes: WNL, Alert, Oriented ...Motor Strength: WNL (uses rolling walker to ambulate) Psychiatric: Yes: WNL, Alert, Oriented Labs: CBC, BMP 03/22/19 06:30 03/21/19 11:40 INR, PTT INR 1.10 (0.83-1.09) H 03/22/19 06:30 - ....Imaging Chest X-ray: Image Reviewed (no effusion or infiltrates) Ultrasound: Report Reviewed (large amount of ascites) Problem List - Problems (1) HCC (hepatocellular carcinoma) Assessment/Plan: s/p liver resection for HCC. Pt to follow with cluster bore operator at [facility] (has appointment on 03/[address] Ly) Code(s): C22.0 - LIVER CELL CARCINOMA (2) Acute on chronic kidney failure Assessment/Plan: acute on CKD Cr 2.3, K 5.6 renal consult appreciated d/c aldactone, cont lasix will give lokelma as per renal monitor lytes - Code(s): N17.9 - ACUTE KIDNEY FAILURE, UNSPECIFIED; N18.9 - CHRONIC KIDNEY DISEASE, UNSPECIFIED (3) History of resection of liver Assessment/Plan: To follow with Dr Ly [facility] Code(s): Z90.49 - ACQUIRED ABSENCE OF OTHER SPECIFIED PARTS OF DIGESTIVE TRACT (4) Hepatic encephalopathy Assessment/Plan: on lactulose during last admission but not taking now c/w lactulose titrating to BM Code(s): K72.90 - HEPATIC FAILURE, UNSPECIFIED WITHOUT COMA (5) Ascites Assessment/Plan: continue lasix, hold aldactone paracentesis planned for today in IR no signs of SBP, last fluid from paracentesis negative, afebrile will start cipro qd as SPB prophylaxis f/u cell count on ascites fluid GI conusltation appreciated Code(s): R18.8 - OTHER ASCITES Qualifiers: Ascites type: other type Qualified Code(s): R18.8 - Other ascites (6) Prophylactic measure Assessment/Plan: FEN no additional IVF needed renal diet, NPO after mn for paracentesis tomorrow monitor electrolytes DVT no chemical anticoagulation early ambulation Dispo admit to inpatient full code discharge planning Code(s): Z29.9 - ENCOUNTER FOR PROPHYLACTIC MEASURES, UNSPECIFIED (7) Epilepsy Assessment/Plan: continue keppra Code(s): G40.909 - EPILEPSY, UNSP, NOT INTRACTABLE, WITHOUT STATUS EPILEPTICUS (8) Cirrhosis Code(s): K74.60 - UNSPECIFIED CIRRHOSIS OF LIVER Qualifiers: (9) Hepatitis C Code(s): B19.20 - UNSPECIFIED VIRAL HEPATITIS C WITHOUT HEPATIC COMA (10) Hypertension Assessment/Plan: c/w home hydralazine Code(s): I10 - ESSENTIAL (PRIMARY) HYPERTENSION Visit type - Emergency Visit Emergency Visit: Yes ED Registration Date: 03/21/19 Care time: The patient presented to the Emergency Department on the above date and was hospitalized for further evaluation of their emergent condition. - New Patient This patient is new to me today: No - Critical Care Critical Care patient: No - Discharge Referral Referred to [facility] Med P.C.: No
[2019-03-22] MEDS: TAMSULOSIN HCL 0.4 MG CAP PO SCH (08:47)
[2019-03-22] MEDS: LIPASE/PROTEASE/AMYLASE 36,000 UNIT CAPSULE PO SCH ×3 (08:48→17:52)
--- NOTE | 2019-03-22 08:49 | CON.GI ---
Consult Consult Specialty:: GI Referred by:: Hospitalist Service Reason for Consultation:: Ascites - History of Present Illness Chief Complaint: Lower back pain radiating to left and right flank History of Present Illness: 64 y/o male with a history of alcoholic / CHC cirrhosis with sequelae of esophageal varices (ablated via banding), hepatic encephalopathy, HCC s/p recent resection at [facility] admitted for evaluation of what the patient describes as lower back pain radiating to his left and right flanks. He follows with equipment service engineer Dr. Ly at [facility] and states that his next appointment with her is next week. The patient denies shortness of breath, abdominal pain, nausea, vomiting, rectal bleeding, melena, change in bowel habits, fevers/chills. He underwent 2L paracentesis about 2 weeks ago that failed to reveal SBP. total protein in the fluid was 1.3. Please refer to [facility] for previous endoscopy reports and colonoscopy findings. Abd US on admission revealed moderate to large ascites. - History Source History Provided By: Patient, Medical Record Limitations to Obtaining History: No Limitations - Past Medical History [employer]: Yes: Seizure Cardio/Vascular: Yes: HTN, Hyperlipdemia Pulmonary: Yes: COPD Gastrointestinal: Yes: Esophageal Varices (Unclear by his history), GERD Hepatobiliary: Yes: Cirrhosis (with sequelae of hepatic encephalopathy, esophageal varices, HCC ), Hepatitis C Renal/: Yes: Renal Inusuff, BPH Musculoskeletal: Yes: Chronic low back pain (discogenic disease) - Past Surgical History Additional Surgical History: Left lobe of liver resection for HCC - Alcohol/Substance Use Hx Alcohol Use: No History of Substance Use: reports: Cocaine (states abstinence for 1 year), Heroin - Smoking History Smoking history: Former smoker Have you smoked in the past 12 months: No Aproximately how many cigarettes per day: 1 If you are a former smoker, when did you quit?: 2017 - Social History Usual Living Arrangement: Alone ADL: Support Services Occupation: not currently working Place of : [place] History of Recent Travel: No Home Medications - Allergies Allergies/Adverse Reactions: Allergies Allergy/AdvReac Type Severity Reaction Status Date / Time Penicillins Allergy Unknown Verified 03/21/19 11:16 aspirin AdvReac Intermediate Verified 03/21/19 11:16 - Home Medications Home Medications: Ambulatory Orders levETIRAcetam [Keppra -] 500 mg PO BID tablet 12/06/16 Tamsulosin HCl [Flomax -] 0.4 mg PO DAILY 11/16/17 Furosemide [Lasix] 40 mg PO DAILY #30 tablet 02/07/18 Multivitamin with Iron [Multivitamins with Iron] 1 each PO DAILY 04/27/18 Pantoprazole Sodium [Protonix -] 40 mg PO DAILY 04/27/18 Budesonide/Formeterol Fumarate [SYMBICORT 160/4.5mcg -] 1 inh PO BID 06/20/18 Xalatan 0.005% Eye Drops - 1 drop OU DAILY 06/20/18 Albuterol 0.083% Nebulizer Belen [Ventolin 0.083% Nebulizer Soln -] 1 amp IH Q4H PRN 11/24/18 Gabapentin 300 mg PO BID 11/24/18 Hydralazine HCl 10 mg PO Q8H 03/09/19 Tramadol HCl 50 mg PO BID 03/09/19 traZODone HCL [Trazodone HCl] 25 mg PO DAILY 03/09/19 Lipase/Protease/Amylase [Kwame Curry 36,000 Units Capsule] 1 cap PO DAILY capsule. 03/10/19 Melatonin 5 mg PO HS PRN tab 03/10/19 Ropinirole HCl [Requip -] 0.25 mg PO DAILY tablet 03/10/19 Folic Acid - 1 mg PO DAILY tablet 03/11/19 Spironolactone [Aldactone -] 50 mg PO DAILY 30 Days #60 tablet 03/11/19 Family Disease History - Family Disease History Other Family History: No family history of colorectal cancer, liver disease, other GI malignancy Review of Systems - Review of Systems Constitutional: denies: Chills, Fever, Loss of Appetite Cardiovascular: denies: Chest Pain Respiratory: denies: Cough, SOB Gastrointestinal: denies: Abdominal Pain, Diarrhea, Nausea, Rectal Bleeding, Vomiting, Vomiting Blood Physical Exam-GI Vital Signs: Vital Signs Temperature 98.1 F 03/22/19 05:55 Pulse Rate 56 L 03/22/19 05:55 Respiratory Rate 20 03/22/19 05:55 Blood Pressure 126/68 03/22/19 05:55 O2 Sat by Pulse Oximetry (%) 100 03/21/19 20:22 Constitutional: Yes: Calm Eyes: No: Sclera Icterus Cardiovascular: Yes: Regular Rate and Rhythm, Murmur Respiratory: Yes: CTA Bilaterally Gastrointestinal Inspection: Yes: Ascites (+ fluid wave), Distention, Scars ( lower abdominal) ...Auscultate: Yes: Normoactive Bowel Sounds ...Palpate: Yes: Soft. No: Tenderness ...Percussion: No: Tympanitic Edema: No (No LE edema) Neurological: Yes: Alert. No: Asterixis Labs: CBC, BMP 03/22/19 06:30 03/21/19 11:40 INR, PTT INR 1.10 (0.83-1.09) H 03/22/19 06:30 Hepatic Panel Total Bilirubin 0.5 mg/dL (0.2-1) 03/21/19 11:40 AST 48 U/L (15-37) H 03/21/19 11:40 ALT 39 U/L (13-61) 03/21/19 11:40 Alkaline Phosphatase 317 U/L (45-117) H 03/21/19 11:40 Albumin 2.7 g/dl (3.4-5.0) L 03/21/19 11:40 Problem List - Problems (1) Ascites due to alcoholic cirrhosis Assessment/Plan: S/P HCC resection, it appears as though his volume status has worsened as well Abdomen is soft and he denies abdominal pain. Paracentesis can be performed for diagnostic purposes. Would keep paracentesis Quantitiy below 5L given renal insufficiency and lack of symptoms. Fluid management will be difficult given the restrictions that his renal insufficiency poses to adequate diuresis. Renal has been consulted and Mr. Lopez will be best served following up at his liver center [facility] (states having appointment with Dr. Ly next week). He will need to be maintained on a 2 g low sodium diet (preferably chopped given his history of schatzki's ring). Given renal insufficiency and low ascites protein, would suggest GI prophylaxis with cirpo 500mg daily if the dose is OK from renal standpoint. Code(s): K70.31 - ALCOHOLIC CIRRHOSIS OF LIVER WITH ASCITES
[2019-03-22] MEDS: levETIRAcetam 500 MG TABLET (FP) PO SCH ×2 (09:49→21:48)
[2019-03-22] MEDS: PANTOPRAZOLE 40 MG TABLET (FP) PO SCH (09:49)
[2019-03-22] MEDS: FOLIC ACID 1 MG TABLET (FP) PO SCH (09:49)
[2019-03-22] MEDS: FUROSEMIDE 40 MG TABLET (FP) PO SCH (09:49)
[2019-03-22] MEDS: GABAPENTIN 300 MG CAPSULE (FP) PO SCH ×2 (09:50→21:46)
[2019-03-22] MEDS: traMADol HCL 50 MG TABLET PO SCH ×2 (09:50→21:46)
[2019-03-22] MEDS: BUDESONIDE/FORMETEROL FUMARATE 160/4.5 mcg INHALER IH SCH ×2 (09:53→21:49)
[2019-03-22] MEDS ORDERED: SPIRONOLACTONE 25 MG TABLET (FP) PO SCH (10:00)
[2019-03-22] MEDS: rOPINIRole HCL 0.25 MG TABLET PO SCH (13:49)
--- NOTE | 2019-03-22 14:00 | PN ---
Progress Note, Physician History of Present Illness: Pt seen and examined at bedside. He feels that the abdomen is improved. - Current Medication List Current Medications: Active Medications Budesonide/Formoterol Fumarate (Symbicort 160/4.5mcg -) 2 puff IH BID [facility] Last Admin: 03/22/19 09:53 Dose: 2 puff Folic Acid (Folic Acid -) 1 mg PO DAILY [facility] Last Admin: 03/22/19 09:49 Dose: 1 mg Furosemide (Lasix -) 40 mg PO DAILY [facility] Last Admin: 03/22/19 09:49 Dose: 40 mg Gabapentin (Neurontin -) 300 mg PO BID [facility] Last Admin: 03/22/19 09:50 Dose: 300 mg Hydralazine HCl (Apresoline -) 10 mg PO TID [facility] Last Admin: 03/22/19 06:34 Dose: 10 mg Lactulose (Cephulac (Oral Use)) 20 gm PO TID PRN PRN Reason: CONSTIPATION Levetiracetam (Keppra -) 500 mg PO BID [facility] Last Admin: 03/22/19 09:49 Dose: 500 mg Levofloxacin (Levaquin -) 250 mg PO DAILY@0600 [facility] Melatonin (Melatonin) 5 mg PO HS PRN PRN Reason: INSOMNIA Pancrelipase (Creon Dr 36,000 Units Capsule) 1 cap PO TIDCM [facility] Last Admin: 03/22/19 08:48 Dose: 1 cap Pantoprazole Sodium (Protonix -) 40 mg PO DAILY [facility] Last Admin: 03/22/19 09:49 Dose: 40 mg Ropinirole HCl (Requip -) 0.25 mg PO DAILY [facility] Tamsulosin HCl (Flomax -) 0.4 mg PO DAILY@0830 [facility] Last Admin: 03/22/19 08:47 Dose: 0.4 mg Tramadol HCl (Ultram -) 50 mg PO BID [facility] Last Admin: 03/22/19 09:50 Dose: 50 mg Trazodone HCl (Desyrel -) 25 mg PO HS [facility] - Objective Vital Signs: Vital Signs Temperature 98.1 F 03/22/19 05:55 Pulse Rate 56 L 03/22/19 05:55 Respiratory Rate 20 03/22/19 05:55 Blood Pressure 126/68 03/22/19 05:55 O2 Sat by Pulse Oximetry (%) 100 03/21/19 20:22 Constitutional: Yes: Calm Eyes: Yes: Conjunctiva Clear HENT: Yes: Atraumatic Neck: Yes: Supple Cardiovascular: Yes: S1, S2 Respiratory: Yes: CTA Bilaterally Gastrointestinal: Yes: Soft Genitourinary: Yes: WNL Musculoskeletal: Yes: WNL Edema: Yes Edema: LLE: 1+, RLE: 1+ Neurological: Yes: Oriented Psychiatric: Yes: Oriented Labs: CBC, BMP 03/22/19 06:30 INR, PTT INR 1.10 (0.83-1.09) H 03/22/19 06:30 Assessment/Plan Current Medications Generic Name Dose Route Start Last Admin Trade Name Freq PRN Reason Stop Dose Admin Budesonide/Formoterol Fumarate 2 puff 03/21/19 22:00 03/22/19 09:53 Symbicort 160/4.5mcg - IH 2 puff BID [facility]ERO Administration Folic Acid 1 mg 03/22/19 10:00 03/22/19 09:49 Folic Acid - PO 1 mg DAILY [facility] Administration Furosemide 40 mg 03/22/19 10:00 03/22/19 09:49 Lasix - PO 40 mg DAILY [facility]ERO Administration Gabapentin 300 mg 03/21/19 22:00 03/22/19 09:50 Neurontin - PO 300 mg BID PIERO Administration Hydralazine HCl 10 mg 03/22/19 06:00 03/22/19 06:34 Apresoline - PO 10 mg TID [facility]ERO Administration Lactulose 20 gm 03/22/19 08:19 Cephulac (Oral Use) PO TID PRN CONSTIPATION Levetiracetam 500 mg 03/21/19 22:00 03/22/19 09:49 Keppra - PO 500 mg BID PIERO Administration Levofloxacin 250 mg 03/23/19 06:00 Levaquin - PO DAILY@0600 [facility] Melatonin 5 mg 03/21/19 16:15 Melatonin PO HS PRN INSOMNIA Pancrelipase 1 cap 03/21/19 17:30 03/22/19 08:48 Kwame Curry 36,000 Units Capsule PO 1 cap TIDCM [facility] Administration Pantoprazole Sodium 40 mg 03/22/19 10:00 03/22/19 09:49 Protonix - PO 40 mg DAILY [facility]ERO Administration Ropinirole HCl 0.25 mg 03/22/19 10:00 Requip - PO DAILY [facility] Tamsulosin HCl 0.4 mg 03/22/19 08:30 03/22/19 08:47 Flomax - PO 0.4 mg DAILY@0830 [facility] Administration Tramadol HCl 50 mg 03/21/19 22:00 03/22/19 09:50 Ultram - PO 50 mg BID PIERO Administration Trazodone HCl 25 mg 03/22/19 22:00 Desyrel - PO HS PIERO Impression 1. CKD 2. Hep C 3. liver cirrhosis 4. ascites 5. epilepsy 6. substance abuse 7. hx of lobectomy 8. diarrhea 9. abd pain 10. hyperkalemia Plan - follow labs - aldactone on hold as potassium was elevated - cont lasix - GI follow up - monitor renal function Dr Williamson
[2019-03-22 14:06] LABS: INR 1.1 (0.83-1.09)
[2019-03-22 14:29] LABS: ALBUMIN 2.5 g/dl (3.4-5.0); BILIRUBIN,TOTAL 1.1 mg/dL (0.2-1); BLOOD UREA NITROGEN 27.2 mg/dL (7-18); CALCIUM 8.8 mg/dL (8.5-10.1); CREATININE 2.1 mg/dL (0.55-1.3); MAGNESIUM 1.9 mg/dL (1.8-2.4); POTASSIUM 4.5 mmol/L (3.5-5.1); TOT PROT 7.3 g/dl (6.4-8.2)
[2019-03-22 14:32] LABS: PERITONEAL RBC 230 /mm3
[2019-03-22 15:19] LABS: PERITONEAL FLUID LYMPHOCYTE 28 %; PERITONEAL FLUID NEUTROPHIL 12 %
[2019-03-22 15:20] LABS: PERITONEAL FLUID MACROPHAGE 55 %; PERITONEAL FLUID MESOTHELIAL 7 %
[2019-03-22] MEDS ORDERED: traZODone HCL 50 MG TABLET (FP) PO SCH (22:00)
[2019-03-23] MEDS: hydrALAZINE HCL 10 MG TABLET PO SCH ×3 (06:21→14:27)
[2019-03-23] MEDS: LIPASE/PROTEASE/AMYLASE 36,000 UNIT CAPSULE PO SCH ×3 (07:25→11:53)
--- NOTE | 2019-03-23 08:21 | DS ---
Physical Exam: SUBJECTIVE: Patient seen and examined The pt is a 64M w/ a history of HTN, HCV s/p treatment, liver cancer s/p left lobe resection (12/2018 at [facility]) who presents for 3 days of generalized (mostly lower) abdominal pain. Patient states he feels distended and tension in his lower abdomen and that it has increased in size over the past three days. He was recently admitted for paracentesis on 03/08/19 discharged on 03/11 Denies fevers, chills, shortness of breath, chest pain, n/v/d. OBJECTIVE: Vital Signs Period Temp Pulse Resp BP Sys/Eisenberg Pulse Ox Last 24 Hr 98.0 F-98.4 F 79-91 16-20 116-142/68-82 100-100 PHYSICAL EXAM Constitutional: Yes: No Distress, Calm, Thin Eyes: Yes: WNL, Conjunctiva Clear, EOM Intact HENT: Yes: WNL, Atraumatic, Normocephalic Neck: Yes: WNL, Supple, Trachea Midline Cardiovascular: Yes: WNL, Regular Rate and Rhythm, Bradycardia Respiratory: Yes: WNL, Regular, CTA Bilaterally Gastrointestinal: Yes: Normal Bowel Sounds, Ascites, Distention ...Rectal Exam: Yes: Deferred Breast(s): Yes: WNL Musculoskeletal: Yes: Back Pain (chronic lower) Extremities: Yes: WNL Edema: No Peripheral Pulses WNL: Yes Integumentary: Yes: WNL Neurological: Yes: WNL, Alert, Oriented ...Motor Strength: WNL (uses rolling walker to ambulate) Psychiatric: Yes: WNL, Alert, Oriented LABS Laboratory Results - last 24 hr 03/22/19 03/22/19 03/22/19 11:00 11:00 11:00 PT with INR INR Sodium Potassium Chloride Carbon Dioxide Anion Gap BUN Creatinine Est GFR (CKD-EPI)AfAm Est GFR (CKD-EPI)NonAf POC Glucometer Random Glucose Calcium Magnesium Total Bilirubin AST ALT Alkaline Phosphatase Total Protein Albumin Fluid Glucose Cancelled Fluid Total Protein Fluid Albumin Cancelled Peritoneal WBC 246 Peritoneal RBC 230 Periton Neutrophils 12 Periton Lymphocytes 28 Periton Mesothelial 7 Periton Macrophages 55 03/22/19 03/22/19 03/22/19 11:00 13:25 13:25 PT with INR 13.00 INR 1.10 H Sodium 143 Potassium 4.5 Chloride 111 H Carbon Dioxide 24 Anion Gap 7 L BUN 27.2 H Creatinine 2.1 H Est GFR (CKD-EPI)AfAm 37.16 Est GFR (CKD-EPI)NonAf 32.07 POC Glucometer Random Glucose 77 Calcium 8.8 Magnesium 1.9 Total Bilirubin 1.1 H AST 38 H ALT 32 Alkaline Phosphatase 212 H Total Protein 7.3 Albumin 2.5 L Fluid Glucose Fluid Total Protein Cancelled Fluid Albumin Peritoneal WBC Peritoneal RBC Periton Neutrophils Periton Lymphocytes Periton Mesothelial Periton Macrophages 03/22/19 03/23/19 21:54 06:24 PT with INR INR Sodium Potassium Chloride Carbon Dioxide Anion Gap BUN Creatinine Est GFR (CKD-EPI)AfAm Est GFR (CKD-EPI)NonAf POC Glucometer 116 108 Random Glucose Calcium Magnesium Total Bilirubin AST ALT Alkaline Phosphatase Total Protein Albumin Fluid Glucose Fluid Total Protein Fluid Albumin Peritoneal WBC Peritoneal RBC Periton Neutrophils Periton Lymphocytes Periton Mesothelial Periton Macrophages HOSPITAL COURSE: Date of Admission:03/21/19 Date of Discharge: 03/23/19 - ....Imaging Chest X-ray: Image Reviewed (no effusion or infiltrates) Ultrasound: Report Reviewed (large amount of ascites) Problem List - Problems (1) HCC (hepatocellular carcinoma) Assessment/Plan: s/p liver resection for HCC. Pt to follow with scow hand at [facility] (has appointment on 03/[address] Ly) (2) Acute on chronic kidney failure Assessment/Plan: acute on CKD Cr 2.3, K 5.6--> Cr back to baseline 2.1 & K 4.5 Dr Valerio will continue to follow as outpatient Lokelma given x 2 days and K normalized. Can restart small dose of aldactone to manage ascites monitor lytes (3) History of resection of liver Assessment/Plan: To follow with Dr Ly [facility] (4) Hepatic encephalopathy Assessment/Plan: on lactulose during last admission but wasnt taking now c/w lactulose titrating to BM at home (5) Ascites Assessment/Plan: continue lasix and aldactone on discharge to prevent reaccumulation paracentesis done in IR-fluid sent and so SBP. Will contrinue levaquin when discharged for prevention of SBP (6) Prophylactic measure Assessment/Plan: FEN cont renal diet on discharge (7) Epilepsy Assessment/Plan: continue keppra (8) Cirrhosis (9) Hepatitis C (10) Hypertension Assessment/Plan: c/w home hydralazine on discharge Patient stable for discharge to home with follow up with nephrology and hepatology Minutes to complete discharge: 35 Discharge Summary Reason For Visit: CKD,ASCITES OF LIVER, ABD PAIN Current Active Problems ARF (acute renal failure) (Acute) Acute on chronic kidney failure (Acute) Ascites due to alcoholic cirrhosis (Acute) Ascites of liver (Acute) Epilepsy (Acute) HCC (hepatocellular carcinoma) (Acute) History of resection of liver (Acute) Prophylactic measure (Acute) CKD (chronic kidney disease) (Chronic) Procedures: Principal: Paracentesis Hospital Course: HOSPITAL COURSE: Date of Admission:03/21/19 Date of Discharge: 03/23/19 - ....Imaging Chest X-ray: Image Reviewed (no effusion or infiltrates) Ultrasound: Report Reviewed (large amount of ascites) Problem List - Problems (1) HCC (hepatocellular carcinoma) Assessment/Plan: s/p liver resection for HCC. Pt to follow with scow hand at [facility] (has appointment on 03/[address] Ly) (2) Acute on chronic kidney failure Assessment/Plan: acute on CKD Cr 2.3, K 5.6--> Cr back to baseline 2.1 & K 4.5 Dr Valerio will continue to follow as outpatient Lokelma given x 2 days and K normalized. Can restart small dose of aldactone to manage ascites monitor lytes (3) History of resection of liver Assessment/Plan: To follow with Dr Ly [facility] (4) Hepatic encephalopathy Assessment/Plan: on lactulose during last admission but wasnt taking now c/w lactulose titrating to BM at home (5) Ascites Assessment/Plan: continue lasix and aldactone on discharge to prevent reaccumulation paracentesis done in IR-fluid sent and so SBP. Will contrinue levaquin when discharged for prevention of SBP (6) Prophylactic measure Assessment/Plan: FEN cont renal diet on discharge (7) Epilepsy Assessment/Plan: continue keppra (8) Cirrhosis (9) Hepatitis C (10) Hypertension Assessment/Plan: c/w home hydralazine on discharge Patient stable for discharge to home with follow up with nephrology and hepatology Condition: Improved - Instructions Diet, Activity, Other Instructions: Renal diet. Limit fluid intake Referrals: Bismark Williamson MD [Staff Physician] - - Home Medications Comprehensive Discharge Medication List: Ambulatory Orders levETIRAcetam [Keppra -] 500 mg PO BID tablet 12/06/16 Tamsulosin HCl [Flomax -] 0.4 mg PO DAILY 11/16/17 Furosemide [Lasix] 40 mg PO DAILY #30 tablet 02/07/18 Multivitamin with Iron [Multivitamins with Iron] 1 each PO DAILY 04/27/18 Pantoprazole Sodium [Protonix -] 40 mg PO DAILY 04/27/18 Budesonide/Formeterol Fumarate [SYMBICORT 160/4.5mcg -] 1 inh PO BID 06/20/18 Xalatan 0.005% Eye Drops - 1 drop OU DAILY 06/20/18 Albuterol 0.083% Nebulizer Belen [Ventolin 0.083% Nebulizer Soln -] 1 amp IH Q4H PRN 11/24/18 Gabapentin 300 mg PO BID 11/24/18 Hydralazine HCl 10 mg PO Q8H 03/09/19 Tramadol HCl 50 mg PO BID 03/09/19 traZODone HCL [Trazodone HCl] 25 mg PO DAILY 03/09/19 Lipase/Protease/Amylase [Kwame Curry 36,000 Units Capsule] 1 cap PO DAILY capsule. 03/10/19 Melatonin 5 mg PO HS PRN tab 03/10/19 Ropinirole HCl [Requip -] 0.25 mg PO DAILY tablet 03/10/19 Folic Acid - 1 mg PO DAILY tablet 03/11/19 Lactulose (Oral Use) [Cephulac -] 20 gm PO TID PRN #1 ea 03/23/19 Nadolol [Corgard -] 20 mg PO DAILY #30 tablet 03/23/19 levoFLOXacin [Levaquin -] 250 mg PO DAILY@0600 #30 tablet 03/23/19 Problem List - Problems (1) HCC (hepatocellular carcinoma) Code(s): C22.0 - LIVER CELL CARCINOMA (2) Acute on chronic kidney failure Code(s): N17.9 - ACUTE KIDNEY FAILURE, UNSPECIFIED; N18.9 - CHRONIC KIDNEY DISEASE, UNSPECIFIED (3) History of resection of liver Code(s): Z90.49 - ACQUIRED ABSENCE OF OTHER SPECIFIED PARTS OF DIGESTIVE TRACT (4) Hepatic encephalopathy Code(s): K72.90 - HEPATIC FAILURE, UNSPECIFIED WITHOUT COMA (5) Ascites Code(s): R18.8 - OTHER ASCITES Qualifiers: Ascites type: other type Qualified Code(s): R18.8 - Other ascites (6) Prophylactic measure Code(s): Z29.9 - ENCOUNTER FOR PROPHYLACTIC MEASURES, UNSPECIFIED (7) Epilepsy Code(s): G40.909 - EPILEPSY, UNSP, NOT INTRACTABLE, WITHOUT STATUS EPILEPTICUS (8) Cirrhosis Code(s): K74.60 - UNSPECIFIED CIRRHOSIS OF LIVER Qualifiers: (9) Hepatitis C Code(s): B19.20 - UNSPECIFIED VIRAL HEPATITIS C WITHOUT HEPATIC COMA (10) Hypertension Code(s): I10 - ESSENTIAL (PRIMARY) HYPERTENSION This patient is new to me today: No Emergency Visit: Yes ED Registration Date: 03/21/19 Care time: The patient presented to the Emergency Department on the above date and was hospitalized for further evaluation of their emergent condition. Critical Care patient: No - Discharge Referral Referred to [facility] Med P.C.: No
[2019-03-23 08:23] LABS: HEMATOCRIT 32.5 % (35.4-49); HEMOGLOBIN 10.8 GM/dL (11.7-16.9); MCH 29.5 pg (25.7-33.7); MCHC 33.1 g/dl (32.0-35.9); MEAN CELL VOLUME 89.1 fl (80-96); MEAN PLT VOLUME 9.9 fl (7.5-11.1); PLATELET COUNT 78 K/MM3 (134-434); RBC 3.65 M/mm3 (4.00-5.60); WHITE BLOOD COUNT 5.9 K/mm3 (4.0-10.0)
[2019-03-23] MEDS ORDERED: PT OWN MED DRAWER 7, Y5N ONE (08:55)
[2019-03-23] MEDS: TAMSULOSIN HCL 0.4 MG CAP PO SCH (09:04)
[2019-03-23] MEDS: FOLIC ACID 1 MG TABLET (FP) PO SCH (09:04)
[2019-03-23] MEDS: traMADol HCL 50 MG TABLET PO SCH (09:05)
[2019-03-23] MEDS: FUROSEMIDE 40 MG TABLET (FP) PO SCH (09:05)
[2019-03-23] MEDS: GABAPENTIN 300 MG CAPSULE (FP) PO SCH (09:05)
[2019-03-23] MEDS: PANTOPRAZOLE 40 MG TABLET (FP) PO SCH (09:05)
[2019-03-23] MEDS: levETIRAcetam 500 MG TABLET (FP) PO SCH (09:05)
[2019-03-23] MEDS: rOPINIRole HCL 0.25 MG TABLET PO SCH (09:06)
[2019-03-23] MEDS: BUDESONIDE/FORMETEROL FUMARATE 160/4.5 mcg INHALER IH SCH (09:07)
[2019-03-23] MEDS ORDERED: NADOLOL 20 MG TABLET (FP) PO SCH (10:00)
--- NOTE | 2019-03-23 14:17 | PN ---
Progress Note, Physician Chief Complaint: Pt seen and examined at bedside. He is awake and alert. He has an outpt appointment with the top inventory control executive. - Current Medication List Current Medications: Active Medications Budesonide/Formoterol Fumarate (Symbicort 160/4.5mcg -) 2 puff IH BID [facility] Last Admin: 03/23/19 09:07 Dose: 2 puff Folic Acid (Folic Acid -) 1 mg PO DAILY [facility] Last Admin: 03/23/19 09:04 Dose: 1 mg Furosemide (Lasix -) 40 mg PO DAILY [facility] Last Admin: 03/23/19 09:05 Dose: 40 mg Gabapentin (Neurontin -) 300 mg PO BID [facility] Last Admin: 03/23/19 09:05 Dose: 300 mg Hydralazine HCl (Apresoline -) 10 mg PO TID [facility] Last Admin: 03/23/19 06:21 Dose: 10 mg Lactulose (Cephulac (Oral Use)) 20 gm PO TID PRN PRN Reason: CONSTIPATION Levetiracetam (Keppra -) 500 mg PO BID [facility] Last Admin: 03/23/19 09:05 Dose: 500 mg Levofloxacin (Levaquin -) 250 mg PO DAILY@0600 [facility] Last Admin: 03/23/19 06:21 Dose: 250 mg Melatonin (Melatonin) 5 mg PO HS PRN PRN Reason: INSOMNIA Nadolol (Corgard -) 20 mg PO DAILY [facility] Last Admin: 03/23/19 11:04 Dose: 20 mg Pancrelipase (Creon Dr 36,000 Units Capsule) 1 cap PO TIDCM [facility] Last Admin: 03/23/19 11:53 Dose: 1 cap Pantoprazole Sodium (Protonix -) 40 mg PO DAILY [facility] Last Admin: 03/23/19 09:05 Dose: 40 mg Ropinirole HCl (Requip -) 0.25 mg PO DAILY [facility] Last Admin: 03/23/19 09:06 Dose: 0.25 mg Spironolactone (Aldactone -) 25 mg PO BID [facility] Tamsulosin HCl (Flomax -) 0.4 mg PO DAILY@0830 [facility] Last Admin: 03/23/19 09:04 Dose: 0.4 mg Tramadol HCl (Ultram -) 50 mg PO BID [facility] Last Admin: 03/23/19 09:05 Dose: 50 mg Trazodone HCl (Desyrel -) 25 mg PO HS [facility] Last Admin: 03/22/19 21:48 Dose: 25 mg - Objective Vital Signs: Vital Signs Temperature 98.1 F 03/23/19 09:04 Pulse Rate 89 03/23/19 09:04 Respiratory Rate 20 03/23/19 09:04 Blood Pressure 119/66 03/23/19 09:04 O2 Sat by Pulse Oximetry (%) 100 03/23/19 09:00 Constitutional: Yes: Calm Eyes: Yes: Conjunctiva Clear HENT: Yes: Atraumatic Neck: Yes: Supple Cardiovascular: Yes: S1, S2 Respiratory: Yes: CTA Bilaterally Gastrointestinal: Yes: Normal Bowel Sounds, Soft Genitourinary: Yes: WNL Musculoskeletal: Yes: WNL Extremities: Yes: WNL Edema: Yes Edema: LLE: Trace, RLE: Trace Neurological: Yes: Oriented Psychiatric: Yes: Oriented Labs: CBC, BMP 03/23/19 07:44 03/22/19 13:25 INR, PTT INR 1.10 (0.83-1.09) H 03/22/19 13:25 Problem List - Problems (1) Acute on chronic kidney failure Code(s): N17.9 - ACUTE KIDNEY FAILURE, UNSPECIFIED; N18.9 - CHRONIC KIDNEY DISEASE, UNSPECIFIED (2) Ascites of liver Code(s): R18.8 - OTHER ASCITES Assessment/Plan Current Medications Generic Name Dose Route Start Last Admin Trade Name Freq PRN Reason Stop Dose Admin Budesonide/Formoterol Fumarate 2 puff 03/21/19 22:00 03/23/19 09:07 Symbicort 160/4.5mcg - IH 2 puff BID PIERO Administration Folic Acid 1 mg 03/22/19 10:00 03/23/19 09:04 Folic Acid - PO 1 mg DAILY [facility]ERO Administration Furosemide 40 mg 03/22/19 10:00 03/23/19 09:05 Lasix - PO 40 mg DAILY [facility]ERO Administration Gabapentin 300 mg 03/21/19 22:00 03/23/19 09:05 Neurontin - PO 300 mg BID PIERO Administration Hydralazine HCl 10 mg 03/22/19 06:00 03/23/19 06:21 Apresoline - PO 10 mg TID PIERO Administration Lactulose 20 gm 03/22/19 08:19 Cephulac (Oral Use) PO TID PRN CONSTIPATION Levetiracetam 500 mg 03/21/19 22:00 03/23/19 09:05 Keppra - PO 500 mg BID PIERO Administration Levofloxacin 250 mg 03/23/19 06:00 03/23/19 06:21 Levaquin - PO 250 mg DAILY@0600 [facility]ERO Administration Melatonin 5 mg 03/21/19 16:15 Melatonin PO HS PRN INSOMNIA Nadolol 20 mg 03/23/19 10:00 03/23/19 11:04 Corgard - PO 20 mg DAILY [facility]ERO Administration Pancrelipase 1 cap 03/21/19 17:30 03/23/19 11:53 Creon 36,000 Units Capsule PO 1 cap TIDCM [facility] Administration Pantoprazole Sodium 40 mg 03/22/19 10:00 03/23/19 09:05 Protonix - PO 40 mg DAILY [facility]ERO Administration Ropinirole HCl 0.25 mg 03/22/19 10:00 03/23/19 09:06 Requip - PO 0.25 mg DAILY [facility] Administration Spironolactone 25 mg 03/23/19 22:00 Aldactone - PO BID [facility]ERO Tamsulosin HCl 0.4 mg 03/22/19 08:30 03/23/19 09:04 Flomax - PO 0.4 mg DAILY@0830 [facility] Administration Tramadol HCl 50 mg 03/21/19 22:00 03/23/19 09:05 Ultram - PO 50 mg BID [facility]ERO Administration Trazodone HCl 25 mg 03/22/19 22:00 03/22/19 21:48 Desyrel - PO 25 mg HS [facility]ERO Administration Impression 1. CKD 2. Hep C 3. liver cirrhosis 4. ascites 5. epilepsy 6. substance abuse 7. hx of lobectomy 8. diarrhea 9. abd pain 10. hyperkalemia Plan - cont diuretics - monitor renal function - will see in office - will need close hepatology follow up - pt will come back if ascites recurs - discussed with medical team Dr Williamson
[2019-03-23 14:28] VITALS: BP 136/71; PULSE 71; TEMP 98.4
[2019-03-23 16:07] LABS: BODY FLUID ALBUMIN 0.5 g/dL (.)
[2019-03-23] MEDS ORDERED: SPIRONOLACTONE 25 MG TABLET (FP) PO SCH (22:00)
--- NOTE | 2019-03-27 17:17 | PATH ---
Cytology Non-Gynecological Report Patient Name: COLTON VALENTINO [facility]. Rec. #: [id number] /Age/Gender: 1955 (Age: 64) / M Account: [id number] Location: [address] [place] [address]/[facility] Taken: 03/22/2019 Received: 03/22/2019 Reported: 03/27/2019 Physicians: Juanito Soto M.D. Specimen(s) Received PERITONEAL FLUID Clinical History Ascites Final Diagnosis PERITONEAL FLUID, PARACENTESIS: SATISFACTORY FOR EVALUATION BENIGN (NO MALIGNANT CELLS IDENTIFIED) MESOTHELIAL CELLS, MACROPHAGES, AND LYMPHOCYTES PRESENT. Electronically Signed Nikolay Hurtado M.D. Gross Description Approximately 30cc of yellow fluid received fixed in 50% alcohol. One cytofunnel and one cellblock prepared.
== END 2019-03-23 15:52 | disposition home or self-care (01) | DRG 433 ==
LOC: JER 10:41 → JERBED 15:12 → J6S 19:21
PROVIDERS: ADMIT Internal Medicine; ATTEND Nurse Practitioner Acute Care
PROC: 0W9G3ZX Drainage of Peritoneal Cavity, Percutaneous Approach, Diagnostic (ICD-10-PCS; principal; 2019-03-22)
DX: K70.31 Alcoholic cirrhosis of liver with ascites (principal); N17.9 Acute kidney failure, unspecified; C22.0 Liver cell carcinoma; I12.9 Hypertensive chronic kidney disease with stage 1 through stage 4 chronic kidney disease, or unspecified chronic kidney disease; E87.5 Hyperkalemia; F14.11 Cocaine abuse, in remission; B19.20 Unspecified viral hepatitis C without hepatic coma; N18.9 Chronic kidney disease, unspecified; R19.7 Diarrhea, unspecified
CPT/HCPCS: 36415; 71045-TC-FY; 76098-TC-FY; 76705-TC; 76942-TC; 80053; 81003; 82042; 82150; 82465; 82945; 82962; 83615; 83735; 83986; 84157; 84478; 85025; 85027; 85610; 87070; 87075; 87086; 87102; 87116; 87205; 87206; 87210; 87899; 88108; 88305-TC; 89051; 93005; 93010; 99284-25

== ENCOUNTER 2019-04-10 11:59 | Emergency (ER) | payer OTHER ==
[2019-04-10 12:21] VITALS: BP 134/75; PULSE 50; TEMP 98.7; BMI 23.3
--- NOTE | 2019-04-10 12:46 | PDOC ---
History of Present Illness - General Chief Complaint: Pain Stated Complaint: ABD PAIN History Source: Patient Exam Limitations: No Limitations - History of Present Illness Initial Comments: 04/10/19 13:20 64 yo M with a with a hx of HTN, HCV s/p resection at [facility] (left lobe 12/2018), and cirrhosis with complications arising from esophageal varices (ablated via banding) presents to the emergency department with 3 days of generalized abdominal pain most acute located in the lower abdomen bilaterally with abdominal distension. Per the patient, he states he was last drained within the last month. He is followed by Dr. Ly at [facility], but has not followed up with them since discharge. Per the patient, the abdominal pain is consistent with his previous ascites episodes. Denies the following: fevers, chills, SOB, chest pain , nausea, vomiting, tremors, confusion, dizziness, lightheadedness, dysuria, hematuria, diarrhea, hematochezia, and leg pain/swelling. Allergies: PCN and ASA Past History - Past Medical History Allergies/Adverse Reactions: Allergies Allergy/AdvReac Type Severity Reaction Status Date / Time Penicillins Allergy Unknown Verified 04/10/19 12:21 aspirin AdvReac Intermediate Verified 04/10/19 12:21 Home Medications: Ambulatory Orders levETIRAcetam [Keppra -] 500 mg PO BID tablet 12/06/16 Tamsulosin HCl [Flomax -] 0.4 mg PO DAILY 11/16/17 Furosemide [Lasix] 40 mg PO DAILY #30 tablet 02/07/18 Multivitamin with Iron [Multivitamins with Iron] 1 each PO DAILY 04/27/18 Pantoprazole Sodium [Protonix -] 40 mg PO DAILY 04/27/18 Budesonide/Formeterol Fumarate [SYMBICORT 160/4.5mcg -] 1 inh PO BID 06/20/18 Xalatan 0.005% Eye Drops - 1 drop OU DAILY 06/20/18 Gabapentin 300 mg PO BID 11/24/18 Hydralazine HCl 10 mg PO Q8H 03/09/19 Tramadol HCl 50 mg PO BID 03/09/19 traZODone HCL [Trazodone HCl] 25 mg PO DAILY 03/09/19 Lipase/Protease/Amylase [[place] 36,000 Units Capsule] 1 cap PO DAILY capsule. 03/10/19 Melatonin 5 mg PO HS PRN tab 03/10/19 Ropinirole HCl [Requip -] 0.25 mg PO DAILY tablet 03/10/19 Folic Acid - 1 mg PO DAILY tablet 03/11/19 Lactulose (Oral Use) [Cephulac -] 20 gm PO TID PRN #1 ea 03/23/19 Nadolol [Corgard -] 20 mg PO DAILY #30 tablet 03/23/19 Spironolactone [Aldactone -] 25 mg PO BID #60 tablet 03/23/19 levoFLOXacin [Levaquin -] 250 mg PO DAILY@0600 #30 tablet 03/23/19 traZODone HCL [Desyrel -] 25 mg PO HS tablet 03/23/19 Furosemide [Lasix] 40 mg PO BID 7 Days #14 tablet 04/10/19 Cardiac Disorders: (CKD) CVA: (hepatic encephalopathy) COPD: No CHF: No Diabetes: No GI Disorders: Yes (GI bleed;GERD;ESOPHAGEAL VARICES) Disorders: Yes (CKD,STONES,BPH, hepatitis B and C) HTN: Yes Hypercholesterolemia: Yes Liver Disease: Yes (CIRRHOSIS,HEP C) Seizures: Yes Thyroid Disease: No - Surgical History Abdominal Surgery: Yes (EGD,COLONOSCOPY) - Immunization History Immunization Up to Date: Yes - Psycho Social/Smoking Cessation Hx Smoking History: Unknown if ever smoked Have you smoked in the past 12 months: No Number of Cigarettes Smoked Daily: 1 If you are a former smoker, when did you quit?: 2017 Information on smoking cessation initiated: No 'Breaking Loose' booklet given: 09/10/13 Hx Alcohol Use: No Drug/Substance Use Hx: No Substance Use Type: None Hx Substance Use Treatment: No Review of Systems - Review of Systems Able to Perform ROS?: Yes Is the patient limited [place] proficient: No Constitutional: No: Chills, Diaphoresis, Fever, Weakness HEENTM: No: Eye Pain, Ear Pain, Nose Pain, Throat Pain, Mouth Pain Respiratory: No: Cough, Shortness of Breath, Hemoptysis Cardiac (ROS): No: Chest Pain, Lightheadedness, Palpitations, Syncope, Chest Tightness ABD/GI: Yes: Abdominal Distended, Abdominal cramping. No: Constipated, Diarrhea , Nausea, Rectal Bleeding, Vomiting, Tarry Stools : No: Burning, Dysuria, Hematuria, Incontinence Musculoskeletal: No: Back Pain, Joint Pain, Neck Pain Integumentary: No: Bruising, Erythema, Rash Neurological: No: Headache, Numbness, Tingling, Tremors Psychiatric: No: Change in Appetite Endocrine: No: Unexplained Weight Gain Hematologic/Lymphatic: No: Anemia *Physical Exam - Vital Signs Last Vital Signs Temp Pulse Resp BP Pulse Ox 98.7 F 50 L 16 134/75 95 04/10/19 12:00 04/10/19 12:00 04/10/19 12:00 04/10/19 12:00 04/10/19 12:00 - Physical Exam General Appearance: Yes: Nourished, Appropriately Dressed. No: Apparent Distress, Intoxicated HEENT: positive: EOMI, CORAL, Normal Voice, Symmetrical, Pharynx Normal, Hearing Grossly Normal. negative: Pale Conjunctivae, Scleral Icterus (R), Scleral Icterus (L), Muffled/Hoarse voice, Pharyngeal Erythema, Tonsillar Exudate, Tonsillar Erythema, Nasal Congestion, Rhinorrhea, Sinus Tenderness, Excessive drooling Neck: positive: Trachea midline, Supple. negative: Tender, Lymphadenopathy (R) , Lymphadenopathy (L), Tender lateral, Tender midline Respiratory/Chest: positive: Lungs Clear, Normal Breath Sounds. negative: Chest Tender, Respiratory Distress, Decreased Breath Sounds, Paradoxal Breathing , Crackles, Rales Cardiovascular: positive: Regular Rhythm, Regular Rate, S1, S2. negative: Systolic Murmur Gastrointestinal/Abdominal: positive: Normal Bowel Sounds, Tender (mild diffuse tenderness. distended abdomen), Soft, Distended Lymphatic: negative: Adenopathy Musculoskeletal: positive: Normal Inspection. negative: CVA Tenderness, Vertebral Tenderness Extremity: positive: Normal Capillary Refill, Normal Inspection, Normal Range of Motion. negative: Tender Integumentary: positive: Normal Color, Dry, Warm Neurologic: positive: materials inspector II-XII NML intact, Fully Oriented, Alert, Normal Mood/ Affect, Normal Response ED Treatment Course - LABORATORY CBC & Chemistry Diagram: 04/10/19 13:00 04/10/19 13:00 Medical Decision Making - Medical Decision Making 64 yo M with a with a hx of HTN, HCV s/p resection at [facility] (left lobe 12/2018), and cirrhosis with complications arising from esophageal varices (ablated via banding) presents to the emergency department with 3 days of generalized abdominal pain most acute located in the lower abdomen bilaterally with abdominal distension. Initial vitals: Initial Vital Signs Temp Pulse Resp BP Pulse Ox 98.7 F 50 L 16 134/75 95 04/10/19 12:00 04/10/19 12:00 04/10/19 12:00 04/10/19 12:00 04/10/19 12:00 Work up: ddx: patient presents with distended abdomen. per the patient, he had been drained recently. denies fevers and AMS. will contact IR for paracentesis. the patient will have cbc, cmp, and fluid analysis to rule out SBP. Laboratory Tests 04/10/19 04/10/19 04/10/19 13:00 13:00 13:00 WBC 5.6 RBC 4.25 Hgb 12.4 Hct 38.2 D MCV 89.7 MCH 29.3 MCHC 32.6 RDW 18.0 H Plt Count 67 L MPV 10.3 Absolute Neuts (auto) 3.4 Total Counted 100 Neutrophils % 60.9 Neutrophils % (Manual) 63.0 Lymphocytes % 13.6 Lymphocytes % (Manual) 12.0 D Monocytes % 20.5 H Monocytes % (Manual) 20 H Eosinophils % 3.9 Eosinophils % (Manual) 4.0 Basophils % 1.1 D Nucleated RBC % 0 PT with INR INR Sodium 140 Potassium 4.6 Chloride 110 H Carbon Dioxide 26 Anion Gap 4 L BUN 33.2 H Creatinine 2.7 H Est GFR (CKD-EPI)AfAm 27.43 Est GFR (CKD-EPI)NonAf 23.66 Random Glucose 69 L Calcium 8.9 Total Bilirubin 0.6 AST 51 H ALT 35 Alkaline Phosphatase 244 H Ammonia 24.00 Total Protein 8.0 Albumin 2.8 L Lipase 516 H Fluid Source POC Fluid pH Fluid WBC Fluid RBC Fluid Neutrophils Fluid Lymphocytes Fluid Glucose Fluid Total Protein Fluid Albumin Body Fluid LDH Source Fluid Amylase Fluid Cholesterol Fluid Triglycerides Pleural Monocytes Pleural Macrophages Pleural Mesothelial Pleural Diff Comment 04/10/19 04/10/19 04/10/19 13:00 16:17 16:17 WBC RBC Hgb Hct MCV MCH MCHC RDW Plt Count MPV Absolute Neuts (auto) Total Counted Neutrophils % Neutrophils % (Manual) Lymphocytes % Lymphocytes % (Manual) Monocytes % Monocytes % (Manual) Eosinophils % Eosinophils % (Manual) Basophils % Nucleated RBC % PT with INR 13.10 H INR 1.11 H Sodium Potassium Chloride Carbon Dioxide Anion Gap BUN Creatinine Est GFR (CKD-EPI)AfAm Est GFR (CKD-EPI)NonAf Random Glucose Calcium Total Bilirubin AST ALT Alkaline Phosphatase Ammonia Total Protein Albumin Lipase Fluid Source Peritoneal fluid POC Fluid pH 7.8 Fluid WBC 259 Fluid RBC 383 Fluid Neutrophils 2 Fluid Lymphocytes 6 Fluid Glucose 104 Fluid Total Protein 1.1 Fluid Albumin 0.5 Body Fluid LDH Source 46 Fluid Amylase 58 Fluid Cholesterol 17 Fluid Triglycerides 19 Pleural Monocytes 4 Pleural Macrophages 85 Pleural Mesothelial 3 Pleural Diff Comment Manual diff done No elevated white count. patient known to have SILVANA and is followed with renal and hepatology. Spoke to Dr. Williamson with nephrology who states to have the patient follow up with him in 1 week and to give prescription for lasix. Patient tolerated the procedure well and was able to ambulate on their own volition. patient agrees to follow up with hepatology, renal, and PMD within 1 week after discharge. Dispo: Discharge *DC/Admit/Observation/Transfer Diagnosis at time of Disposition: Ascites of liver, Hepatitis C, Abdominal pain - Discharge Dispostion Disposition: HOME Condition at time of disposition: Fair Decision to Admit order: No - Prescriptions Prescriptions: Furosemide [Lasix] 40 mg PO BID 7 Days #14 tablet - Referrals Referrals: Kwadwo Osborne MD [Primary Care Provider] - Bismark Williamson MD [Staff Physician] - - Patient Instructions Printed Discharge Instructions: DI for Ascites, DI for Abdominal Paracentesis Additional Instructions: You were seen in the emergency department for the evaluation of your distended abdomen. You had 2.85 liters of fluid drained by interventional radiology. In addition, you have a kidney injury. You have been prescribed 40 mg of lasix to take twice a day. Please follow up with the assistant unit forester, Dr. Williamson within 3 days after discharge. In addition, you need to see the balancing machine set up worker at [facility]. This is very important. If you do not properly follow up with the assistant unit forester and balancing machine set up worker your clinical condition can worsen. Please return to the emergency department if you have fevers, worsening abdominal pain, confusion, and uncontrollable nausea and vomiting. Thank you. - Post Discharge Activity Discharge - Discharge Information Problems reviewed: Yes Clinical Impression/Diagnosis: Ascites of liver, Hepatitis C, Abdominal pain Condition: Fair Disposition: HOME - Additional Discharge Information Prescriptions: Furosemide [Lasix] 40 mg PO BID 7 Days #14 tablet - Follow up/Referral Referrals: Kwadwo Osborne MD [Primary Care Provider] - Bismark Williamson MD [Staff Physician] - - Patient Discharge Instructions Patient Printed Discharge Instructions: DI for Ascites, DI for Abdominal Paracentesis Additional Instructions: You were seen in the emergency department for the evaluation of your distended abdomen. You had 2.85 liters of fluid drained by interventional radiology. In addition, you have a kidney injury. You have been prescribed 40 mg of lasix to take twice a day. Please follow up with the assistant unit forester, Dr. Williamson within 3 days after discharge. In addition, you need to see the balancing machine set up worker at [facility]. This is very important. If you do not properly follow up with the assistant unit forester and balancing machine set up worker your clinical condition can worsen. Please return to the emergency department if you have fevers, worsening abdominal pain, confusion, and uncontrollable nausea and vomiting. Thank you. - Post Discharge Activity
[2019-04-10] MEDS ORDERED: morphine CARPU-JECT 4 MG/1 ML DISP.SYRIN IVPUSH ONE (12:51)
[2019-04-10] MEDS ORDERED: morphine SULFATE 4 MG/ML VIAL ONE (13:13)
[2019-04-10 13:19] LABS: BASO % 1.1 % (0-2.0); EOS % 3.9 % (0-4.5); HEMATOCRIT 38.2 % (35.4-49); HEMOGLOBIN 12.4 GM/dL (11.7-16.9); LYMPH % 13.6 % (8-40); MCH 29.3 pg (25.7-33.7); MCHC 32.6 g/dl (32.0-35.9); MEAN CELL VOLUME 89.7 fl (80-96); MEAN PLT VOLUME 10.3 fl (7.5-11.1); MONO % 20.5 % (3.8-10.2); NEUT % 60.9 % (42.8-82.8); PLATELET COUNT 67 K/MM3 (134-434); RBC 4.25 M/mm3 (4.00-5.60); WHITE BLOOD COUNT 5.6 K/mm3 (4.0-10.0)
[2019-04-10 13:31] LABS: INR 1.11 (0.83-1.09); PROTHROMBIN TIME (PATIENT) 13.1 SEC (9.7-13.0)
--- NOTE | 2019-04-10 13:45 | PDOC ---
Attending Attestation - Resident Resident Name: Lowell Arceo - ED Attending Attestation I have performed the following: I have examined & evaluated the patient, The case was reviewed & discussed with the resident, I agree w/resident's findings & plan, Exceptions are as noted - HPI HPI: 04/10/19 15:23 Reviewed Residents HPI - Physicial Exam PE: 04/10/19 15:24 Reviewed Residents PE - Medical Decision Making 64 y/o male with a history of alcoholic / CHC cirrhosis with sequelae of esophageal varices (ablated via banding), hepatic encephalopathy, HCC presents to the ED for Paracentesis 2/2 ascites sent by his GI MD IR preformed therapeutic paracentesis. CR. Elevated. Dw Dr. Williamson Renal Recommends Lasix and f/u within 1 week Findings the need for follow up and strict return instructions
[2019-04-10 13:55] LABS: ALBUMIN 2.8 g/dl (3.4-5.0); BILIRUBIN,TOTAL 0.6 mg/dL (0.2-1); BLOOD UREA NITROGEN 33.2 mg/dL (7-18); CALCIUM 8.9 mg/dL (8.5-10.1); CREATININE 2.7 mg/dL (0.55-1.3); POTASSIUM 4.6 mmol/L (3.5-5.1)
[2019-04-10 18:10] LABS: BF WBC & OTHER NUCLEATED CELLS 259 /mm3
[2019-04-10 19:29] LABS: BODY FLUID MACROPHAGES 85 %; BODY FLUID MESOTHELIAL 3 %; BODY FLUID MONOCYTE 4 %
[2019-04-12 13:08] LABS: BODY FLUID ALBUMIN 0.5 g/dL (.)
--- NOTE | 2019-04-16 15:03 | PATH ---
Cytology Non-Gynecological Report Patient Name: COLTON VALENTINO [facility]. Rec. #: [id number] /Age/Gender: 1955 (Age: 64) / M Account: [id number] Location: EMERGENCY ROOM Taken: 04/10/2019 Received: 04/11/2019 Reported: 04/16/2019 Physicians: Asim Gilbert M.D. Specimen(s) Received PERITONEAL FLUID Clinical History Ascites Final Diagnosis PERITONEAL FLUID, PARACENTESIS: SATISFACTORY FOR EVALUATION. BENIGN (NO MALIGNANT CELLS IDENTIFIED). MACROPHAGES, MESOTHELIAL CELLS, LYMPHOCYTES PRESENT. Electronically Signed Nikolay Hurtado M.D. Gross Description Approximately 50cc of yellow fluid received fixed in 50% alcohol. One cytofunnel and one cellblock prepared.
== END 2019-04-10 15:46 | disposition home or self-care (01) ==
LOC: JER 11:59
PROC: 3E033NZ Introduction of Analgesics, Hypnotics, Sedatives into Peripheral Vein, Percutaneous Approach (ICD-10-PCS; principal; 2019-04-10)
PROC: 0W9G3ZX Drainage of Peritoneal Cavity, Percutaneous Approach, Diagnostic (ICD-10-PCS; 2019-04-10)
PROC: BW40ZZZ Ultrasonography of Abdomen (ICD-10-PCS; 2019-04-10)
DX: K70.31 Alcoholic cirrhosis of liver with ascites (principal); B18.2 Chronic viral hepatitis C; I25.10 Atherosclerotic heart disease of native coronary artery without angina pectoris; I13.10 Hypertensive heart and chronic kidney disease without heart failure, with stage 1 through stage 4 chronic kidney disease, or unspecified chronic kidney disease; N18.9 Chronic kidney disease, unspecified; G40.909 Epilepsy, unspecified, not intractable, without status epilepticus; Z87.19 Personal history of other diseases of the digestive system
CPT/HCPCS: 36415; 49083; 76098-TC-FY; 76998-TC; 80053; 82042; 82140; 82150; 82465; 82945; 83615; 83690; 83986; 84157; 84478; 85025; 85610; 87070; 87075; 87102; 87116; 87205; 87206; 87210; 87899; 88108; 88305-TC; 96374; 99282-25

== ENCOUNTER 2019-06-05 12:54 | Inpatient (IN) | payer OTHER ==
[2019-06-05 14:35] LABS: BASO % 0.3 % (0-2.0); EOS % 3.6 % (0-4.5); HEMATOCRIT 39.8 % (35.4-49); HEMOGLOBIN 13.1 GM/dL (11.7-16.9); LYMPH % 15.3 % (8-40); MCH 29.4 pg (25.7-33.7); MEAN CELL VOLUME 89.3 fl (80-96); MEAN PLT VOLUME 9.9 fl (7.5-11.1); NEUT % 63.8 % (42.8-82.8); PLATELET COUNT 76 K/MM3 (134-434); RBC 4.46 M/mm3 (4.00-5.60); RDW 18.4 % (11.9-15.9); WHITE BLOOD COUNT 6.8 K/mm3 (4.0-10.0)
[2019-06-05 14:46] LABS: INR 1.08 (0.83-1.09); PROTHROMBIN TIME (PATIENT) 12.7 SEC (9.7-13.0)
[2019-06-05 15:01] LABS: ALK PHOS 208 U/L (45-117); AMYLASE 197 U/L (25-115); ANION GAP 3 MMOL/L (8-16); BILIRUBIN,TOTAL 1.2 mg/dL (0.2-1); CALCIUM 9.4 mg/dL (8.5-10.1); CHLORIDE 107 mmol/L (98-107); CO2 26 mmol/L (21-32); GLUCOSE,RANDOM 79 mg/dL (74-106); LIPASE 618 U/L (73-393); POTASSIUM 5.1 mmol/L (3.5-5.1); SGOT/AST 48 U/L (15-37); SGPT/ALT 34 U/L (13-61); SODIUM 136 mmol/L (136-145); TOT PROT 8.7 g/dl (6.4-8.2)
[2019-06-05 15:15] LABS: EPI CELLS 1.4 /HPF (0-5/HPF); HYALINE CASTS 0 /lpf (0-8); PH,URINE 6.5 (5.0-8.0); URINE APPEARANCE CLEAR; URINE BILIRUBIN NEGATIVE (NEGATIVE); URINE COLOR YELLOW; URINE GLUCOSE (UA) NEGATIVE (NEGATIVE); URINE KETONE NEGATIVE (NEGATIVE); URINE LEUK ESTERASE TRACE (NEGATIVE); URINE NITRITE NEGATIVE (NEGATIVE); URINE PROTEIN NEGATIVE (NEGATIVE); URINE RBC 1 /hpf (0-4); URINE WBC 3 /hpf (0-5)
[2019-06-05 15:16] LABS: PLATELET ESTIMATE DECREASED
[2019-06-05] MEDS ORDERED: SODIUM CHLORIDE 1,000 ML IV STA (15:20)
[2019-06-05] MEDS ORDERED: LACTULOSE 20 GM/30 ML UDC (FOR ORAL USE ONLY) PO ONE (15:20)
--- NOTE | 2019-06-05 15:25 | PDOC ---
History of Present Illness - General Chief Complaint: Weakness Stated Complaint: Lightheaded Time Seen by Provider: 06/05/19 13:16 History Source: Patient Exam Limitations: No Limitations - History of Present Illness Initial Comments: 06/05/19 15:25 Mr Lopez is a 64 yo M h/o HTN, prior h/o Hep C with cirrhosis (ascites and esophageal banding), liver mass s/p Left liver lobectomy, pancreatic insufficiency, chronic back pain who presents to the ER for assessment of somnolence. Pt son states that today he was supposed to go to his day program at [facility]. When son arrived to his home, patient was quite somnolent. Patient did get up and get dressed however when the son returned to actually drive him to his program, he found the patient in bed, sleeping. Patient denies complaints however is notably somnolent. Per son, no fever no chills. No abdominal pain. No nausea, vomiting, diarrhea. Outside of patient's chronic back pain, there are no new symptoms of pain Patient denies recent seizures Allergies: NKA Past surgical history: EGD,COLONOSCOPY, Liver lobectomy for liver cancer., Social history: former smoker, quit 2017. PCP: Kwadwo Osborne ROS: GENERAL/CONSTITUTIONAL: Yes: generalized weakness No: fever, chills, loss of appetite. HEAD, EYES, EARS, NOSE AND THROAT: No: change in vision, ear pain, discharge, sore throat, throat swelling. CARDIOVASCULAR: No: chest pain, lightheadedness, palpitations, syncope RESPIRATORY: No: cough, shortness of breath, wheezing, hemoptysis, stridor. GASTROINTESTINAL: No: nausea, vomiting, diarrhea, abdominal cramping GENITOURINARY: No: dysuria, hematuria, frequency, urgency, flank pain. MUSCULOSKELETAL: No: back pain, neck pain, joint pain, muscle swelling or pain SKIN AND BREASTS: No: lesions, pallor, rash or easy bruising. NEUROLOGIC: No: headache, vertigo, paresthesias, weakness HEMATOLOGIC/LYMPHATIC: No: anemia, easy bleeding, swelling nodes. PE: GENERAL: The patient is in no acute distress. ENT: Ears normal, nares patent, oropharynx clear without exudates. Dry mucous membranes. NECK: Normal range of motion, supple LUNGS: Breath sounds equal, clear to auscultation bilaterally. No wheezes, and no crackles. HEART:Regular rate and rhythm, normal S1 and S2 without murmur, rub or gallop. ABDOMEN: Soft, protruberant, no fluid wave, non tender to palpation. EXTREMITIES: Normal range of motion, no edema. NEUROLOGICAL: Cranial nerves II through XII grossly intact. Normal speech. No focal neurological deficits. SKIN: Warm, Dry, normal turgor, no rashes or lesions noted. Past History - Past Medical History Allergies/Adverse Reactions: Allergies Allergy/AdvReac Type Severity Reaction Status Date / Time Penicillins Allergy Unknown Verified 04/10/19 12:21 aspirin AdvReac Intermediate Verified 04/10/19 12:21 Home Medications: Ambulatory Orders levETIRAcetam [Keppra -] 500 mg PO BID tablet 12/06/16 Multivitamin with Iron [Multivitamins with Iron] 1 each PO DAILY 04/27/18 Pantoprazole Sodium [Protonix -] 40 mg PO DAILY 04/27/18 Budesonide/Formeterol Fumarate [SYMBICORT 160/4.5mcg -] 1 inh PO BID 06/20/18 Folic Acid - 1 mg PO DAILY tablet 03/11/19 Lactulose (Oral Use) [Cephulac -] 20 gm PO TID PRN #1 ea 03/23/19 Spironolactone [Aldactone -] 25 mg PO BID #60 tablet 03/23/19 traZODone HCL [Desyrel -] 25 mg PO HS tablet 03/23/19 Furosemide [Lasix] 40 mg PO BID 7 Days #14 tablet 04/10/19 Lipase/Protease/Amylase [Creon Dr 36,000 Units Capsule] 1 cap PO TID 06/05/19 Tiotropium [place] [Spiriva] 1 inh IH DAILY 06/05/19 Cancer: Yes (hepatocellular carcinoma) Cardiac Disorders: (CKD) CVA: (hepatic encephalopathy) COPD: No CHF: No Diabetes: No GI Disorders: Yes (GI bleed;GERD;ESOPHAGEAL VARICES) Disorders: Yes (CKD,STONES,BPH, hepatitis B and C) HTN: Yes Hypercholesterolemia: Yes Liver Disease: Yes (CIRRHOSIS,HEP C) Seizures: Yes Thyroid Disease: No - Surgical History Abdominal Surgery: Yes (EGD,COLONOSCOPY) - Immunization History Immunization Up to Date: Yes - Psycho Social/Smoking Cessation Hx Smoking History: Former smoker Have you smoked in the past 12 months: No Number of Cigarettes Smoked Daily: 1 If you are a former smoker, when did you quit?: 2017 Information on smoking cessation initiated: No 'Breaking Loose' booklet given: 09/10/13 Hx Alcohol Use: No (denies) Drug/Substance Use Hx: No (denies) Substance Use Type: None Hx Substance Use Treatment: No *Physical Exam - Vital Signs Last Vital Signs Temp Pulse Resp BP Pulse Ox 97.6 F 58 L 18 124/68 97 06/05/19 13:14 06/05/19 14:40 06/05/19 14:40 06/05/19 14:40 06/05/19 14:40 ED Treatment Course - LABORATORY CBC & Chemistry Diagram: 06/05/19 14:15 06/05/19 14:15 - ADDITIONAL ORDERS Additional order review: Laboratory Results 06/05/19 06/05/19 06/05/19 15:06 14:15 14:15 RBC MCV MCH MCHC RDW MPV Absolute Neuts (auto) Neutrophils % Lymphocytes % Monocytes % Eosinophils % Basophils % Nucleated RBC % Platelet Estimate Platelet Comment PT with INR 12.70 INR 1.08 Sodium Potassium Chloride Carbon Dioxide Anion Gap BUN Creatinine Est GFR (CKD-EPI)AfAm Est GFR (CKD-EPI)NonAf Random Glucose Lactic Acid 2.1 H Calcium Total Bilirubin AST ALT Alkaline Phosphatase Ammonia Creatine Kinase Troponin I Total Protein Albumin Total Amylase Lipase Urine Color Yellow Urine Appearance Clear Urine pH 6.5 Ur Specific [place] 1.012 Urine Protein Negative Urine Glucose (UA) Negative Urine Ketones Negative Urine Blood Negative Urine Nitrite Negative Urine Bilirubin Negative Urine Urobilinogen 1.0 Ur Leukocyte Esterase Trace Urine WBC (Auto) 3 Urine RBC (Auto) 1 Urine Casts (Auto) 0 U Epithel Cells (Auto) 1.4 Urine Bacteria (Auto) 1.0 06/05/19 06/05/19 06/05/19 14:15 14:15 14:15 RBC 4.46 MCV 89.3 MCH 29.4 MCHC 33.0 RDW 18.4 H MPV 9.9 Absolute Neuts (auto) 4.3 Neutrophils % 63.8 Lymphocytes % 15.3 Monocytes % 17.0 H Eosinophils % 3.6 Basophils % 0.3 Nucleated RBC % 0 Platelet Estimate Decreased Platelet Comment PT with INR INR Sodium 136 Potassium 5.1 Chloride 107 Carbon Dioxide 26 Anion Gap 3 L BUN 43.0 H Creatinine 3.0 H Est GFR (CKD-EPI)AfAm 24.15 Est GFR (CKD-EPI)NonAf 20.83 Random Glucose 79 Lactic Acid Calcium 9.4 Total Bilirubin 1.2 H AST 48 H ALT 34 Alkaline Phosphatase 208 H Ammonia 131.50 H Creatine Kinase 92 Troponin I < 0.02 Total Protein 8.7 H Albumin 3.0 L Total Amylase 197 H Lipase 618 H Urine Color Urine Appearance Urine pH Ur Specific [place] Urine Protein Urine Glucose (UA) Urine Ketones Urine Blood Urine Nitrite Urine Bilirubin Urine Urobilinogen Ur Leukocyte Esterase Urine WBC (Auto) Urine RBC (Auto) Urine Casts (Auto) U Epithel Cells (Auto) Urine Bacteria (Auto) 06/05/19 14:15 RBC 4.46 MCV 89.3 MCHC 33.0 RDW 18.4 H MPV 9.9 Neutrophils % 63.8 Lymphocytes % 15.3 Monocytes % 17.0 H Eosinophils % 3.6 Basophils % 0.3 - RADIOLOGY Radiology Studies Ordered: Category Date Time Status CHEST X-RAY PORTABLE* [RAD] Stat Radiology 06/05/19 13:18 Taken Medical Decision Making - Medical Decision Making 64-year-old male presents emergency department due to alterations in mental status. Patient son feels that he is more sleepy, and has generalized weakness. Differential diagnosis is broad and includes: ACS, electrolyte abnormality, hepatic encephalopathy, dehydration, We will do: Labs, EKG, chest x-ray Consider CT head IV hydration (patient clinically dehydrated) We will reassess 06/05/19 15:20 Laboratory Tests 04/10/19 04/10/19 06/05/19 13:00 13:00 14:15 WBC 5.6 Hgb 12.4 Hct 38.2 D Plt Count 67 L BUN 33.2 H Creatinine 2.7 H Random Glucose 69 L Total Bilirubin AST ALT Alkaline Phosphatase Ammonia 131.50 H Troponin I Total Amylase Lipase 06/05/19 06/05/19 14:15 14:15 WBC 6.8 Hgb 13.1 Hct 39.8 Plt Count 76 L BUN 43.0 H Creatinine 3.0 H Random Glucose 79 Total Bilirubin 1.2 H AST 48 H ALT 34 Alkaline Phosphatase 208 H Ammonia Troponin I < 0.02 Total Amylase 197 H Lipase 618 H 06/05/19 15:31 EKG: Twelve-lead EKG was performed and reviewed by me. There is normal sinus rhythm with a normal rate of 60 bpm. The axis is normal. The intervals are normal. There are no ST or T wave abnormalities. Impression: Normal twelve-lead EKG 06/05/19 16:21 Clinical Impression: HEPATIC ENCEPHALOPATHY RENAL INSUFFICIENCY DEHYDRATION Discharge - Discharge Information Problems reviewed: Yes Clinical Impression/Diagnosis: Hepatic encephalopathy Condition: Fair - Admission Yes - Follow up/Referral Referrals: Kwadwo Osborne MD [Primary Care Provider] - - Patient Discharge Instructions - Post Discharge Activity
[2019-06-05] MEDS ORDERED: LACTULOSE 20 GM/30 ML UDC (FOR ORAL USE ONLY) ONE (15:38)
--- NOTE | 2019-06-05 17:43 | PN ---
Teaching Attending Note Name of Resident: Emily Sherman ATTENDING PHYSICIAN STATEMENT I saw and evaluated the patient. I reviewed the resident's note and discussed the case with the resident. I agree with the resident's findings and plan as documented. SUBJECTIVE: Patient is a 64 y/o male with a Pmhx of alcoholic /with liver cirrhosis with sequelae of esophageal varices (ablated via banding), hepatic encephalopathy, HCC s/p recent resection at [facility] presented today c/o acute change of mental changes with gait unsteadiness. Denies any shortness of breath, no nausea or vomiting. Denies any abdominal pain. no fever or chills. OBJECTIVE: Vital Signs Temperature 97.8 F 06/05/19 17:09 Pulse Rate 52 L 06/05/19 17:09 Respiratory Rate 18 06/05/19 17:09 Blood Pressure 122/78 06/05/19 17:09 O2 Sat by Pulse Oximetry (%) 97 06/05/19 17:09 GENERAL: The patient is awake, alert, and oriented, in no acute distress, temporal wasting. HEAD: Normal with no signs of trauma. EYES: PERRL, extraocular movements intact, sclera anicteric, conjunctiva clear. ENT: Ears normal, oropharynx clear without exudates, moist mucous membranes. NECK: Trachea midline, full range of motion, supple. LUNGS: Breath sounds equal, clear to auscultation bilaterally, no wheezes, no crackles, no accessory muscle use. HEART: Regular rate and rhythm, S1, S2 without murmur, rub or gallop. ABDOMEN: Soft, nontender, mild distention , normoactive bowel sounds, no guarding, no rebound. EXTREMITIES: 2+ pulses, warm, well-perfused, no edema. NEUROLOGICAL: Cranial nerves II through XII grossly intact. Normal speech, gait not observed. PSYCH: Normal mood, normal affect. SKIN: Warm, dry, normal turgor, no rashes or lesions noted CBCD WBC 6.8 K/mm3 (4.0-10.0) 06/05/19 14:15 RBC 4.46 M/mm3 (4.00-5.60) 06/05/19 14:15 Hgb 13.1 GM/dL (11.7-16.9) 06/05/19 14:15 Hct 39.8 % (35.4-49) 06/05/19 14:15 MCV 89.3 fl (80-96) 06/05/19 14:15 MCHC 33.0 g/dl (32.0-35.9) 06/05/19 14:15 RDW 18.4 % (11.9-15.9) H 06/05/19 14:15 Plt Count 76 K/MM3 (134-434) L 06/05/19 14:15 MPV 9.9 fl (7.5-11.1) 06/05/19 14:15 CMP Sodium 136 mmol/L (136-145) 06/05/19 14:15 Potassium 5.1 mmol/L (3.5-5.1) 06/05/19 14:15 Chloride 107 mmol/L (98-107) 06/05/19 14:15 Carbon Dioxide 26 mmol/L (21-32) 06/05/19 14:15 Anion Gap 3 MMOL/L (8-16) L 06/05/19 14:15 BUN 43.0 mg/dL (7-18) H 06/05/19 14:15 Creatinine 3.0 mg/dL (0.55-1.3) H 06/05/19 14:15 Random Glucose 79 mg/dL (74-106) 06/05/19 14:15 Calcium 9.4 mg/dL (8.5-10.1) 06/05/19 14:15 Total Bilirubin 1.2 mg/dL (0.2-1) H 06/05/19 14:15 AST 48 U/L (15-37) H 06/05/19 14:15 ALT 34 U/L (13-61) 06/05/19 14:15 Alkaline Phosphatase 208 U/L (45-117) H 06/05/19 14:15 Total Protein 8.7 g/dl (6.4-8.2) H 06/05/19 14:15 Albumin 3.0 g/dl (3.4-5.0) L 06/05/19 14:15 CARDIAC ENZYMES Creatine Kinase 92 U/L (26-308) 06/05/19 14:15 Troponin I < 0.02 ng/ml (0.00-0.05) 06/05/19 14:15 Current Medications Generic Name Dose Route Start Last Admin Trade Name Freq PRN Reason Stop Dose Admin Sodium Chloride 1,000 mls @ 75 mls/hr 06/05/19 15:20 06/05/19 15:43 Normal Saline - IV 06/06/19 04:39 75 mls/hr ASDIR STA Administration Home Medications Medication Instructions Recorded levETIRAcetam [Keppra -] 500 mg PO BID tablet 12/06/16 Multivitamin with Iron 1 each PO DAILY 04/27/18 [Multivitamins with Iron] Pantoprazole Sodium [Protonix -] 40 mg PO DAILY 04/27/18 Budesonide/Formeterol Fumarate 1 inh PO BID 06/20/18 [SYMBICORT 160/4.5mcg -] Folic Acid - 1 mg PO DAILY tablet 03/11/19 Lactulose (Oral Use) [Cephulac -] 20 gm PO TID PRN #1 ea 03/23/19 Spironolactone [Aldactone -] 25 mg PO BID #60 tablet 03/23/19 traZODone HCL [Desyrel -] 25 mg PO HS tablet 03/23/19 Furosemide [Lasix] 40 mg PO BID 7 Days #14 tablet 04/10/19 Lipase/Protease/Amylase [Creon Dr 1 cap PO TID 06/05/19 36,000 Units Capsule] Tiotropium [place] [Spiriva] 1 inh IH DAILY 06/05/19 Laboratory Tests 06/05/19 06/05/19 06/05/19 14:15 14:15 14:15 BUN 43.0 H Creatinine 3.0 H Lactic Acid 2.[address] of the head: official reading is pending. ASSESSMENT AND PLAN: Patient is a 64 year old male with Pmhx of HTN, CKD 3, COPD, CBP, HCV (s/p treatment), Liver Cirrhosis, Hx Liver Ca s/p left lobe resection 01/10 at [facility]) , remote alcohol/drug abuse presents with 1 day of having mental status change and unsteady on his feet. # Acute change of mental status due to metabolic encephalopathy , will continue Lactulose 20gm TId, as per patient( was not taking it at home as prescribed) repeat Ammonia level 130's today. Hold trazodone since elevated ammonia level. # Liver Cirrhosis/Hx Liver Ca s/p resection/Hx HepC (treated) - with secondary portal HTN: continue lasix/protonix/lasix , hold spironolactone since elevated Potassium. will monitor # CKD 3 - Stable, Nephrology follow up # HTN - continue Spironolactone/hydralazine # Normocytic Anemia, likely sec to CKD/Cirrhosis - Iron/Folate/B12 levels normal. . # BPH - continue Flomax # Thrombocytopenia - sec to Cirrhosis. No bleeding/bruising. continue to monitor # Abnormal ECG -no change from previous EKG ; normal LV function on Echo 12/09, no symptoms of ischemia. # Seizure Disorder - Continue Keppra. # Hx of COpd continue home meds; spiriva and symbicort DVT Px - Heparin SQ held due to Thrombocytopenia
[2019-06-05] MEDS ORDERED: LACTULOSE 20 GM/30 ML UDC (FOR ORAL USE ONLY) PO PRN (18:45)
--- NOTE | 2019-06-05 18:54 | HP ---
CHIEF COMPLAINT: Tired and confused PCP: Dr. Jama HISTORY OF PRESENT ILLNESS: 64 M PMH HTN, Hep C with cirrhosis (ascites & esophageal banding), liver cancer s/p left liver lobectomy, pancreatic insufficiency, COPD, CKD stage 3, seizure disorder, who presents today with increased lethargy and confusion. Patient's son brought patient to ED today when he noticed the patient was more somnolent and sleepy in the morning before going to his day program at [facility]. 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 Patient was complaining of being nervous today when I spoke with him. He denies any confusion. Patient denies any chest pain, headache, shortness of breath, abdominal pain, nausea, vomiting, diarrhea, or blood in his stool or urine. He does not endorse taking his medications as directed, as he stated that there are days where he doesn't take any of his medications. Patient was sleepy and had difficulty following the conversation and needed constant redirection. ER course was notable for: (1)Lactic acid was 2.1, Ammonia was 131.50, Amylase was 190, Lipase was 618. (2)EKG was Normal Sinus rhythm with sinus arrythmia. (3)Chest X-Ray was done and clear. Patient was given Lactulose 20 mg PO and 1L of NS. Recent Travel: None PAST MEDICAL HISTORY: HTN, Hep C with cirrhosis (ascites & esophageal banding), liver cancer s/p left liver lobectomy, pancreatic insufficiency, COPD, chronic back pain, CKD stage 3 Family Medical History: Paternal CKD, DM, Maternal: HTN, DM PAST SURGICAL HISTORY: Left liver lobectomy Social History: Smoking: Former smoker, quit 5 years ago: 25 pack year history Alcohol: Quit 1 year ago, 45 years of alcohol use Drugs: Cocaine use, quit 1 year ago Allergies Penicillins Allergy (Unknown, Verified 04/10/19 12:21) aspirin Adverse Reaction (Intermediate, Verified 04/10/19 12:21) HOME MEDICATIONS: Home Medications Medication Instructions Recorded levETIRAcetam [Keppra -] 500 mg PO BID tablet 12/06/16 Multivitamin with Iron 1 each PO DAILY 04/27/18 [Multivitamins with Iron] Pantoprazole Sodium [Protonix -] 40 mg PO DAILY 10/04/18 Budesonide/Formeterol Fumarate 1 inh PO BID 06/20/18 [SYMBICORT 160/4.5mcg -] Folic Acid - 1 mg PO DAILY tablet 03/11/19 Lactulose (Oral Use) [Cephulac -] 20 gm PO TID PRN #1 ea 03/23/19 Spironolactone [Aldactone -] 25 mg PO BID #60 tablet 03/23/19 traZODone HCL [Desyrel -] 25 mg PO HS tablet 03/23/19 Furosemide [Lasix] 40 mg PO BID 7 Days #14 tablet 04/10/19 Lipase/Protease/Amylase [Creon Dr 1 cap PO TID 06/05/19 36,000 Units Capsule] Tiotropium [place] [Spiriva] 1 inh IH DAILY 06/05/19 REVIEW OF SYSTEMS In addition to above CONSTITUTIONAL: Absent: fever, chills, diaphoresis, generalized weakness, malaise, loss of appetite, weight change CARDIOVASCULAR: Absent: chest pain, palpitations, irregular heart rate, lightheadedness, RESPIRATORY: Absent: cough, shortness of breath, dyspnea with exertion, GASTROINTESTINAL: Absent: abdominal pain, abdominal distension, nausea, vomiting, diarrhea, constipation, melena, hematochezia GENITOURINARY: Absent: dysuria, frequency, urgency, hesitancy, hematuria SKIN: Absent: rash, itching, pallor HEMATOLOGIC/IMMUNOLOGIC: Absent: easy bleeding, easy bruising ENDOCRINE: Absent: unexplained weight gain, unexplained weight loss, heat intolerance, cold intolerance NEUROLOGIC: unsteady gait, Absent: headache, focal weakness or paresthesias, dizziness, unsteady gait, seizure, mental status changes, PHYSICAL EXAMINATION Vital Signs - 24 hr 06/05/19 06/05/19 06/05/19 13:14 13:57 14:40 Temperature 97.6 F Pulse Rate 74 Pulse Rate [ 58 L Apical] Respiratory 18 18 Rate Blood Pressure 128/73 Blood Pressure 124/68 [Left Arm] O2 Sat by Pulse 97 98 97 Oximetry (%) 06/05/19 06/05/19 17:09 18:24 Temperature 97.8 F 97.6 F Pulse Rate 66 Pulse Rate [ 52 L Apical] Respiratory 18 20 Rate Blood Pressure 114/74 Blood Pressure 122/78 [Left Arm] O2 Sat by Pulse 97 Oximetry (%) GENERAL: Awake, alert, and fully oriented, in no acute distress. Patient was extremely lethargic on examination. HEAD: Normal with no signs of trauma. EYES: Pupils equal, round and reactive to light, extraocular movements intact, sclera anicteric, conjunctiva clear. No lid lag. NECK: Normal range of motion, supple without lymphadenopathy. LUNGS: Breath sounds equal, clear to auscultation bilaterally. No wheezes, and no crackles. No accessory muscle use. HEART: Regular rate and rhythm, normal S1 and S2 without murmur, rub or gallop. ABDOMEN: Soft, nontender, not distended, normoactive bowel sounds, no guarding, no rebound, no masses. No fluid wave. Patient refused a rectal examination MUSCULOSKELETAL: Normal range of motion at all joints. No bony deformities or tenderness. No CVA tenderness. UPPER EXTREMITIES: 2+ pulses, warm, well-perfused. No cyanosis. No clubbing. No peripheral edema. LOWER EXTREMITIES: 2+ pulses, warm, well-perfused. No calf tenderness. No peripheral edema. NEUROLOGICAL: Cranial nerves II-XII grossly intact.. SKIN: Warm, dry, normal turgor, no rashes or lesions noted, normal capillary refill. Laboratory Results - last 24 hr 06/05/19 06/05/19 06/05/19 14:15 14:15 14:15 WBC 6.8 RBC 4.46 Hgb 13.1 Hct 39.8 MCV 89.3 MCH 29.4 MCHC 33.0 RDW 18.4 H Plt Count 76 L MPV 9.9 Absolute Neuts (auto) 4.3 Neutrophils % 63.8 Lymphocytes % 15.3 Monocytes % 17.0 H Eosinophils % 3.6 Basophils % 0.3 Nucleated RBC % 0 Platelet Estimate Decreased Platelet Comment PT with INR INR Sodium 136 Potassium 5.1 Chloride 107 Carbon Dioxide 26 Anion Gap 3 L BUN 43.0 H Creatinine 3.0 H Est GFR (CKD-EPI)AfAm 24.15 Est GFR (CKD-EPI)NonAf 20.83 Random Glucose 79 Lactic Acid Calcium 9.4 Total Bilirubin 1.2 H AST 48 H ALT 34 Alkaline Phosphatase 208 H Ammonia 131.50 H Creatine Kinase 92 Troponin I < 0.02 Total Protein 8.7 H Albumin 3.0 L Total Amylase 197 H Lipase 618 H Urine Color Urine Appearance Urine pH Ur Specific [place] Urine Protein Urine Glucose (UA) Urine Ketones Urine Blood Urine Nitrite Urine Bilirubin Urine Urobilinogen Ur Leukocyte Esterase Urine WBC (Auto) Urine RBC (Auto) Urine Casts (Auto) U Epithel Cells (Auto) Urine Bacteria (Auto) 06/05/19 06/05/19 06/05/19 14:15 14:15 15:06 WBC RBC Hgb Hct MCV MCH MCHC RDW Plt Count MPV Absolute Neuts (auto) Neutrophils % Lymphocytes % Monocytes % Eosinophils % Basophils % Nucleated RBC % Platelet Estimate Platelet Comment PT with INR 12.70 INR 1.08 Sodium Potassium Chloride Carbon Dioxide Anion Gap BUN Creatinine Est GFR (CKD-EPI)AfAm Est GFR (CKD-EPI)NonAf Random Glucose Lactic Acid 2.1 H Calcium Total Bilirubin AST ALT Alkaline Phosphatase Ammonia Creatine Kinase Troponin I Total Protein Albumin Total Amylase Lipase Urine Color Yellow Urine Appearance Clear Urine pH 6.5 Ur Specific [place] 1.012 Urine Protein Negative Urine Glucose (UA) Negative Urine Ketones Negative Urine Blood Negative Urine Nitrite Negative Urine Bilirubin Negative Urine Urobilinogen 1.0 Ur Leukocyte Esterase Trace Urine WBC (Auto) 3 Urine RBC (Auto) 1 Urine Casts (Auto) 0 U Epithel Cells (Auto) 1.4 Urine Bacteria (Auto) 1.0 ASSESSMENT/PLAN: 64 M with PMH of HTN, Hep C with cirrhosis (ascites & esophageal banding), liver cancer s/p left liver lobectomy, pancreatic insufficiency, COPD, CKD stage 3, seizure disorder, who presents today with altered mental status and gait instability. 1) AMS -Possibly due to hepatic encephalopathy. Patient is not taking medications as directed. Has history of liver co-morbidities -U/A negative -Ammonia is 131.80 today. -Lactic acid is 2.1. F/U Repeat -Continue Lactulose 20 gram TID -F/U Magnesium and Phosphate -F/U Head CT -F/U CBC -Holding home trazadone -Continue Keppra 500 mg PO BID -Continue Lipase, protease, amylase Creon tablet. -NS @75 ml/hr -GI consulted, appreciate recs 2) Hx of Liver cirrhosis and cancer s/p lobectomy -Continue Lasix 40 mg PO BID -Continue Protonix 40 mg PO Daily -Holding spironolactone 3)Seizure disorder -Continue Keppra 500 mg PO BID -Patient may be post-ictal after unwitnessed seizure if he isn't taking medication properly. 4)HTN -Holding spironolactone 5)Thrombocytopenia -Likely due to liver cirrhosis 6)CKD Stage 3 -Nephrology consulted, appreciate recs 7) COPD -Continue Spiriva -Continue Symbicort F: NS @ 75ml/hr E: Monitor K, Mag, Phos N: Sodium restricted diet DVT: SCD due to low platelet count Dispo:Admitted to medicine Visit type - Emergency Visit Emergency Visit: Yes ED Registration Date: 06/05/19 Care time: The patient presented to the Emergency Department on the above date and was hospitalized for further evaluation of their emergent condition. - New Patient This patient is new to me today: Yes Date on this admission: 06/05/19 - Critical Care Critical Care patient: No ATTENDING PHYSICIAN STATEMENT I saw and evaluated the patient. I reviewed the resident's note and discussed the case with the resident. I agree with the resident's findings and plan as documented. SUBJECTIVE: OBJECTIVE: ASSESSMENT AND PLAN:
[2019-06-05] MEDS: levETIRAcetam 500 MG TABLET (FP) PO SCH (21:42)
[2019-06-05] MEDS: BUDESONIDE/FORMETEROL FUMARATE 160/4.5 mcg INHALER IH SCH (21:42)
[2019-06-05 23:35] VITALS: BMI 19.3
[2019-06-06] MEDS ORDERED: FUROSEMIDE 40 MG TABLET (FP) PO SCH (06:00)
[2019-06-06 09:01] LABS: BASO % 0.4 % (0-2.0); EOS % 2.8 % (0-4.5); HEMATOCRIT 38.8 % (35.4-49); LYMPH % 12.8 % (8-40); MCH 29.8 pg (25.7-33.7); MCHC 33.5 g/dl (32.0-35.9); MEAN CELL VOLUME 89.1 fl (80-96); MEAN PLT VOLUME 10.1 fl (7.5-11.1); MONO % 12.4 % (3.8-10.2); NEUT % 71.6 % (42.8-82.8); PLATELET COUNT 79 K/MM3 (134-434); RBC 4.36 M/mm3 (4.00-5.60); RDW 18.4 % (11.9-15.9); WHITE BLOOD COUNT 7.3 K/mm3 (4.0-10.0)
[2019-06-06] MEDS ORDERED: PT OWN MED DRAWER 7, Y5N ONE (09:11)
[2019-06-06] MEDS: FOLIC ACID 1 MG TABLET (FP) PO SCH (09:12)
[2019-06-06] MEDS: levETIRAcetam 500 MG TABLET (FP) PO SCH ×2 (09:12→22:09)
[2019-06-06] MEDS: PANTOPRAZOLE 20 MG TABLET (FP) PO SCH (09:12)
[2019-06-06] MEDS: LIPASE/PROTEASE/AMYLASE 36,000 UNIT CAPSULE PO SCH ×3 (09:12→17:11)
[2019-06-06] MEDS: TIOTROPIUM BROMIDE 2.5 MCG (SPIRIVA) RESPIMAT INHALER IH SCH (09:13)
[2019-06-06] MEDS: BUDESONIDE/FORMETEROL FUMARATE 160/4.5 mcg INHALER IH SCH ×2 (09:14→22:09)
[2019-06-06 09:43] LABS: ALBUMIN 2.8 g/dl (3.4-5.0); BILIRUBIN,TOTAL 1.4 mg/dL (0.2-1); BLOOD UREA NITROGEN 39.8 mg/dL (7-18); CREATININE 2.8 mg/dL (0.55-1.3); MAGNESIUM 1.9 mg/dL (1.8-2.4); POTASSIUM 4.6 mmol/L (3.5-5.1); TOT PROT 8.1 g/dl (6.4-8.2)
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
--- NOTE | 2019-06-06 12:18 | EKG ---
Test Reason : Blood Pressure : / mmHG Vent. Rate : 060 BPM Atrial Rate : 060 BPM P-R Int : 156 ms QRS Dur : 092 ms QT Int : 426 ms P-R-T Axes : 069 010 059 degrees QTc Int : 426 ms NORMAL SINUS RHYTHM WITH SINUS ARRHYTHMIA POSSIBLE LEFT ATRIAL ENLARGEMENT SEPTAL INFARCT (CITED ON OR BEFORE 24-NOV-2018) ABNORMAL ECG WHEN COMPARED WITH ECG OF 21-MAR-2019 14:29, QUESTIONABLE CHANGE IN INITIAL FORCES OF SEPTAL LEADS Confirmed by ETHEL BOYD, CHEIKH ([id number]) on 06/06/2019 12:17:49 PM Referred By: Confirmed By:CHEIKH DAVENPORT MD
--- NOTE | 2019-06-06 13:19 | CON.GI ---
Consult Consult Specialty:: Gastroenterology Referred by:: Dr. Zavala Reason for Consultation:: Altered mental status - History of Present Illness Chief Complaint: Altered mental status History of Present Illness: 64yo male h/o ETOH/HCV cirrhosis, HCC s/p resection (12/2018), esophageal varices s/p banding presenting with altered mental status. Pt known to GI service, last seen 02/2019 with increased abdominal girth. Pt lethargic currently, provides limited history, stating "nerves" was reason for admission. On review of chart pt noted to be somnolent by son therefore prompting ED evaluation. More alert this am per nurse. Pt otherwise without complaints, denies abdominal pain, n/v, fever/chills. Reports he has been moving bowels though states he has missed doses of medications. Lives alone per pt. Follows with Dr. Ly at [facility] last seen 04/25/19 on review of [facility] records, was to supposed to have follwo up visit today and scheduled for repeat MRI in with heme/onc follow up. 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 Cardio/Vascular: Yes: HTN, Hyperlipdemia Pulmonary: Yes: COPD Gastrointestinal: Yes: Esophageal Varices (Unclear by his history), GERD Hepatobiliary: Yes: Cirrhosis (with sequelae of hepatic encephalopathy, esophageal varices, HCC ), Hepatitis C Renal/: Yes: Renal Inusuff, BPH Musculoskeletal: Yes: Chronic low back pain (discogenic disease) - Alcohol/Substance Use Hx Alcohol Use: No (denies) History of Substance Use: reports: Cocaine (states abstinence for 1 year), Heroin - Smoking History Smoking history: Former smoker Have you smoked in the past 12 months: No Aproximately how many cigarettes per day: 1 If you are a former smoker, when did you quit?: 2017 - Social History Usual Living Arrangement: Alone ADL: Support Services Occupation: not currently working History of Recent Travel: No Home Medications - Allergies Allergies/Adverse Reactions: Allergies Allergy/AdvReac Type Severity Reaction Status Date / Time Penicillins Allergy Unknown Verified 04/10/19 12:21 aspirin AdvReac Intermediate Verified 04/10/19 12:21 - Home Medications Home Medications: Ambulatory Orders levETIRAcetam [Keppra -] 500 mg PO BID tablet 12/06/16 Multivitamin with Iron [Multivitamins with Iron] 1 each PO DAILY 04/27/18 Pantoprazole Sodium [Protonix -] 20 mg PO DAILY 04/27/18 Budesonide/Formeterol Fumarate [SYMBICORT 160/4.5mcg -] 1 inh PO BID 06/20/18 Folic Acid - 1 mg PO DAILY tablet 03/11/19 Lactulose (Oral Use) [Cephulac -] 20 gm PO TID PRN #1 ea 03/23/19 Spironolactone [Aldactone -] 25 mg PO BID #60 tablet 03/23/19 traZODone HCL [Desyrel -] 25 mg PO HS tablet 03/23/19 Furosemide [Lasix] 40 mg PO BID 7 Days #14 tablet 04/10/19 Lipase/Protease/Amylase [Kwame Curry 36,000 Units Capsule] 1 cap PO TID 06/05/19 Tiotropium [place] [Spiriva] 1 inh IH DAILY 06/05/19 Ropinirole HCl 0.25 mg PO DAILY 06/06/19 Review of Systems - Review of Systems Constitutional: reports: Other (Lethargy, altered mental status) Cardiovascular: reports: No Symptoms Respiratory: reports: No Symptoms Gastrointestinal: reports: No Symptoms Musculoskeletal: reports: No Symptoms Physical Exam-GI Vital Signs: Vital Signs Temperature 97.5 F L 06/06/19 09:39 Pulse Rate 62 06/06/19 09:39 Respiratory Rate 16 06/06/19 09:39 Blood Pressure 118/67 06/06/19 09:39 O2 Sat by Pulse Oximetry (%) 99 06/06/19 09:41 Constitutional: Yes: No Distress, Calm, Cachectic, Other (Lethargic though rousable, alert/oriented x 2 (person, time)) Cardiovascular: Yes: WNL, Regular Rate and Rhythm Respiratory: Yes: WNL, Regular, CTA Bilaterally ...Palpate: Yes: Other (Abd soft, nt, nd) Edema: No Labs: CBC, BMP 06/06/19 08:50 06/06/19 08:50 INR, PTT INR 1.08 (0.83-1.09) 06/05/19 14:15 Problem List - Problems (1) Hepatic encephalopathy Assessment/Plan: 64yo male h/o ETOH/HCV cirrhosis, HCC s/p resection (12/2018), esophageal varices s/p banding (last EGD in 05/2018) presenting with altered mental status likely in setting of medication noncompliance also with acute on chronic renal disease. Last seen by hepatology at [facility] in 04/2019. -Recommend complete infectious workup r/o infectious precipitant -Blood and urine cultures -Check abd US r/o ascites, and if present paracentesis r/o SBP -Continue lactulose titrate to 2-3 loose bms -Hold diuretics for now in setting of worsening renal fctn -Check urine electrolytes -Further recommendations per nephrology -EGD for surveillance to be scheduled once clinically improved -Surveillance liver MRI due in 06/2019 (scheduled at [facility]) Code(s): K72.90 - HEPATIC FAILURE, UNSPECIFIED WITHOUT COMA
--- NOTE | 2019-06-06 13:36 | PN ---
Teaching Attending Note Name of Resident: Micah Bishop (Nephrology) ATTENDING PHYSICIAN STATEMENT I saw and evaluated the patient. I reviewed the resident's note and discussed the case with the resident. I agree with the resident's findings and plan as documented. Renal Pt is a 64 year old make with pmhx of CKD, Hep C, ascites, and liver corrhosis who presents to the ER with increased confusion. He also has decreased PO intake. PT appears dehydrated. pmhx ckd hep c ascites epilepsy social hx substance abuse allergies pcn asa family hx non contrib Current Medications Generic Name Dose Route Start Last Admin Trade Name Freq PRN Reason Stop Dose Admin Budesonide/Formoterol Fumarate 2 puff 06/05/19 22:00 06/06/19 09:14 Symbicort 160/4.5mcg - IH 2 puff BID PIERO Administration Folic Acid 1 mg 06/06/19 10:00 06/06/19 09:12 Folic Acid - PO 1 mg DAILY PIERO Administration Sodium Chloride 500 mls @ 50 mls/hr 06/06/19 13:45 06/06/19 14:32 1/2 Normal Saline IV 06/06/19 23:44 50 mls/hr ASDIR PIERO Administration Lactulose 20 gm 06/05/19 18:45 06/06/19 09:58 Cephulac (Oral Use) PO 20 gm Q8H PRN Administration CONSTIPATION Levetiracetam 500 mg 06/05/19 22:00 06/06/19 09:12 Keppra - PO 500 mg BID PIERO Administration Pancrelipase 1 cap 06/06/19 08:00 06/06/19 11:53 Kwame Curry 36,000 Units Capsule PO 1 cap TIDCM PIERO Administration Pantoprazole Sodium 40 mg 06/06/19 10:00 06/06/19 09:12 Protonix - PO 40 mg DAILY PIERO Administration Tiotropium [place] 2 puff 06/06/19 10:00 06/06/19 09:13 Spiriva Respimat IH 2 puff DAILY PIERO Administration Laboratory Tests 03/22/19 04/10/19 06/05/19 13:25 13:00 14:15 Creatinine 2.1 H 2.7 H 3.0 H Urine Protein Urine Blood 06/05/19 06/06/19 15:06 08:50 Creatinine 2.8 H Urine Protein Negative Urine Blood Negative cardio s1s2 pulm clear GI soft ext neg edema skin neg rash Impression 1. CKD 2. Hep C 3. liver cirrhosis 4. hx ascites 5. epilepsy 6. substance abuse 7. 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
[2019-06-06] MEDS ORDERED: SODIUM CHLORIDE 0.45% 500 ML IV SCH (13:45)
--- NOTE | 2019-06-06 17:59 | PN ---
Physical Exam: SUBJECTIVE: Patient seen and examined in the morning. No acute events overnight. No complaints of chest pain, shortness of breath, abdominal pain, nausea, vomiting, diarrhea, fevers, chills. OBJECTIVE: Vital Signs Period Temp Pulse Resp BP Sys/Eisenberg Pulse Ox Last 24 Hr 97.5 F-98.5 F 62-90 16-20 100-118/58-76 97-99 GENERAL: Awake, alert, and fully oriented, in no acute distress. HEAD: Normal with no signs of trauma. EYES: Pupils equal, round and reactive to light, extraocular movements intact, sclera anicteric, conjunctiva clear. No lid lag. NECK: Normal range of motion, supple without lymphadenopathy. LUNGS: Breath sounds equal, clear to auscultation bilaterally. No wheezes, and no crackles. No accessory muscle use. HEART: Regular rate and rhythm, normal S1 and S2 without murmur, rub or gallop. ABDOMEN: Soft, nontender, not distended, normoactive bowel sounds, no guarding, no rebound, no masses. No fluid wave. Patient refused a rectal examination MUSCULOSKELETAL: Normal range of motion at all joints. No bony deformities or tenderness. No CVA tenderness. UPPER EXTREMITIES: 2+ pulses, warm, well-perfused. No cyanosis. No clubbing. No peripheral edema. LOWER EXTREMITIES: 2+ pulses, warm, well-perfused. No calf tenderness. No peripheral edema. NEUROLOGICAL: Cranial nerves II-XII grossly intact.. SKIN: Warm, dry, normal turgor, no rashes or lesions noted, normal capillary refill. Laboratory Results - last 24 hr 06/06/19 06/06/19 06/06/19 08:50 08:50 08:50 WBC 7.3 RBC 4.36 Hgb 13.0 Hct 38.8 MCV 89.1 MCH 29.8 MCHC 33.5 RDW 18.4 H Plt Count 79 L MPV 10.1 Absolute Neuts (auto) 5.2 Neutrophils % 71.6 Lymphocytes % 12.8 Monocytes % 12.4 H Eosinophils % 2.8 Basophils % 0.4 Nucleated RBC % 0 Sodium 138 Potassium 4.6 Chloride 107 Carbon Dioxide 26 Anion Gap 5 L BUN 39.8 H Creatinine 2.8 H Est GFR (CKD-EPI)AfAm 26.25 Est GFR (CKD-EPI)NonAf 22.65 Random Glucose 132 H Lactic Acid 2.2 H* Calcium 9.0 Phosphorus 4.0 Magnesium 1.9 Total Bilirubin 1.4 H AST 42 H ALT 33 Alkaline Phosphatase 173 H Ammonia Total Protein 8.1 Albumin 2.8 L 06/06/19 08:50 WBC RBC Hgb Hct MCV MCH MCHC RDW Plt Count MPV Absolute Neuts (auto) Neutrophils % Lymphocytes % Monocytes % Eosinophils % Basophils % Nucleated RBC % Sodium Potassium Chloride Carbon Dioxide Anion Gap BUN Creatinine Est GFR (CKD-EPI)AfAm Est GFR (CKD-EPI)NonAf Random Glucose Lactic Acid Calcium Phosphorus Magnesium Total Bilirubin AST ALT Alkaline Phosphatase Ammonia 94.20 H Total Protein Albumin Active Medications Generic Name Dose Route Start Last Admin Trade Name Freq PRN Reason Stop Dose Admin Budesonide/Formoterol Fumarate 2 puff 06/05/19 22:00 06/06/19 09:14 Symbicort 160/4.5mcg - IH 2 puff BID PIERO Administration Folic Acid 1 mg 06/06/19 10:00 06/06/19 09:12 Folic Acid - PO 1 mg DAILY PIERO Administration Sodium Chloride 500 mls @ 50 mls/hr 06/06/19 13:45 06/06/19 14:32 1/2 Normal Saline IV 06/06/19 23:44 50 mls/hr ASDIR PIERO Administration Lactulose 20 gm 06/05/19 18:45 06/06/19 09:58 Cephulac (Oral Use) PO 20 gm Q8H PRN Administration CONSTIPATION Levetiracetam 500 mg 06/05/19 22:00 06/06/19 09:12 Keppra - PO 500 mg BID PIERO Administration Pancrelipase 1 cap 06/06/19 08:00 06/06/19 17:11 Kwame Curry 36,000 Units Capsule PO 1 cap TIDCM PIERO Administration Pantoprazole Sodium 40 mg 06/06/19 10:00 06/06/19 09:12 Protonix - PO 40 mg DAILY PIERO Administration Tiotropium [place] 2 puff 06/06/19 10:00 06/06/19 09:13 Spiriva Respimat IH 2 puff DAILY PIERO Administration ASSESSMENT/PLAN: 64 M with PMH of HTN, Hep C with cirrhosis (ascites & esophageal banding), liver cancer s/p left liver lobectomy, pancreatic insufficiency, COPD, CKD stage 3, seizure disorder, who presents today with altered mental status and gait instability. 1) AMS -Possibly due to hepatic encephalopathy. Patient is not taking medications as directed. Has history of liver co-morbidities -U/A negative -Ammonia is 94.20 today. -Lactic acid is 2.2. F/U Repeat -Continue Lactulose 20 gram TID. Monitor bowel movements. Will go up to 30 gram TID if no movements. -Magnesium 1.9 -Phosphorous 4.0 -Head CT negative. -Holding home trazadone -Continue Keppra 500 mg PO BID -Continue Lipase, protease, amylase Creon tablet. -NS @75 ml/hr -F/U urine cultures. -F/U Abdomen U/S -GI consulted, appreciate recs 2) Hx of Liver cirrhosis and cancer s/p lobectomy -Holding Lasix -Continue Protonix 40 mg PO Daily -Holding spironolactone 3)Seizure disorder -Continue Keppra 500 mg PO BID -Patient may be post-ictal after unwitnessed seizure if he isn't taking medication properly. 4)HTN -Holding spironolactone 5)Thrombocytopenia -Likely due to liver cirrhosis 6)CKD Stage 3 -F/U urine creatinine and protein ratio -Nephrology consulted, appreciate recs 7) COPD -Continue Spiriva -Continue Symbicort F: NS @ 75ml/hr E: Monitor K, Mag, Phos N: Sodium restricted diet DVT: SCD due to low platelet count Dispo:Admitted to medicine Visit type - Emergency Visit Emergency Visit: Yes ED Registration Date: 06/05/19 Care time: The patient presented to the Emergency Department on the above date and was hospitalized for further evaluation of their emergent condition. - New Patient This patient is new to me today: No - Critical Care Critical Care patient: No ATTENDING PHYSICIAN STATEMENT I saw and evaluated the patient. I reviewed the resident's note and discussed the case with the resident. I agree with the resident's findings and plan as documented. SUBJECTIVE: OBJECTIVE: ASSESSMENT AND PLAN:
--- NOTE | 2019-06-06 20:09 | PN ---
Teaching Attending Note Name of Resident: Emily Sherman ATTENDING PHYSICIAN STATEMENT I saw and evaluated the patient. I reviewed the resident's note and discussed the case with the resident. I agree with the resident's findings and plan as documented. SUBJECTIVE: no pain, no fever or chills. No GALE , no N/V . admits to not using his lactulose at home OBJECTIVE: NAD, awake, alert, knows location , age, and not year. No facail droop Cv: RRR Lungs: CTAB Abd: soft, ND, No hepatomegaly, NL BS . Ext: trace edema on LE ASSESSMENT AND PLAN: 64 y/o man with h/o Hep C , cirrhosis ,seizure DO, variceal bleed s/p banding , ETOH abuse , HCC s/p resection , GERD, gastritis, IVDU, and pancreatic insufficiency , who presented with increased lethargy. 1- Hepatic encephalopathy: - cont lactulose - US for ascitis, if positive , then IR guided paracentesis - head CT reviewed. - follow ammonia level and clinical course - send blood cx 2- SILVANA on CKD: prerenal component likely. - IVF - hold lasix 3- H/o Seizure disorder: cont keppra 4- H/o Cirrhosis . - hold lasix - cont lactulose - f/u at [facility] for repeat MRI 5- h/o GI bleed with variceal banding - stable HB 6- Thrombocytopenai: likely due to liver dz. chronic 7- DVT PX : SCDs due to thrombocytopenia
[2019-06-07 08:59] LABS: BASO % 0.8 % (0-2.0); EOS % 2.3 % (0-4.5); HEMOGLOBIN 11.9 GM/dL (11.7-16.9); LYMPH % 12.4 % (8-40); MCH 29.4 pg (25.7-33.7); MCHC 33.1 g/dl (32.0-35.9); MEAN CELL VOLUME 88.7 fl (80-96); MEAN PLT VOLUME 10.4 fl (7.5-11.1); NEUT % 69.5 % (42.8-82.8); PLATELET COUNT 74 K/MM3 (134-434); RBC 4.06 M/mm3 (4.00-5.60); RDW 18.4 % (11.9-15.9)
[2019-06-07 09:17] LABS: BLOOD UREA NITROGEN 35.7 mg/dL (7-18); CALCIUM 8.7 mg/dL (8.5-10.1); CREATININE 2.5 mg/dL (0.55-1.3); POTASSIUM 4.4 mmol/L (3.5-5.1)
[2019-06-07] MEDS ORDERED: PT OWN MED DRAWER 7, Y5N ONE ×3 (10:32→16:22)
[2019-06-07] MEDS: levETIRAcetam 500 MG TABLET (FP) PO SCH ×2 (10:33→21:26)
[2019-06-07] MEDS: FOLIC ACID 1 MG TABLET (FP) PO SCH (10:33)
[2019-06-07] MEDS: PANTOPRAZOLE 20 MG TABLET (FP) PO SCH (10:33)
[2019-06-07] MEDS: LIPASE/PROTEASE/AMYLASE 36,000 UNIT CAPSULE PO SCH ×3 (10:34→16:58)
[2019-06-07] MEDS: TIOTROPIUM BROMIDE 2.5 MCG (SPIRIVA) RESPIMAT INHALER IH SCH (10:35)
[2019-06-07] MEDS: BUDESONIDE/FORMETEROL FUMARATE 160/4.5 mcg INHALER IH SCH ×2 (10:35→21:27)
[2019-06-07] MEDS: LACTULOSE 20 GM/30 ML UDC (FOR ORAL USE ONLY) PO SCH ×2 (13:26→21:27)
--- NOTE | 2019-06-07 15:02 | PN.GI ---
GI Progress Note Subjective: No acute events Patient lethargic but awake - Objective Vital Signs: Vital Signs Temperature 98.2 F 06/07/19 14:17 Pulse Rate 73 06/07/19 14:17 Respiratory Rate 18 06/07/19 14:17 Blood Pressure 125/71 06/07/19 14:17 O2 Sat by Pulse Oximetry (%) 98 06/07/19 09:00 Constitutional: Calm Eyes: No: Sclera Icterus Cardiovascular: Yes: Bradycardia Respiratory: Yes: Diminished (at bases, poor insp effort) Gastrointestinal Inspection: No: Distention ...Auscultate: Yes: Normoactive Bowel Sounds ...Palpate: Yes: Soft. No: Hepatomegaly, Splenomegaly, Tenderness ...Percussion: No: Tympanitic Edema: No Neurological: Yes: Alert, Oriented (x3, no asterexis), Lethargy Labs: CBC, BMP 06/07/19 07:45 06/07/19 07:45 INR, PTT INR 1.08 (0.83-1.09) 06/05/19 14:15 Problem List - Problems (1) Hepatic encephalopathy Assessment/Plan: ? med compliance Added rifaximin 550mg PO BID Continue lactulose. Titrate to 3-4 loose BM's per day Needs follow-up with Dr. 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
--- NOTE | 2019-06-07 15:23 | PN ---
Progress Note, Physician History of Present Illness: Pt seen and examined at bedside. He is more awake today than yesterday. - Current Medication List Current Medications: Active Medications Budesonide/Formoterol Fumarate (Symbicort 160/4.5mcg -) 2 puff IH BID [facility] Last Admin: 06/07/19 10:35 Dose: 2 puff Folic Acid (Folic Acid -) 1 mg PO DAILY [facility] Last Admin: 06/07/19 10:33 Dose: 1 mg Lactulose (Cephulac (Oral Use)) 20 gm PO TID [facility] Last Admin: 06/07/19 13:26 Dose: 20 gm Levetiracetam (Keppra -) 500 mg PO BID [facility] Last Admin: 06/07/19 10:33 Dose: 500 mg Pancrelipase (Creon Dr 36,000 Units Capsule) 1 cap PO TIDCM [facility] Last Admin: 06/07/19 12:13 Dose: 1 cap Pantoprazole Sodium (Protonix -) 40 mg PO DAILY [facility] Last Admin: 06/07/19 10:33 Dose: 40 mg Rifaximin (Xifaxan -) 550 mg PO BID [facility] Tiotropium Irene (Spiriva Respimat) 2 puff IH DAILY [facility] Last Admin: 06/07/19 10:35 Dose: 2 puff - Objective Vital Signs: Vital Signs Temperature 98.2 F 06/07/19 14:17 Pulse Rate 73 06/07/19 14:17 Respiratory Rate 18 06/07/19 14:17 Blood Pressure 125/71 06/07/19 14:17 O2 Sat by Pulse Oximetry (%) 98 06/07/19 09:00 Constitutional: Yes: Calm Eyes: Yes: Conjunctiva Clear HENT: Yes: Atraumatic Neck: Yes: Supple Cardiovascular: Yes: S1, S2 Respiratory: Yes: CTA Bilaterally Gastrointestinal: Yes: Normal Bowel Sounds, Soft Genitourinary: Yes: WNL Musculoskeletal: Yes: Muscle Weakness Edema: No Neurological: Yes: Oriented Psychiatric: Yes: Oriented Labs: CBC, BMP 06/07/19 07:45 06/07/19 07:45 INR, PTT INR 1.08 (0.83-1.09) 06/05/19 14:15 Problem List - Problems (1) Hepatic encephalopathy Code(s): K72.90 - HEPATIC FAILURE, UNSPECIFIED WITHOUT COMA (2) ARF (acute renal failure) Code(s): N17.9 - ACUTE KIDNEY FAILURE, UNSPECIFIED Qualifiers: Acute renal failure type: unspecified Qualified Code(s): N17.9 - Acute kidney failure, unspecified Assessment/Plan Current Medications Generic Name Dose Route Start Last Admin Trade Name Freq PRN Reason Stop Dose Admin Budesonide/Formoterol Fumarate 2 puff 06/05/19 22:00 06/07/19 10:35 Symbicort 160/4.5mcg - IH 2 puff BID PIERO Administration Folic Acid 1 mg 06/06/19 10:00 06/07/19 10:33 Folic Acid - PO 1 mg DAILY [facility]ERO Administration Lactulose 20 gm 06/07/19 07:55 06/07/19 13:26 Cephulac (Oral Use) PO 20 gm TID PIERO Administration Levetiracetam 500 mg 06/05/19 22:00 06/07/19 10:33 Keppra - PO 500 mg BID PIERO Administration Pancrelipase 1 cap 06/06/19 08:00 06/07/19 12:[address] 36,000 Units Capsule PO 1 cap TIDCM PIERO Administration Pantoprazole Sodium 40 mg 06/06/19 10:00 06/07/19 10:33 Protonix - PO 40 mg DAILY PIERO Administration Rifaximin 550 mg 06/07/19 22:00 Xifaxan - PO BID PIERO Tiotropium Irene 2 puff 06/06/19 10:00 06/07/19 10:35 Spiriva Respimat IH 2 puff DAILY PIERO Administration Impression 1. CKD 2. Hep C 3. liver cirrhosis 4. hx ascites 5. epilepsy 6. substance abuse 7. hx of lobectomy Plan - renal function is improving - repeat labs in am - diuretics on hold for now - cont lactulose - gi input appreciated, rifaximin added
--- NOTE | 2019-06-07 17:26 | PN ---
Physical Exam: SUBJECTIVE: Patient seen and examined in the morning. No acute events overnight. No complaints of chest pain, shortness of breath, abdominal pain, nausea, vomiting, diarrhea. No bowel movements. OBJECTIVE: Vital Signs Period Temp Pulse Resp BP Sys/Eisenberg Pulse Ox Last 24 Hr 97.8 F-98.5 F 68-83 16-20 123-128/69-82 98-98 GENERAL: Awake, alert, and fully oriented, in no acute distress. HEAD: Normal with no signs of trauma. EYES: Pupils equal, round and reactive to light, extraocular movements intact, sclera anicteric, conjunctiva clear. No lid lag. NECK: Normal range of motion, supple without lymphadenopathy. LUNGS: Breath sounds equal, clear to auscultation bilaterally. No wheezes, and no crackles. No accessory muscle use. HEART: Regular rate and rhythm, normal S1 and S2, 2/6 systolic murmur. ABDOMEN: Soft, nontender, not distended, normoactive bowel sounds, no guarding, no rebound, no masses. No fluid wave. MUSCULOSKELETAL: Normal range of motion at all joints. No bony deformities or tenderness. No CVA tenderness. LOWER EXTREMITIES: 2+ pulses, warm, well-perfused. No calf tenderness. No peripheral edema. NEUROLOGICAL: Cranial nerves II-XII grossly intact.. SKIN: Warm, dry, normal turgor, no rashes or lesions noted, normal capillary refill. Laboratory Results - last 24 hr 06/06/19 06/06/19 06/06/19 21:48 21:48 21:48 WBC RBC Hgb Hct MCV MCH MCHC RDW Plt Count MPV Absolute Neuts (auto) Neutrophils % Lymphocytes % Monocytes % Eosinophils % Basophils % Nucleated RBC % Sodium Potassium Chloride Carbon Dioxide Anion Gap BUN Creatinine Est GFR (CKD-EPI)AfAm Est GFR (CKD-EPI)NonAf Random Glucose Lactic Acid Calcium Ammonia Ur Random Creatinine U Random Total Protein 6.9 Ur Random Sodium 54 Ur Random Urea Nitrogn 550 Urine Creatinine 108.0 Protein/Creatinin Ratio 0.1 06/06/19 06/07/19 06/07/19 21:48 07:45 07:45 WBC 7.0 RBC 4.06 Hgb 11.9 Hct 36.0 MCV 88.7 MCH 29.4 MCHC 33.1 RDW 18.4 H Plt Count 74 L MPV 10.4 Absolute Neuts (auto) 4.9 Neutrophils % 69.5 Lymphocytes % 12.4 Monocytes % 15.0 H Eosinophils % 2.3 Basophils % 0.8 Nucleated RBC % 0 Sodium Potassium Chloride Carbon Dioxide Anion Gap BUN Creatinine Est GFR (CKD-EPI)AfAm Est GFR (CKD-EPI)NonAf Random Glucose Lactic Acid 2.0 Calcium Ammonia Ur Random Creatinine 107.0 U Random Total Protein Ur Random Sodium Ur Random Urea Nitrogn Urine Creatinine Protein/Creatinin Ratio 06/07/19 06/07/19 07:45 07:45 WBC RBC Hgb Hct MCV MCH MCHC RDW Plt Count MPV Absolute Neuts (auto) Neutrophils % Lymphocytes % Monocytes % Eosinophils % Basophils % Nucleated RBC % Sodium 139 Potassium 4.4 Chloride 110 H Carbon Dioxide 23 Anion Gap 7 L BUN 35.7 H Creatinine 2.5 H Est GFR (CKD-EPI)AfAm 30.10 Est GFR (CKD-EPI)NonAf 25.97 Random Glucose 81 Lactic Acid Calcium 8.7 Ammonia 81.50 H Ur Random Creatinine U Random Total Protein Ur Random Sodium Ur Random Urea Nitrogn Urine Creatinine Protein/Creatinin Ratio Active Medications Generic Name Dose Route Start Last Admin Trade Name Freq PRN Reason Stop Dose Admin Budesonide/Formoterol Fumarate 2 puff 06/05/19 22:00 06/07/19 10:35 Symbicort 160/4.5mcg - IH 2 puff BID PIERO Administration Folic Acid 1 mg 06/06/19 10:00 06/07/19 10:33 Folic Acid - PO 1 mg DAILY PIERO Administration Lactulose 20 gm 06/07/19 07:55 06/07/19 13:26 Cephulac (Oral Use) PO 20 gm TID PIERO Administration Levetiracetam 500 mg 06/05/19 22:00 06/07/19 10:33 Keppra - PO 500 mg BID PIERO Administration Pancrelipase 1 cap 06/06/19 08:00 06/07/19 16:58 Kwame Curry 36,000 Units Capsule PO 1 cap TIDCM PIERO Administration Pantoprazole Sodium 40 mg 06/06/19 10:00 06/07/19 10:33 Protonix - PO 40 mg DAILY PIERO Administration Rifaximin 550 mg 06/07/19 22:00 Xifaxan - PO BID [facility]ERO Tiotropium [place] 2 puff 06/06/19 10:00 06/07/19 10:35 Spiriva Respimat IH 2 puff DAILY [facility] Administration ASSESSMENT/PLAN: 64 M with PMH of HTN, Hep C with cirrhosis (ascites & esophageal banding), liver cancer s/p left liver lobectomy, pancreatic insufficiency, COPD, CKD stage 3, seizure disorder, who presents today with altered mental status and gait instability. 1) AMS -Patient continued to be lethargic. -Possibly due to hepatic encephalopathy. Patient is not taking medications as directed. Has history of liver co-morbidities -U/A negative -Ammonia is 81/50 today. -Lactic acid is 2.0. trending down. -Continue Lactulose 20 gram TID. Monitor bowel movements. Will go up to 30 gram TID if no movements. -Magnesium 1.9 -Phosphorous 4.0 -Head CT negative. -Holding home trazadone -Continue Keppra 500 mg PO BID -Continue Lipase, protease, amylase Creon tablet. -NS @75 ml/hr -F/U urine cultures. -Abdomen U/S shows gallstones with mild thickening of the gallbladder wall. Minimal pericholecystic fluid. HIDA scan tomorrow. -Rifaxamin 550 mg PO BID. -GI consulted, appreciate recs 2) Hx of Liver cirrhosis and cancer s/p lobectomy -Holding Lasix -Continue Protonix 40 mg PO Daily -Holding spironolactone 3)Seizure disorder -Continue Keppra 500 mg PO BID 4)HTN -Holding spironolactone 5)Thrombocytopenia -Likely due to liver cirrhosis 6)CKD Stage 3 -F/U urine creatinine and protein ratio -Nephrology consulted, appreciate recs 7) COPD -Continue Spiriva -Continue Symbicort F: No fluids E: Monitor K, Mag, Phos N: Sodium restricted diet DVT: SCD due to low platelet count Dispo:Admitted to medicine Visit type - Emergency Visit Emergency Visit: Yes ED Registration Date: 06/05/19 Care time: The patient presented to the Emergency Department on the above date and was hospitalized for further evaluation of their emergent condition. - New Patient This patient is new to me today: No - Critical Care Critical Care patient: No ATTENDING PHYSICIAN STATEMENT I saw and evaluated the patient. I reviewed the resident's note and discussed the case with the resident. I agree with the resident's findings and plan as documented. SUBJECTIVE: OBJECTIVE: ASSESSMENT AND PLAN:
--- NOTE | 2019-06-07 19:11 | PN ---
Teaching Attending Note Name of Resident: Trang Mcelroy ATTENDING PHYSICIAN STATEMENT I saw and evaluated the patient. I reviewed the resident's note and discussed the case with the resident. I agree with the resident's findings and plan as documented. SUBJECTIVE: No fever or chills. No GALE . no pain . he feels much better OBJECTIVE: NAD, awake, alert, knows location , age, and year/month . No facail droop Cv: RRR Lungs: CTAB Abd: soft, ND, No hepatomegaly, NL BS . TTP in all quadrants Ext: trace edema on LE ASSESSMENT AND PLAN: 64 y/o man with h/o Hep C , cirrhosis ,seizure DO, variceal bleed s/p banding , ETOH abuse , HCC s/p resection , GERD, gastritis, IVDU, and pancreatic insufficiency, who presented with increased lethargy. 1- Hepatic encephalopathy: improved - cont lactulose .make standing instead of PRN . No BM yesterday - US with gall stones and thickening in gall bladder wall . - get HIDA - cont rifaximin . was on it in past. - follow blood cx 2- SILVANA on CKD: prerenal component likely. - cont to hold diuretics 3- H/o Seizure disorder: cont keppra 4- H/o Cirrhosis . - hold diuretics - cont lactulose - f/u at [facility] for repeat MRI 5- h/o GI bleed with variceal banding - stable HB 6- Thrombocytopenai: likely due to liver dz. chronic 7- DVT PX : SCDs due to thrombocytopenia
[2019-06-07] MEDS: RIFAXIMIN 550 MG TABLET (UD) PO SCH (21:26)
[2019-06-08] MEDS: LACTULOSE 20 GM/30 ML UDC (FOR ORAL USE ONLY) PO SCH ×3 (06:19→22:05)
[2019-06-08 07:14] LABS: BASO % 0.3 % (0-2.0); EOS % 3.5 % (0-4.5); HEMATOCRIT 38.5 % (35.4-49); HEMOGLOBIN 12.7 GM/dL (11.7-16.9); MCH 29.2 pg (25.7-33.7); MEAN CELL VOLUME 88.7 fl (80-96); MEAN PLT VOLUME 9.7 fl (7.5-11.1); MONO % 15.1 % (3.8-10.2); NEUT % 67.1 % (42.8-82.8); PLATELET COUNT 72 K/MM3 (134-434); RBC 4.34 M/mm3 (4.00-5.60); RDW 18.2 % (11.9-15.9); WHITE BLOOD COUNT 6.8 K/mm3 (4.0-10.0)
[2019-06-08 07:38] LABS: ALBUMIN 2.9 g/dl (3.4-5.0); BILIRUBIN,TOTAL 1.1 mg/dL (0.2-1); BLOOD UREA NITROGEN 36.3 mg/dL (7-18); CALCIUM 9.4 mg/dL (8.5-10.1); CREATININE 2.5 mg/dL (0.55-1.3); POTASSIUM 4.4 mmol/L (3.5-5.1); TOT PROT 8.1 g/dl (6.4-8.2)
[2019-06-08] MEDS: LIPASE/PROTEASE/AMYLASE 36,000 UNIT CAPSULE PO SCH ×3 (08:13→17:00)
[2019-06-08] MEDS ORDERED: PT OWN MED DRAWER 7, Y5N ONE ×2 (09:59→10:44)
[2019-06-08] MEDS: PANTOPRAZOLE 20 MG TABLET (FP) PO SCH (10:45)
[2019-06-08] MEDS: levETIRAcetam 500 MG TABLET (FP) PO SCH ×2 (10:45→22:05)
[2019-06-08] MEDS: RIFAXIMIN 550 MG TABLET (UD) PO SCH ×2 (10:46→22:05)
[2019-06-08] MEDS: FOLIC ACID 1 MG TABLET (FP) PO SCH (10:46)
[2019-06-08] MEDS: BUDESONIDE/FORMETEROL FUMARATE 160/4.5 mcg INHALER IH SCH ×2 (11:14→22:14)
[2019-06-08] MEDS: TIOTROPIUM BROMIDE 2.5 MCG (SPIRIVA) RESPIMAT INHALER IH SCH (11:14)
--- NOTE | 2019-06-08 17:12 | PN ---
Progress Note, Physician History of Present Illness: Pt seen and examined at bedside. He is more awake than yesterday but not back to baseline. He has poor po intake. - Current Medication List Current Medications: Active Medications Budesonide/Formoterol Fumarate (Symbicort 160/4.5mcg -) 2 puff IH BID [facility] Last Admin: 06/08/19 11:14 Dose: 2 puff Folic Acid (Folic Acid -) 1 mg PO DAILY [facility] Last Admin: 06/08/19 10:46 Dose: 1 mg Lactulose (Cephulac (Oral Use)) 20 gm PO TID [facility] Last Admin: 06/08/19 14:06 Dose: 20 gm Levetiracetam (Keppra -) 500 mg PO BID [facility] Last Admin: 06/08/19 10:45 Dose: 500 mg Pancrelipase (Creon Dr 36,000 Units Capsule) 1 cap PO TIDCM [facility] Last Admin: 06/08/19 17:00 Dose: 1 cap Pantoprazole Sodium (Protonix -) 40 mg PO DAILY [facility] Last Admin: 06/08/19 10:45 Dose: 40 mg Rifaximin (Xifaxan -) 550 mg PO BID [facility] Last Admin: 06/08/19 10:46 Dose: 550 mg Tiotropium Check (Spiriva Respimat) 2 puff IH DAILY [facility] Last Admin: 06/08/19 11:14 Dose: 2 puff - Objective Vital Signs: Vital Signs Temperature 98.0 F 06/08/19 10:00 Pulse Rate 79 06/08/19 10:00 Respiratory Rate 20 06/08/19 10:00 Blood Pressure 98/68 06/08/19 10:00 O2 Sat by Pulse Oximetry (%) 98 06/07/19 09:00 Constitutional: Yes: Calm Eyes: Yes: Conjunctiva Clear HENT: Yes: Atraumatic Neck: Yes: Supple Cardiovascular: Yes: S1, S2 Respiratory: Yes: CTA Bilaterally Gastrointestinal: Yes: Soft Genitourinary: Yes: WNL Musculoskeletal: Yes: WNL Edema: No Integumentary: Yes: WNL Neurological: Yes: Confusion Labs: CBC, BMP 06/08/19 06:55 06/08/19 06:55 INR, PTT INR 1.08 (0.83-1.09) 06/05/19 14:15 Problem List - Problems (1) Hepatic encephalopathy Code(s): K72.90 - HEPATIC FAILURE, UNSPECIFIED WITHOUT COMA (2) ARF (acute renal failure) Code(s): N17.9 - ACUTE KIDNEY FAILURE, UNSPECIFIED Qualifiers: Acute renal failure type: unspecified Qualified Code(s): N17.9 - Acute kidney failure, unspecified Assessment/Plan Current Medications Generic Name Dose Route Start Last Admin Trade Name Freq PRN Reason Stop Dose Admin Budesonide/Formoterol Fumarate 2 puff 06/05/19 22:00 06/08/19 11:14 Symbicort 160/4.5mcg - IH 2 puff BID PIERO Administration Folic Acid 1 mg 06/06/19 10:00 06/08/19 10:46 Folic Acid - PO 1 mg DAILY [facility]ERO Administration Lactulose 20 gm 06/07/19 07:55 06/08/19 14:06 Cephulac (Oral Use) PO 20 gm TID [facility]ERO Administration Levetiracetam 500 mg 06/05/19 22:00 06/08/19 10:45 Keppra - PO 500 mg BID [facility]ERO Administration Pancrelipase 1 cap 06/06/19 08:00 06/08/19 17:[address] 36,000 Units Capsule PO 1 cap TIDCM PIERO Administration Pantoprazole Sodium 40 mg 06/06/19 10:00 06/08/19 10:45 Protonix - PO 40 mg DAILY PIERO Administration Rifaximin 550 mg 06/07/19 22:00 06/08/19 10:46 Xifaxan - PO 550 mg BID PIERO Administration Tiotropium Check 2 puff 06/06/19 10:00 06/08/19 11:14 Spiriva Respimat IH 2 puff DAILY PIERO Administration Impression 1. CKD 2. Hep C 3. liver cirrhosis 4. hx ascites 5. epilepsy 6. substance abuse 7. hx of lobectomy Plan - resume 1/2 ns - repeat labs in am - monitor renal function - diuretics on hold for now - cont lactulose - gi input appreciated, rifaximin added
[2019-06-08] MEDS ORDERED: SODIUM CHLORIDE 0.45% 1,000 ML IV SCH (17:15)
--- NOTE | 2019-06-08 17:28 | PN ---
Physical Exam: SUBJECTIVE: Patient seen and examined in the morning. No acute events overnight. No complaints of chest pain, shortness of breath, abdominal pain, nausea, vomiting, diarrhea. 1 episode of non-bloody formed stool in the morning. . OBJECTIVE: Vital Signs Period Temp Pulse Resp BP Sys/Eisenberg Pulse Ox Last 24 Hr 97.8 F-98.0 F 79-83 16-20 98-149/52-69 GENERAL: Awake, alert, and fully oriented, in no acute distress. Lethargic as compared to yesterday. HEAD: Normal with no signs of trauma. EYES: Pupils equal, round and reactive to light, extraocular movements intact, sclera anicteric, conjunctiva clear. NECK: Normal range of motion, supple without lymphadenopathy. LUNGS: Breath sounds equal, clear to auscultation bilaterally. No wheezes, and no crackles. No accessory muscle use. HEART: Regular rate and rhythm, normal S1 and S2, 2/6 systolic murmur. ABDOMEN: Soft, nontender, not distended, normoactive bowel sounds, no guarding, no rebound, no masses. No fluid wave. MUSCULOSKELETAL: Normal range of motion at all joints. No bony deformities or tenderness. No CVA tenderness. LOWER EXTREMITIES: 2+ pulses, warm, well-perfused. No calf tenderness. No peripheral edema. NEUROLOGICAL: Cranial nerves II-XII grossly intact.. SKIN: Warm, dry, normal turgor, no rashes or lesions noted, normal capillary refill. Laboratory Results - last 24 hr 06/08/19 06/08/19 06:55 06:55 WBC 6.8 RBC 4.34 Hgb 12.7 Hct 38.5 MCV 88.7 MCH 29.2 MCHC 33.0 RDW 18.2 H Plt Count 72 L MPV 9.7 Absolute Neuts (auto) 4.6 Neutrophils % 67.1 Lymphocytes % 14.0 Monocytes % 15.1 H Eosinophils % 3.5 Basophils % 0.3 Nucleated RBC % 0 Sodium 141 Potassium 4.4 Chloride 112 H Carbon Dioxide 23 Anion Gap 6 L BUN 36.3 H Creatinine 2.5 H Est GFR (CKD-EPI)AfAm 30.10 Est GFR (CKD-EPI)NonAf 25.97 Random Glucose 101 Calcium 9.4 Total Bilirubin 1.1 H AST 50 H ALT 37 Alkaline Phosphatase 185 H Total Protein 8.1 Albumin 2.9 L Active Medications Generic Name Dose Route Start Last Admin Trade Name Capo PRN Reason Stop Dose Admin Budesonide/Formoterol Fumarate 2 puff 06/05/19 22:00 06/08/19 11:14 Symbicort 160/4.5mcg - IH 2 puff BID PIERO Administration Folic Acid 1 mg 06/06/19 10:00 06/08/19 10:46 Folic Acid - PO 1 mg DAILY PIERO Administration Sodium Chloride 1,000 mls @ 50 mls/hr 06/08/19 17:15 1/2 Normal Saline IV 06/09/19 17:12 ASDIR PIERO Lactulose 20 gm 06/07/19 07:55 06/08/19 14:06 Cephulac (Oral Use) PO 20 gm TID PIERO Administration Levetiracetam 500 mg 06/05/19 22:00 06/08/19 10:45 Keppra - PO 500 mg BID [facility]ERO Administration Pancrelipase 1 cap 06/06/19 08:00 06/08/19 17:00 Kwame Curry 36,000 Units Capsule PO 1 cap TIDCM PIERO Administration Pantoprazole Sodium 40 mg 06/06/19 10:00 06/08/19 10:45 Protonix - PO 40 mg DAILY [facility]ERO Administration Rifaximin 550 mg 06/07/19 22:00 06/08/19 10:46 Xifaxan - PO 550 mg BID PIERO Administration Tiotropium [place] 2 puff 06/06/19 10:00 06/08/19 11:14 Spiriva Respimat IH 2 puff DAILY PIERO Administration ASSESSMENT/PLAN 64 M with PMH of HTN, Hep C with cirrhosis (ascites & esophageal banding), liver cancer s/p left liver lobectomy, pancreatic insufficiency, COPD, CKD stage 3, seizure disorder, who presents today with altered mental status and gait instability. 1) AMS -Patient continued to be lethargic. -Possibly due to hepatic encephalopathy. Patient is not taking medications as directed. Has history of liver co-morbidities -U/A negative -Lactic acid trended down. -Continue Lactulose 20 gram TID. Monitor bowel movements. Will go up to 30 gram TID if no movements. -Magnesium 1.9 -Phosphorous 4.0 -Head CT negative. -Holding home trazadone -Continue Keppra 500 mg PO BID -Continue Lipase, protease, amylase Creon tablet. -NS @75 ml/hr -F/U urine cultures. -Abdomen U/S shows gallstones with mild thickening of the gallbladder wall. Minimal pericholecystic fluid. -HIDA shows no obstruction. -Rifaxamin 550 mg PO BID. -GI consulted, appreciate recs 2) Hx of Liver cirrhosis and cancer s/p lobectomy -Holding Lasix -Continue Protonix 40 mg PO Daily -Holding spironolactone 3)Seizure disorder -Continue Keppra 500 mg PO BID 4)HTN -Holding spironolactone 5)Thrombocytopenia -Likely due to liver cirrhosis 6)CKD Stage 3 -F/U urine creatinine and protein ratio -Nephrology consulted, appreciate recs 7) COPD -Continue Spiriva -Continue Symbicort F: No fluids E: Monitor K, Mag, Phos N: Sodium restricted diet DVT: SCD due to low platelet count Dispo:Admitted to medicine Visit type - Emergency Visit Emergency Visit: Yes ED Registration Date: 06/05/19 Care time: The patient presented to the Emergency Department on the above date and was hospitalized for further evaluation of their emergent condition. - New Patient This patient is new to me today: No - Critical Care Critical Care patient: No ATTENDING PHYSICIAN STATEMENT I saw and evaluated the patient. I reviewed the resident's note and discussed the case with the resident. I agree with the resident's findings and plan as documented. SUBJECTIVE: OBJECTIVE: ASSESSMENT AND PLAN:
--- NOTE | 2019-06-08 18:44 | PN ---
Teaching Attending Note Name of Resident: Emily Sherman ATTENDING PHYSICIAN STATEMENT I saw and evaluated the patient. I reviewed the resident's note and discussed the case with the resident. I agree with the resident's findings and plan as documented. SUBJECTIVE: no fever or chills. No GALE . no fever or chills. no abd pain OBJECTIVE: NAD, awake, alert, knows location , age, and year/month . No facial droop Cv: RRR Lungs: CTAB Abd: soft, ND, No hepatomegaly,NT. NL BS Ext: trace edema on LE ASSESSMENT AND PLAN: 64 y/o man with h/o Hep C , cirrhosis ,seizure DO, variceal bleed s/p banding , ETOH abuse , HCC s/p resection , GERD, gastritis, IVDU, and pancreatic insufficiency, who presented with increased lethargy. 1- Hepatic encephalopathy: improved - cont lactulose . he reports big nonbloody BM today - HIDA with no obstruction - cont rifaximin . - Blood cx neg to date 2- SILVANA on CKD: - cont to hold diuretics - cont IVF 3- H/o Seizure disorder: cont keppra 4- H/o Cirrhosis . - hold diuretics - cont lactulose - f/u at [facility] for repeat MRI 5- h/o GI bleed with variceal banding - stable HB 6- Thrombocytopenai: likely due to liver dz. chronic 7- DVT PX: SCDs due to thrombocytopenia
[2019-06-09] MEDS: LACTULOSE 20 GM/30 ML UDC (FOR ORAL USE ONLY) PO SCH ×3 (06:43→21:44)
[2019-06-09] MEDS: LIPASE/PROTEASE/AMYLASE 36,000 UNIT CAPSULE PO SCH ×3 (08:05→16:57)
[2019-06-09 10:03] LABS: ALBUMIN 2.8 g/dl (3.4-5.0); BLOOD UREA NITROGEN 36.5 mg/dL (7-18); CALCIUM 9.2 mg/dL (8.5-10.1); CREATININE 2.2 mg/dL (0.55-1.3); POTASSIUM 4.7 mmol/L (3.5-5.1); TOT PROT 8.2 g/dl (6.4-8.2)
[2019-06-09] MEDS: TIOTROPIUM BROMIDE 2.5 MCG (SPIRIVA) RESPIMAT INHALER IH SCH (10:14)
[2019-06-09] MEDS: BUDESONIDE/FORMETEROL FUMARATE 160/4.5 mcg INHALER IH SCH ×2 (10:14→21:47)
[2019-06-09] MEDS: RIFAXIMIN 550 MG TABLET (UD) PO SCH ×2 (10:15→21:43)
[2019-06-09] MEDS: PANTOPRAZOLE 20 MG TABLET (FP) PO SCH (10:15)
[2019-06-09] MEDS: levETIRAcetam 500 MG TABLET (FP) PO SCH ×2 (10:15→21:44)
[2019-06-09] MEDS: FOLIC ACID 1 MG TABLET (FP) PO SCH (10:15)
--- NOTE | 2019-06-09 13:16 | PN ---
Teaching Attending Note Name of Resident: Emily Sherman ATTENDING PHYSICIAN STATEMENT I saw and evaluated the patient. I reviewed the resident's note and discussed the case with the resident. I agree with the resident's findings and plan as documented. SUBJECTIVE: No fever or chills. No GALE , no pain. No BM today. feels better . OBJECTIVE: NAD, awake, alert Cv: RRR Lungs: CTAB Abd: soft, ND, No hepatomegaly,NT. NL BS Ext: trace edema on LE. ASSESSMENT AND PLAN: 64 y/o man with h/o Hep C , cirrhosis ,seizure DO, variceal bleed s/p banding , ETOH abuse , HCC s/p resection , GERD, gastritis, IVDU, and pancreatic insufficiency, who presented with increased lethargy. 1- Hepatic encephalopathy: improved. - cont lactulose . - cont rifaximin . - Blood cx neg to date 48 hr 2- SILVANA on CKD: - cont to hold diuretics -on IVF for now. renal function is at base line - question to nephro, when to resume diuretics after dc 3- H/o Seizure disorder: cont keppra 4- H/o Cirrhosis. - hold diuretics - cont lactulose and rifaximin - f/u at [facility] for repeat MRI 5- h/o GI bleed with variceal banding - stable HB 6- Thrombocytopenia: likely due to liver dz. chronic 7- DVT PX: SCDs due to thrombocytopenia PT noted . will contact social work
--- NOTE | 2019-06-09 15:10 | PN ---
Physical Exam: SUBJECTIVE: Patient seen and examined in the morning. No acute events overnight. Patient is now passing more gas, and had bowel movement in the afternoon. No complaints of chest pain, shortness of breath, abdominal pain, nausea, vomiting, diarrhea. OBJECTIVE: Vital Signs Period Temp Pulse Resp BP Sys/Eisenberg Pulse Ox Last 24 Hr 98.1 F-98.4 F 54-82 20-20 123-137/65-75 96 GENERAL: Awake, alert, and fully oriented, in no acute distress. HEAD: Normal with no signs of trauma. EYES: Pupils equal, round and reactive to light, extraocular movements intact, sclera anicteric, conjunctiva clear. NECK: Normal range of motion, supple without lymphadenopathy. LUNGS: Breath sounds equal, clear to auscultation bilaterally. No wheezes, and no crackles. No accessory muscle use. HEART: Regular rate and rhythm, normal S1 and S2, 2/6 systolic murmur. ABDOMEN: Soft, nontender, not distended, normoactive bowel sounds, no guarding, no rebound, no masses. No fluid wave. MUSCULOSKELETAL: Normal range of motion at all joints. No bony deformities or tenderness. No CVA tenderness. LOWER EXTREMITIES: 2+ pulses, warm, well-perfused. No calf tenderness. No peripheral edema. NEUROLOGICAL: Cranial nerves II-XII grossly intact. SKIN: Warm, dry, normal turgor, no rashes or lesions noted, normal capillary refill. Laboratory Results - last 24 hr 06/09/19 06:00 Sodium 137 Potassium 4.7 Chloride 108 H Carbon Dioxide 23 Anion Gap 6 L BUN 36.5 H Creatinine 2.2 H Est GFR (CKD-EPI)AfAm 35.13 Est GFR (CKD-EPI)NonAf 30.31 Random Glucose 96 Calcium 9.2 Total Bilirubin 1.0 AST 60 H ALT 45 Alkaline Phosphatase 196 H Total Protein 8.2 Albumin 2.8 L Active Medications Generic Name Dose Route Start Last Admin Trade Name Freq PRN Reason Stop Dose Admin Budesonide/Formoterol Fumarate 2 puff 06/05/19 22:00 06/09/19 10:14 Symbicort 160/4.5mcg - IH 2 puff BID PIERO Administration Folic Acid 1 mg 06/06/19 10:00 06/09/19 10:15 Folic Acid - PO 1 mg DAILY PIERO Administration Sodium Chloride 1,000 mls @ 50 mls/hr 06/08/19 17:15 06/08/19 18:00 1/2 Normal Saline IV 06/09/19 17:12 50 mls/hr ASDIR PIERO Administration Lactulose 20 gm 06/07/19 07:55 06/09/19 13:06 Cephulac (Oral Use) PO 20 gm TID PIERO Administration Levetiracetam 500 mg 06/05/19 22:00 06/09/19 10:15 Keppra - PO 500 mg BID PIERO Administration Pancrelipase 1 cap 06/06/19 08:00 06/09/19 12:[address] 36,000 Units Capsule PO 1 cap TIDCM PIERO Administration Pantoprazole Sodium 40 mg 06/06/19 10:00 06/09/19 10:15 Protonix - PO 40 mg DAILY PIERO Administration Rifaximin 550 mg 06/07/19 22:00 06/09/19 10:15 Xifaxan - PO 550 mg BID PIERO Administration Tiotropium [place] 2 puff 06/06/19 10:00 06/09/19 10:14 Spiriva Respimat IH 2 puff DAILY PIERO Administration ASSESSMENT/PLAN: 64 M with PMH of HTN, Hep C with cirrhosis (ascites & esophageal banding), liver cancer s/p left liver lobectomy, pancreatic insufficiency, COPD, CKD stage 3, seizure disorder, who presents today with altered mental status and gait instability. 1) AMS -Patient returning to baseline mentation. -Possibly due to hepatic encephalopathy. Patient is not taking medications as directed. Has history of liver co-morbidities -U/A negative -Lactic acid trended down. -Continue Lactulose 20 gram TID. Patient beginning to pass more gas and have bowel movements. -Head CT negative. -Holding home trazadone. -Continue Keppra 500 mg PO BID -Continue Lipase, protease, amylase Creon tablet. -Urine culture negative -Abdomen U/S shows gallstones with mild thickening of the gallbladder wall. Minimal pericholecystic fluid. -HIDA shows no obstruction. -Rifaxamin 550 mg PO BID. -GI consulted, appreciate recs -Physical therapy- patient walked 25 feet with walker. Will plan for physical therapy or rehab as outpatient. 2) Hx of Liver cirrhosis and cancer s/p lobectomy -Holding Lasix -Continue Protonix 40 mg PO Daily -Holding spironolactone 3)Seizure disorder -Continue Keppra 500 mg PO BID 4)HTN -Holding spironolactone 5)Thrombocytopenia -Likely due to liver cirrhosis 6)CKD Stage 3 -F/U urine creatinine and protein ratio -Nephrology consulted, appreciate recs 7) COPD -Continue Spiriva -Continue Symbicort F: No fluids E: Monitor K, Mag, Phos N: Sodium restricted diet DVT: SCD due to low platelet count Dispo:Admitted to medicine Visit type - Emergency Visit Emergency Visit: Yes ED Registration Date: 06/05/19 Care time: The patient presented to the Emergency Department on the above date and was hospitalized for further evaluation of their emergent condition. - New Patient This patient is new to me today: No - Critical Care Critical Care patient: No ATTENDING PHYSICIAN STATEMENT I saw and evaluated the patient. I reviewed the resident's note and discussed the case with the resident. I agree with the resident's findings and plan as documented. SUBJECTIVE: OBJECTIVE: ASSESSMENT AND PLAN:
--- NOTE | 2019-06-09 17:51 | PN ---
Progress Note, Physician History of Present Illness: Pt seen and examined at bedside. He is awake and alert. He denies shortness of breath. - Current Medication List Current Medications: Active Medications Budesonide/Formoterol Fumarate (Symbicort 160/4.5mcg -) 2 puff IH BID [facility] Last Admin: 06/09/19 10:14 Dose: 2 puff Folic Acid (Folic Acid -) 1 mg PO DAILY [facility] Last Admin: 06/09/19 10:15 Dose: 1 mg Lactulose (Cephulac (Oral Use)) 20 gm PO TID [facility] Last Admin: 06/09/19 13:06 Dose: 20 gm Levetiracetam (Keppra -) 500 mg PO BID [facility] Last Admin: 06/09/19 10:15 Dose: 500 mg Pancrelipase (Creon Dr 36,000 Units Capsule) 1 cap PO TIDCM [facility] Last Admin: 06/09/19 16:57 Dose: 1 cap Pantoprazole Sodium (Protonix -) 40 mg PO DAILY [facility] Last Admin: 06/09/19 10:15 Dose: 40 mg Rifaximin (Xifaxan -) 550 mg PO BID [facility] Last Admin: 06/09/19 10:15 Dose: 550 mg Tiotropium [place] (Spiriva Respimat) 2 puff IH DAILY [facility] Last Admin: 06/09/19 10:14 Dose: 2 puff - Objective Vital Signs: Vital Signs Temperature 98.4 F 06/09/19 06:00 Pulse Rate 67 06/09/19 10:00 Respiratory Rate 20 06/09/19 10:00 Blood Pressure 130/65 06/09/19 10:00 O2 Sat by Pulse Oximetry (%) 96 06/08/19 21:00 Constitutional: Yes: Calm Eyes: Yes: Conjunctiva Clear HENT: Yes: Atraumatic Neck: Yes: Supple Cardiovascular: Yes: S1, S2 Respiratory: Yes: CTA Bilaterally Gastrointestinal: Yes: Soft Genitourinary: Yes: WNL Musculoskeletal: Yes: WNL Edema: No Neurological: Yes: Oriented Labs: CBC, BMP 06/08/19 06:55 06/09/19 06:00 INR, PTT INR 1.08 (0.83-1.09) 06/05/19 14:15 Problem List - Problems (1) Hepatic encephalopathy Code(s): K72.90 - HEPATIC FAILURE, UNSPECIFIED WITHOUT COMA (2) ARF (acute renal failure) Code(s): N17.9 - ACUTE KIDNEY FAILURE, UNSPECIFIED Qualifiers: Acute renal failure type: unspecified Qualified Code(s): N17.9 - Acute kidney failure, unspecified Assessment/Plan Current Medications Generic Name Dose Route Start Last Admin Trade Name Freq PRN Reason Stop Dose Admin Budesonide/Formoterol Fumarate 2 puff 06/05/19 22:00 06/09/19 10:14 Symbicort 160/4.5mcg - IH 2 puff BID PIERO Administration Folic Acid 1 mg 06/06/19 10:00 06/09/19 10:15 Folic Acid - PO 1 mg DAILY PIERO Administration Lactulose 20 gm 06/07/19 07:55 06/09/19 13:06 Cephulac (Oral Use) PO 20 gm TID PIERO Administration Levetiracetam 500 mg 06/05/19 22:00 06/09/19 10:15 Keppra - PO 500 mg BID PIERO Administration Pancrelipase 1 cap 06/06/19 08:00 06/09/19 16:[address] 36,000 Units Capsule PO 1 cap TIDCM PIERO Administration Pantoprazole Sodium 40 mg 06/06/19 10:00 06/09/19 10:15 Protonix - PO 40 mg DAILY PIERO Administration Rifaximin 550 mg 06/07/19 22:00 06/09/19 10:15 Xifaxan - PO 550 mg BID PIERO Administration Tiotropium [place] 2 puff 06/06/19 10:00 06/09/19 10:14 Spiriva Respimat IH 2 puff DAILY PIERO Administration Impression 1. CKD 2. Hep C 3. liver cirrhosis 4. hx ascites 5. epilepsy 6. substance abuse 7. hx of lobectomy Plan - fluids stopped - volume status is improved - can restart diuretics in am - discussed with medical team - cont lactulose and rifacimin
[2019-06-09] MEDS: MELATONIN 5 MG TABLETS PO SCH (21:46)
[2019-06-10] MEDS: LACTULOSE 20 GM/30 ML UDC (FOR ORAL USE ONLY) PO SCH ×3 (07:05→21:09)
[2019-06-10] MEDS: FOLIC ACID 1 MG TABLET (FP) PO SCH (09:10)
[2019-06-10] MEDS: SPIRONOLACTONE 25 MG TABLET (FP) PO SCH (09:10)
[2019-06-10] MEDS: levETIRAcetam 500 MG TABLET (FP) PO SCH ×2 (09:11→21:09)
[2019-06-10] MEDS: LIPASE/PROTEASE/AMYLASE 36,000 UNIT CAPSULE PO SCH ×3 (09:11→16:40)
[2019-06-10] MEDS: PANTOPRAZOLE 20 MG TABLET (FP) PO SCH (09:12)
[2019-06-10] MEDS: FUROSEMIDE 40 MG TABLET (FP) PO SCH (09:12)
[2019-06-10] MEDS: RIFAXIMIN 550 MG TABLET (UD) PO SCH ×2 (09:12→21:09)
[2019-06-10] MEDS: BUDESONIDE/FORMETEROL FUMARATE 160/4.5 mcg INHALER IH SCH ×2 (09:16→21:09)
[2019-06-10] MEDS: TIOTROPIUM BROMIDE 2.5 MCG (SPIRIVA) RESPIMAT INHALER IH SCH (09:17)
[2019-06-10] MEDS: MINERAL OIL/PETROLAT/WATER TOPICAL CREAM 113 GM JAR TP SCH ×2 (13:48→21:09)
--- NOTE | 2019-06-10 16:36 | PN ---
Progress Note (short form) - Note Progress Note: Subjective: he feels much better . No pain , no GALE . no ABd pain . had 3 BMs today Objective: Vital Signs: Last Vital Signs Temp Pulse Resp BP Pulse Ox 98.3 F 68 20 122/73 96 06/10/19 15:08 06/10/19 15:08 06/10/19 15:08 06/10/19 15:08 06/09/19 21:00 Physical Exam: NAD, awake, alert Cv: RRR Lungs: CTAB Abd: soft, ND, No hepatomegaly, NT. NL BS Ext: trace edema on LE. ASSESSMENT AND PLAN: 64 y/o man with h/o Hep C , cirrhosis ,seizure DO, variceal bleed s/p banding , ETOH abuse , HCC s/p resection , GERD, gastritis, IVDU, and pancreatic insufficiency, who presented with increased lethargy. 1- Hepatic encephalopathy: improved. - cont lactulose . - cont rifaximin . 2- SILVANA on CKD: - resume diuretics . start lasix and spironolactone 3- H/o Seizure disorder: cont keppra 4- H/o Cirrhosis. - resume diuretics - cont lactulose and rifaximin - f/u at [facility] for repeat MRI 5- h/o GI bleed with variceal banding - stable HB 6- Thrombocytopenia: likely due to liver dz. chronic 7- DVT PX: SCDs due to thrombocytopenia Will need SNF. SW aware adn working on Rehab placement Visit type - Emergency Visit Emergency Visit: Yes ED Registration Date: 06/05/19 Care time: The patient presented to the Emergency Department on the above date and was hospitalized for further evaluation of their emergent condition. - New Patient This patient is new to me today: No - Critical Care Critical Care patient: No
--- NOTE | 2019-06-10 18:22 | PN ---
Progress Note, Physician History of Present Illness: Pt seen and examined at bedside. He is awake and alert. He denies shortness of breath. - Current Medication List Current Medications: Active Medications Budesonide/Formoterol Fumarate (Symbicort 160/4.5mcg -) 2 puff IH BID [facility] Last Admin: 06/10/19 09:16 Dose: 2 puff Folic Acid (Folic Acid -) 1 mg PO DAILY [facility] Last Admin: 06/10/19 09:10 Dose: 1 mg Furosemide (Lasix -) 40 mg PO DAILY [facility] Last Admin: 06/10/19 09:12 Dose: 40 mg Lactulose (Cephulac (Oral Use)) 20 gm PO TID [facility] Last Admin: 06/10/19 13:48 Dose: 20 gm Levetiracetam (Keppra -) 500 mg PO BID [facility] Last Admin: 06/10/19 09:11 Dose: 500 mg Melatonin (Melatonin) 10 mg PO HS [facility] Last Admin: 06/09/19 21:46 Dose: 10 mg Multi-Ingredient Lotion (Eucerin (Small Jar) -) 1 applic TP BID [facility] Last Admin: 06/10/19 13:48 Dose: 1 applic Pancrelipase (Creon Dr 36,000 Units Capsule) 1 cap PO TIDCM [facility] Last Admin: 06/10/19 16:40 Dose: 1 cap Pantoprazole Sodium (Protonix -) 40 mg PO DAILY [facility] Last Admin: 06/10/19 09:12 Dose: 40 mg Rifaximin (Xifaxan -) 550 mg PO BID [facility] Last Admin: 06/10/19 09:12 Dose: 550 mg Spironolactone (Aldactone -) 50 mg PO DAILY [facility] Last Admin: 06/10/19 09:10 Dose: 50 mg Tiotropium [place] (Spiriva Respimat) 2 puff IH DAILY [facility] Last Admin: 06/10/19 09:17 Dose: 2 puff - Objective Vital Signs: Vital Signs Temperature 98.3 F 06/10/19 15:08 Pulse Rate 68 06/10/19 15:08 Respiratory Rate 20 06/10/19 15:08 Blood Pressure 122/73 06/10/19 15:08 O2 Sat by Pulse Oximetry (%) 96 06/09/19 21:00 Constitutional: Yes: Calm Eyes: Yes: Conjunctiva Clear HENT: Yes: Atraumatic Cardiovascular: Yes: S1, S2 Respiratory: Yes: CTA Bilaterally Genitourinary: Yes: WNL Musculoskeletal: Yes: WNL Edema: No Neurological: Yes: Oriented Psychiatric: Yes: Oriented Labs: CBC, BMP 06/08/19 06:55 06/09/19 06:00 INR, PTT INR 1.08 (0.83-1.09) 06/05/19 14:15 Problem List - Problems (1) Hepatic encephalopathy Code(s): K72.90 - HEPATIC FAILURE, UNSPECIFIED WITHOUT COMA (2) ARF (acute renal failure) Code(s): N17.9 - ACUTE KIDNEY FAILURE, UNSPECIFIED Qualifiers: Acute renal failure type: unspecified Qualified Code(s): N17.9 - Acute kidney failure, unspecified Assessment/Plan Current Medications Generic Name Dose Route Start Last Admin Trade Name Freq PRN Reason Stop Dose Admin Budesonide/Formoterol Fumarate 2 puff 06/05/19 22:00 06/10/19 09:16 Symbicort 160/4.5mcg - IH 2 puff BID PIERO Administration Folic Acid 1 mg 06/06/19 10:00 06/10/19 09:10 Folic Acid - PO 1 mg DAILY PIERO Administration Furosemide 40 mg 06/10/19 10:00 06/10/19 09:12 Lasix - PO 40 mg DAILY PIERO Administration Lactulose 20 gm 06/07/19 07:55 06/10/19 13:48 Cephulac (Oral Use) PO 20 gm TID PIERO Administration Levetiracetam 500 mg 06/05/19 22:00 06/10/19 09:11 Keppra - PO 500 mg BID PIERO Administration Melatonin 10 mg 06/09/19 22:00 06/09/19 21:46 Melatonin PO 10 mg HS PIERO Administration Multi-Ingredient Lotion 1 applic 06/10/19 10:00 06/10/19 13:48 Eucerin (Small Jar) - TP 1 applic BID PIERO Administration Pancrelipase 1 cap 06/06/19 08:00 06/10/19 16:40 Kwame Curry 36,000 Units Capsule PO 1 cap TIDCM PIERO Administration Pantoprazole Sodium 40 mg 06/06/19 10:00 06/10/19 09:12 Protonix - PO 40 mg DAILY PIERO Administration Rifaximin 550 mg 06/07/19 22:00 06/10/19 09:12 Xifaxan - PO 550 mg BID PIERO Administration Spironolactone 50 mg 06/10/19 10:00 06/10/19 09:10 Aldactone - PO 50 mg DAILY PIERO Administration Tiotropium [place] 2 puff 06/06/19 10:00 06/10/19 09:17 Spiriva Respimat IH 2 puff DAILY PIERO Administration Impression 1. CKD 2. Hep C 3. liver cirrhosis 4. hx ascites 5. epilepsy 6. substance abuse 7. hx of lobectomy Plan - encourage po intake - can resume diuretics - monitor volume status - mental status back to baseline
[2019-06-10] MEDS: MELATONIN 5 MG TABLETS PO SCH (21:09)
[2019-06-11] MEDS: LACTULOSE 20 GM/30 ML UDC (FOR ORAL USE ONLY) PO SCH ×3 (06:02→21:45)
[2019-06-11 08:45] LABS: ALBUMIN 2.7 g/dl (3.4-5.0); BILIRUBIN,TOTAL 1.2 mg/dL (0.2-1); BLOOD UREA NITROGEN 29.5 mg/dL (7-18); CALCIUM 9.4 mg/dL (8.5-10.1); CREATININE 2.2 mg/dL (0.55-1.3); POTASSIUM 4.3 mmol/L (3.5-5.1); TOT PROT 7.6 g/dl (6.4-8.2)
[2019-06-11] MEDS: LIPASE/PROTEASE/AMYLASE 36,000 UNIT CAPSULE PO SCH ×4 (08:54→17:10)
[2019-06-11] MEDS: PANTOPRAZOLE 20 MG TABLET (FP) PO SCH (09:25)
[2019-06-11] MEDS: FUROSEMIDE 40 MG TABLET (FP) PO SCH (09:25)
[2019-06-11] MEDS: levETIRAcetam 500 MG TABLET (FP) PO SCH ×2 (09:25→21:45)
[2019-06-11] MEDS: RIFAXIMIN 550 MG TABLET (UD) PO SCH ×2 (09:25→21:45)
[2019-06-11] MEDS: SPIRONOLACTONE 25 MG TABLET (FP) PO SCH (09:25)
[2019-06-11] MEDS: FOLIC ACID 1 MG TABLET (FP) PO SCH (09:25)
[2019-06-11] MEDS: BUDESONIDE/FORMETEROL FUMARATE 160/4.5 mcg INHALER IH SCH ×2 (09:26→21:45)
[2019-06-11] MEDS: TIOTROPIUM BROMIDE 2.5 MCG (SPIRIVA) RESPIMAT INHALER IH SCH (09:26)
[2019-06-11] MEDS: MINERAL OIL/PETROLAT/WATER TOPICAL CREAM 113 GM JAR TP SCH ×2 (09:27→21:46)
[2019-06-11] MEDS ORDERED: PT OWN MED DRAWER 7, Y5N ONE ×2 (12:02→17:01)
--- NOTE | 2019-06-11 15:01 | PN ---
Progress Note, Physician History of Present Illness: Pt seen and examined at bedside. He is awake and alert. Mental status is back to baseline. - Current Medication List Current Medications: Active Medications Budesonide/Formoterol Fumarate (Symbicort 160/4.5mcg -) 2 puff IH BID [facility] Last Admin: 06/11/19 09:26 Dose: 2 puff Folic Acid (Folic Acid -) 1 mg PO DAILY [facility] Last Admin: 06/11/19 09:25 Dose: 1 mg Furosemide (Lasix -) 40 mg PO DAILY [facility] Last Admin: 06/11/19 09:25 Dose: 40 mg Lactulose (Cephulac (Oral Use)) 20 gm PO TID [facility] Last Admin: 06/11/19 14:30 Dose: 20 gm Levetiracetam (Keppra -) 500 mg PO BID [facility] Last Admin: 06/11/19 09:25 Dose: 500 mg Melatonin (Melatonin) 10 mg PO HS [facility] Last Admin: 06/10/19 21:09 Dose: 10 mg Multi-Ingredient Lotion (Eucerin (Small Jar) -) 1 applic TP BID [facility] Last Admin: 06/11/19 09:27 Dose: 1 applic Pancrelipase (Creon Dr 36,000 Units Capsule) 1 cap PO TIDCM [facility] Last Admin: 06/11/19 12:03 Dose: 1 cap Pantoprazole Sodium (Protonix -) 40 mg PO DAILY [facility] Last Admin: 06/11/19 09:25 Dose: 40 mg Rifaximin (Xifaxan -) 550 mg PO BID [facility] Last Admin: 06/11/19 09:25 Dose: 550 mg Spironolactone (Aldactone -) 50 mg PO DAILY [facility] Last Admin: 06/11/19 09:25 Dose: 50 mg Tiotropium [place] (Spiriva Respimat) 2 puff IH DAILY [facility] Last Admin: 06/11/19 09:26 Dose: 2 puff - Objective Vital Signs: Vital Signs Temperature 97.9 F 06/11/19 14:13 Pulse Rate 76 06/11/19 14:13 Respiratory Rate 20 06/11/19 14:13 Blood Pressure 134/47 L 06/11/19 14:13 O2 Sat by Pulse Oximetry (%) 96 06/10/19 21:00 Constitutional: Yes: Calm Eyes: Yes: Conjunctiva Clear HENT: Yes: Atraumatic Neck: Yes: Supple Cardiovascular: Yes: S1, S2 Respiratory: Yes: CTA Bilaterally Gastrointestinal: Yes: Soft Genitourinary: Yes: WNL Musculoskeletal: Yes: WNL Edema: No Neurological: Yes: Oriented Psychiatric: Yes: Oriented Labs: CBC, BMP 06/08/19 06:55 06/11/19 07:25 INR, PTT INR 1.08 (0.83-1.09) 06/05/19 14:15 Problem List - Problems (1) Hepatic encephalopathy Code(s): K72.90 - HEPATIC FAILURE, UNSPECIFIED WITHOUT COMA (2) ARF (acute renal failure) Code(s): N17.9 - ACUTE KIDNEY FAILURE, UNSPECIFIED Qualifiers: Acute renal failure type: unspecified Qualified Code(s): N17.9 - Acute kidney failure, unspecified Assessment/Plan Current Medications Generic Name Dose Route Start Last Admin Trade Name Freq PRN Reason Stop Dose Admin Budesonide/Formoterol Fumarate 2 puff 06/05/19 22:00 06/11/19 09:26 Symbicort 160/4.5mcg - IH 2 puff BID PIERO Administration Folic Acid 1 mg 06/06/19 10:00 06/11/19 09:25 Folic Acid - PO 1 mg DAILY PIERO Administration Furosemide 40 mg 06/10/19 10:00 06/11/19 09:25 Lasix - PO 40 mg DAILY PIERO Administration Lactulose 20 gm 06/07/19 07:55 06/11/19 14:30 Cephulac (Oral Use) PO 20 gm TID PIERO Administration Levetiracetam 500 mg 06/05/19 22:00 06/11/19 09:25 Keppra - PO 500 mg BID PIERO Administration Melatonin 10 mg 06/09/19 22:00 06/10/19 21:09 Melatonin PO 10 mg HS PIERO Administration Multi-Ingredient Lotion 1 applic 06/10/19 10:00 06/11/19 09:27 Eucerin (Small Jar) - TP 1 applic BID PIERO Administration Pancrelipase 1 cap 06/06/19 08:00 06/11/19 12:03 Kwame Curry 36,000 Units Capsule PO 1 cap TIDCM PIERO Administration Pantoprazole Sodium 40 mg 06/06/19 10:00 06/11/19 09:25 Protonix - PO 40 mg DAILY PIERO Administration Rifaximin 550 mg 06/07/19 22:00 06/11/19 09:25 Xifaxan - PO 550 mg BID PIERO Administration Spironolactone 50 mg 06/10/19 10:00 06/11/19 09:25 Aldactone - PO 50 mg DAILY PIERO Administration Tiotropium [place] 2 puff 06/06/19 10:00 06/11/19 09:26 Spiriva Respimat IH 2 puff DAILY PIERO Administration Impression 1. CKD 2. Hep C 3. liver cirrhosis 4. hx ascites 5. epilepsy 6. substance abuse 7. hx of lobectomy Plan - renal function stable - cont lasix - cont aldactone - monitor volume status - discussed compliance - outpt follow up - mental status back to baseline
--- NOTE | 2019-06-11 15:28 | PN ---
Physical Exam: SUBJECTIVE: Patient seen and examined. He reports 3-4 loose bowel movements overnight, which is normal for him when he is taking his medications. He denies abdominal pain, nausea, or vomiting. He is tolerating diet well and is able to move easily from chair to bed. OBJECTIVE: Vital Signs Period Temp Pulse Resp BP Sys/Eisenberg Pulse Ox Last 24 Hr 97.9 F-98.2 F 55-76 18-20 108-149/47-77 96 GENERAL: The patient is awake, alert, and fully oriented, in no acute distress. HEAD: Normal with no signs of trauma. EYES: PERRL, extraocular movements intact, conjunctiva clear. ENT: Ears normal, nares patent, moist mucous membranes. NECK: Trachea midline, full range of motion, supple. LUNGS: Clear to auscultation bilaterally. HEART: Regular rate and rhythm, no murmur ABDOMEN: Soft, nontender, nondistended, normoactive bowel sounds EXTREMITIES: Warm, well-perfused, no edema. NEUROLOGICAL: Cranial nerves II through XII grossly intact. Normal speech, no tremors. PSYCH: Normal mood, normal affect. SKIN: Warm, dry, normal turgor Laboratory Results - last 24 hr 06/11/19 07:25 Sodium 138 Potassium 4.3 Chloride 109 H Carbon Dioxide 22 Anion Gap 7 L BUN 29.5 H Creatinine 2.2 H Est GFR (CKD-EPI)AfAm 35.13 Est GFR (CKD-EPI)NonAf 30.31 Random Glucose 96 Calcium 9.4 Total Bilirubin 1.2 H AST 60 H ALT 51 Alkaline Phosphatase 201 H Total Protein 7.6 Albumin 2.7 L Active Medications Generic Name Dose Route Start Last Admin Trade Name Capo PRN Reason Stop Dose Admin Budesonide/Formoterol Fumarate 2 puff 06/05/19 22:00 06/11/19 09:26 Symbicort 160/4.5mcg - IH 2 puff BID PIERO Administration Folic Acid 1 mg 06/06/19 10:00 06/11/19 09:25 Folic Acid - PO 1 mg DAILY PIERO Administration Furosemide 40 mg 06/10/19 10:00 06/11/19 09:25 Lasix - PO 40 mg DAILY PIERO Administration Lactulose 20 gm 06/07/19 07:55 06/11/19 14:30 Cephulac (Oral Use) PO 20 gm TID PIERO Administration Levetiracetam 500 mg 06/05/19 22:00 06/11/19 09:25 Keppra - PO 500 mg BID PIERO Administration Melatonin 10 mg 06/09/19 22:00 06/10/19 21:09 Melatonin PO 10 mg HS PIERO Administration Multi-Ingredient Lotion 1 applic 06/10/19 10:00 06/11/19 09:27 Eucerin (Small Jar) - TP 1 applic BID PIERO Administration Pancrelipase 1 cap 06/06/19 08:00 06/11/19 12:03 Creon 36,000 Units Capsule PO 1 cap TIDCM PIERO Administration Pantoprazole Sodium 40 mg 06/06/19 10:00 06/11/19 09:25 Protonix - PO 40 mg DAILY PIERO Administration Rifaximin 550 mg 06/07/19 22:00 06/11/19 09:25 Xifaxan - PO 550 mg BID PIERO Administration Spironolactone 50 mg 06/10/19 10:00 06/11/19 09:25 Aldactone - PO 50 mg DAILY PIERO Administration Tiotropium [place] 2 puff 06/06/19 10:00 06/11/19 09:26 Spiriva Respimat IH 2 puff DAILY PIERO Administration ASSESSMENT/PLAN: Mr. Lopez is a 64y/o male with HTN, hepatitis C, liver cirrhosis, liver cancer s/p left lobectomy, ETOH use disorder, GERD, pancreatic insufficiency, seizure disorder, CKD stage 3, and COPD who presents with increased lethargy and confusion. Pt is non-compliant with medications. #hepatic encephalopathy Hx of liver cirrhosis and cancer as well as alcohol use disorder. Pt is reporting 3-4 BMs daily on lactulose and rifaximin. He does not appear to be confused at this time. Chronic transaminitis and thrombocytopenia present. -lactulose 20g TID -rifaximin 550mg BID -d/c to SNF for PT #seizure disorder -Keppra 500mg BID #HTN #CKD Pt initially had SILVANA which appears resolved. Cr today 2.2. #COPD -Spiriva -Symbicort #GERD -Protonix #pancreatic insufficiency -Creon #h/o cirrhosis -Lasix -spironolactone -folic acid -out pt MRI at [facility] DVT Ppx SCDs FEN PO fluids monitor labs regular diet dispo waiting for SNF placement Visit type - Emergency Visit Emergency Visit: Yes ED Registration Date: 06/05/19 Care time: The patient presented to the Emergency Department on the above date and was hospitalized for further evaluation of their emergent condition. - New Patient This patient is new to me today: Yes Date on this admission: 06/11/19 - Critical Care Critical Care patient: No - Discharge Referral Referred to [facility] No ATTENDING PHYSICIAN STATEMENT I saw and evaluated the patient. I reviewed the resident's note and discussed the case with the resident. I agree with the resident's findings and plan as documented. SUBJECTIVE: OBJECTIVE: ASSESSMENT AND PLAN:
--- NOTE | 2019-06-11 19:00 | PN ---
Teaching Attending Note Name of Resident: Gloria Azevedo ATTENDING PHYSICIAN STATEMENT I saw and evaluated the patient. I reviewed the resident's note and discussed the case with the resident. I agree with the resident's findings and plan as documented. SUBJECTIVE: No fever or chills. No GALE. feels better OBJECTIVE: NAD, awake, alert Cv: RRR Lungs: CTAB Abd: soft, ND, No hepatomegaly, NT. NL BS Ext: trace edema on LE. ASSESSMENT AND PLAN: 64 y/o man with h/o Hep C , cirrhosis ,seizure DO, variceal bleed s/p banding , ETOH abuse , HCC s/p resection , GERD, gastritis, IVDU, and pancreatic insufficiency, who presented with increased lethargy. 1- Hepatic encephalopathy: improved. - cont lactulose . - cont rifaximin . 2- SILVANA on CKD: - Cont lasix and spironolactone 3- H/o Seizure disorder: cont keppra 4- H/o Cirrhosis. - cont diuretics - cont lactulose and rifaximin - f/u at [facility] for repeat MRI 5- h/o GI bleed with variceal banding - stable HB 6- Thrombocytopenia: likely due to liver dz. chronic 7- DVT PX: SCDs due to thrombocytopenia dispo : pending rehab placement
[2019-06-11] MEDS: MELATONIN 5 MG TABLETS PO SCH (21:45)
[2019-06-12] MEDS: LACTULOSE 20 GM/30 ML UDC (FOR ORAL USE ONLY) PO SCH ×2 (05:38→15:42)
[2019-06-12] MEDS: RIFAXIMIN 550 MG TABLET (UD) PO SCH (10:04)
[2019-06-12] MEDS: SPIRONOLACTONE 25 MG TABLET (FP) PO SCH (10:04)
[2019-06-12] MEDS: levETIRAcetam 500 MG TABLET (FP) PO SCH (10:04)
[2019-06-12] MEDS: MINERAL OIL/PETROLAT/WATER TOPICAL CREAM 113 GM JAR TP SCH (10:05)
[2019-06-12] MEDS: FUROSEMIDE 40 MG TABLET (FP) PO SCH (10:05)
[2019-06-12] MEDS: LIPASE/PROTEASE/AMYLASE 36,000 UNIT CAPSULE PO SCH ×2 (10:05→12:46)
[2019-06-12] MEDS: PANTOPRAZOLE 20 MG TABLET (FP) PO SCH (10:05)
[2019-06-12] MEDS: FOLIC ACID 1 MG TABLET (FP) PO SCH (10:05)
[2019-06-12] MEDS: TIOTROPIUM BROMIDE 2.5 MCG (SPIRIVA) RESPIMAT INHALER IH SCH (10:07)
[2019-06-12] MEDS: BUDESONIDE/FORMETEROL FUMARATE 160/4.5 mcg INHALER IH SCH (10:07)
[2019-06-12 14:13] VITALS: BP 123/74; PULSE 82; TEMP 97.9
--- NOTE | 2019-06-12 14:44 | PN ---
Teaching Attending Note Name of Resident: Gloria Azevedo ATTENDING PHYSICIAN STATEMENT I saw and evaluated the patient. I reviewed the resident's note and discussed the case with the resident. I agree with the resident's findings and plan as documented. SUBJECTIVE: No fever or chills. feels much better . no pain OBJECTIVE: NAD, awake, alert Cv: RRR Lungs: CTAB Abd: soft, ND, No hepatomegaly, NT. NL BS Ext: trace edema on LE. ASSESSMENT AND PLAN: 64 y/o man with h/o Hep C , cirrhosis ,seizure DO, variceal bleed s/p banding , ETOH abuse , HCC s/p resection , GERD, gastritis, IVDU, and pancreatic insufficiency, who presented with increased lethargy. 1- Hepatic encephalopathy: improved. - cont lactulose . - cont rifaximin . 2- SILVANA on CKD: - Cont lasix and spironolactone 3- H/o Seizure disorder: cont keppra 4- H/o Cirrhosis. - cont diuretics - cont lactulose and rifaximin - f/u at [facility] for repeat MRI 5- h/o GI bleed with variceal banding - stable HB 6- Thrombocytopenia: likely due to liver dz. chronic dc home with PT. plan was d/w him and his son .
--- NOTE | 2019-06-12 16:36 | PN ---
Progress Note, Physician History of Present Illness: Pt seen and examined at bedside. He is awake and alert. He is tolerating diet. - Current Medication List Current Medications: Active Medications Budesonide/Formoterol Fumarate (Symbicort 160/4.5mcg -) 2 puff IH BID [facility] Last Admin: 06/12/19 10:07 Dose: 2 puff Folic Acid (Folic Acid -) 1 mg PO DAILY [facility] Last Admin: 06/12/19 10:05 Dose: 1 mg Furosemide (Lasix -) 40 mg PO DAILY [facility] Last Admin: 06/12/19 10:05 Dose: 40 mg Lactulose (Cephulac (Oral Use)) 20 gm PO TID [facility] Last Admin: 06/12/19 15:42 Dose: 20 gm Levetiracetam (Keppra -) 500 mg PO BID [facility] Last Admin: 06/12/19 10:04 Dose: 500 mg Melatonin (Melatonin) 10 mg PO HS [facility] Last Admin: 06/11/19 21:45 Dose: 10 mg Multi-Ingredient Lotion (Eucerin (Small Jar) -) 1 applic TP BID [facility] Last Admin: 06/12/19 10:05 Dose: 1 applic Pancrelipase (Creon Dr 36,000 Units Capsule) 1 cap PO TIDCM [facility] Last Admin: 06/12/19 12:46 Dose: 1 cap Pantoprazole Sodium (Protonix -) 40 mg PO DAILY [facility] Last Admin: 06/12/19 10:05 Dose: 40 mg Rifaximin (Xifaxan -) 550 mg PO BID [facility] Last Admin: 06/12/19 10:04 Dose: 550 mg Spironolactone (Aldactone -) 50 mg PO DAILY [facility] Last Admin: 06/12/19 10:04 Dose: 50 mg Tiotropium [place] (Spiriva Respimat) 2 puff IH DAILY [facility] Last Admin: 06/12/19 10:07 Dose: 2 puff - Objective Vital Signs: Vital Signs Temperature 97.9 F 06/12/19 14:09 Pulse Rate 82 06/12/19 14:09 Respiratory Rate 20 06/12/19 14:09 Blood Pressure 123/74 06/12/19 14:09 O2 Sat by Pulse Oximetry (%) 97 06/11/19 21:00 Constitutional: Yes: Calm Eyes: Yes: Conjunctiva Clear HENT: Yes: Atraumatic Neck: Yes: Supple Cardiovascular: Yes: S1, S2 Respiratory: Yes: CTA Bilaterally Gastrointestinal: Yes: Soft Genitourinary: Yes: WNL Musculoskeletal: Yes: WNL Edema: No Neurological: Yes: Oriented Psychiatric: Yes: Oriented Labs: CBC, BMP 06/08/19 06:55 06/11/19 07:25 INR, PTT INR 1.08 (0.83-1.09) 06/05/19 14:15 Problem List - Problems (1) Hepatic encephalopathy Code(s): K72.90 - HEPATIC FAILURE, UNSPECIFIED WITHOUT COMA (2) ARF (acute renal failure) Code(s): N17.9 - ACUTE KIDNEY FAILURE, UNSPECIFIED Qualifiers: Acute renal failure type: unspecified Qualified Code(s): N17.9 - Acute kidney failure, unspecified Assessment/Plan Current Medications Generic Name Dose Route Start Last Admin Trade Name Freq PRN Reason Stop Dose Admin Budesonide/Formoterol Fumarate 2 puff 06/05/19 22:00 06/12/19 10:07 Symbicort 160/4.5mcg - IH 2 puff BID [facility] Administration Folic Acid 1 mg 06/06/19 10:00 06/12/19 10:05 Folic Acid - PO 1 mg DAILY [facility] Administration Furosemide 40 mg 06/10/19 10:00 06/12/19 10:05 Lasix - PO 40 mg DAILY [facility] Administration Lactulose 20 gm 06/07/19 07:55 06/12/19 15:42 Cephulac (Oral Use) PO 20 gm TID [facility] Administration Levetiracetam 500 mg 06/05/19 22:00 06/12/19 10:04 Keppra - PO 500 mg BID [facility] Administration Melatonin 10 mg 06/09/19 22:00 06/11/19 21:45 Melatonin PO 10 mg HS [facility] Administration Multi-Ingredient Lotion 1 applic 06/10/19 10:00 06/12/19 10:05 Eucerin (Small Jar) - TP 1 applic BID [facility] Administration Pancrelipase 1 cap 06/06/19 08:00 06/12/19 12:46 Kwame Curry 36,000 Units Capsule PO 1 cap TIDCM [facility] Administration Pantoprazole Sodium 40 mg 06/06/19 10:00 06/12/19 10:05 Protonix - PO 40 mg DAILY [facility] Administration Rifaximin 550 mg 06/07/19 22:00 06/12/19 10:04 Xifaxan - PO 550 mg BID [facility] Administration Spironolactone 50 mg 06/10/19 10:00 06/12/19 10:04 Aldactone - PO 50 mg DAILY [facility] Administration Tiotropium [place] 2 puff 06/06/19 10:00 06/12/19 10:07 Spiriva Respimat IH 2 puff DAILY [facility] Administration Impression 1. CKD 2. Hep C 3. liver cirrhosis 4. hx ascites 5. epilepsy 6. substance abuse 7. hx of lobectomy Plan - cont with diuretics - cont lactulose and rifiximin - mental status is back to baseline - discussed compliance - outpt follow up - discussed with medical team
--- NOTE | 2019-06-12 17:33 | PN.GI ---
GI Progress Note Subjective: coverage for Dr Parham patient has no new complaints AAOx 3, no melena,no rectal bleeding - Objective Vital Signs: Vital Signs Temperature 97.9 F 06/12/19 14:09 Pulse Rate 82 06/12/19 14:09 Respiratory Rate 20 06/12/19 14:09 Blood Pressure 123/74 06/12/19 14:09 O2 Sat by Pulse Oximetry (%) 97 06/11/19 21:00 Constitutional: Well Nourished Eyes: Yes: Conjunctiva Clear HENT: Yes: Atraumatic Neck: Yes: Trachea Midline Cardiovascular: Yes: Regular Rate and Rhythm Respiratory: Yes: CTA Bilaterally ...Palpate: Yes: Soft. 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
--- NOTE | 2019-06-12 18:07 | DS ---
Physical Exam: SUBJECTIVE: Patient seen and examined. He reports 4 BM overnight. He denies abdominal pain, n/v/d, and tremors. OBJECTIVE: Vital Signs Period Temp Pulse Resp BP Sys/Eisenberg Pulse Ox Last 24 Hr 97.6 F-98.4 F 61-82 18-20 102-123/59-74 97 PHYSICAL EXAM GENERAL: The patient is awake, alert, and fully oriented, in no acute distress. HEAD: Normal with no signs of trauma. EYES: PERRL, extraocular movements intact, conjunctiva clear. ENT: Ears normal, nares patent, moist mucous membranes. NECK: Trachea midline, full range of motion, supple. LUNGS: Clear to auscultation bilaterally. HEART: Regular rate and rhythm, no murmur ABDOMEN: Soft, nontender, nondistended, normoactive bowel sounds EXTREMITIES: Warm, well-perfused, no edema. NEUROLOGICAL: Cranial nerves II through XII grossly intact. Normal speech, no tremors. PSYCH: Normal mood, normal affect. SKIN: Warm, dry, normal turgor LABS CBC, BMP 06/08/19 06:55 06/11/19 07:25 HOSPITAL COURSE: Mr. Lopez is a 64y/o male with HTN, hepatitis C, liver cirrhosis, liver cancer s/p left lobectomy, ETOH use disorder, GERD, pancreatic insufficiency, seizure disorder, CKD stage 3, and COPD who presents with increased lethargy and confusion. Pt is non-compliant with medications. He was treated for hepatic encephalopathy with lactulose and rifaximin which improved mentation. Chronic transaminitis and thrombocytopenia present. Pt also had SILVANA at admission which resolved with hydration. He was discharged to SNF for rehab. Date of Admission:06/05/19 Date of Discharge: 06/12/19 Minutes to complete discharge: 35 Discharge Summary Problems reviewed: Yes Reason For Visit: HEPATIC ENCEPHALOPATHY Condition: Improved - Instructions Diet, Activity, Other Instructions: Hospital Visit: You were admitted to the hospital due to weakness and altered mental status. You were found to have high levels of ammonia.We restarted you on your regular home medications and your mental status improved. You will be discharged to a short term rehab facility. Medications: Please resume all of your home medications in addition: Please take the medication Rifaximin 550mg twice a day Please take Lasix once daily instead of twice a day Please follow up with Dr. Williamson please follow up with Dr. Bernard *if you begin to experience changes in mental status, chest pains,shortness of breath, nausea/vomiting please return to the emergency room immediately please follow up with your liver doctors in [place] . it is important take lactulose 3-4 time ad ay . your goal is 3-4 BMs a day. you can hold it if more than 3 -4 BMs Referrals: Rangel Bernard MD [Staff Physician] - Bismark Williamson MD [Staff Physician] - Disposition: VNS/HOME HEALTH CARE - Home Medications Comprehensive Discharge Medication List: Ambulatory Orders levETIRAcetam [Keppra -] 500 mg PO BID tablet 12/06/16 Multivitamin with Iron [Multivitamins with Iron] 1 each PO DAILY 04/27/18 Pantoprazole Sodium [Protonix -] 20 mg PO DAILY 04/27/18 Budesonide/Formeterol Fumarate [SYMBICORT 160/4.5mcg -] 1 inh PO BID 06/20/18 Folic Acid - 1 mg PO DAILY tablet 03/11/19 Lactulose (Oral Use) [Cephulac -] 20 gm PO TID PRN #1 ea 03/23/19 Lipase/Protease/Amylase [Kwame Dr 36,000 Units Capsule] 1 cap PO TID 06/05/19 Tiotropium [place] [Spiriva] 1 inh IH DAILY 06/05/19 Ropinirole HCl 0.25 mg PO DAILY 06/06/19 Furosemide [Lasix -] 40 mg PO DAILY #30 tablet 06/12/19 Rifaximin [Xifaxan -] 550 mg PO BID #60 tablet 06/12/19 Spironolactone [Aldactone -] 50 mg PO DAILY #30 tablet 06/12/19 This patient is new to me today: No Emergency Visit: Yes ED Registration Date: 06/05/19 Care time: The patient presented to the Emergency Department on the above date and was hospitalized for further evaluation of their emergent condition. Critical Care patient: No - Discharge Referral Referred to [facility] No ATTENDING PHYSICIAN STATEMENT I saw and evaluated the patient. I reviewed the resident's note and discussed the case with the resident. I agree with the resident's findings and plan as documented. SUBJECTIVE: OBJECTIVE: ASSESSMENT AND PLAN:
== END 2019-06-12 17:52 | disposition home health service (06) | DRG 442 ==
LOC: JER 12:54 → JERBED 16:32 → J6S 18:10
PROVIDERS: ADMIT Internal Medicine; ATTEND Internal Medicine
DX: K72.90 Hepatic failure, unspecified without coma (principal); N17.9 Acute kidney failure, unspecified; R18.8 Other ascites; Z85.05 Personal history of malignant neoplasm of liver; N18.3 Chronic kidney disease, stage 3 (moderate); J44.9 Chronic obstructive pulmonary disease, unspecified; R56.9 Unspecified convulsions; K74.60 Unspecified cirrhosis of liver; D69.6 Thrombocytopenia, unspecified; I12.9 Hypertensive chronic kidney disease with stage 1 through stage 4 chronic kidney disease, or unspecified chronic kidney disease; R41.82 Altered mental status, unspecified; K21.9 Gastro-esophageal reflux disease without esophagitis
CPT/HCPCS: 36415; 70450-TC; 71045-TC-FY; 76700-TC; 78226-TC; 80048; 80053; 81003; 82140; 82150; 82550; 82565; 82570; 83605; 83690; 83735; 84100; 84156; 84300; 84484; 84540; 85025; 85610; 87040; 87086; 93005; 93010; 97116-GP; 97162-GP; 99285-25; A9537; J7030

== ENCOUNTER 2019-08-21 12:09 | Inpatient (IN) | payer OTHER ==
--- NOTE | 2019-08-21 12:50 | PDOC ---
History of Present Illness - General Chief Complaint: Pain Stated Complaint: ABD PAIN Time Seen by Provider: 08/21/19 12:48 History Source: Patient Exam Limitations: No Limitations - History of Present Illness Initial Comments: 08/21/19 12:48 Andrey Lopez is a 64M with PMH cirrhosis 2/2 Hep C and alcohol c/b ascites and esophageal banding, liver mass s/p left liver lobectomy, pancreatic insufficiency, COPD on home inhalers, presenting with abdominal swelling and pain. Patient gets pericentesis roughly every 2 months, last in May 2019, previously 3x in February 2019. Presents today complaining of lower abdominal pain and says that he feels like there is 3 liters of fluid in his abdomen. Had appt with his GI at [facility] Dr. Ly who is on maternity leave. Eating/ drinking well, no diarrhea or nausea/vomiting, no chest pain, no SOB, denies fever/chills. Mild swelling in his legs, able to walk with walker. Past History - Past Medical History Allergies/Adverse Reactions: Allergies Allergy/AdvReac Type Severity Reaction Status Date / Time Penicillins Allergy Unknown Verified 04/10/19 12:21 aspirin AdvReac Intermediate Verified 04/10/19 12:21 Home Medications: Ambulatory Orders levETIRAcetam [Keppra -] 500 mg PO BID tablet 12/06/16 Multivitamin with Iron [Multivitamins with Iron] 1 each PO DAILY 04/27/18 Pantoprazole Sodium [Protonix -] 20 mg PO DAILY 04/27/18 Budesonide/Formeterol Fumarate [SYMBICORT 160/4.5mcg -] 1 inh PO BID 06/20/18 Folic Acid - 1 mg PO DAILY tablet 03/11/19 Tiotropium [place] [Spiriva] 1 inh IH DAILY 06/05/19 Ropinirole HCl 0.25 mg PO HS 06/06/19 Rifaximin [Xifaxan -] 550 mg PO BID #60 tablet 06/12/19 Spironolactone [Aldactone -] 50 mg PO DAILY #30 tablet 06/12/19 Allopurinol [Zyloprim -] 100 mg PO DAILY 08/21/19 Furosemide [Lasix -] 40 mg PO TID 08/21/19 Lactulose (Oral Use) [Cephulac -] 20 gm PO BID 08/21/19 Lipase/Protease/Amylase [Zenpep Dr 25,000 Unit Capsule] 1 tab PO TID 08/21/19 Simethicone 125 mg PO QID 08/21/19 Cancer: Yes (hepatocellular carcinoma) Cardiac Disorders: (CKD) CVA: (hepatic encephalopathy) COPD: No CHF: No Diabetes: No GI Disorders: Yes (GI bleed;GERD;ESOPHAGEAL VARICES) Disorders: Yes (CKD,STONES,BPH, hepatitis B and C) HTN: Yes Hypercholesterolemia: Yes Liver Disease: Yes (CIRRHOSIS,HEP C) Seizures: Yes Thyroid Disease: No - Surgical History Abdominal Surgery: Yes (EGD,COLONOSCOPY) - Immunization History Immunization Up to Date: Yes - Psycho Social/Smoking Cessation Hx Smoking History: Never smoked Have you smoked in the past 12 months: No Number of Cigarettes Smoked Daily: 1 If you are a former smoker, when did you quit?: 2016 'Breaking Loose' booklet given: 09/10/13 Hx Alcohol Use: No Drug/Substance Use Hx: No Substance Use Type: None Hx Substance Use Treatment: No Review of Systems - Review of Systems Able to Perform ROS?: Yes Constitutional: No: Chills, Fever HEENTM: No: Symptoms Reported Respiratory: Yes: Cough (chronic) Cardiac (ROS): No: Chest Pain, Irregular Heart Rate, Lightheadedness, Palpitations, Syncope, Chest Tightness ABD/GI: Yes: Abdominal Distended. No: Constipated, Diarrhea, Nausea, Poor Appetite, Poor Fluid Intake, Vomiting : No: Symptoms Reported Musculoskeletal: No: Symptoms Reported Integumentary: No: Symptoms Reported Neurological: No: Symptoms reported Endocrine: No: Symptoms Reported Hematologic/Lymphatic: No: Symptoms Reported All Other Systems: Reviewed and Negative *Physical Exam - Vital Signs Last Vital Signs Temp Pulse Resp BP Pulse Ox 98 F 70 20 134/73 96 08/21/19 12:15 08/21/19 12:15 08/21/19 12:15 08/21/19 12:15 08/21/19 12:15 - Physical Exam General Appearance: Yes: Nourished, Appropriately Dressed. No: Apparent Distress HEENT: positive: CORAL, Normal Voice, Symmetrical, Pharynx Normal (dry mucosa), Hearing Grossly Normal. negative: Scleral Icterus (R), Scleral Icterus (L) Neck: positive: Trachea midline, Supple. negative: Tender, Lymphadenopathy (R) , Lymphadenopathy (L) Respiratory/Chest: positive: Lungs Clear, Normal Breath Sounds. negative: Chest Tender, Respiratory Distress, Accessory Muscle Use, Crackles, Rales, Rhonchi, Stridor, Wheezing Cardiovascular: positive: Regular Rhythm, Regular Rate. negative: Murmur Gastrointestinal/Abdominal: positive: Normal Bowel Sounds, Tender (lower bilateral), Soft, Protuberent, Distended, Hernia, Hepatomegaly, Spleenomegaly, Other (liver margins large to percussion). negative: Rebound, Tenderness Musculoskeletal: positive: Normal Inspection. negative: Decreased Range of Motion Extremity: positive: Normal Capillary Refill, Normal Inspection, Normal Range of Motion, Tender, Pelvis Stable, Pedal Edema (left), Swelling (left) Integumentary: positive: Normal Color, Dry, Warm. negative: Cyanotic, Erythema , Jaundice Neurologic: positive: Fully Oriented, Alert, Normal Mood/Affect, Normal Response , Motor Strength /5 ED Treatment Course - LABORATORY CBC & Chemistry Diagram: 08/21/19 14:00 08/21/19 14:00 Medical Decision Making - Medical Decision Making 08/21/19 14:38 Patient presents with distended abdomen with tenderness to palpation in the setting of cirrhosis and lobectomy for liver mass. Immediate concern for SBP, requires tap and fluid evaluation with admission. VS - CMP/CBC - CP - Lipase - ammonia - BNP - Mag/Phos - Coags Patient of Dr. Williamson who evaluated at bedside, recommends admission, SBP Abx with tap and culture, 25mg IV albumin if hypotensive. Hold diuretics to prevent bottoming of BP after tap. Knows patient well, has poor outpatient follow-up because [facility] does not send him to appointments. 08/21/19 14:59 Labs notable for: - K 3.2 will replete - Cr 1.6, range from 1.5-3.0 normally - trop negative - Alb 2.5 - WBC 6.1, no infection 08/21/19 17:46 Paracentesis performed with US guidance, removed 100cc clear straw-colored fluid. Ordered cell count, culture, amylase, glucose, LDH, protein, gram stain. 08/21/19 19:[address] Verdugo with admitting team, good for admit to Med -Surg under Dr. Nshiewat. Discharge - Discharge Information Problems reviewed: Yes Clinical Impression/Diagnosis: Ascites Qualifiers: Ascites type: other type Qualified Code(s): R18.8 - Other ascites Abdominal pain Qualifiers: Abdominal location: lower abdomen, unspecified Qualified Code(s): R10.30 - Lower abdominal pain, unspecified Condition: Stable - Admission Yes - Follow up/Referral - Patient Discharge Instructions - Post Discharge Activity
[2019-08-21 14:08] LABS: HEMATOCRIT 32.6 % (35.4-49); HEMOGLOBIN 10.7 GM/dL (11.7-16.9); MCH 30.2 pg (25.7-33.7); MCHC 32.9 g/dl (32.0-35.9); MEAN CELL VOLUME 91.7 fl (80-96); MONO % 14.5 % (3.8-10.2); NEUT % 71.5 % (42.8-82.8); PLATELET COUNT 95 K/MM3 (134-434); RBC 3.56 M/mm3 (4.00-5.60); WHITE BLOOD COUNT 6.1 K/mm3 (4.0-10.0)
[2019-08-21 14:33] LABS: INR 1.2 (0.83-1.09); PROTHROMBIN TIME (PATIENT) 14.2 SEC (9.7-13.0)
[2019-08-21 14:35] LABS: ACTIVATED PTT 29.7 SECONDS (25.2-36.5)
[2019-08-21 14:38] LABS: MAGNESIUM 1.8 mg/dL (1.8-2.4); PHOSPHOROUS 2.7 mg/dL (2.5-4.9)
[2019-08-21 14:52] LABS: ALBUMIN 2.5 g/dl (3.4-5.0); ALK PHOS 181 U/L (45-117); ANION GAP 7 MMOL/L (8-16); BILIRUBIN,TOTAL 0.9 mg/dL (0.2-1); BLOOD UREA NITROGEN 18.6 mg/dL (7-18); CALCIUM 8.4 mg/dL (8.5-10.1); CHLORIDE 110 mmol/L (98-107); CO2 25 mmol/L (21-32); CREATININE 1.6 mg/dL (0.55-1.3); GLUCOSE,RANDOM 82 mg/dL (74-106); LIPASE 214 U/L (73-393); POTASSIUM 3.2 mmol/L (3.5-5.1); SGOT/AST 56 U/L (15-37); SGPT/ALT 39 U/L (13-61); SODIUM 142 mmol/L (136-145); TOT PROT 7.3 g/dl (6.4-8.2)
--- NOTE | 2019-08-21 15:28 | PDOC ---
Attending Attestation - Resident Resident Name: Larry Watson - ED Attending Attestation I have performed the following: I have examined & evaluated the patient, The case was reviewed & discussed with the resident, I agree w/resident's findings & plan - HPI HPI: 08/21/19 15:26 64-year-old male with history of hepatitis C, recurring ascites, chronic kidney disease presents from rehab facility for 1 month of progressive abdominal distention typical of past ascites requiring paracentesis. Denies any shortness of breath, denies any fevers or chills, denies any abdominal pain. - Physicial Exam PE: 08/21/19 15:26 Heart is regular, lungs are clear Abdomen is distended but soft, nontender. Positive fluid wave, positive ascites 1+ pitting edema bilaterally to knees - Medical Decision Making 08/21/19 15:27 64-year-old male with history of cirrhosis and ascites and chronic kidney disease presents with 1 month of progressive ascites, now with increased pressure. Low suspicion for SBP given exam, will need therapeutic paracentesis. Check labs, rule out SILVANA Seen by nephrology, recommend diagnostic paracentesis to rule out SBP. Will empirically start antibiotics. Admission Heart Score/ECG Review #1 ECG reviewed & interpreted by me at: 16:31 General ECG Interpretation: Sinus Rhythm, Normal Rate (74), Normal Intervals ( qtc 439), No acute ischemic changes
[2019-08-21] MEDS ORDERED: POTASSIUM CHLORIDE TABS 20 MEQ TABLET.ER (FP) PO ONE ×2 (16:44→16:51)
[2019-08-21] MEDS ORDERED: LIDOCAINE 1%/EPI 1:100000 (20 ML MULTI DOSE VIAL) ONE (17:05)
[2019-08-21] MEDS ORDERED: CIPROFLOXACIN 400 MG/D5W 400 MG/200 ML IVPB IVPB ONE (17:54)
[2019-08-21] MEDS ORDERED: CEFTRIAXONE 500 MG in DEXTROSE 5%-WATER - 50 ML IVPB ONE (17:55)
[2019-08-21] MEDS ORDERED: cefTRIAXone SODIUM 1 GM VIAL ONE (18:00)
[2019-08-21] MEDS ORDERED: CEFTRIAXONE 1 GM in DEXTROSE 5%-WATER - 100 ML IVPB ONE (18:02)
--- NOTE | 2019-08-21 19:45 | HP ---
CHIEF COMPLAINT: abdominal pain , ascites PCP: Dr. Jama HISTORY OF PRESENT ILLNESS: Andrey Lopez is a 64 year old male with a past medical history of HTN, Hep C with cirrhosis (ascites & esophageal banding), liver cancer s/p left liver lobectomy, pancreatic insufficiency, COPD, CKD stage 3, seizure disorder who presents with increased abdominal swelling and abdominal pain. He states that over the last 2 months he has had increased in his abdominal swelling with ascities and has been complaining of pain along with the swelling. He states that he has not had a paracentesis in a "while" and has not been able to follow up with his liver specialist at [facility] because they are on maternity leave and he has not been able to follow up with his other specialists because of issues with the jail that [facility]. He denies any other symptoms of cp, sob, n/v/c/d, hematamesis, hematochezia, melena, fever, chills, dysuria, hematuria, frequency, hesitancy, headaches, dizziness, lightheadedness, seizures , altered mental status. Denies sick contacts or recent travel. ER course was notable for: (1) K 3.2, CRe 1.6 (baseline 1.5-3.0), ammonia 35 (2) CXR with minimal pleural effusions or atelectasis at R bases, no infiltrates or heart failure (3) Received ceftriaxone and Kdur (4) Removed 100cc of fluid from the abdomen and sent for studies Recent Travel: denies PAST MEDICAL HISTORY: as above PAST SURGICAL HISTORY: L liver lobectomy Social History: Smoking: former smoker, 25 pack year history, quit 5-6 years ago Alcohol: former alcohol user of 45 years Drugs: former cocaine user. Lives in [place]. Allergies Penicillins Allergy (Unknown, Verified 04/10/19 12:21) aspirin Adverse Reaction (Intermediate, Verified 04/10/19 12:21) HOME MEDICATIONS: Home Medications Medication Instructions Recorded levETIRAcetam [Keppra -] 500 mg PO BID tablet 12/06/16 Multivitamin with Iron 1 each PO DAILY 04/27/18 [Multivitamins with Iron] Pantoprazole Sodium [Protonix -] 20 mg PO DAILY 04/27/18 Budesonide/Formeterol Fumarate 1 inh PO BID 06/20/18 [SYMBICORT 160/4.5mcg -] Folic Acid - 1 mg PO DAILY tablet 03/11/19 Tiotropium [place] [Spiriva] 1 inh IH DAILY 06/05/19 Ropinirole HCl 0.25 mg PO HS 06/06/19 Rifaximin [Xifaxan -] 550 mg PO BID #60 tablet 06/12/19 Spironolactone [Aldactone -] 50 mg PO DAILY #30 tablet 06/12/19 Allopurinol [Zyloprim -] 100 mg PO DAILY 08/21/19 Furosemide [Lasix -] 40 mg PO TID 08/21/19 Lactulose (Oral Use) [Cephulac -] 20 gm PO BID 08/21/19 Lipase/Protease/Amylase [Zenpep Dr 1 tab PO TID 08/21/19 25,000 Unit Capsule] Simethicone 125 mg PO QID 08/21/19 REVIEW OF SYSTEMS CONSTITUTIONAL: Absent: fever, chills, diaphoresis, generalized weakness, malaise, loss of appetite,= HEENT: Absent: rhinorrhea, nasal congestion, throat pain, throat swelling, difficulty swallowing, visual changes CARDIOVASCULAR: Absent: chest pain, syncope, palpitations, irregular heart rate, lightheadedness , peripheral edema RESPIRATORY: Absent: cough, shortness of breath, dyspnea with exertion, orthopnea, wheezing, GASTROINTESTINAL: abdominal pain, abdominal distension Absent: nausea, vomiting, diarrhea, constipation, melena, hematochezia GENITOURINARY: Absent: dysuria, frequency, urgency, hesitancy, hematuria, flank pain, MUSCULOSKELETAL: Absent: myalgia, arthralgia, joint swelling, back pain, neck pain SKIN: Absent: rash, itching, pallor HEMATOLOGIC/IMMUNOLOGIC: Absent: easy bleeding, easy bruising, lymphadenopathy, frequent infections ENDOCRINE: Absent: unexplained weight gain, unexplained weight loss, heat intolerance, cold intolerance NEUROLOGIC: Absent: headache, focal weakness or paresthesias, dizziness, unsteady gait, seizure, mental status changes, PSYCHIATRIC: Absent: anxiety, depression, suicidal or homicidal ideation, hallucinations PHYSICAL EXAMINATION Vital Signs - 24 hr 08/21/19 08/21/19 12:15 17:56 Temperature 98 F 97.8 F Pulse Rate 70 Pulse Rate [ 76 Apical] Respiratory 20 18 Rate Blood Pressure 134/73 Blood Pressure 128/70 [Right Arm] O2 Sat by Pulse 96 96 Oximetry (%) GENERAL: Awake, alert, and fully oriented, in no acute distress. HEAD: Normal with no signs of trauma. EYES: Pupils equal, round and reactive to light, extraocular movements intact, mild scleral icterus. EARS, NOSE, THROAT: Oropharynx clear without exudates. Dry mucous membranes. NECK: Normal range of motion, supple without lymphadenopathy, JVD. LUNGS: Breath sounds equal, clear to auscultation bilaterally. No wheezes, and no crackles. No accessory muscle use. HEART: Regular rate and rhythm, normal S1 and S2 without murmur, rub. ABDOMEN: Soft, mildly tender in the lower quadrants, distended with positive fluid wave, normoactive bowel sounds, no guarding, no rebound, no masses. MUSCULOSKELETAL: Normal range of motion at all joints. No bony deformities or tenderness. UPPER EXTREMITIES: 2+ pulses, warm, well-perfused. No cyanosis. No clubbing. No peripheral edema. LOWER EXTREMITIES: 2+ pulses, warm, well-perfused. No calf tenderness. No peripheral edema. NEUROLOGICAL: Cranial nerves II-XII intact. 5/5 muscle strength upper and lower extremities. PSYCHIATRIC: Cooperative. Good eye contact. Appropriate mood and affect. SKIN: Warm, dry, normal turgor, no rashes or lesions noted, normal capillary refill. Scattered echymoses. Laboratory Results - last 24 hr 08/21/19 08/21/19 08/21/19 13:56 14:00 14:00 WBC 6.1 RBC 3.56 L Hgb 10.7 L Hct 32.6 L D MCV 91.7 MCH 30.2 MCHC 32.9 RDW 17.0 H Plt Count 95 L D MPV 10.0 Absolute Neuts (auto) 4.3 Neutrophils % 71.5 Lymphocytes % 10.0 D Monocytes % 14.5 H Eosinophils % 3.0 Basophils % 1.0 D Nucleated RBC % 0 PT with INR INR PTT (Actin FS) Sodium 142 Potassium 3.2 L Chloride 110 H Carbon Dioxide 25 Anion Gap 7 L BUN 18.6 H Creatinine 1.6 H Est GFR (CKD-EPI)AfAm 51.63 Est GFR (CKD-EPI)NonAf 44.55 Random Glucose 82 Calcium 8.4 L Phosphorus Magnesium Total Bilirubin 0.9 AST 56 H ALT 39 Alkaline Phosphatase 181 H Ammonia 35.70 H Creatine Kinase 105 Troponin I < 0.02 Total Protein 7.3 Albumin 2.5 L Lipase 214 08/21/19 08/21/19 14:00 14:00 WBC RBC Hgb Hct MCV MCH MCHC RDW Plt Count MPV Absolute Neuts (auto) Neutrophils % Lymphocytes % Monocytes % Eosinophils % Basophils % Nucleated RBC % PT with INR 14.20 H INR 1.20 H PTT (Actin FS) 29.7 Sodium Potassium Chloride Carbon Dioxide Anion Gap BUN Creatinine Est GFR (CKD-EPI)AfAm Est GFR (CKD-EPI)NonAf Random Glucose Calcium Phosphorus 2.7 Magnesium 1.8 Total Bilirubin AST ALT Alkaline Phosphatase Ammonia Creatine Kinase Troponin I Total Protein Albumin Lipase EKG--> NSR, age indeterminate septal infarct, no ST segment changes, Qtc 439 ASSESSMENT/PLAN: Andrey Lopez is a 64 year old male with a past medical history of HTN, Hep C with cirrhosis (ascites & esophageal banding), liver cancer s/p left liver lobectomy, pancreatic insufficiency, COPD, CKD stage 3, seizure disorder. Liver cirrhosis with ascities - diagnostic tap performed pending full results - unlikely SBP as low WBC and low neutrophil count, pending cultures - ceftriaxone 1g daily for SBP prophylaxis - IR consulted for tap under U/S guidance - GI consulted for evaluation for beta inocencia therapy - resume home Lasix, spirolactone - home lactulose, rifaximin for 2-3 bowel movements daily to avoid hepatic encephalopathy, no current signs of HE - will need adequate outpatient follow up CKD - current CRE 1.6, at baseline - resume home medications - nephrology consulted COPD - resume home meds - Duonebs as needed - not currently in exacerbation Pancreatic insufficiency - restart enzyme replacement Seizure Disorder - resume home Keppra Thrombocytopenia - likely in setting of liver cirrhosis, chronic - continue to monitor and monitor INR GERD - home pantoprazole DVT PPx - avoid chemical prophylaxis in setting of thrombocytopenia - SCDs/TEDs FEN - no standing fluids, avoid IVF in setting of cirrhosis and CKD - continue to monitor electrolytes and replete as necessary, hypokalemia noted and repleted - sodium restricted diet Dispo - admit to Med-surg Family Medical History Family Hx Diabetes: Mother, Father Family Hx Renal Disease: Father (CKD) Other Family History: Mother - HTN Visit type - Emergency Visit Emergency Visit: Yes ED Registration Date: 01/28/20 Care time: The patient presented to the Emergency Department on the above date and was hospitalized for further evaluation of their emergent condition. - New Patient This patient is new to me today: Yes Date on this admission: 08/21/19 - Critical Care Critical Care patient: No
[2019-08-21 19:50] LABS: PERITONEAL RBC 358 /mm3
--- NOTE | 2019-08-21 20:27 | PN ---
Teaching Attending Note Name of Resident: Missael Verdugo ATTENDING PHYSICIAN STATEMENT I saw and evaluated the patient. I reviewed the resident's note and discussed the case with the resident. I agree with the resident's findings and plan as documented. 64 AA Male, h/o HTN, Hep C w/ cirrhosis (ascites & esophageal banding), liver cancer s/p left liver lobectomy, pancreatic insufficiency, COPD, CKD stage 3, seizure disorder who presents with increased abdominal girth and discomfort for the past 1-2 weeks. Patient endorses having gotten abdominal paracentesis in the past w/ relief, but hasn't gotten tapped in months. Follows w/ b and b gang worker at [facility] where he's on a transplant list. Has h/o SBP last year. Denies bleeding from any source, has a history of variceal bleed s/p banding. Denies fever/chills/CP, endorses some difficulty breathing due to worsening abdominal distention, also endorses lower abdominal discomfort and some pain noah. when bending down. In ED pt. abdomen was tapped w/ 100cc of fluid expelled and sent for analysis. PE GA comfortable, AAox3, speaks in full sentences, NAD HEENT NC/AT, EOMI, mildly cachectic, dry MM, neck supple, scleral icterus present Chest CTAB, no wheezing or crackles CVS S1, S2+, RRR Abd markedly distended, +fluid wave, +shifting dullness, BS+, mildly tender to palpation lower abdomen Ext Mild LE edema present b/l Vital Signs - 24 hr 08/21/19 08/21/19 12:15 17:56 Temperature 98 F 97.8 F Pulse Rate 70 Pulse Rate [ 76 Apical] Respiratory 20 18 Rate Blood Pressure 134/73 Blood Pressure 128/70 [Right Arm] O2 Sat by Pulse 96 96 Oximetry (%) Laboratory Results - last 24 hr 08/21/19 08/21/19 08/21/19 13:56 14:00 14:00 WBC 6.1 RBC 3.56 L Hgb 10.7 L Hct 32.6 L D MCV 91.7 MCH 30.2 MCHC 32.9 RDW 17.0 H Plt Count 95 L D MPV 10.0 Absolute Neuts (auto) 4.3 Neutrophils % 71.5 Lymphocytes % 10.0 D Monocytes % 14.5 H Eosinophils % 3.0 Basophils % 1.0 D Nucleated RBC % 0 PT with INR INR PTT (Actin FS) Sodium 142 Potassium 3.2 L Chloride 110 H Carbon Dioxide 25 Anion Gap 7 L BUN 18.6 H Creatinine 1.6 H Est GFR (CKD-EPI)AfAm 51.63 Est GFR (CKD-EPI)NonAf 44.55 Random Glucose 82 Calcium 8.4 L Phosphorus Magnesium Total Bilirubin 0.9 AST 56 H ALT 39 Alkaline Phosphatase 181 H Ammonia 35.70 H Creatine Kinase 105 Troponin I < 0.02 Total Protein 7.3 Albumin 2.5 L Lipase 214 Peritoneal WBC Peritoneal RBC 08/21/19 08/21/19 08/21/19 14:00 14:00 17:41 WBC RBC Hgb Hct MCV MCH MCHC RDW Plt Count MPV Absolute Neuts (auto) Neutrophils % Lymphocytes % Monocytes % Eosinophils % Basophils % Nucleated RBC % PT with INR 14.20 H INR 1.20 H PTT (Actin FS) 29.7 Sodium Potassium Chloride Carbon Dioxide Anion Gap BUN Creatinine Est GFR (CKD-EPI)AfAm Est GFR (CKD-EPI)NonAf Random Glucose Calcium Phosphorus 2.7 Magnesium 1.8 Total Bilirubin AST ALT Alkaline Phosphatase Ammonia Creatine Kinase Troponin I Total Protein Albumin Lipase Peritoneal WBC 171 Peritoneal RBC 358 Home Medications Medication Instructions Recorded levETIRAcetam [Keppra -] 500 mg PO BID tablet 12/06/16 Multivitamin with Iron 1 each PO DAILY 04/27/18 [Multivitamins with Iron] Pantoprazole Sodium [Protonix -] 20 mg PO DAILY 04/27/18 Budesonide/Formeterol Fumarate 1 inh PO BID 06/20/18 [SYMBICORT 160/4.5mcg -] Folic Acid - 1 mg PO DAILY tablet 03/11/19 Tiotropium [place] [Spiriva] 1 inh IH DAILY 06/05/19 Ropinirole HCl 0.25 mg PO HS 06/06/19 Rifaximin [Xifaxan -] 550 mg PO BID #60 tablet 06/12/19 Spironolactone [Aldactone -] 50 mg PO DAILY #30 tablet 06/12/19 Allopurinol [Zyloprim -] 100 mg PO DAILY 08/21/19 Furosemide [Lasix -] 40 mg PO TID 08/21/19 Lactulose (Oral Use) [Cephulac -] 20 gm PO BID 08/21/19 Lipase/Protease/Amylase [[place]eles Curry 1 tab PO TID 08/21/19 25,000 Unit Capsule] Simethicone 125 mg PO QID 08/21/19 Current Medications Generic Name Dose Route Start Last Admin Trade Name Freq PRN Reason Stop Dose Admin Albuterol/Ipratropium 1 amp 08/21/19 19:40 Duoneb - NEB Q6H PRN SHORTNESS OF BREATH Allopurinol 100 mg 08/22/19 10:00 Zyloprim - PO DAILY [facility] Budesonide/Formoterol Fumarate 1 puff 08/21/19 22:00 Symbicort 160/4.5mcg - IH BID [facility]ERO Folic Acid 1 mg 08/22/19 10:00 Folic Acid - PO DAILY [facility] Furosemide 40 mg 08/21/19 22:00 Lasix - PO TID [facility] Ceftriaxone Sodium 1 gm/ 50 mls @ 100 mls/hr 08/22/19 10:00 Dextrose IVPB DAILY [facility] Protocol Lactulose 20 gm 08/21/19 22:00 Cephulac (Oral Use) PO BID [facility] Levetiracetam 500 mg 08/21/19 22:00 Keppra - PO BID [facility] Non-Formulary Medication 1 tab 08/21/19 22:00 Lipase/Protease/Amylase [Angeles Curry 25,000 Unit Capsule] PO TID [facility] Non-Formulary Medication 1 each 08/22/19 10:00 Multivitamin With Iron [Multivitamins With Iron] PO DAILY [facility] Non-Formulary Medication 125 mg 08/21/19 22:00 Simethicone [Simethicone] PO QID [facility] Pantoprazole Sodium 20 mg 08/22/19 10:00 Protonix - PO DAILY [facility] Rifaximin 550 mg 08/21/19 22:00 Xifaxan - PO BID [facility] Ropinirole HCl 0.25 mg 08/21/19 22:00 Requip - PO HS [facility] Spironolactone 50 mg 08/22/19 10:00 Aldactone - PO DAILY [facility] Tiotropium [place] 1 puff 08/22/19 10:00 Spiriva Respimat IH DAILY [facility] A/p: 64 M h/o Hep C liver cirrhosis, HCC s/p resection, GERD, gastritis, former IVDA , pancreatic insufficiency, variceal bleed s/p banding, seizure disorder presents with increased dyspnea and increased abdominal girth suspicious for ? SBP. HCC liver cirrhosis with ascites worsening ascites, will schedule for IR abdominal paracentesis (therapeutic), pending ascitic fluid culture, protein, cell count w/ diff to rule out SBP, in meantime while waiting for culture cont. Ceftriaxone daily to cover empirically for possible SBP Resume Lasix, Spironolactone, Rifaximin, Lactulose to achieve 2-3 BM/day, monitor MS IR consult for abdominal paracentesis GERD restart PPI COPD not in acute exacerbation restart home COPD meds Seizure disorder cont. Keppra h/o Hepatic encephalopathy mental status appropriate, AAox3, no confusion or lethargy cont. Lactulose and Rifaximin Pancreatic insufficiency restart pancreatic enzyme replacement Thrombocytopenia likely d/t liver disease, chronic hold AC in view of low Plt and h/o variceal bleed SCD/CAMMY for now CKD no signs of hepatorenal CRE at baseline avoid nephrotoxins, avoid NSAIDs DVT ppx: SCD/TEDs (due to thrombocytopenia) GI ppx: PPI Med-surg
--- NOTE | 2019-08-21 20:29 | CONSULT ---
Consult Consult Specialty:: Nephrology Reason for Consultation:: CKD - History of Present Illness Chief Complaint: ascites History of Present Illness: Pt is a 64 year old male with pmhx of ckd, htn, hep c, liver cirrhosis, ascites , and copd who presents to the ER with increased ascites. He is on diuretics and is compliant with them. He takes lasix and aldactone. He denies shortness of breath. He complains of abd discomfort. He denies fevers or chills. He has had multiple paracentesis in the past. He denies nsaid use. He has not followed with me since his last hospitalization. 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 Cardio/Vascular: Yes: HTN, Hyperlipdemia Pulmonary: Yes: COPD Gastrointestinal: Yes: Esophageal Varices (Unclear by his history), GERD Hepatobiliary: Yes: Cirrhosis (with sequelae of hepatic encephalopathy, esophageal varices, HCC ), Hepatitis C Renal/: Yes: Renal Inusuff, BPH Musculoskeletal: Yes: Chronic low back pain (discogenic disease) - Alcohol/Substance Use Hx Alcohol Use: No History of Substance Use: reports: Cocaine (states abstinence for 1 year), Heroin - Smoking History Smoking history: Never smoked Have you smoked in the past 12 months: No Aproximately how many cigarettes per day: 1 If you are a former smoker, when did you quit?: 2017 - Social History Usual Living Arrangement: Alone ADL: Support Services Occupation: not currently working History of Recent Travel: No Home Medications - Allergies Allergies/Adverse Reactions: Allergies Allergy/AdvReac Type Severity Reaction Status Date / Time Penicillins Allergy Unknown Verified 04/10/19 12:21 aspirin AdvReac Intermediate Verified 04/10/19 12:21 - Home Medications Home Medications: Ambulatory Orders levETIRAcetam [Keppra -] 500 mg PO BID tablet 12/06/16 Multivitamin with Iron [Multivitamins with Iron] 1 each PO DAILY 04/27/18 Pantoprazole Sodium [Protonix -] 20 mg PO DAILY 04/27/18 Budesonide/Formeterol Fumarate [SYMBICORT 160/4.5mcg -] 1 inh PO BID 06/20/18 Folic Acid - 1 mg PO DAILY tablet 03/11/19 Tiotropium [place] [Spiriva] 1 inh IH DAILY 06/05/19 Ropinirole HCl 0.25 mg PO HS 06/06/19 Rifaximin [Xifaxan -] 550 mg PO BID #60 tablet 06/12/19 Spironolactone [Aldactone -] 50 mg PO DAILY #30 tablet 06/12/19 Allopurinol [Zyloprim -] 100 mg PO DAILY 08/21/19 Furosemide [Lasix -] 40 mg PO TID 08/21/19 Lactulose (Oral Use) [Cephulac -] 20 gm PO BID 08/21/19 Lipase/Protease/Amylase [Zenpep Dr 25,000 Unit Capsule] 1 tab PO TID 08/21/19 Simethicone 125 mg PO QID 08/21/19 Family Medical History Family History: Denies Review of Systems - Review of Systems Constitutional: reports: Malaise Eyes: reports: No Symptoms HENT: reports: No Symptoms Neck: reports: No Symptoms Cardiovascular: reports: No Symptoms Respiratory: reports: No Symptoms Gastrointestinal: reports: Other (ascites) Genitourinary: reports: No Symptoms Musculoskeletal: reports: No Symptoms Integumentary: reports: No Symptoms Neurological: reports: No Symptoms Endocrine: reports: No Symptoms Hematology/Lymphatic: reports: No Symptoms Psychiatric: reports: No Symptoms Physical Exam Vital Signs: Vital Signs Temperature 97.8 F 08/21/19 17:56 Pulse Rate 76 08/21/19 17:56 Respiratory Rate 18 08/21/19 17:56 Blood Pressure 128/70 08/21/19 17:56 O2 Sat by Pulse Oximetry (%) 96 08/21/19 17:56 Constitutional: Yes: Calm Eyes: Yes: Conjunctiva Clear HENT: Yes: Atraumatic Neck: Yes: Supple Cardiovascular: Yes: S1, S2 Respiratory: Yes: CTA Bilaterally Gastrointestinal: Yes: Ascites Renal/: Yes: WNL Musculoskeletal: Yes: WNL Edema: No Neurological: Yes: Oriented Psychiatric: Yes: Oriented Labs: CBC, BMP 08/21/19 14:00 08/21/19 14:00 Laboratory Tests 08/21/19 08/21/19 14:00 14:00 WBC 6.1 Hgb 10.7 L Plt Count 95 L D Sodium 142 Potassium 3.2 L Chloride 110 H Carbon Dioxide 25 BUN 18.6 H Creatinine 1.6 H Imaging - Results X-ray: Report Reviewed Problem List - Problems (1) Abdominal pain Code(s): R10.9 - UNSPECIFIED ABDOMINAL PAIN Qualifiers: Abdominal location: lower abdomen, unspecified Qualified Code(s): R10.30 - Lower abdominal pain, unspecified (2) Ascites Code(s): R18.8 - OTHER ASCITES Qualifiers: Ascites type: other type Qualified Code(s): R18.8 - Other ascites (3) CKD (chronic kidney disease) Code(s): N18.9 - CHRONIC KIDNEY DISEASE, UNSPECIFIED Qualifiers: Chronic kidney disease stage: unspecified stage Qualified Code(s): N18.9 - Chronic kidney disease, unspecified Assessment/Plan Current Medications Generic Name Dose Route Start Last Admin Trade Name Freq PRN Reason Stop Dose Admin Albuterol/Ipratropium 1 amp 08/21/19 19:40 Duoneb - NEB Q6H PRN SHORTNESS OF BREATH Allopurinol 100 mg 08/22/19 10:00 Zyloprim - PO DAILY [facility] Budesonide/Formoterol Fumarate 1 puff 08/21/19 22:00 Symbicort 160/4.5mcg - IH BID [facility] Folic Acid 1 mg 08/22/19 10:00 Folic Acid - PO DAILY [facility] Furosemide 40 mg 08/21/19 22:00 Lasix - PO TID [facility] Ceftriaxone Sodium 1 gm/ 50 mls @ 100 mls/hr 08/22/19 10:00 Dextrose IVPB DAILY [facility] Protocol Lactulose 20 gm 08/21/19 22:00 Cephulac (Oral Use) PO BID [facility] Levetiracetam 500 mg 08/21/19 22:00 Keppra - PO BID [facility] Non-Formulary Medication 1 tab 08/21/19 22:00 Lipase/Protease/Amylase [Zenpep Dr 25,000 Unit Capsule] PO TID [facility] Non-Formulary Medication 1 each 08/22/19 10:00 Multivitamin With Iron [Multivitamins With Iron] PO DAILY [facility] Non-Formulary Medication 125 mg 08/21/19 22:00 Simethicone [Simethicone] PO QID [facility] Pantoprazole Sodium 20 mg 08/22/19 10:00 Protonix - PO DAILY [facility] Rifaximin 550 mg 08/21/19 22:00 Xifaxan - PO BID [facility] Ropinirole HCl 0.25 mg 08/21/19 22:00 Requip - PO HS [facility] Spironolactone 50 mg 08/22/19 10:00 Aldactone - PO DAILY [facility] Tiotropium [place] 1 puff 08/22/19 10:00 Spiriva Respimat IH DAILY [facility] Impression 1. CKD 2. Hep C 3. liver cirrhosis 4. ascites 5. epilepsy 6. substance abuse 7. hx of lobectomy Plan - follow paracentesis cultures and wbc - agree with abx - IR for para - hold lasix and aldactone tomorrow - replace potassium - give albumin if high volume - discussed with ER - cont lactulose and rifiximin
[2019-08-21 20:48] LABS: PERITONEAL FLUID LYMPHOCYTE 26 %; PERITONEAL FLUID MONOCYTE 3 %; PERITONEAL FLUID NEUTROPHIL 11 %
[2019-08-21 20:49] LABS: PERITONEAL FLUID MACROPHAGE 39 %; PERITONEAL FLUID MESOTHELIAL 21 %
[2019-08-21] MEDS ORDERED: oxyCODONE HCL 5 MG TABLET PO ONE (21:05)
[2019-08-21] MEDS: LIPASE/PROTEASE/AMYLASE 6,000 UNIT CAPSULE PO SCH (21:41)
[2019-08-21] MEDS ORDERED: oxyCODONE HCL 5 MG TABLET ONE (21:42)
[2019-08-21] MEDS ORDERED: FUROSEMIDE 40 MG TABLET (FP) PO SCH (22:00)
[2019-08-21] MEDS: levETIRAcetam 500 MG TABLET (FP) PO SCH (23:56)
[2019-08-21] MEDS: SIMETHICONE 80 MG TAB.CHEW (FP) PO SCH (23:58)
[2019-08-21] MEDS: LACTULOSE 20 GM/30 ML UDC (FOR ORAL USE ONLY) PO SCH (23:59)
[2019-08-21] MEDS: RIFAXIMIN 550 MG TABLET (UD) PO SCH (23:59)
[2019-08-21] MEDS: rOPINIRole HCL 0.25 MG TABLET PO SCH (23:59)
[2019-08-22] MEDS: LIPASE/PROTEASE/AMYLASE 6,000 UNIT CAPSULE PO SCH ×4 (00:01→17:40)
[2019-08-22 00:20] VITALS: BMI 21.9
[2019-08-22] MEDS ORDERED: oxyCODONE HCL 5 MG TABLET PO ONE (02:46)
[2019-08-22] MEDS: ALBUTEROL SO4 2.5/IPRATROPIUM 0.5 INH SOL 3 ML VIAL.NEB. NEB PRN (07:50)
[2019-08-22 08:30] LABS: BASO % 1.4 % (0-2.0); EOS % 5.5 % (0-4.5); HEMATOCRIT 32.8 % (35.4-49); HEMOGLOBIN 10.9 GM/dL (11.7-16.9); LYMPH % 12.6 % (8-40); MCH 30.5 pg (25.7-33.7); MCHC 33.2 g/dl (32.0-35.9); MEAN CELL VOLUME 91.8 fl (80-96); MONO % 14.5 % (3.8-10.2); PLATELET COUNT 87 K/MM3 (134-434); RBC 3.57 M/mm3 (4.00-5.60); RDW 17.3 % (11.9-15.9); WHITE BLOOD COUNT 5.1 K/mm3 (4.0-10.0)
--- NOTE | 2019-08-22 08:36 | PN ---
Progress Note, Physician History of Present Illness: 64 year old male with a past medical history of HTN, Hep C with cirrhosis ( ascites & esophageal banding), liver cancer s/p left liver lobectomy, pancreatic insufficiency, COPD, CKD stage 3, seizure disorder. Admitted for ascites management - Current Medication List Current Medications: Active Medications Albuterol/Ipratropium (Duoneb -) 1 amp NEB Q6H PRN PRN Reason: SHORTNESS OF BREATH Last Admin: 08/22/19 07:50 Dose: 1 amp Allopurinol (Zyloprim -) 100 mg PO DAILY [facility] Budesonide/Formoterol Fumarate (Symbicort 160/4.5mcg -) 1 puff IH BID [facility] Last Admin: 08/22/19 00:00 Dose: 1 puff Folic Acid (Folic Acid -) 1 mg PO DAILY [facility] Ceftriaxone Sodium 1 gm/ (Dextrose) 50 mls @ 100 mls/hr IVPB DAILY [facility]; Protocol Lactulose (Cephulac (Oral Use)) 20 gm PO BID [facility] Last Admin: 08/21/19 23:59 Dose: Not Given Levetiracetam (Keppra -) 500 mg PO BID [facility] Last Admin: 08/21/19 23:56 Dose: 500 mg Multivitamins/Minerals (Theragran-M) 1 each PO DAILY [facility] Pancrelipase (Creon Dr 6,000 Units Capsule) 4 cap PO TIDAC [facility] Last Admin: 08/22/19 06:13 Dose: 4 cap Pantoprazole Sodium (Protonix -) 20 mg PO DAILY [facility] Rifaximin (Xifaxan -) 550 mg PO BID [facility] Last Admin: 08/21/19 23:59 Dose: 550 mg Ropinirole HCl (Requip -) 0.25 mg PO HS [facility] Last Admin: 08/21/19 23:59 Dose: 0.25 mg Simethicone (Mylicon -) 80 mg PO QID [facility] Last Admin: 08/21/19 23:58 Dose: 80 mg Tiotropium [place] (Spiriva Respimat) 1 puff IH DAILY [facility] - Objective Vital Signs: Vital Signs Temperature 98.2 F 08/22/19 06:00 Pulse Rate 66 08/22/19 06:00 Respiratory Rate 20 08/22/19 06:00 Blood Pressure 128/77 08/22/19 06:00 O2 Sat by Pulse Oximetry (%) 99 08/22/19 04:53 Constitutional: Yes: No Distress, Calm, Thin Eyes: Yes: EOM Intact, Sclera Icterus HENT: Yes: WNL, Atraumatic, Normocephalic Neck: Yes: WNL, Supple, Trachea Midline Cardiovascular: Yes: WNL, Regular Rate and Rhythm Respiratory: Yes: WNL, Regular, CTA Bilaterally Gastrointestinal: Yes: Normal Bowel Sounds, Soft, Ascites, Distention, Tenderness (diffuse TTP) ...Rectal Exam: Yes: Deferred Genitourinary: Yes: WNL Breast(s): Yes: WNL Musculoskeletal: Yes: WNL Extremities: Yes: WNL Edema: No Peripheral Pulses WNL: Yes Peripheral Pulses: Left Radial: 2+, Right Radial: 2+, Left Doralis Pedis: 2+, Right Dorsalis Pedis: 2+, Left Femoral: 2+, Right Femoral: 2+ Integumentary: Yes: WNL Neurological: Yes: WNL, Alert, Oriented ...Motor Strength: WNL Psychiatric: Yes: WNL Labs: INR, PTT INR 1.20 (0.83-1.09) H 08/21/19 14:00 Problem List - Problems (1) Liver cancer Assessment/Plan: s/p liver resection follow at [facility] with Dr Ly Code(s): C22.9 - MALIG NEOPLASM OF LIVER, NOT SPECIFIED PRIMARY OR SEC (2) COPD (chronic obstructive pulmonary disease) Assessment/Plan: stable c/w symbicort, spiriva Code(s): J44.9 - CHRONIC OBSTRUCTIVE PULMONARY DISEASE, UNSPECIFIED (3) Prophylactic measure Assessment/Plan: FEN Fluids: poor PO intake secondary to ascites Electrolytes: monitor & replete as needed Nutrition: diabetic diet DVT moderate risk sq heparin Dispo Maintain as inpatient full code discharge planning Code(s): Z29.9 - ENCOUNTER FOR PROPHYLACTIC MEASURES, UNSPECIFIED (4) Ascites Assessment/Plan: diagnostic paracentesis yesterday without evidence of SBP therapeutic paracentesis today in IR f/u cultures/cytology after Albumin replacement therapy 6-8g/L removed (if >5L) SBP prophy Code(s): R18.8 - OTHER ASCITES Qualifiers: Ascites type: other type Qualified Code(s): R18.8 - Other ascites (5) Acute on chronic kidney failure Assessment/Plan: appreciate renal consultation hold lasix/aldactone low sodium low protein diet Code(s): N17.9 - ACUTE KIDNEY FAILURE, UNSPECIFIED; N18.9 - CHRONIC KIDNEY DISEASE, UNSPECIFIED (6) Esophageal varices determined by endoscopy Assessment/Plan: stable as per GI would avoid b inocencia therapy in setting of recurrent ascites as has been associated with worse outcomes Code(s): I85.00 - ESOPHAGEAL VARICES WITHOUT BLEEDING (7) Hepatitis C Assessment/Plan: follows with Dr Ly at [facility] Code(s): B19.20 - UNSPECIFIED VIRAL HEPATITIS C WITHOUT HEPATIC COMA (8) Hypertension Assessment/Plan: BP stable Code(s): I10 - ESSENTIAL (PRIMARY) HYPERTENSION (9) Seizures Assessment/Plan: c/e tiffany Code(s): R56.9 - UNSPECIFIED CONVULSIONS Visit type - Emergency Visit Emergency Visit: Yes ED Registration Date: 08/21/19 Care time: The patient presented to the Emergency Department on the above date and was hospitalized for further evaluation of their emergent condition. - New Patient This patient is new to me today: Yes Date on this admission: 08/22/19 - Critical Care Critical Care patient: No - Discharge Referral Referred to [facility] Med P.C.: No
[2019-08-22 08:50] LABS: INR 1.21 (0.83-1.09); PROTHROMBIN TIME (PATIENT) 14.3 SEC (9.7-13.0)
[2019-08-22 08:53] LABS: ACTIVATED PTT 34.1 SECONDS (25.2-36.5)
[2019-08-22 09:22] LABS: ALBUMIN 2.5 g/dl (3.4-5.0); BILIRUBIN,TOTAL 1.6 mg/dL (0.2-1); BLOOD UREA NITROGEN 17.4 mg/dL (7-18); CALCIUM 8.7 mg/dL (8.5-10.1); CREATININE 1.6 mg/dL (0.55-1.3); MAGNESIUM 2.1 mg/dL (1.8-2.4); PHOSPHOROUS 3.1 mg/dL (2.5-4.9); POTASSIUM 3.6 mmol/L (3.5-5.1); TOT PROT 7.1 g/dl (6.4-8.2)
[2019-08-22] MEDS ORDERED: SPIRONOLACTONE 25 MG TABLET (FP) PO SCH (10:00)
--- NOTE | 2019-08-22 10:16 | CON.GI ---
Consult Consult Specialty:: Gastroenterology Reason for Consultation:: Ascites, cirrhosis, need for b inocencia therapy - History of Present Illness Chief Complaint: Abdominal distension History of Present Illness: 64yo male h/o ETOH/HCV cirrhosis, HCC s/p resection (12/2018), esophageal varices s/p banding presents with increased abdominal pain and distension. Pt known to GI service, last seen 05/2019 with altered mental status in setting of medical noncompliance. Pt follows with Dr. Ly (hepatology) at [facility] however states she was on maternity leave and has not had interval follow up appt. Last seen 04/25/19 on review of [facility] records, was scheduled for repeat MRI in 2018 with heme/onc follow up. States cancelled MRI due to claustrophobia. Pt currently reporting increased abdominal distension and discomfort prompting ED evaluation. Has been at correction and reports has been receiving his medications with compliance with diuretics, however was missing doses of lactulose due to increased diarrhea. No LE edema. Denies nausea/vomiting. Appetite ok, has been tolerating po well. Denies fever/chills. Had ~100cc peritoneal fluid removed yesterday in ED (not consistent with SBP), now pending repeat US and therapeutic tap with IR this am. Last EGD in 05/2018 revealing decompressed esophageal varices, schatzki ring, hiatal hernia, portal htn gastropathy (advised repeat EGD in 6 months at that time) - History Source History Provided By: Patient, Medical Record Limitations to Obtaining History: No Limitations - Past Medical History [employer]: Yes: Seizure Cardio/Vascular: Yes: HTN, Hyperlipdemia Pulmonary: Yes: COPD Gastrointestinal: Yes: Esophageal Varices (Unclear by his history), GERD Hepatobiliary: Yes: Cirrhosis (with sequelae of hepatic encephalopathy, esophageal varices, HCC ), Hepatitis C Renal/: Yes: Renal Inusuff, BPH Musculoskeletal: Yes: Chronic low back pain (discogenic disease) - Alcohol/Substance Use Hx Alcohol Use: No History of Substance Use: reports: Cocaine (states abstinence for 1 year), Heroin - Smoking History Smoking history: Never smoked Have you smoked in the past 12 months: No Aproximately how many cigarettes per day: 1 If you are a former smoker, when did you quit?: 2017 - Social History Usual Living Arrangement: Alone ADL: Support Services Occupation: not currently working History of Recent Travel: No Home Medications - Allergies Allergies/Adverse Reactions: Allergies Allergy/AdvReac Type Severity Reaction Status Date / Time Penicillins Allergy Unknown Verified 04/10/19 12:21 aspirin AdvReac Intermediate Verified 04/10/19 12:21 - Home Medications Home Medications: Ambulatory Orders levETIRAcetam [Keppra -] 500 mg PO BID tablet 12/06/16 Multivitamin with Iron [Multivitamins with Iron] 1 each PO DAILY 04/27/18 Pantoprazole Sodium [Protonix -] 20 mg PO DAILY 04/27/18 Budesonide/Formeterol Fumarate [SYMBICORT 160/4.5mcg -] 1 inh PO BID 06/20/18 Folic Acid - 1 mg PO DAILY tablet 03/11/19 Tiotropium [place] [Spiriva] 1 inh IH DAILY 06/05/19 Ropinirole HCl 0.25 mg PO HS 06/06/19 Rifaximin [Xifaxan -] 550 mg PO BID #60 tablet 06/12/19 Spironolactone [Aldactone -] 50 mg PO DAILY #30 tablet 06/12/19 Allopurinol [Zyloprim -] 100 mg PO DAILY 08/21/19 Furosemide [Lasix -] 40 mg PO TID 08/21/19 Lactulose (Oral Use) [Cephulac -] 20 gm PO BID 08/21/19 Lipase/Protease/Amylase [Zenpep Dr 25,000 Unit Capsule] 1 tab PO TID 08/21/19 Simethicone 125 mg PO QID 08/21/19 Review of Systems - Review of Systems Constitutional: reports: No Symptoms Cardiovascular: reports: No Symptoms Respiratory: reports: No Symptoms Gastrointestinal: reports: Abdominal Pain, Other (Abdominal distension) Musculoskeletal: reports: No Symptoms Physical Exam-GI Vital Signs: Vital Signs Temperature 98.0 F 08/22/19 09:24 Pulse Rate 73 08/22/19 09:24 Respiratory Rate 18 08/22/19 09:24 Blood Pressure 139/83 08/22/19 09:24 O2 Sat by Pulse Oximetry (%) 99 08/22/19 04:53 Constitutional: Yes: No Distress, Calm, Other (Awake/alert/oriented x 3) Cardiovascular: Yes: WNL, Regular Rate and Rhythm Respiratory: Yes: WNL, Regular ...Palpate: Yes: Other (Abd distended, +fluid thrill, no tenderness elicited, no rebound or guarding) Edema: No Labs: CBC, BMP 08/22/19 07:12 08/22/19 07:12 INR, PTT INR 1.21 (0.83-1.09) H 08/22/19 07:12 Problem List - Problems (1) Cirrhosis of liver Assessment/Plan: 64yo male h/o ETOH/HCV cirrhosis, HCC s/p resection (12/2018), esophageal varices s/p banding presents with increased abdominal pain and distension. Initial fluid studies not consistent with SBP. -US and paracentesis (therapeutic) pending this am -Await remainder of fluid studies including cytology -Albumin replacement therapy 6-8g/L removed (if >5L) -Diuretic management per renal though limited titration in setting of renal insufficiency - discussed with Dr. Williamson -SBP prophylaxis -Would avoid b inocencia therapy in setting of recurrent ascites as has been associated with worse outcomes -Continue rifaximin and lactulose titrate to 2-3 loose bms -2gNA diet -EGD to be considered for surveillance purposes prior to discharge or can be pursued as oupt - pt to resume follow up with hepatology team at [facility] Code(s): K74.60 - UNSPECIFIED CIRRHOSIS OF LIVER
--- NOTE | 2019-08-22 11:01 | EKG ---
Test Reason : Blood Pressure : / mmHG Vent. Rate : 074 BPM Atrial Rate : 074 BPM P-R Int : 160 ms QRS Dur : 086 ms QT Int : 396 ms P-R-T Axes : 077 000 056 degrees QTc Int : 439 ms NORMAL SINUS RHYTHM POSSIBLE LEFT ATRIAL ENLARGEMENT SEPTAL INFARCT (CITED ON OR BEFORE 24-NOV-2018) ABNORMAL ECG WHEN COMPARED WITH ECG OF 05-JUN-2019 13:05, ST NO LONGER ELEVATED IN ANTERIOR LEADS Confirmed by Daryn Martinez MD ([id number]) on 08/22/2019 11:00:53 AM Referred By: Confirmed By:Daryn Martinez MD
--- NOTE | 2019-08-22 11:24 | PN ---
Progress Note, Physician History of Present Illness: Pt seen and examined at bedside. He is awake and alert. he complains of discomfort from the ascites. - Current Medication List Current Medications: Active Medications Albuterol/Ipratropium (Duoneb -) 1 amp NEB Q6H PRN PRN Reason: SHORTNESS OF BREATH Last Admin: 08/22/19 07:50 Dose: 1 amp Allopurinol (Zyloprim -) 100 mg PO DAILY [facility] Budesonide/Formoterol Fumarate (Symbicort 160/4.5mcg -) 1 puff IH BID [facility] Last Admin: 08/22/19 00:00 Dose: 1 puff Folic Acid (Folic Acid -) 1 mg PO DAILY [facility] Ceftriaxone Sodium 1 gm/ (Dextrose) 50 mls @ 100 mls/hr IVPB DAILY [facility]; Protocol Lactulose (Cephulac (Oral Use)) 20 gm PO BID [facility] Last Admin: 08/21/19 23:59 Dose: Not Given Levetiracetam (Keppra -) 500 mg PO BID [facility] Last Admin: 08/21/19 23:56 Dose: 500 mg Multivitamins/Minerals (Theragran-M) 1 each PO DAILY [facility] Pancrelipase (Creon Dr 6,000 Units Capsule) 4 cap PO TIDAC [facility] Last Admin: 08/22/19 06:13 Dose: 4 cap Pantoprazole Sodium (Protonix -) 20 mg PO DAILY [facility] Rifaximin (Xifaxan -) 550 mg PO BID [facility] Last Admin: 08/21/19 23:59 Dose: 550 mg Ropinirole HCl (Requip -) 0.25 mg PO HS [facility] Last Admin: 08/21/19 23:59 Dose: 0.25 mg Simethicone (Mylicon -) 80 mg PO QID [facility] Last Admin: 08/21/19 23:58 Dose: 80 mg Tiotropium [place] (Spiriva Respimat) 1 puff IH DAILY [facility] - Objective Vital Signs: Vital Signs Temperature 98.0 F 08/22/19 09:24 Pulse Rate 73 08/22/19 09:24 Respiratory Rate 18 08/22/19 09:24 Blood Pressure 139/83 08/22/19 09:24 O2 Sat by Pulse Oximetry (%) 99 08/22/19 04:53 Constitutional: Yes: Calm Eyes: Yes: Conjunctiva Clear HENT: Yes: Atraumatic Neck: Yes: Supple Cardiovascular: Yes: S1, S2 Respiratory: Yes: CTA Bilaterally Gastrointestinal: Yes: Ascites Genitourinary: Yes: WNL Musculoskeletal: Yes: WNL Edema: No Neurological: Yes: Oriented Psychiatric: Yes: Oriented Labs: CBC, BMP 08/22/19 07:12 08/22/19 07:12 INR, PTT INR 1.21 (0.83-1.09) H 08/22/19 07:12 Problem List - Problems (1) Abdominal pain Code(s): R10.9 - UNSPECIFIED ABDOMINAL PAIN Qualifiers: Abdominal location: lower abdomen, unspecified Qualified Code(s): R10.30 - Lower abdominal pain, unspecified (2) Ascites Code(s): R18.8 - OTHER ASCITES Qualifiers: Ascites type: other type Qualified Code(s): R18.8 - Other ascites (3) CKD (chronic kidney disease) Code(s): N18.9 - CHRONIC KIDNEY DISEASE, UNSPECIFIED Qualifiers: Chronic kidney disease stage: unspecified stage Qualified Code(s): N18.9 - Chronic kidney disease, unspecified Assessment/Plan Current Medications Generic Name Dose Route Start Last Admin Trade Name Freq PRN Reason Stop Dose Admin Albumin Human 25 gm 08/22/19 12:30 Albumin Human 25% IVPB 08/22/19 12:31 ONCE ONE Albuterol/Ipratropium 1 amp 08/21/19 19:40 08/22/19 07:50 Duoneb - NEB 1 amp Q6H PRN Administration SHORTNESS OF BREATH Allopurinol 100 mg 08/22/19 10:00 Zyloprim - PO DAILY [facility] Budesonide/Formoterol Fumarate 1 puff 08/21/19 22:00 08/22/19 00:00 Symbicort 160/4.5mcg - IH 1 puff BID [facility] Administration Folic Acid 1 mg 08/22/19 10:00 Folic Acid - PO DAILY [facility] Ceftriaxone Sodium 1 gm/ 50 mls @ 100 mls/hr 08/22/19 10:00 Dextrose IVPB DAILY [facility] Protocol Lactulose 20 gm 08/21/19 22:00 08/21/19 23:59 Cephulac (Oral Use) PO Not Given BID [facility] Levetiracetam 500 mg 08/21/19 22:00 08/21/19 23:56 Keppra - PO 500 mg BID [facility] Administration Multivitamins/Minerals 1 each 08/22/19 10:00 Theragran-M PO DAILY [facility] Pancrelipase 4 cap 08/21/19 07:00 08/22/19 06:[address] 6,000 Units Capsule PO 4 cap TIDAC [facility] Administration Pantoprazole Sodium 20 mg 08/22/19 10:00 Protonix - PO DAILY [facility] Rifaximin 550 mg 08/21/19 22:00 08/21/19 23:59 Xifaxan - PO 550 mg BID [facility] Administration Ropinirole HCl 0.25 mg 08/21/19 22:00 08/21/19 23:59 Requip - PO 0.25 mg HS [facility] Administration Simethicone 80 mg 08/21/19 22:00 08/21/19 23:58 Mylicon - PO 80 mg QID [facility] Administration Tiotropium [place] 1 puff 08/22/19 10:00 Spiriva Respimat IH DAILY [facility] Impression 1. CKD 2. Hep C 3. liver cirrhosis 4. ascites 5. epilepsy 6. substance abuse 7. hx of lobectomy Plan - pt going to IR for para - discussed with GI, will order albumin - am diuretics held - monitor bp - potassium improved - cont lactulose and rifiximin
[2019-08-22] MEDS ORDERED: DEXTROSE 5%-WATER - 50 ML IVPB ONE (12:16)
[2019-08-22] MEDS ORDERED: cefTRIAXone SODIUM 1 GM VIAL ONE (12:16)
[2019-08-22] MEDS ORDERED: ALBUMIN HUMAN 25% 100 ML VIAL IVPB ONE (12:30)
[2019-08-22] MEDS: CEFTRIAXONE 1 GM in DEXTROSE 5%-WATER - 50 ML IVPB SCH (12:33)
[2019-08-22] MEDS: SIMETHICONE 80 MG TAB.CHEW (FP) PO SCH ×4 (12:34→21:07)
[2019-08-22] MEDS: MULTIVITAMINS THER W-MINERALS COMBO TABLET (FP) PO SCH (12:34)
[2019-08-22] MEDS: levETIRAcetam 500 MG TABLET (FP) PO SCH ×2 (12:34→21:07)
[2019-08-22] MEDS: PANTOPRAZOLE 20 MG TABLET PO SCH (12:34)
[2019-08-22] MEDS: FOLIC ACID 1 MG TABLET (FP) PO SCH (12:35)
[2019-08-22] MEDS: ALLOPURINOL 100 MG TABLET (FP) PO SCH (12:35)
[2019-08-22] MEDS: BUDESONIDE/FORMETEROL FUMARATE 160/4.5 mcg INHALER IH SCH ×3 (12:35→21:11)
[2019-08-22] MEDS: LACTULOSE 20 GM/30 ML UDC (FOR ORAL USE ONLY) PO SCH ×2 (12:35→21:08)
[2019-08-22] MEDS: TIOTROPIUM BROMIDE 2.5 MCG (SPIRIVA) RESPIMAT INHALER IH SCH (12:37)
[2019-08-22] MEDS: RIFAXIMIN 550 MG TABLET (UD) PO SCH ×2 (12:37→21:09)
[2019-08-22 13:26] LABS: BF WBC & OTHER NUCLEATED CELLS 112 /mm3
[2019-08-22 14:51] LABS: BODY FLUID MONOCYTE 36 %
[2019-08-22 14:52] LABS: BODY FLUID MACROPHAGES 12 %; BODY FLUID MESOTHELIAL 19 %
[2019-08-22 17:02] LABS: BASO % 1.1 % (0-2.0); HEMATOCRIT 31.3 % (35.4-49); HEMOGLOBIN 10.3 GM/dL (11.7-16.9); LYMPH % 14.7 % (8-40); MCH 30.6 pg (25.7-33.7); MCHC 32.9 g/dl (32.0-35.9); MEAN CELL VOLUME 92.9 fl (80-96); MEAN PLT VOLUME 10.1 fl (7.5-11.1); MONO % 19.8 % (3.8-10.2); NEUT % 59.4 % (42.8-82.8); PLATELET COUNT 82 K/MM3 (134-434); RBC 3.37 M/mm3 (4.00-5.60); RDW 17.1 % (11.9-15.9); WHITE BLOOD COUNT 5.2 K/mm3 (4.0-10.0)
[2019-08-22] MEDS: oxyCODONE HCL 5 MG TABLET PO PRN (17:39)
[2019-08-22 17:40] LABS: ALBUMIN 2.6 g/dl (3.4-5.0); BILIRUBIN,TOTAL 0.8 mg/dL (0.2-1); BLOOD UREA NITROGEN 18.7 mg/dL (7-18); CALCIUM 8.6 mg/dL (8.5-10.1); CREATININE 1.6 mg/dL (0.55-1.3); MAGNESIUM 2.1 mg/dL (1.8-2.4); PHOSPHOROUS 2.2 mg/dL (2.5-4.9); POTASSIUM 3.6 mmol/L (3.5-5.1); TOT PROT 6.6 g/dl (6.4-8.2)
[2019-08-22 22:15] LABS: PLATELET ESTIMATE DECREASED
[2019-08-23] MEDS: rOPINIRole HCL 0.25 MG TABLET PO SCH (00:10)
[2019-08-23] MEDS: oxyCODONE HCL 5 MG TABLET PO PRN ×2 (01:04→11:22)
[2019-08-23 01:58] VITALS: TEMP 98
[2019-08-23] MEDS ORDERED: PT OWN MED DRAWER 7, Y5N ONE ×2 (06:44→09:35)
[2019-08-23] MEDS: LIPASE/PROTEASE/AMYLASE 6,000 UNIT CAPSULE PO SCH ×2 (07:33→11:22)
[2019-08-23] MEDS: ALBUTEROL SO4 2.5/IPRATROPIUM 0.5 INH SOL 3 ML VIAL.NEB. NEB PRN (07:43)
--- NOTE | 2019-08-23 08:20 | DS ---
Physical Exam: SUBJECTIVE: Patient seen and examined OBJECTIVE: Vital Signs Period Temp Pulse Resp BP Sys/Eisenberg Pulse Ox Last 24 Hr 97.6 F-99.0 F 68-84 15-20 125-142/73-83 96 PHYSICAL EXAM Constitutional: Yes: No Distress, Calm, Thin Eyes: Yes: EOM Intact, Sclera Icterus HENT: Yes: WNL, Atraumatic, Normocephalic Neck: Yes: WNL, Supple, Trachea Midline Cardiovascular: Yes: WNL, Regular Rate and Rhythm Respiratory: Yes: WNL, Regular, CTA Bilaterally Gastrointestinal: Yes: Normal Bowel Sounds, Soft, Ascites, less Distention, no tenderness ..Rectal Exam: Yes: Deferred Genitourinary: Yes: WNL Breast(s): Yes: WNL Musculoskeletal: Yes: WNL Extremities: Yes: WNL Edema: No Peripheral Pulses WNL: Yes Peripheral Pulses: Left Radial: 2+, Right Radial: 2+, Left Doralis Pedis: 2+, Right Dorsalis Pedis: 2+, Left Femoral: 2+, Right Femoral: 2+ Integumentary: Yes: WNL Neurological: Yes: WNL, Alert, Oriented ...Motor Strength: WNL Psychiatric: Yes: WNL LABS Laboratory Results - last 24 hr 08/22/19 08/22/19 08/22/19 07:12 07:12 07:12 WBC 5.1 RBC 3.57 L Hgb 10.9 L Hct 32.8 L MCV 91.8 MCH 30.5 MCHC 33.2 RDW 17.3 H Plt Count 87 L MPV 10.0 Absolute Neuts (auto) 3.4 Neutrophils % 66.0 Lymphocytes % 12.6 D Monocytes % 14.5 H Eosinophils % 5.5 H D Basophils % 1.4 Nucleated RBC % 0 Platelet Estimate PT with INR 14.30 H INR 1.21 H PTT (Actin FS) 34.1 Sodium 144 Potassium 3.6 Chloride 110 H Carbon Dioxide 26 Anion Gap 7 L BUN 17.4 Creatinine 1.6 H Est GFR (CKD-EPI)AfAm 51.63 Est GFR (CKD-EPI)NonAf 44.55 Random Glucose 73 L Calcium 8.7 Phosphorus 3.1 Magnesium 2.1 Total Bilirubin 1.6 H AST 45 H ALT 34 Alkaline Phosphatase 154 H Total Protein 7.1 Albumin 2.5 L Fluid Source Fluid WBC Fluid RBC Fluid Neutrophils Fluid Lymphocytes Pleural Monocytes Pleural Macrophages Pleural Mesothelial 08/22/19 08/22/19 08/22/19 11:00 16:00 16:00 WBC 5.2 RBC 3.37 L Hgb 10.3 L Hct 31.3 L MCV 92.9 MCH 30.6 MCHC 32.9 RDW 17.1 H Plt Count 82 L MPV 10.1 Absolute Neuts (auto) 3.1 Neutrophils % 59.4 Lymphocytes % 14.7 Monocytes % 19.8 H Eosinophils % 5.0 H Basophils % 1.1 Nucleated RBC % 0 Platelet Estimate Decreased PT with INR INR PTT (Actin FS) Sodium 146 H Potassium 3.6 Chloride 111 H Carbon Dioxide 28 Anion Gap 7 L BUN 18.7 H Creatinine 1.6 H Est GFR (CKD-EPI)AfAm 51.63 Est GFR (CKD-EPI)NonAf 44.55 Random Glucose 96 Calcium 8.6 Phosphorus 2.2 L Magnesium 2.1 Total Bilirubin 0.8 AST 36 ALT 28 Alkaline Phosphatase 130 H Total Protein 6.6 Albumin 2.6 L Fluid Source Abdominal Fluid WBC 112 Fluid RBC 356 Fluid Neutrophils 3 Fluid Lymphocytes 30 Pleural Monocytes 36 Pleural Macrophages 12 Pleural Mesothelial 19 HOSPITAL COURSE: Date of Admission:08/21/19 Date of Discharge: 08/23/19 Problem List - Problems (1) Liver cancer Assessment/Plan: s/p liver resection follow at [facility] with Dr Ly Code(s): C22.9 - MALIG NEOPLASM OF LIVER, NOT SPECIFIED PRIMARY OR SEC (2) COPD (chronic obstructive pulmonary disease) Assessment/Plan: stable c/w symbicort, spiriva Code(s): J44.9 - CHRONIC OBSTRUCTIVE PULMONARY DISEASE, UNSPECIFIED (3) Prophylactic measure Assessment/Plan: FEN Fluids: poor PO intake secondary to ascites Electrolytes: stable Nutrition: diabetic diet DVT moderate risk sq heparin Dispo discharge back to SNF Code(s): Z29.9 - ENCOUNTER FOR PROPHYLACTIC MEASURES, UNSPECIFIED (4) Ascites Assessment/Plan: peritoneol fluid without evidence of SBP cultues ngtd SBP prophy with cipro as outpatient follow with Dr Ly Code(s): R18.8 - OTHER ASCITES Qualifiers: Ascites type: other type Qualified Code(s): R18.8 - Other ascites (5) Acute on chronic kidney failure Assessment/Plan: appreciate renal consultation c/w lasix/aldactone on discharge low sodium low protein diet Code(s): N17.9 - ACUTE KIDNEY FAILURE, UNSPECIFIED; N18.9 - CHRONIC KIDNEY DISEASE, UNSPECIFIED (6) Esophageal varices determined by endoscopy Assessment/Plan: stable as per GI would avoid b inocencia therapy in setting of recurrent ascites as has been associated with worse outcomes Code(s): I85.00 - ESOPHAGEAL VARICES WITHOUT BLEEDING (7) Hepatitis C Assessment/Plan: follows with Dr Ly at [facility] Code(s): B19.20 - UNSPECIFIED VIRAL HEPATITIS C WITHOUT HEPATIC COMA (8) Hypertension Assessment/Plan: BP stable Code(s): I10 - ESSENTIAL (PRIMARY) HYPERTENSION (9) Seizures Assessment/Plan: c/e keppra Code(s): R56.9 - UNSPECIFIED CONVULSIONS Discharge back to SNF with follow up with home GI-Dr Ly Minutes to complete discharge: 35 Discharge Summary Problems reviewed: Yes Reason For Visit: ASCITES,HEPATIC CIRRHOSIS,CHRONIC KIDNEY DISEASE Current Active Problems Abdominal pain (Acute) Ascites (Acute) COPD (chronic obstructive pulmonary disease) (Acute) Cirrhosis of liver (Acute) Liver cancer (Acute) Prophylactic measure (Acute) Hospital Course: HOSPITAL COURSE: Date of Admission:08/21/19 Date of Discharge: 08/23/19 Problem List - Problems (1) Liver cancer Assessment/Plan: s/p liver resection follow at [facility] with Dr Ly Code(s): C22.9 - MALIG NEOPLASM OF LIVER, NOT SPECIFIED PRIMARY OR SEC (2) COPD (chronic obstructive pulmonary disease) Assessment/Plan: stable c/w symbicort, spiriva Code(s): J44.9 - CHRONIC OBSTRUCTIVE PULMONARY DISEASE, UNSPECIFIED (3) Prophylactic measure Assessment/Plan: FEN Fluids: poor PO intake secondary to ascites Electrolytes: stable Nutrition: diabetic diet DVT moderate risk sq heparin Dispo discharge back to SNF Code(s): Z29.9 - ENCOUNTER FOR PROPHYLACTIC MEASURES, UNSPECIFIED (4) Ascites Assessment/Plan: peritoneol fluid without evidence of SBP cultues ngtd SBP prophy with cipro as outpatient follow with Dr Ly Code(s): R18.8 - OTHER ASCITES Qualifiers: Ascites type: other type Qualified Code(s): R18.8 - Other ascites (5) Acute on chronic kidney failure Assessment/Plan: appreciate renal consultation c/w lasix/aldactone on discharge low sodium low protein diet Code(s): N17.9 - ACUTE KIDNEY FAILURE, UNSPECIFIED; N18.9 - CHRONIC KIDNEY DISEASE, UNSPECIFIED (6) Esophageal varices determined by endoscopy Assessment/Plan: stable as per GI would avoid b inocencia therapy in setting of recurrent ascites as has been associated with worse outcomes Code(s): I85.00 - ESOPHAGEAL VARICES WITHOUT BLEEDING (7) Hepatitis C Assessment/Plan: follows with Dr Ly at [facility] Code(s): B19.20 - UNSPECIFIED VIRAL HEPATITIS C WITHOUT HEPATIC COMA (8) Hypertension Assessment/Plan: BP stable Code(s): I10 - ESSENTIAL (PRIMARY) HYPERTENSION (9) Seizures Assessment/Plan: c/e keppra Code(s): R56.9 - UNSPECIFIED CONVULSIONS Discharge back to SNF with follow up with home GI-Dr Ly Condition: Improved - Instructions Diet, Activity, Other Instructions: DISCHARGE YOUR VISIT You came to the hospital because your abdomen filled with fluid (ascites) from your liver failure. You had a paracentesis (abdominal tap) to remove the fluid. The fluid was not infected. MEDICATIONS Please continue to take your home medications as prescribed. There was some new medications: Ciprofloxin 500mg daily (antibiotic to prevent infection in fluid) DIET Continue your home diet ADDITIONAL CARE Please make an appointment to see your primary care provider, Dr Ly (or who is covering her on materity leave) 1 week from today. Talk to her about having an open MRI (not closed inside to tube).Speak to her about the process of liver transplation ADDITIONAL INFORMATION Please call 911 or come directly to the emergency department if you experience unusual headache, vision change, shortness of breath, chest pain, numbness, tingling, loss of alertness/awareness, loss of function, unusual bleeding or any alarming symptoms. Thank you for allowing me to care for you. Serafin Juarez, ACNP, [facility] [phone] Disposition: [facility] - Home Medications Comprehensive Discharge Medication List: Ambulatory Orders levETIRAcetam [Keppra -] 500 mg PO BID tablet 12/06/16 Multivitamin with Iron [Multivitamins with Iron] 1 each PO DAILY 04/27/18 Pantoprazole Sodium [Protonix -] 20 mg PO DAILY 04/27/18 Budesonide/Formeterol Fumarate [SYMBICORT 160/4.5mcg -] 1 inh PO BID 06/20/18 Folic Acid - 1 mg PO DAILY tablet 03/11/19 Tiotropium [place] [Spiriva] 1 inh IH DAILY 06/05/19 Ropinirole HCl 0.25 mg PO HS 06/06/19 Rifaximin [Xifaxan -] 550 mg PO BID #60 tablet 06/12/19 Spironolactone [Aldactone -] 50 mg PO DAILY #30 tablet 06/12/19 Allopurinol [Zyloprim -] 100 mg PO DAILY 08/21/19 Furosemide [Lasix -] 40 mg PO TID 08/21/19 Lactulose (Oral Use) [Cephulac -] 20 gm PO BID 08/21/19 Lipase/Protease/Amylase [Zenpep Dr 25,000 Unit Capsule] 1 tab PO TID 08/21/19 Simethicone 125 mg PO QID 08/21/19 Ciprofloxacin [Cipro -] 500 mg PO DAILY #30 tablet 08/23/19 Prescription Drug Monitoring Program (I-STOP) results: I-STOP not reviewed Problem List - Problems (1) Liver cancer Code(s): C22.9 - MALIG NEOPLASM OF LIVER, NOT SPECIFIED PRIMARY OR SEC (2) COPD (chronic obstructive pulmonary disease) Code(s): J44.9 - CHRONIC OBSTRUCTIVE PULMONARY DISEASE, UNSPECIFIED (3) Prophylactic measure Code(s): Z29.9 - ENCOUNTER FOR PROPHYLACTIC MEASURES, UNSPECIFIED (4) Ascites Code(s): R18.8 - OTHER ASCITES Qualifiers: Ascites type: other type Qualified Code(s): R18.8 - Other ascites (5) Acute on chronic kidney failure Code(s): N17.9 - ACUTE KIDNEY FAILURE, UNSPECIFIED; N18.9 - CHRONIC KIDNEY DISEASE, UNSPECIFIED (6) Esophageal varices determined by endoscopy Code(s): I85.00 - ESOPHAGEAL VARICES WITHOUT BLEEDING (7) Hepatitis C Code(s): B19.20 - UNSPECIFIED VIRAL HEPATITIS C WITHOUT HEPATIC COMA (8) Hypertension Code(s): I10 - ESSENTIAL (PRIMARY) HYPERTENSION (9) Seizures Code(s): R56.9 - UNSPECIFIED CONVULSIONS This patient is new to me today: No Emergency Visit: Yes ED Registration Date: 08/21/19 Care time: The patient presented to the Emergency Department on the above date and was hospitalized for further evaluation of their emergent condition. Critical Care patient: No - Discharge Referral Referred to [facility] Med P.C.: No
[2019-08-23 08:43] LABS: INR 1.22 (0.83-1.09); PROTHROMBIN TIME (PATIENT) 14.4 SEC (9.7-13.0)
[2019-08-23] MEDS ORDERED: cefTRIAXone SODIUM 1 GM VIAL ONE (09:35)
[2019-08-23] MEDS ORDERED: DEXTROSE 5%-WATER - 50 ML IVPB ONE (09:35)
[2019-08-23] MEDS: RIFAXIMIN 550 MG TABLET (UD) PO SCH (09:39)
[2019-08-23] MEDS: SIMETHICONE 80 MG TAB.CHEW (FP) PO SCH ×2 (09:39→13:15)
[2019-08-23] MEDS: ALLOPURINOL 100 MG TABLET (FP) PO SCH (09:39)
[2019-08-23] MEDS: PANTOPRAZOLE 20 MG TABLET PO SCH (09:39)
[2019-08-23] MEDS: FOLIC ACID 1 MG TABLET (FP) PO SCH (09:39)
[2019-08-23] MEDS: levETIRAcetam 500 MG TABLET (FP) PO SCH (09:39)
[2019-08-23] MEDS: LACTULOSE 20 GM/30 ML UDC (FOR ORAL USE ONLY) PO SCH (09:39)
[2019-08-23] MEDS: CEFTRIAXONE 1 GM in DEXTROSE 5%-WATER - 50 ML IVPB SCH (09:39)
[2019-08-23] MEDS: MULTIVITAMINS THER W-MINERALS COMBO TABLET (FP) PO SCH (09:39)
[2019-08-23] MEDS: BUDESONIDE/FORMETEROL FUMARATE 160/4.5 mcg INHALER IH SCH (09:40)
[2019-08-23] MEDS: TIOTROPIUM BROMIDE 2.5 MCG (SPIRIVA) RESPIMAT INHALER IH SCH (09:40)
[2019-08-23 10:27] VITALS: BP 127/83; PULSE 81
--- NOTE | 2019-08-23 11:55 | DS ---
Physical Exam: SUBJECTIVE: Patient seen and examined OBJECTIVE: Vital Signs Period Temp Pulse Resp BP Sys/Eisenberg Pulse Ox Last 24 Hr 97.6 F-99.0 F 68-84 15-20 125-142/73-83 96-98 PHYSICAL EXAM GENERAL: The patient is awake, alert, and fully oriented, in no acute distress. HEAD: Normal with no signs of trauma. EYES: PERRL, extraocular movements intact, sclera anicteric, conjunctiva clear. ENT: Ears normal, nares patent, oropharynx clear without exudates, moist mucous membranes. NECK: Trachea midline, full range of motion, supple. LUNGS: Breath sounds equal, clear to auscultation bilaterally, no wheezes, no crackles, no accessory muscle use. HEART: Regular rate and rhythm, S1, S2 without murmur, rub or gallop. ABDOMEN: Soft, nontender, nondistended, normoactive bowel sounds, no guarding, no rebound, no hepatosplenomegaly, no masses. EXTREMITIES: 2+ pulses, warm, well-perfused, no edema. NEUROLOGICAL: Cranial nerves II through XII grossly intact. Normal speech, gait not observed. PSYCH: Normal mood, normal affect. SKIN: Warm, dry, normal turgor, no rashes or lesions noted. LABS Laboratory Results - last 24 hr 08/22/19 08/22/19 08/22/19 11:00 16:00 16:00 WBC 5.2 RBC 3.37 L Hgb 10.3 L Hct 31.3 L MCV 92.9 MCH 30.6 MCHC 32.9 RDW 17.1 H Plt Count 82 L MPV 10.1 Absolute Neuts (auto) 3.1 Neutrophils % 59.4 Lymphocytes % 14.7 Monocytes % 19.8 H Eosinophils % 5.0 H Basophils % 1.1 Nucleated RBC % 0 Platelet Estimate Decreased PT with INR INR Sodium 146 H Potassium 3.6 Chloride 111 H Carbon Dioxide 28 Anion Gap 7 L BUN 18.7 H Creatinine 1.6 H Est GFR (CKD-EPI)AfAm 51.63 Est GFR (CKD-EPI)NonAf 44.55 Random Glucose 96 Calcium 8.6 Phosphorus 2.2 L Magnesium 2.1 Total Bilirubin 0.8 AST 36 ALT 28 Alkaline Phosphatase 130 H Total Protein 6.6 Albumin 2.6 L Fluid Source Abdominal Fluid WBC 112 Fluid RBC 356 Fluid Neutrophils 3 Fluid Lymphocytes 30 Pleural Monocytes 36 Pleural Macrophages 12 Pleural Mesothelial 19 08/23/19 08:00 WBC RBC Hgb Hct MCV MCH MCHC RDW Plt Count MPV Absolute Neuts (auto) Neutrophils % Lymphocytes % Monocytes % Eosinophils % Basophils % Nucleated RBC % Platelet Estimate PT with INR 14.40 H INR 1.22 H Sodium Potassium Chloride Carbon Dioxide Anion Gap BUN Creatinine Est GFR (CKD-EPI)AfAm Est GFR (CKD-EPI)NonAf Random Glucose Calcium Phosphorus Magnesium Total Bilirubin AST ALT Alkaline Phosphatase Total Protein Albumin Fluid Source Fluid WBC Fluid RBC Fluid Neutrophils Fluid Lymphocytes Pleural Monocytes Pleural Macrophages Pleural Mesothelial HOSPITAL COURSE: Date of Admission:08/21/19 Date of Discharge: 08/23/19 Minutes to complete discharge: 35 Discharge Summary Problems reviewed: Yes Reason For Visit: ASCITES,HEPATIC CIRRHOSIS,CHRONIC KIDNEY DISEASE Current Active Problems Abdominal pain (Acute) Ascites (Acute) COPD (chronic obstructive pulmonary disease) (Acute) Cirrhosis of liver (Acute) Liver cancer (Acute) Prophylactic measure (Acute) Condition: Improved - Instructions Diet, Activity, Other Instructions: DISCHARGE YOUR VISIT You came to the hospital because your abdomen filled with fluid (ascites) from your liver failure. You had a paracentesis (abdominal tap) to remove the fluid. The fluid was not infected. MEDICATIONS Please continue to take your home medications as prescribed. There was some new medications: Ciprofloxin 500mg daily (antibiotic to prevent infection in fluid) DIET Continue your home diet ADDITIONAL CARE Please make an appointment to see your primary care provider, Dr Ly (or who is covering her on materity leave) 1 week from today. Talk to her about having an open MRI (not closed inside to tube) ADDITIONAL INFORMATION Please call 911 or come directly to the emergency department if you experience unusual headache, vision change, shortness of breath, chest pain, numbness, tingling, loss of alertness/awareness, loss of function, unusual bleeding or any alarming symptoms. Thank you for allowing me to care for you. Serafin Juarez, ACNP, [facility] [phone] Disposition: [facility] - Home Medications Comprehensive Discharge Medication List: Ambulatory Orders levETIRAcetam [Keppra -] 500 mg PO BID tablet 12/06/16 Multivitamin with Iron [Multivitamins with Iron] 1 each PO DAILY 04/27/18 Pantoprazole Sodium [Protonix -] 20 mg PO DAILY 04/27/18 Budesonide/Formeterol Fumarate [SYMBICORT 160/4.5mcg -] 1 inh PO BID 06/20/18 Folic Acid - 1 mg PO DAILY tablet 03/11/19 Tiotropium [place] [Spiriva] 1 inh IH DAILY 06/05/19 Ropinirole HCl 0.25 mg PO HS 06/06/19 Rifaximin [Xifaxan -] 550 mg PO BID #60 tablet 06/12/19 Spironolactone [Aldactone -] 50 mg PO DAILY #30 tablet 06/12/19 Allopurinol [Zyloprim -] 100 mg PO DAILY 08/21/19 Furosemide [Lasix -] 40 mg PO TID 08/21/19 Lactulose (Oral Use) [Cephulac -] 20 gm PO BID 08/21/19 Lipase/Protease/Amylase [Zenpep Dr 25,000 Unit Capsule] 1 tab PO TID 08/21/19 Simethicone 125 mg PO QID 08/21/19 Ciprofloxacin [Cipro -] 500 mg PO DAILY #30 tablet 08/23/19 Problem List - Problems (1) Liver cancer Code(s): C22.9 - MALIG NEOPLASM OF LIVER, NOT SPECIFIED PRIMARY OR SEC (2) COPD (chronic obstructive pulmonary disease) Code(s): J44.9 - CHRONIC OBSTRUCTIVE PULMONARY DISEASE, UNSPECIFIED (3) Prophylactic measure Code(s): Z29.9 - ENCOUNTER FOR PROPHYLACTIC MEASURES, UNSPECIFIED (4) Ascites Code(s): R18.8 - OTHER ASCITES Qualifiers: Ascites type: other type Qualified Code(s): R18.8 - Other ascites (5) Acute on chronic kidney failure Code(s): N17.9 - ACUTE KIDNEY FAILURE, UNSPECIFIED; N18.9 - CHRONIC KIDNEY DISEASE, UNSPECIFIED (6) Esophageal varices determined by endoscopy Code(s): I85.00 - ESOPHAGEAL VARICES WITHOUT BLEEDING (7) Hepatitis C Code(s): B19.20 - UNSPECIFIED VIRAL HEPATITIS C WITHOUT HEPATIC COMA (8) Hypertension Code(s): I10 - ESSENTIAL (PRIMARY) HYPERTENSION (9) Seizures Code(s): R56.9 - UNSPECIFIED CONVULSIONS - Discharge Referral Referred to [facility] Med P.C.: No
[2019-08-23 16:08] LABS: BODY FLUID ALBUMIN 0.4 g/dL (Not Estab.)
[2019-08-24] MEDS ORDERED: CIPROFLOXACIN 500 MG TABLET (RESTRICTED TO ID) PO ONE (10:00)
--- NOTE | 2019-08-24 16:17 | PATH ---
Cytology Non-Gynecological Report Patient Name: COLTON VALENTINO Med. Rec. #: [id number] /Age/Gender: 1955 (Age: 64) / M Account: [id number] Location: [facility] MED/SURG Taken: 08/22/2019 Received: 08/23/2019 Reported: 08/24/2019 Physicians: Juanito Soto M.D. Specimen(s) Received A: ABDOMINAL FLUID B: ABDOMINAL FLUID Clinical History Ascites Final Diagnosis A AND B: ABDOMINAL FLUID, PARACENTESIS: SATISFACTORY FOR EVALUATION BENIGN (NO MALIGNANT CELLS IDENTIFIED). MESOTHELIAL CELLS, MACROPHAGES AND LYMPHOCYTES PRESENT. Electronically Signed Nikolay Hurtado M.D. Gross Description A. Approximately 50cc of yellow fluid received fixed in 50% alcohol. One cytospin and one cellblock prepared. B. Approximately 3000cc of yellow fluid received fresh. One cytospin and one cellblock prepared.
== END 2019-08-23 15:06 | DRG 433 ==
LOC: JER 12:09 → JERBED 16:48 → J8W 22:56
PROVIDERS: ATTEND Nurse Practitioner Acute Care
PROC: 0W9G3ZX Drainage of Peritoneal Cavity, Percutaneous Approach, Diagnostic (ICD-10-PCS; principal; 2019-08-22)
DX: K70.31 Alcoholic cirrhosis of liver with ascites (principal); J98.11 Atelectasis; I85.00 Esophageal varices without bleeding; C22.9 Malignant neoplasm of liver, not specified as primary or secondary; N17.9 Acute kidney failure, unspecified; N18.3 Chronic kidney disease, stage 3 (moderate); J44.9 Chronic obstructive pulmonary disease, unspecified; K86.89 Other specified diseases of pancreas; K21.9 Gastro-esophageal reflux disease without esophagitis; B19.20 Unspecified viral hepatitis C without hepatic coma; I12.9 Hypertensive chronic kidney disease with stage 1 through stage 4 chronic kidney disease, or unspecified chronic kidney disease; D69.6 Thrombocytopenia, unspecified; E87.6 Hypokalemia
CPT/HCPCS: 36415; 71045-TC-FY; 76942-TC; 80053; 82042; 82140; 82150; 82465; 82550; 82945; 83615; 83690; 83735; 83986; 84100; 84157; 84478; 84484; 85025; 85610; 85730; 87070; 87075; 87102; 87116; 87205; 87206; 87210; 88108; 88305-TC; 89051; 93005; 93010; 94640; 97116-GP; 97161-GP; 99284-25